=== PATIENT | male | born 1945 | race Caucasian/White ===

== ENCOUNTER → 2020-07-25 10:34 | Outpatient (BNVA) | payer MEDICARE, SELFPAY | PROVIDERS: PCP Internal Medicine; Referring Provider Internal Medicine; Visit Provider Internal Medicine Cardiovascular Disease | DX: I13.0 Hypertensive heart and chronic kidney disease with heart failure and stage 1 through stage 4 chronic kidney disease, or unspecified chronic kidney disease (principal); I50.30 Unspecified diastolic (congestive) heart failure; N18.9 Chronic kidney disease, unspecified; I48.0 Paroxysmal atrial fibrillation; E66.9 Obesity, unspecified; Z68.42 Body mass index [BMI] 45.0-49.9, adult; Z79.01 Long term (current) use of anticoagulants; Z79.899 Other long term (current) drug therapy | CPT/HCPCS: 93005; 99212 ==

== ENCOUNTER 2020-07-31 10:43 | Outpatient (REF) | payer MEDICARE, SELFPAY ==
--- NOTE | 2020-07-31 11:17 | XR_ITS ---
EXAMINATION: XR CHEST CLINICAL INFORMATION: Obesity COMPARISON: Previous chest x-ray April 2017 TECHNIQUE: 2 views of the chest were obtained. FINDINGS: The cardiac and mediastinal contours are stable. The lungs are well inflated. There is linear scarring or subsegmental atelectasis in the left midlung. The lungs are otherwise clear. There is no pleural effusion or pneumothorax. There are degenerative changes of the spine. XR/XR chest 2V IMPRESSION: No evidence for acute disease in the chest. Well-inflated lungs. Scarring or subsegmental atelectasis in the left midlung.
[2020-07-31 12:34] LABS: Alanine Aminotransferase 19 U/L (0-40); Alkaline Phosphatase 102 U/L (39-117); Anion Gap 11 (12-20); Aspartate Amino Transferase 23 U/L (5-37); Bilirubin Direct 0.4 mg/dL (0.0-0.5); Bilirubin Total 0.8 mg/dL (0.0-1.0); Blood Urea Nitrogen 32 mg/dL (9-16); Calcium 9.1 mg/dL (8.4-10.2); Carbon Dioxide 33 mmol/L (22-29); Chloride 99 mmol/L (96-108); Estimated Glomerular Filt Rate 44; Glucose Random 125 mg/dL (60-115); Potassium 4.6 mmol/l (3.3-5.1); Sodium 138 mmol/L (135-145); Total Protein 7.5 g/dL (6.5-8.0)
[2020-07-31 12:35] LABS: B Type Natriuretic Peptide 97 pg/mL (<100)
[2020-07-31 12:49] LABS: TSH reflex Free T4 1.48 mIU/mL (0.32-4.0)
== END 2020-07-31 10:44 | disposition home or self-care (01) ==
LOC: HO.LAB 10:43
PROVIDERS: PCP Internal Medicine; Visit Provider Internal Medicine Cardiovascular Disease
DX: I13.0 Hypertensive heart and chronic kidney disease with heart failure and stage 1 through stage 4 chronic kidney disease, or unspecified chronic kidney disease (principal); N18.9 Chronic kidney disease, unspecified; I50.30 Unspecified diastolic (congestive) heart failure; I48.0 Paroxysmal atrial fibrillation
CPT/HCPCS: 71046; 80048; 80076; 83880; 84443

== ENCOUNTER → 2021-01-24 10:26 | Outpatient (REF) | payer MEDICARE, SELFPAY ==
--- NOTE | 2021-01-24 10:35 | CA_ITS ---
Transthoracic Echocardiogram Patient (Last, First, Middle): Philip Ramirez P Gender: Male Date of : 1945 Age: 75 Procedure Date: 01/24/2021 Procedure Type: Transthoracic Echocardiogram Location: OP Height: 175.26 cm Weight: 140.16 kg BSA: 2.49 m2 Heart Rate: bpm BP: 127 / 70 mmHg Lottery Office Manager: KEYSHAWN Referring MD: Jean Kennedy MD Symptoms: I10 - Essential (primary) hypertension Study Quality: Fair/contrast ECG Rhythm: Sinus Conclusions: - The left ventricular systolic function is normal. The visually estimated ejection fraction is between 65-70%. - There is mild aortic valve stenosis. There is mild aortic valve regurgitation. Findings Procedure Information Contrast agent, definity, is being given per protocol without apparent complications. Left Ventricle Normal left ventricular cavity size. There is mildly increased left ventricular wall thickness. The left ventricular systolic function is normal. The visually estimated ejection fraction is between 65-70%. There is no evidence of regional wall motion abnormalities. Evidence suggests grade I (mild) diastolic dysfunction. Right Ventricle Normal right ventricular cavity size and systolic function. Atria The left atrium is mildly dilated. The right atrium is normal in size. Aortic Valve There is a normal trileaflet aortic valve. There is mild calcification of the aortic valve. There is mild aortic valve stenosis. The peak aortic velocity is 2.88 m/s with a calculated peak gradient of 33 mmHg. The mean gradient is 16 mmHg. The aortic valve area is 1.56 cm2. There is mild aortic valve regurgitation. Mitral Valve The mitral valve appears normal. There is no mitral valve regurgitation. There is no mitral valve stenosis. Pulmonic Valve The pulmonic valve was not well visualized. Tricuspid Valve There is trace tricuspid valve regurgitation. The pulmonary artery systolic pressure is normal. Great Vessels The aortic annulus, sinuses of valsalva, and asc aorta are normal in size. Venous The inferior vena cava is normal in size and collapses greater than 50% with inspiration. Pericardium/Pleural There is no evidence of pericardial effusion. Prior Study Comparison No significant change compared to prior study dated: 11/29/2019. Measurements 2D Linear Measurements IVSd: 1.06 0.6-0.9/0.6-1.0 cm LVIDd: 4.51 3.9-5.3/4.2-5.9 cm LVIDd Index: 1.81 2.4-3.2/2.2-3.1 cm/m2 LVIDs: 2.89 2.0-3.6 cm LVPWd: 1.03 0.7-1.1 cm Ao Root: 3.70 2.1-3.5 cm LA Diam: 4.10 2.7-3.8/3.0-4.0 cm LAIDs Index: 1.65 1.5-2.3 cm/m2 LV Mass: 203.59 67-162/88-224 g LV Mass Index: 81.76 43-95/49-115 g/m2 LVOT Diam: 2.10 3.0+(-)1.3 cm 2D Systolic Function EF 4C: 59.50 >55% EF 2C: 62.60 >55% EF BiP: 61.60 >55% Mitral Valve MV Pk E: 0.74 MV PK A: 0.91 MV Decel Time: 405.00 E/A: 0.80 E'Lateral: 10.30 E'Medial: 5.61 E/E' Med: 13.20 E/E' Lat: 7.20 PHT: 119.00 MVA PHT: 1.85 Decel [place]: 1.83 Aortic Valve AoV Pk Andrew: 2.88 AoV Mn Andrew: 1.83 AoV VTI: 0.64 AoV Pk Grad: 33.00 Aov Mn Grad: 16.00 TAD Cont.VTI: 1.56 LVOT LVOT Pk Andrew: 1.10 LVOT Mn Andrew: 0.75 LVOT VTI: 0.29 LVOT Pk Grad: 5.00 LVOT Mn Grad: 3.00 LVOT Diam: 2.10 LVOT Area: 3.46 Diastolic Function MV Pk E: 0.74 MV Pk A: 0.91 E/A: 0.80 E'Medial: 5.61 E/E' Med: 13.20 E' Laterial: 10.30 E/E' Lat: 7.20 Great Vessels Aorta Ao Root-2D: 3.70 2.0-3.7 cm Ao Asc: 3.90 2.1-3.4 cm Updated in Other Vendor System with Status of Final Rogelio Haro MD electronically signed on 01/26/2021 2:33:55 PM with status of Final
== END ==
LOC: HO.CARD 10:26
PROVIDERS: PCP Internal Medicine; Visit Provider Internal Medicine Cardiovascular Disease
DX: I48.0 Paroxysmal atrial fibrillation (principal); I11.0 Hypertensive heart disease with heart failure; I50.30 Unspecified diastolic (congestive) heart failure
CPT/HCPCS: 93306; Q9957

== ENCOUNTER 2021-01-30 10:23 | Outpatient (REF) | payer MEDICARE, SELFPAY ==
[2021-01-30 12:23] LABS: Mean Corpuscular HGB Conc 32.5 g/dl (31.0-36.0); Mean Corpuscular Hemoglobin 33.9 pg (27.0-33.0); Mean Corpuscular Volume 104.4 fL (80-98); Mean Platelet Volume 10.5 fL (9.4-12.4); Platelet Count 238 X10*3/uL (160-400); Red Blood Count 3.83 X10*6/uL (4.60-5.80); Red Cell Distribution Width 14.9 % (11.0-16.0); White Blood Count 9.4 X10*3/uL (4.8-10.8)
[2021-01-30 12:56] LABS: Anion Gap 13 (12-20); Blood Urea Nitrogen 23 mg/dL (9-16); Calcium 9.5 mg/dL (8.4-10.2); Carbon Dioxide 33 mmol/L (22-29); Chloride 96 mmol/L (96-108); Estimated Glomerular Filt Rate 41; Glucose Random 138 mg/dL (60-115); Potassium 4.5 mmol/L (3.3-5.1); Sodium 137 mmol/L (135-145)
== END 2021-01-30 10:24 | disposition home or self-care (01) ==
LOC: HO.LAB 10:23
PROVIDERS: PCP Internal Medicine; Referring Provider Internal Medicine; Visit Provider Internal Medicine Cardiovascular Disease
DX: I13.0 Hypertensive heart and chronic kidney disease with heart failure and stage 1 through stage 4 chronic kidney disease, or unspecified chronic kidney disease (principal); I50.30 Unspecified diastolic (congestive) heart failure; N18.9 Chronic kidney disease, unspecified; I48.0 Paroxysmal atrial fibrillation; I35.0 Nonrheumatic aortic (valve) stenosis; Z79.01 Long term (current) use of anticoagulants; Z79.899 Other long term (current) drug therapy
CPT/HCPCS: 36415; 80048; 85027; 93005; 99212

== ENCOUNTER 2021-03-03 10:18 | Emergency (ER) | payer MEDICARE, SELFPAY ==
--- NOTE | ~2021-03-03 | XR_ITS ---
EXAMINATION: XR CHEST CLINICAL INFORMATION: Shortness of breath. COMPARISON: Chest 07/31/2020 TECHNIQUE: Frontal view of the chest was obtained. FINDINGS: The lungs are well-expanded and clear. The heart size and pulmonary vascularity is normal. No gross bony abnormality seen. XR/XR chest 1V IMPRESSION: Unremarkable chest examination.
--- NOTE | ~2021-03-03 | US_ITS ---
EXAMINATION: US VENOUS ULTRASOUND WITH DOPPLER LOWER EXTREMITY, BILATERAL CLINICAL INFORMATION: Shortness of breath and bilateral lower extremity edema. COMPARISON: None TECHNIQUE: Ultrasound of the deep veins is performed from the hip to the calf with compression sonography and color and pulse Doppler assessment. Spectral analysis with color-flow imaging is performed. FINDINGS: Technically limited due to large patient's body habitus. RIGHT: There is normal venous compression and respiratory variation and augmented flow. The visualized common femoral vein, superficial femoral vein, profunda femoral vein, popliteal vein, and the trifurcation region shows no evidence of deep venous thrombosis. There is no significant popliteal fossa cyst. LEFT: There is normal venous compression and respiratory variation and augmented flow. The visualized common femoral vein, superficial femoral vein, profunda femoral vein, popliteal vein, and the trifurcation region shows no evidence of deep venous thrombosis. There is no significant popliteal fossa cyst. If the patient's symptoms persist, followup ultrasound in 5 days 7 days might be of value to exclude proximal propagation from a non-visualized calf vein. US/US venous duplex LE BI IMPRESSION: No DVT demonstrated in the bilateral lower extremity. Technically limited study due to patient's body habitus.
[2021-03-03 10:32] VITALS: BP 134/65; PULSE 69; RESP 18; TEMP 36.5; O2SAT 92; BMI 45.8
--- NOTE | 2021-03-03 12:00 | ECG_ITS ---
Test Reason : SHORTNESS OF BREATH Blood Pressure : / mmHG Vent. Rate : 058 BPM Atrial Rate : 058 BPM P-R Int : 000 ms QRS Dur : 086 ms QT Int : 426 ms P-R-T Axes : 000 -05 042 degrees QTc Int : 418 ms Atrial fibrillation with slow ventricular response Abnormal ECG When compared with ECG of 06-FEB-2016 07:19, Atrial fibrillation has replaced Sinus rhythm Referred By: Nikky Pires Electronically Signed By:ELENITA GORE MD
[2021-03-03] MEDS: Furosemide 40 MG/4 ML VIAL IVPUSH (12:54)
[2021-03-03 12:56] VITALS: BP 149/60; PULSE 59; O2SAT 99
[2021-03-03 12:57] LABS: MANUAL DIFF FLAG NO
--- NOTE | 2021-03-03 12:58 | ED.SOB ---
HPI - SOB/Dyspnea General Chief Complaint: Dyspnea Stated Complaint: DIFF BREATHING Time Seen by Provider: 03/03/21 11:59 Source: patient and family Mode of arrival: ambulatory Limitations: no limitations History of Present Illness HPI Narrative: 75-year-old male with a past medical history of atrial fibrillation currently on Xarelto, heart failure with preserved ejection fraction, aortic stenosis, hypertension, CKD and obesity presenting to the ED with complaints of shortness of breath/dyspnea on exertion/orthopnea for the past 4 days worse today with associated intermittent dry cough. Patient also reports worsening lower extremity edema. He denies any dizziness, headaches, fevers, changes in vision, nausea/vomiting, productive cough, palpitations, chest pain, abdominal pain, back pain, dysuria, calf tenderness, recent travel or sick contacts or any other symptoms complaints or concerns at this time. MD elicited complaint: shortness of breath and cough Pertinent past history: congestive heart failure and other (Atrial fibrillation, heart failure, aortic stenosis, hypertension, CKD) Onset (ago): day(s) (Four days worse today) Timing: constant Severity: moderate Exacerbating factors: lying flat, exertion, movement, coughing, inspiration and deep breaths Relieving factors: nothing Known history of: other (See above) Associated symptoms: other (Lower extremity edema) Treatment prior to arrival: none Related Data Home oxygen amount: none Home Medications Medication Instructions Recorded Confirmed allopurinol 100 mg tablet 100 mg PO tab 07/25/20 01/30/21 amiodarone 200 mg tablet 100 mg PO tab 07/25/20 01/30/21 eabhmykebo-ewvnfblitsxfd-zdjsrhwg tab PO 07/25/20 01/30/21 50 mg-325 mg-40 mg tablet cholecalciferol (vitamin D3) 25 25 mcg PO DAILY 07/25/20 01/30/21 mcg (1,000 unit) capsule multivitamin 1 tab PO DAILY 07/25/20 01/30/21 omega-3 fatty acids 1,000 mg 1,000 mg PO DAILY 07/25/20 01/30/21 capsule losartan 50 mg tablet 50 mg PO DAILY 01/30/21 01/30/21 Previous Rx's Medication Instructions Recorded propranolol 120 mg capsule,24 120 mg PO DAILY #30 cap 09/13/20 hr,extended release furosemide 20 mg tablet 20 mg PO DAILY #90 tab 02/06/21 rivaroxaban 15 mg tablet 15 mg PO DAILY #90 tab 02/06/21 furosemide [Lasix] 40 mg PO DAILY 30 Days #30 tab 03/03/21 Allergies Allergy/AdvReac Type Severity Reaction Status Date / Time No Known Allergies Allergy Unverified 06/08/20 14:43 [No Known Allergies*] Review of Systems Review of Systems: Constitutional : positive Weight loss, No Fever, No Chills, No Night Sweats, No Fatigue, No Malaise ENT/Mouth : No Hearing loss, No Ear Pain, No Nasal Congestion, No Sinus Pain, No Hoarseness, No sore throat, No Rhinorrhea, No Swallowing Difficulty Eyes: No Eye Pain, No Swelling, No Redness, No Foreign Body, No Discharge, No Vision Changes Cardiovascular : Positive shortness of breath/dyspnea on exertion/orthopnea/lower extremity edema, No Chest Pain, No Palpitations Respiratory : Positive dry intermittent Cough, No Sputum, No Wheezing, No Smoke Exposure, No Dyspnea Gastrointestinal : No Nausea, No Vomiting, No Diarrhea, No Constipation, No abdominal Pain, No Hematochezia, No Melena Genitourinary : no irregular bleeding, No Dysuria, No Urinary Frequency, No Hematuria, No Urinary Incontinence, No Urgency, No Flank Pain, No Urinary Flow Changes, No Hesitancy Musculoskeletal : No joint pain, No Myalgias, No Joint Swelling Skin : No Skin Lesions, No rash Neuro : No Weakness, No Numbness, No Paresthesias, No Loss of Consciousness, No Dizziness, No Headache Psych : No Anxiety/Panic, No Depression, No SI/HI/AH/VH, No Social Issues, Heme/Lymph: No Bruising, No Bleeding,No Lymphadenopathy Endocrine : No Polyuria, No Polydipsia, No Temperature Intolerance Yes all other systems are reviewed and are negative [facility] Past Medical History Attestation statement: The following information was validated with the patient. Medical History (HFpEF) heart failure with preserved ejection fraction Aortic stenosis CKD (chronic kidney disease) HTN (hypertension) Obesity Paroxysmal atrial fibrillation Surgical History History of surgery on wrist Family History Family History Father Cancer Mother Dementia Social History Social History Advance Directives: Yes Advance Directives Information Provided: No Advance Directives on File: No Physical Exam Vital Signs: Vital Signs: Last Vital Signs Temp 97.7 F 03/03/21 10:32 Pulse 55 03/03/21 16:07 Resp 19 03/03/21 16:07 BP 154/60 H 03/03/21 16:07 Pulse Ox 100 03/03/21 16:07 Body Mass Index 45.8 vital signs have been reviewed as normal and appeared to be correct. Blood pressure normal. Heart rate normal. Respiration rate normal. Temperature normal. Oxygen saturation hypoxic at 88-89% on RA. Appearance: Alert. Oriented X3. acute respiratory distress. Head: Normal external exam. Normocephalic. Atraumatic. Eyes: PERRLA. EOMI. Conjunctiva and sclera normal. Eyelids normal. ENT: EAC normal. TM's Normal. Pharynx normal. Uvula midline. Moist mucous membranes. No trismus noted. No drooling noted. No muffled voice noted. Neck: Normal inspection. Neck supple. FROM. No adenopathy. Thyroid Normal. No meningeal signs. No neck mass noted. CVS: Normal heart rate and rhythm. Heart sound normal. Pulses normal throughout. No murmurs/rales/gallops. Respiratory: Acute respiratory distress pain with deep inspiration although Breath sounds normal. No wheezes/rales/rhonchi noted. Chest nontender. No accessory muscle usage noted or decreased air movement noted. Abdomen: Soft and nontender. Bowel sounds normal in all 4 quadrants. No distention noted. No organomegaly noted. No visible injury noted. Back: No CVA tenderness. Full range of motion noted. No rashes/lesion/induration/fluctuance or signs of infection noted. Skin: Skin warm and dry. Normal skin color. Normal skin turgor. No rashes/lesions/lacerations noted. Extremities: No lower extremity edema. Extremities exhibit normal range of motion. Extremities nontender. Neuro: Oriented X 3. No motor deficit. No sensory deficit. Reflexes normal. Normal steady gait. No focal neuro deficits noted. Vascular: + radial pulses/+ 2 distal pedal pulses/+2 dorsalis pedis b/l. Normal cap refill. No cyanosis noted to upper extremity nails and lower extremity toes nails. Course Course Course Narrative: 12noon -75-year-old male with a past medical history of atrial fibrillation currently on Xarelto, heart failure with preserved ejection fraction, aortic stenosis, hypertension, CKD and obesity presenting to the ED with complaints of shortness of breath/dyspnea on exertion/orthopnea for the past 4 days worse today with associated intermittent dry cough. Patient also reports worsening lower extremity edema. -On exam patient is alert oriented x3 and acute respiratory distress with an oxygen of 88 through 89% on room air therefore I placed him immediately on 2-3 L of nasal cannula oxygen is now satting at 92-96% on 2-3 L of nasal cannula oxygen. Otherwise all other vitals are within normal limits. Lungs clear to auscultation. CV RRR. Positive +3 pitting edema to bilateral lower extremity although no calf tenderness is noted. Plan: Labs, chest x-ray, EKG, bilateral venous duplex ultrasound of lower extremity provide 40 mg of IV Lasix then re-evaluate. Reevaluation(s) Reevaluation #1: - labs reviewed and patient with an elevated white blood cell count at 11,000. Baseline anemia similar when compared to prior. BUN 25. Alkaline phosphate 118. BNP 270. Troponin 6.5. Otherwise all other labs are within normal limits. - EKG revealed atrial fibrillation with slow ventricular response with a ventricular rate of 58 no acute ischemic changes are noted. Similar when compared to prior EKG on 02/06/2016. - chest x-ray within normal limits no acute processes are noted. - venous duplex ultrasound of lower extremity negative for any DVTs although it was a limited study due to patient's body habitus. Therefore they recommended to repeat ultrasound in 5-7 days. - therefore I explained to the patient that he will need a CTA of his chest to evaluate for possible PE and then when he went into the CT scan room to have the CT scan done he reported that he refused to have the CT scan done due to his very claustrophobic and he is declining any medications to help him get through the CTA of his chest. - I also offered a V/Q scan although patient is also refusing reporting that he cannot stay still or lay down flat for 2 hours. - therefore ordered a VBG and plan will be to admit for hypoxia of unknown cause. Time: 15:50 Reevaluation #2: - when I went to admit the patient with Dr. Chung the patient's oxygen saturation was 100% we took him off of the oxygen through nasal cannula and he is steady at 96 through 100% on room air and he reports that he urinated over a L of urine and this is when he started to feel better. - therefore I do not believe this is the PE due to patient is already on Xarelto and is taking as prescribed daily. He also is not tachycardic he is actually bradycardic. Clinically patient appears to have fluid overload therefore I believe it is safe to discharge the patient increasing his Lasix dose to 40 mg instead of his normal 20 mg and instructions return if any new or worsening symptoms follow-up with resistance welder. Patient understands agrees with this plan. Time: 16:42 MDM - SOB/Dyspnea Medical Records Attestation: I reviewed the patient's medical records. Lab Data Attestation: I reviewed the patient's lab results. Result diagrams: 03/03/21 12:45 03/03/21 12:48 Labs: Lab Results 03/03/21 03/03/21 03/03/21 Range/Units 12:44 12:44 12:45 WBC 11.1 H (4.8-10.8) X10*3/uL RBC 3.75 L (4.60-5.80) X10*6/uL Hgb 12.5 L (14.0-18.0) g/dl Hct 39.3 L (42-52) % MCV 104.8 H (80-98) fL MCH 33.3 H (27.0-33.0) pg MCHC 31.8 (31.0-36.0) g/dl RDW 15.1 (11.0-16.0) % Plt Count 231 (160-400) X10*3/uL MPV 9.9 (9.4-12.4) fL Immature Gran % (Auto) 0.6 H (0.0-0.4) % Neut % (Auto) 79.3 H (45-73) % Lymph % (Auto) 10.4 L (20-40) % Sampson % (Auto) 7.1 (2-11) % Eos % (Auto) 2.3 (0-4) % Baso % (Auto) 0.3 (0-2) % Lymph # (Auto) 1.2 (1.2-4.9) X10*3/uL Sampson # (Auto) 0.8 (0.1-1.2) X10*3/uL Eos # (Auto) 0.3 (0.0-0.4) X10*3/uL Baso # (Auto) 0.0 (0.0-0.2) X10*3/uL Abs Immat Gran (auto) 0.07 H (0.00-0.03) X10*3/uL Absolute Neuts (auto) 8.8 H (2.0-8.3) X10*3/uL Absolute Nucleated RBC 0.000 (0.0-0.012) X10*3/uL Nucleated RBC % (auto) 0.0 (0.0-0.2) /100WBC PT (10.8-13.0) SEC INR (0.9-1.1) VBG pH (7.32-7.43) VBG pCO2 mmHg VBG pO2 mmHg VBG HCO3 (22-26) mmol/L VBG O2 Saturation % VBG Base Excess mmol/L Sodium (135-145) mmol/L Potassium (3.3-5.1) mmol/L Chloride (96-108) mmol/L Carbon Dioxide (22-29) mmol/L Anion Gap (12-20) BUN (9-16) mg/dL Creatinine (0.5-1.4) mg/dL Estim Creat Clear Calc Estimated GFR Random Glucose (60-115) mg/dL Calcium (8.4-10.2) mg/dL Magnesium (1.6-2.6) mg/dL Ferritin (20-250) ng/mL Total Bilirubin (0.0-1.0) mg/dL AST (5-37) U/L ALT (0-40) U/L Alkaline Phosphatase (39-117) U/L Lactate Dehydrogenase (118-273) U/L Troponin I High Sens (<3.5-35.0) ng/L B-Natriuretic Peptide (<100) pg/mL Total Protein (6.5-8.0) g/dL Albumin (3.5-5.0) g/dL Procalcitonin 0.06 ng/mL Urine Color Urine Appearance Urine pH (5.0-8.0) Ur Specific Kimball (1.005-1.025) Urine Protein (NEG-TRACE) MG/DL Urine Glucose (UA) (NEG) MG/DL Urine Ketones (NEG) MG/DL Urine Blood (NEG) Urine Nitrite (NEG) Ur Leukocyte Esterase (NEG) Coronavirus (PCR) NEGATIVE (Negative) Influenza Type A (PCR) NEGATIVE (Negative) Influenza Type B (PCR) NEGATIVE (Negative) RSV RNA Qual (PCR) NEGATIVE (Negative) 03/03/21 03/03/21 03/03/21 Range/Units 12:45 12:45 12:48 WBC (4.8-10.8) X10*3/uL RBC (4.60-5.80) X10*6/uL Hgb (14.0-18.0) g/dl Hct (42-52) % MCV (80-98) fL MCH (27.0-33.0) pg MCHC (31.0-36.0) g/dl RDW (11.0-16.0) % Plt Count (160-400) X10*3/uL MPV (9.4-12.4) fL Immature Gran % (Auto) (0.0-0.4) % Neut % (Auto) (45-73) % Lymph % (Auto) (20-40) % Sampson % (Auto) (2-11) % Eos % (Auto) (0-4) % Baso % (Auto) (0-2) % Lymph # (Auto) (1.2-4.9) X10*3/uL Sampson # (Auto) (0.1-1.2) X10*3/uL Eos # (Auto) (0.0-0.4) X10*3/uL Baso # (Auto) (0.0-0.2) X10*3/uL Abs Immat Gran (auto) (0.00-0.03) X10*3/uL Absolute Neuts (auto) (2.0-8.3) X10*3/uL Absolute Nucleated RBC (0.0-0.012) X10*3/uL Nucleated RBC % (auto) (0.0-0.2) /100WBC PT 18.2 H (10.8-13.0) SEC INR 1.5 H (0.9-1.1) VBG pH (7.32-7.43) VBG pCO2 mmHg VBG pO2 mmHg VBG HCO3 (22-26) mmol/L VBG O2 Saturation % VBG Base Excess mmol/L Sodium (135-145) mmol/L Potassium (3.3-5.1) mmol/L Chloride (96-108) mmol/L Carbon Dioxide (22-29) mmol/L Anion Gap (12-20) BUN (9-16) mg/dL Creatinine (0.5-1.4) mg/dL Estim Creat Clear Calc Estimated GFR Random Glucose (60-115) mg/dL Calcium (8.4-10.2) mg/dL Magnesium 2.2 (1.6-2.6) mg/dL Ferritin (20-250) ng/mL Total Bilirubin (0.0-1.0) mg/dL AST (5-37) U/L ALT (0-40) U/L Alkaline Phosphatase (39-117) U/L Lactate Dehydrogenase (118-273) U/L Troponin I High Sens 6.5 (<3.5-35.0) ng/L B-Natriuretic Peptide 270 H (<100) pg/mL Total Protein (6.5-8.0) g/dL Albumin (3.5-5.0) g/dL Procalcitonin ng/mL Urine Color Urine Appearance Urine pH (5.0-8.0) Ur Specific Kimball (1.005-1.025) Urine Protein (NEG-TRACE) MG/DL Urine Glucose (UA) (NEG) MG/DL Urine Ketones (NEG) MG/DL Urine Blood (NEG) Urine Nitrite (NEG) Ur Leukocyte Esterase (NEG) Coronavirus (PCR) (Negative) Influenza Type A (PCR) (Negative) Influenza Type B (PCR) (Negative) RSV RNA Qual (PCR) (Negative) 03/03/21 03/03/21 03/03/21 Range/Units 12:48 15:24 15:42 WBC (4.8-10.8) X10*3/uL RBC (4.60-5.80) X10*6/uL Hgb (14.0-18.0) g/dl Hct (42-52) % MCV (80-98) fL MCH (27.0-33.0) pg MCHC (31.0-36.0) g/dl RDW (11.0-16.0) % Plt Count (160-400) X10*3/uL MPV (9.4-12.4) fL Immature Gran % (Auto) (0.0-0.4) % Neut % (Auto) (45-73) % Lymph % (Auto) (20-40) % Sampson % (Auto) (2-11) % Eos % (Auto) (0-4) % Baso % (Auto) (0-2) % Lymph # (Auto) (1.2-4.9) X10*3/uL Sampson # (Auto) (0.1-1.2) X10*3/uL Eos # (Auto) (0.0-0.4) X10*3/uL Baso # (Auto) (0.0-0.2) X10*3/uL Abs Immat Gran (auto) (0.00-0.03) X10*3/uL Absolute Neuts (auto) (2.0-8.3) X10*3/uL Absolute Nucleated RBC (0.0-0.012) X10*3/uL Nucleated RBC % (auto) (0.0-0.2) /100WBC PT (10.8-13.0) SEC INR (0.9-1.1) VBG pH (7.32-7.43) VBG pCO2 mmHg VBG pO2 mmHg VBG HCO3 (22-26) mmol/L VBG O2 Saturation % VBG Base Excess mmol/L Sodium 139 (135-145) mmol/L Potassium 4.4 (3.3-5.1) mmol/L Chloride 101 (96-108) mmol/L Carbon Dioxide 33 H (22-29) mmol/L Anion Gap 9 L (12-20) BUN 25 H (9-16) mg/dL Creatinine 1.31 (0.5-1.4) mg/dL Estim Creat Clear Calc 67.9 Estimated GFR 53 Random Glucose 115 (60-115) mg/dL Calcium 8.9 D (8.4-10.2) mg/dL Magnesium (1.6-2.6) mg/dL Ferritin 71 (20-250) ng/mL Total Bilirubin 0.6 (0.0-1.0) mg/dL AST 19 (5-37) U/L ALT 14 (0-40) U/L Alkaline Phosphatase 118 H (39-117) U/L Lactate Dehydrogenase 204 (118-273) U/L Troponin I High Sens 8.9 (<3.5-35.0) ng/L B-Natriuretic Peptide (<100) pg/mL Total Protein 7.0 (6.5-8.0) g/dL Albumin 3.8 (3.5-5.0) g/dL Procalcitonin ng/mL Urine Color STRAW Urine Appearance CLEAR Urine pH 5.5 (5.0-8.0) Ur Specific Kimball 1.010 (1.005-1.025) Urine Protein NEG (NEG-TRACE) MG/DL Urine Glucose (UA) NEG (NEG) MG/DL Urine Ketones NEG (NEG) MG/DL Urine Blood NEG (NEG) Urine Nitrite NEG (NEG) Ur Leukocyte Esterase NEG (NEG) Coronavirus (PCR) (Negative) Influenza Type A (PCR) (Negative) Influenza Type B (PCR) (Negative) RSV RNA Qual (PCR) (Negative) 03/03/21 Range/Units 15:45 WBC (4.8-10.8) X10*3/uL RBC (4.60-5.80) X10*6/uL Hgb (14.0-18.0) g/dl Hct (42-52) % MCV (80-98) fL MCH (27.0-33.0) pg MCHC (31.0-36.0) g/dl RDW (11.0-16.0) % Plt Count (160-400) X10*3/uL MPV (9.4-12.4) fL Immature Gran % (Auto) (0.0-0.4) % Neut % (Auto) (45-73) % Lymph % (Auto) (20-40) % Sampson % (Auto) (2-11) % Eos % (Auto) (0-4) % Baso % (Auto) (0-2) % Lymph # (Auto) (1.2-4.9) X10*3/uL Sampson # (Auto) (0.1-1.2) X10*3/uL Eos # (Auto) (0.0-0.4) X10*3/uL Baso # (Auto) (0.0-0.2) X10*3/uL Abs Immat Gran (auto) (0.00-0.03) X10*3/uL Absolute Neuts (auto) (2.0-8.3) X10*3/uL Absolute Nucleated RBC (0.0-0.012) X10*3/uL Nucleated RBC % (auto) (0.0-0.2) /100WBC PT (10.8-13.0) SEC INR (0.9-1.1) VBG pH 7.37 (7.32-7.43) VBG pCO2 65 mmHg VBG pO2 58 mmHg VBG HCO3 39 H (22-26) mmol/L VBG O2 Saturation 86.0 % VBG Base Excess 11.0 mmol/L Sodium (135-145) mmol/L Potassium (3.3-5.1) mmol/L Chloride (96-108) mmol/L Carbon Dioxide (22-29) mmol/L Anion Gap (12-20) BUN (9-16) mg/dL Creatinine (0.5-1.4) mg/dL Estim Creat Clear Calc Estimated GFR Random Glucose (60-115) mg/dL Calcium (8.4-10.2) mg/dL Magnesium (1.6-2.6) mg/dL Ferritin (20-250) ng/mL Total Bilirubin (0.0-1.0) mg/dL AST (5-37) U/L ALT (0-40) U/L Alkaline Phosphatase (39-117) U/L Lactate Dehydrogenase (118-273) U/L Troponin I High Sens (<3.5-35.0) ng/L B-Natriuretic Peptide (<100) pg/mL Total Protein (6.5-8.0) g/dL Albumin (3.5-5.0) g/dL Procalcitonin ng/mL Urine Color Urine Appearance Urine pH (5.0-8.0) Ur Specific Kimball (1.005-1.025) Urine Protein (NEG-TRACE) MG/DL Urine Glucose (UA) (NEG) MG/DL Urine Ketones (NEG) MG/DL Urine Blood (NEG) Urine Nitrite (NEG) Ur Leukocyte Esterase (NEG) Coronavirus (PCR) (Negative) Influenza Type A (PCR) (Negative) Influenza Type B (PCR) (Negative) RSV RNA Qual (PCR) (Negative) Imaging Data Chest x-ray: Attestation: I personally reviewed and interpreted this imaging study as follows: Radiologist's impression: FINDINGS: The lungs are well-expanded and clear. The heart size and pulmonary vascularity is normal. No gross bony abnormality seen. XR/XR chest 1V IMPRESSION: Unremarkable chest examination. ECG Data Attestation: I personally reviewed and interpreted this ECG as follows: ECG interpretation date: 03/03/21 ECG interpretation time: 12:50 Interpretation: Atrial fibrillation with slow ventricular response with a ventricular rate of 58 no acute ischemic changes are noted similar compared to prior EKG. Critical Care Time Critical Care Time Critical Care Time: Yes Total Critical Care Time: 60 Attestation: I personally attest to this time spent taking care of the patient Discharge Plan Discharge Clinical Impression: CHF (congestive heart failure), Fluid overload Patient Disposition: Home, Self-Care Instructions: Heart Failure (ED) Prescriptions: New furosemide [Lasix] 40 mg tablet 40 mg PO DAILY 30 Days Qty: 30 RF: 0 No Action propranolol 120 mg capsule,extended release 24 hr 120 mg PO DAILY Qty: 30 RF: 4 Xarelto 15 mg tablet 15 mg PO DAILY Qty: 90 RF: 1 furosemide 20 mg tablet 20 mg PO DAILY Qty: 90 RF: 1 byhjaqwfmg-nzhdiujoklkhb-xzcl 50-325-40 mg tablet PO RF: 0 omega-3 fatty acids [Fish Oil Concentrate] 1,000 mg capsule 1,000 mg PO DAILY RF: 0 multivitamin Tablet 1 tab PO DAILY RF: 0 cholecalciferol (vitamin D3) 25 mcg (1,000 unit) capsule 25 mcg PO DAILY RF: 0 allopurinol 100 mg tablet 100 mg PO RF: 0 amiodarone 200 mg tablet 100 mg PO RF: 0 losartan 50 mg tablet 50 mg PO DAILY RF: 0 Referrals: Barndi Mayes MD [Primary Care Provider] - 2 days Jean Kennedy MD [Physician] - 2 days Print Language: Polish
[2021-03-03 12:59] LABS: Basophils Percent Auto 0.3 % (0-2); Eosinophils Absolute Auto 0.3 X10*3/uL (0.0-0.4); Eosinophils Percent Auto 2.3 % (0-4); Hematocrit 39.3 % (42-52); Hemoglobin 12.5 g/dl (14.0-18.0); Imm Gran Abs Auto 0.07 X10*3/uL (0.00-0.03); Imm Gran Pct Auto 0.6 % (0.0-0.4); Lymphocytes Absolute Auto 1.2 X10*3/uL (1.2-4.9); Lymphocytes Percent Auto 10.4 % (20-40); Mean Corpuscular HGB Conc 31.8 g/dl (31.0-36.0); Mean Corpuscular Hemoglobin 33.3 pg (27.0-33.0); Mean Corpuscular Volume 104.8 fL (80-98); Mean Platelet Volume 9.9 fL (9.4-12.4); Monocytes Absolute Auto 0.8 X10*3/uL (0.1-1.2); Monocytes Percent Auto 7.1 % (2-11); Neutrophils Absolute Auto 8.8 X10*3/uL (2.0-8.3); Neutrophils Percent Auto 79.3 % (45-73); Platelet Count 231 X10*3/uL (160-400); Red Blood Count 3.75 X10*6/uL (4.60-5.80); Red Cell Distribution Width 15.1 % (11.0-16.0); White Blood Count 11.1 X10*3/uL (4.8-10.8)
[2021-03-03 13:05] LABS: INTERNATIONAL NORM RATIO 1.5 (0.9-1.1); Prothrombin Time 18.2 SEC (10.8-13.0)
[2021-03-03 13:22] LABS: Alanine Aminotransferase 14 U/L (0-40); Albumin Level 3.8 g/dL (3.5-5.0); Alkaline Phosphatase 118 U/L (39-117); Anion Gap 9 (12-20); Aspartate Amino Transferase 19 U/L (5-37); Bilirubin Total 0.6 mg/dL (0.0-1.0); Blood Urea Nitrogen 25 mg/dL (9-16); Calcium 8.9 mg/dL (8.4-10.2); Carbon Dioxide 33 mmol/L (22-29); Chloride 101 mmol/L (96-108); Creatinine Clr Calc Pharmacy 67.9; Estimated Glomerular Filt Rate 53; Glucose Random 115 mg/dL (60-115); Lactate Dehydrogenase 204 U/L (118-273); Potassium 4.4 mmol/L (3.3-5.1); Sodium 139 mmol/L (135-145)
[2021-03-03 13:23] LABS: B Type Natriuretic Peptide 270 pg/mL (<100); Troponin-I High Sensitivity 6.5 ng/L (<3.5-35.0)
[2021-03-03 13:38] LABS: Procalcitonin 0.06 ng/mL
[2021-03-03 13:41] LABS: Ferritin 71 ng/mL (20-250)
[2021-03-03 13:42] LABS: Magnesium 2.2 mg/dL (1.6-2.6)
[2021-03-03 13:50] LABS: Influenza A PCR NEGATIVE (Negative); Influenza B PCR NEGATIVE (Negative); Resp Syncy Virus RNA Qual PCR NEGATIVE (Negative); SARS COV2 PCR INHOUSE NEGATIVE (Negative)
[2021-03-03 13:52] VITALS: O2SAT 88
[2021-03-03 15:31] LABS: Glucose Urine UA NEG (NEG); Leukocyte Esterase Urine NEG (NEG); Nitrite Urine NEG (NEG); PH 5.5 (5.0-8.0); Urine Blood NEG (NEG); Urine Ketones NEG (NEG); Urine Protein NEG (NEG-TRACE)
[2021-03-03 15:33] LABS: Appearance Urine CLEAR; Color Urine STRAW
[2021-03-03 15:52] LABS: VBG HCO3 39 mmol/L (22-26); VBG pCO2 65 mmHg; VBG pH 7.37 (7.32-7.43); VBG pO2 58 mmHg
[2021-03-03 15:59] LABS: Venous Blood Gas Refer to POC result
[2021-03-03 16:07] VITALS: BP 154/60; PULSE 55; RESP 19; O2SAT 100
[2021-03-03 16:24] LABS: Troponin-I High Sensitivity 8.9 ng/L (<3.5-35.0)
== END 2021-03-03 17:44 | disposition home or self-care (01) ==
PROVIDERS: Physician Assistant Medical; Emergency Provider Emergency Medicine Emergency Medical Services; PCP Internal Medicine
DX: I13.0 Hypertensive heart and chronic kidney disease with heart failure and stage 1 through stage 4 chronic kidney disease, or unspecified chronic kidney disease (principal); I50.30 Unspecified diastolic (congestive) heart failure; N18.9 Chronic kidney disease, unspecified; R60.0 Localized edema; R06.02 Shortness of breath; I48.0 Paroxysmal atrial fibrillation; Z79.01 Long term (current) use of anticoagulants; Z20.822 Contact with and (suspected) exposure to COVID-19
CPT/HCPCS: 0241U; 36415; 71045; 80053; 81003; 82728; 83615; 83735; 83880; 84145; 84484; 85025; 85610; 93005; 93970; 96374; 99284; 99291; J1940

== ENCOUNTER 2021-03-06 05:51 | Emergency (ER) | payer MEDICARE, SELFPAY ==
[2021-03-06] VITALS (7 sets, daily range): BP systolic 113–133; BP diastolic 53–66; PULSE 51–61; RESP 14–22; TEMP 36.6; O2SAT 91–93; BMI 45.6
--- NOTE | 2021-03-06 | ECG_ITS ---
Test Reason : CHEST PRESSURE Blood Pressure : / mmHG Vent. Rate : 063 BPM Atrial Rate : 063 BPM P-R Int : 296 ms QRS Dur : 086 ms QT Int : 406 ms P-R-T Axes : 110 -02 058 degrees QTc Int : 415 ms Sinus rhythm with 1st degree A-V block with Premature supraventricular complexes Nonspecific ST abnormality Abnormal ECG When compared with ECG of 03-MAR-2021 12:50, No significant changes seen Referred By: Generic ED Physician Electronically Signed By:GILL SONG
--- NOTE | ~2021-03-06 | XR_ITS ---
EXAMINATION: XR CHEST CLINICAL INFORMATION: Shortness of breath COMPARISON: 03/03/2021 TECHNIQUE: Frontal view of the chest was obtained. XR/XR chest 1V FINDINGS/IMPRESSION: No focal consolidation, pleural effusion or pneumothorax. Pulmonary vascular congestion. The cardiomediastinal silhouette is stable. No acute osseous abnormality.
--- NOTE | 2021-03-06 06:34 | ED.CHESTPAIN ---
HPI - Chest Pain General Chief Complaint: Chest Pain Stated Complaint: tight chest pain Time Seen by Provider: 03/06/21 06:34 Source: patient Mode of arrival: ambulatory Limitations: no limitations History of Present Illness HPI narrative: Patient with chest pain and shortness of breath. Patient has a history of congestive heart failure. Not on oxygen at home. Patient states he has not had a stress test or cardiac cath. 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 Today patient had 6 hours of chest pain with shortness of breath MD complaint: chest heaviness Pertinent past history: other (CHF, Afib) Onset (ago): hour(s) Timing of current episode: now resolved Prior episodes: Yes Onset: during rest Pain location: substernal Pain radiation: none Severity: mild Quality: tightness Associated symptoms: dyspnea Risk Factors Coronary artery disease risk factors: hyperlipidemia and hypertension Related Data Home Medications Medication Instructions Recorded Confirmed allopurinol 100 mg tablet 100 mg PO tab 07/25/20 01/30/21 amiodarone 200 mg tablet 100 mg PO tab 07/25/20 01/30/21 pzfhhphzix-qznhquihqyxey-chuiyfjy tab PO 07/25/20 01/30/21 50 mg-325 mg-40 mg tablet cholecalciferol (vitamin D3) 25 25 mcg PO DAILY 07/25/20 01/30/21 mcg (1,000 unit) capsule multivitamin 1 tab PO DAILY 07/25/20 01/30/21 omega-3 fatty acids 1,000 mg 1,000 mg PO DAILY 07/25/20 01/30/21 capsule losartan 50 mg tablet 50 mg PO DAILY 01/30/21 01/30/21 Previous Rx's Medication Instructions Recorded propranolol 120 mg capsule,24 120 mg PO DAILY #30 cap 09/13/20 hr,extended release furosemide 20 mg tablet 20 mg PO DAILY #90 tab 02/06/21 rivaroxaban 15 mg tablet 15 mg PO DAILY #90 tab 02/06/21 furosemide [Lasix] 40 mg PO DAILY 30 Days #30 tab 03/03/21 Allergies Allergy/AdvReac Type Severity Reaction Status Date / Time No Known Allergies Allergy Unverified 06/08/20 14:43 [No Known Allergies*] Review of Systems Constitutional: Constitutional: Reports no additional constitutional complaints Eyes: Eyes: Reports no additional eye complaints ENT: Denies dizziness Cardiovascular: Cardiovascular: Reports no additional cardiovascular complaints Respiratory: Respiratory: Reports as per HPI Gastrointestinal: Gastrointestinal: Reports no additional gastrointestinal complaints Musculoskeletal: Musculoskeletal: Reports no additional musculoskeletal complaints Integumentary/Breasts: Skin/Breast: Denies rash Neurologic: Reports system reviewed and no additional complaints, except as documented, Denies dizziness and Denies Sensory deficit (Neuro) Psychiatric: Psychiatric: Denies anxiety [facility] Past Medical History Medical History (HFpEF) heart failure with preserved ejection fraction Aortic stenosis CKD (chronic kidney disease) HTN (hypertension) Obesity Paroxysmal atrial fibrillation Surgical History History of surgery on wrist Family History Family History Father Cancer Mother Dementia Social History Social History Alcohol intake: never Patient Tobacco Use Status: Never used Tobacco Use of substances other than those prescribed or required for medical reasons: No Advance Directives: No Advance Directives Information Provided: No Physical Exam Vital Signs: Vital Signs: Last Vital Signs Temp 97.9 F 03/06/21 06:03 Pulse 52 03/06/21 09:29 Resp 14 03/06/21 09:29 BP 117/59 L 03/06/21 09:29 Pulse Ox 93 03/06/21 09:29 Body Mass Index 45.6 Const: Other: chronically ill Nutritional Appearance: obese Orientation/consciousness: oriented to person and patient oriented x3 Limitations: no limitations HENMT: Head: Yes normal to inspection Ears: external ears normal General nose exam: Normal external nose present Mouth: Normal oral and palatal mucosa present and oropharynx normal Throat: Yes posterior oropharynx normal Eyes: General: appearance normal, both eyes and all related structures Neck: Other: supple Neck: Yes normal visual inspection Chest: Chest palpation & inspection: normal inspection of the chest Resp: Other: crackles at the bases Cardio: Jugular venous distension: no JVD Rate: regular rate Rhythm: regular rhythm Heart sounds: S1 normal heart sound present and S2 normal heart sound present GI: Inspection: Yes normal to inspection Palpation (GI): Soft to palpation, nontender and No hepatosplenomegaly present Auscultation: normal bowel sounds : General: Yes no CVA tenderness Back/Spine/Pelvis: Back: no CVA tenderness Skin: General skin exam: no rashes or lesions noted Neuro: General: oriented to person and patient oriented x3 Cranial nerves: Yes CN's II-XII intact bilaterally Motor exam (neuro): 5/5 motor strength present throughout Sensory Exam: No Sensory deficit (Neuro) Extrem: Other: 3+ edema bilaterally Psych: Appearance: grossly normal Course Reevaluation(s) Reevaluation #1: Patient with good story for cardiac disease, despite negative BNP and troponin. Will discuss with Dr. Kennedy. Reevaluation #2: Discussed with Dr. Haro, he offered admission and patient refused Time: 09:28 Reevaluation #3: troponin remained flat, patient diuresed will have patient follow up with Dr. Kennedy Time: 10:50 [facility] - Chest Pain Lab Data Result diagrams: 03/06/21 07:10 03/06/21 08:02 Labs: Lab Results 03/06/21 03/06/21 03/06/21 Range/Units 07:10 07:10 08:02 WBC 11.3 H (4.8-10.8) X10*3/uL RBC 3.67 L (4.60-5.80) X10*6/uL Hgb 12.4 L (14.0-18.0) g/dl Hct 38.2 L (42-52) % MCV 104.1 H (80-98) fL MCH 33.8 H (27.0-33.0) pg MCHC 32.5 (31.0-36.0) g/dl RDW 15.3 (11.0-16.0) % Plt Count 236 (160-400) X10*3/uL MPV 10.3 (9.4-12.4) fL Immature Gran % (Auto) 0.5 H (0.0-0.4) % Neut % (Auto) 80.4 H (45-73) % Lymph % (Auto) 9.9 L (20-40) % [place] % (Auto) 6.4 (2-11) % Eos % (Auto) 2.5 (0-4) % Baso % (Auto) 0.3 (0-2) % Lymph # (Auto) 1.1 L (1.2-4.9) X10*3/uL [place] # (Auto) 0.7 (0.1-1.2) X10*3/uL Eos # (Auto) 0.3 (0.0-0.4) X10*3/uL Baso # (Auto) 0.0 (0.0-0.2) X10*3/uL Abs Immat Gran (auto) 0.06 H (0.00-0.03) X10*3/uL Absolute Neuts (auto) 9.1 H (2.0-8.3) X10*3/uL Absolute Nucleated RBC 0.000 (0.0-0.012) X10*3/uL Nucleated RBC % (auto) 0.0 (0.0-0.2) /100WBC Sodium 141 (135-145) mmol/L Potassium 3.9 (3.3-5.1) mmol/L Chloride 98 (96-108) mmol/L Carbon Dioxide 34 H (22-29) mmol/L Anion Gap 13 (12-20) BUN 29 H (9-16) mg/dL Creatinine 1.67 H (0.5-1.4) mg/dL Estim Creat Clear Calc 53.2 Estimated GFR 40 Random Glucose 152 H (60-115) mg/dL Calcium 9.6 D (8.4-10.2) mg/dL Troponin I High Sens 10.1 (<3.5-35.0) ng/L B-Natriuretic Peptide 113 H (<100) pg/mL 03/06/21 Range/Units 09:37 WBC (4.8-10.8) X10*3/uL RBC (4.60-5.80) X10*6/uL Hgb (14.0-18.0) g/dl Hct (42-52) % MCV (80-98) fL MCH (27.0-33.0) pg MCHC (31.0-36.0) g/dl RDW (11.0-16.0) % Plt Count (160-400) X10*3/uL MPV (9.4-12.4) fL Immature Gran % (Auto) (0.0-0.4) % Neut % (Auto) (45-73) % Lymph % (Auto) (20-40) % [place] % (Auto) (2-11) % Eos % (Auto) (0-4) % Baso % (Auto) (0-2) % Lymph # (Auto) (1.2-4.9) X10*3/uL [place] # (Auto) (0.1-1.2) X10*3/uL Eos # (Auto) (0.0-0.4) X10*3/uL Baso # (Auto) (0.0-0.2) X10*3/uL Abs Immat Gran (auto) (0.00-0.03) X10*3/uL Absolute Neuts (auto) (2.0-8.3) X10*3/uL Absolute Nucleated RBC (0.0-0.012) X10*3/uL Nucleated RBC % (auto) (0.0-0.2) /100WBC Sodium (135-145) mmol/L Potassium (3.3-5.1) mmol/L Chloride (96-108) mmol/L Carbon Dioxide (22-29) mmol/L Anion Gap (12-20) BUN (9-16) mg/dL Creatinine (0.5-1.4) mg/dL Estim Creat Clear Calc Estimated GFR Random Glucose (60-115) mg/dL Calcium (8.4-10.2) mg/dL Troponin I High Sens 10.0 (<3.5-35.0) ng/L B-Natriuretic Peptide (<100) pg/mL ECG Data ECG #1: Attestation: I personally reviewed and interpreted this ECG as follows: Interpretation: sinus 1st degree AV Block, no st or twave changes Discharge Plan Discharge Clinical Impression: Chest pain Qualifiers: Chest pain type: precordial pain Qualified Code(s): R07.2 - Precordial pain (HFpEF) heart failure with preserved ejection fraction Qualifiers: Heart failure chronicity: acute on chronic Qualified Code(s): I50.33 - Acute on chronic diastolic (congestive) heart failure Patient Disposition: Home, Self-Care Instructions: Chest Pain (ED) Additional Instructions: return for increasing chest pain or shortness of breath. You need to see Dr. kennedy in the next 3 days Prescriptions: No Action propranolol 120 mg capsule,extended release 24 hr 120 mg PO DAILY Qty: 30 RF: 4 Xarelto 15 mg tablet 15 mg PO DAILY Qty: 90 RF: 1 furosemide 20 mg tablet 20 mg PO DAILY Qty: 90 RF: 1 furosemide [Lasix] 40 mg tablet 40 mg PO DAILY 30 Days Qty: 30 RF: 0 zmeymjdupw-flgcpogvvrssf-uaec 50-325-40 mg tablet PO RF: 0 omega-3 fatty acids [Fish Oil Concentrate] 1,000 mg capsule 1,000 mg PO DAILY RF: 0 multivitamin Tablet 1 tab PO DAILY RF: 0 cholecalciferol (vitamin D3) 25 mcg (1,000 unit) capsule 25 mcg PO DAILY RF: 0 allopurinol 100 mg tablet 100 mg PO RF: 0 amiodarone 200 mg tablet 100 mg PO RF: 0 losartan 50 mg tablet 50 mg PO DAILY RF: 0 Referrals: Jean Kennedy MD [Physician] - 2 days
[2021-03-06 07:42] LABS: MANUAL DIFF FLAG NO
[2021-03-06 07:45] LABS: Basophils Percent Auto 0.3 % (0-2); Eosinophils Absolute Auto 0.3 X10*3/uL (0.0-0.4); Eosinophils Percent Auto 2.5 % (0-4); Hematocrit 38.2 % (42-52); Hemoglobin 12.4 g/dl (14.0-18.0); Imm Gran Abs Auto 0.06 X10*3/uL (0.00-0.03); Imm Gran Pct Auto 0.5 % (0.0-0.4); Lymphocytes Absolute Auto 1.1 X10*3/uL (1.2-4.9); Lymphocytes Percent Auto 9.9 % (20-40); Mean Corpuscular HGB Conc 32.5 g/dl (31.0-36.0); Mean Corpuscular Hemoglobin 33.8 pg (27.0-33.0); Mean Corpuscular Volume 104.1 fL (80-98); Mean Platelet Volume 10.3 fL (9.4-12.4); Monocytes Absolute Auto 0.7 X10*3/uL (0.1-1.2); Monocytes Percent Auto 6.4 % (2-11); Neutrophils Absolute Auto 9.1 X10*3/uL (2.0-8.3); Neutrophils Percent Auto 80.4 % (45-73); Platelet Count 236 X10*3/uL (160-400); Red Blood Count 3.67 X10*6/uL (4.60-5.80); Red Cell Distribution Width 15.3 % (11.0-16.0); White Blood Count 11.3 X10*3/uL (4.8-10.8)
[2021-03-06] MEDS: Nitroglycerin 2 % Oint 1 GM Packet 1 INCH TRANSDERMA (07:46)
[2021-03-06] MEDS: Aspirin Enteric Coated 81 MG TABLET.DR 162 MG PO (07:47)
[2021-03-06 08:12] LABS: B Type Natriuretic Peptide 113 pg/mL (<100); Troponin-I High Sensitivity 10.1 ng/L (<3.5-35.0)
[2021-03-06 08:51] LABS: Anion Gap 13 (12-20); Blood Urea Nitrogen 29 mg/dL (9-16); Calcium 9.6 mg/dL (8.4-10.2); Carbon Dioxide 34 mmol/L (22-29); Chloride 98 mmol/L (96-108); Creatinine Clr Calc Pharmacy 53.2; Estimated Glomerular Filt Rate 40; Glucose Random 152 mg/dL (60-115); Potassium 3.9 mmol/L (3.3-5.1); Sodium 141 mmol/L (135-145)
--- NOTE | 2021-03-06 09:00 | PC.NURSE ---
Patient continues to sit up on side of bed in no acute distress. Patient states shortness of breath sensation is better.
--- NOTE | 2021-03-06 09:25 | PC.NURSE ---
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
[2021-03-06] MEDS: Furosemide 40 MG/4 ML VIAL IVPUSH (09:29)
--- NOTE | 2021-03-06 09:34 | P.CONCA_ITS ---
History of Present Illness History of Present Illness Date of Service: 03/06/21 Consult reason: congestive heart failure Chief complaint: tight chest pain Narrative: This is a cardiology consultation regarding shortness of breath and chest pressure. He was recently in the ER with complaints of shortness of breath and some intermittent dry cough. He also had worsening lower extremity edema. Possible increase in fluid intake but not clear. He states that his d iuretic dose was increased and was sent home. Now he returns stating that he did feel some improvement but again overnight had some shortness of breath and also had some chest pressure. He still has leg edema. Otherwise no known coronary disease. He has seen by Dr. Kennedy in our office. He has a history of diastolic heart failure, paroxysmal atrial fibrillation and mild aortic stenosis. Review of Systems Review of Systems: Yes all other systems are reviewed and are negative Cardiovascular: Cardiovascular: Reports as per HPI, Reports no additional cardiovascular complaints, Denies acrocyanosis, Denies cool extremities, Denies painful fingertips, Denies chest pain, Denies chest pain at rest, Denies diaphoresis, Denies syncope, Denies irregular heart rhythm, Denies claudication, Denies leg edema, Denies lightheadedness, Denies palpitations and Reports dyspnea Respiratory: Respiratory: Reports dyspnea Neurologic: Denies syncope Endocrine: Endocrine: Denies palpitations PMFSH Past Medical History Medical History (HFpEF) heart failure with preserved ejection fraction Aortic stenosis CKD (chronic kidney disease) HTN (hypertension) Obesity Paroxysmal atrial fibrillation Family History Family History Father Cancer Mother Dementia Surgical History Surgical History History of surgery on wrist Social History Social History Alcohol intake: never Patient Tobacco Use Status: Never used Tobacco Use of substances other than those prescribed or required for medical reasons: No Advance Directives: No Advance Directives Information Provided: No Meds Allergies Allergy/AdvReac Type Severity Reaction Status Date / Time No Known Allergies Allergy Unverified 06/08/20 14:43 [No Known Allergies*] Home Medications Medication Instructions Recorded Confirmed Last Taken Type allopurinol 100 mg tablet 100 mg PO tab 07/25/20 01/30/21 Unknown History amiodarone 200 mg tablet 100 mg PO tab 07/25/20 01/30/21 Unknown History giguadvllj-neopukxejvcul-ekyiglfv tab PO 07/25/20 01/30/21 Unknown History 50 mg-325 mg-40 mg tablet cholecalciferol (vitamin D3) 25 25 mcg PO DAILY 07/25/20 01/30/21 Unknown History mcg (1,000 unit) capsule multivitamin 1 tab PO DAILY 07/25/20 01/30/21 Unknown History omega-3 fatty acids 1,000 mg 1,000 mg PO DAILY 07/25/20 01/30/21 Unknown History capsule losartan 50 mg tablet 50 mg PO DAILY 01/30/21 01/30/21 Unknown History Physical Exam Vital Signs: Vital Signs: Last Vital Signs Temp 97.9 F 03/06/21 06:03 Pulse 52 03/06/21 09:29 Resp 14 03/06/21 09:29 BP 117/59 L 03/06/21 09:29 Pulse Ox 93 03/06/21 09:29 Body Mass Index 45.6 Const: General: cooperative, comfortable and no acute distress Orientation/consciousness: patient oriented x3 HENMT: Other: Unremarkable Neck: Neck: Yes normal visual inspection Chest: Chest palpation & inspection: normal inspection of the chest Resp: Auscultation: clear to auscultation bilaterally, crackles (few basal inspiratory) and no wheezes Cardio: Jugular venous distension: no JVD Palpation: normal PMI Heart sounds: S1 normal heart sound present, S2 normal heart sound present, no gallops, Murmur heart sound present systolic early, II/ and at the right sternal border and no rubs GI: Palpation (GI): Soft to palpation Back/Spine/Pelvis: Other: unremarkable Skin: General skin exam: no rashes or lesions noted Neuro: General: patient oriented x3 Extrem: General: Yes edema (2+ LE) Psych: Mental Status: mental status grossly normal Results Labs and Meds Result diagrams: 03/06/21 07:10 03/06/21 08:02 Lab results: Laboratory Results - last 24 hr 03/06/21 03/06/21 03/06/21 07:10 07:10 08:02 WBC 11.3 H RBC 3.67 L Hgb 12.4 L Hct 38.2 L MCV 104.1 H MCH 33.8 H MCHC 32.5 RDW 15.3 Plt Count 236 MPV 10.3 Immature Gran % (Auto) 0.5 H Neut % (Auto) 80.4 H Lymph % (Auto) 9.9 L [place] % (Auto) 6.4 Eos % (Auto) 2.5 Baso % (Auto) 0.3 Lymph # (Auto) 1.1 L [place] # (Auto) 0.7 Eos # (Auto) 0.3 Baso # (Auto) 0.0 Abs Immat Gran (auto) 0.06 H Absolute Neuts (auto) 9.1 H Absolute Nucleated RBC 0.000 Nucleated RBC % (auto) 0.0 Sodium 141 Potassium 3.9 Chloride 98 Carbon Dioxide 34 H Anion Gap 13 BUN 29 H Creatinine 1.67 H Estim Creat Clear Calc 53.2 Estimated GFR 40 Random Glucose 152 H Calcium 9.6 D Troponin I High Sens 10.1 B-Natriuretic Peptide 113 H ECG Attestation: I personally reviewed and interpreted this ECG as follows: Interpretation: EKG today with sinus rhythm at 63/Min; prolonged MS interval 2 almost 296 milliseconds but difficult to assess as there is baseline artifact and no ischemic changes. Imaging Radiologist's impression: Impressions Chest X-Ray 03/06/21 06:43 FINDINGS/IMPRESSION: No focal consolidation, pleural effusion or pneumothorax. Pulmonary vascular congestion. The cardiomediastinal silhouette is stable. No acute osseous abnormality. Assessment and Plan (1) Acute on chronic diastolic (congestive) heart failure: Status: Acute (2) Paroxysmal atrial fibrillation: Status: Acute EKG does not show any ischemic changes. Sinus rhythm with long MS. Chest x-ray reported to have pulmonary vascular congestion but no effusion or other findings. Labs show elevated creatinine 1.6, BUN 29, potassium 3.9. High sensitivity troponins that 10. High sensitivity troponins during the recent ER visit was also normal. Cardiac BNP today is 113. This is actually better than the recent BNP of 270. His baseline is 97. Overall, he could still be in some acute on chronic diastolic heart failure. He is taking Lasix 40 mg daily. We can do an IV dose now and then double up the 40 mg 2 twice a day for 3 days or so. He does have baseline renal insufficiency and hence we will need to closely monitor his creatinine and I will order repeat labs in about 3 days or so. With regard to the chest pressure, he needs assessment for ischemic heart disease. A prior dobutamine stress echo from 2018 was indeterminate. He states he cannot do a nuclear stress test due to claustrophobia. He cannot walk on the treadmill either. Hence I will order repeat dobutamine stress echo again to be performed in the next few days. We discussed both admission and inpatient workup versus outpatient management as above and patient strongly prefers to rather go home from the ER. If any recurrent chest pressure, I strongly advised him to return back to the ER and then he will rather require inpatient workup then. Follow-up appointment with Dr. Kennedy will be arranged. Procedures Date of Service Date of Service: 03/06/21
--- NOTE | 2021-03-06 09:48 | PC.NURSE ---
Patient denies and shortness of breath, chest pressure or chest pain currently. Respirations are even and nonlabored
--- NOTE | 2021-03-06 10:50 | PC.NURSE ---
Patient is sitting up on side of bed in no distress. Pt has voided 150ml urine since being given lasix
== END 2021-03-06 11:05 | disposition home or self-care (01) ==
PROVIDERS: Emergency Provider Emergency Medicine
DX: R07.2 Precordial pain (principal); I13.0 Hypertensive heart and chronic kidney disease with heart failure and stage 1 through stage 4 chronic kidney disease, or unspecified chronic kidney disease; I50.33 Acute on chronic diastolic (congestive) heart failure; N18.9 Chronic kidney disease, unspecified; I48.0 Paroxysmal atrial fibrillation; R06.02 Shortness of breath
CPT/HCPCS: 36415; 71045; 80048; 83880; 84484; 85025; 93005; 96374; 99285; J1940

== ENCOUNTER → 2021-03-13 10:37 | Outpatient (REF) | payer MEDICARE, SELFPAY ==
--- NOTE | 2021-03-13 10:40 | CA_ITS ---
Acquisition Time: 2021-03-13 10:47:18 Total Exercise Time: 00:27:01 Test Indications: cp, sob Medications: see chart Protocol: DOBUTAMINE Max HR: 106 BPM 73% of Pred: 145 BPM Max BP: 130/070 mmHG Max Work Load: 1.0 METS Pharmacological stress test with Dobutamine infusion to max dose of 40mcq/kg/min achieving heart rate of 65, 45% of MPHR ( baseline heart rate 50, 35% MPHR), then given Atropine 0.4mg IVP with achieving heart rate into the 80s, without anginal symptoms, with isolated PACs and brief accelerated junctional rhythm 1 min post atropine given, with blunted BP response to infusion/ atropine with max BP 116/56 during test and low BP of 82/50 in recovery, (Baseline BP 128/70), with nondiagnostic EKG for ischemia due to suboptimal heart rate. In recovery he was given 350cc of NS IV to help raise BP. Echo images obtained by tech at rest, at 20mcg dobutamine dose and at peak heart rate. Definity contrast used. Test reviewed with Dr Haro. Referred By: Rogelio Haro Overread By: VICENTE OLIVIA
== END ==
LOC: HO.CARD 10:37
PROVIDERS: Visit Provider Internal Medicine
DX: I50.33 Acute on chronic diastolic (congestive) heart failure (principal)
CPT/HCPCS: 93350; J0461; J1250; Q9957

== ENCOUNTER → 2021-03-28 10:33 | Outpatient (REF) | payer MEDICARE, SELFPAY ==
--- NOTE | 2021-03-28 10:37 | CA_ITS ---
Acquisition Time: 2021-03-28 10:53:02 Total Exercise Time: 00:30:00 Test Indications: Dyspnea Medications: ALLOPURINOL AMIODORONE FUROSEMIDE LOSARTAN PROPRANOLOL XARELTO Protocol: DOBUTAMINE Max HR: 118 BPM 81% of Pred: 145 BPM Max BP: 148/048 mmHG Max Work Load: 1.0 METS Pharmacological stress test with Dobutamine infusion to max of 20mcq/kg/min achieving heart rate 98 b/min, 68% MPHR, with hypotensive response to infusions with BP drop from 134/68 at baseline to 90/42 at peak infusion. Drip stopped, 100cc bolus of normal saline given, BP quickly improved to 126/54. Atropine 0.4mg IVP given to assist with raising heart rate, achieving heart rate 118 b/min, 81% MPHR, without anginal symptoms, with isolated PACs, atrial cuplets and 3-4 beat atrial runs, with normotensive response to atropine, with nondiagnostic EKG for ischemia due to suboptimal heart rate, however no noted ischemia at 81% MPHR. Echo images obtained by [employer] at rest, at mid infusion and peak heart rates. Definity contrast used. Recovered for 10 min post test and condition stable. Test reviewed with Dr Haro. Referred By: Erika Rudolph Overread By: ERIKA RUDOLPH
== END ==
LOC: HO.CARD 10:33
PROVIDERS: Visit Provider Nurse Practitioner Family
DX: I50.33 Acute on chronic diastolic (congestive) heart failure (principal)
CPT/HCPCS: 93350; J0461; J1250; Q9957

== ENCOUNTER → 2021-04-10 10:07 | Outpatient (REF) | payer MEDICARE, SELFPAY ==
--- NOTE | ~2021-04-10 | NM_ITS ---
Myocardial perfusion study Indication: Chest pain to evaluate for myocardial ischemia Technique: The patient was brought in for a Lexiscan perfusion study on 04/10/2021. Patient performed low-level exercise and was injected 0.4 mg of Lexiscan intravenously. Within a minute of injection, 44 mCi of sestamibi was given intravenously. Images were obtained using the SPECT gamma camera interlaced with the gating device. Images were obtained in supine position. Resting perfusion study was performed on 04/12/2021. Patient was administered 44 mCi of sestamibi intravenously at rest. Images were then obtained in supine position. Images obtained with and without CT attenuation. Total DLP 162 mGy-cm. Images were processed with the software and compared side to side in short axis, horizontal long axis and vertical long axis views. Findings: The stress perfusion study showed nonattenuated images show normal uptake of radiotracer in all segments of LV myocardium. There is suggestion of left ventricle hypertrophy corrected images suboptimal with mildly to moderately reduced uptake in the septum reduced uptake in the distal septum and apex of the LV myocardium.. The gated study shows normal LV systolic function with calculated LVEF of 51%. LV cavity is normal in size. The gated study shows normal systolic wall thickening and contraction of segments. Resting study shows no change in perfusion pattern compared to stress perfusion study. Gating at rest reveals normal systolic wall motion with ejection fraction at 65%. The findings are consistent with no reversible defect suggestive of ischemia.. NM/NM ulysses perf SPECT rest & str Impression: 1. Myocardial perfusion imaging study shows likely normal myocardial perfusion 2. Gated LVEF is 55% 3. Transient ischemic dilatation present EKG is nondiagnostic for ischemia
--- NOTE | 2021-04-10 10:47 | CA_ITS ---
Acquisition Time: 2021-04-10 10:28:04 Total Exercise Time: 00:02:00 Test Indications: cp, sob Medications: see chart Protocol: LEXISCAN Max HR: 070 BPM 48% of Pred: 145 BPM Max BP: 134/068 mmHG Max Work Load: 1.0 METS Pharmacological stress test with Lexiscan injection, while sitting and kicking his legs, without anginal symptoms, with isolated PACs, with normotensive response to injection, with nondiagnostic EKG for ischemia. Nuclear images pending. Test reviewed with Dr Kennedy. Referred By: Jean Kennedy Overread By: VICENTE OLIVIA
== END ==
LOC: HO.CARD 10:07
PROVIDERS: Visit Provider Internal Medicine Cardiovascular Disease
DX: R07.9 Chest pain, unspecified (principal)
CPT/HCPCS: 78452; 93017; A9500; J0280; J2785

== ENCOUNTER 2021-06-06 06:56 | Emergency (ER) | payer MEDICARE, SELFPAY ==
--- NOTE | ~2021-06-06 | XR_ITS ---
EXAMINATION: XR CHEST CLINICAL INFORMATION: Dyspnea COMPARISON: Previous chest x-ray most recent February 2021 TECHNIQUE: Frontal view of the chest was obtained. FINDINGS: The cardiac silhouette is upper normal in size but stable. The right pulmonary hilum appears slightly prominent. This is similar to previous chest x-rays. The lungs are otherwise clear. There is no pleural effusion or pneumothorax. No acute bone abnormality is seen. XR/XR chest 1V IMPRESSION: No evidence for acute disease in the chest.
--- NOTE | ~2021-06-06 | CT_ITS ---
EXAMINATION: CT CHEST WITHOUT CONTRAST CLINICAL INFORMATION: Dyspnea. Evaluate for pneumonia. COMPARISON: Previous chest x-rays most recent from earlier the same day TECHNIQUE: Multidetector volumetric CT imaging of the chest was done. Axial MIP volume rendering provided. Sagittal and coronal reformatted images were obtained. This CT examination was performed using dose optimization techniques as appropriate, variously including the following: *Automated exposure control *Adjustment of mA and/or kV according to patient size (this includes techniques or standardized protocols for targeted exams where dose is matched to indication/reason for exam; i.e. extremities or head) *Use of iterative reconstruction technique DLP: 276 mGy-cm FINDINGS: DOOR CAPTAIN: LUNGS: There are increased peripheral interstitial markings seen at the lung bases with increased reticulation. There is traction bronchiolectasis seen in the bilateral lower lobes. The lungs are otherwise clear. No evidence of a pneumonia is seen. No endobronchial or endotracheal lesion is seen. There are scattered small lower lobe calcified nodules versus parenchymal calcifications related interstitial disease. The largest measures 3 mm in the right lower lobe axial image 313 series 4. There are scattered areas of increased attenuation seen in the upper lobes. This may represent areas of air-trapping and hypoventilatory changes. No honeycombing, evidence of emphysema or endobronchial or endotracheal lesion. MEDIASTINUM: There is diffuse mediastinal lymphadenopathy. Largest lymph nodes are upper normal in size. No enlarged lymph nodes are seen. The heart does not appear enlarged. There is coronary artery calcification. There is no pericardial effusion. PLEURA: There is no pleural effusion. No pleural mass or thickening. AXILLA: No lymphadenopathy. UPPER ABDOMEN: There are low-attenuation liver lesions probably representing cysts. There are small liver calcifications. OSSEOUS STRUCTURES: There are degenerative changes of the spine. CT/CT chest wo con IMPRESSION: No evidence of pneumonia. Mild peripheral interstitial lung disease.
[2021-06-06 07:32] VITALS: BP 156/61; PULSE 55; RESP 18; TEMP 36.6; O2SAT 91; BMI 43.8
--- NOTE | 2021-06-06 07:45 | ED.SOB ---
HPI - SOB/Dyspnea General Chief Complaint: Dyspnea Stated Complaint: weakness Time Seen by Provider: 06/06/21 07:44 Source: patient Mode of arrival: ambulatory Limitations: no limitations History of Present Illness MD elicited complaint: shortness of breath and cough Pertinent past history: congestive heart failure Onset (ago): week(s) (2) Context: other Timing: progressively worsening Severity: moderate Exacerbating factors: lying flat, exertion and movement Relieving factors: rest and upright position Known history of: congestive heart failure Associated symptoms: cough Treatment prior to arrival: diuretics Related Data Home Medications Medication Instructions Recorded Confirmed allopurinol 100 mg tablet 200 mg PO BEDTIME tab 07/25/20 06/06/21 xymsvuwvqm-dcdiqrgnahcww-mzhykojj 1 tab PO Q6H PRN 07/25/20 06/06/21 50 mg-325 mg-40 mg tablet cholecalciferol (vitamin D3) 25 25 mcg PO DAILY 07/25/20 06/06/21 mcg (1,000 unit) capsule multivitamin 1 tab PO DAILY 07/25/20 06/06/21 omega-3 fatty acids 1,000 mg 1,000 mg PO DAILY 07/25/20 06/06/21 capsule (Fish Oil Concentrate) losartan 50 mg tablet 50 mg PO DAILY 01/30/21 06/06/21 atorvastatin 20 mg tablet 20 mg PO DAILY 06/06/21 06/06/21 furosemide 20 mg tablet 40 mg PO DAILY 06/06/21 06/06/21 rivaroxaban 15 mg tablet (Xarelto) 15 mg PO DAILY@1700 06/06/21 06/06/21 Previous Rx's Medication Instructions Recorded propranolol 120 mg capsule,24 120 mg PO DAILY #30 cap 09/13/20 hr,extended release amiodarone 200 mg tablet 100 mg PO DAILY #45 tab 03/07/21 Allergies Allergy/AdvReac Type Severity Reaction Status Date / Time No Known Allergies Allergy Unverified 06/08/20 14:43 [No Known Allergies*] Review of Systems Review of Systems: Constitutional : No Fever, No Chills ENT/Mouth : No sore throat, No Rhinorrhea, No Swallowing Difficulty Eyes: No Eye Pain, No Swelling, No Redness Cardiovascular : No Chest Pain, positive SOB, pos Orthopnea, positive Edema Respiratory : pos Cough, No Sputum, No Wheezing, positive dyspnea Gastrointestinal : No Nausea, No Vomiting, No Diarrhea, No abdominal Pain, No Hematochezia, No Melena Genitourinary : No Dysuria, No Urinary Frequency, No Hematuria Musculoskeletal : No joint pain, No Myalgias Skin : No Skin Lesions, No rash Neuro : No Weakness, No Numbness, No Dizziness, No Headache Psych : No Anxiety/Panic, No Depression Heme/Lymph: No Bruising, No Lymphadenopathy Endocrine : No Polyuria, No Polydipsia All other systems reviewed and are negative PMFSH Past Medical History Attestation statement: The following information was validated with the patient. Medical History (HFpEF) heart failure with preserved ejection fraction Aortic stenosis CKD (chronic kidney disease) HTN (hypertension) Obesity Paroxysmal atrial fibrillation Surgical History History of surgery on wrist Family History Family History Father Cancer Mother Dementia Social History Social History Alcohol intake: never Patient Tobacco Use Status: Never used Tobacco Use of substances other than those prescribed or required for medical reasons: No Advance Directives: No Advance Directives Information Provided: No Physical Exam Vital Signs: Vital Signs: Last Vital Signs Temp 97.8 F 06/06/21 07:32 Pulse 46 L 06/06/21 09:58 Resp 16 06/06/21 09:58 BP 158/56 H 06/06/21 09:58 Pulse Ox 100 06/06/21 09:58 Body Mass Index 43.8 Appearance: Alert. Oriented X3. No acute distress. Eyes: Pupils equal, round and reactive to light. ENT: Pharynx normal. Neck: Normal inspection. Neck supple. CVS: Normal heart rate and rhythm. Pulses normal. Respiratory: No respiratory distress. Breath sounds rales to both bases - no wheezes noted Abdomen: Soft and nontender. Skin: Skin warm and dry. Normal skin color. Normal skin turgor. Extremities: 2+ pitting lower ext edema No calf ttp Neuro: Oriented X 3. No motor deficit. No sensory deficit. Course Course Course Narrative: will obtain CT chest to evaluate for pneumonia no pneumonia seen, trop negative, BNP slightly higher, COVID negative doubt PE given xarelto use IV lasix ordered will admit for CHF alert and oriented, refusing admission was seen by hospitalist, GCS 15 aware why we want him admitted but he won't stay MDM - SOB/Dyspnea MDM Narrative Medical decision making narrative: 75 yo male with CKD, HTN, PAF on xarelto, CHF, aortic stenosis comes in with c/o progressive 2 weeks LEWIS and orthopnea - has had cough as well. He is not vaccinated. At this time labs, CXR, EKG ordered suspect pneumonia vs CHF vs COVID. He is 91% on RA and not normally on O2 likely admission Lab Data Result diagrams: 06/06/21 08:15 06/06/21 08:15 Labs: Lab Results 06/06/21 06/06/21 06/06/21 Range/Units 07:59 08:15 08:15 WBC 10.9 H (4.8-10.8) X10*3/uL RBC 3.49 L (4.60-5.80) X10*6/uL Hgb 11.8 L (14.0-18.0) g/dl Hct 35.8 L (42-52) % MCV 102.6 H (80-98) fL MCH 33.8 H (27.0-33.0) pg MCHC 33.0 (31.0-36.0) g/dl RDW 15.0 (11.0-16.0) % Plt Count 255 (160-400) X10*3/uL MPV 10.2 (9.4-12.4) fL Immature Gran % (Auto) 0.7 H (0.0-0.4) % Neut % (Auto) 83.9 H (45-73) % Lymph % (Auto) 7.4 L (20-40) % Sherman % (Auto) 6.0 (2-11) % Eos % (Auto) 1.8 (0-4) % Baso % (Auto) 0.2 (0-2) % Lymph # (Auto) 0.8 L (1.2-4.9) X10*3/uL [place] # (Auto) 0.7 (0.1-1.2) X10*3/uL Eos # (Auto) 0.2 (0.0-0.4) X10*3/uL Baso # (Auto) 0.0 (0.0-0.2) X10*3/uL Abs Immat Gran (auto) 0.08 H (0.00-0.03) X10*3/uL Absolute Neuts (auto) 9.2 H (2.0-8.3) X10*3/uL Absolute Nucleated RBC 0.000 (0.0-0.012) X10*3/uL Nucleated RBC % (auto) 0.0 (0.0-0.2) /100WBC PT (9.9-13.0) SEC INR (0.9-1.1) APTT (24.1-38.0) SEC VBG pH (7.32-7.43) VBG pCO2 mmHg VBG pO2 mmHg VBG HCO3 (22-26) mmol/L VBG O2 Saturation % VBG Base Excess mmol/L Sodium (135-145) mmol/L Potassium (3.3-5.1) mmol/L Chloride (96-108) mmol/L Carbon Dioxide (22-29) mmol/L Anion Gap (12-20) BUN (9-16) mg/dL Creatinine (0.5-1.4) mg/dL Estim Creat Clear Calc Estimated GFR Random Glucose (60-115) mg/dL Lactic Acid (0.5-2.0) mmol/L Calcium (8.4-10.2) mg/dL Magnesium (1.6-2.6) mg/dL Total Bilirubin (0.0-1.0) mg/dL Direct Bilirubin (0.0-0.5) mg/dL AST (5-37) U/L ALT (0-40) U/L Alkaline Phosphatase (39-117) U/L Troponin I High Sens (<3.5-35.0) ng/L B-Natriuretic Peptide 298 H (<100) pg/mL Total Protein (6.5-8.0) g/dL Albumin (3.5-5.0) g/dL Lipase (8-78) U/L COVID-19 (LADY) Negative (Negative) COVID-19 Clin Com See Note 06/06/21 06/06/21 06/06/21 Range/Units 08:15 08:15 08:15 WBC (4.8-10.8) X10*3/uL RBC (4.60-5.80) X10*6/uL Hgb (14.0-18.0) g/dl Hct (42-52) % MCV (80-98) fL MCH (27.0-33.0) pg MCHC (31.0-36.0) g/dl RDW (11.0-16.0) % Plt Count (160-400) X10*3/uL MPV (9.4-12.4) fL Immature Gran % (Auto) (0.0-0.4) % Neut % (Auto) (45-73) % Lymph % (Auto) (20-40) % Sherman % (Auto) (2-11) % Eos % (Auto) (0-4) % Baso % (Auto) (0-2) % Lymph # (Auto) (1.2-4.9) X10*3/uL [place] # (Auto) (0.1-1.2) X10*3/uL Eos # (Auto) (0.0-0.4) X10*3/uL Baso # (Auto) (0.0-0.2) X10*3/uL Abs Immat Gran (auto) (0.00-0.03) X10*3/uL Absolute Neuts (auto) (2.0-8.3) X10*3/uL Absolute Nucleated RBC (0.0-0.012) X10*3/uL Nucleated RBC % (auto) (0.0-0.2) /100WBC PT 18.4 H (9.9-13.0) SEC INR 1.6 H (0.9-1.1) APTT 37.7 (24.1-38.0) SEC VBG pH (7.32-7.43) VBG pCO2 mmHg VBG pO2 mmHg VBG HCO3 (22-26) mmol/L VBG O2 Saturation % VBG Base Excess mmol/L Sodium 129 L (135-145) mmol/L Potassium 4.0 (3.3-5.1) mmol/L Chloride 88 L (96-108) mmol/L Carbon Dioxide 32 H (22-29) mmol/L Anion Gap 13 (12-20) BUN 26 H (9-16) mg/dL Creatinine 1.59 H (0.5-1.4) mg/dL Estim Creat Clear Calc 54.6 Estimated GFR 43 Random Glucose 191 H (60-115) mg/dL Lactic Acid 1.1 (0.5-2.0) mmol/L Calcium 9.3 (8.4-10.2) mg/dL Magnesium 2.3 (1.6-2.6) mg/dL Total Bilirubin 1.0 (0.0-1.0) mg/dL Direct Bilirubin 0.4 (0.0-0.5) mg/dL AST 22 (5-37) U/L ALT 16 (0-40) U/L Alkaline Phosphatase 117 (39-117) U/L Troponin I High Sens (<3.5-35.0) ng/L B-Natriuretic Peptide (<100) pg/mL Total Protein 7.6 (6.5-8.0) g/dL Albumin 4.1 (3.5-5.0) g/dL Lipase 33 (8-78) U/L COVID-19 (LADY) (Negative) COVID-19 Clin Com 06/06/21 06/06/21 Range/Units 08:15 08:23 WBC (4.8-10.8) X10*3/uL RBC (4.60-5.80) X10*6/uL Hgb (14.0-18.0) g/dl Hct (42-52) % MCV (80-98) fL MCH (27.0-33.0) pg MCHC (31.0-36.0) g/dl RDW (11.0-16.0) % Plt Count (160-400) X10*3/uL MPV (9.4-12.4) fL Immature Gran % (Auto) (0.0-0.4) % Neut % (Auto) (45-73) % Lymph % (Auto) (20-40) % Sherman % (Auto) (2-11) % Eos % (Auto) (0-4) % Baso % (Auto) (0-2) % Lymph # (Auto) (1.2-4.9) X10*3/uL [place] # (Auto) (0.1-1.2) X10*3/uL Eos # (Auto) (0.0-0.4) X10*3/uL Baso # (Auto) (0.0-0.2) X10*3/uL Abs Immat Gran (auto) (0.00-0.03) X10*3/uL Absolute Neuts (auto) (2.0-8.3) X10*3/uL Absolute Nucleated RBC (0.0-0.012) X10*3/uL Nucleated RBC % (auto) (0.0-0.2) /100WBC PT (9.9-13.0) SEC INR (0.9-1.1) APTT (24.1-38.0) SEC VBG pH 7.37 (7.32-7.43) VBG pCO2 67 mmHg VBG pO2 42 mmHg VBG HCO3 39 H (22-26) mmol/L VBG O2 Saturation 62.0 % VBG Base Excess 11.5 mmol/L Sodium (135-145) mmol/L Potassium (3.3-5.1) mmol/L Chloride (96-108) mmol/L Carbon Dioxide (22-29) mmol/L Anion Gap (12-20) BUN (9-16) mg/dL Creatinine (0.5-1.4) mg/dL Estim Creat Clear Calc Estimated GFR Random Glucose (60-115) mg/dL Lactic Acid (0.5-2.0) mmol/L Calcium (8.4-10.2) mg/dL Magnesium (1.6-2.6) mg/dL Total Bilirubin (0.0-1.0) mg/dL Direct Bilirubin (0.0-0.5) mg/dL AST (5-37) U/L ALT (0-40) U/L Alkaline Phosphatase (39-117) U/L Troponin I High Sens 5.2 (<3.5-35.0) ng/L B-Natriuretic Peptide (<100) pg/mL Total Protein (6.5-8.0) g/dL Albumin (3.5-5.0) g/dL Lipase (8-78) U/L COVID-19 (LADY) (Negative) COVID-19 Clin Com ECG Data Attestation: I personally reviewed and interpreted this ECG as follows: ECG interpretation date: 06/06/21 ECG interpretation time: 09:26 Interpretation: Rate: 56 Rhythm: afib [place]: left Normal QRS complex. ST T wave : normal no RICHMOND, artifact noted qTC: normal no RICHMOND prior studies: no acute ischemia The study has been interpreted contemporaneously by me. . Discharge Plan Discharge Clinical Impression: Acute hyponatremia, Acute dyspnea CHF (congestive heart failure) Qualifiers: Heart failure type: unspecified Heart failure chronicity: acute on chronic Qualified Code(s): I50.9 - Heart failure, unspecified Patient Disposition: Left Against Medical Advice Instructions: Heart Failure (ED), Dyspnea (ED), Against Medical Advice (ED) Additional Instructions: return to ED for any worsening symptoms or concerns you are welcome to return at any time we wanted you admitted for low oxygen and congestive heart failure Prescriptions: No Action propranolol 120 mg capsule,extended release 24 hr 120 mg PO DAILY Qty: 30 RF: 4 amiodarone 200 mg tablet 100 mg PO DAILY Qty: 45 RF: 3 atorvastatin 20 mg tablet 20 mg PO DAILY RF: 0 furosemide 20 mg tablet 40 mg PO DAILY RF: 0 Xarelto 15 mg tablet 15 mg PO DAILY@1700 RF: 0 axcimujpew-gwgilwenotovj-bial 50-325-40 mg tablet 1 tab PO Q6H PRN (Reason: Migraine Headache) RF: 0 omega-3 fatty acids [Fish Oil Concentrate] 1,000 mg capsule 1,000 mg PO DAILY RF: 0 multivitamin Tablet 1 tab PO DAILY RF: 0 cholecalciferol (vitamin D3) 25 mcg (1,000 unit) capsule 25 mcg PO DAILY RF: 0 allopurinol 100 mg tablet 200 mg PO BEDTIME RF: 0 losartan 50 mg tablet 50 mg PO DAILY RF: 0 Referrals: Brandi Mayes MD [Primary Care Provider] - 1 day
--- NOTE | 2021-06-06 07:46 | ECG_ITS ---
Test Reason : SOB Blood Pressure : / mmHG Vent. Rate : 056 BPM Atrial Rate : 234 BPM P-R Int : 000 ms QRS Dur : 110 ms QT Int : 484 ms P-R-T Axes : 000 -35 047 degrees QTc Int : 467 ms Atrial fibrillation with slow ventricular response with a competing junctional pacemaker Left axis deviation Minimal voltage criteria for LVH, may be normal variant Abnormal ECG When compared with ECG of 06-MAR-2021 06:00, Atrial fibrillation has replaced Sinus rhythm QRS duration has increased QT has lengthened Referred By: Ewa Bergman Electronically Signed By:DARON GAYTAN
[2021-06-06 08:21] LABS: COVID-19 Test Negative (Negative)
[2021-06-06 08:25] LABS: MANUAL DIFF FLAG NO
[2021-06-06 08:27] LABS: Venous Blood Gas Refer to POC result
[2021-06-06 08:28] LABS: VBG Base Excess 11.5 mmol/L; VBG HCO3 39 mmol/L (22-26); VBG pCO2 67 mmHg; VBG pH 7.37 (7.32-7.43); VBG pO2 42 mmHg
[2021-06-06 08:32] LABS: INTERNATIONAL NORM RATIO 1.6 (0.9-1.1); Prothrombin Time 18.4 SEC (9.9-13.0)
[2021-06-06 08:34] LABS: Partial Thromboplastin Time 37.7 SEC (24.1-38.0)
[2021-06-06 08:36] LABS: Basophils Percent Auto 0.2 % (0-2); Eosinophils Absolute Auto 0.2 X10*3/uL (0.0-0.4); Eosinophils Percent Auto 1.8 % (0-4); Hematocrit 35.8 % (42-52); Hemoglobin 11.8 g/dl (14.0-18.0); Imm Gran Abs Auto 0.08 X10*3/uL (0.00-0.03); Imm Gran Pct Auto 0.7 % (0.0-0.4); Lymphocytes Absolute Auto 0.8 X10*3/uL (1.2-4.9); Lymphocytes Percent Auto 7.4 % (20-40); Mean Corpuscular Hemoglobin 33.8 pg (27.0-33.0); Mean Corpuscular Volume 102.6 fL (80-98); Mean Platelet Volume 10.2 fL (9.4-12.4); Monocytes Absolute Auto 0.7 X10*3/uL (0.1-1.2); Neutrophils Absolute Auto 9.2 X10*3/uL (2.0-8.3); Neutrophils Percent Auto 83.9 % (45-73); Platelet Count 255 X10*3/uL (160-400); Red Blood Count 3.49 X10*6/uL (4.60-5.80); White Blood Count 10.9 X10*3/uL (4.8-10.8)
[2021-06-06 08:38] LABS: Lactic Acid 1.1 mmol/L (0.5-2.0)
--- NOTE | 2021-06-06 08:40 | PHA.MEDREC ---
Pharmacy Consult ? Medication Reconciliation Pharmacy has completed the medication reconciliation. Note, patient takes 40mg of lasix now. Thanks Vu
[2021-06-06 08:47] LABS: B Type Natriuretic Peptide 298 pg/mL (<100); Troponin-I High Sensitivity 5.2 ng/L (<3.5-35.0)
[2021-06-06 09:00] VITALS: PULSE 47; RESP 20; O2SAT 86
[2021-06-06 09:11] VITALS: O2SAT 95
[2021-06-06 09:12] LABS: Alanine Aminotransferase 16 U/L (0-40); Albumin Level 4.1 g/dL (3.5-5.0); Alkaline Phosphatase 117 U/L (39-117); Anion Gap 13 (12-20); Aspartate Amino Transferase 22 U/L (5-37); Bilirubin Direct 0.4 mg/dL (0.0-0.5); Blood Urea Nitrogen 26 mg/dL (9-16); Calcium 9.3 mg/dL (8.4-10.2); Carbon Dioxide 32 mmol/L (22-29); Chloride 88 mmol/L (96-108); Creatinine Clr Calc Pharmacy 54.6; Estimated Glomerular Filt Rate 43; Glucose Random 191 mg/dL (60-115); Lipase 33 U/L (8-78); Magnesium 2.3 mg/dL (1.6-2.6); Sodium 129 mmol/L (135-145); Total Protein 7.6 g/dL (6.5-8.0)
[2021-06-06 09:58] VITALS: BP 158/56; PULSE 46; RESP 16; O2SAT 100
[2021-06-06 11:01] VITALS: BP 151/70; PULSE 45; RESP 16; TEMP 36.4; O2SAT 97
[2021-06-06] MEDS: Furosemide 40 MG/4 ML VIAL IVPUSH (11:03)
--- NOTE | 2021-06-06 11:14 | PC.NURSE ---
Pt decided he is signing out AMA. Pt states he cant afford to stay for admission or further treatment. Pt given IV lasix. IV discontinued. Pt signed AMA form.
== END 2021-06-06 11:16 | disposition left against medical advice (07) ==
PROVIDERS: Emergency Provider Emergency Medicine; PCP Internal Medicine
DX: R06.00 Dyspnea, unspecified (principal); R06.02 Shortness of breath; E87.1 Hypo-osmolality and hyponatremia; I13.0 Hypertensive heart and chronic kidney disease with heart failure and stage 1 through stage 4 chronic kidney disease, or unspecified chronic kidney disease; N18.9 Chronic kidney disease, unspecified; I50.9 Heart failure, unspecified; Z20.822 Contact with and (suspected) exposure to COVID-19; R05 Cough; I48.0 Paroxysmal atrial fibrillation; R60.0 Localized edema; Z79.01 Long term (current) use of anticoagulants
CPT/HCPCS: 36415; 71045; 71250; 80048; 80076; 82803; 83605; 83690; 83735; 83880; 84484; 85025; 85610; 85730; 87040; 87635; 93005; 96374; 99285; J1940

== ENCOUNTER 2021-06-07 10:08 | Inpatient (IN) | payer MEDICARE, SELFPAY ==
[2021-06-07] VITALS (10 sets, daily range): BP systolic 105–159; BP diastolic 57–79; PULSE 42–89; RESP 15–20; TEMP 36.4–36.6; O2SAT 78–99; BMI 46.7
--- NOTE | ~2021-06-07 | XR_ITS ---
EXAMINATION: XR CHEST CLINICAL INFORMATION: Dyspnea COMPARISON: Chest radiographs 06/06/2021, 03/03/2021, CT chest noncontrast 06/06/2021 TECHNIQUE: Portable upright AP view of the chest was obtained. FINDINGS: There is some mild coarsening bronchiolar markings similar to prior radiograph. There is no interval lobar or segmental airspace consolidation or definite groundglass opacity. The costophrenic sulci are clear. The vascularity is normal. There is no pneumothorax or pleural reaction. Heart size normal. The hilar and mediastinal contours and visualized bony structures are unremarkable. XR/XR chest 1V IMPRESSION: Mild coarsening bronchiolar markings similar to prior exam.
--- NOTE | 2021-06-07 10:21 | ECG_ITS ---
Test Reason : DIFFICULTY BREATHING Blood Pressure : / mmHG Vent. Rate : 047 BPM Atrial Rate : 049 BPM P-R Int : 000 ms QRS Dur : 134 ms QT Int : 508 ms P-R-T Axes : 000 -32 055 degrees QTc Int : 449 ms Sinus bradycardia with 1st degree A-V block Left axis deviation Left ventricular hypertrophy with QRS widening Abnormal ECG When compared with ECG of 06-JUN-2021 09:22, Sinus bradycardia with 1st degree A-V block has replaced Atrial fibrillation Referred By: Ewa Bergman Electronically Signed By:DARON GAYTAN
--- NOTE | 2021-06-07 10:22 | ED_ITS ---
HPI - SOB/Dyspnea General Chief Complaint: Dyspnea Stated Complaint: CHF Time Seen by Provider: 06/07/21 10:20 Source: patient and old records reviewed Mode of arrival: ambulatory Limitations: no limitations History of Present Illness HPI Narrative: 75 yo male with hx of CHF, PAF on xarelto, aortic stenosis, CKD seen yesterday dx with CHF - was going to be admitted but left AMA comes back today c/o increased shortness of breath, he states he did void a lot yesterday after IV lasix in ED lost one pound but feels his breathing is still bad, CT chest yesterday no pneumonia, BNP 298, COVID negative MD elicited complaint: shortness of breath Pertinent past history: congestive heart failure Onset (ago): week(s) (2) Context: occurred during exertion Timing: progressively worsening Severity: moderate Exacerbating factors: lying flat, exertion and coughing Relieving factors: oxygen, rest and upright position Known history of: congestive heart failure Associated symptoms: cough Treatment prior to arrival: none Related Data Home Medications Medication Instructions Recorded Confirmed allopurinol 100 mg tablet 200 mg PO BEDTIME tab 07/25/20 06/07/21 nkweusclfd-rpmdqtsosiiqw-kkafxcru 1 tab PO Q6H PRN 07/25/20 06/07/21 50 mg-325 mg-40 mg tablet cholecalciferol (vitamin D3) 25 25 mcg PO DAILY 07/25/20 06/07/21 mcg (1,000 unit) capsule multivitamin 1 tab PO DAILY 07/25/20 06/07/21 omega-3 fatty acids 1,000 mg 1,000 mg PO DAILY 07/25/20 06/07/21 capsule (Fish Oil Concentrate) losartan 50 mg tablet 50 mg PO DAILY 01/30/21 06/07/21 atorvastatin 20 mg tablet 20 mg PO DAILY 06/06/21 06/07/21 furosemide 20 mg tablet 20 mg PO DAILY 06/06/21 06/07/21 rivaroxaban 15 mg tablet (Xarelto) 15 mg PO DAILY@1700 06/06/21 06/07/21 Previous Rx's Medication Instructions Recorded propranolol 120 mg capsule,24 120 mg PO DAILY #30 cap 09/13/20 hr,extended release amiodarone 200 mg tablet 100 mg PO DAILY #45 tab 03/07/21 Allergies Allergy/AdvReac Type Severity Reaction Status Date / Time No Known Allergies Allergy Verified 06/07/21 10:13 [No Known Allergies*] Review of Systems Review of Systems: Constitutional : No Fever, No Chills ENT/Mouth : No sore throat, No Rhinorrhea, No Swallowing Difficulty Eyes: No Eye Pain, No Swelling, No Redness Cardiovascular : No Chest Pain, positive SOB, pos Orthopnea, positive Edema Respiratory : pos Cough, No Sputum, No Wheezing, positive dyspnea Gastrointestinal : No Nausea, No Vomiting, No Diarrhea, No abdominal Pain, No Hematochezia, No Melena Genitourinary : No Dysuria, No Urinary Frequency, No Hematuria Musculoskeletal : No joint pain, No Myalgias Skin : No Skin Lesions, No rash Neuro : No Weakness, No Numbness, No Dizziness, No Headache Psych : No Anxiety/Panic, No Depression Heme/Lymph: No Bruising, No Lymphadenopathy Endocrine : No Polyuria, No Polydipsia All other systems reviewed and are negative PMFSH Past Medical History Attestation statement: The following information was validated with the patient. Medical History (HFpEF) heart failure with preserved ejection fraction Aortic stenosis CKD (chronic kidney disease) HTN (hypertension) Obesity Paroxysmal atrial fibrillation Surgical History History of surgery on wrist Family History Family History Father Cancer Mother Dementia Social History Social History Alcohol intake: never Patient Tobacco Use Status: Never used Tobacco Advance Directives: No Physical Exam Vital Signs: Vital Signs: Last Vital Signs Pulse 48 L 06/07/21 10:41 Resp 18 06/07/21 10:13 BP 137/64 06/07/21 10:13 Pulse Ox 78 L 06/07/21 10:13 Body Mass Index 46.7 Appearance: Alert. Oriented X3. No acute distress. RN in triage reports 78% on RA but portable machine and no pleth seen found to be 100% on NRB weaned down to NC and now 91% on 2L NC Eyes: Pupils equal, round and reactive to light. ENT: Pharynx normal. Neck: Normal inspection. Neck supple. CVS: bradycardic heart rate and rhythm. Pulses normal. Respiratory: No respiratory distress. Breath sounds diminished throughout rales at bases Abdomen: Soft and nontender. Skin: Skin warm and dry. Normal skin color. Normal skin turgor. Extremities: 2+ pitting lower extremity edema. No calf ttp Neuro: Oriented X 3. No motor deficit. No sensory deficit. Course Course Course Narrative: message sent to Dr. Kemp 1056am - sinus bradycardia with 1st degree AVB hold amio and propanolol MDM - SOB/Dyspnea MDM Narrative Medical decision making narrative: 75 yo male with hx of CHF, PAF on xarelto, aortic stenosis, CKD seen yesterday dx with CHF - was going to be admitted but left AMA comes back today c/o increased shortness of breath, he states he did void a lot yesterday after IV lasix in ED lost one pound but feels his breathing is still bad, CT chest yesterday no pneumonia, BNP 298, COVID negative. At this time will need repeat labs, neb treatment, CXR and admission. He is bradycardic more than usual and I am wondering if this is the cause of his symptoms - will need to see cardiology while admitted. He is on a amiodarone and propanolol - could be having pulmonary issues due to the amio as well. Lab Data Result diagrams: 06/07/21 10:40 06/07/21 10:40 Labs: Lab Results 06/07/21 06/07/21 06/07/21 Range/Units 10:33 10:40 10:40 WBC 9.3 (4.8-10.8) X10*3/uL RBC 3.33 L (4.60-5.80) X10*6/uL Hgb 11.5 L (14.0-18.0) g/dl Hct 34.4 L (42-52) % MCV 103.3 H (80-98) fL MCH 34.5 H (27.0-33.0) pg MCHC 33.4 (31.0-36.0) g/dl RDW 15.0 (11.0-16.0) % Plt Count 256 (160-400) X10*3/uL MPV 10.0 (9.4-12.4) fL Immature Gran % (Auto) 0.6 H (0.0-0.4) % Neut % (Auto) 77.1 H (45-73) % Lymph % (Auto) 11.5 L (20-40) % [place] % (Auto) 8.3 (2-11) % Eos % (Auto) 2.3 (0-4) % Baso % (Auto) 0.2 (0-2) % Lymph # (Auto) 1.1 L (1.2-4.9) X10*3/uL [place] # (Auto) 0.8 (0.1-1.2) X10*3/uL Eos # (Auto) 0.2 (0.0-0.4) X10*3/uL Baso # (Auto) 0.0 (0.0-0.2) X10*3/uL Abs Immat Gran (auto) 0.06 H (0.00-0.03) X10*3/uL Absolute Neuts (auto) 7.2 (2.0-8.3) X10*3/uL Absolute Nucleated RBC 0.000 (0.0-0.012) X10*3/uL Nucleated RBC % (auto) 0.0 (0.0-0.2) /100WBC PT 18.7 H (9.9-13.0) SEC INR 1.6 H (0.9-1.1) APTT 37.9 (24.1-38.0) SEC VBG pH 7.42 (7.32-7.43) VBG pCO2 65 mmHg VBG pO2 39 mmHg VBG HCO3 42 H (22-26) mmol/L VBG O2 Saturation 57.0 % VBG Base Excess 14.9 mmol/L COVID-19 (LADY) (Negative) COVID-19 Clin Com 06/07/21 Range/Units 10:40 WBC (4.8-10.8) X10*3/uL RBC (4.60-5.80) X10*6/uL Hgb (14.0-18.0) g/dl Hct (42-52) % MCV (80-98) fL MCH (27.0-33.0) pg MCHC (31.0-36.0) g/dl RDW (11.0-16.0) % Plt Count (160-400) X10*3/uL MPV (9.4-12.4) fL Immature Gran % (Auto) (0.0-0.4) % Neut % (Auto) (45-73) % Lymph % (Auto) (20-40) % [place] % (Auto) (2-11) % Eos % (Auto) (0-4) % Baso % (Auto) (0-2) % Lymph # (Auto) (1.2-4.9) X10*3/uL [place] # (Auto) (0.1-1.2) X10*3/uL Eos # (Auto) (0.0-0.4) X10*3/uL Baso # (Auto) (0.0-0.2) X10*3/uL Abs Immat Gran (auto) (0.00-0.03) X10*3/uL Absolute Neuts (auto) (2.0-8.3) X10*3/uL Absolute Nucleated RBC (0.0-0.012) X10*3/uL Nucleated RBC % (auto) (0.0-0.2) /100WBC PT (9.9-13.0) SEC INR (0.9-1.1) APTT (24.1-38.0) SEC VBG pH (7.32-7.43) VBG pCO2 mmHg VBG pO2 mmHg VBG HCO3 (22-26) mmol/L VBG O2 Saturation % VBG Base Excess mmol/L COVID-19 (LADY) Negative (Negative) COVID-19 Clin Com See Note ECG Data Attestation: I personally reviewed and interpreted this ECG as follows: ECG interpretation date: 06/07/21 ECG interpretation time: 10:51 Interpretation: Rate: 47 Rhythm: regular [place]: left , LVH wide QRS complex. poor R wave progression ST T wave : nonspecific, no [place] qTC: normal prior studies: changed from prior The study has been interpreted contemporaneously by me. . Discharge Plan Discharge Clinical Impression: Acute dyspnea, Bradycardia Patient Disposition: Admitted As Inpatient
[2021-06-07] MEDS: Albuterol Sulfate (0.083%) 2.5 MG/3 ML VIAL.NEB INHALE (10:41)
--- NOTE | 2021-06-07 10:46 | PHA.MEDREC ---
Pharmacy Consult ? Medication Reconciliation Pharmacy has completed the medication reconciliation. Anette Zuñiga, PharmD [phone]
[2021-06-07 10:47] LABS: MANUAL DIFF FLAG NO
[2021-06-07 10:55] LABS: Hematocrit 34.4 % (42-52); Hemoglobin 11.5 g/dl (14.0-18.0); Imm Gran Pct Auto 0.6 % (0.0-0.4); Mean Corpuscular HGB Conc 33.4 g/dl (31.0-36.0); Mean Corpuscular Hemoglobin 34.5 pg (27.0-33.0); Mean Corpuscular Volume 103.3 fL (80-98); Neutrophils Percent Auto 77.1 % (45-73); Platelet Count 256 X10*3/uL (160-400); Red Blood Count 3.33 X10*6/uL (4.60-5.80); White Blood Count 9.3 X10*3/uL (4.8-10.8)
[2021-06-07 10:56] LABS: Basophils Percent Auto 0.2 % (0-2); Eosinophils Absolute Auto 0.2 X10*3/uL (0.0-0.4); Eosinophils Percent Auto 2.3 % (0-4); Imm Gran Abs Auto 0.06 X10*3/uL (0.00-0.03); Lymphocytes Absolute Auto 1.1 X10*3/uL (1.2-4.9); Lymphocytes Percent Auto 11.5 % (20-40); Monocytes Absolute Auto 0.8 X10*3/uL (0.1-1.2); Monocytes Percent Auto 8.3 % (2-11); Neutrophils Absolute Auto 7.2 X10*3/uL (2.0-8.3)
[2021-06-07 11:00] LABS: VBG Base Excess 14.9 mmol/L; VBG HCO3 42 mmol/L (22-26); VBG pCO2 65 mmHg; VBG pH 7.42 (7.32-7.43); VBG pO2 39 mmHg
[2021-06-07 11:00] LABS: INTERNATIONAL NORM RATIO 1.6 (0.9-1.1); Prothrombin Time 18.7 SEC (9.9-13.0)
[2021-06-07 11:01] LABS: Venous Blood Gas Refer to POC result
[2021-06-07 11:02] LABS: Partial Thromboplastin Time 37.9 SEC (24.1-38.0)
[2021-06-07 11:03] LABS: COVID-19 Test Negative (Negative)
[2021-06-07 11:22] LABS: Alanine Aminotransferase 14 U/L (0-40); Albumin Level 3.9 g/dL (3.5-5.0); Alkaline Phosphatase 115 U/L (39-117); Anion Gap 10 (12-20); Aspartate Amino Transferase 23 U/L (5-37); B Type Natriuretic Peptide 288 pg/mL (<100); Bilirubin Direct 0.5 mg/dL (0.0-0.5); Bilirubin Total 1.1 mg/dL (0.0-1.0); Blood Urea Nitrogen 21 mg/dL (9-16); Calcium 9.2 mg/dL (8.4-10.2); Carbon Dioxide 38 mmol/L (22-29); Chloride 84 mmol/L (96-108); Creatinine Clr Calc Pharmacy 56.1; Estimated Glomerular Filt Rate 47; Glucose Random 157 mg/dL (60-115); Lipase 37 U/L (8-78); Magnesium 2.3 mg/dL (1.6-2.6); Potassium 4.3 mmol/L (3.3-5.1); Sodium 128 mmol/L (135-145); Total Protein 7.3 g/dL (6.5-8.0); Troponin-I High Sensitivity 7.6 ng/L (<3.5-35.0)
--- NOTE | 2021-06-07 12:47 | PM.IMHP ---
History of Present Illness Date of Service: 06/07/21 Chief Complaint: shortness of breath This is a 75-year-old male with a past medical history of paroxysmal AFib maintained in sinus with amiodarone and on anticoagulation with Xarelto, HFpEF, morbid obesity presents to the emergency room for the 2nd time in as many days with complaints of shortness of breath. Patient was seen in the ED on 06/06/2021 by me for admission for CHF exacerbation. However, at that time he refused inpatient admission and left against medical advice. He now returns less than 24 hours with persistent shortness of breath. He reports that his breathing has progressively worsened over several weeks. Upon further questioning he actually reports that his breathing has been ongoing for much longer. He reports being unable to sleep supine requiring a recliner to sleep. He reports weight gain. He reports that his dyspnea was initially with exertion but now even minimal activity has caused his symptoms. His workup in the emergency room revealed an elevated BNP as well as a chest x-ray suggestive of pulmonary/interstitial edema. His case was discussed by the ED provider with Cardiology who recommended holding his rate control drugs and they will be seeing him once hospitalized. Review of Systems Review of Systems: General - denies fevers or chills, denies weakness or fatigue HEENT -denies blurred vision, denies headache, denies sore throat Cardiovascular - denies cp, +orthopnea and + pnd, denies edema Respiratory - +sob, +bo Gastrointestinal - denies abdominal pain, nausea, vomiting, diarrhea - denies flank pain, denies dysuria, denies frequency or urgency Musculoskeletal - denies back pain, denies hip pain, denies knee pain, denies shoulder pain Neurological - denies any focal weakness or numbness Skin, denies any bruising or redness Psychiatric - denies any suicidal ideation, hallucinations, homicidal ideation Endocrinology - denies intolerance to hot / cold temperatures [facility] Medical History (HFpEF) heart failure with preserved ejection fraction Aortic stenosis CKD (chronic kidney disease) HTN (hypertension) Obesity Paroxysmal atrial fibrillation Family History Father Cancer Mother Dementia Surgical History History of surgery on wrist Social History Alcohol intake: never Patient Tobacco Use Status: Never used Tobacco Use of substances other than those prescribed or required for medical reasons: No Advance Directives: No Meds Allergies Allergy/AdvReac Type Severity Reaction Status Date / Time No Known Allergies Allergy Verified 06/07/21 10:13 [No Known Allergies*] Active Medications: Current Medications Generic Name Dose Route Start Last Admin Trade Name Freq PRN Reason Stop Dose Admin Acetaminophen 650 mg 06/07/21 12:31 Acetaminophen 325 Mg Tablet PO Q6H PRN Pain, Mild (Pain Scale 1-3) Allopurinol 200 mg 06/07/21 21:00 Allopurinol 100 Mg Tablet PO BEDTIME [facility] Atorvastatin Calcium 20 mg 06/08/21 09:00 Atorvastatin Calcium 20 Mg Tablet PO DAILY [facility] Furosemide 40 mg 06/07/21 18:00 Furosemide 40 Mg/4 Ml Vial IVPUSH BID@0900,1800 [facility] Protocol Losartan Potassium 50 mg 06/07/21 12:45 Losartan Potassium 50 Mg Tablet PO DAILY [facility] Protocol Multivitamins/Vitamin C 1 tab 06/08/21 09:00 Multivitamin Tablet PO DAILY [facility] Ondansetron HCl 4 mg 06/07/21 12:31 Ondansetron Hcl 4 Mg/2 Ml Vial IVPUSH Q8H PRN Nausea and Vomiting Pharmacy Consult 1 each 06/07/21 10:20 Consult Rx Perform Med Rec MISCELLANE ONCE PRN Consult order Rivaroxaban 15 mg 06/07/21 17:00 Rivaroxaban 15 Mg Tablet PO DAILY@1700 [facility] Sodium Chloride 3 ml 06/07/21 16:00 0.9 % Sodium Chloride Flush 3 Ml Syringe IVFLUSH QSHIFT [facility] Vitamin D 25 mcg 06/08/21 09:00 Cholecalciferol (Vitamin D3) 25 Mcg Tablet PO DAILY [facility] Home Medications Medication Instructions Recorded Confirmed Last Taken Type allopurinol 100 mg tablet 200 mg PO BEDTIME tab 07/25/20 06/07/21 06/05/21 History hcrepmsgjf-raafuuqksoujw-sppzzuic 1 tab PO Q6H PRN 07/25/20 06/07/21 Unknown History 50 mg-325 mg-40 mg tablet cholecalciferol (vitamin D3) 25 25 mcg PO DAILY 07/25/20 06/07/21 06/06/21 History mcg (1,000 unit) capsule multivitamin 1 tab PO DAILY 07/25/20 06/07/21 06/06/21 History omega-3 fatty acids 1,000 mg 1,000 mg PO DAILY 07/25/20 06/07/21 06/06/21 History capsule (Fish Oil Concentrate) losartan 50 mg tablet 50 mg PO DAILY 01/30/21 06/07/21 06/06/21 History atorvastatin 20 mg tablet 20 mg PO DAILY 06/06/21 06/07/21 06/06/21 History furosemide 20 mg tablet 20 mg PO DAILY 06/06/21 06/07/21 06/05/21 History rivaroxaban 15 mg tablet (Xarelto) 15 mg PO DAILY@1700 06/06/21 06/07/21 06/05/21 History Physical Exam Vital Signs and Narrative: Vital Signs: Last Vital Signs Temp 98 F 06/07/21 12:06 Pulse 45 L 06/07/21 12:06 Resp 15 06/07/21 12:06 BP 159/69 H 06/07/21 12:06 Pulse Ox 99 06/07/21 12:06 Body Mass Index 46.7 Const: Other: Constitutional - Awake and Alert, No apparent distress Eyes - PERRLA, EOMI Cardiovascular - S1S2, RRR, No edema, +JVD Respiratory - clear compared to yesterday Gastrointestinal - NT / ND; +BS; No rebound or guarding - No CVA tenderness Extremities - no calf tenderness bilaterally, no swelling Musculoskeletal - Normal inspection, normal ROM Skin - Cool extremities Neurological - Alert & oriented x3, No focal deficit Psychological - Appropriate affect Results Labs CBC and Chem 7: 06/07/21 10:40 06/07/21 10:40 Labs: Laboratory Results - last 24 hr 06/07/21 06/07/21 06/07/21 10:33 10:40 10:40 MCV 103.3 H MCH 34.5 H MCHC 33.4 RDW 15.0 Plt Count 256 MPV 10.0 Immature Gran % (Auto) 0.6 H Neut % (Auto) 77.1 H Lymph % (Auto) 11.5 L [place] % (Auto) 8.3 Eos % (Auto) 2.3 Baso % (Auto) 0.2 Lymph # (Auto) 1.1 L [place] # (Auto) 0.8 Eos # (Auto) 0.2 Baso # (Auto) 0.0 Abs Immat Gran (auto) 0.06 H Absolute Neuts (auto) 7.2 Absolute Nucleated RBC 0.000 Nucleated RBC % (auto) 0.0 PT INR APTT VBG pH 7.42 VBG pCO2 65 VBG pO2 39 VBG HCO3 42 H VBG O2 Saturation 57.0 VBG Base Excess 14.9 Anion Gap 10 L Estim Creat Clear Calc 56.1 Estimated GFR 47 Random Glucose 157 H Lactic Acid Calcium 9.2 Magnesium Total Bilirubin Direct Bilirubin AST ALT Alkaline Phosphatase Troponin I High Sens B-Natriuretic Peptide Total Protein Albumin Lipase COVID-19 (LADY) COVIDIceberg 06/07/21 06/07/21 06/07/21 10:40 10:40 10:40 MCV MCH MCHC RDW Plt Count MPV Immature Gran % (Auto) Neut % (Auto) Lymph % (Auto) [place] % (Auto) Eos % (Auto) Baso % (Auto) Lymph # (Auto) [place] # (Auto) Eos # (Auto) Baso # (Auto) Abs Immat Gran (auto) Absolute Neuts (auto) Absolute Nucleated RBC Nucleated RBC % (auto) PT 18.7 H INR 1.6 H APTT 37.9 VBG pH VBG pCO2 VBG pO2 VBG HCO3 VBG O2 Saturation VBG Base Excess Anion Gap Estim Creat Clear Calc Estimated GFR Random Glucose Lactic Acid Calcium Magnesium 2.3 Total Bilirubin 1.1 H Direct Bilirubin 0.5 AST 23 ALT 14 Alkaline Phosphatase 115 Troponin I High Sens B-Natriuretic Peptide 288 H Total Protein 7.3 Albumin 3.9 Lipase 37 COVID-19 (LADY) COVID-[employer] 06/07/21 06/07/21 06/07/21 10:40 10:40 10:40 MCV MCH MCHC RDW Plt Count MPV Immature Gran % (Auto) Neut % (Auto) Lymph % (Auto) [place] % (Auto) Eos % (Auto) Baso % (Auto) Lymph # (Auto) [place] # (Auto) Eos # (Auto) Baso # (Auto) Abs Immat Gran (auto) Absolute Neuts (auto) Absolute Nucleated RBC Nucleated RBC % (auto) PT INR APTT VBG pH VBG pCO2 VBG pO2 VBG HCO3 VBG O2 Saturation VBG Base Excess Anion Gap Estim Creat Clear Calc Estimated GFR Random Glucose Lactic Acid 1.0 Calcium Magnesium Total Bilirubin Direct Bilirubin AST ALT Alkaline Phosphatase Troponin I High Sens 7.6 B-Natriuretic Peptide Total Protein Albumin Lipase COVID-19 (LADY) Negative COVID-19 Clin Com See Note ECG Attestation: I personally reviewed and interpreted this ECG as follows: (Sinus bradycardia, no blocks appreciated) ECG interpretation date: 06/07/21 ECG interpretation time: 12:59 Imaging Radiologist's Impressions: Impressions Chest X-Ray 06/07/21 10:21 IMPRESSION: Mild coarsening bronchiolar markings similar to prior exam. Assessment and Plan (1) Acute on chronic diastolic (congestive) heart failure: Status: Acute (2) HTN (hypertension): Status: Acute This is a 75 yo M with PMH of PAF on amio+xarelto, HFpEF on lasix 20mg daily, morbid obesity who presents to the hospital less than 24 hours after leaving AMA. He reports progressive shortness of breath on gonig for months but acutely worsened. His presentation is worrisome of acute CHF and bradycardia. He will be admitted for further work up. 1. Progressive shortness of breath multifactorial -- CHF (see details below) vs ? amio toxicity vs primary pulmonary issue 2. Acute on chronic HFpEF IV lasix -- on 20mg at home, will give 40mg BID I/O daily weight recent echo in January 2021 -- will repeat if recommended by cardiology Cardiology consult 3. Sinus bradycardia Hold amio and propanolol 4. PAF Xarelto hold amio + rate control drugs 5. Morbid obesity weight loss and diet encouraged likely contributing to his respiratory symptoms 6. CKD stage 3 SCr at baseline, monitor Full Code DVT pptx, [employer] Endorses his at [facility] Quality Stroke Does the patient have a stroke diagnosis?: No VTE Prior VTE?: No VTE Risk Level:: Medical - moderate - high VTE Device Contraindication: Treatment Not Indicated VTE Drug Contraindication: N/A - Med Ordered
[2021-06-07] MEDS: Losartan Potassium 50 MG TABLET PO (14:30)
--- NOTE | 2021-06-07 14:51 | PC.NURSE ---
patient medicated per order, dinner order taken, pt remains a&ox3, watching tv, compliance monitor sinus bettye, pt awaiting bed on floor, will continue to monitor.
[2021-06-07] MEDS: Rivaroxaban 15 MG TABLET PO (17:15)
[2021-06-07] MEDS: 0.9 % Sodium Chloride Flush 3 ML SYRINGE IVFLUSH (17:16)
[2021-06-07] MEDS: Furosemide 40 MG/4 ML VIAL IVPUSH (17:16)
--- NOTE | 2021-06-07 17:22 | PC.NURSE ---
patient a&ox3, hypo dipper sinus bettye, pt had no c/o pain or discomfort, pt medicated per order, and awaiting dinner as well as bed placement, will continue to monitor.
[2021-06-07] MEDS: allopurinoL 100 MG TABLET 200 MG PO (22:28)
--- NOTE | 2021-06-07 23:53 | PC.NURSE ---
Per reshma Pratt to set vehicle monitor technician limit to HR low of 40 so monitor does not persistently alarm 2/2 pt's asx SB baseline.
--- NOTE | 2021-06-07 23:59 | PC.NURSE ---
Pt resting with eyes closed in recliner, sitting upright. Per ANDREA Sahu pt had been SB all day (as charted, as well) and pt has remained asx. Pt currently SB on monitor at 41, O2 sat and RR stable.
[2021-06-08] VITALS (36 sets, daily range): BP systolic 67–139; BP diastolic 22–81; PULSE 41–115; RESP 13–20; TEMP 36.1–37.2; O2SAT 92–99; BMI 48.1
--- NOTE | 2021-06-08 | ECG_ITS ---
Test Reason : HYPOTENSION Blood Pressure : / mmHG Vent. Rate : 049 BPM Atrial Rate : 053 BPM P-R Int : 000 ms QRS Dur : 106 ms QT Int : 476 ms P-R-T Axes : 000 -41 043 degrees QTc Int : 429 ms Atrial fibrillation with slow ventricular response with a competing junctional pacemaker Left axis deviation Abnormal ECG When compared with ECG of 07-JUN-2021 10:46, Atrial fibrillation has replaced Sinus rhythm Referred By: Armani Gonzales Electronically Signed By:DARON GAYTAN
--- NOTE | 2021-06-08 00:22 | PC.NURSE ---
Pt heard coughing by this RN outside of room. This RN to bedside, pt found awake resting in recliner. Pt aaox4, mentating appropriately, denies pain/discomfort. Pt denies lightheadedness, dizziness, weakness, CP, SOB/ABILIO, abd pain, n/v/d, urinary sx. Pt VS assessed, pt found to be hypotensive at 97/43, Dr Gonzales made aware.
--- NOTE | 2021-06-08 00:45 | PC.NURSE ---
Dr Gonzales requested this RN to assess manual BP. This RN to bedside, assessed manual BP which was 97/48 and reported to Janet. Per SHA Gonzales. Provider held losartan.
--- NOTE | 2021-06-08 01:13 | PC.NURSE ---
Pt asleep in recliner, BP cycled automatically, is 89/33. Dr Gonzales made aware. This RN to wake pt, obtain a manual BP and report back to Janet.
--- NOTE | 2021-06-08 01:29 | PC.NURSE ---
This RN to bedside to perform manual BP which is 82/42. This RN notes that on bedside cardiac monitor technician, pt's BP reads 59/20. This RN notified Dr Gonzales of pt's BP. Plan for 250cc bolus.
[2021-06-08] MEDS: 0.9 % Sodium Chloride 500 ML 250 ML IV (01:39)
--- NOTE | 2021-06-08 01:39 | PC.NURSE ---
Per Dr Gonzales, pt to only receive 250cc, not the 500cc as ordered. Per Janet, he is unable to order 250cc bolus in computer but get telephone order to this RN that pt is only receive 250cc NS.
[2021-06-08 01:56] LABS: MANUAL DIFF FLAG NO
[2021-06-08 01:57] LABS: Basophils Percent Auto 0.3 % (0-2); Eosinophils Absolute Auto 0.3 X10*3/uL (0.0-0.4); Eosinophils Percent Auto 2.7 % (0-4); Hemoglobin 11.6 g/dl (14.0-18.0); Imm Gran Pct Auto 0.9 % (0.0-0.4); Lymphocytes Absolute Auto 1.5 X10*3/uL (1.2-4.9); Lymphocytes Percent Auto 13.7 % (20-40); Mean Corpuscular HGB Conc 33.1 g/dl (31.0-36.0); Mean Corpuscular Hemoglobin 34.4 pg (27.0-33.0); Mean Corpuscular Volume 103.9 fL (80-98); Monocytes Absolute Auto 1.2 X10*3/uL (0.1-1.2); Monocytes Percent Auto 10.8 % (2-11); Neutrophils Absolute Auto 7.7 X10*3/uL (2.0-8.3); Neutrophils Percent Auto 71.6 % (45-73); Platelet Count 253 X10*3/uL (160-400); Red Blood Count 3.37 X10*6/uL (4.60-5.80); Red Cell Distribution Width 14.9 % (11.0-16.0); White Blood Count 10.8 X10*3/uL (4.8-10.8)
[2021-06-08 02:09] LABS: Appearance Urine CLEAR; Color Urine YELLOW; Glucose Urine UA NEG (NEG); Leukocyte Esterase Urine NEG (NEG); Nitrite Urine NEG (NEG); Specific Gravity - Urine 1.015 (1.005-1.025); UACC Culture Trigger NO; Urine Blood NEG (NEG); Urine Ketones NEG (NEG); Urine Protein 1+ MG/DL (NEG-TRACE)
[2021-06-08 02:13] LABS: Anion Gap 16 (12-20); Blood Urea Nitrogen 26 mg/dL (9-16); Calcium 9.2 mg/dL (8.4-10.2); Carbon Dioxide 33 mmol/L (22-29); Chloride 85 mmol/L (96-108); Creatinine Clr Calc Pharmacy 44.8; Estimated Glomerular Filt Rate 36; Glucose Random 99 mg/dL (60-115); Potassium 4.3 mmol/L (3.3-5.1); Sodium 130 mmol/L (135-145)
[2021-06-08 02:16] LABS: Troponin-I High Sensitivity 10.4 ng/L (<3.5-35.0)
[2021-06-08 02:17] LABS: Bacteria Urine 1+ /LPF; Mucus Urine 1+ /LPF; Squamous Epithelial Cell Urine 1+ /LPF
--- NOTE | 2021-06-08 02:19 | PC.NURSE ---
DP pulses identified by doppler on both feet and marked with marker. Pt reports R hand tingling like when you fall asleep on it x a few months. Pt with +CMS to R hand. Dr Gonzales made aware.
--- NOTE | 2021-06-08 02:35 | PC.NURSE ---
Pt with nonproductive, very shallow cough. Pt with expiratory wheezes to L base, diminished R base. Devineni aware
[2021-06-08 02:40] LABS: D Dimer < 200 NG/ML
--- NOTE | 2021-06-08 02:40 | PM.EVENT ---
Event Note Date of Service: 06/08/21 Event Note: Hypotension: Patient has an episode hypotension blood pressure dropped to 82/42; patient was given 250 cc of IV fluids. Patient denied any lightheadedness or dizziness. The follow-up blood pressure improved to 106/68. Held patient's home losartan and Lasix. orthostatices negative. BP drops while pt sleeps; BP improving upon awakening; Pending random cortisol levels; given Stress dose Steroids x1. CHF: Judicious diuresis per blood pressure. Cough with sputum production: CT scan shows mild interstitial lung disease. DuoNebs p.r.n.. Doxycycline for now. Bradycardia: Patient is off propranolol per admitting team. Hypoxia: Multifactorial in the setting interstitial lung disease versus CHF; patient reports he feels much better on supplemental oxygen. Not in respiratory distress. Patient is on Xarelto. negative D-dimer. Cold b/l LE: No skin discoloration noted. Capillary refill is decent. Difficult to palpate pulses secondary to peripheral edema. Peripheral pulses are well appreciated via Doppler. Will defer to the a.m. team for further follow-up.
--- NOTE | 2021-06-08 02:48 | PC.NURSE ---
This RN called RT to notify of duoneb PRN order and need for administration of med now.
[2021-06-08] MEDS: Albuterol/Iprat 2.5/0.5MG 3 ML AMPUL.NEB INHALE ×3 (02:57→17:03)
[2021-06-08] MEDS: Doxycycline Hyclate 100 MG in 0.9 % Sodium Chloride 250 ML 166.67 MG IV ×2 (03:05→15:43)
--- NOTE | 2021-06-08 04:05 | PC.NURSE ---
Dr Gonzales made aware of pt's automated BP as well as BUE manual BPs. Per Dr Gonzales, ok, we'll watch him
[2021-06-08] MEDS: Hydrocortisone Sod Succ/PF 100 MG VIAL 50 MG IVPUSH (05:05)
[2021-06-08] MEDS: 0.9 % Sodium Chloride 500 ML IV (05:07)
[2021-06-08 05:10] LABS: Hematocrit 34.8 % (42-52); Hemoglobin 11.4 g/dl (14.0-18.0); Mean Corpuscular HGB Conc 32.8 g/dl (31.0-36.0); Mean Corpuscular Hemoglobin 34.1 pg (27.0-33.0); Mean Corpuscular Volume 104.2 fL (80-98); Mean Platelet Volume 9.9 fL (9.4-12.4); Platelet Count 218 X10*3/uL (160-400); Red Blood Count 3.34 X10*6/uL (4.60-5.80); Red Cell Distribution Width 14.9 % (11.0-16.0); White Blood Count 9.6 X10*3/uL (4.8-10.8)
[2021-06-08 05:20] LABS: Lactic Acid 0.7 mmol/L (0.5-2.0)
--- NOTE | 2021-06-08 05:28 | PC.NURSE ---
At 0445, pt's automated LUE BP alarmed at 67/27, HR 42 while pt asleep. This RN performed manual RUE BP 68/24 while pt asleep. Pt's stretcher placed into trendelenburg, RUE manual asleep BP 74/32. Dr Gonzales made aware. This RN then woke pt, LUE BP auto 108/45. RUE BP manual 104/50. Dr Gonzales made aware. Dr Gonzales ordered labs, this RN obtained and sent for processing. Dr Gonzales ordered 250cc bolus, again states he's unable to order bolus as such, gave t/o to this RN to only give 250cc to pt not the entire 500cc. Dr Gonzales also ordered solu-cortef, given per NOV, after labs were drawn. Dr Gonzales requested orthostatic vitals. Orthos performed, pt negative for orthostatic hypotension. Provider made aware Awaiting lab results at this time.
[2021-06-08 05:32] LABS: Anion Gap 12 (12-20); Blood Urea Nitrogen 25 mg/dL (9-16); Calcium 8.7 mg/dL (8.4-10.2); Carbon Dioxide 34 mmol/L (22-29); Chloride 88 mmol/L (96-108); Creatinine Clr Calc Pharmacy 48.2; Estimated Glomerular Filt Rate 39; Glucose Random 99 mg/dL (60-115); Potassium 4.2 mmol/L (3.3-5.1); Sodium 130 mmol/L (135-145)
[2021-06-08] MEDS: 0.9 % Sodium Chloride 500 ML 50 ML IV (06:53)
--- NOTE | 2021-06-08 07:25 | PC.NURSE ---
This RN asks Dr Gonzales what plan is for pt as pt's BP appears to drop when pt is asleep but rises when pt is awake. Dr Gonzales states we need to figure out what's going on. we usually see this with heart rate. first he needs echo. I'm questing any adrenal issue. Spoke to day doc. It's going to take a little time to figure out. First things firsst he may be volume depleted from meds yesterday. Plan to continue fluids, maintenance 50cc/hr. Thorough bedside report given to ANDREA Wilson. tSeve aware of plan for admission and continuing to monitor BP
--- NOTE | 2021-06-08 08:13 | PC.NURSE ---
pt alert and oriented. blood pressure 99/43 on the monitor while awake. pt denies dizziness/headache/sob/chest pain. dry, non-productive cough noted. pt ate breakfast. awaiting bed assignment, will continue to monitor.
[2021-06-08] MEDS: Cholecalciferol (Vitamin D3) 25 MCG TABLET PO (08:44)
[2021-06-08] MEDS: Atorvastatin Calcium 20 MG TABLET PO (08:44)
[2021-06-08] MEDS: Multivitamin TABLET 1 TAB PO (08:44)
--- NOTE | 2021-06-08 08:48 | PC.NURSE ---
pt's b/p continues to fluctuate when awake and when asleep. Pt fell asleep just now - b/p on monitor 94/32, similar b/p manually. pt asymptomatic, no complaints. Dr. Montoya aware. continue with plan of care to wake pt up if he falls asleep. fluids still infusing, will continue to monitor.
--- NOTE | 2021-06-08 09:32 | MHC.CM.PN ---
Attempted to meet with patient in regards to discharge planning. Patient is currently sleeping. Spoke with patient's , Alexandria, via telephone at [phone]. Patient lives with , ambulates with a crutch and walking stick and had no services prior to coming to the hospital PCP verified. Copy of HCP verified to be on file. IMM explained and left bedside. Patient has not received any Covid vaccines. Patient's son will transport patient home when medically stable. Continue to monitor for d/c needs.
--- NOTE | 2021-06-08 10:15 | PC.NURSE ---
Dr. Kemp at bedside, he was made aware by this commercial loan underwriter about pt's b/p fluctuating when sleeping and when awake. Pt continues to be asymptomatic. This commercial loan underwriter will continue to monitor pt.
--- NOTE | 2021-06-08 10:31 | PM.CNCAR ---
History of Present Illness History of Present Illness Date of Service: 06/08/21 Requesting physician: Bello Montoya Chief complaint: shortness of breath Narrative: 75-year-old gentleman who is presenting with shortness of breath and bradycardia. He has background history of mild aortic valve stenosis, heart failure with preserved ejection fraction, paroxysmal atrial fibrillation for which he has been on amiodarone, chronic kidney disease, and chronic bradycardia. He said he was feeling short of breath for many weeks and after workup he was being referred to pulmonology for further assessment. He is denying any orthopnea or PND but gets short of breath many walks short distances. With these symptoms he came on June 06 but left AMA. A CT scan at that time showed disease. Now he is presenting again with shortness of breath. Chest x-ray showing interstitial changes but no clear congestive heart failure. He also was hypotensive and required IV fluid bolus to improve his blood pressure. He has sinus bradycardia on the EKG. Due to his interstitial changes amiodarone was held. [facility] Past Medical History Medical History (HFpEF) heart failure with preserved ejection fraction Aortic stenosis CKD (chronic kidney disease) HTN (hypertension) Obesity Paroxysmal atrial fibrillation Family History Family History Father Cancer Mother Dementia Surgical History Surgical History History of surgery on wrist Social History Social History Alcohol intake: never Patient Tobacco Use Status: Never used Tobacco Use of substances other than those prescribed or required for medical reasons: No Advance Directives: No service: No Current occupational status: retired [employer] Allergies Allergy/AdvReac Type Severity Reaction Status Date / Time No Known Allergies Allergy Verified 06/07/21 10:13 [No Known Allergies*] Active Medications: Current Medications Acetaminophen (Acetaminophen 325 Mg Tablet) 650 mg PO Q6H PRN PRN Reason: Pain, Mild (Pain Scale 1-3) Albuterol/Ipratropium (Albuterol/Iprat 2.5/0.5mg 3 Ml Ampul.Neb) 3 ml INHALE RQ4H PRN PRN Reason: Shortness of Breath/Wheezing Last Admin: 06/08/21 02:57 Dose: 3 ml Documented by: Allopurinol (Allopurinol 100 Mg Tablet) 200 mg PO BEDTIME [facility] Last Admin: 06/07/21 22:28 Dose: 200 mg Documented by: Atorvastatin Calcium (Atorvastatin Calcium 20 Mg Tablet) 20 mg PO DAILY [facility] Last Admin: 06/08/21 08:44 Dose: 20 mg Documented by: Furosemide (Furosemide 40 Mg/4 Ml Vial) 40 mg IVPUSH BID@0900,1800 [facility]; Protocol Last Admin: 06/08/21 10:16 Dose: Not Given Documented by: Doxycycline Hyclate 100 mg/ (Sodium Chloride) 250 mls @ 166.67 mls/hr IV Q12H [facility] Last Infusion: 06/08/21 04:35 Dose: Infused Documented by: Sodium Chloride (Ns) 500 mls @ 50 mls/hr IV .Q10H [facility] Stop: 06/08/21 16:44 Last Admin: 06/08/21 06:53 Dose: 50 mls/hr Documented by: Losartan Potassium (Losartan Potassium 50 Mg Tablet) 50 mg PO DAILY [facility]; Protocol Last Admin: 06/07/21 14:30 Dose: 50 mg Documented by: Multivitamins/Vitamin C (Multivitamin Tablet) 1 tab PO DAILY [facility] Last Admin: 06/08/21 08:44 Dose: 1 tab Documented by: Ondansetron HCl (Ondansetron Hcl 4 Mg/2 Ml Vial) 4 mg IVPUSH Q8H PRN PRN Reason: Nausea and Vomiting Pharmacy Consult (Consult Rx Perform Med Rec) 1 each MISCELLANE ONCE PRN PRN Reason: Consult order Rivaroxaban (Rivaroxaban 15 Mg Tablet) 15 mg PO DAILY@1700 [facility] Last Admin: 06/07/21 17:15 Dose: 15 mg Documented by: Sodium Chloride (0.9 % Sodium Chloride Flush 3 Ml Syringe) 3 ml IVFLUSH QSHIFT [facility] Last Admin: 06/08/21 08:46 Dose: Not Given Documented by: Vitamin D (Cholecalciferol (Vitamin D3) 25 Mcg Tablet) 25 mcg PO DAILY [facility] Last Admin: 06/08/21 08:44 Dose: 25 mcg Documented by: Home Medications Medication Instructions Recorded Confirmed Last Taken Type allopurinol 100 mg tablet 200 mg PO BEDTIME tab 07/25/20 06/07/21 06/05/21 History [id number]-[id number] 1 tab PO Q6H PRN 07/25/20 06/07/21 Unknown History 50 mg-325 mg-40 mg tablet cholecalciferol (vitamin D3) 25 25 mcg PO DAILY 07/25/20 06/07/21 06/06/21 History mcg (1,000 unit) capsule multivitamin 1 tab PO DAILY 07/25/20 06/07/21 06/06/21 History omega-3 fatty acids 1,000 mg 1,000 mg PO DAILY 07/25/20 06/07/21 06/06/21 History capsule (Fish Oil Concentrate) losartan 50 mg tablet 50 mg PO DAILY 01/30/21 06/07/21 06/06/21 History atorvastatin 20 mg tablet 20 mg PO DAILY 06/06/21 06/07/21 06/06/21 History furosemide 20 mg tablet 20 mg PO DAILY 06/06/21 06/07/21 06/05/21 History rivaroxaban 15 mg tablet (Xarelto) 15 mg PO DAILY@1700 06/06/21 06/07/21 06/05/21 History Physical Exam Vital Signs: Vital Signs: Last Vital Signs Temp 97.2 F 06/08/21 06:54 Pulse 47 L 06/08/21 09:48 Resp 18 06/08/21 09:45 BP 104/46 L 06/08/21 09:48 Pulse Ox 96 06/08/21 09:34 Body Mass Index 46.7 GENERAL APPEARANCE: in no acute distress, pleasant. NECK: no carotid bruit, no jugular venous distention. SKIN: no suspicious lesions, warm and dry. HEART: Bradycardic. LUNGS: clear to auscultation bilaterally. ABDOMEN: soft, nontender. EXTREMITIES: no edema. PERIPHERAL PULSES: equal. NEUROLOGIC: No gross deficits, AAO X 3 Results Labs and Meds Result diagrams: 06/08/21 05:03 06/08/21 05:03 Lab results: Laboratory Results - last 24 hr 06/07/21 06/07/21 06/07/21 10:33 10:40 10:40 WBC 9.3 RBC 3.33 L Hgb 11.5 L Hct 34.4 L MCV 103.3 H MCH 34.5 H MCHC 33.4 RDW 15.0 Plt Count 256 MPV 10.0 Immature Gran % (Auto) 0.6 H Neut % (Auto) 77.1 H Lymph % (Auto) 11.5 L [place] % (Auto) 8.3 Eos % (Auto) 2.3 Baso % (Auto) 0.2 Lymph # (Auto) 1.1 L [place] # (Auto) 0.8 Eos # (Auto) 0.2 Baso # (Auto) 0.0 Abs Immat Gran (auto) 0.06 H Absolute Neuts (auto) 7.2 Absolute Nucleated RBC 0.000 Nucleated RBC % (auto) 0.0 PT INR APTT D-Dimer VBG pH 7.42 VBG pCO2 65 VBG pO2 39 VBG HCO3 42 H VBG O2 Saturation 57.0 VBG Base Excess 14.9 Sodium 128 L Potassium 4.3 Chloride 84 L Carbon Dioxide 38 H Anion Gap 10 L BUN 21 H Creatinine 1.46 H Estim Creat Clear Calc 56.1 Estimated GFR 47 Random Glucose 157 H Lactic Acid Calcium 9.2 Magnesium Total Bilirubin Direct Bilirubin AST ALT Alkaline Phosphatase Troponin I High Sens B-Natriuretic Peptide Total Protein Albumin Lipase Urine Color Urine Appearance Urine pH Ur Specific [place] Urine Protein Urine Glucose (UA) Urine Ketones Urine Blood Urine Nitrite Ur Leukocyte Esterase Urine RBC Urine WBC Ur Squamous Epith Cells Urine Bacteria Hyaline Casts Urine Mucus COVID-19 ([facility]ADY) COVID-19 Clin Com 06/07/21 06/07/21 06/07/21 10:40 10:40 10:40 WBC RBC Hgb Hct MCV MCH MCHC RDW Plt Count MPV Immature Gran % (Auto) Neut % (Auto) Lymph % (Auto) [place] % (Auto) Eos % (Auto) Baso % (Auto) Lymph # (Auto) [place] # (Auto) Eos # (Auto) Baso # (Auto) Abs Immat Gran (auto) Absolute Neuts (auto) Absolute Nucleated RBC Nucleated RBC % (auto) PT 18.7 H INR 1.6 H APTT 37.9 D-Dimer VBG pH VBG pCO2 VBG pO2 VBG HCO3 VBG O2 Saturation VBG Base Excess Sodium Potassium Chloride Carbon Dioxide Anion Gap BUN Creatinine Estim Creat Clear Calc Estimated GFR Random Glucose Lactic Acid Calcium Magnesium 2.3 Total Bilirubin 1.1 H Direct Bilirubin 0.5 AST 23 ALT 14 Alkaline Phosphatase 115 Troponin I High Sens B-Natriuretic Peptide 288 H Total Protein 7.3 Albumin 3.9 Lipase 37 Urine Color Urine Appearance Urine pH Ur Specific [place] Urine Protein Urine Glucose (UA) Urine Ketones Urine Blood Urine Nitrite Ur Leukocyte Esterase Urine RBC Urine WBC Ur Squamous Epith Cells Urine Bacteria Hyaline Casts Urine Mucus COVID-19 ([facility]AD[facility]) COVID-19 Clin Com 06/07/21 06/07/21 06/07/21 10:40 10:40 10:40 WBC RBC Hgb Hct MCV MCH MCHC RDW Plt Count MPV Immature Gran % (Auto) Neut % (Auto) Lymph % (Auto) [place] % (Auto) Eos % (Auto) Baso % (Auto) Lymph # (Auto) [place] # (Auto) Eos # (Auto) Baso # (Auto) Abs Immat Gran (auto) Absolute Neuts (auto) Absolute Nucleated RBC Nucleated RBC % (auto) PT INR APTT D-Dimer VBG pH VBG pCO2 VBG pO2 VBG HCO3 VBG O2 Saturation VBG Base Excess Sodium Potassium Chloride Carbon Dioxide Anion Gap BUN Creatinine Estim Creat Clear Calc Estimated GFR Random Glucose Lactic Acid 1.0 Calcium Magnesium Total Bilirubin Direct Bilirubin AST ALT Alkaline Phosphatase Troponin I High Sens 7.6 B-Natriuretic Peptide Total Protein Albumin Lipase Urine Color Urine Appearance Urine pH Ur Specific [place] Urine Protein Urine Glucose (UA) Urine Ketones Urine Blood Urine Nitrite Ur Leukocyte Esterase Urine RBC Urine WBC Ur Squamous Epith Cells Urine Bacteria Hyaline Casts Urine Mucus COVID-19 ([facility]ADY) Negative COVID-19 Clin Com See Note 06/08/21 06/08/21 06/08/21 01:49 01:49 01:49 WBC 10.8 RBC 3.37 L Hgb 11.6 L Hct 35.0 L MCV 103.9 H MCH 34.4 H MCHC 33.1 RDW 14.9 Plt Count 253 MPV 10.0 Immature Gran % (Auto) 0.9 H Neut % (Auto) 71.6 Lymph % (Auto) 13.7 L [place] % (Auto) 10.8 Eos % (Auto) 2.7 Baso % (Auto) 0.3 Lymph # (Auto) 1.5 [place] # (Auto) 1.2 Eos # (Auto) 0.3 Baso # (Auto) 0.0 Abs Immat Gran (auto) 0.10 H Absolute Neuts (auto) 7.7 Absolute Nucleated RBC 0.000 Nucleated RBC % (auto) 0.0 PT INR APTT D-Dimer VBG pH VBG pCO2 VBG pO2 VBG HCO3 VBG O2 Saturation VBG Base Excess Sodium 130 L Potassium 4.3 Chloride 85 L Carbon Dioxide 33 H Anion Gap 16 BUN 26 H Creatinine 1.83 H Estim Creat Clear Calc 44.8 Estimated GFR 36 Random Glucose 99 D Lactic Acid Calcium 9.2 Magnesium Total Bilirubin Direct Bilirubin AST ALT Alkaline Phosphatase Troponin I High Sens 10.4 B-Natriuretic Peptide Total Protein Albumin Lipase Urine Color Urine Appearance Urine pH Ur Specific [place] Urine Protein Urine Glucose (UA) Urine Ketones Urine Blood Urine Nitrite Ur Leukocyte Esterase Urine RBC Urine WBC Ur Squamous Epith Cells Urine Bacteria Hyaline Casts Urine Mucus COVID-19 ([facility]ADY) COVID-19 JDLab Com 06/08/21 06/08/21 06/08/21 01:52 02:24 05:03 WBC 9.6 RBC 3.34 L Hgb 11.4 L Hct 34.8 L MCV 104.2 H MCH 34.1 H MCHC 32.8 RDW 14.9 Plt Count 218 MPV 9.9 Immature Gran % (Auto) Neut % (Auto) Lymph % (Auto) [place] % (Auto) Eos % (Auto) Baso % (Auto) Lymph # (Auto) [place] # (Auto) Eos # (Auto) Baso # (Auto) Abs Immat Gran (auto) Absolute Neuts (auto) Absolute Nucleated RBC 0.000 Nucleated RBC % (auto) 0.0 PT INR APTT D-Dimer < 200 VBG pH VBG pCO2 VBG pO2 VBG HCO3 VBG O2 Saturation VBG Base Excess Sodium Potassium Chloride Carbon Dioxide Anion Gap BUN Creatinine Estim Creat Clear Calc Estimated GFR Random Glucose Lactic Acid Calcium Magnesium Total Bilirubin Direct Bilirubin AST ALT Alkaline Phosphatase Troponin I High Sens B-Natriuretic Peptide Total Protein Albumin Lipase Urine Color YELLOW Urine Appearance CLEAR Urine pH 6.0 Ur Specific [place] 1.015 Urine Protein 1+ H Urine Glucose (UA) NEG Urine Ketones NEG Urine Blood NEG Urine Nitrite NEG Ur Leukocyte Esterase NEG Urine RBC 1-4 Urine WBC 1-4 Ur Squamous Epith Cells 1+ Urine Bacteria 1+ Hyaline Casts 1-4 Urine Mucus 1+ COVID-19 (LADY) COVID-19 JDLab Com 06/08/21 06/08/21 05:03 05:03 WBC RBC Hgb Hct MCV MCH MCHC RDW Plt Count MPV Immature Gran % (Auto) Neut % (Auto) Lymph % (Auto) [place] % (Auto) Eos % (Auto) Baso % (Auto) Lymph # (Auto) [place] # (Auto) Eos # (Auto) Baso # (Auto) Abs Immat Gran (auto) Absolute Neuts (auto) Absolute Nucleated RBC Nucleated RBC % (auto) PT INR APTT D-Dimer VBG pH VBG pCO2 VBG pO2 VBG HCO3 VBG O2 Saturation VBG Base Excess Sodium 130 L Potassium 4.2 Chloride 88 L Carbon Dioxide 34 H Anion Gap 12 BUN 25 H Creatinine 1.70 H Estim Creat Clear Calc 48.2 Estimated GFR 39 Random Glucose 99 Lactic Acid 0.7 Calcium 8.7 Magnesium Total Bilirubin Direct Bilirubin AST ALT Alkaline Phosphatase Troponin I High Sens B-Natriuretic Peptide Total Protein Albumin Lipase Urine Color Urine Appearance Urine pH Ur Specific [place] Urine Protein Urine Glucose (UA) Urine Ketones Urine Blood Urine Nitrite Ur Leukocyte Esterase Urine RBC Urine WBC Ur Squamous Epith Cells Urine Bacteria Hyaline Casts Urine Mucus COVID-19 ([facility]ADY) COVID-19 Clin Com Imaging Radiologist's impression: Impressions Chest X-Ray 06/07/21 10:21 IMPRESSION: Mild coarsening bronchiolar markings similar to prior exam. Assessment and Plan (1) Acute dyspnea: Status: Acute (2) Bradycardia: Status: Acute Pleasant 75 gentleman was background history of congestive heart failure, kidney disease, hypertension, paroxysmal atrial fibrillation, mild aortic stenosis and bradycardia is presenting with shortness of breath. Clinically not in heart failure. Was hypotensive and diuretics were held and he was given IV fluids which improved his blood pressure. I think he needs pulmonary evaluation to help assess the cause for his shortness of breath. He was already on Xarelto for atrial fibrillation so pulmonary embolism is unlikely. He has some interstitial changes on the CT scan. In my opinion there are not related to amiodarone but pulmonology can comment about it better. For now amiodarone can be held. He has chronic bradycardia. He has no symptoms due to bradycardia and denies any dizziness or syncope. No advanced heart block noticed. Thank you for allowing me to participate in the care of your patient. Please feel free to contact me if you have any questions. Procedures Date of Service Date of Service: 06/08/21
[2021-06-08] MEDS: methylPREDNISolone Sod Succ 125 MG/2 ML VIAL 60 MG IVPUSH ×2 (11:39→22:12)
--- NOTE | 2021-06-08 12:13 | HO.PM.IMPN ---
Subjective Subjective Date of Service: 06/08/21 Interval History: seen and examined overnight events reviewed patient rpeorts his breathing is a bit easier this AM and while on O2 denies cp denies dizziness Review of Systems General - no fevers or chills Cardiovascular - no chest pain Respiratory - +SOB improving slowly Abdominal- no abdominal pain, nausea, vomiting, diarrhea Review of Systems: Yes all other systems are reviewed and are negative Physical Exam Vital Signs: Vital Signs: Last Vital Signs Temp 97.3 F 06/08/21 11:37 Pulse 47 L 06/08/21 11:37 Resp 16 06/08/21 11:37 BP 125/55 L 06/08/21 11:37 Pulse Ox 99 06/08/21 11:37 Body Mass Index 46.7 Const: Other: General - no acute distress, appears comfortable Cardiovascular - regular rate and rhythm, S1-S2, no jvd appreciated Lungs - diminished sounds, no current distress Abdomen - soft, nontender, no rebound or guarding Extremities - trace pedal edema Neuro - awake and alert, no focal deficits Objective Data Active Medications Acetaminophen (Acetaminophen 325 Mg Tablet) 650 mg PO Q6H PRN PRN Reason: Pain, Mild (Pain Scale 1-3) Albuterol/Ipratropium (Albuterol/Iprat 2.5/0.5mg 3 Ml Ampul.Neb) 3 ml INHALE RQ4H PRN PRN Reason: Shortness of Breath/Wheezing Last Admin: 06/08/21 02:57 Dose: 3 ml Documented by: VANESA Albuterol/Ipratropium (Albuterol/Iprat 2.5/0.5mg 3 Ml Ampul.Neb) 3 ml INHALE RQ4H WHILE AWAKE [facility] Last Admin: 06/08/21 11:18 Dose: 3 ml Documented by: LUPILLO Allopurinol (Allopurinol 100 Mg Tablet) 200 mg PO BEDTIME [facility] Last Admin: 06/07/21 22:28 Dose: 200 mg Documented by: VINNY Atorvastatin Calcium (Atorvastatin Calcium 20 Mg Tablet) 20 mg PO DAILY [facility] Last Admin: 06/08/21 08:44 Dose: 20 mg Documented by: SAMREEN Doxycycline Hyclate 100 mg/ (Sodium Chloride) 250 mls @ 166.67 mls/hr IV Q12H [facility] Last Infusion: 06/08/21 04:35 Dose: 0 mls/hr Documented by: HECTOR Sodium Chloride (Ns) 500 mls @ 50 mls/hr IV .Q10H [facility] Stop: 06/08/21 16:44 Last Admin: 06/08/21 06:53 Dose: 50 mls/hr Documented by: KIM Losartan Potassium (Losartan Potassium 50 Mg Tablet) 50 mg PO DAILY [facility]; Protocol Last Admin: 06/07/21 14:30 Dose: 50 mg Documented by: VINNY Methylprednisolone Sodium Succinate (Methylprednisolone Sod Succ 125 Mg/2 Ml Vial) 60 mg IVPUSH BID [facility] Last Admin: 06/08/21 11:39 Dose: 60 mg Documented by: SAMREEN Multivitamins/Vitamin C (Multivitamin Tablet) 1 tab PO DAILY [facility] Last Admin: 06/08/21 08:44 Dose: 1 tab Documented by: SAMREEN Ondansetron HCl (Ondansetron Hcl 4 Mg/2 Ml Vial) 4 mg IVPUSH Q8H PRN PRN Reason: Nausea and Vomiting Pharmacy Consult (Consult Rx Perform Med Rec) 1 each MISCELLANE ONCE PRN PRN Reason: Consult order Rivaroxaban (Rivaroxaban 15 Mg Tablet) 15 mg PO DAILY@1700 [facility] Last Admin: 06/07/21 17:15 Dose: 15 mg Documented by: VINNY Sodium Chloride (0.9 % Sodium Chloride Flush 3 Ml Syringe) 3 ml IVFLUSH QSHIFT [facility] Last Admin: 06/08/21 08:46 Dose: Not Given Documented by: SAMREEN Non-Admin Reason: IV Running Vitamin D (Cholecalciferol (Vitamin D3) 25 Mcg Tablet) 25 mcg PO DAILY [facility] Last Admin: 06/08/21 08:44 Dose: 25 mcg Documented by: SAMREEN Labs CBC & Chem 7: 06/08/21 05:03 06/08/21 05:03 Labs: Laboratory Results - last 24 hr 06/08/21 06/08/21 06/08/21 01:49 01:49 01:49 MCV 103.9 H MCH 34.4 H MCHC 33.1 RDW 14.9 Plt Count 253 MPV 10.0 Immature Gran % (Auto) 0.9 H Neut % (Auto) 71.6 Lymph % (Auto) 13.7 L [place] % (Auto) 10.8 Eos % (Auto) 2.7 Baso % (Auto) 0.3 Lymph # (Auto) 1.5 [place] # (Auto) 1.2 Eos # (Auto) 0.3 Baso # (Auto) 0.0 Abs Immat Gran (auto) 0.10 H Absolute Neuts (auto) 7.7 Absolute Nucleated RBC 0.000 Nucleated RBC % (auto) 0.0 D-Dimer Anion Gap 16 Estim Creat Clear Calc 44.8 Estimated GFR 36 Random Glucose 99 D Lactic Acid Calcium 9.2 Troponin I High Sens 10.4 Urine Color Urine Appearance Urine pH Ur Specific [place] Urine Protein Urine Glucose (UA) Urine Ketones Urine Blood Urine Nitrite Ur Leukocyte Esterase Urine RBC Urine WBC Ur Squamous Epith Cells Urine Bacteria Hyaline Casts Urine Mucus 06/08/21 06/08/21 06/08/21 01:52 02:24 05:03 MCV 104.2 H MCH 34.1 H MCHC 32.8 RDW 14.9 Plt Count 218 MPV 9.9 Immature Gran % (Auto) Neut % (Auto) Lymph % (Auto) [place] % (Auto) Eos % (Auto) Baso % (Auto) Lymph # (Auto) [place] # (Auto) Eos # (Auto) Baso # (Auto) Abs Immat Gran (auto) Absolute Neuts (auto) Absolute Nucleated RBC 0.000 Nucleated RBC % (auto) 0.0 D-Dimer < 200 Anion Gap Estim Creat Clear Calc Estimated GFR Random Glucose Lactic Acid Calcium Troponin I High Sens Urine Color YELLOW Urine Appearance CLEAR Urine pH 6.0 Ur Specific [place] 1.015 Urine Protein 1+ H Urine Glucose (UA) NEG Urine Ketones NEG Urine Blood NEG Urine Nitrite NEG Ur Leukocyte Esterase NEG Urine RBC 1-4 Urine WBC 1-4 Ur Squamous Epith Cells 1+ Urine Bacteria 1+ Hyaline Casts 1-4 Urine Mucus 1+ 06/08/21 06/08/21 05:03 05:03 MCV MCH MCHC RDW Plt Count MPV Immature Gran % (Auto) Neut % (Auto) Lymph % (Auto) [place] % (Auto) Eos % (Auto) Baso % (Auto) Lymph # (Auto) [place] # (Auto) Eos # (Auto) Baso # (Auto) Abs Immat Gran (auto) Absolute Neuts (auto) Absolute Nucleated RBC Nucleated RBC % (auto) D-Dimer Anion Gap 12 Estim Creat Clear Calc 48.2 Estimated GFR 39 Random Glucose 99 Lactic Acid 0.7 Calcium 8.7 Troponin I High Sens Urine Color Urine Appearance Urine pH Ur Specific [place] Urine Protein Urine Glucose (UA) Urine Ketones Urine Blood Urine Nitrite Ur Leukocyte Esterase Urine RBC Urine WBC Ur Squamous Epith Cells Urine Bacteria Hyaline Casts Urine Mucus Assessment and Plan (1) Acute dyspnea: Status: Acute Assessment and Plan: This is a 75 yo M with? PMH of PAF on amio+xarelto, HFpEF on lasix 20mg daily, morbid obesity who presents to the hospital less than 24 hours after leaving AMA. He reports progressive shortness of breath on gonig for months but acutely worsened. His presentation is worrisome of acute CHF and bradycardia. He will be admitted for further work up. 1. Progressive shortness of breath multifactorial -- CHF (see details below) vs ? amio toxicity vs primary pulmonary issue 2. Acute on chronic HFpEF seen by cardiology -- does not appear to be acute failure stop IV diuretics, hold oral today given low bp overnight -- re-eval diuretics today hold ARB -- again due to low bp 3. ? ILD start IV steroids and PRN nebs Pulmonary input ? amio toxicity 4. Hypotension overnight -- no resolved no evidence of infetious etiology at this time 5. Sinus bradycardia Hold amio and propanolol 6. PAF Xarelto hold amio + rate control drugs 7. Morbid obesity weight loss and diet encouraged likely contributing to his respiratory symptoms 8. CKD stage 3 SCr at baseline, monitor Full Code DVT pptx, Lovenox Endorses his at [facility] Quality Stroke Does the patient have a stroke diagnosis?: No VTE Prior VTE?: No VTE Risk Level:: Medical - moderate - high VTE Device Contraindication: Treatment Not Indicated VTE Drug Contraindication: N/A - Med Ordered
--- NOTE | 2021-06-08 16:47 | P.CONPL_ITS ---
History of Present Illness History of Present Illness Consult date: 06/08/21 Reason for consult: dyspnea Chief complaint: shortness of breath Narrative: 75-year-old gentleman, lifetime nonsmoker, with underlying history of mild aortic stenosis, AFib, diastolic dysfunction admitted with complaints of progressive dyspnea. On ER evaluation patient noted to be in acute exacerbation of underlying chronic diastolic congestive heart failure and started on diuresis with some improvement. CT chest was obtained that demonstrated bibasilar bronchiolectasis with honeycombing consistent with pulmonary fibrosis. Of note, patient has been treated with amiodarone for his underlying AFib. He does not have pre amiodarone CT chest or pulmonary function test. 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 He denies prior personal or family history of lung diseases. Review of Systems Constitutional: Constitutional: Denies daytime sleepiness, Denies excessive sweating, Denies fatigue, Denies fever(s), Denies lethargy, Denies malaise, Denies night sweats, Denies snoring and Denies weight loss Eyes: Eyes: Denies blurry vision and Denies itchy eyes ENT: Denies nasal congestion, Denies post nasal drip, Denies sinus pain, Denies sinus pressure and Denies other ( Thrush) Cardiovascular: Cardiovascular: Denies chest pain, Reports pedal edema, Reports dyspnea, Reports orthopnea and Denies paroxysmal nocturnal dyspnea Respiratory: Respiratory: Denies cough, Denies hemoptysis, Denies excessive phlegm production, Reports dyspnea, Denies snoring and Denies wheezing Gastrointestinal: Gastrointestinal: Denies abdominal pain and Denies heartburn Musculoskeletal: Musculoskeletal: Denies myalgias, Denies arthralgias and Denies joint swelling Integumentary/Breasts: Skin/Breast: Denies rash Neurologic: Denies memory loss and Denies seizure-like activity Psychiatric: Psychiatric: Denies abnormal sleep pattern, Denies anxiety and Denies memory loss Endocrine: Endocrine: Denies excessive sweating, Denies fatigue and Denies heat intolerance Hematologic/Lymphatic: Hematologic/Lymphatic: Denies easy bruising Allergic/Immunologic: Allergic/Immunologic: Denies itchy eyes, Denies seasonal rhinorrhea and Denies wheezing PMFSH Past Medical History Medical History (HFpEF) heart failure with preserved ejection fraction Aortic stenosis CKD (chronic kidney disease) HTN (hypertension) Obesity Paroxysmal atrial fibrillation Family History Family History Father Cancer Mother Dementia Surgical History Surgical History History of surgery on wrist Social History Social History Alcohol intake: never Patient Tobacco Use Status: Never used Tobacco Use of substances other than those prescribed or required for medical reasons: No Advance Directives: No service: No Current occupational status: [employer] Allergies Allergy/AdvReac Type Severity Reaction Status Date / Time No Known Allergies Allergy Verified 06/07/21 10:13 [No Known Allergies*] Active Medications: Current Medications Acetaminophen (Acetaminophen 325 Mg Tablet) 650 mg PO Q6H PRN PRN Reason: Pain, Mild (Pain Scale 1-3) Albuterol/Ipratropium (Albuterol/Iprat 2.5/0.5mg 3 Ml Ampul.Neb) 3 ml INHALE RQ4H PRN PRN Reason: Shortness of Breath/Wheezing Last Admin: 06/08/21 02:57 Dose: 3 ml Documented by: Albuterol/Ipratropium (Albuterol/Iprat 2.5/0.5mg 3 Ml Ampul.Neb) 3 ml INHALE RQ4H WHILE AWAKE [facility] Last Admin: 06/08/21 11:18 Dose: 3 ml Documented by: Allopurinol (Allopurinol 100 Mg Tablet) 200 mg PO BEDTIME [facility] Last Admin: 06/07/21 22:28 Dose: 200 mg Documented by: Atorvastatin Calcium (Atorvastatin Calcium 20 Mg Tablet) 20 mg PO DAILY [facility] Last Admin: 06/08/21 08:44 Dose: 20 mg Documented by: Doxycycline Hyclate 100 mg/ (Sodium Chloride) 250 mls @ 166.67 mls/hr IV Q12H [facility] Last Admin: 06/08/21 15:43 Dose: 166.67 mls/hr Documented by: Losartan Potassium (Losartan Potassium 50 Mg Tablet) 50 mg PO DAILY [facility]; Protocol Last Admin: 06/07/21 14:30 Dose: 50 mg Documented by: Methylprednisolone Sodium Succinate (Methylprednisolone Sod Succ 125 Mg/2 Ml Vial) 60 mg IVPUSH BID [facility] Last Admin: 06/08/21 11:39 Dose: 60 mg Documented by: Multivitamins/Vitamin C (Multivitamin Tablet) 1 tab PO DAILY [facility] Last Admin: 06/08/21 08:44 Dose: 1 tab Documented by: Ondansetron HCl (Ondansetron Hcl 4 Mg/2 Ml Vial) 4 mg IVPUSH Q8H PRN PRN Reason: Nausea and Vomiting Pharmacy Consult (Consult Rx Perform Med Rec) 1 each MISCELLANE ONCE PRN PRN Reason: Consult order Rivaroxaban (Rivaroxaban 15 Mg Tablet) 15 mg PO DAILY@1700 [facility] Last Admin: 06/07/21 17:15 Dose: 15 mg Documented by: Sodium Chloride (0.9 % Sodium Chloride Flush 3 Ml Syringe) 3 ml IVFLUSH QSHIFT [facility] Last Admin: 06/08/21 15:47 Dose: Not Given Documented by: Vitamin D (Cholecalciferol (Vitamin D3) 25 Mcg Tablet) 25 mcg PO DAILY [facility] Last Admin: 06/08/21 08:44 Dose: 25 mcg Documented by: Home Medications Medication Instructions Recorded Confirmed Last Taken Type allopurinol 100 mg tablet 200 mg PO BEDTIME tab 07/25/20 06/07/21 06/05/21 History [id number] 1 tab PO Q6H PRN 07/25/20 06/07/21 Unknown History 50 mg-325 mg-40 mg tablet cholecalciferol (vitamin D3) 25 25 mcg PO DAILY 07/25/20 06/07/21 06/06/21 History mcg (1,000 unit) capsule multivitamin 1 tab PO DAILY 07/25/20 06/07/21 06/06/21 History omega-3 fatty acids 1,000 mg 1,000 mg PO DAILY 07/25/20 06/07/21 06/06/21 History capsule (Fish Oil Concentrate) losartan 50 mg tablet 50 mg PO DAILY 01/30/21 06/07/21 06/06/21 History atorvastatin 20 mg tablet 20 mg PO DAILY 06/06/21 06/07/21 06/06/21 History furosemide 20 mg tablet 20 mg PO DAILY 06/06/21 06/07/21 06/05/21 History rivaroxaban 15 mg tablet (Xarelto) 15 mg PO DAILY@1700 06/06/21 06/07/21 06/05/21 History Physical Exam Vital Signs: Vital Signs: Last Vital Signs Temp 97.7 F 06/08/21 15:59 Pulse 48 L 06/08/21 15:59 Resp 16 06/08/21 15:59 BP 113/52 L 06/08/21 15:59 Pulse Ox 97 06/08/21 15:59 Body Mass Index 46.7 Const: General: no acute distress, alert and awake Nutritional Appearance: obese Eyes: Sclerae: sclerae normal EOM: EOMs intact bilaterally Neck: Neck: Yes no lymphadenopathy, Yes trachea midline and Yes supple Resp: Effort & Inspection: normal respiratory effort and no respiratory distress Auscultation: crackles (Bibasilar) Cardio: Rate: regular rate Rhythm: regular rhythm Heart sounds: no gallops, no murmurs and no rubs GI: Palpation (GI): Soft to palpation and Other GI palpation findings present ( Nontender) Auscultation: normal bowel sounds Extrem: General: No clubbing, No cyanosis and Yes pedal edema (2+ bilateral) Results Laboratory Findings CBC and BMP: 06/08/21 05:03 06/08/21 05:03 ABG, PT/INR, D-dimer: PT/INR, D-dimer PT 18.7 SEC (9.9-13.0) H 06/07/21 10:40 INR 1.6 (0.9-1.1) H 06/07/21 10:40 D-Dimer < 200 NG/ML 06/08/21 02:24 Abnormal lab findings: Abnormal Labs 06/07/21 06/07/21 06/07/21 10:33 10:40 10:40 RBC 3.33 L Hgb 11.5 L Hct 34.4 L MCV 103.3 H MCH 34.5 H Immature Gran % (Auto) 0.6 H Neut % (Auto) 77.1 H Lymph % (Auto) 11.5 L Lymph # (Auto) 1.1 L Abs Immat Gran (auto) 0.06 H PT INR VBG HCO3 42 H Sodium 128 L Chloride 84 L Carbon Dioxide 38 H Anion Gap 10 L BUN 21 H Creatinine 1.46 H Random Glucose 157 H Total Bilirubin B-Natriuretic Peptide Urine Protein 06/07/21 06/07/21 06/07/21 10:40 10:40 10:40 RBC Hgb Hct MCV MCH Immature Gran % (Auto) Neut % (Auto) Lymph % (Auto) Lymph # (Auto) Abs Immat Gran (auto) PT 18.7 H INR 1.6 H VBG HCO3 Sodium Chloride Carbon Dioxide Anion Gap BUN Creatinine Random Glucose Total Bilirubin 1.1 H B-Natriuretic Peptide 288 H Urine Protein 06/08/21 06/08/21 06/08/21 01:49 01:49 01:52 RBC 3.37 L Hgb 11.6 L Hct 35.0 L MCV 103.9 H MCH 34.4 H Immature Gran % (Auto) 0.9 H Neut % (Auto) Lymph % (Auto) 13.7 L Lymph # (Auto) Abs Immat Gran (auto) 0.10 H PT INR VBG HCO3 Sodium 130 L Chloride 85 L Carbon Dioxide 33 H Anion Gap BUN 26 H Creatinine 1.83 H Random Glucose Total Bilirubin B-Natriuretic Peptide Urine Protein 1+ H 06/08/21 06/08/21 05:03 05:03 RBC 3.34 L Hgb 11.4 L Hct 34.8 L MCV 104.2 H MCH 34.1 H Immature Gran % (Auto) Neut % (Auto) Lymph % (Auto) Lymph # (Auto) Abs Immat Gran (auto) PT INR VBG HCO3 Sodium 130 L Chloride 88 L Carbon Dioxide 34 H Anion Gap BUN 25 H Creatinine 1.70 H Random Glucose Total Bilirubin B-Natriuretic Peptide Urine Protein Microbiology: Microbiology 06/07/21 12:05 Blood - Venous Blood Culture - Preliminary No growth after 24 hours. 06/07/21 11:31 Blood - Venous Blood Culture - Preliminary No growth after 24 hours. Assessment and Plan (1) Acute dyspnea: Status: Acute Impression: 75-year-old gentleman with underlying chronic diastolic congestive heart failure, AFib, obesity, early pulmonary fibrosis admitted with dyspnea and treated with diuretic. Patient endorses some improvement in his dyspnea with diuresis. His creatinine has actually improved with diuresis. Recommendation: Agree with further diuresis and empiric treatment for IPF exa cerbation with systemic glucocorticoids. (2) IPF (idiopathic pulmonary fibrosis): Status: Acute (3) Acute on chronic diastolic (congestive) heart failure: Status: Acute Procedures Date of Service Date of Service: 06/08/21
--- NOTE | 2021-06-08 18:03 | PC.NURSE ---
pt's at bedside. current b/p 132/57. pt denies sob/dizziness/headache/no chest pain. Pt given supper. Xarelto not in ed [facility], pharmacy was notified and will bring med to the ed.
[2021-06-08] MEDS: Rivaroxaban 15 MG TABLET PO (18:12)
[2021-06-08] MEDS: allopurinoL 100 MG TABLET 200 MG PO (22:11)
[2021-06-09] VITALS (8 sets, daily range): BP systolic 108–142; BP diastolic 47–59; PULSE 53–65; RESP 14–20; TEMP 36.4–37; O2SAT 92–97; BMI 47.8
[2021-06-09] MEDS: 0.9 % Sodium Chloride Flush 3 ML SYRINGE IVFLUSH ×4 (00:22→21:46)
[2021-06-09] MEDS: Doxycycline Hyclate 100 MG in 0.9 % Sodium Chloride 250 ML 166.67 MG IV ×2 (03:07→16:22)
[2021-06-09] MEDS: Atorvastatin Calcium 20 MG TABLET PO (09:33)
[2021-06-09] MEDS: Cholecalciferol (Vitamin D3) 25 MCG TABLET PO (09:33)
[2021-06-09] MEDS: methylPREDNISolone Sod Succ 125 MG/2 ML VIAL 60 MG IVPUSH ×2 (09:34→21:46)
[2021-06-09] MEDS: Multivitamin TABLET 1 TAB PO (09:34)
--- NOTE | 2021-06-09 11:37 | P.PNIM_ITS ---
Progress Note: A&P (1) IPF (idiopathic pulmonary fibrosis): Status: Acute Assessment and Plan: This is a 75 yo M with? PMH of PAF on amio+xarelto, HFpEF on lasix 20mg daily, morbid obesity who presents to the hospital less than 24 hours after leaving AMA. He reports progressive shortness of breath on gonig for months but acutely worsened. His presentation is worrisome of acute CHF and bradycardia. He will be admitted for further work up. Progressive shortness of breath Likely secondary to idiopathic pulmonary fibrosis seen and evaluated by pulmonology with recommendation to continue steroids and bronchodilators cardiology did not feel that this was related to amiodarone, but will remain held for now due to bradycardia Doxycycline Acute on chronic HFpEF seen by cardiology -- does not appear to be acute failure stop IV diuretics, hold oral today given low bp overnight hold ARB -- again due to low bp Hypotension. Resolved no evidence of infectious etiology at this time Sinus bradycardia Hold amio and propanolol PAF Xarelto hold amio + rate control drugs Morbid obesity weight loss and diet encouraged likely contributing to his respiratory symptoms CKD stage 3 SCr at baseline, monitor Full Code DVT pptx, Lovenox Attending Dr. Chung Subjective Subjective Date of Service: 06/09/21 Review of Systems Follow-up pulmonary fibrosis Improved sob has cough with yellow phlegm Physical Exam Vital Signs: Vital Signs: Last Vital Signs Temp 97.7 F 06/09/21 11:32 Pulse 59 06/09/21 11:32 Resp 18 06/09/21 11:32 BP 108/47 L 06/09/21 11:32 Pulse Ox 94 06/09/21 11:32 Body Mass Index 47.8 Appearing in no acute distress lung sounds are clear to auscultation heart regular rate rhythm, clear S1, S2 positive bowel sounds, abdomen is soft, nontender neuro patient is alert x3, no focal deficits Objective Data Current Medications Acetaminophen (Acetaminophen 325 Mg Tablet) 650 mg PO Q6H PRN PRN Reason: Pain, Mild (Pain Scale 1-3) Albuterol/Ipratropium (Albuterol/Iprat 2.5/0.5mg 3 Ml Ampul.Neb) 3 ml INHALE RQ4H PRN PRN Reason: Shortness of Breath/Wheezing Last Admin: 06/08/21 02:57 Dose: 3 ml Documented by: Albuterol/Ipratropium (Albuterol/Iprat 2.5/0.5mg 3 Ml Ampul.Neb) 3 ml INHALE RQ4H WHILE AWAKE [facility] Last Admin: 06/08/21 19:41 Dose: Not Given Documented by: Allopurinol (Allopurinol 100 Mg Tablet) 200 mg PO BEDTIME [facility] Last Admin: 06/08/21 22:11 Dose: 200 mg Documented by: Atorvastatin Calcium (Atorvastatin Calcium 20 Mg Tablet) 20 mg PO DAILY [facility] Last Admin: 06/09/21 09:33 Dose: 20 mg Documented by: Doxycycline Hyclate 100 mg/ (Sodium Chloride) 250 mls @ 166.67 mls/hr IV Q12H [facility] Last Infusion: 06/09/21 04:47 Dose: Infused Documented by: Losartan Potassium (Losartan Potassium 50 Mg Tablet) 50 mg PO DAILY [facility]; Protocol Last Admin: 06/07/21 14:30 Dose: 50 mg Documented by: Methylprednisolone Sodium Succinate (Methylprednisolone Sod Succ 125 Mg/2 Ml V ial) 60 mg IVPUSH BID [facility] Last Admin: 06/09/21 09:34 Dose: 60 mg Documented by: Multivitamins/Vitamin C (Multivitamin Tablet) 1 tab PO DAILY [facility] Last Admin: 06/09/21 09:34 Dose: 1 tab Documented by: Ondansetron HCl (Ondansetron Hcl 4 Mg/2 Ml Vial) 4 mg IVPUSH Q8H PRN PRN Reason: Nausea and Vomiting Pharmacy Consult (Consult Rx Perform Med Rec) 1 each MISCELLANE ONCE PRN PRN Reason: Consult order Rivaroxaban (Rivaroxaban 15 Mg Tablet) 15 mg PO DAILY@1700 [facility] Last Admin: 06/08/21 18:12 Dose: 15 mg Documented by: Sodium Chloride (0.9 % Sodium Chloride Flush 3 Ml Syringe) 3 ml IVFLUSH QSHIFT [facility] Last Admin: 06/09/21 09:34 Dose: 3 ml Documented by: Vitamin D (Cholecalciferol (Vitamin D3) 25 Mcg Tablet) 25 mcg PO DAILY [facility] Last Admin: 06/09/21 09:33 Dose: 25 mcg Documented by: Labs CBC & Chem 7: 06/08/21 05:03 06/08/21 05:03 Microbiology Microbiology Results: Microbiology 06/07/21 12:05 Blood - Venous Blood Culture - Preliminary No growth after 24 hours. 06/07/21 11:31 Blood - Venous Blood Culture - Preliminary No growth after 24 hours. Quality Stroke Does the patient have a stroke diagnosis?: No VTE Prior VTE?: No VTE Risk Level:: Medical - moderate - high VTE Device Contraindication: Treatment Not Indicated VTE Drug Contraindication: N/A - Med Ordered
[2021-06-09] MEDS: Albuterol/Iprat 2.5/0.5MG 3 ML AMPUL.NEB INHALE ×2 (11:56→15:41)
--- NOTE | 2021-06-09 12:40 | PM.PNCARD ---
Subjective Subjective Date of Service: 06/09/21 Interval history: He is saying he is feeling better. He is on steroids. Diuretics were had any was given IV fluids yesterday because of low blood pressure. Amiodarone propanolol were held also. Amiodarone was held because of abnormal LFTs. Physical Exam Vital Signs: Last Vital Signs Temp 97.7 F 06/09/21 11:32 Pulse 58 06/09/21 11:58 Resp 18 06/09/21 11:32 BP 108/47 L 06/09/21 11:32 Pulse Ox 94 06/09/21 11:32 Body Mass Index 47.8 GENERAL APPEARANCE: in no acute distress, pleasant. NECK: no carotid bruit, no jugular venous distention. SKIN: no suspicious lesions, warm and dry. HEART:? Bradycardic. LUNGS: clear to auscultation bilaterally. ABDOMEN: soft, nontender. EXTREMITIES: no edema. PERIPHERAL PULSES: equal. NEUROLOGIC: No gross deficits, AAO X 3 Results Labs and Meds Result diagrams: 06/08/21 05:03 06/08/21 05:03 Progress Note: A&P Assessment and plan (1) IPF (idiopathic pulmonary fibrosis): Status: Acute (2) Bradycardia: Status: Acute (3) (HFpEF) heart failure with preserved ejection fraction: Status: Acute Assessment and Plan: Pleasant 75-year-old gentleman who presented for shortness of breath. CT scan showed some changes consistent with dyspnea lung disease. He was started on steroids. On admission he was hypotensive and required IV fluids. Clinically was not volume overloaded. Continues to be euvolemic. I think his home dose Lasix 20 mg once a day can be resumed. Continue to hold the amiodarone for now. GI can be cut sided for advise whether amiodarone is the reason for the elevated LFTs. He has chronic bradycardia. I think the propanolol can be resumed as before. Thank you for allowing me to participate in the care of your patient. Please feel free to contact me if you have any questions. Fall Risk Details Current Medications: Current Medications Acetaminophen (Acetaminophen 325 Mg Tablet) 650 mg PO Q6H PRN PRN Reason: Pain, Mild (Pain Scale 1-3) Albuterol/Ipratropium (Albuterol/Iprat 2.5/0.5mg 3 Ml Ampul.Neb) 3 ml INHALE RQ4H PRN PRN Reason: Shortness of Breath/Wheezing Last Admin: 06/08/21 02:57 Dose: 3 ml Documented by: Albuterol/Ipratropium (Albuterol/Iprat 2.5/0.5mg 3 Ml Ampul.Neb) 3 ml INHALE RQ4H WHILE AWAKE [facility] Last Admin: 06/09/21 11:57 Dose: Not Given Documented by: Allopurinol (Allopurinol 100 Mg Tablet) 200 mg PO BEDTIME [facility] Last Admin: 06/08/21 22:11 Dose: 200 mg Documented by: Atorvastatin Calcium (Atorvastatin Calcium 20 Mg Tablet) 20 mg PO DAILY [facility] Last Admin: 06/09/21 09:33 Dose: 20 mg Documented by: Doxycycline Hyclate 100 mg/ (Sodium Chloride) 250 mls @ 166.67 mls/hr IV Q12H [facility] Last Infusion: 06/09/21 04:47 Dose: Infused Documented by: Losartan Potassium (Losartan Potassium 50 Mg Tablet) 50 mg PO DAILY [facility]; Protocol Last Admin: 06/07/21 14:30 Dose: 50 mg Documented by: Methylprednisolone Sodium Succinate (Methylprednisolone Sod Succ 125 Mg/2 Ml Vial) 60 mg IVPUSH BID [facility] Last Admin: 06/09/21 09:34 Dose: 60 mg Documented by: Multivitamins/Vitamin C (Multivitamin Tablet) 1 tab PO DAILY [facility] Last Admin: 06/09/21 09:34 Dose: 1 tab Documented by: Ondansetron HCl (Ondansetron Hcl 4 Mg/2 Ml Vial) 4 mg IVPUSH Q8H PRN PRN Reason: Nausea and Vomiting Pharmacy Consult (Consult Rx Perform Med Rec) 1 each MISCELLANE ONCE PRN PRN Reason: Consult order Rivaroxaban (Rivaroxaban 15 Mg Tablet) 15 mg PO DAILY@1700 [facility] Last Admin: 06/08/21 18:12 Dose: 15 mg Documented by: Sodium Chloride (0.9 % Sodium Chloride Flush 3 Ml Syringe) 3 ml IVFLUSH QSHIFT [facility] Last Admin: 06/09/21 09:34 Dose: 3 ml Documented by: Vitamin D (Cholecalciferol (Vitamin D3) 25 Mcg Tablet) 25 mcg PO DAILY [facility] Last Admin: 06/09/21 09:33 Dose: 25 mcg Documented by: Time Spent With Patient Time: Total time spent is greater than 50% in coordination of care (as documented) at patient's floor/unit and/or counseling patient: Time with patient: 15 - 24 minutes Progress Note: Quality Stroke Does the patient have a stroke diagnosis?: No Procedures Date of Service Date of Service: 06/09/21
[2021-06-09] MEDS: Rivaroxaban 15 MG TABLET PO (16:21)
[2021-06-09] MEDS: allopurinoL 100 MG TABLET 200 MG PO (21:46)
[2021-06-10] VITALS (9 sets, daily range): BP systolic 117–137; BP diastolic 52–63; PULSE 54–78; RESP 18; TEMP 36.2–36.8; O2SAT 87–97; BMI 48.4
[2021-06-10] MEDS: Doxycycline Hyclate 100 MG in 0.9 % Sodium Chloride 250 ML 166.67 MG IV ×2 (02:39→14:38)
[2021-06-10] MEDS: methylPREDNISolone Sod Succ 125 MG/2 ML VIAL 60 MG IVPUSH (08:10)
[2021-06-10] MEDS: Atorvastatin Calcium 20 MG TABLET PO (08:10)
[2021-06-10] MEDS: Cholecalciferol (Vitamin D3) 25 MCG TABLET PO (08:10)
[2021-06-10] MEDS: Multivitamin TABLET 1 TAB PO (08:10)
[2021-06-10] MEDS: 0.9 % Sodium Chloride Flush 3 ML SYRINGE IVFLUSH (08:10)
[2021-06-10] MEDS: Albuterol/Iprat 2.5/0.5MG 3 ML AMPUL.NEB INHALE ×3 (08:23→15:46)
[2021-06-10 09:32] LABS: Anion Gap 11 (12-20); Blood Urea Nitrogen 35 mg/dL (9-16); Calcium 9.3 mg/dL (8.4-10.2); Carbon Dioxide 34 mmol/L (22-29); Chloride 93 mmol/L (96-108); Creatinine Clr Calc Pharmacy 63.3; Estimated Glomerular Filt Rate 53; Glucose Random 161 mg/dL (60-115); Potassium 4.9 mmol/L (3.3-5.1); Sodium 133 mmol/L (135-145)
--- NOTE | 2021-06-10 12:43 | P.DS_ITS ---
DS: Providers Provider Date of Service: 06/10/21 <Dora Kurtz NP - Last Filed: 06/10/21 12:49> Date of admission: 06/07/21 12:31 <Dora Kurtz NP - Last Filed: 06/10/21 12:49> Primary care physician: Brandi Mayes MD <Dora Kurtz NP - Last Filed: 06/10/21 12:49> Consults: 06/07/21 12:32 Consult to Cardiology Routine Consulting Provider: [facility] Reason for consultation: chf, bradycardia 06/08/21 11:00 Consult to Pulmonology Routine Consulting Provider: Chico Montejo Reason for consultation: ? ILD findings on CT secondary to amio? <Dora Kurtz NP - Last Filed: 06/10/21 12:49> Attending physician on discharge: Chuy Chung <Dora Kurtz NP - Last Filed: 06/10/21 12:49> Discharging clinician: Dora Kurtz <Dora Kurtz NP - Last Filed: 06/10/21 12:49> DS: Diagnosis Discharge Diagnosis (1) IPF (idiopathic pulmonary fibrosis): Status: Acute <Dora Kurtz NP - Last Filed: 06/10/21 12:49> (2) Bradycardia: Status: Resolved <Dora Kurtz NP - Last Filed: 06/10/21 12:49> (3) (HFpEF) heart failure with preserved ejection fraction: DS: Summary Hospital Course Hospital Course: HP as per admitting provider This is a 75-year-old male with a past medical history of paroxysmal AFib maintained in sinus with amiodarone and on anticoagulation with Xarelto, HFpEF, morbid obesity presents to the emergency room for the 2nd time in as many days with complaints of shortness of breath.? Patient was seen in the ED on 06/06/2021 by me for admission for CHF exacerbation.? However, at that time he refused inpatient admission and left against medical advice.? He now returns less than 24 hours with persistent shortness of breath.? He reports that his breathing has progressively worsened over several weeks.? Upon further questioning he actually reports that his breathing has been ongoing for much longer.? He reports being unable to sleep supine requiring a recliner to sleep.? He reports weight gain.? He reports that his dyspnea was initially with exertion but now even minimal activity has caused his symptoms. His workup in the emergency room revealed an elevated BNP as well as a chest x-ray suggestive of pulmonary/interstitial edema.? His case was discussed by the ED provider with Cardiology who recommended holding his rate control drugs and they will be seeing him once hospitalized . Idiopathic pulmonary fibrosis. Seen and evaluated by pulmonology with recommendation to continue steroids and bronchodilators while inpatient. He had an a home O2 evaluation and will be going home 2 L of oxygen. Twelve day prednisone taper and 7 more days of doxycycline. He will need to follow up with pulmonology for further evaluation for other medication treatment. Sinus bradycardia. Had some episodes however amiodarone and propranolol were held, pulse not baseline. He should follow-up with Cardiology regarding restarting his amiodarone. <Dora Kurtz NP - Last Filed: 06/10/21 12:49> Time Spent with Patient Time attestation: Total time spent providing and/or coordinating discharge services: <Dora Kurtz NP - Last Filed: 06/10/21 12:49> Discharge coordination time: Greater than 30 minutes <Dora Kurtz NP - Last Filed: 06/10/21 12:49> Quality: Stroke Does the patient have a stroke diagnosis?: No <Dora Kurtz NP - Last Filed: 06/10/21 12:49> Physical Exam Vital Signs: Vital Signs: Last Vital Signs Temp 97.7 F 06/10/21 11:23 Pulse 64 06/10/21 12:16 Resp 18 06/10/21 11:23 BP 117/57 L 06/10/21 11:23 Pulse Ox 90 L 06/10/21 11:23 Body Mass Index 48.4 <Dora Kurtz NP - Last Filed: 06/10/21 12:49> Appearing in no acute distress head is normocephalic atraumatic eyes pupils are PERRLA sclera is anicteric mouth throat mucous membranes are intact and moist neck is supple no lymphadenopathy, no JVD noted lung sounds are clear to auscultation heart regular rate rhythm, clear S1, S2 positive bowel sounds, abdomen is soft, nontender neuro patient is alert x3, no focal deficits <Dora Kurtz NP - Last Filed: 06/10/21 12:49> DS: Data Data Completed and Pending Labs on day of discharge: Laboratory Results - last 24 hr 06/08/21 06/10/21 05:03 08:30 Sodium 133 L Potassium 4.9 Chloride 93 L Carbon Dioxide 34 H Anion Gap 11 L BUN 35 H Creatinine 1.32 Estim Creat Clear Calc 63.3 Estimated GFR 53 Random Glucose 161 H D Calcium 9.3 D Cortisol 16.8 Preliminary micro results at discharge 06/07/21 12:05 Blood Culture - Preliminary Blood - Venous No growth after 48 hours. 06/07/21 11:31 Blood Culture - Preliminary Blood - Venous No growth after 48 hours. <Dora Kurtz NP - Last Filed: 06/10/21 12:49> Discharge Plan Discharge Anticipated Discharge Date/Time: 06/10/21 12:43 <Dora Kurtz NP - Last Filed: 06/10/21 12:49> Patient Disposition: Home, Self-Care <Dora Kurtz NP - Last Filed: 06/10/21 12:49> Discharge Diagnosis: Idiopathic pulmonary fibrosis Acute on chronic heart failure with preserved ejection fraction Hypotension Bradycardia <Dora Kurtz NP - Last Filed: 06/10/21 12:49> Idiopathic pulmonary fibrosis Acute on chronic heart failure with preserved ejection fraction Hypotension Bradycardia <Chuy Chung MD - Last Filed: 06/22/21 15:48> Referrals: Brandi Mayes MD [Primary Care Provider] - 1 Week Chico Montejo MD [Physician] - 1 Week (IPF ) <Dora Kurtz NP - Last Filed: 06/10/21 12:49> Discharge Medications: New prednisone 10 mg tablet See Taper mg PO DAILY Qty: 30 RF: 0 Continued propranolol 120 mg capsule,extended release 24 hr 120 mg PO DAILY Qty: 30 RF: 4 amiodarone 200 mg tablet 100 mg PO DAILY Qty: 45 RF: 3 atorvastatin 20 mg tablet 20 mg PO DAILY RF: 0 furosemide 20 mg tablet 20 mg PO DAILY RF: 0 Xarelto 15 mg tablet 15 mg PO DAILY@1700 RF: 0 jmlfxdimxp-tnoaatlxyqcnx-pfdn 50-325-40 mg tablet 1 tab PO Q6H PRN (Reason: Migraine Headache) RF: 0 omega-3 fatty acids [Fish Oil Concentrate] 1,000 mg capsule 1,000 mg PO DAILY RF: 0 multivitamin Tablet 1 tab PO DAILY RF: 0 cholecalciferol (vitamin D3) 25 mcg (1,000 unit) capsule 25 mcg PO DAILY RF: 0 allopurinol 100 mg tablet 200 mg PO BEDTIME RF: 0 losartan 50 mg tablet 50 mg PO DAILY RF: 0 <Dora Kurtz NP - Last Filed: 06/10/21 12:49> Discharge Orders: Discharge Order (Routine); Ordered 06/10/21 Ordered By: Dora Kurtz <Dora Kurtz NP - Last Filed: 06/10/21 12:49> Diet: advance to usual diet <Dora Kurtz NP - Last Filed: 06/10/21 12:49> advance to usual diet <Chuy Chung MD - Last Filed: 06/22/21 15:48> Activity on Discharge: As tolerated <Dora Kurtz NP - Last Filed: 06/10/21 12:49> As tolerated <Chuy Chung MD - Last Filed: 06/22/21 15:48> Stand Alone Forms: Patient Portal Discharge page <Dora Kurtz NP - Last Filed: 06/10/21 12:49> Care Plan Goals: no further episodes of hypoxia <Dora Kurtz NP - Last Filed: 06/10/21 12:49> Health Concerns: Idiopathic pulmonary fibrosis Acute on chronic heart failure with preserved ejection fraction Hypotension Bradycardia <Dora Kurtz NP - Last Filed: 06/10/21 12:49> Plan of Treatment: Follow up a primary care provider as needed Please follow-up with the ice scraper Dr. Montejo Take all medications as prescribed You will be going home with 2 L of oxygen. Oxygen safety tips below. * Stay at least 10 feet from?open flames. And stay at least 5 feet from sources of a flame.?These include cigarettes, matches, candles, fireplaces, gas burners, and pipes. Or anything else that could start a fire. * Don't smoke. Don?t be around others who are smoking. * Keep oxygen tanks at least 5 feet from any heat source. This includes gas stoves, space heaters, and electric and gas heaters. * Keep the door to the room open. This helps to move air around. It keeps the room from being stuffy. * Protect your oxygen tank from being knocked over. * Store the oxygen tank upright in a secure, approved storage device. * Turn the tank off right away if it is knocked over and makes a hissing noise. If the regulator breaks or you can't safely turn the tank off, remove the tubing and leave the room. Then call the supply company or the fire department right away. * Be careful not to trip over the tubing. * Don't use lotions or creams that have petroleum jelly. This can start a fire when mixed with oxygen. * Turn oxygen off when not using it. * Follow the instructions for safe use from your supply company. Not using oxygen safely is dangerous. It can put you and your neighbors at higher risk for fires and [place]. * Know what to do in an emergency. Your emergency numbers should include 911, your healthcare provider, and your medical supply company. <Dora Kurtz NP - Last Filed: 06/10/21 12:49> Assessment: see discharge summary I saw patient and discssed finding and plan with [employer] and I agree witht the above <Dora Kurtz NP - Last Filed: 06/10/21 12:49> Discharge Date/Time: 06/10/21 17:49 <Dora Kurtz NP - Last Filed: 06/10/21 12:49>
--- NOTE | 2021-06-10 12:54 | MHC.CM.PN ---
Patient has been medically cleared for dc to home today, no services. Last IMM addressed on 06/08/21.
[2021-06-10] MEDS: Rivaroxaban 15 MG TABLET PO (16:26)
== END 2021-06-10 17:49 | disposition home or self-care (01) | DRG 196 ==
LOC: HO.ED 10:58 → HO.EDOVER 12:47 → HO.S3 22:12 → HO.EDOVER 22:26 → HO.IMC 06-08 18:32
PROVIDERS: Hospitalist; Admitting Provider Family Medicine; Emergency Provider Emergency Medicine; PCP Internal Medicine; Visit Provider Nurse Practitioner Acute Care
DX: J84.112 Idiopathic pulmonary fibrosis (principal); I50.33 Acute on chronic diastolic (congestive) heart failure; I13.0 Hypertensive heart and chronic kidney disease with heart failure and stage 1 through stage 4 chronic kidney disease, or unspecified chronic kidney disease; Z68.42 Body mass index [BMI] 45.0-49.9, adult; E66.01 Morbid (severe) obesity due to excess calories; I95.9 Hypotension, unspecified; R00.1 Bradycardia, unspecified; N18.30 Chronic kidney disease, stage 3 unspecified; I48.0 Paroxysmal atrial fibrillation; Z20.822 Contact with and (suspected) exposure to COVID-19; Z79.01 Long term (current) use of anticoagulants; Z79.899 Other long term (current) drug therapy
CPT/HCPCS: 36415; 71045; 71250; 80048; 80076; 81001; 82533; 82803; 83605; 83690; 83735; 83880; 84484; 85025; 85027; 85379; 85610; 85730; 87040; 87635; 90686; 93005; 94640; 96374; 99285; J1940; J2930

== ENCOUNTER → 2021-06-18 13:02 | Outpatient (BNVA) | payer MEDICARE, SELFPAY | PROVIDERS: PCP Internal Medicine; Visit Provider Internal Medicine | DX: J84.112 Idiopathic pulmonary fibrosis (principal); J98.4 Other disorders of lung; R09.02 Hypoxemia; I48.0 Paroxysmal atrial fibrillation; I50.9 Heart failure, unspecified; E66.01 Morbid (severe) obesity due to excess calories | CPT/HCPCS: 99212 ==

== ENCOUNTER 2021-06-29 12:37 | Outpatient (REF) | payer MEDICARE, SELFPAY ==
--- NOTE | 2021-06-29 17:21 | PFT_ITS ---
INDICATION: Pulmonary fibrosis. SPIROMETRY: The FEV1 to FVC of 56% with an FEV1 of 0.76 L, which is 26% predicted, and an FVC of 1.37 L, which is 34% predicted. No significant response to bronchodilators noted. Maximum voluntary ventilation 28% predicted. LUNG VOLUMES: Total lung capacity 64% predicted with an expiratory reserve volume of 36% predicted. DIFFUSION CAPACITY: DLCO 26% predicted. COMPARISONS: I do not have any available at this time. INTERPRETATION: There is a mixed obstructive, restrictive ventilatory defects. It appears that he has very severe COPD without any response to bronchodilators in addition to a moderate degree of restrictive ventilatory defect likely from his underlying pulmonary fibrosis. The patient has a severe decrease in the maximum voluntary ventilation secondary to likely deconditioning. He also has a very severe diffusion impairment secondary to his parenchymal lung disease and emphysema. The patient should have a 6-minute walk test to see if he qualifies for oxygen if he has not had already. MD FIORDALIZA El/DEE / [phone]
== END 2021-06-29 12:38 | disposition home or self-care (01) ==
LOC: HO.RESP 12:37
PROVIDERS: PCP Internal Medicine; Visit Provider Internal Medicine
DX: J84.112 Idiopathic pulmonary fibrosis (principal); J98.4 Other disorders of lung; R09.02 Hypoxemia; E66.01 Morbid (severe) obesity due to excess calories
CPT/HCPCS: 94060; 94727; 94729

== ENCOUNTER 2021-07-17 12:57 | Outpatient (REF) | payer MEDICARE, SELFPAY ==
[2021-07-17 14:48] LABS: B Type Natriuretic Peptide 96 pg/mL (<100)
[2021-07-17 15:07] LABS: Anion Gap 12 (12-20); Blood Urea Nitrogen 29 mg/dL (9-16); Calcium 9.3 mg/dL (8.4-10.2); Carbon Dioxide 40 mmol/L (22-29); Chloride 91 mmol/L (96-108); Estimated Glomerular Filt Rate 40; Glucose Random 124 mg/dL (60-115); Potassium 4.4 mmol/L (3.3-5.1); Sodium 139 mmol/L (135-145)
== END 2021-07-17 12:58 | disposition home or self-care (01) ==
LOC: HO.LAB 12:57
PROVIDERS: Absent Provider Internal Medicine Cardiovascular Disease; PCP Internal Medicine; Visit Provider Internal Medicine
DX: I48.0 Paroxysmal atrial fibrillation (principal); J44.9 Chronic obstructive pulmonary disease, unspecified; J98.4 Other disorders of lung; R09.02 Hypoxemia; E66.01 Morbid (severe) obesity due to excess calories; I50.33 Acute on chronic diastolic (congestive) heart failure; Z79.899 Other long term (current) drug therapy; Z99.81 Dependence on supplemental oxygen; Z68.41 Body mass index [BMI] 40.0-44.9, adult
CPT/HCPCS: 36415; 80048; 83880; 99212

== ENCOUNTER → 2021-08-06 12:39 | Outpatient (BNVA) | payer MEDICARE, SELFPAY | PROVIDERS: PCP Internal Medicine; Referring Provider Internal Medicine; Visit Provider Internal Medicine Cardiovascular Disease | DX: I48.0 Paroxysmal atrial fibrillation (principal); I50.9 Heart failure, unspecified; J96.11 Chronic respiratory failure with hypoxia | CPT/HCPCS: 93005; 99212 ==

== ENCOUNTER → 2021-09-25 13:07 | Outpatient (BNVA) | payer MEDICARE, SELFPAY | PROVIDERS: PCP Internal Medicine; Visit Provider Internal Medicine | DX: J44.9 Chronic obstructive pulmonary disease, unspecified (principal); J98.4 Other disorders of lung; R09.02 Hypoxemia; E66.01 Morbid (severe) obesity due to excess calories | CPT/HCPCS: 99212 ==

== ENCOUNTER 2021-11-21 19:06 | Emergency (ER) | payer MEDICARE, SELFPAY ==
[2021-11-21 19:14] VITALS: BP 102/45; PULSE 55; RESP 20; TEMP 36.3; O2SAT 97; BMI 47.2
[2021-11-21 19:33] LABS: MANUAL DIFF FLAG NO
[2021-11-21 19:34] LABS: Basophils Percent Auto 0.4 % (0-2); Eosinophils Absolute Auto 0.3 X10*3/uL (0.0-0.4); Eosinophils Percent Auto 2.9 % (0-4); Hematocrit 30.9 % (42.0-52.0); Hemoglobin 9.8 g/dl (14.0-18.0); Imm Gran Abs Auto 0.09 X10*3/uL (0.00-0.03); Imm Gran Pct Auto 0.9 % (0.0-0.4); Lymphocytes Absolute Auto 1.4 X10*3/uL (1.2-4.9); Lymphocytes Percent Auto 12.9 % (20-40); Mean Corpuscular HGB Conc 31.7 g/dl (31.0-36.0); Mean Corpuscular Hemoglobin 32.6 pg (27.0-33.0); Mean Corpuscular Volume 102.7 fL (80.0-98.0); Mean Platelet Volume 10.3 fL (9.4-12.4); Monocytes Percent Auto 9.8 % (2-11); Neutrophils Absolute Auto 7.7 x10*3/uL (2.0-8.3); Neutrophils Percent Auto 73.1 % (45-73); Platelet Count 258 X10*3/uL (160-400); Red Blood Count 3.01 X10*6/uL (4.60-5.80); Red Cell Distribution Width 15.9 % (11.0-16.0); White Blood Count 10.5 X10*3/uL (4.8-10.8)
--- NOTE | 2021-11-21 22:20 | ED.EPISTAXIS ---
History of Present Illness General Chief Complaint: Epistaxis Stated Complaint: nose bleed Time Seen by Provider: 11/21/21 22:20 Source: patient Mode of arrival: ambulatory Limitations: no limitations History of Present Illness HPI Narrative: Patient on Xarelto and home oxygen does not have any humidifier at home patient removed the scab from right nostril and start bleeding from the right nostri happen 2 times today history of same in the past also has a subconjunctival hemorrhage left eye no other bleeding no hematuria no blood per rectum usually in the past bleeding usually stops but his time continued and happened 2 times. Patient otherwise feels normal no shortness for no dizziness no chest pain Related Data Home Medications Medication Instructions Recorded Confirmed allopurinol 100 mg tablet 200 mg PO BEDTIME tab 07/25/20 09/25/21 [id number]-ricjklqakekiv-pqtslozg 1 tab PO Q6H PRN 07/25/20 09/25/21 50 mg-325 mg-40 mg tablet cholecalciferol (vitamin D3) 25 25 mcg PO DAILY 07/25/20 09/25/21 mcg (1,000 unit) capsule multivitamin 1 tab PO DAILY 07/25/20 09/25/21 omega-3 fatty acids 1,000 mg 1,000 mg PO DAILY 07/25/20 09/25/21 capsule (Fish Oil Concentrate) losartan 50 mg tablet 50 mg PO DAILY 01/30/21 09/25/21 atorvastatin 20 mg tablet 20 mg PO DAILY 06/06/21 09/25/21 Previous Rx's Medication Instructions Recorded propranolol 120 mg capsule,24 120 mg PO DAILY #30 cap 09/13/20 hr,extended release amiodarone 200 mg tablet 100 mg PO DAILY #45 tab 03/07/21 furosemide 20 mg tablet 20 mg PO DAILY 90 Days #90 tab 07/05/21 rivaroxaban 15 mg tablet (Xarelto) 15 mg PO DAILY@1700 #90 tab 08/08/21 Spiriva Respimat 2.5 mcg/actuation 2 puff PO DAILY #4 g NS 11/13/21 solution for inhalation (tiotropium bromide) Allergies Allergy/AdvReac Type Severity Reaction Status Date / Time No Known Allergies Allergy Verified 11/21/21 19:14 [No Known Allergies*] Review of Systems Review of Systems: Yes all other systems are reviewed and are negative PMFSH Past Medical History Medical History (HFpEF) heart failure with preserved ejection fraction Acute on chronic diastolic (congestive) heart failure Aortic stenosis CHF (congestive heart failure) CKD (chronic kidney disease) COPD (chronic obstructive pulmonary disease) HTN (hypertension) Hypoxemia IPF (idiopathic pulmonary fibrosis) Morbid obesity Obesity Paroxysmal atrial fibrillation Restrictive lung disease Surgical History History of surgery on wrist Family History Family History Father Cancer Mother Dementia Social History Social History Household Members: Spouse Housing: House Do you presently have visiting nurse or other home services: No Alcohol intake: never Patient Tobacco Use Status: Never used Tobacco Advance Directives: No Advance Directives Information Provided: No service: No Current occupational status: retired Physical Exam Vital Signs: Vital Signs: Last Vital Signs Temp 97.4 F 11/21/21 19:14 Pulse 64 11/21/21 23:23 Resp 20 11/21/21 23:23 BP 115/65 11/21/21 23:23 Pulse Ox 98 11/21/21 23:23 Oxygen Flow Rate 2 11/21/21 19:14 BMI result Body Mass Index 47.2 Appearance: Alert. Oriented X3. No acute distress. Obese Eyes: No pallor icterus ENT: Pharynx normal. Oral Mucosa moist no active epistaxis clotted blood in right nostril Neck: Normal inspection. Neck supple. CVS: Normal heart rate and rhythm. Pulses normal. Respiratory: No respiratory distress. Equal air entry bilateral, no wheezing/rales/rhonchi Abdomen: Soft and nontender. Bowel sounds are present, Skin: Skin warm and dry. Normal skin color. Normal skin turgor. Extremities: No lower extremity edema. No calf tenderness Neuro: Oriented X 3. MDM - Epistaxis MDM Narrative Medical decision making narrative: Patient with acute epistaxis secondary to use of Xarelto and nasal oxygen no active bleeding at this time patient advised to have humidifier at home Lab Data Attestation: I reviewed the patient's lab results. Result diagrams: 11/21/21 19:28 Labs: Lab Results 11/21/21 Range/Units 19:28 WBC 10.5 (4.8-10.8) X10*3/uL RBC 3.01 L (4.60-5.80) X10*6/uL Hgb 9.8 L (14.0-18.0) g/dl Hct 30.9 L (42.0-52.0) % MCV 102.7 H (80.0-98.0) fL MCH 32.6 (27.0-33.0) pg MCHC 31.7 (31.0-36.0) g/dl RDW 15.9 (11.0-16.0) % Plt Count 258 (160-400) X10*3/uL MPV 10.3 (9.4-12.4) fL Immature Gran % (Auto) 0.9 H (0.0-0.4) % Neut % (Auto) 73.1 H (45-73) % Lymph % (Auto) 12.9 L (20-40) % [place] % (Auto) 9.8 (2-11) % Eos % (Auto) 2.9 (0-4) % Baso % (Auto) 0.4 (0-2) % Lymph # (Auto) 1.4 (1.2-4.9) X10*3/uL [place] # (Auto) 1.0 (0.1-1.2) X10*3/uL Eos # (Auto) 0.3 (0.0-0.4) X10*3/uL Baso # (Auto) 0.0 (0.0-0.2) X10*3/uL Abs Immat Gran (auto) 0.09 H (0.00-0.03) X10*3/uL Absolute Neuts (auto) 7.7 (2.0-8.3) x10*3/uL Absolute Nucleated RBC 0.000 (0.0-0.012) X10*3/uL Nucleated RBC % (auto) 0.0 (0.0-0.2) /100WBC Discharge Plan Discharge Clinical Impression: Acute anterior epistaxis Patient Disposition: Home, Self-Care Instructions: Nosebleed (ED) Additional Instructions: Local care as adv Use humidifier/humidification bottle in the oxygen concentrator Report to ER if recurrence of bleed Prescriptions: No Action propranolol 120 mg capsule,extended release 24 hr 120 mg PO DAILY Qty: 30 4RF amiodarone 200 mg tablet 100 mg PO DAILY Qty: 45 3RF furosemide 20 mg tablet 20 mg PO DAILY 90 Days Qty: 90 3RF Xarelto 15 mg tablet 15 mg PO DAILY@1700 Qty: 90 3RF Rx Instructions: must administer with evening meal Spiriva Respimat 2.5 mcg/actuation mist 2 puff PO DAILY Qty: 4 3RF atorvastatin 20 mg tablet 20 mg PO DAILY 0RF nbmkvzdntf-zujxtdaehnwwu-hqtq 50-325-40 mg tablet 1 tab PO Q6H PRN (Reason: Migraine Headache) 0RF omega-3 fatty acids [Fish Oil Concentrate] 1,000 mg capsule 1,000 mg PO DAILY 0RF multivitamin Tablet 1 tab PO DAILY 0RF cholecalciferol (vitamin D3) 25 mcg (1,000 unit) capsule 25 mcg PO DAILY 0RF allopurinol 100 mg tablet 200 mg PO BEDTIME 0RF losartan 50 mg tablet 50 mg PO DAILY 0RF Interventions: ED Discharge Assessment Last Done: 11/21/21 23:45 Discharge Date/Time: 11/21/21 23:46
--- NOTE | 2021-11-21 22:55 | PC.NURSE ---
at bedside for primary eval.
[2021-11-21 23:23] VITALS: BP 115/65; PULSE 64; RESP 20; O2SAT 98
== END 2021-11-21 23:46 | disposition home or self-care (01) ==
PROVIDERS: Emergency Provider Internal Medicine; PCP Internal Medicine
DX: R04.0 Epistaxis (principal); I13.0 Hypertensive heart and chronic kidney disease with heart failure and stage 1 through stage 4 chronic kidney disease, or unspecified chronic kidney disease; N18.9 Chronic kidney disease, unspecified; I50.33 Acute on chronic diastolic (congestive) heart failure; I48.0 Paroxysmal atrial fibrillation; E66.01 Morbid (severe) obesity due to excess calories; J44.9 Chronic obstructive pulmonary disease, unspecified; Z99.81 Dependence on supplemental oxygen; Z79.02 Long term (current) use of antithrombotics/antiplatelets; Z79.01 Long term (current) use of anticoagulants
CPT/HCPCS: 36415; 85025; 99283

== ENCOUNTER 2021-11-22 10:20 | Emergency (ER) | payer MEDICARE, SELFPAY ==
[2021-11-22 10:26] VITALS: BP 165/90; PULSE 72
--- NOTE | 2021-11-22 10:31 | ED.EPISTAXIS ---
History of Present Illness General Chief Complaint: Epistaxis Stated Complaint: NOSE BLEED,ON XARELTO PER EMS Time Seen by Provider: 11/22/21 10:31 Source: patient Mode of arrival: EMS Limitations: no limitations History of Present Illness HPI Narrative: Patient is a 76-year-old male with a past medical history of diastolic heart failure, CKD, COPD with O2 dependence, idiopathic pulmonary fibrosis, paroxysmal atrial fibrillation on Xarelto. Patient reports that epistaxis to the right nare that began at 07:30 this morning. He had a similar episode of bleeding yesterday for which he was evaluated in the emergency department and the bleeding resolved. He states that typically he gets dried scabs to his nostrils which he picks at to remove and subsequently causes bleeding. He is oxygen dependent with 2 L via nasal cannula, does not have any humidified oxygen at home. Reports otherwise feeling well with no complaints, denies lightheadedness, dizziness, shortness of breath, palpitations, chest pain, difficulty breathing. Subconjunctival hemorrhage to the left eye, denies any hematuria, bloody or dark stools, any other active bleeding. Related Data Home Medications Medication Instructions Recorded Confirmed allopurinol 100 mg tablet 200 mg PO BEDTIME tab 07/25/20 09/25/21 [id number] 1 tab PO Q6H PRN 07/25/20 09/25/21 50 mg-325 mg-40 mg tablet cholecalciferol (vitamin D3) 25 25 mcg PO DAILY 07/25/20 09/25/21 mcg (1,000 unit) capsule multivitamin 1 tab PO DAILY 07/25/20 09/25/21 omega-3 fatty acids 1,000 mg 1,000 mg PO DAILY 07/25/20 09/25/21 capsule (Fish Oil Concentrate) losartan 50 mg tablet 50 mg PO DAILY 01/30/21 09/25/21 atorvastatin 20 mg tablet 20 mg PO DAILY 06/06/21 09/25/21 Previous Rx's Medication Instructions Recorded propranolol 120 mg capsule,24 120 mg PO DAILY #30 cap 09/13/20 hr,extended release amiodarone 200 mg tablet 100 mg PO DAILY #45 tab 03/07/21 furosemide 20 mg tablet 20 mg PO DAILY 90 Days #90 tab 07/05/21 rivaroxaban 15 mg tablet (Xarelto) 15 mg PO DAILY@1700 #90 tab 08/08/21 Spiriva Respimat 2.5 mcg/actuation 2 puff PO DAILY #4 g NS 11/13/21 solution for inhalation (tiotropium bromide) amoxicillin 875 mg-potassium 1 tab PO Q12H 5 Days #10 tab 11/22/21 clavulanate 125 mg tablet Allergies Allergy/AdvReac Type Severity Reaction Status Date / Time No Known Allergies Allergy Verified 11/21/21 19:14 [No Known Allergies*] Review of Systems Review of Systems: Constitutional: No weight loss, fever, chills, weakness or fatigue. HEENT: + Epistaxis. No visual loss, blurred vision, double vision. Skin: No rash or itching. Cardiovascular: No chest pain, chest pressure or chest discomfort. No palpitations or pedal edema. Respiratory: + shortness of breath, reportedly consistent with baseline, no cough or sputum production. Gastrointestinal: No anorexia, nausea, vomiting or diarrhea. No abdominal pain or blood in stool. Genitourinary: No burning micturition. No urinary frequency or incontinence. Neurologic: No headache, dizziness, syncope, ataxia, numbness or tingling in the extremities. Musculoskeletal: No muscle pain, back pain, joint pain or stiffness. Hematologic: + bleeding Lymphatics: No enlarged lymph nodes. Psychiatric:No depression or anxiety. Endocrine: No polyuria or polydipsia. Yes all other systems are reviewed and are negative [facility] Past Medical History Attestation statement: The following information was validated with the patient. Source: old records reviewed Medical History (HFpEF) heart failure with preserved ejection fraction Acute on chronic diastolic (congestive) heart failure Aortic stenosis CHF (congestive heart failure) CKD (chronic kidney disease) COPD (chronic obstructive pulmonary disease) HTN (hypertension) Hypoxemia IPF (idiopathic pulmonary fibrosis) Morbid obesity Obesity Paroxysmal atrial fibrillation Restrictive lung disease Surgical History History of surgery on wrist Family History Family History Father Cancer Mother Dementia Social History Social History Household Members: Spouse Housing: House Do you presently have visiting nurse or other home services: No Alcohol intake: never Patient Tobacco Use Status: Never used Tobacco Use of substances other than those prescribed or required for medical reasons: No Advance Directives: No Advance Directives Information Provided: No service: No Current occupational status: retired Physical Exam Vital Signs: Vital Signs: Last Vital Signs Temp 97.8 F 11/22/21 13:28 Pulse 48 L 11/22/21 13:28 Resp 18 11/22/21 13:28 BP 125/53 L 11/22/21 13:28 Pulse Ox 99 11/22/21 13:28 Oxygen Flow Rate 4 11/22/21 10:40 BMI result Body Mass Index 47.2 Vital signs have been reviewed as normal and appeared to be correct. Blood pressure normal.? Heart rate low, 49..? Respiration rate normal. Temperature normal.? Oxygen saturation normal. Appearance: Alert.?Oriented to person, place and time. No acute distress.?Normal affect. Head: Normocephalic, atraumatic. Eyes: + left subconjunctival hemorrhage. PERRL, 3 mm bilaterally. Visual turner full to confrontation, EOMi.? Ears: Bilateral ear canals clear, TM visible with good cone of light.? Nose: Active epistaxis to right nare, appears to be actively bleeding anterior right nare below septum Mouth/ Throat: Oral mucosa pink and moist without lesions. Pharynx with clotted blood patient able to expectorate. Neck: Normal inspection.? Neck supple.?? CVS: Heart sounds normal. Normal heart rate and rhythm.? Pulses normal.?? Respiratory: No respiratory distress.? Lung sounds clear to auscultation bilaterally?? Abdomen: Soft and non-tender. Skin: Skin warm and dry.? Normal skin color.? Extremities: No lower extremity edema.? Neuro: Moves all extremities spontaneously. Sensation intact bilaterally. No focal neuro deficits. Ambulates with normal steady gait. Course Course Course Narrative: Patient is a 76-year-old male on Xarelto being evaluated for active epistaxis of the right nare. Patient noted to have bradycardia with heart rate ranging from high 40s to 50s, which is reportedly baseline for patient. In comparison to prior vital signs obtained this appears to be true, he is on propranolol, amiodarone, and losartan. Attempted to stop bleeding with topical Afrin, topical cocaine, topical tranexamic acid, and silver nitrate for cauterization, but unable to stop the bleeding. Decision made to inserted a rhinorocket at 1115. Reevaluation(s) Reevaluation #1: CBC today reveals hemoglobin 9.1 and hematocrit 28.7 in comparison to 9.8/30.9 yesterday. Platelet count is normal 245. Coagulation studies consistent with baseline, PT 18.1/INR 1.6/ PTT 41. Plan to observe patient for an hour to assure cessation of bleeding. Will plan for discharge home and follow-up in 3 days for removal of rhino rocket. Will treat with Augmentin course for 5 days. Time: 11:58 Reevaluation #2: No persistent bleeding at this time. Discussed plan of discharge home with patient. Discussed reasons to return to the emergency department including active bleeding, fevers, chills, shortness of breath, difficulty breathing, chest pain, palpitations, dizziness, lightheadedness, nausea, vomiting or any additional symptoms or concerns. Patient is agreeable with this plan of care. Advised he will need to have rhino rocket removed in 3 days. Will provide contact for ENT. In addition to follow-up with PCP. All questions answered, patient agreeable with plan of care. Time: 13:18 [facility] - Epistaxis Medical Records Attestation: I reviewed the patient's medical records. Lab Data Attestation: I reviewed the patient's lab results. Result diagrams: 11/22/21 11:21 11/22/21 11:21 Labs: Lab Results 11/22/21 11/22/21 11/22/21 Range/Units 11:21 11:21 11:21 WBC 8.7 (4.8-10.8) X10*3/uL RBC 2.81 L (4.60-5.80) X10*6/uL Hgb 9.1 L (14.0-18.0) g/dl Hct 28.7 L (42.0-52.0) % MCV 102.1 H (80.0-98.0) fL MCH 32.4 (27.0-33.0) pg MCHC 31.7 (31.0-36.0) g/dl RDW 15.9 (11.0-16.0) % Plt Count 245 (160-400) X10*3/uL MPV 10.1 (9.4-12.4) fL Immature Gran % (Auto) 1.0 H (0.0-0.4) % Neut % (Auto) 76.4 H (45-73) % Lymph % (Auto) 10.3 L (20-40) % [place] % (Auto) 8.9 (2-11) % Eos % (Auto) 3.2 (0-4) % Baso % (Auto) 0.2 (0-2) % Lymph # (Auto) 0.9 L (1.2-4.9) X10*3/uL [place] # (Auto) 0.8 (0.1-1.2) X10*3/uL Eos # (Auto) 0.3 (0.0-0.4) X10*3/uL Baso # (Auto) 0.0 (0.0-0.2) X10*3/uL Abs Immat Gran (auto) 0.09 H (0.00-0.03) X10*3/uL Absolute Neuts (auto) 6.6 (2.0-8.3) x10*3/uL Absolute Nucleated RBC 0.000 (0.0-0.012) X10*3/uL Nucleated RBC % (auto) 0.0 (0.0-0.2) /100WBC PT 18.1 H (9.9-13.0) SEC INR 1.6 H (0.9-1.1) APTT 41.0 H (24.1-38.0) SEC Sodium 134 L (135-145) mmol/L Potassium 4.3 (3.3-5.1) mmol/L Chloride 96 (96-108) mmol/L Carbon Dioxide 32 H (22-29) mmol/L Anion Gap 10 L (12-20) BUN 31 H (9-16) mg/dL Creatinine 1.47 H (0.5-1.4) mg/dL Estim Creat Clear Calc 60.7 Estimated GFR 47 Random Glucose 152 H (60-115) mg/dL Calcium 9.0 (8.4-10.2) mg/dL Discharge Plan Discharge Clinical Impression: Acute anterior epistaxis Patient Disposition: Home, Self-Care Instructions: Nosebleed (ED) Additional Instructions: If you have return of bleeding you should come back to emergency department for evaluation. If you develops fevers, chills, dizziness, lightheadedness, chest pain, palpitations, shortness of breath, difficulty breathing any new symptoms or concerns he should be re-evaluated. The rhino rocket in your right nostril will need to be removed in 3 days. You can contact ENT to try and schedule follow-up appointment or return to the emergency department. Please contact your PCP to schedule follow-up appointment. In addition, it is important to use humidified oxygen and avoid picking at scabs in the nostrils. In addition you have been sent home with a prescription for an antibiotic, Augmentin to take twice a day for 5 days Prescriptions: New amoxicillin-pot clavulanate 875-125 mg tablet 1 tab PO Q12H 5 Days Qty: 10 0RF No Action propranolol 120 mg capsule,extended release 24 hr 120 mg PO DAILY Qty: 30 4RF amiodarone 200 mg tablet 100 mg PO DAILY Qty: 45 3RF furosemide 20 mg tablet 20 mg PO DAILY 90 Days Qty: 90 3RF Xarelto 15 mg tablet 15 mg PO DAILY@1700 Qty: 90 3RF Rx Instructions: must administer with evening meal Spiriva Respimat 2.5 mcg/actuation mist 2 puff PO DAILY Qty: 4 3RF atorvastatin 20 mg tablet 20 mg PO DAILY 0RF [id number]-hsulwnyhrxpdu-igoi 50-325-40 mg tablet 1 tab PO Q6H PRN (Reason: Migraine Headache) 0RF omega-3 fatty acids [Fish Oil Concentrate] 1,000 mg capsule 1,000 mg PO DAILY 0RF multivitamin Tablet 1 tab PO DAILY 0RF cholecalciferol (vitamin D3) 25 mcg (1,000 unit) capsule 25 mcg PO DAILY 0RF allopurinol 100 mg tablet 200 mg PO BEDTIME 0RF losartan 50 mg tablet 50 mg PO DAILY 0RF Referrals: Jeremy Arenas [Physician] - 3 days
[2021-11-22 10:40] VITALS: BP 136/67; PULSE 50; RESP 16; O2SAT 98; BMI 47.2
[2021-11-22 10:46] VITALS: PULSE 49
--- NOTE | 2021-11-22 10:47 | PC.NURSE ---
Baseline 02 at 2lpm, d/t episatxis, cannula placed in mouth at 4lpm at this time, sat 100%, decreased to 3lpm
[2021-11-22] MEDS: Tranexamic Acid 1,000 MG/10 ML VIAL 500 MG INTRANASAL (10:55)
[2021-11-22] MEDS: Cocaine HCl 4 % 4 ML SOLUTION 2 ML TOPICAL (10:55)
[2021-11-22] MEDS: Silver Nitrate Applicator STICK..EA. 1 APPL TOPICAL (10:55)
[2021-11-22] MEDS: Oxymetazoline HCl 0.05 % Nasal 15 ML SPRAY 2 SPRAY NOSTRIL-B (10:56)
[2021-11-22 11:25] LABS: MANUAL DIFF FLAG NO
--- NOTE | 2021-11-22 11:26 | PC.NURSE ---
Provider remains at bedside in attempt to control bleeding to right nare
[2021-11-22 11:28] LABS: Basophils Percent Auto 0.2 % (0-2); Eosinophils Absolute Auto 0.3 X10*3/uL (0.0-0.4); Eosinophils Percent Auto 3.2 % (0-4); Hematocrit 28.7 % (42.0-52.0); Hemoglobin 9.1 g/dl (14.0-18.0); Imm Gran Abs Auto 0.09 X10*3/uL (0.00-0.03); Lymphocytes Absolute Auto 0.9 X10*3/uL (1.2-4.9); Lymphocytes Percent Auto 10.3 % (20-40); Mean Corpuscular HGB Conc 31.7 g/dl (31.0-36.0); Mean Corpuscular Hemoglobin 32.4 pg (27.0-33.0); Mean Corpuscular Volume 102.1 fL (80.0-98.0); Mean Platelet Volume 10.1 fL (9.4-12.4); Monocytes Absolute Auto 0.8 X10*3/uL (0.1-1.2); Monocytes Percent Auto 8.9 % (2-11); Neutrophils Absolute Auto 6.6 x10*3/uL (2.0-8.3); Neutrophils Percent Auto 76.4 % (45-73); Platelet Count 245 X10*3/uL (160-400); Red Blood Count 2.81 X10*6/uL (4.60-5.80); Red Cell Distribution Width 15.9 % (11.0-16.0); White Blood Count 8.7 X10*3/uL (4.8-10.8)
[2021-11-22 11:32] LABS: INTERNATIONAL NORM RATIO 1.6 (0.9-1.1); Prothrombin Time 18.1 SEC (9.9-13.0)
[2021-11-22 11:45] LABS: Anion Gap 10 (12-20); Blood Urea Nitrogen 31 mg/dL (9-16); Carbon Dioxide 32 mmol/L (22-29); Chloride 96 mmol/L (96-108); Creatinine Clr Calc Pharmacy 60.7; Estimated Glomerular Filt Rate 47; Glucose Random 152 mg/dL (60-115); Potassium 4.3 mmol/L (3.3-5.1); Sodium 134 mmol/L (135-145)
[2021-11-22 13:28] VITALS: BP 125/53; PULSE 48; RESP 18; TEMP 36.6; O2SAT 99
== END 2021-11-22 14:30 | disposition home or self-care (01) ==
PROVIDERS: Nurse Practitioner Family; Emergency Provider Emergency Medicine; PCP Internal Medicine
DX: R04.0 Epistaxis (principal); H11.32 Conjunctival hemorrhage, left eye; I13.0 Hypertensive heart and chronic kidney disease with heart failure and stage 1 through stage 4 chronic kidney disease, or unspecified chronic kidney disease; N18.9 Chronic kidney disease, unspecified; I50.33 Acute on chronic diastolic (congestive) heart failure; I48.0 Paroxysmal atrial fibrillation; J44.9 Chronic obstructive pulmonary disease, unspecified; Z79.01 Long term (current) use of anticoagulants; Z99.81 Dependence on supplemental oxygen
CPT/HCPCS: 30901; 36415; 80048; 85025; 85610; 85730; 99284; C9046

== ENCOUNTER 2021-11-23 15:16 | Emergency (ER) | payer MEDICARE, SELFPAY ==
--- NOTE | 2021-11-23 15:24 | ED.EPISTAXIS ---
History of Present Illness General Chief Complaint: Epistaxis Stated Complaint: bleeding from nose and eyes Time Seen by Provider: 11/23/21 15:22 Source: patient and old records reviewed Mode of arrival: EMS Limitations: no limitations History of Present Illness HPI Narrative: packed with 5.5 yesterday R nare on xarelto atraumatic did fine at home until 1 hour [employer] when he tried to use humidified O2 and the patient noted bleeding from nose again Location: Yes right nares Onset/current episode: Yes hour(s) (1 (packed yesterday)) Duration: Yes constant Pertinent past history: Yes hypertension and Yes history of previous nose bleed Context: Yes history of previous nose bleed and Yes other anticoagulant use Associated symptoms: Yes other (bleeding from R eye) Treatment prior to arrival: Yes other (packed yesterday attempt at cautery, sent home on augmentin) Related Data Home Medications Medication Instructions Recorded Confirmed allopurinol 100 mg tablet 200 mg PO BEDTIME tab 07/25/20 09/25/21 [id number]-gomyhufa 1 tab PO Q6H PRN 07/25/20 09/25/21 50 mg-325 mg-40 mg tablet cholecalciferol (vitamin D3) 25 25 mcg PO DAILY 07/25/20 09/25/21 mcg (1,000 unit) capsule multivitamin 1 tab PO DAILY 07/25/20 09/25/21 omega-3 fatty acids 1,000 mg 1,000 mg PO DAILY 07/25/20 09/25/21 capsule (Fish Oil Concentrate) losartan 50 mg tablet 50 mg PO DAILY 01/30/21 09/25/21 atorvastatin 20 mg tablet 20 mg PO DAILY 06/06/21 09/25/21 Previous Rx's Medication Instructions Recorded propranolol 120 mg capsule,24 120 mg PO DAILY #30 cap 09/13/20 hr,extended release amiodarone 200 mg tablet 100 mg PO DAILY #45 tab 03/07/21 furosemide 20 mg tablet 20 mg PO DAILY 90 Days #90 tab 07/05/21 rivaroxaban 15 mg tablet (Xarelto) 15 mg PO DAILY@1700 #90 tab 08/08/21 Spiriva Respimat 2.5 mcg/actuation 2 puff PO DAILY #4 g NS 11/13/21 solution for inhalation (tiotropium bromide) amoxicillin 875 mg-potassium 1 tab PO Q12H 5 Days #10 tab 11/22/21 clavulanate 125 mg tablet Allergies Allergy/AdvReac Type Severity Reaction Status Date / Time No Known Allergies Allergy Verified 11/21/21 19:14 [No Known Allergies*] Review of Systems Review of Systems: Constitutional : No Fever, No Chills ENT/Mouth : No Ear Pain, No Nasal Congestion, positive nose bleed Eyes: No Eye Pain, No Swelling, No Redness Cardiovascular : No Chest Pain, No SOB Respiratory : No Cough, No Sputum Gastrointestinal : No Nausea, No Vomiting, No Diarrhea Genitourinary : No Dysuria, No Hematuria Musculoskeletal : No joint pain, No Myalgias Skin : No Skin Lesions, No rash Neuro : No Weakness, No Numbness, No headache Psych : No Anxiety/Panic, No Depression Heme/Lymph: positive Bleeding,No Lymphadenopathy Endocrine : No Polyuria, No Polydipsia PMFSH Past Medical History Attestation statement: The following information was validated with the patient. Medical History (HFpEF) heart failure with preserved ejection fraction Acute on chronic diastolic (congestive) heart failure Aortic stenosis CHF (congestive heart failure) CKD (chronic kidney disease) COPD (chronic obstructive pulmonary disease) HTN (hypertension) Hypoxemia IPF (idiopathic pulmonary fibrosis) Morbid obesity Obesity Paroxysmal atrial fibrillation Restrictive lung disease Surgical History History of surgery on wrist Family History Family History Father Cancer Mother Dementia Social History Social History Household Members: Spouse Housing: House Do you presently have visiting nurse or other home services: No Alcohol intake: never Patient Tobacco Use Status: Never used Tobacco Advance Directives: No Advance Directives Information Provided: No service: No Current occupational status: retired Physical Exam Vital Signs: Vital Signs: Last Vital Signs Temp 98.2 F 11/23/21 15:58 Pulse 52 11/23/21 15:58 Resp 16 11/23/21 15:58 BP 130/55 L 11/23/21 15:58 Pulse Ox 98 11/23/21 15:58 BMI result Body Mass Index 47.2 Appearance: Alert. Oriented X3. No acute distress. Eyes: Pupils equal, round and reactive to light. ENT: Pharynx normal. R nare packed bleeding around the Nare noted and blood tricking from R lacrimal area Neck: Normal inspection. Neck supple. CVS: Normal heart rate and rhythm. Pulses normal. Respiratory: No respiratory distress. Breath sounds normal. Abdomen: Soft and nontender. Skin: Skin warm and dry. Normal skin color. Normal skin turgor. Extremities: No lower extremity edema. No calf ttp Neuro: Oriented X 3. No motor deficit. No sensory deficit. Course Course Course Narrative: no further bleeding signed out to Dr. Mena still no bleeding will continue to observe in ED MDM - Epistaxis MDM Narrative Medical decision making narrative: 76 yo male with hx of PAF, CKD, HTN on xarelto here with recurrent nose bleed while packed difficult to control yesterday comes in today with bleeding after trying use humidify oxygen today and it started to bleed again at this time will remove packing and reassess to see if he can be cauterized and re-packed. Dispo per results and findings. Procedures Epistaxis Control Time Out Performed: Yes Nostril: Yes right Nose prepped with: Yes oxymetazoline Direct inspection: Yes anterior source identified Direct inspection method: Yes nasal speculum Clots removed by: Yes suction Epistaxis treatment: Yes TXA soaked gauze, Yes silver nitrate cautery and Yes other (removed packing no posterior bleeding noted) Results of treatment: Yes bleeding controlled Complications: Yes none Discharge Plan Discharge Clinical Impression: Acute anterior epistaxis Patient Disposition: Still a Patient Prescriptions: No Action propranolol 120 mg capsule,extended release 24 hr 120 mg PO DAILY Qty: 30 4RF amiodarone 200 mg tablet 100 mg PO DAILY Qty: 45 3RF furosemide 20 mg tablet 20 mg PO DAILY 90 Days Qty: 90 3RF Xarelto 15 mg tablet 15 mg PO DAILY@1700 Qty: 90 3RF Rx Instructions: must administer with evening meal Spiriva Respimat 2.5 mcg/actuation mist 2 puff PO DAILY Qty: 4 3RF atorvastatin 20 mg tablet 20 mg PO DAILY 0RF amoxicillin-pot clavulanate 875-125 mg tablet 1 tab PO Q12H 5 Days Qty: 10 0RF rtiieapskt-lraytybwhydjn-qhyq 50-325-40 mg tablet 1 tab PO Q6H PRN (Reason: Migraine Headache) 0RF omega-3 fatty acids [Fish Oil Concentrate] 1,000 mg capsule 1,000 mg PO DAILY 0RF multivitamin Tablet 1 tab PO DAILY 0RF cholecalciferol (vitamin D3) 25 mcg (1,000 unit) capsule 25 mcg PO DAILY 0RF allopurinol 100 mg tablet 200 mg PO BEDTIME 0RF losartan 50 mg tablet 50 mg PO DAILY 0RF
[2021-11-23] MEDS: Tranexamic Acid 1,000 MG/10 ML VIAL 500 MG INTRANASAL (15:28)
[2021-11-23] MEDS: Silver Nitrate Applicator STICK..EA. 1 APPL TOPICAL (15:29)
[2021-11-23] MEDS: Oxymetazoline HCl 0.05 % Nasal 15 ML SPRAY 2 SPRAY NOSTRIL-B (15:29)
[2021-11-23 15:38] VITALS: BP 117/50; PULSE 97; RESP 21; TEMP 35.9; O2SAT 98; BMI 47.2
[2021-11-23 15:58] VITALS: BP 130/55; PULSE 52; RESP 16; TEMP 36.8; O2SAT 98
[2021-11-23 17:50] VITALS: BP 145/62; PULSE 54; RESP 16; TEMP 36.9; O2SAT 97
[2021-11-23 17:58] LABS: MANUAL DIFF FLAG NO
[2021-11-23 18:06] LABS: Basophils Percent Auto 0.2 % (0-2); Eosinophils Absolute Auto 0.2 X10*3/uL (0.0-0.4); Eosinophils Percent Auto 2.7 % (0-4); Hematocrit 29.3 % (42.0-52.0); Hemoglobin 9.5 g/dl (14.0-18.0); Imm Gran Abs Auto 0.08 X10*3/uL (0.00-0.03); Imm Gran Pct Auto 0.9 % (0.0-0.4); Lymphocytes Absolute Auto 0.8 X10*3/uL (1.2-4.9); Lymphocytes Percent Auto 9.2 % (20-40); Mean Corpuscular HGB Conc 32.4 g/dl (31.0-36.0); Mean Corpuscular Hemoglobin 32.6 pg (27.0-33.0); Mean Corpuscular Volume 100.7 fL (80.0-98.0); Mean Platelet Volume 10.4 fL (9.4-12.4); Monocytes Absolute Auto 0.7 X10*3/uL (0.1-1.2); Neutrophils Absolute Auto 6.9 x10*3/uL (2.0-8.3); Platelet Count 227 X10*3/uL (160-400); Red Blood Count 2.91 X10*6/uL (4.60-5.80); Red Cell Distribution Width 15.6 % (11.0-16.0); White Blood Count 8.8 X10*3/uL (4.8-10.8)
[2021-11-23 18:08] LABS: INTERNATIONAL NORM RATIO 1.6 (0.9-1.1); Prothrombin Time 18.8 SEC (9.9-13.0)
[2021-11-23] MEDS: Cocaine HCl 4 % 4 ML SOLUTION TOPICAL (19:21)
== END 2021-11-23 20:02 | disposition still patient (30) ==
PROVIDERS: Emergency Medicine; Emergency Provider Emergency Medicine Emergency Medical Services; PCP Internal Medicine
DX: R04.0 Epistaxis (principal); Z79.899 Other long term (current) drug therapy
CPT/HCPCS: 30901; 85025; 85610; 99283; C9046

== ENCOUNTER 2021-11-26 11:50 | Inpatient (IN) | payer MEDICARE, SELFPAY ==
--- NOTE | ~2021-11-26 | FL_ITS ---
EXAMINATION: XR FLUOROSCOPY WITH IMAGES CLINICAL INFORMATION: Pacemaker placement COMPARISON: Previous chest x-ray 11/26/2021 TECHNIQUE: Fluoroscopy performed by Dr. Jeff Johnson. Fluoroscopy time: 154 seconds Dose: 98 mgy Images: 3 FINDINGS: Images demonstrate a left subclavian dual chamber pacemaker in satisfactory position. FL/FL guidance in OR IMPRESSION: Fluoroscopy guidance for pacemaker placement.
--- NOTE | ~2021-11-26 | CT_ITS ---
EXAMINATION: CT CHEST WITHOUT CONTRAST CLINICAL INFORMATION: Hypoxia. History of interstitial lung disease. COMPARISON: Previous chest CT May 2021 and chest x-rays most recent 11/26/2021. TECHNIQUE: Multidetector volumetric CT imaging of the chest was done. Axial MIP volume rendering provided. Sagittal and coronal reformatted images were obtained. This CT examination was performed using dose optimization techniques as appropriate, variously including the following: *Automated exposure control *Adjustment of mA and/or kV according to patient size (this includes techniques or standardized protocols for targeted exams where dose is matched to indication/reason for exam; i.e. extremities or head) *Use of iterative reconstruction technique DLP: 254 mGy-cm FINDINGS: LUNGS: There are scattered areas of increased ground-glass attenuation and denser areas of airspace disease and linear scarring or subsegmental atelectasis. This is seen diffusely throughout the lungs. This is greatest in the left upper lobe. This appears significantly increased from May 2021 exam. There may be mild traction bronchiolectasis seen at the lung bases. There are increased peripheral reticular markings seen at the lung bases. MEDIASTINUM: There is diffuse mediastinal lymphadenopathy. Lymph nodes appear slightly increased from prior exam. Largest lymph node is a right precarinal lymph node measuring 1.7 cm in short axis. The heart is enlarged. There is coronary artery calcification. There is no pericardial effusion. The visualized thyroid gland is unremarkable. PLEURA: There are small bilateral pleural effusions. AXILLA: No lymphadenopathy. UPPER ABDOMEN: There are small low-attenuation liver lesions that are stable. Largest lesion measures 1.5 cm in the lateral segment of the left lobe and is suggestive of a cyst. There are small scattered liver calcifications that are stable. OSSEOUS STRUCTURES: There are degenerative changes of the spine. CT/CT chest wo con IMPRESSION: Significant worsening of pulmonary findings with new areas of ground-glass attenuation and denser airspace disease, linear scarring or atelectasis throughout the lungs. Post COVID fibrotic changes should be considered. Differential would include other viral pneumonia, nonspecific interstitial pneumonitis, changes related to collagen vascular disease or drug toxicity. There are small bilateral pleural effusions and the heart is enlarged. Some element of mild CHF should also be considered. Fleischner guidelines were followed.
--- NOTE | ~2021-11-26 | XR_ITS ---
EXAMINATION: XR CHEST CLINICAL INFORMATION: Cough. COMPARISON: Chest 11/30/2021 TECHNIQUE: Frontal view of the chest was obtained. FINDINGS: The lungs are well-expanded with patchy airspace opacities in both lungs minimally improved in density and size. The heart size is enlarged. The pulmonary vascularity appears normal. Dual pacer electrodes are in right atrium and right ventricle, stable. No gross bony abnormality. XR/XR chest 1V IMPRESSION: Slightly improved bilateral airspace opacities. No change in pacemaker electrodes from previous study.
--- NOTE | ~2021-11-26 | XR_ITS ---
EXAMINATION: XR CHEST CLINICAL INFORMATION: Shortness of breath COMPARISON: Previous chest x-ray most recent May 2021 TECHNIQUE: Frontal view of the chest was obtained. FINDINGS: The cardiac silhouette is slightly enlarged. Hilar and mediastinal contours are unremarkable. There is bilateral central airspace disease. There may be a right pleural effusion. There is no pneumothorax. Degenerative changes of the spine. XR/XR chest 1V IMPRESSION: Enlarged cardiac silhouette. Bilateral central airspace disease and right pleural effusion. Differential would include pulmonary edema and pneumonia. Clinical correlation recommended.
--- NOTE | ~2021-11-26 | XR_ITS ---
EXAMINATION: XR CHEST CLINICAL INFORMATION: Post pacemaker placement COMPARISON: Previous chest x-ray November 2021 TECHNIQUE: Frontal view of the chest was obtained. FINDINGS: The cardiac and mediastinal contours are stable. There is a new left subclavian dual chamber pacemaker in satisfactory position. There is no pneumothorax. There is bilateral airspace disease similar to previous exam. There is no significant pleural effusion. There are degenerative changes of the spine. XR/XR chest 1V IMPRESSION: Satisfactory position of left subclavian dual chamber pacemaker. No pneumothorax.
--- NOTE | 2021-11-26 11:54 | ECG_ITS ---
Test Reason : SOB Blood Pressure : / mmHG Vent. Rate : 043 BPM Atrial Rate : 000 BPM P-R Int : 000 ms QRS Dur : 102 ms QT Int : 472 ms P-R-T Axes : 000 -20 059 degrees QTc Int : 398 ms Poor data quality Possible Atrial fibrillation with slow ventricular response Possible Anterior infarct , age undetermined Abnormal ECG When compared with ECG of 08-JUN-2021 01:35, No significant change was found Referred By: Gilson Solis Electronically Signed By:ELENITA GORE MD
--- NOTE | 2021-11-26 12:01 | ED.SOB ---
HPI - SOB/Dyspnea General Chief Complaint: Dyspnea Stated Complaint: SOB, 78% HOME 2LPM, 98% 10LPM/NRB PER EMS Time Seen by Provider: 11/26/21 11:52 Source: patient and EMS Mode of arrival: EMS Limitations: no limitations History of Present Illness HPI Narrative: this is a 76 years old male with history of paroxysmal AFib anticoagulated with DOAG, morbid obesity, idiopathic pulmonary fibrosis on home O2, congestive heart failure presented to the emergency room via ambulance with chief complaint of shortness of breath he was found by the EMS with an O2 sat of 75% he was placed on high-flow oxygen MD elicited complaint: shortness of breath Pertinent past history: other ( CHF/ idiopathic pulmonary fibrosis) Onset (ago): day(s) (1) Severity: moderate Exacerbating factors: lying flat Relieving factors: oxygen Known history of: congestive heart failure and other (pulmunary fibrosis) Associated symptoms: denies other symptoms Related Data Home oxygen amount: 2 liters Home Medications Medication Instructions Recorded Confirmed allopurinol 100 mg tablet 200 mg PO BEDTIME tab 07/25/20 09/25/21 aoeaxkztfj-txclgpuejxfov-ybwhpeiy 1 tab PO Q6H PRN 07/25/20 09/25/21 50 mg-325 mg-40 mg tablet cholecalciferol (vitamin D3) 25 25 mcg PO DAILY 07/25/20 09/25/21 mcg (1,000 unit) capsule multivitamin 1 tab PO DAILY 07/25/20 09/25/21 omega-3 fatty acids 1,000 mg 1,000 mg PO DAILY 07/25/20 09/25/21 capsule (Fish Oil Concentrate) losartan 50 mg tablet 50 mg PO DAILY 01/30/21 09/25/21 atorvastatin 20 mg tablet 20 mg PO DAILY 06/06/21 09/25/21 Previous Rx's Medication Instructions Recorded propranolol 120 mg capsule,24 120 mg PO DAILY #30 cap 09/13/20 hr,extended release amiodarone 200 mg tablet 100 mg PO DAILY #45 tab 03/07/21 furosemide 20 mg tablet 20 mg PO DAILY 90 Days #90 tab 07/05/21 rivaroxaban 15 mg tablet (Xarelto) 15 mg PO DAILY@1700 #90 tab 08/08/21 Spiriva Respimat 2.5 mcg/actuation 2 puff PO DAILY #4 g NS 11/13/21 solution for inhalation (tiotropium bromide) amoxicillin 875 mg-potassium 1 tab PO Q12H 5 Days #10 tab 11/22/21 clavulanate 125 mg tablet Allergies Allergy/AdvReac Type Severity Reaction Status Date / Time No Known Allergies Allergy Verified 11/26/21 12:10 [No Known Allergies*] Review of Systems Constitutional: Constitutional: Reports no additional constitutional complaints ENT: Reports system reviewed and no additional complaints, except as documented Cardiovascular: Cardiovascular: Denies chest pain, Denies chest pain at rest, Denies chest pain with activity and Reports dyspnea Respiratory: Respiratory: Reports dyspnea Gastrointestinal: Gastrointestinal: Denies constipation, Denies diarrhea and Denies loose stools Musculoskeletal: Musculoskeletal: Reports no additional musculoskeletal complaints Integumentary/Breasts: Skin/Breast: Reports system reviewed and no additional complaints, except as docu Neurologic: Reports system reviewed and no additional complaints, except as documented PMFSH Past Medical History Medical History (HFpEF) heart failure with preserved ejection fraction Acute on chronic diastolic (congestive) heart failure Aortic stenosis CHF (congestive heart failure) CKD (chronic kidney disease) COPD (chronic obstructive pulmonary disease) HTN (hypertension) Hypoxemia IPF (idiopathic pulmonary fibrosis) Morbid obesity Obesity Paroxysmal atrial fibrillation Restrictive lung disease Surgical History History of surgery on wrist Family History Family History Father Cancer Mother Dementia Social History Social History Household Members: Spouse Housing: House Do you presently have visiting nurse or other home services: No Alcohol intake: never Patient Tobacco Use Status: Never used Tobacco Advance Directives: Yes Advance Directives on File: Yes Advance Directives Date on File: 06/08/21 service: No Current occupational status: retired Physical Exam Vital Signs: Vital Signs: Last Vital Signs Temp 96.2 F L 11/26/21 12:10 Pulse 41 L 11/26/21 13:34 Resp 18 11/26/21 13:34 BP 144/58 H 11/26/21 13:34 Pulse Ox 99 11/26/21 13:34 Oxygen Flow Rate 2 11/26/21 12:10 BMI result Body Mass Index 49.0 Const: General: cooperative, well developed and alert Orientation/consciousness: patient oriented x3 HENMT: Other: examination of the head eyes Ear Nose and Throat shows packing in the right nostril Head: Yes normal to inspection Face and sinus: Yes normal facial exam Neck: Neck: Yes normal visual inspection and Yes full ROM Chest: Chest palpation & inspection: normal inspection of the chest Resp: Effort & Inspection: normal respiratory effort Auscultation: clear to auscultation bilaterally Cardio: Rate: regular rate Rhythm: regular rhythm GI: Inspection: Yes normal to inspection Palpation (GI): Soft to palpation, not firm, nontender and no guarding Skin: General skin exam: no rashes or lesions noted, elasticity normal and turgor normal Lesions: no lesions Rashes: no rashes Neuro: General: patient oriented x3 Course Reevaluation(s) Reevaluation #1: Improving much,CXR c/w CHF pleural effusion present,got IV lasix,notified hospitalist Perry Time: 13:55 MDM - SOB/Dyspnea Lab Data Result diagrams: 11/26/21 12:24 11/26/21 12:24 Labs: Lab Results 11/26/21 11/26/21 11/26/21 Range/Units 12:24 12:24 12:24 WBC 8.0 (4.8-10.8) X10*3/uL RBC 2.80 L (4.60-5.80) X10*6/uL Hgb 9.0 L (14.0-18.0) g/dl Hct 28.4 L (42.0-52.0) % MCV 101.4 H (80.0-98.0) fL MCH 32.1 (27.0-33.0) pg MCHC 31.7 (31.0-36.0) g/dl RDW 15.6 (11.0-16.0) % Plt Count 203 (160-400) X10*3/uL MPV 10.6 (9.4-12.4) fL Immature Gran % (Auto) 1.6 H (0.0-0.4) % Neut % (Auto) 77.0 H (45-73) % Lymph % (Auto) 13.1 L (20-40) % [place] % (Auto) 6.6 (2-11) % Eos % (Auto) 1.6 (0-4) % Baso % (Auto) 0.1 (0-2) % Lymph # (Auto) 1.1 L (1.2-4.9) X10*3/uL [place] # (Auto) 0.5 (0.1-1.2) X10*3/uL Eos # (Auto) 0.1 (0.0-0.4) X10*3/uL Baso # (Auto) 0.0 (0.0-0.2) X10*3/uL Abs Immat Gran (auto) 0.13 H (0.00-0.03) X10*3/uL Absolute Neuts (auto) 6.2 (2.0-8.3) x10*3/uL Absolute Nucleated RBC 0.000 (0.0-0.012) X10*3/uL Nucleated RBC % (auto) 0.0 (0.0-0.2) /100WBC PT 19.3 H (9.9-13.0) SEC INR 1.7 H (0.9-1.1) Sodium 126 L (135-145) mmol/L Potassium 4.7 (3.3-5.1) mmol/L Chloride 88 L (96-108) mmol/L Carbon Dioxide 34 H (22-29) mmol/L Anion Gap 9 L (12-20) BUN 22 H (9-16) mg/dL Creatinine 1.18 (0.5-1.4) mg/dL Estim Creat Clear Calc 77.3 Estimated GFR > 60 Random Glucose 207 H D (60-115) mg/dL Calcium 8.6 (8.4-10.2) mg/dL Total Bilirubin 0.9 (0.0-1.0) mg/dL AST 24 (5-37) U/L ALT 13 (0-40) U/L Alkaline Phosphatase 111 (39-117) U/L Troponin I High Sens (<3.5-35.0) ng/L B-Natriuretic Peptide (<100) pg/mL Total Protein 6.7 (6.5-8.0) g/dL Albumin 3.5 (3.5-5.0) g/dL COVID-19 (LADY) (Negative) COVID-19 Clin Com 11/26/21 11/26/21 Range/Units 12:24 12:24 WBC (4.8-10.8) X10*3/uL RBC (4.60-5.80) X10*6/uL Hgb (14.0-18.0) g/dl Hct (42.0-52.0) % MCV (80.0-98.0) fL MCH (27.0-33.0) pg MCHC (31.0-36.0) g/dl RDW (11.0-16.0) % Plt Count (160-400) X10*3/uL MPV (9.4-12.4) fL Immature Gran % (Auto) (0.0-0.4) % Neut % (Auto) (45-73) % Lymph % (Auto) (20-40) % [place] % (Auto) (2-11) % Eos % (Auto) (0-4) % Baso % (Auto) (0-2) % Lymph # (Auto) (1.2-4.9) X10*3/uL [place] # (Auto) (0.1-1.2) X10*3/uL Eos # (Auto) (0.0-0.4) X10*3/uL Baso # (Auto) (0.0-0.2) X10*3/uL Abs Immat Gran (auto) (0.00-0.03) X10*3/uL Absolute Neuts (auto) (2.0-8.3) x10*3/uL Absolute Nucleated RBC (0.0-0.012) X10*3/uL Nucleated RBC % (auto) (0.0-0.2) /100WBC PT (9.9-13.0) SEC INR (0.9-1.1) Sodium (135-145) mmol/L Potassium (3.3-5.1) mmol/L Chloride (96-108) mmol/L Carbon Dioxide (22-29) mmol/L Anion Gap (12-20) BUN (9-16) mg/dL Creatinine (0.5-1.4) mg/dL Estim Creat Clear Calc Estimated GFR Random Glucose (60-115) mg/dL Calcium (8.4-10.2) mg/dL Total Bilirubin (0.0-1.0) mg/dL AST (5-37) U/L ALT (0-40) U/L Alkaline Phosphatase (39-117) U/L Troponin I High Sens 3.7 (<3.5-35.0) ng/L B-Natriuretic Peptide 370 H (<100) pg/mL Total Protein (6.5-8.0) g/dL Albumin (3.5-5.0) g/dL COVID-19 (LADY) Negative (Negative) COVID-19 Clin Com See Note Imaging Data Chest x-ray: Radiologist's impression: XR CHEST CLINICAL INFORMATION: Shortness of breath COMPARISON: Previous chest x-ray most recent May 2021 TECHNIQUE: Frontal view of the chest was obtained. FINDINGS: The cardiac silhouette is slightly enlarged. Hilar and mediastinal contours are unremarkable. There is bilateral central airspace disease. There may be a right pleural effusion. There is no pneumothorax. Degenerative changes of the spine. XR/XR chest 1V IMPRESSION: Enlarged cardiac silhouette. Bilateral central airspace disease and right pleural effusion. Differential would include pulmonary edema and pneumonia. Clinical correlation recommended. Dictated By: Tasha Rosas MD Signed By: <Electronically signed by Tasha Rosas MD in OV> 11/26/21 1318 DD/ 1256 ECG Data Attestation: I personally reviewed and interpreted this ECG as follows: ECG interpretation date: 11/26/21 Pacemaker model: Atrial fibrillation 43 Discharge Plan Discharge Clinical Impression: Acute dyspnea, Atrial fibrillation with slow ventricular response, CHF (congestive heart failure), Chronic hyponatremia Patient Disposition: Admitted As Inpatient
[2021-11-26 12:10] VITALS: BP 129/54; BP 150/80; PULSE 43; PULSE 45; RESP 20; TEMP 35.7; O2SAT 78; O2SAT 98; BMI 49.0
[2021-11-26 12:17] LABS: ABG Refer to POC result
[2021-11-26 12:29] LABS: MANUAL DIFF FLAG NO
[2021-11-26 12:32] LABS: Basophils Percent Auto 0.1 % (0-2); Eosinophils Absolute Auto 0.1 X10*3/uL (0.0-0.4); Eosinophils Percent Auto 1.6 % (0-4); Hematocrit 28.4 % (42.0-52.0); Imm Gran Abs Auto 0.13 X10*3/uL (0.00-0.03); Imm Gran Pct Auto 1.6 % (0.0-0.4); Lymphocytes Absolute Auto 1.1 X10*3/uL (1.2-4.9); Lymphocytes Percent Auto 13.1 % (20-40); Mean Corpuscular HGB Conc 31.7 g/dl (31.0-36.0); Mean Corpuscular Hemoglobin 32.1 pg (27.0-33.0); Mean Corpuscular Volume 101.4 fL (80.0-98.0); Mean Platelet Volume 10.6 fL (9.4-12.4); Monocytes Absolute Auto 0.5 X10*3/uL (0.1-1.2); Monocytes Percent Auto 6.6 % (2-11); Neutrophils Absolute Auto 6.2 x10*3/uL (2.0-8.3); Platelet Count 203 X10*3/uL (160-400); Red Cell Distribution Width 15.6 % (11.0-16.0)
[2021-11-26 12:53] LABS: Alanine Aminotransferase 13 U/L (0-40); Albumin Level 3.5 g/dL (3.5-5.0); Alkaline Phosphatase 111 U/L (39-117); Anion Gap 9 (12-20); Aspartate Amino Transferase 24 U/L (5-37); Bilirubin Total 0.9 mg/dL (0.0-1.0); Blood Urea Nitrogen 22 mg/dL (9-16); Calcium 8.6 mg/dL (8.4-10.2); Carbon Dioxide 34 mmol/L (22-29); Chloride 88 mmol/L (96-108); Creatinine Clr Calc Pharmacy 77.3; Estimated Glomerular Filt Rate > 60; Glucose Random 207 mg/dL (60-115); Potassium 4.7 mmol/L (3.3-5.1); Sodium 126 mmol/L (135-145); Total Protein 6.7 g/dL (6.5-8.0)
[2021-11-26 12:56] LABS: COVID-19 Test Negative (Negative); IDNOW Serial# 16C4AD1C
[2021-11-26 12:58] LABS: B Type Natriuretic Peptide 370 pg/mL (<100); Troponin-I High Sensitivity 3.7 ng/L (<3.5-35.0)
[2021-11-26 13:04] LABS: INTERNATIONAL NORM RATIO 1.7 (0.9-1.1); Prothrombin Time 19.3 SEC (9.9-13.0)
[2021-11-26 13:34] VITALS: BP 144/58; PULSE 41; RESP 18; O2SAT 99
[2021-11-26] MEDS: Furosemide 40 MG/4 ML VIAL IVPUSH ×2 (13:35→18:44)
--- NOTE | 2021-11-26 14:08 | PHA.MEDREC ---
Pharmacy Consult ? Medication Reconciliation Pharmacy has completed the medication reconciliation. Spoke with patients . Pt took all morning medications. Patient has 2 tablets ( 1 day) left of augmentin.
[2021-11-26 14:32] VITALS: BP 133/71; PULSE 42; RESP 19; O2SAT 93
--- NOTE | 2021-11-26 14:36 | PM.IMHP ---
History of Present Illness Date of Service: 11/26/21 Chief Complaint: hypoxia This is a 76 year old male with a PMH of HFpEF, ILD with chronic resp. failure with hypoxia on 1L at home, morbid obesity, PAF - on Xarelto + Amiodarone, who presents to the hospital with complaints of hypoxia and progressive shortness of breath with exertion of several days duration. (Of note, the patient was in the [facility] ED x 3 last week, due to a nose bleed and currently has a rhino rocket in his R nare). The patient reports that he was previously able to ambulate in his home without much issues, but now endorses feeling short of breath after a few steps. Furthermore, he reports checking his pulse ox at home and reports that it was in the 70s with exertion. He reports a chronic cough, unchanged. He denies any fevers or chills. He denies any palp or chest pain. He is unsure if he has gained weight, but does report orthopnea, LE edema. He reports compliance with his diuretic dosing but unsure if he follows a low salt diet. In the ED, the patient was noted to have an elevated bnp of 300 (normally in the 100s). His chest imaging revealed a new R pleural effusion and bilateral central airspace disease. His oxygen saturation, which was 78% when the paramedics found him, improved to the 90s on 100% NRM and he is now tolerating 3-4L by NC. He has been given IV lasix but remains symptomatic and hence will be admitted for further treatment. Review of Systems Review of Systems: negative except HPI [facility] Medical History (HFpEF) heart failure with preserved ejection fraction Acute on chronic diastolic (congestive) heart failure Aortic stenosis CHF (congestive heart failure) CKD (chronic kidney disease) COPD (chronic obstructive pulmonary disease) HTN (hypertension) Hypoxemia IPF (idiopathic pulmonary fibrosis) Morbid obesity Obesity Paroxysmal atrial fibrillation Restrictive lung disease Family History Father Cancer Mother Dementia Surgical History History of surgery on wrist Social History Household Members: Spouse Housing: House Do you presently have visiting nurse or other home services: No Alcohol intake: never Patient Tobacco Use Status: Never used Tobacco Advance Directives: Yes Advance Directives on File: Yes Advance Directives Date on File: 06/08/21 service: No Current occupational status: retired Meds Allergies Allergy/AdvReac Type Severity Reaction Status Date / Time No Known Allergies Allergy Verified 11/26/21 12:10 [No Known Allergies*] Active Medications: Current Medications Acetaminophen (Acetaminophen 325 Mg Tablet) 650 mg PO Q6H PRN PRN Reason: Pain, Mild (Pain Scale 1-3) Allopurinol (Allopurinol 100 Mg Tablet) 200 mg PO BEDTIME [facility]ER Atorvastatin Calcium (Atorvastatin Calcium 20 Mg Tablet) 20 mg PO DAILY [facility] Furosemide (Furosemide 40 Mg/4 Ml Vial) 40 mg IVPUSH BID@0900,1800 MARIFER; Protocol Losartan Potassium (Losartan Potassium 50 Mg Tablet) 50 mg PO DAILY MARIFER; Protocol Multivitamins/Vitamin C (Multivitamin Tablet) 1 tab PO DAILY [facility] Non-Formulary Medication (Tiotropium [place] [Spiriva Respimat]) 2 puff PO DAILY [facility]IFER Ondansetron HCl (Ondansetron Hcl 4 Mg/2 Ml Vial) 4 mg IVPUSH Q8H PRN PRN Reason: Nausea and Vomiting Pharmacy Consult (Consult Rx Perform Med Rec) 1 each MISCELLANE ONCE PRN PRN Reason: Consult order Sodium Chloride (0.9 % Sodium Chloride Flush 3 Ml Syringe) 3 ml IVFLUSH QSHIFT [facility] Vitamin D (Cholecalciferol (Vitamin D3) 25 Mcg Tablet) 25 mcg PO DAILY [facility] Home Medications Medication Instructions Recorded Confirmed Last Taken Type allopurinol 100 mg tablet 200 mg PO BEDTIME tab 07/25/20 11/26/21 11/25/21 History jptrwhinmi-vearnwlmvahqj-fwcbpjlt 1 tab PO Q6H PRN 07/25/20 11/26/21 11/26/21 History 50 mg-325 mg-40 mg tablet cholecalciferol (vitamin D3) 25 25 mcg PO DAILY 07/25/20 11/26/21 11/26/21 History mcg (1,000 unit) capsule multivitamin 1 tab PO DAILY 07/25/20 11/26/21 11/26/21 History losartan 50 mg tablet 50 mg PO DAILY 01/30/21 11/26/21 11/26/21 History atorvastatin 20 mg tablet 20 mg PO DAILY 06/06/21 11/26/21 11/26/21 History amoxicillin 875 mg-potassium 1 tab PO BID 11/26/21 11/26/21 11/26/21 History clavulanate 125 mg tablet furosemide 20 mg tablet 20 mg PO DAILY@1700 11/26/21 11/26/21 11/25/21 History omega 9-ion-wgl-fish oil 1,200 mg 1 cap PO DAILY 11/26/21 11/26/21 11/26/21 History (144 mg-216 mg) capsule (Fish Oil) propranolol 60 mg tablet 1 tab PO BID 11/26/21 11/26/21 11/26/21 History Physical Exam Vital Signs and Narrative: Vital Signs: Last Vital Signs Temp 96.2 F L 11/26/21 12:10 Pulse 42 L 11/26/21 14:32 Resp 19 11/26/21 14:32 BP 133/71 11/26/21 14:32 Pulse Ox 93 11/26/21 14:32 Oxygen Flow Rate 2 11/26/21 12:10 BMI result Body Mass Index 49.0 Const: Other: Constitutional - Awake and Alert, appears comfortable with O2 Eyes - PERRLA, EOMI Cardiovascular - S1S2, RRR, +bilaterally pitting edema; JVD difficult to ascertain due to body habitus Respiratory - mild tachypnea with shallow breathing, saturations in the 90s on NC Gastrointestinal - NT / ND; +BS; No rebound or guarding - No CVA tenderness Extremities - no calf tenderness bilaterally Musculoskeletal - Normal inspection, normal ROM Skin - Warm/Dry Neurological - Alert & oriented x3, No focal deficit Psychological - Appropriate affect Results Labs CBC and Chem 7: 11/26/21 12:24 11/26/21 12:24 Labs: Laboratory Results - last 24 hr 11/26/21 11/26/21 11/26/21 12:24 12:24 12:24 MCV 101.4 H MCH 32.1 MCHC 31.7 RDW 15.6 Plt Count 203 MPV 10.6 Immature Gran % (Auto) 1.6 H Neut % (Auto) 77.0 H Lymph % (Auto) 13.1 L [place] % (Auto) 6.6 Eos % (Auto) 1.6 Baso % (Auto) 0.1 Lymph # (Auto) 1.1 L [place] # (Auto) 0.5 Eos # (Auto) 0.1 Baso # (Auto) 0.0 Abs Immat Gran (auto) 0.13 H Absolute Neuts (auto) 6.2 Absolute Nucleated RBC 0.000 Nucleated RBC % (auto) 0.0 PT 19.3 H INR 1.7 H Anion Gap 9 L Estim Creat Clear Calc 77.3 Estimated GFR > 60 Random Glucose 207 H D Calcium 8.6 Total Bilirubin 0.9 AST 24 ALT 13 Alkaline Phosphatase 111 B-Natriuretic Peptide Total Protein 6.7 Albumin 3.5 COVID-19 (LADY) COVID-19 Clin Com 11/26/21 11/26/21 12:24 12:24 MCV MCH MCHC RDW Plt Count MPV Immature Gran % (Auto) Neut % (Auto) Lymph % (Auto) [place] % (Auto) Eos % (Auto) Baso % (Auto) Lymph # (Auto) [place] # (Auto) Eos # (Auto) Baso # (Auto) Abs Immat Gran (auto) Absolute Neuts (auto) Absolute Nucleated RBC Nucleated RBC % (auto) PT INR Anion Gap Estim Creat Clear Calc Estimated GFR Random Glucose Calcium Total Bilirubin AST ALT Alkaline Phosphatase B-Natriuretic Peptide 370 H Total Protein Albumin COVID-19 (LADY) Negative COVID-19 Clin Com See Note Imaging Radiologist's Impressions: Impressions Chest X-Ray 11/26/21 12:56 IMPRESSION: Enlarged cardiac silhouette. Bilateral central airspace disease and right pleural effusion. Differential would include pulmonary edema and pneumonia. Clinical correlation recommended. Assessment and Plan (1) Acute on chronic respiratory failure with hypoxia: Status: Acute Plan This is a 76 year old M with a PMH of HFpEF, ILD with chronic resp. failure with hypoxia on 1L at home, morbid obesity, PAF - on Xarelto + Amiodarone who presents to the hospital with several days of progressive dyspnea and hypoxia, particularly with exertion. 1. Acute on Chronic Respiratory Failure with hypoxia multifactorial -- partially due to acute CHF, but question if also due to R nares with rhino-rocket; Baseline 1L, now on 3-4L by NC continue with intermittent pulse ox monitoring 2. Acute on Chronic HFpEF clinically in fluid overload as evidenced by swelling + pleural effusion + elevated BNP on lasix 20mg daily at home, will give IV lasix 40mg BID I/O; low salt diet cardiology consult 3. Bradycardia HR in the 40s on the telemonitor, while awake no symptoms at this time; during previous hospitalization, he had similar findings and his bb and amio were held; will do the same now and ask cardiology input 4. Chronic Respiratory failure continue his baseline inhalers 5. HTN continue baseline meds 6. PAF HR in the 40s hold amio / bb 7. MARY not on cpap at home 8. Morbid Obesity likely contributing to worsening of his respiratory/cardiac conditions weight loss Full Code DVT pptx, Xarelto In light of the patients baseline respiratory failure, copd, a. fib, chf -- I anticipate a 2 midnight stay for his acute CHF exacerbation which will require treament with IV lasix and monitoring response. Quality Stroke Does the patient have a stroke diagnosis?: No VTE Prior VTE?: No VTE Risk Level:: Medical - moderate - high VTE Device Contraindication: Treatment Not Indicated VTE Drug Contraindication: N/A - Med Ordered
[2021-11-26] MEDS: Rivaroxaban 20 MG TABLET PO (18:44)
[2021-11-26] MEDS: allopurinoL 100 MG TABLET 200 MG PO (21:47)
[2021-11-27 06:40] LABS: Hematocrit 31.2 % (42.0-52.0); Hemoglobin 9.9 g/dl (14.0-18.0); Mean Corpuscular HGB Conc 31.7 g/dl (31.0-36.0); Mean Platelet Volume 10.9 fL (9.4-12.4); Platelet Count 214 X10*3/uL (160-400); Red Blood Count 3.09 X10*6/uL (4.60-5.80); Red Cell Distribution Width 15.4 % (11.0-16.0); White Blood Count 9.6 X10*3/uL (4.8-10.8)
[2021-11-27 06:48] LABS: Anion Gap 13 (12-20); Blood Urea Nitrogen 22 mg/dL (9-16); Calcium 9.2 mg/dL (8.4-10.2); Carbon Dioxide 34 mmol/L (22-29); Chloride 88 mmol/L (96-108); Creatinine Clr Calc Pharmacy 81.5; Estimated Glomerular Filt Rate > 60; Glucose Random 102 mg/dL (60-115); Potassium 4.5 mmol/L (3.3-5.1); Sodium 130 mmol/L (135-145)
[2021-11-27] MEDS: 0.9 % Sodium Chloride Flush 3 ML SYRINGE IVFLUSH ×2 (07:26)
--- NOTE | 2021-11-27 07:32 | PC.NURSE ---
this health underwriter assumed care of this pt at 0700. pt alert and oriented, denies pain. pt sitting up in recliner eating breakfast. pt awaiting bed assignment.
[2021-11-27 07:49] VITALS: PULSE 46; RESP 20; O2SAT 95
--- NOTE | 2021-11-27 08:18 | HO.PM.IMPN ---
Subjective Subjective Date of Service: 11/27/21 Interval History: LATE ENTRY FOR 11/27/21 Pt seen and examined this AM He is feeling about the same Still with swelling and shortness of breath unable to lay supine Review of Systems negative except above Physical Exam Vital Signs: Vital Signs: Last Vital Signs Temp 98 F 11/28/21 07:00 Pulse 50 11/28/21 07:00 Resp 18 11/28/21 07:00 BP 98/52 L 11/28/21 07:00 Pulse Ox 99 11/28/21 07:00 Oxygen Flow Rate 2 11/26/21 12:10 BMI result Body Mass Index 49.0 Const: Other: General - no acute distress, appears comfortable, remains significantly fluid overloaded with anasarca Cardiovascular - regular rate and rhythm, S1-S2, +b/l pitting edema Lungs - distant breath sounds Abdomen - soft, nontender, no rebound or guarding Extremities - no edema bilaterally Neuro - awake and alert, no focal deficits Objective Data Active Medications Acetaminophen (Acetaminophen 325 Mg Tablet) 650 mg PO Q6H PRN PRN Reason: Pain, Mild (Pain Scale 1-3) Allopurinol (Allopurinol 100 Mg Tablet) 200 mg PO BEDTIME [facility] Last Admin: 11/27/21 22:19 Dose: 200 mg Documented by: CHARITO Atorvastatin Calcium (Atorvastatin Calcium 20 Mg Tablet) 20 mg PO DAILY [facility] Last Admin: 11/27/21 11:00 Dose: 20 mg Documented by: SAMANTHA Furosemide 200 mg/ Sodium (Chloride) 100 mls @ 2.5 mls/hr IVCONT .Q24H [facility] Last Admin: 11/27/21 13:07 Dose: 5 mg/hr, 2.5 mls/hr Documented by: SAMANTHA Losartan Potassium (Losartan Potassium 50 Mg Tablet) 50 mg PO DAILY [facility]; Protocol Last Admin: 11/27/21 11:01 Dose: 50 mg Documented by: SAMANTHA Multivitamins/Vitamin C (Multivitamin Tablet) 1 tab PO DAILY [facility] Last Admin: 11/27/21 11:01 Dose: 1 tab Documented by: SAMANTHA Ondansetron HCl (Ondansetron Hcl 4 Mg/2 Ml Vial) 4 mg IVPUSH Q8H PRN PRN Reason: Nausea and Vomiting Pharmacy Consult (Consult Rx Perform Med Rec) 1 each MISCELLANE ONCE PRN PRN Reason: Consult order Rivaroxaban (Rivaroxaban 20 Mg Tablet) 20 mg PO DAILY@1800 [facility] Last Admin: 11/27/21 17:25 Dose: 20 mg Documented by: CHARITO Sodium Chloride (0.9 % Sodium Chloride Flush 3 Ml Syringe) 3 ml IVFLUSH QSHIFT [facility] Last Admin: 11/28/21 01:09 Dose: Not Given Documented by: PAIGE Non-Admin Reason: IV Running Tiotropium Austin (Tiotropium Austin 18 Mcg Cap.W.Dev) 1 puff INHALE RDAILY [facility] Last Admin: 11/27/21 07:46 Dose: 1 puff Documented by: MELINDA Vitamin D (Cholecalciferol (Vitamin D3) 25 Mcg Tablet) 25 mcg PO DAILY [facility] Last Admin: 11/27/21 11:01 Dose: 25 mcg Documented by: SAMANTHA Labs CBC & Chem 7: 11/27/21 06:11 11/28/21 05:28 Labs: Laboratory Results - last 24 hr 11/26/21 11/27/21 11/28/21 12:10 06:11 05:28 O2 Saturation 96.0 ABG pH at Pt Temp 7.39 ABG pCO2 at Pt Temp 63 H* ABG pO2 at Pt Temp 84 ABG HCO3 39 H ABG Base Excess (Actual) 11.9 Anion Gap 11 L Estim Creat Clear Calc 74.2 Estimated GFR 57 Random Glucose 108 Calcium 9.0 B-Natriuretic Peptide 287 H Assessment and Plan (1) Acute on chronic respiratory failure with hypoxia: Status: Acute Plan This is a 76 year old M with a PMH of HFpEF, ILD with chronic resp. failure with hypoxia on 1L at home, morbid obesity, PAF - on Xarelto + Amiodarone who presents to the hospital with several days of progressive dyspnea and hypoxia, particularly with exertion. 1. Acute on Chronic Respiratory Failure with hypoxia remains on 4L by NC (baseline 1L) wean as tolerated likely secondary to fluid overload from acute CHF 2. Acute on Chronic HFpEF minimal response to IV push lasix, change to lasix gtt @ 5mg/hr cardiology input appreciated daily weight, low Na diet, i/o trend BNP and BMP 3. Bradycardia with marked first degree a-v block will eventually require PPM, but needs to be diursed first 4. Chronic COPD continue his baseline inhalers 5. HTN continue baseline meds 6. PAF Xarelto BB/Amio on hold -- see bradycardia above 7. MARY not on cpap at home 8. Morbid Obesity likely contributing to worsening of his respiratory/cardiac conditions weight loss Full Code DVT pptx, Xarelto Quality Stroke Does the patient have a stroke diagnosis?: No VTE Prior VTE?: No VTE Risk Level:: Medical - moderate - high VTE Device Contraindication: Treatment Not Indicated VTE Drug Contraindication: N/A - Med Ordered
--- NOTE | 2021-11-27 08:56 | MHC.CM.PN ---
Patient lives in a house with his /HCP/[place] and he uses a cane to assist with mobility (Morbidly Obese). Imm addressed and the original will be mailed certified letter to [place] and a copy to be placed on the chart (Patient appears to be SOB).Patient receives O2 at home through [facility] and he has received Covid vax X1. PCP is DR. Jenna Agee. Home is the goal and CM has initiated and will follow for dc planning.
[2021-11-27 09:12] LABS: B Type Natriuretic Peptide 287 pg/mL (<100)
[2021-11-27 09:33] LABS: ABG Base Excess 11.9 mmol/L; ABG HCO3 39 mmol/L (22-26); ABG pCO2 63 mmHg (32-45); ABG pH 7.39 (7.35-7.45); ABG pO2 84 mmHg (83-108)
--- NOTE | 2021-11-27 09:51 | PC.NURSE ---
report given to ANDREA Lowery. pt alert and oriented, vss, denies pain
[2021-11-27 10:53] VITALS: BP 147/63; PULSE 45; RESP 19; TEMP 36.1; O2SAT 100
[2021-11-27] MEDS: Atorvastatin Calcium 20 MG TABLET PO (11:00)
[2021-11-27] MEDS: Losartan Potassium 50 MG TABLET PO (11:01)
[2021-11-27] MEDS: Cholecalciferol (Vitamin D3) 25 MCG TABLET PO (11:01)
[2021-11-27] MEDS: Multivitamin TABLET 1 TAB PO (11:01)
[2021-11-27] MEDS: Furosemide 40 MG/4 ML VIAL IVPUSH (11:01)
--- NOTE | 2021-11-27 11:39 | ECG_ITS ---
Test Reason : BRADYCARDIA Blood Pressure : / mmHG Vent. Rate : 043 BPM Atrial Rate : 043 BPM P-R Int : 576 ms QRS Dur : 122 ms QT Int : 532 ms P-R-T Axes : 000 -34 070 degrees QTc Int : 449 ms Marked sinus bradycardia with marked first degree AV block Left axis deviation Left ventricular hypertrophy with QRS widening ( R in aVL , Sly product ) Abnormal ECG When compared with ECG of 26-NOV-2021 12:10, Sinus rhythm has replaced Undetermined rhythm Referred By: Jean Kennedy Electronically Signed By:JEAN KENNEDY MD
--- NOTE | 2021-11-27 12:37 | PM.CNCAR ---
History of Present Illness History of Present Illness Date of Service: 11/27/21 Requesting physician: Bello Montoya Consult reason: congestive heart failure Chief complaint: Congestive heart failure, bradycardia Narrative: I was requested to see Philip in cardiology consultation today for sudden onset acute shortness of breath and bradycardia. EKG done yesterday was of poor quality with significant baseline artifact and appeared to be possibly in atrial fibrillation with slow ventricular response. However monitor was noted to have clear P-waves. Repeat EKG today shows sinus bradycardia in the 40s with marked first-degree AV block with [place] interval of greater than 500 milliseconds. Philip is a difficult historian. He says he has been getting progressively increasing shortness of breath with the last few weeks also has been getting leg swelling but has not been monitoring his weight at home. He still does not understand the importance of monitoring weight at home to manages heart failure. Currently only on Lasix 20 mg at home. He is also on amiodarone and propranolol for paroxysmal atrial fibrillation as well as migraine respectively. Both of these medications have been held due to slow heart rate. He has history of hypertension, chronic kidney disease. Currently on Xarelto for anticoagulation reduced renal dosing. He also has chronic respiratory failure suspected to be due to interstitial lung disease not amiodarone toxicity and on chronic home oxygen. Due to chronic oxygen therapy says he gets scabbing in his nose and then subsequently least to epistaxis. He presently emergency room twice because of that and currently has a nasal packing in his right nostril. He is mostly sedentary at home. Denies any lightheadedness, syncope. Denies any chest pain. Review of Systems Constitutional: Constitutional: Reports no additional constitutional complaints and Reports fatigue Eyes: Eyes: Reports no additional eye complaints ENT: Reports system reviewed and no additional complaints, except as documented Cardiovascular: Cardiovascular: Denies chest pain, Reports leg edema, Denies lightheadedness, Denies Loss of Consciousness, Denies palpitations, Reports dyspnea on exertion and Reports orthopnea Respiratory: Respiratory: Reports no additional respiratory complaints and Reports dyspnea on exertion Gastrointestinal: Gastrointestinal: Reports no additional gastrointestinal complaints Genitourinary: Genitourinary: Reports no additional male genitourinary complaints Musculoskeletal: Musculoskeletal: Reports no additional musculoskeletal complaints Integumentary/Breasts: Skin/Breast: Reports system reviewed and no additional complaints, except as docu Neurologic: Reports system reviewed and no additional complaints, except as documented Psychiatric: Psychiatric: Reports no additional psychiatric complaints Endocrine: Endocrine: Reports no additional endocrine complaints, Reports fatigue and Denies palpitations Hematologic/Lymphatic: Hematologic/Lymphatic: Reports no additional hematologic/lymphatic complaints Allergic/Immunologic: Allergic/Immunologic: Reports no additional allergic/immunologic complaints [facility] Past Medical History Medical History (HFpEF) heart failure with preserved ejection fraction Acute on chronic diastolic (congestive) heart failure Aortic stenosis CHF (congestive heart failure) CKD (chronic kidney disease) COPD (chronic obstructive pulmonary disease) HTN (hypertension) Hypoxemia IPF (idiopathic pulmonary fibrosis) Morbid obesity Obesity Paroxysmal atrial fibrillation Restrictive lung disease Family History Family History Father Cancer Mother Dementia Surgical History Surgical History History of surgery on wrist Social History Social History Household Members: Spouse Housing: House Do you presently have visiting nurse or other home services: No Alcohol intake: never Patient Tobacco Use Status: Never used Tobacco Advance Directives Date on File: 06/08/21 service: No Current occupational status: retired [employer] Allergies Allergy/AdvReac Type Severity Reaction Status Date / Time No Known Allergies Allergy Verified 11/26/21 12:10 [No Known Allergies*] Active Medications: Current Medications Acetaminophen (Acetaminophen 325 Mg Tablet) 650 mg PO Q6H PRN PRN Reason: Pain, Mild (Pain Scale 1-3) Allopurinol (Allopurinol 100 Mg Tablet) 200 mg PO BEDTIME [facility] Last Admin: 11/26/21 21:47 Dose: 200 mg Documented by: Atorvastatin Calcium (Atorvastatin Calcium 20 Mg Tablet) 20 mg PO DAILY [facility] Last Admin: 11/27/21 11:00 Dose: 20 mg Documented by: Furosemide 200 mg/ Sodium (Chloride) 100 mls @ 2.5 mls/hr IVCONT .Q24H [facility] Losartan Potassium (Losartan Potassium 50 Mg Tablet) 50 mg PO DAILY [facility]; Protocol Last Admin: 11/27/21 11:01 Dose: 50 mg Documented by: Multivitamins/Vitamin C (Multivitamin Tablet) 1 tab PO DAILY [facility] Last Admin: 11/27/21 11:01 Dose: 1 tab Documented by: Ondansetron HCl (Ondansetron Hcl 4 Mg/2 Ml Vial) 4 mg IVPUSH Q8H PRN PRN Reason: Nausea and Vomiting Pharmacy Consult (Consult Rx Perform Med Rec) 1 each MISCELLANE ONCE PRN PRN Reason: Consult order Rivaroxaban (Rivaroxaban 20 Mg Tablet) 20 mg PO DAILY@1800 [facility] Last Admin: 11/26/21 18:44 Dose: 20 mg Documented by: Sodium Chloride (0.9 % Sodium Chloride Flush 3 Ml Syringe) 3 ml IVFLUSH QSHIFT [facility] Last Admin: 11/27/21 07:26 Dose: 3 ml Documented by: Tiotropium Jber (Tiotropium Jber 18 Mcg Cap.W.Dev) 1 puff INHALE RDAILY [facility] Last Admin: 11/27/21 07:46 Dose: 1 puff Documented by: Vitamin D (Cholecalciferol (Vitamin D3) 25 Mcg Tablet) 25 mcg PO DAILY [facility] Last Admin: 11/27/21 11:01 Dose: 25 mcg Documented by: Home Medications Medication Instructions Recorded Confirmed Last Taken Type allopurinol 100 mg tablet 200 mg PO BEDTIME tab 07/25/20 11/26/21 11/25/21 History bcddyslmso-ztygafcyuskqb-ednstqzz 1 tab PO Q6H PRN 07/25/20 11/26/21 11/26/21 History 50 mg-325 mg-40 mg tablet cholecalciferol (vitamin D3) 25 25 mcg PO DAILY 07/25/20 11/26/21 11/26/21 History mcg (1,000 unit) capsule multivitamin 1 tab PO DAILY 07/25/20 11/26/21 11/26/21 History losartan 50 mg tablet 50 mg PO DAILY 01/30/21 11/26/21 11/26/21 History atorvastatin 20 mg tablet 20 mg PO DAILY 06/06/21 11/26/21 11/26/21 History amoxicillin 875 mg-potassium 1 tab PO BID 11/26/21 11/26/21 11/26/21 History clavulanate 125 mg tablet furosemide 20 mg tablet 20 mg PO DAILY@1700 11/26/21 11/26/21 11/25/21 History omega 3-lgv-qll-fish oil 1,200 mg 1 cap PO DAILY 11/26/21 11/26/21 11/26/21 History (144 mg-216 mg) capsule (Fish Oil) propranolol 60 mg tablet 1 tab PO BID 11/26/21 11/26/21 11/26/21 History Physical Exam Vital Signs: Vital Signs: Last Vital Signs Temp 97.0 F 11/27/21 10:53 Pulse 45 L 11/27/21 10:53 Resp 19 11/27/21 10:53 BP 147/63 H 11/27/21 10:53 Pulse Ox 100 11/27/21 10:53 Oxygen Flow Rate 2 11/26/21 12:10 BMI result Body Mass Index 49.0 Const: General: cooperative, alert, awake and in distress moderate and respiratory Nutritional Appearance: obese morbidly obese Orientation/consciousness: patient oriented x3 HENMT: Head: Yes normocephalic and Yes atraumatic Neck: Neck: Yes trachea midline, Yes supple and Yes JVD Chest: Chest palpation & inspection: normal inspection of the chest Resp: Effort & Inspection: normal respiratory effort and paradoxical thoraco-abdominal movements Auscultation: no wheezes and diminished lung sounds Cardio: Jugular venous distension: JVD Rate: regular rate and bradycardic Rhythm: regular rhythm Heart sounds: S1 normal heart sound present, S2 normal heart sound present, no click, no gallops, no murmurs and no rubs GI: Inspection: Yes Abdominal panniculus present and Yes obesity Auscultation: normal bowel sounds Skin: General skin exam: no rashes or lesions noted Neuro: General: patient oriented x3 and no focal motor deficits Extrem: General: No clubbing, No cyanosis and Yes edema (Significant edema bilaterally) Objective Labs and Meds Result diagrams: 11/27/21 06:11 11/27/21 06:11 Lab results: Laboratory Results - last 24 hr 11/26/21 11/26/21 11/26/21 12:10 12:24 12:24 WBC RBC Hgb Hct MCV MCH MCHC RDW Plt Count MPV Absolute Nucleated RBC Nucleated RBC % (auto) PT 19.3 H INR 1.7 H O2 Saturation 96.0 ABG pH at Pt Temp 7.39 ABG pCO2 at Pt Temp 63 H* ABG pO2 at Pt Temp 84 ABG HCO3 39 H ABG Base Excess (Actual) 11.9 Sodium 126 L Potassium 4.7 Chloride 88 L Carbon Dioxide 34 H Anion Gap 9 L BUN 22 H Creatinine 1.18 Estim Creat Clear Calc 77.3 Estimated GFR > 60 Random Glucose 207 H D Calcium 8.6 Total Bilirubin 0.9 AST 24 ALT 13 Alkaline Phosphatase 111 Troponin I High Sens B-Natriuretic Peptide Total Protein 6.7 Albumin 3.5 COVID-19 ([facility]) COVID-19 [employer] 11/26/21 11/26/21 11/27/21 12:24 12:24 06:11 WBC 9.6 RBC 3.09 L Hgb 9.9 L Hct 31.2 L MCV 101.0 H MCH 32.0 MCHC 31.7 RDW 15.4 Plt Count 214 MPV 10.9 Absolute Nucleated RBC 0.000 Nucleated RBC % (auto) 0.0 PT INR O2 Saturation ABG pH at Pt Temp ABG pCO2 at Pt Temp ABG pO2 at Pt Temp ABG HCO3 ABG Base Excess (Actual) Sodium Potassium Chloride Carbon Dioxide Anion Gap BUN Creatinine Estim Creat Clear Calc Estimated GFR Random Glucose Calcium Total Bilirubin AST ALT Alkaline Phosphatase Troponin I High Sens 3.7 B-Natriuretic Peptide 370 H Total Protein Albumin COVID-19 ([facility]) Negative COVID-19 [facility] See Note 11/27/21 11/27/21 06:11 06:11 WBC RBC Hgb Hct MCV MCH MCHC RDW Plt Count MPV Absolute Nucleated RBC Nucleated RBC % (auto) PT INR O2 Saturation ABG pH at Pt Temp ABG pCO2 at Pt Temp ABG pO2 at Pt Temp ABG HCO3 ABG Base Excess (Actual) Sodium 130 L Potassium 4.5 Chloride 88 L Carbon Dioxide 34 H Anion Gap 13 BUN 22 H Creatinine 1.12 Estim Creat Clear Calc 81.5 Estimated GFR > 60 Random Glucose 102 D Calcium 9.2 D Total Bilirubin AST ALT Alkaline Phosphatase Troponin I High Sens B-Natriuretic Peptide 287 H Total Protein Albumin COVID-19 ([facility]) COVID-19 [facility] Radiologist's impression: Impressions Chest X-Ray 11/26/21 12:56 IMPRESSION: Enlarged cardiac silhouette. Bilateral central airspace disease and right pleural effusion. Differential would include pulmonary edema and pneumonia. Clinical correlation recommended. Assessment and Plan (1) Acute on chronic respiratory failure with hypoxia: Status: Acute Patient present with acute respiratory failure on chronic respiratory failure appears to be due to decompensated congestive heart failure as noted by worsening shortness of breath, and significant fluid overload on clinical exam as well as elevated BNP. He is at high risk for the same. S underlying significant restrictive and possibly fibrotic lung disease that explains chronic respiratory failure. Continue oxygen supplementation therapy. Continue aggressive diuresis and started on Lasix 5 mg an hour drip. Strict intake and output chart needs to be pursued. Continue to trend basic metabolic profile. Continue maintain rhythm for now which has helped him in the past. Will require workup for cardiac amyloidosis as an outpatient. Continue good blood pressure control. (2) Paroxysmal atrial fibrillation: Status: Acute Prior history of atrial fibrillation status post cardioversion in over the years has done very well with rhythm management with much improved heart failure syndrome. However has recurrent heart failure syndrome at this point time most likely exacerbated by significant bradycardia and first-degree AV block. See below. For now continue rhythm control approach. Once his bradycardia is resolved will resume amiodarone therapy. Consider repeating CT scan of chest without contrast to evaluate for amiodarone toxicity. Continue full oral anticoagulation and can change Xarelto to 20 mg daily. Will hold Xarelto for pacemaker placement. (3) First degree AV block: Status: Acute Significant sinus bradycardia with marked first-degree AV block effectively leading to poor AV synchrony. Will require pacing therapy to improve bradycardia as well as to resynchronization atrial and ventricle contraction. This will be performed after his heart failure syndrome is much better control. Will follow with you. Greater than 40 minutes was spent in managing his complex care. Procedures Date of Service Date of Service: 11/27/21
[2021-11-27] MEDS: Furosemide 200 MG in 0.9 % Sodium Chloride 80 ML IVCONT (13:07)
[2021-11-27 15:23] VITALS: BP 93/45; PULSE 40; RESP 17; TEMP 36.2; O2SAT 97
[2021-11-27 16:18] VITALS: BP 144/67; PULSE 42; RESP 20; O2SAT 97
[2021-11-27] MEDS: Rivaroxaban 20 MG TABLET PO (17:25)
[2021-11-27 19:41] VITALS: BP 115/57; PULSE 51; RESP 18; TEMP 36.1; O2SAT 100
[2021-11-27] MEDS: allopurinoL 100 MG TABLET 200 MG PO (22:19)
[2021-11-28] VITALS (9 sets, daily range): BP systolic 94–142; BP diastolic 51–64; PULSE 43–72; RESP 14–20; TEMP 35.1–36.6; O2SAT 90–99
[2021-11-28 06:28] LABS: Anion Gap 11 (12-20); Blood Urea Nitrogen 22 mg/dL (9-16); Carbon Dioxide 37 mmol/L (22-29); Chloride 88 mmol/L (96-108); Creatinine Clr Calc Pharmacy 74.2; Estimated Glomerular Filt Rate 57; Glucose Random 108 mg/dL (60-115); Potassium 4.8 mmol/L (3.3-5.1); Sodium 131 mmol/L (135-145)
[2021-11-28] MEDS: Atorvastatin Calcium 20 MG TABLET PO (09:11)
[2021-11-28] MEDS: Multivitamin TABLET 1 TAB PO (09:11)
[2021-11-28] MEDS: 0.9 % Sodium Chloride Flush 3 ML SYRINGE IVFLUSH ×2 (09:11→15:24)
[2021-11-28] MEDS: Cholecalciferol (Vitamin D3) 25 MCG TABLET PO (09:11)
[2021-11-28] MEDS: Losartan Potassium 50 MG TABLET PO (09:15)
--- NOTE | 2021-11-28 09:41 | P.PNIM_ITS ---
Subjective Subjective Date of Service: 11/28/21 Interval History: seen and examined this AM feels the same, reports increased urine output after lasix gtt Review of Systems negative except interval history Physical Exam Vital Signs: Vital Signs: Last Vital Signs Temp 98 F 11/28/21 07:00 Pulse 54 11/28/21 08:31 Resp 20 11/28/21 08:31 BP 98/52 L 11/28/21 07:00 Pulse Ox 99 11/28/21 07:00 Oxygen Flow Rate 2 11/26/21 12:10 BMI result Body Mass Index 49.0 Const: Other: General - no acute distress, appears comfortable Cardiovascular - regular rate and rhythm, S1-S2, still with significant edema, unable to lay supine Lungs - normal respiratory effort, clear to auscultation bilaterally, no wheezing Abdomen - soft, nontender, no rebound or guarding Extremities - no edema bilaterally Neuro - awake and alert, no focal deficits Objective Data Active Medications Acetaminophen (Acetaminophen 325 Mg Tablet) 650 mg PO Q6H PRN PRN Reason: Pain, Mild (Pain Scale 1-3) Allopurinol (Allopurinol 100 Mg Tablet) 200 mg PO BEDTIME [facility] Last Admin: 11/27/21 22:19 Dose: 200 mg Documented by: CHARITO Atorvastatin Calcium (Atorvastatin Calcium 20 Mg Tablet) 20 mg PO DAILY [facility] Last Admin: 11/28/21 09:11 Dose: 20 mg Documented by: BOGDAN Furosemide 200 mg/ Sodium (Chloride) 100 mls @ 2.5 mls/hr IVCONT .Q24H [facility] Last Admin: 11/27/21 13:07 Dose: 5 mg/hr, 2.5 mls/hr Documented by: DABDanny Losartan Potassium (Losartan Potassium 50 Mg Tablet) 50 mg PO DAILY [facility]; Protocol Last Admin: 11/28/21 09:15 Dose: 50 mg Documented by: BOGDAN Multivitamins/Vitamin C (Multivitamin Tablet) 1 tab PO DAILY [facility] Last Admin: 11/28/21 09:11 Dose: 1 tab Documented by: BOGDAN Ondansetron HCl (Ondansetron Hcl 4 Mg/2 Ml Vial) 4 mg IVPUSH Q8H PRN PRN Reason: Nausea and Vomiting Pharmacy Consult (Consult Rx Perform Med Rec) 1 each MISCELLANE ONCE PRN PRN Reason: Consult order Rivaroxaban (Rivaroxaban 20 Mg Tablet) 20 mg PO DAILY@1800 [facility] Last Admin: 11/27/21 17:25 Dose: 20 mg Documented by: CHARITO Sodium Chloride (0.9 % Sodium Chloride Flush 3 Ml Syringe) 3 ml IVFLUSH QSHIFT [facility] Last Admin: 11/28/21 09:11 Dose: 3 ml Documented by: BOGDAN Tiotropium Black (Tiotropium Black 18 Mcg Cap.W.Dev) 1 puff INHALE RDAILY [facility] Last Admin: 11/28/21 08:29 Dose: 1 puff Documented by: ALEXANDRO Vitamin D (Cholecalciferol (Vitamin D3) 25 Mcg Tablet) 25 mcg PO DAILY [facility] Last Admin: 11/28/21 09:11 Dose: 25 mcg Documented by: BOGDAN Labs CBC & Chem 7: 11/27/21 06:11 11/28/21 05:28 Labs: Laboratory Results - last 24 hr 11/28/21 05:28 Anion Gap 11 L Estim Creat Clear Calc 74.2 Estimated GFR 57 Random Glucose 108 Calcium 9.0 Assessment and Plan (1) Acute on chronic respiratory failure with hypoxia: Status: Acute Plan This is a 76 year old M with a PMH of HFpEF, ILD with chronic resp. failure with hypoxia on 1L at home, morbid obesity, PAF - on Xarelto + Amiodarone who presents to the hospital with several days of progressive dyspnea and hypoxia, particularly with exertion. 1. Acute on Chronic Respiratory Failure with hypoxia remains on 4L by NC (baseline 1L) wean as tolerated likely secondary to fluid overload from acute CHF 2. Acute on Chronic HFpEF urine output has increased on lasix drip - negative 2.4L now continue with the current dose for now i/o; BMP daily cardiology input appreciated 3. Bradycardia with marked first degree a-v block will eventually require PPM, but needs to be diursed first 4. Chronic COPD continue his baseline inhalers 5. HTN continue baseline meds 6. PAF Xarelto BB/Amio on hold -- see bradycardia above 7. MARY not on cpap at home 8. Morbid Obesity likely contributing to worsening of his respiratory/cardiac conditions weight loss Full Code DVT pptx, Xarelto Reason for continued hospitalization: Still fluid overloaded requiring IV lasix drip. Also bradycardic and will need PPM once CHF status improved. Quality Stroke Does the patient have a stroke diagnosis?: No VTE Prior VTE?: No VTE Risk Level:: Medical - moderate - high VTE Device Contraindication: Treatment Not Indicated VTE Drug Contraindication: N/A - Med Ordered
[2021-11-28] MEDS: Amoxicillin/Potassium Clav 875 MG TABLET PO ×2 (10:24→20:12)
--- NOTE | 2021-11-28 10:49 | PM.PNCARD ---
Subjective Subjective Date of Service: 11/28/21 Principal diagnosis: CHF, bradycardia Interval history: Patient is doing well today. Breathing is improved. Diuresing well with Lasix drip. His creatinine is bumped up slightly. His leg edema is still present. Has a small wound on his leg. Remains bradycardic with significant first-degree AV block. His nasal packing was also removed this morning. No major bleeding since then Review of Systems Constitutional: Reports no additional constitutional complaints Cardiovascular: Denies chest pain, Denies rapid heart rate, Reports leg edema, Denies palpitations, Reports dyspnea and Reports slow heart rate Respiratory: Reports no additional respiratory complaints and Reports dyspnea Gastrointestinal: Reports no additional gastrointestinal complaints Genitourinary: Reports no additional male genitourinary complaints Musculoskeletal: Reports no additional musculoskeletal complaints Skin/Breast: Reports system reviewed and no additional complaints, except as docu Reports system reviewed and no additional complaints, except as documented Psychiatric: Reports no additional psychiatric complaints Endocrine: Reports no additional endocrine complaints and Denies palpitations Physical Exam Vital Signs: Last Vital Signs Temp 98 F 11/28/21 07:00 Pulse 54 11/28/21 08:31 Resp 20 11/28/21 08:31 BP 98/52 L 11/28/21 07:00 Pulse Ox 99 11/28/21 07:00 Oxygen Flow Rate 2 11/26/21 12:10 BMI result Body Mass Index 49.0 Const General: cooperative, comfortable and in distress mild and respiratory Nutritional Appearance: obese Orientation/consciousness: patient oriented x3 Neck Neck: Yes trachea midline, Yes supple and Yes JVD Resp Effort & Inspection: normal respiratory effort Auscultation: no rales and diminished lung sounds Cardio Jugular venous distension: JVD Rate: regular rate and bradycardic Rhythm: regular rhythm Heart sounds: S1 normal heart sound present, S2 normal heart sound present, no click, no gallops and no murmurs GI Inspection: Yes Abdominal panniculus present Auscultation: normal bowel sounds Skin General skin exam: no rashes or lesions noted Neuro General: patient oriented x3 and no focal motor deficits Extrem General: No clubbing, No cyanosis and Yes edema Objective Labs and Meds Result diagrams: 11/27/21 06:11 11/28/21 05:28 Lab results: Laboratory Results - last 24 hr 11/28/21 05:28 Sodium 131 L Potassium 4.8 Chloride 88 L Carbon Dioxide 37 H Anion Gap 11 L BUN 22 H Creatinine 1.23 Estim Creat Clear Calc 74.2 Estimated GFR 57 Random Glucose 108 Calcium 9.0 Progress Note: A&P Assessment and plan (1) Acute on chronic respiratory failure with hypoxia: Status: Acute Assessment and Plan: Patient with acute respiratory failure with hypoxemia on setting of underlying chronic respiratory failure due to underlying interstitial lung disease of unclear etiology. Should repeat CT chest with noncontrast to evaluate for interstitial lung disease and consider pulmonary consultation. Clinically his shortness of breath is improved with diuresis. Will continue IV diuresis. Pay attention to his blood pressure. Blood pressure continues to get lower will reduce losartan does. Need to rule out presence of underlying cardiac amyloidosis, workup as an outpatient. Will continue to follow with the patient. I think his congestive heart failure syndrome will also possibly get better with treatment of his bradycardia and first-degree AV block which will improve his AV synchrony. However discussed with patient shortness of breath is multifactorial and will need gradual physical therapy and intervention with weight reduction to help his overall chronic issues. Will continue to follow with you (2) Paroxysmal atrial fibrillation: Status: Acute Assessment and Plan: Paroxysmal atrial fibrillation the past has been suppressed and has been on low-dose amiodarone therapy and has done very well with rhythm control approach with his prior resolution of heart failure syndrome. Not having progressive heart failure syndrome with bradycardia needs pacing therapy. For now will hold off on amiodarone therapy due to bradycardia. Continue full oral anticoagulation with Xarelto, can be withheld as per surgeon's discretion prior to pacemaker placement. (3) Sinus bradycardia: Status: Acute Assessment and Plan: Sinus bradycardia with marked first-degree AV block will benefit with pacing therapy. This was discussed with the patient. He is agreeable. Needs further optimization of heart failure prior to pursuing anesthesia and pacemaker placement. Will continue to follow with you. Fall Risk Details Current Medications: Current Medications Acetaminophen (Acetaminophen 325 Mg Tablet) 650 mg PO Q6H PRN PRN Reason: Pain, Mild (Pain Scale 1-3) Allopurinol (Allopurinol 100 Mg Tablet) 200 mg PO BEDTIME [facility] Last Admin: 11/27/21 22:19 Dose: 200 mg Documented by: Amoxicillin/Clavulanate Potassium (Amoxicillin/Potassium Clav 875 Mg Tablet) 875 mg PO BID [facility] Last Admin: 11/28/21 10:24 Dose: 875 mg Documented by: Atorvastatin Calcium (Atorvastatin Calcium 20 Mg Tablet) 20 mg PO DAILY [facility] Last Admin: 11/28/21 09:11 Dose: 20 mg Documented by: Furosemide 200 mg/ Sodium (Chloride) 100 mls @ 2.5 mls/hr IVCONT .Q24H [facility] Last Admin: 11/27/21 13:07 Dose: 5 mg/hr, 2.5 mls/hr Documented by: Losartan Potassium (Losartan Potassium 50 Mg Tablet) 50 mg PO DAILY [facility]; Protocol Last Admin: 11/28/21 09:15 Dose: 50 mg Documented by: Multivitamins/Vitamin C (Multivitamin Tablet) 1 tab PO DAILY [facility] Last Admin: 11/28/21 09:11 Dose: 1 tab Documented by: Ondansetron HCl (Ondansetron Hcl 4 Mg/2 Ml Vial) 4 mg IVPUSH Q8H PRN PRN Reason: Nausea and Vomiting Pharmacy Consult (Consult Rx Perform Med Rec) 1 each MISCELLANE ONCE PRN PRN Reason: Consult order Rivaroxaban (Rivaroxaban 20 Mg Tablet) 20 mg PO DAILY@1800 [facility] Last Admin: 11/27/21 17:25 Dose: 20 mg Documented by: Sodium Chloride (0.9 % Sodium Chloride Flush 3 Ml Syringe) 3 ml IVFLUSH QSHIFT [facility] Last Admin: 11/28/21 09:11 Dose: 3 ml Documented by: Tiotropium [place] (Tiotropium [place] 18 Mcg Cap.W.Dev) 1 puff INHALE RDAILY [facility] Last Admin: 11/28/21 08:29 Dose: 1 puff Documented by: Vitamin D (Cholecalciferol (Vitamin D3) 25 Mcg Tablet) 25 mcg PO DAILY [facility] Last Admin: 11/28/21 09:11 Dose: 25 mcg Documented by: Time Spent With Patient Time: Total time spent is greater than 50% in coordination of care (as documented) at patient's floor/unit and/or counseling patient: Time with patient: 25 - 35 minutes Progress Note: Quality Stroke Does the patient have a stroke diagnosis?: No Procedures Date of Service Date of Service: 11/28/21
[2021-11-28] MEDS: Furosemide 200 MG in 0.9 % Sodium Chloride 80 ML IVCONT (13:50)
[2021-11-28 16:29] LABS: Hemoglobin 8.8 g/dl (14.0-18.0); Mean Corpuscular HGB Conc 32.6 g/dl (31.0-36.0); Mean Corpuscular Volume 101.1 fL (80.0-98.0); Mean Platelet Volume 10.5 fL (9.4-12.4); Platelet Count 200 X10*3/uL (160-400); Red Blood Count 2.67 X10*6/uL (4.60-5.80); Red Cell Distribution Width 15.6 % (11.0-16.0); White Blood Count 8.6 X10*3/uL (4.8-10.8)
[2021-11-28] MEDS: Rivaroxaban 20 MG TABLET PO (17:21)
[2021-11-28] MEDS: allopurinoL 100 MG TABLET 200 MG PO (20:12)
[2021-11-29] VITALS (7 sets, daily range): BP systolic 101–127; BP diastolic 44–64; PULSE 51–73; RESP 14–20; TEMP 35.9–36.4; O2SAT 96–99
[2021-11-29 07:27] LABS: Anion Gap 14 (12-20); Blood Urea Nitrogen 29 mg/dL (9-16); Calcium 9.2 mg/dL (8.4-10.2); Carbon Dioxide 37 mmol/L (22-29); Chloride 82 mmol/L (96-108); Estimated Glomerular Filt Rate 45; Glucose Random 131 mg/dL (60-115); Potassium 4.8 mmol/L (3.3-5.1); Sodium 128 mmol/L (135-145)
[2021-11-29] MEDS: Multivitamin TABLET 1 TAB PO (09:34)
[2021-11-29] MEDS: Atorvastatin Calcium 20 MG TABLET PO (09:34)
[2021-11-29] MEDS: Cholecalciferol (Vitamin D3) 25 MCG TABLET PO (09:34)
[2021-11-29] MEDS: Amoxicillin/Potassium Clav 875 MG TABLET PO ×2 (09:34→20:36)
[2021-11-29] MEDS: Losartan Potassium 50 MG TABLET PO (09:36)
--- NOTE | 2021-11-29 10:22 | PM.PNCARD ---
Subjective Subjective Date of Service: 11/29/21 Principal diagnosis: CHF, bradycardia Interval history: Patient breathing a lot better. Creatinine is going to. Still has significant leg edema. Remains bradycardia with marked first-degree AV block. Hemodynamically stable. Maintaining rhythm. Chest CT pending Review of Systems Constitutional: Reports no additional constitutional complaints Cardiovascular: Reports chest pain, Reports leg edema, Denies lightheadedness, Denies Loss of Consciousness and Reports dyspnea on exertion Respiratory: Reports no additional respiratory complaints and Reports dyspnea on exertion Gastrointestinal: Reports no additional gastrointestinal complaints Genitourinary: Reports no additional male genitourinary complaints Musculoskeletal: Reports no additional musculoskeletal complaints Reports system reviewed and no additional complaints, except as documented Endocrine: Reports no additional endocrine complaints Physical Exam Vital Signs: Last Vital Signs Temp 96.8 F 11/29/21 08:00 Pulse 67 11/29/21 08:34 Resp 20 11/29/21 08:34 BP 123/64 11/29/21 08:00 Pulse Ox 96 11/29/21 08:00 Oxygen Flow Rate 2 11/26/21 12:10 BMI result Body Mass Index 49.0 Const General: cooperative, comfortable, alert and awake Nutritional Appearance: obese Orientation/consciousness: patient oriented x3 Neck Neck: Yes trachea midline and Yes supple Resp Effort & Inspection: normal respiratory effort Auscultation: clear to auscultation bilaterally and diminished lung sounds Cardio Palpation: normal PMI Rate: regular rate and bradycardic Rhythm: regular rhythm Heart sounds: S1 normal heart sound present, S2 normal heart sound present, no click, no gallops and no murmurs GI Inspection: Yes obesity Auscultation: normal bowel sounds Skin General skin exam: no rashes or lesions noted Neuro General: patient oriented x3 and no focal motor deficits Extrem General: No clubbing, No cyanosis and Yes edema Objective Labs and Meds Result diagrams: 11/28/21 16:21 11/29/21 05:58 Lab results: Laboratory Results - last 24 hr 11/28/21 11/29/21 16:21 05:58 WBC 8.6 RBC 2.67 L Hgb 8.8 L Hct 27.0 L MCV 101.1 H MCH 33.0 MCHC 32.6 RDW 15.6 Plt Count 200 MPV 10.5 Absolute Nucleated RBC 0.000 Nucleated RBC % (auto) 0.0 Sodium 128 L Potassium 4.8 Chloride 82 L Carbon Dioxide 37 H Anion Gap 14 BUN 29 H Creatinine 1.52 H Estim Creat Clear Calc 60.0 Estimated GFR 45 Random Glucose 131 H Calcium 9.2 Progress Note: A&P Assessment and plan (1) Acute on chronic respiratory failure with hypoxia: Status: Acute Assessment and Plan: Patient with rising creatinine with IV diuresis. This is concerning. However most likely suggestive reduced stroke volume with IV diuresis and a very narrow pressure volume relationship. This makes it very difficult to manage his heart failure. I think he will get better with pacemaker therapy with improved cardiac output after reestablishment of proper AV synchrony and heart rate. Await CT scan result and if abnormal should get pulmonary consultation. Continue IV diuresis. Continue monitor electrolytes and renal function. Blood pressure is optimally controlled. Maintaining rhythm at this point in time. (2) Paroxysmal atrial fibrillation: Status: Acute Assessment and Plan: Paroxysmal atrial fibrillation the past has not tolerated with heart failure syndrome. Currently maintaining rhythm with bradycardia. See below. For now amiodarone was discontinued due to bradycardia and possible lung toxicity. Will follow set chest CT result and pacemaker, plan for tomorrow. Holding Xarelto today for pacemaker tomorrow. (3) First degree AV block: Status: Acute Assessment and Plan: Marked first-degree AV block leading to loss of AV synchrony. Pacemaker therapy with paced AV delay should be 180 milliseconds to reestablish AV synchrony. Hopefully this will help his heart failure syndrome. Plan for tomorrow. Will continue to follow with you Fall Risk Details Current Medications: Current Medications Acetaminophen (Acetaminophen 325 Mg Tablet) 650 mg PO Q6H PRN PRN Reason: Pain, Mild (Pain Scale 1-3) Allopurinol (Allopurinol 100 Mg Tablet) 200 mg PO BEDTIME [facility] Last Admin: 11/28/21 20:12 Dose: 200 mg Documented by: Amoxicillin/Clavulanate Potassium (Amoxicillin/Potassium Clav 875 Mg Tablet) 875 mg PO BID [facility] [place] Last Admin: 11/29/21 09:34 Dose: 875 mg Documented by: Atorvastatin Calcium (Atorvastatin Calcium 20 Mg Tablet) 20 mg PO DAILY [facility] [place] Last Admin: 11/29/21 09:34 Dose: 20 mg Documented by: Furosemide 200 mg/ Sodium (Chloride) 100 mls @ 2.5 mls/hr IVCONT .Q24H [facility] [place] Last Admin: 11/28/21 13:50 Dose: 5 mg/hr, 2.5 mls/hr Documented by: Losartan Potassium (Losartan Potassium 50 Mg Tablet) 50 mg PO DAILY [facility] [place]; Protocol Last Admin: 11/29/21 09:36 Dose: 50 mg Documented by: Multivitamins/Vitamin C (Multivitamin Tablet) 1 tab PO DAILY [facility] Last Admin: 11/29/21 09:34 Dose: 1 tab Documented by: Ondansetron HCl (Ondansetron Hcl 4 Mg/2 Ml Vial) 4 mg IVPUSH Q8H PRN PRN Reason: Nausea and Vomiting Pharmacy Consult (Consult Rx Perform Med Rec) 1 each MISCELLANE ONCE PRN PRN Reason: Consult order Rivaroxaban (Rivaroxaban 20 Mg Tablet) 20 mg PO DAILY@1800 [facility] [place] Last Admin: 11/28/21 17:21 Dose: 20 mg Documented by: Sodium Chloride (0.9 % Sodium Chloride Flush 3 Ml Syringe) 3 ml IVFLUSH QSHIFT [facility] Last Admin: 11/29/21 00:00 Dose: Not Given Documented by: Tiotropium [place] (Tiotropium [place] 18 Mcg Cap.W.Dev) 1 puff INHALE RDAILY [facility] [place] Last Admin: 11/29/21 08:32 Dose: 1 puff Documented by: Vitamin D (Cholecalciferol (Vitamin D3) 25 Mcg Tablet) 25 mcg PO DAILY [facility] Last Admin: 11/29/21 09:34 Dose: 25 mcg Documented by: Time Spent With Patient Time: Total time spent is greater than 50% in coordination of care (as documented) at patient's floor/unit and/or counseling patient: Time with patient: 25 - 35 minutes Progress Note: Quality Stroke Does the patient have a stroke diagnosis?: No Procedures Date of Service Date of Service: 11/29/21
[2021-11-29] MEDS: Furosemide 200 MG in 0.9 % Sodium Chloride 80 ML IVCONT (11:48)
--- NOTE | 2021-11-29 11:48 | P.EN_ITS ---
Event Note Date of Service: 11/29/21 Event Note: THORACIC SURGERY Consulted by Dr. Kennedy to place a dual-chamber [employer] pacemaker. Patient is scheduled for pacemaker insertion at [facility] at 2:[address] Johnson. * Hold Xarelto today and tomorrow in anticipation of procedure. We will let you know when this can resume postoperatively. * N.p.o. after midnight * Type and screen ordered for tomorrow morning. * Repeat coags ordered for tomorrow morning. (INR was 1.7 on 11/26/2021) * Ancef 2g IV OCTOR Laboratory Tests 11/28/21 11/29/21 16:21 05:58 WBC 8.6 Hgb 8.8 L Hct 27.0 L Plt Count 200 Sodium 128 L Potassium 4.8 Chloride 82 L Carbon Dioxide 37 H BUN 29 H Creatinine 1.52 H
--- NOTE | 2021-11-29 11:48 | PM.EVENT ---
Event Note Date of Service: 11/29/21 Event Note: THORACIC SURGERY Consulted by Dr. Kennedy to place a dual-chamber [employer] pacemaker. Patient is scheduled for pacemaker insertion at [facility] at 2:[address] Johnson. Hold Deepika today and tomorrow in anticipation of procedure. We will let you know when this can resume postoperatively. N.p.o. after midnight Type and screen ordered for tomorrow morning. Repeat coags ordered for tomorrow morning. (INR was 1.7 on 11/26/2021) Ancef 2g IV OCTOR Laboratory Tests 11/28/21 11/29/21 16:21 05:58 WBC 8.6 Hgb 8.8 L Hct 27.0 L Plt Count 200 Sodium 128 L Potassium 4.8 Chloride 82 L Carbon Dioxide 37 H BUN 29 H Creatinine 1.52 H
--- NOTE | 2021-11-29 16:12 | HO.PM.IMPN ---
Subjective Subjective Date of Service: 11/29/21 Interval History: seen and examined this morning denies shortness of breath, no chest pain Review of Systems Review of Systems: Yes all other systems are reviewed and are negative Constitutional Constitutional: Denies chills and Denies fever(s) Cardiovascular Cardiovascular: Denies chest pain, Denies palpitations and Denies dyspnea Respiratory Respiratory: Denies dyspnea Endocrine Endocrine: Denies palpitations Physical Exam Vital Signs: Vital Signs: Last Vital Signs Temp 96.9 F 11/29/21 14:48 Pulse 51 11/29/21 14:48 Resp 18 11/29/21 14:48 BP 101/44 L 11/29/21 14:48 Pulse Ox 97 11/29/21 14:48 Oxygen Flow Rate 2 11/26/21 12:10 BMI result Body Mass Index 49.0 Const: General: cooperative, comfortable, alert and awake Nutritional Appearance: obese Resp: Other: diminished breath sounds; no rales Effort & Inspection: normal respiratory effort and able to speak in complete sentences GI: Inspection: No distended and Yes obesity Palpation (GI): Soft to palpation and nontender Extrem: Other: 2+ pitting edema up to knees bilaterally Objective Data Active Medications Acetaminophen (Acetaminophen 325 Mg Tablet) 650 mg PO Q6H PRN PRN Reason: Pain, Mild (Pain Scale 1-3) Allopurinol (Allopurinol 100 Mg Tablet) 200 mg PO BEDTIME [facility] Last Admin: 11/28/21 20:12 Dose: 200 mg Documented by: ALEJANDRA Amoxicillin/Clavulanate Potassium (Amoxicillin/Potassium Clav 875 Mg Tablet) 875 mg PO BID [facility] Last Admin: 11/29/21 09:34 Dose: 875 mg Documented by: ABHI Atorvastatin Calcium (Atorvastatin Calcium 20 Mg Tablet) 20 mg PO DAILY [facility] Last Admin: 11/29/21 09:34 Dose: 20 mg Documented by: ABHI Furosemide 200 mg/ Sodium (Chloride) 100 mls @ 2.5 mls/hr IVCONT .Q24H [facility] Last Admin: 11/29/21 11:48 Dose: 5 mg/hr, 2.5 mls/hr Documented by: ABHI Cefazolin Sodium/Dextrose (Ancef) 2 gm in 50 mls @ 100 mls/hr IV PREOP ONE Stop: 11/30/21 14:29 Losartan Potassium (Losartan Potassium 50 Mg Tablet) 50 mg PO DAILY [facility]; Protocol Last Admin: 11/29/21 09:36 Dose: 50 mg Documented by: ABHI Multivitamins/Vitamin C (Multivitamin Tablet) 1 tab PO DAILY [facility] Last Admin: 11/29/21 09:34 Dose: 1 tab Documented by: ABHI Ondansetron HCl (Ondansetron Hcl 4 Mg/2 Ml Vial) 4 mg IVPUSH Q8H PRN PRN Reason: Nausea and Vomiting Pharmacy Consult (Consult Rx Perform Med Rec) 1 each MISCELLANE ONCE PRN PRN Reason: Consult order Rivaroxaban (Rivaroxaban 20 Mg Tablet) 20 mg PO DAILY@1800 [facility] Last Admin: 11/28/21 17:21 Dose: 20 mg Documented by: BOGDAN Sodium Chloride (0.9 % Sodium Chloride Flush 3 Ml Syringe) 3 ml IVFLUSH QSHIFT [facility] Last Admin: 11/29/21 11:50 Dose: Not Given Documented by: ABHI Non-Admin Reason: IV Running Tiotropium [place] (Tiotropium [place] 18 Mcg Cap.W.Dev) 1 puff INHALE RDAILY [facility] Last Admin: 11/29/21 08:32 Dose: 1 puff Documented by: ALEXANDRO Vitamin D (Cholecalciferol (Vitamin D3) 25 Mcg Tablet) 25 mcg PO DAILY [facility] Last Admin: 11/29/21 09:34 Dose: 25 mcg Documented by: ABHI Labs CBC & Chem 7: 11/28/21 16:21 11/29/21 05:58 Labs: Laboratory Results - last 24 hr 11/28/21 11/29/21 16:21 05:58 MCV 101.1 H MCH 33.0 MCHC 32.6 RDW 15.6 Plt Count 200 MPV 10.5 Absolute Nucleated RBC 0.000 Nucleated RBC % (auto) 0.0 Anion Gap 14 Estim Creat Clear Calc 60.0 Estimated GFR 45 Random Glucose 131 H Calcium 9.2 Assessment and Plan (1) First degree AV block: Status: Acute (2) Acute on chronic respiratory failure with hypoxia: Status: Acute Plan This is a 76 year old M with a PMH of HFpEF, ILD with chronic resp. failure with hypoxia on 1L at home, morbid obesity, PAF - on Xarelto + Amiodarone who presents to the hospital with several days of progressive dyspnea and hypoxia, particularly with exertion. Acute on Chronic Respiratory Failure with hypoxia remains on 4L by NC (baseline 1L) wean as tolerated likely secondary to fluid overload from acute CHF Acute on Chronic HFpEF good urine output on lasix drip - negative 3.3L now continue with the current dose for now i/o; BMP daily cardiology following Bradycardia with marked first degree a-v block amiodorone and propranolol on hold plan for pacemaker 11/02 NPO at midnight hold xarelto (INR falsely elevated due to AC with xarelto) Hyponatremia sodium 128, appears somewhat chronic r/t fluid overload from CHF follow BMP Chronic COPD continue his baseline inhalers HTN continue baseline meds PAF Xarelto BB/Amio on hold -- see bradycardia above MARY not on cpap at home Morbid Obesity BMI 49.1 likely contributing to worsening of his respiratory/cardiac conditions weight loss Full Code DVT pptx, Xarelto on hold for procedure, mechanical boots Attending: Dr. Montoya Reason for continued hospitalization: Still fluid overloaded requiring IV lasix drip. Also bradycardic and will need PPM Quality Stroke Does the patient have a stroke diagnosis?: No VTE Prior VTE?: No VTE Risk Level:: Medical - moderate - high VTE Device Contraindication: Treatment Not Indicated VTE Drug Contraindication: N/A - Med Ordered
[2021-11-29] MEDS: 0.9 % Sodium Chloride Flush 3 ML SYRINGE IVFLUSH ×2 (17:10)
[2021-11-29] MEDS: allopurinoL 100 MG TABLET 200 MG PO (20:36)
[2021-11-30] VITALS (10 sets, daily range): BP systolic 92–151; BP diastolic 36–65; PULSE 59–72; RESP 14–20; TEMP 35.6–36.4; O2SAT 95–98
[2021-11-30 06:24] LABS: INTERNATIONAL NORM RATIO 1.6 (0.9-1.1); Prothrombin Time 18.3 SEC (9.9-13.0)
[2021-11-30 06:27] LABS: Partial Thromboplastin Time 43.7 SEC (24.1-38.0)
[2021-11-30 07:37] LABS: Blood Urea Nitrogen 33 mg/dL (9-16); Calcium 9.2 mg/dL (8.4-10.2); Chloride 80 mmol/L (96-108); Creatinine Clr Calc Pharmacy 50.9; Estimated Glomerular Filt Rate 37; Glucose Random 111 mg/dL (60-115); Potassium 4.5 mmol/L (3.3-5.1); Sodium 129 mmol/L (135-145)
[2021-11-30 07:54] LABS: Anion Gap 10 (12-20)
[2021-11-30 08:06] LABS: Carbon Dioxide 45 mmol/L (22-29)
[2021-11-30] MEDS: Amoxicillin/Potassium Clav 875 MG TABLET PO ×2 (08:47→21:21)
[2021-11-30] MEDS: Multivitamin TABLET 1 TAB PO (08:47)
[2021-11-30] MEDS: Losartan Potassium 50 MG TABLET PO (08:47)
[2021-11-30] MEDS: 0.9 % Sodium Chloride Flush 3 ML SYRINGE IVFLUSH ×2 (08:47→21:21)
[2021-11-30] MEDS: Cholecalciferol (Vitamin D3) 25 MCG TABLET PO (08:47)
[2021-11-30] MEDS: Atorvastatin Calcium 20 MG TABLET PO (08:47)
--- NOTE | 2021-11-30 10:36 | P.PNCA_ITS ---
Subjective Subjective Date of Service: 11/30/21 Principal diagnosis: CHF, bradycardia Interval history: Patient denying any shortness of breath. Leg edema is improved. Creatinine is further increased. Sodium is low, has been low for the last few days. No neurologic symptoms. His Xarelto has been withheld yesterday. Denies any other cardiac symptoms at this point time. Remains bradycardic with marked first- degree AV block. Blood pressure is optimal. Review of Systems Constitutional: Reports no additional constitutional complaints Cardiovascular: Denies chest pain, Denies pedal edema, Denies lightheadedness, Denies Loss of Consciousness, Denies palpitations and Reports dyspnea on exertion Respiratory: Reports dyspnea on exertion Gastrointestinal: Reports no additional gastrointestinal complaints Genitourinary: Reports no additional male genitourinary complaints Reports system reviewed and no additional complaints, except as documented Endocrine: Denies palpitations Physical Exam Vital Signs: Last Vital Signs Temp 96.8 F 11/30/21 07:39 Pulse 59 11/30/21 07:41 Resp 18 11/30/21 07:41 BP 151/65 H 11/30/21 07:39 Pulse Ox 98 11/30/21 07:39 Oxygen Flow Rate 2 11/26/21 12:10 BMI result Body Mass Index 49.0 Const General: cooperative, comfortable, no acute distress, alert and awake Nutritional Appearance: obese Orientation/consciousness: patient oriented x3 Neck Neck: Yes trachea midline, Yes supple and Yes no JVD Resp Effort & Inspection: normal respiratory effort Auscultation: clear to auscultation bilaterally and diminished lung sounds Cardio Jugular venous distension: no JVD Rate: bradycardic Rhythm: regular rhythm Heart sounds: S1 normal heart sound present, S2 normal heart sound present, no click, no gallops, no murmurs and no rubs GI Inspection: Yes obesity Auscultation: normal bowel sounds Skin General skin exam: no rashes or lesions noted Neuro General: patient oriented x3 and no focal motor deficits Extrem General: No clubbing, No cyanosis and Yes edema (Much improved) Objective Labs and Meds Result diagrams: 11/28/21 16:21 11/30/21 06:00 Lab results: Laboratory Results - last 24 hr 11/30/21 11/30/21 11/30/21 06:00 06:00 06:00 PT 18.3 H INR 1.6 H APTT 43.7 H Sodium 129 L Potassium 4.5 Chloride 80 L Carbon Dioxide 45 H* D Anion Gap 10 L BUN 33 H Creatinine 1.79 H Estim Creat Clear Calc 50.9 Estimated GFR 37 Random Glucose 111 Calcium 9.2 Blood Type O Positive Antibody Screen NEGATIVE Imaging Radiologist's impression: Impressions Chest CT 11/28/21 12:12 IMPRESSION: Significant worsening of pulmonary findings with new areas of ground-glass attenuation and denser airspace disease, linear scarring or atelectasis throughout the lungs. Post COVID fibrotic changes should be considered. Differential would include other viral pneumonia, nonspecific interstitial pneumonitis, changes related to collagen vascular disease or drug toxicity. There are small bilateral pleural effusions and the heart is enlarged. Some element of mild CHF should also be considered. Fleischner guidelines were followed. Progress Note: A&P Assessment and plan (1) CHF (congestive heart failure): Status: Acute Assessment and Plan: Congestive heart failure which has improved now with increasing creatinine with diuresis. This is a difficult clinical problem in this patient. This could be due to multiple factors including stiff ventricle and significant advanced diastolic dysfunction, bradycardia with reduced cardiac output with the very narrow pressure volume loop. Agree with holding diuretics. Pacemaker therapy as below hopefully to improve AV synchrony and help his heart failure syndrome. Also has other factors for his chronic respiratory failure including morbid obesity as well as worsening interstitial lung disease. Pulmonary consult should be obtained. Continue oxygen therapy. Supportive care. (2) First degree AV block: Status: Acute Assessment and Plan: Marked first-degree AV block leading to poor AV synchrony and atrial contraction during late systole or very early diastole. This is ineffective for cardiac function. Will perform pacing with narrowing of the [place] interval with hopefully improving AV synchrony and his heart failure syndrome as well as improving his heart rate. For now hold off on amiodarone till we obtain a pulmonary consult. He does have mild hyponatremia and unless this is an absolute contraindication from anesthesia perspective, I think pacemaker will help his overall cardiac status and medical status. (3) Paroxysmal atrial fibrillation: Status: Acute Assessment and Plan: Paroxysmal atrial fibrillation has remained suppressed and has done well in the past with heart failure syndrome. For now will continue to pursue rhythm control approach although given his lung finding will hold off on amiodarone therapy and evaluate from pulmonary perspective for possible amiodarone toxicity. Pacemaker as above. Also noted to be gradually getting more anemic which is concerning. Hold off on Xarelto and obtain GI consult as well as Hematology consult. Consider transfusion 1 unit to help overall cardiac status. Will follow with you. Fall Risk Details Current Medications: Current Medications Acetaminophen (Acetaminophen 325 Mg Tablet) 650 mg PO Q6H PRN PRN Reason: Pain, Mild (Pain Scale 1-3) Allopurinol (Allopurinol 100 Mg Tablet) 200 mg PO BEDTIME [facility] Last Admin: 11/29/21 20:36 Dose: 200 mg Documented by: Amoxicillin/Clavulanate Potassium (Amoxicillin/Potassium Clav 875 Mg Tablet) 875 mg PO BID [facility] Last Admin: 11/30/21 08:47 Dose: 875 mg Documented by: Atorvastatin Calcium (Atorvastatin Calcium 20 Mg Tablet) 20 mg PO DAILY [facility] Last Admin: 11/30/21 08:47 Dose: 20 mg Documented by: Cefazolin Sodium/Dextrose (Ancef) 2 gm in 50 mls @ 100 mls/hr IV PREOP ONE Stop: 11/30/21 14:29 Losartan Potassium (Losartan Potassium 50 Mg Tablet) 50 mg PO DAILY [facility]; Protocol Last Admin: 11/30/21 08:47 Dose: 50 mg Documented by: Multivitamins/Vitamin C (Multivitamin Tablet) 1 tab PO DAILY [facility] Last Admin: 11/30/21 08:47 Dose: 1 tab Documented by: Ondansetron HCl (Ondansetron Hcl 4 Mg/2 Ml Vial) 4 mg IVPUSH Q8H PRN PRN Reason: Nausea and Vomiting Pharmacy Consult (Consult Rx Perform Med Rec) 1 each MISCELLANE ONCE PRN PRN Reason: Consult order Sodium Chloride (0.9 % Sodium Chloride Flush 3 Ml Syringe) 3 ml IVFLUSH QSHIFT [facility] Last Admin: 11/30/21 08:47 Dose: 3 ml Documented by: Tiotropium [place] (Tiotropium [place] 18 Mcg Cap.W.Dev) 1 puff INHALE RDAILY [facility] Last Admin: 11/30/21 07:39 Dose: 1 puff Documented by: Vitamin D (Cholecalciferol (Vitamin D3) 25 Mcg Tablet) 25 mcg PO DAILY [facility] Last Admin: 11/30/21 08:47 Dose: 25 mcg Documented by: Time Spent With Patient Time: Total time spent is greater than 50% in coordination of care (as documented) at patient's floor/unit and/or counseling patient: Time with patient: 25 - 35 minutes Progress Note: Quality Stroke Does the patient have a stroke diagnosis?: No Procedures Date of Service Date of Service: 11/30/21
--- NOTE | 2021-11-30 12:03 | P.CONPL_ITS ---
History of Present Illness History of Present Illness Consult date: 11/30/21 Reason for consult: dyspnea, cough, pulmonary fibrosis and abnormal CXR/CT Chief complaint: Congestive heart failure, bradycardia Narrative: This 76 years old gentleman is a known case of chronic idiopathic pulmonary fibrosis, and some degree of chronic obstructive pulmonary disease. His baseline treatment include Spiriva HandiHaler 1 capsule by inhalation daily, albuterol MDI only p.r.n.. O2 1 L/minute. Now he is admitted with a few weeks history of gradually increasing shortness of breath. Denies fever chills, or frequent expectoration. He did have a bout of nose bleed 2 weeks ago and was treated with nasal packing. This gentleman also has history of the chronic paroxysmal atrial fibrillation and has been on anticoagulation with Xarelto. He has been treated with amiodarone 200 mg half tablet daily, which is now on hold. Because of his gross obesity, we have discussed with him about sleep apnea in the past and need to do a sleep study but he has declined. Patient has chronic stasis edema of the lower extremities due to a component of chronic congestive heart failure. During this admission he is found to have bradycardia due to 1st and second- degree heart block and patient is scheduled for a demand pacemaker placement. Review of Systems Review of Systems: Yes all other systems are reviewed and are negative Eyes: Eyes: Reports no additional eye complaints Comments: History of the recent nose bleed, Currently inactive Cardiovascular: Cardiovascular: Reports irregular heart rhythm, Reports leg edema and Reports dyspnea Respiratory: Respiratory: Reports as per HPI and Reports dyspnea Gastrointestinal: Gastrointestinal: Reports no additional gastrointestinal complaints Genitourinary: Genitourinary: Reports no additional male genitourinary complaints Musculoskeletal: Musculoskeletal: Reports no additional musculoskeletal complaints Integumentary/Breasts: Skin/Breast: Reports system reviewed and no additional complaints, except as docu Neurologic: Reports system reviewed and no additional complaints, except as documented Psychiatric: Psychiatric: Reports no additional psychiatric complaints [facility] Past Medical History Medical History (Updated 11/30/21 @ 12:14 by Marsha Rosales MD) (HFpEF) heart failure with preserved ejection fraction Acute on chronic diastolic (congestive) heart failure Aortic stenosis CHF (congestive heart failure) CKD (chronic kidney disease) COPD (chronic obstructive pulmonary disease) HTN (hypertension) Hypoxemia IPF (idiopathic pulmonary fibrosis) Morbid obesity Paroxysmal atrial fibrillation Pulmonary fibrosis Restrictive lung disease Family History Family History Father Cancer Mother Dementia Surgical History Surgical History History of surgery on wrist Social History Social History Household Members: Spouse Housing: House Do you presently have visiting nurse or other home services: No Alcohol intake: never Patient Tobacco Use Status: Never used Tobacco Advance Directives Date on File: 06/08/21 service: No Current occupational status: retired [employer] Allergies Allergy/AdvReac Type Severity Reaction Status Date / Time No Known Allergies Allergy Verified 11/26/21 12:10 [No Known Allergies*] Active Medications: Current Medications Acetaminophen (Acetaminophen 325 Mg Tablet) 650 mg PO Q6H PRN PRN Reason: Pain, Mild (Pain Scale 1-3) Albuterol/Ipratropium (Albuterol/Iprat 2.5/0.5mg 3 Ml Ampul.Neb) 3 ml INHALE RQ6H WHILE AWAKE [facility] Allopurinol (Allopurinol 100 Mg Tablet) 200 mg PO BEDTIME [facility] Last Admin: 11/29/21 20:36 Dose: 200 mg Documented by: Amoxicillin/Clavulanate Potassium (Amoxicillin/Potassium Clav 875 Mg Tablet) 875 mg PO BID [facility] Last Admin: 11/30/21 08:47 Dose: 875 mg Documented by: Atorvastatin Calcium (Atorvastatin Calcium 20 Mg Tablet) 20 mg PO DAILY [facility] Last Admin: 11/30/21 08:47 Dose: 20 mg Documented by: Cefazolin Sodium/Dextrose (Ancef) 2 gm in 50 mls @ 100 mls/hr IV PREOP ONE Stop: 11/30/21 14:29 Losartan Potassium (Losartan Potassium 50 Mg Tablet) 50 mg PO DAILY [facility]; Protocol Last Admin: 11/30/21 08:47 Dose: 50 mg Documented by: Methylprednisolone Sodium Succinate (Methylprednisolone Sod Succ 40 Mg/Ml Vial) 40 mg IVPUSH Q8H [facility] Multivitamins/Vitamin C (Multivitamin Tablet) 1 tab PO DAILY [facility] Last Admin: 11/30/21 08:47 Dose: 1 tab Documented by: Ondansetron HCl (Ondansetron Hcl 4 Mg/2 Ml Vial) 4 mg IVPUSH Q8H PRN PRN Reason: Nausea and Vomiting Pharmacy Consult (Consult Rx Perform Med Rec) 1 each MISCELLANE ONCE PRN PRN Reason: Consult order Sodium Chloride (0.9 % Sodium Chloride Flush 3 Ml Syringe) 3 ml IVFLUSH QSHIFT [facility] Last Admin: 11/30/21 08:47 Dose: 3 ml Documented by: Tiotropium [place] (Tiotropium [place] 18 Mcg Cap.W.Dev) 1 puff INHALE RDAILY [facility] Last Admin: 11/30/21 07:39 Dose: 1 puff Documented by: Vitamin D (Cholecalciferol (Vitamin D3) 25 Mcg Tablet) 25 mcg PO DAILY [facility] Last Admin: 11/30/21 08:47 Dose: 25 mcg Documented by: Home Medications Medication Instructions Recorded Confirmed Last Taken Type allopurinol 100 mg tablet 200 mg PO BEDTIME tab 07/25/20 11/26/21 11/25/21 History [id number] 1 tab PO Q6H PRN 07/25/20 11/26/21 11/26/21 History 50 mg-325 mg-40 mg tablet cholecalciferol (vitamin D3) 25 25 mcg PO DAILY 07/25/20 11/26/21 11/26/21 History mcg (1,000 unit) capsule multivitamin 1 tab PO DAILY 07/25/20 11/26/21 11/26/21 History losartan 50 mg tablet 50 mg PO DAILY 01/30/21 11/26/21 11/26/21 History atorvastatin 20 mg tablet 20 mg PO DAILY 06/06/21 11/26/21 11/26/21 History amoxicillin 875 mg-potassium 1 tab PO BID 11/26/21 11/26/21 11/26/21 History clavulanate 125 mg tablet furosemide 20 mg tablet 20 mg PO DAILY@1700 11/26/21 11/26/21 11/25/21 History omega 9-gmw-axq-fish oil 1,200 mg 1 cap PO DAILY 11/26/21 11/26/21 11/26/21 History (144 mg-216 mg) capsule (Fish Oil) propranolol 60 mg tablet 1 tab PO BID 11/26/21 11/26/21 11/26/21 History Physical Exam Vital Signs: Vital Signs: Last Vital Signs Temp 96.8 F 11/30/21 11:47 Pulse 62 11/30/21 11:47 Resp 18 11/30/21 11:47 BP 126/59 L 11/30/21 11:47 Pulse Ox 95 11/30/21 11:47 Oxygen Flow Rate 2 11/26/21 12:10 BMI result Body Mass Index 49.0 Const: Other: Face is round and of the reddish color, He is grossly obese. General: comfortable, no acute distress, alert and awake Orientation/consciousness: patient oriented x3 HENMT: Other: No active bleed Head: Yes normal to inspection General nose exam: No nasal polyps present and No nasal discharge present Face and sinus: Yes sinuses nontender Mouth: oropharynx normal Throat: Yes posterior oropharynx normal Eyes: General: appearance normal, both eyes and all related structures Neck: Neck: Yes normal visual inspection (Short and obese), Yes no lymphadenopathy, Yes trachea midline and Yes no JVD Thyroid: Thyroid normal Chest: Chest palpation & inspection: normal inspection of the chest, normal palpation of entire chest wall and no tenderness Resp: Other: Percussion note is resonant, breath sounds are diminished especially over the basilar areas. Patient has inspiratory crackles over the lower lobes and basilar area. Cardio: Palpation: normal PMI Rate: regular rate Rhythm: abnormal rhythm Heart sounds: no gallops and no murmurs GI: Palpation (GI): Soft to palpation, nontender, No hepatosplenomegaly present and no masses Auscultation: normal bowel sounds Back/Spine/Pelvis: Other: Not examine Thoracic/Lumbar Spine: thoracic and lumbar spine normal to inspection Skin: General skin exam: rashes and/or lesions noted (Has superficial excoriations and read a spots were both legs) Neuro: General: patient oriented x3, No gait normal (Non ambulatory at this time) and no focal motor deficits Cranial nerves: Yes CN's II-XII intact bilaterally Extrem: General: Yes normal to inspection, Yes no calf tenderness and Yes venous stasis dermatitis Psych: Appearance: grossly normal Speech and movement: Normal speech and movement present Results Laboratory Findings CBC and BMP: 11/28/21 16:21 11/30/21 06:00 ABG, PT/INR, D-dimer: PT/INR, D-dimer PT 18.3 SEC (9.9-13.0) H 11/30/21 06:00 INR 1.6 (0.9-1.1) H 11/30/21 06:00 Abnormal lab findings: Abnormal Labs 11/26/21 11/26/21 11/26/21 12:10 12:24 12:24 RBC 2.80 L Hgb 9.0 L Hct 28.4 L MCV 101.4 H Immature Gran % (Auto) 1.6 H Neut % (Auto) 77.0 H Lymph % (Auto) 13.1 L Lymph # (Auto) 1.1 L Abs Immat Gran (auto) 0.13 H PT 19.3 H INR 1.7 H APTT ABG pCO2 at Pt Temp 63 H* ABG HCO3 39 H Sodium Chloride Carbon Dioxide Anion Gap BUN Creatinine Random Glucose B-Natriuretic Peptide 11/26/21 11/26/21 11/27/21 12:24 12:24 06:11 RBC 3.09 L Hgb 9.9 L Hct 31.2 L MCV 101.0 H Immature Gran % (Auto) Neut % (Auto) Lymph % (Auto) Lymph # (Auto) Abs Immat Gran (auto) PT INR APTT ABG pCO2 at Pt Temp ABG HCO3 Sodium 126 L Chloride 88 L Carbon Dioxide 34 H Anion Gap 9 L BUN 22 H Creatinine Random Glucose 207 H D B-Natriuretic Peptide 370 H 11/27/21 11/27/21 11/28/21 06:11 06:11 05:28 RBC Hgb Hct MCV Immature Gran % (Auto) Neut % (Auto) Lymph % (Auto) Lymph # (Auto) Abs Immat Gran (auto) PT INR APTT ABG pCO2 at Pt Temp ABG HCO3 Sodium 130 L 131 L Chloride 88 L 88 L Carbon Dioxide 34 H 37 H Anion Gap 11 L BUN 22 H 22 H Creatinine Random Glucose B-Natriuretic Peptide 287 H 11/28/21 11/29/21 11/30/21 16:21 05:58 06:00 RBC 2.67 L Hgb 8.8 L Hct 27.0 L MCV 101.1 H Immature Gran % (Auto) Neut % (Auto) Lymph % (Auto) Lymph # (Auto) Abs Immat Gran (auto) PT 18.3 H INR 1.6 H APTT 43.7 H ABG pCO2 at Pt Temp ABG HCO3 Sodium 128 L Chloride 82 L Carbon Dioxide 37 H Anion Gap BUN 29 H Creatinine 1.52 H Random Glucose 131 H B-Natriuretic Peptide 11/30/21 06:00 RBC Hgb Hct MCV Immature Gran % (Auto) Neut % (Auto) Lymph % (Auto) Lymph # (Auto) Abs Immat Gran (auto) PT INR APTT ABG pCO2 at Pt Temp ABG HCO3 Sodium 129 L Chloride 80 L Carbon Dioxide 45 H* D Anion Gap 10 L BUN 33 H Creatinine 1.79 H Random Glucose B-Natriuretic Peptide Diagnostic Findings Chest x-ray: report reviewed and image reviewed CT scan - chest: report reviewed and image reviewed Assessment and Plan (1) Morbid obesity: Status: Acute (2) Restrictive lung disease: Status: Acute (3) COPD (chronic obstructive pulmonary disease): Status: Acute (4) Acute on chronic respiratory failure with hypoxia: Status: Acute (5) Pulmonary fibrosis: Status: Acute Plan This gentleman who has morbid obesity is typical case of the MARY/hypoventilation syndrome. But in the past he has declined to have any sleep study or management for this problem. He has chronic interstitial lung disease/pulmonary fibrosis, has been only bord kelli symptomatic, has required O2 1 L/minute. Currently he seems to have progressive ILD, and in addition to pulmonary fibrosis may have a component of acute alveolitis. Sputum culture and Gram stain is ordered to make sure that he does not have active respiratory infection. His chronic respiratory failure mainly in the form of hypoxemia is somewhat worsened at present. He coughed up a goblet off sosa phlegm and this may be due to minimal bleeding, as he is on anticoagulants. I notice that patient has been on amiodarone. In view of interstitial lung disease/pulmonary fibrosis , we should avoid using this agent. PLAN: Sputum for Gram stain and culture is ordered. Incentive spirometry q.8 hours. O2 2-3 L/minute to keep O2 sat above 90%. Because of increased interstitial lung disease I have added Solu-Medrol 40 mg IV Q 8 hours for a few days, then he would need a short course of prednisone. DC Spiriva and start DuoNeb updrafts Q 6 hours while awake. Thank you her ostomy to see this patient I will be glad to follow him along. Procedures Date of Service Date of Service: 11/30/21
--- NOTE | 2021-11-30 12:27 | MHC.CM.PN ---
PLAN IS PACER TODAY. PATIENT STILL WITH [facility]. POSSIBLE REHAB UPON DISCHARGE WILL DISCUSS WITH PATIENT FOR PREFERENCE.
--- NOTE | 2021-11-30 12:44 | HO.PM.IMPN ---
Subjective Subjective Date of Service: 11/30/21 Interval History: Seen and examined this morning No chest pain, no shortness of breath Lower extremity edema improving States that he ?always coughs? denies any change from baseline Review of Systems Review of Systems: Yes all other systems are reviewed and are negative Constitutional Constitutional: Denies chills and Denies fever(s) Cardiovascular Cardiovascular: Denies chest pain and Denies dyspnea Respiratory Respiratory: Reports cough and Denies dyspnea Gastrointestinal Gastrointestinal: Denies abdominal pain Physical Exam Vital Signs: Vital Signs: Last Vital Signs Temp 96.8 F 11/30/21 11:47 Pulse 62 11/30/21 11:47 Resp 18 11/30/21 11:47 BP 126/59 L 11/30/21 11:47 Pulse Ox 95 11/30/21 11:47 Oxygen Flow Rate 2 11/26/21 12:10 BMI result Body Mass Index 49.0 Const: General: cooperative, comfortable, alert and awake Nutritional Appearance: obese Resp: Other: diminished breath sounds; no rales Effort & Inspection: normal respiratory effort and able to speak in complete sentences GI: Inspection: No distended and Yes obesity Palpation (GI): Soft to palpation and nontender Extrem: Other: leg edema improving Objective Data Active Medications Acetaminophen (Acetaminophen 325 Mg Tablet) 650 mg PO Q6H PRN PRN Reason: Pain, Mild (Pain Scale 1-3) Albuterol/Ipratropium (Albuterol/Iprat 2.5/0.5mg 3 Ml Ampul.Neb) 3 ml INHALE RQ6H WHILE AWAKE [facility] Allopurinol (Allopurinol 100 Mg Tablet) 200 mg PO BEDTIME [facility] Last Admin: 11/29/21 20:36 Dose: 200 mg Documented by: ALEJANDRA Amoxicillin/Clavulanate Potassium (Amoxicillin/Potassium Clav 875 Mg Tablet) 875 mg PO BID [facility] Last Admin: 11/30/21 08:47 Dose: 875 mg Documented by: CLARI Atorvastatin Calcium (Atorvastatin Calcium 20 Mg Tablet) 20 mg PO DAILY [facility] Last Admin: 11/30/21 08:47 Dose: 20 mg Documented by: CLARI Cefazolin Sodium/Dextrose (Ancef) 2 gm in 50 mls @ 100 mls/hr IV PREOP ONE Stop: 11/30/21 14:29 Losartan Potassium (Losartan Potassium 50 Mg Tablet) 50 mg PO DAILY [facility]; Protocol Last Admin: 11/30/21 08:47 Dose: 50 mg Documented by: CLARI Methylprednisolone Sodium Succinate (Methylprednisolone Sod Succ 40 Mg/Ml Vial) 40 mg IVPUSH Q8H [facility] Multivitamins/Vitamin C (Multivitamin Tablet) 1 tab PO DAILY [facility] Last Admin: 11/30/21 08:47 Dose: 1 tab Documented by: CLARI Ondansetron HCl (Ondansetron Hcl 4 Mg/2 Ml Vial) 4 mg IVPUSH Q8H PRN PRN Reason: Nausea and Vomiting Pharmacy Consult (Consult Rx Perform Med Rec) 1 each MISCELLANE ONCE PRN PRN Reason: Consult order Sodium Chloride (0.9 % Sodium Chloride Flush 3 Ml Syringe) 3 ml IVFLUSH QSHIFT [facility] Last Admin: 11/30/21 08:47 Dose: 3 ml Documented by: CLARI Tiotropium Artie (Tiotropium Artie 18 Mcg Cap.W.Dev) 1 puff INHALE RDAILY [facility] Last Admin: 11/30/21 07:39 Dose: 1 puff Documented by: ALEXANDRO Vitamin D (Cholecalciferol (Vitamin D3) 25 Mcg Tablet) 25 mcg PO DAILY [facility] Last Admin: 11/30/21 08:47 Dose: 25 mcg Documented by: CLARI Labs CBC & Chem 7: 11/28/21 16:21 11/30/21 06:00 Labs: Laboratory Results - last 24 hr 11/30/21 11/30/21 11/30/21 06:00 06:00 06:00 PT 18.3 H INR 1.6 H APTT 43.7 H Anion Gap 10 L Estim Creat Clear Calc 50.9 Estimated GFR 37 Random Glucose 111 Calcium 9.2 Blood Type O Positive Antibody Screen NEGATIVE Assessment and Plan (1) CHF (congestive heart failure): Status: Acute (2) First degree AV block: Status: Acute (3) Acute on chronic respiratory failure with hypoxia: Status: Acute Plan This is a 76 year old M with a PMH of HFpEF, ILD with chronic resp. failure with hypoxia on 1L at home, morbid obesity, PAF - on Xarelto + Amiodarone who presents to the hospital with several days of progressive dyspnea and hypoxia, particularly with exertion. AJAY creatinine up to 1.79 secondary to diuresis with IV Lasix -Will stop Lasix -hold losartan -follow BMP daily Acute on Chronic Respiratory Failure with hypoxia likely secondary to fluid overload from acute CHF on a background of pulmonary fibrosis/ILD and obesity hypoventilation down to 2L by NC (baseline 1L), wean as tolerated Chest CT showing worsening of pulmonary findings -Seen by pulmonology, rec to start systemic steroids and obtain sputum culture -amiodorone has been on hold due to concern for worsening pulmonary fibrosis Acute on Chronic HFpEF negative 4.7 L initially treated with lasix drip, but creatinine has increased, will d/c lasix follow i/o; BMP daily cardiology following Bradycardia with marked first degree a-v block amiodorone and propranolol on hold plan for pacemaker 11/02 NPO at midnight hold xarelto (INR falsely elevated due to AC with xarelto) Hyponatremia sodium 129, appears somewhat chronic r/t fluid overload from CHF follow BMP Chronic COPD continue his baseline inhalers HTN continue baseline meds PAF Xarelto on hold for PM BB/Amio on hold - see bradycardia above MARY not on cpap at home Morbid Obesity BMI 49.1 contributing to worsening of his respiratory/cardiac conditions weight loss Full Code DVT pptx, Xarelto on hold for procedure, mechanical boots Attending: Dr. Montoya Reason for continued hospitalization: Respiratory failure, bradycardic requiring PPM; systemic IV steroids for ILD flare Quality Stroke Does the patient have a stroke diagnosis?: No VTE Prior VTE?: No VTE Risk Level:: Medical - moderate - high VTE Device Contraindication: Treatment Not Indicated VTE Drug Contraindication: N/A - Med Ordered
[2021-11-30] MEDS: methylPREDNISolone Sod Succ 40 MG/ML VIAL IVPUSH ×2 (12:47→21:21)
--- NOTE | 2021-11-30 13:59 | MHC.SHP ---
Pre-Procedural Eval Section A Date of Service: 11/30/21 Section B Chief Complaint: Congestive heart failure, bradycardia Allergies: Allergies Allergy/AdvReac Type Severity Reaction Status Date / Time No Known Allergies Allergy Verified 11/26/21 12:10 [No Known Allergies*] Plan I have reviewed the history and physical and performed a pertinent physical examination on my patient. No changes have occurred unless specified. Plan for dual chamber pacemaker today. Discussed the risks benefits and alternatives with patient which he understood and agreed to proceed.
--- NOTE | 2021-11-30 14:25 | HO.ANESPROP2 ---
[facility] Active Problems Active Problems: All Active Problems (Updated 11/30/21 @ 12:40 by Debra Porter PA-C) Chronic hypoxemic respiratory failure (Acute) Acute dyspnea (Acute) Atrial fibrillation with slow ventricular response (Acute) Chronic hyponatremia (Acute) Acute on chronic respiratory failure with hypoxia (Acute) Sinus bradycardia (Acute) First degree AV block (Acute) CHF (congestive heart failure) (Acute) Paroxysmal atrial fibrillation (Acute) Aortic stenosis (Acute) Hypoxemia (Acute) Pulmonary fibrosis (Acute) COPD (chronic obstructive pulmonary disease) (Acute) Restrictive lung disease (Acute) CKD (chronic kidney disease) (Acute) Morbid obesity (Acute) Past Medical History Medical History Aortic stenosis CHF (congestive heart failure) CKD (chronic kidney disease) COPD (chronic obstructive pulmonary disease) HTN (hypertension) Hypoxemia IPF (idiopathic pulmonary fibrosis) Morbid obesity Paroxysmal atrial fibrillation Pulmonary fibrosis Restrictive lung disease Family History Family History Father Cancer Mother Dementia Surgical History Surgical History History of surgery on wrist History of Problems with Anesthesia: No Social History Social History Household Members: Spouse Housing: House Do you presently have visiting nurse or other home services: No Alcohol intake: never Patient Tobacco Use Status: Never used Tobacco Advance Directives Date on File: 06/08/21 service: No Current occupational status: retired Meds Allergies Allergy/AdvReac Type Severity Reaction Status Date / Time No Known Allergies Allergy Verified 11/26/21 12:10 [No Known Allergies*] Active Medications: Current Medications Acetaminophen (Acetaminophen 325 Mg Tablet) 650 mg PO Q6H PRN PRN Reason: Pain, Mild (Pain Scale 1-3) Albuterol/Ipratropium (Albuterol/Iprat 2.5/0.5mg 3 Ml Ampul.Neb) 3 ml INHALE RQ6H WHILE AWAKE [facility] Last Admin: 11/30/21 14:18 Dose: Not Given Documented by: Allopurinol (Allopurinol 100 Mg Tablet) 200 mg PO BEDTIME [facility] Last Admin: 11/29/21 20:36 Dose: 200 mg Documented by: Amoxicillin/Clavulanate Potassium (Amoxicillin/Potassium Clav 875 Mg Tablet) 875 mg PO BID [facility] Last Admin: 11/30/21 08:47 Dose: 875 mg Documented by: Atorvastatin Calcium (Atorvastatin Calcium 20 Mg Tablet) 20 mg PO DAILY [facility] Last Admin: 11/30/21 08:47 Dose: 20 mg Documented by: Cefazolin Sodium/Dextrose (Ancef) 2 gm in 50 mls @ 100 mls/hr IV PREOP ONE Stop: 11/30/21 14:29 Losartan Potassium (Losartan Potassium 50 Mg Tablet) 50 mg PO DAILY [facility]; Protocol Last Admin: 11/30/21 08:47 Dose: 50 mg Documented by: Methylprednisolone Sodium Succinate (Methylprednisolone Sod Succ 40 Mg/Ml Vial) 40 mg IVPUSH Q8H [facility] Last Admin: 11/30/21 12:47 Dose: 40 mg Documented by: Multivitamins/Vitamin C (Multivitamin Tablet) 1 tab PO DAILY [facility] Last Admin: 11/30/21 08:47 Dose: 1 tab Documented by: Ondansetron HCl (Ondansetron Hcl 4 Mg/2 Ml Vial) 4 mg IVPUSH Q8H PRN PRN Reason: Nausea and Vomiting Pharmacy Consult (Consult Rx Perform Med Rec) 1 each MISCELLANE ONCE PRN PRN Reason: Consult order Sodium Chloride (0.9 % Sodium Chloride Flush 3 Ml Syringe) 3 ml IVFLUSH QSHIFT [facility] Last Admin: 11/30/21 08:47 Dose: 3 ml Documented by: Tiotropium [place] (Tiotropium [place] 18 Mcg Cap.W.Dev) 1 puff INHALE RDAILY [facility] Last Admin: 11/30/21 07:39 Dose: 1 puff Documented by: Vitamin D (Cholecalciferol (Vitamin D3) 25 Mcg Tablet) 25 mcg PO DAILY [facility] Last Admin: 11/30/21 08:47 Dose: 25 mcg Documented by: Home Medications Medication Instructions Recorded Confirmed Last Taken Type allopurinol 100 mg tablet 200 mg PO BEDTIME tab 07/25/20 11/26/21 11/25/21 History vqabxwbfar-gaxcoubrotulf-pfrjejer 1 tab PO Q6H PRN 07/25/20 11/26/21 11/26/21 History 50 mg-325 mg-40 mg tablet cholecalciferol (vitamin D3) 25 25 mcg PO DAILY 07/25/20 11/26/21 11/26/21 History mcg (1,000 unit) capsule multivitamin 1 tab PO DAILY 07/25/20 11/26/21 11/26/21 History losartan 50 mg tablet 50 mg PO DAILY 01/30/21 11/26/21 11/26/21 History atorvastatin 20 mg tablet 20 mg PO DAILY 06/06/21 11/26/21 11/26/21 History amoxicillin 875 mg-potassium 1 tab PO BID 11/26/21 11/26/21 11/26/21 History clavulanate 125 mg tablet furosemide 20 mg tablet 20 mg PO DAILY@1700 11/26/21 11/26/21 11/25/21 History omega 5-gsb-hdc-fish oil 1,200 mg 1 cap PO DAILY 11/26/21 11/26/21 11/26/21 History (144 mg-216 mg) capsule (Fish Oil) propranolol 60 mg tablet 1 tab PO BID 11/26/21 11/26/21 11/26/21 History Exam Exam Date and Time: November 30, 2021 1425 Height,Weight and Vital Signs: Height 5 ft 9 in Weight 150.7 kg Last Vital Signs Temp 96.3 F L 11/30/21 13:20 Pulse 63 11/30/21 13:20 Resp 20 11/30/21 13:20 BP 110/36 L 11/30/21 13:20 Pulse Ox 98 11/30/21 13:20 Oxygen Flow Rate 2 11/26/21 12:10 Pertinent Lab Results Pertinent Lab Results: Laboratory Tests 11/26/21 11/26/21 11/26/21 12:10 12:24 12:24 WBC 8.0 RBC 2.80 L Hgb 9.0 L Hct 28.4 L MCV 101.4 H MCH 32.1 MCHC 31.7 RDW 15.6 Plt Count 203 MPV 10.6 Immature Gran % (Auto) 1.6 H Neut % (Auto) 77.0 H Lymph % (Auto) 13.1 L Dubois % (Auto) 6.6 Eos % (Auto) 1.6 Baso % (Auto) 0.1 Lymph # (Auto) 1.1 L [place] # (Auto) 0.5 Eos # (Auto) 0.1 Baso # (Auto) 0.0 Abs Immat Gran (auto) 0.13 H Absolute Neuts (auto) 6.2 Absolute Nucleated RBC 0.000 Nucleated RBC % (auto) 0.0 PT 19.3 H INR 1.7 H APTT O2 Saturation 96.0 ABG pH at Pt Temp 7.39 ABG pCO2 at Pt Temp 63 H* ABG pO2 at Pt Temp 84 ABG HCO3 39 H ABG Base Excess (Actual) 11.9 Sodium Potassium Chloride Carbon Dioxide Anion Gap BUN Creatinine Estim Creat Clear Calc Estimated GFR Random Glucose Calcium Total Bilirubin AST ALT Alkaline Phosphatase Troponin I High Sens B-Natriuretic Peptide Total Protein Albumin COVID-19 (LADY) COVID-19 Clin Com Blood Type Antibody Screen 11/26/21 11/26/21 11/26/21 12:24 12:24 12:24 WBC RBC Hgb Hct MCV MCH MCHC RDW Plt Count MPV Immature Gran % (Auto) Neut % (Auto) Lymph % (Auto) Dubois % (Auto) Eos % (Auto) Baso % (Auto) Lymph # (Auto) [place]ois # (Auto) Eos # (Auto) Baso # (Auto) Abs Immat Gran (auto) Absolute Neuts (auto) Absolute Nucleated RBC Nucleated RBC % (auto) PT INR APTT O2 Saturation ABG pH at Pt Temp ABG pCO2 at Pt Temp ABG pO2 at Pt Temp ABG HCO3 ABG Base Excess (Actual) Sodium 126 L Potassium 4.7 Chloride 88 L Carbon Dioxide 34 H Anion Gap 9 L BUN 22 H Creatinine 1.18 Estim Creat Clear Calc 77.3 Estimated GFR > 60 Random Glucose 207 H D Calcium 8.6 Total Bilirubin 0.9 AST 24 ALT 13 Alkaline Phosphatase 111 Troponin I High Sens 3.7 B-Natriuretic Peptide 370 H Total Protein 6.7 Albumin 3.5 COVID-19 (LADY) Negative COVID-19 Clin Com See Note Blood Type Antibody Screen 11/27/21 11/27/21 11/27/21 06:11 06:11 06:11 WBC 9.6 RBC 3.09 L Hgb 9.9 L Hct 31.2 L MCV 101.0 H MCH 32.0 MCHC 31.7 RDW 15.4 Plt Count 214 MPV 10.9 Immature Gran % (Auto) Neut % (Auto) Lymph % (Auto) Dubois % (Auto) Eos % (Auto) Baso % (Auto) Lymph # (Auto) Dubois # (Auto) Eos # (Auto) Baso # (Auto) Abs Immat Gran (auto) Absolute Neuts (auto) Absolute Nucleated RBC 0.000 Nucleated RBC % (auto) 0.0 PT INR APTT O2 Saturation ABG pH at Pt Temp ABG pCO2 at Pt Temp ABG pO2 at Pt Temp ABG HCO3 ABG Base Excess (Actual) Sodium 130 L Potassium 4.5 Chloride 88 L Carbon Dioxide 34 H Anion Gap 13 BUN 22 H Creatinine 1.12 Estim Creat Clear Calc 81.5 Estimated GFR > 60 Random Glucose 102 D Calcium 9.2 D Total Bilirubin AST ALT Alkaline Phosphatase Troponin I High Sens B-Natriuretic Peptide 287 H Total Protein Albumin COVID-19 (LADY) COVIDYoogaia Blood Type Antibody Screen 11/28/21 11/28/21 11/29/21 05:28 16:21 05:58 WBC 8.6 RBC 2.67 L Hgb 8.8 L Hct 27.0 L MCV 101.1 H MCH 33.0 MCHC 32.6 RDW 15.6 Plt Count 200 MPV 10.5 Immature Gran % (Auto) Neut % (Auto) Lymph % (Auto) Dubois % (Auto) Eos % (Auto) Baso % (Auto) Lymph # (Auto) Dubois # (Auto) Eos # (Auto) Baso # (Auto) Abs Immat Gran (auto) Absolute Neuts (auto) Absolute Nucleated RBC 0.000 Nucleated RBC % (auto) 0.0 PT INR APTT O2 Saturation ABG pH at Pt Temp ABG pCO2 at Pt Temp ABG pO2 at Pt Temp ABG HCO3 ABG Base Excess (Actual) Sodium 131 L 128 L Potassium 4.8 4.8 Chloride 88 L 82 L Carbon Dioxide 37 H 37 H Anion Gap 11 L 14 BUN 22 H 29 H Creatinine 1.23 1.52 H Estim Creat Clear Calc 74.2 60.0 Estimated GFR 57 45 Random Glucose 108 131 H Calcium 9.0 9.2 Total Bilirubin AST ALT Alkaline Phosphatase Troponin I High Sens B-Natriuretic Peptide Total Protein Albumin COVID-19 (LADY) COVID[place] Blood Type Antibody Screen 11/30/21 11/30/21 11/30/21 06:00 06:00 06:00 WBC RBC Hgb Hct MCV MCH MCHC RDW Plt Count MPV Immature Gran % (Auto) Neut % (Auto) Lymph % (Auto) Dubois % (Auto) Eos % (Auto) Baso % (Auto) Lymph # (Auto) Dubois # (Auto) Eos # (Auto) Baso # (Auto) Abs Immat Gran (auto) Absolute Neuts (auto) Absolute Nucleated RBC Nucleated RBC % (auto) PT 18.3 H INR 1.6 H APTT 43.7 H O2 Saturation ABG pH at Pt Temp ABG pCO2 at Pt Temp ABG pO2 at Pt Temp ABG HCO3 ABG Base Excess (Actual) Sodium 129 L Potassium 4.5 Chloride 80 L Carbon Dioxide 45 H* D Anion Gap 10 L BUN 33 H Creatinine 1.79 H Estim Creat Clear Calc 50.9 Estimated GFR 37 Random Glucose 111 Calcium 9.2 Total Bilirubin AST ALT Alkaline Phosphatase Troponin I High Sens B-Natriuretic Peptide Total Protein Albumin COVID-19 (LADY) COVID-19 Clin Com Blood Type O Positive Antibody Screen NEGATIVE Airway Mallampati Class: III TM Dist: >3cm Neck ROM: Limited Heart: RRR Lungs: CTA Assessment and Plan Assessment Anesthesia Assessment: Anesthesia Plan Discussed and Chart Reviewed Final Anesthetic Review History of Problems with Anesthesia: No NPO: Yes ASA Class: III Final Preanesthetic Review: Meds/Allgs Chart Reviewed, Consent Obtained/Reviewed and Anes Risks/Benef Reviewed Patient Risk: Intermediate Procedure Risk: Low Anesthetic Plan Anesthetic Plan: MAC: Disposition: Standard PACU
--- NOTE | 2021-11-30 15:20 | P.OP_ITS ---
Operative Note Operative Note Date of Service: 11/30/21 Narrative: Preoperative diagnosis: AV block Postoperative diagnosis: Same Operation: Placement of dual-chamber permanent pacemaker with fluoroscopic guidance Surgeon: Jeff Johnson MD Specimens: None EBL: 5 cc Operative findings: The pacemaker placed was a [employer] MRI serial number [id number]. The atrial lead was a [employer] serial number [id number]. The ventricular lead was a [employer] serial number [id number]. Parameters in the right atrial lead sensing was 1.1 with impedance of 416 threshold 0.5 at 0.5 milliseconds. In the ventricular lead threshold was 0.5 volts at 0.5 milliseconds with an impedance of 600 and an R-wave of 11.3 mV. Patient tolerated procedure well. Operation in detail: The patient was brought to the operating room, placed supine on the operating room table, anesthesia moderate of ices were placed, and the patient was gently sedated. A time-out was performed confirming the correct patient site and procedure. After injection of local anesthetic, a 3 cm incision was made in the left infraclavicular region and carried down to the pectoralis fascia with electrocautery. The patient was then placed in Trendelenburg and an 18 gauge needle was used to access subclavian vein on the 1st take. And a wire was placed into the right atrium under fluoroscopic guidance. A 2nd 18 gauge needle was then used to access the subclavian vein again on the 1st ache and a wire was placed under fluoroscopic guidance and parked in the right atrium. The patient was then taken out of Trendelenburg and a pocket was formed using blunt and electrocautery dissection. The 1st 6 [place] sheath was then placed over wire and the wire and dilator were removed. The ventricular lead was then placed through the sheath and parked in the right atrium and the peel-away sheath was removed. After several attempts using a curved stylet we were eventually able to access the right ventricle and the tip of the lead was positioned at the right ventricular apex. The endocardial screw was deployed and the lead was tested with excellent parameters above. This lead was then secured with silk sutures to the pectoralis fascia. The 2nd 6 [place] sheath was then placed over the 2nd wire and a wire dilator removed. The atrial lead was then placed and parked in the right atrium. AJ stylet was used to position this in the right atrial appendage. The endocardial screws deployed and the lead was tested with excellent parameters above. This lead was also secured with silk sutures to the pectoralis fascia. The pocket was then copiously irrigated with antibiotic solution. The leads were then placed in their appropriate receptacles and the pacemaker was tested again with excellent parameters. The generator and excess lead was then placed into the pocket. The wound was then closed with a deep running 3-0 Vicryl suture followed by running 3-0 Vicryl suture and Dermabond glue in the skin. The patient was then brought back to the ICU in stable condition.
[2021-11-30] MEDS: Omeprazole 20 MG CAPSULE.DR PO (16:48)
--- NOTE | 2021-11-30 16:57 | PC.NURSE ---
Patient returned from pacemaker insertion,alert and oriented,no pain at insertion site left chest.Incision open to air, no crepitus,skin glue in place,cold pack over incision in place from PACU. Heart rhytm verified with IMC and is 100 percent V paced at this time.HR 62. Left arm in immobilizer,patient instructed not to lift/elevate left arm. Message placed on white board and under communication for all staff.
[2021-11-30] MEDS: Albuterol/Iprat 2.5/0.5MG 3 ML AMPUL.NEB INHALE (20:00)
[2021-11-30] MEDS: allopurinoL 100 MG TABLET 200 MG PO (21:21)
[2021-12-01] VITALS (9 sets, daily range): BP systolic 105–141; BP diastolic 47–68; PULSE 66–81; RESP 18–20; TEMP 35.9–37.1; O2SAT 93–97
[2021-12-01] MEDS: methylPREDNISolone Sod Succ 40 MG/ML VIAL IVPUSH ×3 (05:11→20:08)
[2021-12-01] MEDS: Omeprazole 20 MG CAPSULE.DR PO (05:11)
[2021-12-01 07:50] LABS: Anion Gap 12 (12-20); Blood Urea Nitrogen 28 mg/dL (9-16); Calcium 9.6 mg/dL (8.4-10.2); Carbon Dioxide 42 mmol/L (22-29); Chloride 81 mmol/L (96-108); Creatinine Clr Calc Pharmacy 62.1; Estimated Glomerular Filt Rate 47; Glucose Random 199 mg/dL (60-115); Potassium 4.7 mmol/L (3.3-5.1); Sodium 130 mmol/L (135-145)
[2021-12-01] MEDS: 0.9 % Sodium Chloride Flush 3 ML SYRINGE IVFLUSH ×3 (08:00→20:08)
[2021-12-01] MEDS: Albuterol/Iprat 2.5/0.5MG 3 ML AMPUL.NEB INHALE ×3 (08:03→19:58)
[2021-12-01] MEDS: Amoxicillin/Potassium Clav 875 MG TABLET PO ×2 (08:36→20:08)
[2021-12-01] MEDS: Multivitamin TABLET 1 TAB PO (08:36)
[2021-12-01] MEDS: Cholecalciferol (Vitamin D3) 25 MCG TABLET PO (08:36)
[2021-12-01] MEDS: Atorvastatin Calcium 20 MG TABLET PO (08:36)
--- NOTE | 2021-12-01 09:24 | P.PNPL_ITS ---
Subjective Subjective Date of Service: 12/01/21 Principal diagnosis: CHF, bradycardia/pulmonary fibrosis Interval history: This 76 years old gentleman, is status post placement of a pacemaker. He is doing well and denies any respiratory distress. He has his usual intermittent cough with congested feeling. He is on oxygen 2 L/minute and doing well. Objective Data Labs CBC & Chem 7: 11/28/21 16:21 12/01/21 06:17 Labs: Laboratory Results - last 24 hr 12/01/21 06:17 Sodium 130 L Potassium 4.7 Chloride 81 L Carbon Dioxide 42 H* Anion Gap 12 BUN 28 H Creatinine 1.47 H Estim Creat Clear Calc 62.1 Estimated GFR 47 Random Glucose 199 H D Calcium 9.6 Review of Systems Review of Systems Yes all other systems are reviewed and are negative Eyes: Reports no additional eye complaints Comments: History of the recent nose bleed, Currently inactive Cardiovascular: Reports irregular heart rhythm, Reports leg edema and Reports dyspnea Respiratory: Reports as per HPI and Reports dyspnea Gastrointestinal: Reports no additional gastrointestinal complaints Genitourinary: Reports no additional male genitourinary complaints Musculoskeletal: Reports no additional musculoskeletal complaints Skin/Breast: Reports system reviewed and no additional complaints, except as docu Reports system reviewed and no additional complaints, except as documented Psychiatric: Reports no additional psychiatric complaints Physical Exam Vital Signs: Vital Signs: Last Vital Signs Temp 96.6 F L 12/01/21 08:00 Pulse 69 12/01/21 08:08 Resp 20 12/01/21 08:08 BP 139/68 12/01/21 08:00 Pulse Ox 93 12/01/21 08:00 Oxygen Flow Rate 2 11/26/21 12:10 BMI result Body Mass Index 49.0 Procedures Date of Service Date of Service: 12/01/21 Assessment and Plan Assessment and plan (1) Pulmonary fibrosis: Status: Acute (2) COPD (chronic obstructive pulmonary disease): Problem details: Pulmonary function test has shown moderately severe obstructive airway disorder. There was no significant response to bronchodilator therapy. * PT HAS BEEN STARTED ON SPRIVA RESPIMAT 2 INH DAILY , WHICH HE IS USING REGULARLY , Status: Acute (3) Restrictive lung disease: Problem details: Patient is a good candidate for significant restrictive lung disorder due to morbid obesity and pulmonary fibrosis. Pulmonary function test did confirm that he has significant restrictive disorder in addition to severe obstructive disorder. He is instructed to do deep breathing exercises at least 3 times a day r egularly, which he is doing . Needs to lose weight but that seems to be impractical at this time. Status: Acute (4) Morbid obesity: Problem details: He has been obese throughout his last 20-30 years. He might be able to lose a few lbs but will not be expected to lose any significant amount. *Clinically I think he does have obstructive sleep apnea, with nocturnal hypoxemia. He is not willing to even think about being tested or using CPAP. So at this time using oxygen 1 L/minute at nighttime is somewhat helpful Status: Acute (5) Acute on chronic respiratory failure with hypoxia: Status: Acute Plan From respiratory point of view Philip is doing fairly well. He is oxygenating well with nasal cannula and O2 2 L/minute. Both lungs are well aerated with the decreased breath sounds over the lower lobes, and a few inspiratory crackles. When ready to be discharged, he should go home on oxygen 2 L/minute ( he does have O2 concentrator at home) In place of DuoNeb updrafts he can be prescribed Combivent Respimat, and he should use 1 inh q.i.d. After today, DC IV Solu-Medrol in change to prednisone 40 mg daily, with this schedule to reduce by 10 mg every week. Patient is followed up as outpatient and he should the have and follow-up appointment in 2 weeks. Time Spent With Patient Time: Total time spent is greater than 50% in coordination of care (as documented) at patient's floor/unit and/or counseling patient: Time with patient: 15 - 24 minutes Progress Note: Quality Stroke Does the patient have a stroke diagnosis?: No
[2021-12-01 11:00] LABS: Iron 39 mcg/dL (45-160); Percent Iron Saturation 9 % (15-50); Total Iron Binding Capacity 419 mcg/dL (228-428); Unsaturated Iron Binding 380 ug/dL
[2021-12-01 11:16] LABS: Hematocrit 30.5 % (42.0-52.0); Hemoglobin 9.8 g/dl (14.0-18.0); Mean Corpuscular HGB Conc 32.1 g/dl (31.0-36.0); Mean Corpuscular Hemoglobin 31.9 pg (27.0-33.0); Mean Corpuscular Volume 99.3 fL (80.0-98.0); Mean Platelet Volume 11.1 fL (9.4-12.4); Platelet Count 226 X10*3/uL (160-400); Red Blood Count 3.07 X10*6/uL (4.60-5.80); Red Cell Distribution Width 15.5 % (11.0-16.0); White Blood Count 12.5 X10*3/uL (4.8-10.8)
[2021-12-01 11:20] LABS: Ferritin 300 ng/mL (20-250)
[2021-12-01 11:36] LABS: Folate 14.9 ng/mL (> or = 4.0); Vitamin B12 1123 pg/mL (200-900)
--- NOTE | 2021-12-01 11:36 | P.PNCA_ITS ---
Subjective Subjective Date of Service: 12/01/21 Principal diagnosis: CHF, bradycardia/pulmonary fibrosis Interval history: Philip underwent pacemaker placement yesterday. Pacemaker was reprogrammed by me this morning. Patient complains of increased cough and shortness of breath. Has been mostly bed-bound since yesterday. No significant worsening in leg edema. Creatinine is improved. Still remains anemic. Small hematoma at the site of the pacemaker placement. Review of Systems Constitutional: Reports no additional constitutional complaints Cardiovascular: Reports no additional cardiovascular complaints and Reports dyspnea on exertion Respiratory: Reports chest congestion, Reports cough, Reports excessive phlegm production and Reports dyspnea on exertion Gastrointestinal: Reports no additional gastrointestinal complaints Musculoskeletal: Reports no additional musculoskeletal complaints Skin/Breast: Reports system reviewed and no additional complaints, except as do cu Reports system reviewed and no additional complaints, except as documented Endocrine: Reports no additional endocrine complaints Physical Exam Vital Signs: Last Vital Signs Temp 96.6 F L 12/01/21 08:00 Pulse 69 12/01/21 08:08 Resp 20 12/01/21 08:08 BP 139/68 12/01/21 08:00 Pulse Ox 93 12/01/21 08:00 Oxygen Flow Rate 2 11/26/21 12:10 BMI result Body Mass Index 49.0 Const General: cooperative, comfortable, alert, awake and in distress mild and respiratory Nutritional Appearance: obese Orientation/consciousness: patient oriented x3 Neck Neck: Yes trachea midline, Yes supple and Yes no JVD Resp Effort & Inspection: decreased respiratory effort Auscultation: diminished lung sounds Cardio Palpation: normal PMI Rate: regular rate Rhythm: regular rhythm Heart sounds: S1 normal heart sound present, S2 normal heart sound present, no click, no gallops and no murmurs Skin General skin exam: no rashes or lesions noted Neuro General: patient oriented x3 and no focal motor deficits Extrem General: No clubbing, No cyanosis and Yes edema Objective Labs and Meds Result diagrams: 12/01/21 06:17 12/01/21 06:17 Lab results: Laboratory Results - last 24 hr 12/01/21 12/01/21 06:17 06:17 WBC 12.5 H RBC 3.07 L Hgb 9.8 L Hct 30.5 L MCV 99.3 H MCH 31.9 MCHC 32.1 RDW 15.5 Plt Count 226 MPV 11.1 Absolute Nucleated RBC 0.000 Nucleated RBC % (auto) 0.0 Sodium 130 L Potassium 4.7 Chloride 81 L Carbon Dioxide 42 H* Anion Gap 12 BUN 28 H Creatinine 1.47 H Estim Creat Clear Calc 62.1 Estimated GFR 47 Random Glucose 199 H D Calcium 9.6 Iron 39 L TIBC 419 % Saturation 9 L Unsat Iron Binding 380 Ferritin 300 H ECG Pacemaker model: [employer] dual-chamber pacemaker was placed. Pacemaker function: other (Pacemaker was reprogrammed to reduce AV interval. Also rate response turned on) Imaging Radiologist's impression: Impressions Guidance Fluoroscopy 11/30/21 15:30 IMPRESSION: Fluoroscopy guidance for pacemaker placement. Chest X-Ray 11/30/21 15:35 IMPRESSION: Satisfactory position of left subclavian dual chamber pacemaker. No pneumothorax. Progress Note: A&P Assessment and plan (1) Acute on chronic respiratory failure with hypoxia: Status: Acute Assessment and Plan: Acute on chronic respiratory failure which is multifactorial in this elderly gentleman with obesity hypoventilation syndrome, deconditioning, progressive interstitial lung disease finding, pulmonary input appreciated. Does not appear to have overall overt heart failure although this is difficult to assess. Resume p.o. Bumex 1 mg daily. Strict intake and output chart needs to be pursued. Continue to monitor electrolytes and renal function. Pulmonary input appreciated and start steroids for interstitial lung disease. Will discontinue amiodarone therapy for now. If he has recurrent atrial fibrillation this will be very difficult to treat. Check hematocrit and if below 30 consider transfusion. Overall prognosis is guarded. Will follow with you. Hopefully with pacemaker placement improving cardiac output, this will help his heart failure syndrome and cardiorenal syndrome. (2) Paroxysmal atrial fibrillation: Status: Acute Assessment and Plan: Paroxysmal atrial fibrillation which has remained suppressed. Currently of amiodarone therapy. Continue to avoid amiodarone therapy due to findings on chest CT. Pulmonary to follow-up. Also hold oral anticoagulation given his significant anemia. Anemia workup should be pursued and consider GI as well as Hematology consultation. If there is iron deficiency anemia and suspicion for GI bleed, will need evaluation for Watchman device in the future. Risk of stroke was discussed with him. (3) First degree AV block: Status: Acute Assessment and Plan: Marked first-degree AV block with DE interval greater than 500 milliseconds. Status post pacemaker placement. Bradycardia is improved. We reprogrammed his sensed and paced AV interval to improve AV synchrony. Will follow with you. Thank you for allowing me to partake in his care Fall Risk Details Current Medications: Current Medications Acetaminophen (Acetaminophen 325 Mg Tablet) 650 mg PO Q6H PRN PRN Reason: Pain, Mild (Pain Scale 1-3) Albuterol/Ipratropium (Albuterol/Iprat 2.5/0.5mg 3 Ml Ampul.Neb) 3 ml INHALE RQ6H WHILE AWAKE [facility] Last Admin: 12/01/21 08:03 Dose: 3 ml Documented by: Allopurinol (Allopurinol 100 Mg Tablet) 200 mg PO BEDTIME [facility] Last Admin: 11/30/21 21:21 Dose: 200 mg Documented by: Amoxicillin/Clavulanate Potassium (Amoxicillin/Potassium Clav 875 Mg Tablet) 875 mg PO BID [facility] Last Admin: 12/01/21 08:36 Dose: 875 mg Documented by: Atorvastatin Calcium (Atorvastatin Calcium 20 Mg Tablet) 20 mg PO DAILY [facility] Last Admin: 12/01/21 08:36 Dose: 20 mg Documented by: Bumetanide (Bumetanide 1 Mg Tablet) 1 mg PO DAILY [facility]; Protocol Losartan Potassium (Losartan Potassium 50 Mg Tablet) 50 mg PO DAILY [facility]; Protocol Last Admin: 11/30/21 08:47 Dose: 50 mg Documented by: Methylprednisolone Sodium Succinate (Methylprednisolone Sod Succ 40 Mg/Ml Vial) 40 mg IVPUSH Q8H [facility] Stop: 12/01/21 23:59 Last Admin: 12/01/21 05:11 Dose: 40 mg Documented by: Multivitamins/Vitamin C (Multivitamin Tablet) 1 tab PO DAILY [facility] Last Admin: 12/01/21 08:36 Dose: 1 tab Documented by: Omeprazole (Omeprazole 20 Mg Capsule.) 20 mg PO DAILY@0630 [facility] Last Admin: 12/01/21 05:11 Dose: 20 mg Documented by: Ondansetron HCl (Ondansetron Hcl 4 Mg/2 Ml Vial) 4 mg IVPUSH Q8H PRN PRN Reason: Nausea and Vomiting Pharmacy Consult (Consult Rx Perform Med Rec) 1 each MISCELLANE ONCE PRN PRN Reason: Consult order Prednisone (Prednisone 20 Mg Tablet) 40 mg PO DAILY [facility] Sodium Chloride (0.9 % Sodium Chloride Flush 3 Ml Syringe) 3 ml IVFLUSH QSHIFT [facility] Last Admin: 12/01/21 08:00 Dose: 3 ml Documented by: Tiotropium [place] (Tiotropium [place] 18 Mcg Cap.W.Dev) 1 puff INHALE RDAILY [facility] Last Admin: 12/01/21 08:03 Dose: 1 puff Documented by: Vitamin D (Cholecalciferol (Vitamin D3) 25 Mcg Tablet) 25 mcg PO DAILY [facility] Last Admin: 12/01/21 08:36 Dose: 25 mcg Documented by: Time Spent With Patient Time: Total time spent is greater than 50% in coordination of care (as documented) at patient's floor/unit and/or counseling patient: Time with patient: 25 - 35 minutes Progress Note: Quality Stroke Does the patient have a stroke diagnosis?: No Procedures Date of Service Date of Service: 12/01/21
[2021-12-01] MEDS: Bumetanide 1 MG TABLET PO (12:08)
--- NOTE | 2021-12-01 12:37 | P.PNIM_ITS ---
Subjective Subjective Date of Service: 12/01/21 Interval History: seen and examined this morning intermittent coughing, feeling a little congested; does admit to having chronic cough, doesn't seem much different from baseline difficulty moving around due to limited mobility in left arm after PM placement yesterday Physical Exam Vital Signs: Vital Signs: Last Vital Signs Temp 97.6 F 12/01/21 11:46 Pulse 72 12/01/21 11:46 Resp 20 12/01/21 11:46 BP 105/47 L 12/01/21 11:46 Pulse Ox 95 12/01/21 11:46 Oxygen Flow Rate 2 11/26/21 12:10 BMI result Body Mass Index 49.0 Const: General: cooperative, comfortable, alert and awake Nutritional Appearance: obese Resp: Other: diminished breath sounds; no rales Effort & Inspection: normal respiratory effort and able to speak in complete sentences GI: Inspection: No distended and Yes obesity Palpation (GI): Soft to palpation and nontender Extrem: Other: leg edema improving Objective Data Active Medications Acetaminophen (Acetaminophen 325 Mg Tablet) 650 mg PO Q6H PRN PRN Reason: Pain, Mild (Pain Scale 1-3) Albuterol/Ipratropium (Albuterol/Iprat 2.5/0.5mg 3 Ml Ampul.Neb) 3 ml INHALE RQ6H WHILE AWAKE [facility] Last Admin: 12/01/21 08:03 Dose: 3 ml Documented by: ALYSSIA Allopurinol (Allopurinol 100 Mg Tablet) 200 mg PO BEDTIME [facility] Last Admin: 11/30/21 21:21 Dose: 200 mg Documented by: JASMIN Amoxicillin/Clavulanate Potassium (Amoxicillin/Potassium Clav 875 Mg Tablet) 875 mg PO BID [facility] Last Admin: 12/01/21 08:36 Dose: 875 mg Documented by: BOGDAN Atorvastatin Calcium (Atorvastatin Calcium 20 Mg Tablet) 20 mg PO DAILY [facility] Last Admin: 12/01/21 08:36 Dose: 20 mg Documented by: BOGDAN Bumetanide (Bumetanide 1 Mg Tablet) 1 mg PO DAILY [facility]; Protocol Last Admin: 12/01/21 12:08 Dose: 1 mg Documented by: BOGDAN Losartan Potassium (Losartan Potassium 50 Mg Tablet) 50 mg PO DAILY [facility]; Protocol Last Admin: 11/30/21 08:47 Dose: 50 mg Documented by: CLARI Methylprednisolone Sodium Succinate (Methylprednisolone Sod Succ 40 Mg/Ml Vial) 40 mg IVPUSH Q8H [facility] Stop: 12/01/21 23:59 Last Admin: 12/01/21 12:08 Dose: 40 mg Documented by: BOGDAN Multivitamins/Vitamin C (Multivitamin Tablet) 1 tab PO DAILY [facility] Last Admin: 12/01/21 08:36 Dose: 1 tab Documented by: BOGDAN Omeprazole (Omeprazole 20 Mg Capsule.Dr) 20 mg PO DAILY@0630 [facility] Last Admin: 12/01/21 05:11 Dose: 20 mg Documented by: FERNANDO Ondansetron HCl (Ondansetron Hcl 4 Mg/2 Ml Vial) 4 mg IVPUSH Q8H PRN PRN Reason: Nausea and Vomiting Pharmacy Consult (Consult Rx Perform Med Rec) 1 each MISCELLANE ONCE PRN PRN Reason: Consult order Prednisone (Prednisone 20 Mg Tablet) 40 mg PO DAILY [facility] Sodium Chloride (0.9 % Sodium Chloride Flush 3 Ml Syringe) 3 ml IVFLUSH QSHIFT [facility] Last Admin: 12/01/21 08:00 Dose: 3 ml Documented by: BOGDAN Tiotropium [place] (Tiotropium [place] 18 Mcg Cap.W.Dev) 1 puff INHALE RDAILY [facility] Last Admin: 12/01/21 08:03 Dose: 1 puff Documented by: ALYSSIA Vitamin D (Cholecalciferol (Vitamin D3) 25 Mcg Tablet) 25 mcg PO DAILY [facility] Last Admin: 12/01/21 08:36 Dose: 25 mcg Documented by: BOGDAN Labs CBC & Chem 7: 12/01/21 06:17 12/01/21 06:17 Labs: Laboratory Results - last 24 hr 12/01/21 12/01/21 12/01/21 06:17 06:17 06:17 MCV 99.3 H MCH 31.9 MCHC 32.1 RDW 15.5 Plt Count 226 MPV 11.1 Absolute Nucleated RBC 0.000 Nucleated RBC % (auto) 0.0 Anion Gap 12 Estim Creat Clear Calc 62.1 Estimated GFR 47 Random Glucose 199 H D Calcium 9.6 Iron 39 L TIBC 419 % Saturation 9 L Unsat Iron Binding 380 Ferritin 300 H Vitamin B12 1123 H Folate 14.9 Assessment and Plan (1) Chronic hyponatremia: Status: Acute (2) Acute on chronic respiratory failure with hypoxia: Status: Acute (3) Sinus bradycardia: Status: Acute (4) CHF (congestive heart failure): Status: Acute Plan This is a 76 year old M with a PMH of HFpEF, ILD with chronic resp. failure with hypoxia on 1L at home, morbid obesity, PAF - on Xarelto + Amiodarone who present s to the hospital with several days of progressive dyspnea and hypoxia, particularly with exertion. AJAY creatinine down to 1.47 secondary to diuresis with IV Lasix lasix stopped -hold losartan -follow BMP daily Acute on Chronic Respiratory Failure with hypoxia likely secondary to fluid overload from acute CHF on a background of pulmonary fibrosis/ILD and obesity hypoventilation down to 1.5 L by NC (baseline 1L), wean as tolerated Chronic Pulmonary Fibrosis/COPD Chest CT showing worsening of pulmonary findings Seen by pulmonology, started on systemic steroids and obtain sputum culture amiodorone d/c due to concern for worsening pulmonary fibrosis Acute on Chronic HFpEF negative >5L initially treated with lasix drip, but creatinine has increased, will d/c lasix start po bumex follow i/o; BMP daily cardiology following Bradycardia with marked first degree a-v block amiodorone and propranolol on hold s/p pacemaker 11/02 hold xarelto (INR falsely elevated due to AC with xarelto) Anemia no evidence of acute bleeding will start anemia workup hold xarelto for now Leukocytosis likely r/t steroids not infection Hyponatremia sodium 130, appears somewhat chronic r/t fluid overload from CHF follow BMP Chronic COPD continue his baseline inhalers HTN continue baseline meds PAF Xarelto on hold for PM BB/Amio on hold - see bradycardia above MARY not on cpap at home does not want to use CPAP Morbid Obesity BMI 49.1 contributing to worsening of his respiratory/cardiac conditions weight loss Full Code DVT pptx, Xarelto on hold for procedure, mechanical boots Attending: Dr. Germain Reason for continued hospitalization: Respiratory failure, bradycardic requiring PPM; systemic IV steroids for ILD flare Quality Stroke Does the patient have a stroke diagnosis?: No VTE Prior VTE?: No VTE Risk Level:: Medical - moderate - high VTE Device Contraindication: Treatment Not Indicated VTE Drug Contraindication: N/A - Med Ordered
--- NOTE | 2021-12-01 16:14 | HO.POSTANES ---
Post Anesthesia Evaluation Post Anesthesia Evaluation Vital Signs: Vital Signs Temp Pulse Resp BP Pulse Ox 12/01/21 15:28 98.7 F 75 18 108/59 L 95 12/01/21 14:51 71 18 12/01/21 13:31 95 12/01/21 11:46 97.6 F 72 20 105/47 L 95 12/01/21 08:08 69 20 12/01/21 08:00 96.6 F L 81 20 139/68 93 Anesthesia: Monitored Mental Status: Awake Pain Control: Satisfactory Nausea/Vomiting: None Hydration: Adequate Anesthesia-Related Issues: No Anes. Related Issues
--- NOTE | 2021-12-01 20:06 | PM.EVENT ---
Event Note Date of Service: 12/01/21 Event Note: pt s/p pacemaker pt requesting jarquin cather as his arm in sling and needs someone to help hold his urinal everytime he goes. he is also on bumex. order placed for jarquin cath
[2021-12-01] MEDS: allopurinoL 100 MG TABLET 200 MG PO (20:08)
[2021-12-02] VITALS (10 sets, daily range): BP systolic 114–147; BP diastolic 54–72; PULSE 74–90; RESP 18–20; TEMP 36.1–37.2; O2SAT 94–97
[2021-12-02] MEDS: Omeprazole 20 MG CAPSULE.DR PO (06:18)
[2021-12-02] MEDS: Albuterol/Iprat 2.5/0.5MG 3 ML AMPUL.NEB INHALE ×4 (07:32→19:51)
--- NOTE | 2021-12-02 08:00 | PM.PNGS ---
Subjective Subjective Date of Service: 12/02/21 Patient reports: no new complaints Interval history: DC PPM on Friday. Physical Exam Vital Signs: Vital Signs: Last Vital Signs Temp 97.4 F 12/02/21 04:00 Pulse 76 12/02/21 07:33 Resp 18 12/02/21 07:33 BP 114/54 L 12/02/21 04:00 Pulse Ox 94 12/02/21 04:00 Oxygen Flow Rate 1.5 12/01/21 13:31 BMI result Body Mass Index 49.0 Objective Data Active Medications Acetaminophen (Acetaminophen 325 Mg Tablet) 650 mg PO Q6H PRN PRN Reason: Pain, Mild (Pain Scale 1-3) Albuterol/Ipratropium (Albuterol/Iprat 2.5/0.5mg 3 Ml Ampul.Neb) 3 ml INHALE RQ6H WHILE AWAKE [facility] Last Admin: 12/02/21 07:32 Dose: 3 ml Documented by: KADEN Allopurinol (Allopurinol 100 Mg Tablet) 200 mg PO BEDTIME [facility] Last Admin: 12/01/21 20:08 Dose: 200 mg Documented by: FERNANDO Amoxicillin/Clavulanate Potassium (Amoxicillin/Potassium Clav 875 Mg Tablet) 875 mg PO BID [facility] Last Admin: 12/01/21 20:08 Dose: 875 mg Documented by: FERNANDO Atorvastatin Calcium (Atorvastatin Calcium 20 Mg Tablet) 20 mg PO DAILY [facility] Last Admin: 12/01/21 08:36 Dose: 20 mg Documented by: BOGDAN Bumetanide (Bumetanide 1 Mg Tablet) 1 mg PO DAILY [facility]; Protocol Last Admin: 12/01/21 12:08 Dose: 1 mg Documented by: BOGDAN Losartan Potassium (Losartan Potassium 50 Mg Tablet) 50 mg PO DAILY [facility]; Protocol Last Admin: 11/30/21 08:47 Dose: 50 mg Documented by: CLARI Multivitamins/Vitamin C (Multivitamin Tablet) 1 tab PO DAILY [facility] Last Admin: 12/01/21 08:36 Dose: 1 tab Documented by: BOGDAN Omeprazole (Omeprazole 20 Mg Capsule.) 20 mg PO DAILY@0630 [facility] Last Admin: 12/02/21 06:18 Dose: 20 mg Documented by: FERNANDO Ondansetron HCl (Ondansetron Hcl 4 Mg/2 Ml Vial) 4 mg IVPUSH Q8H PRN PRN Reason: Nausea and Vomiting Pharmacy Consult (Consult Rx Perform Med Rec) 1 each MISCELLANE ONCE PRN PRN Reason: Consult order Prednisone (Prednisone 20 Mg Tablet) 40 mg PO DAILY [facility] Sodium Chloride (0.9 % Sodium Chloride Flush 3 Ml Syringe) 3 ml IVFLUSH QSHIFT [facility] Last Admin: 12/01/21 20:08 Dose: 3 ml Documented by: FERNANDO Tiotropium [place] (Tiotropium [place] 18 Mcg Cap.W.Dev) 1 puff INHALE RDAILY [facility] Last Admin: 12/02/21 07:42 Dose: 1 puff Documented by: KADEN Vitamin D (Cholecalciferol (Vitamin D3) 25 Mcg Tablet) 25 mcg PO DAILY [facility] Last Admin: 12/01/21 08:36 Dose: 25 mcg Documented by: BOGDAN Labs CBC & Chem 7: 12/01/21 06:17 12/01/21 06:17 Labs: Laboratory Results - last 24 hr 12/01/21 12/01/21 12/01/21 06:17 06:17 06:17 MCV 99.3 H MCH 31.9 MCHC 32.1 RDW 15.5 Plt Count 226 MPV 11.1 Absolute Nucleated RBC 0.000 Nucleated RBC % (auto) 0.0 Anion Gap 12 Estim Creat Clear Calc 62.1 Estimated GFR 47 Random Glucose 199 H D Calcium 9.6 Iron 39 L TIBC 419 % Saturation 9 L Unsat Iron Binding 380 Ferritin 300 H Vitamin B12 1123 H Folate 14.9 Procedures Date of Service Date of Service: 12/02/21 Progress Note: A&P Assessment and plan (1) First degree AV block: Status: Acute Plan Leads checked remotely and working well. OK to start Xarelto from standpoint of the pacemaker tomorrow. Needs f/u in my office in 2 weeks for wound check and device interrogation. standard post pacemaker precautions: no lifting left arm above the level of the shoulder or reaching behind himselft with that arm. OK to shower, no baths or scrubbing the wound. Call the office sooner if any fevers, drainage, or increasing redness around the wound. Fall Risk Details Current Medications: Current Medications Acetaminophen (Acetaminophen 325 Mg Tablet) 650 mg PO Q6H PRN PRN Reason: Pain, Mild (Pain Scale 1-3) Albuterol/Ipratropium (Albuterol/Iprat 2.5/0.5mg 3 Ml Ampul.Neb) 3 ml INHALE RQ6H WHILE AWAKE [facility] Last Admin: 12/02/21 07:32 Dose: 3 ml Documented by: Allopurinol (Allopurinol 100 Mg Tablet) 200 mg PO BEDTIME [facility] Last Admin: 12/01/21 20:08 Dose: 200 mg Documented by: Amoxicillin/Clavulanate Potassium (Amoxicillin/Potassium Clav 875 Mg Tablet) 875 mg PO BID [facility] Last Admin: 12/01/21 20:08 Dose: 875 mg Documented by: Atorvastatin Calcium (Atorvastatin Calcium 20 Mg Tablet) 20 mg PO DAILY [facility] Last Admin: 12/01/21 08:36 Dose: 20 mg Documented by: Bumetanide (Bumetanide 1 Mg Tablet) 1 mg PO DAILY [facility]; Protocol Last Admin: 12/01/21 12:08 Dose: 1 mg Documented by: Losartan Potassium (Losartan Potassium 50 Mg Tablet) 50 mg PO DAILY [facility]; Protocol Last Admin: 11/30/21 08:47 Dose: 50 mg Documented by: Multivitamins/Vitamin C (Multivitamin Tablet) 1 tab PO DAILY [facility] Last Admin: 12/01/21 08:36 Dose: 1 tab Documented by: Omeprazole (Omeprazole 20 Mg Capsule.Dr) 20 mg PO DAILY@0630 [facility] Last Admin: 12/02/21 06:18 Dose: 20 mg Documented by: Ondansetron HCl (Ondansetron Hcl 4 Mg/2 Ml Vial) 4 mg IVPUSH Q8H PRN PRN Reason: Nausea and Vomiting Pharmacy Consult (Consult Rx Perform Med Rec) 1 each MISCELLANE ONCE PRN PRN Reason: Consult order Prednisone (Prednisone 20 Mg Tablet) 40 mg PO DAILY [facility] Sodium Chloride (0.9 % Sodium Chloride Flush 3 Ml Syringe) 3 ml IVFLUSH QSHIFT [facility] Last Admin: 12/01/21 20:08 Dose: 3 ml Documented by: Tiotropium [place] (Tiotropium [place] 18 Mcg Cap.W.Dev) 1 puff INHALE RDAILY [facility] Last Admin: 12/02/21 07:42 Dose: 1 puff Documented by: Vitamin D (Cholecalciferol (Vitamin D3) 25 Mcg Tablet) 25 mcg PO DAILY [facility] Last Admin: 12/01/21 08:36 Dose: 25 mcg Documented by: Time Spent With Patient Time: Total time spent is greater than 50% in coordination of care (as documented) at patient's floor/unit and/or counseling patient: Time with patient: less than 15 minutes Quality Stroke Does the patient have a stroke diagnosis?: No VTE Prior VTE?: No VTE Risk Level:: Medical - moderate - high VTE Device Contraindication: Treatment Not Indicated VTE Drug Contraindication: N/A - Med Ordered
[2021-12-02 08:07] LABS: Anion Gap 13 (12-20); Blood Urea Nitrogen 31 mg/dL (9-16); Calcium 9.5 mg/dL (8.4-10.2); Carbon Dioxide 41 mmol/L (22-29); Chloride 82 mmol/L (96-108); Creatinine Clr Calc Pharmacy 66.1; Estimated Glomerular Filt Rate 50; Glucose Random 182 mg/dL (60-115); Potassium 5.1 mmol/L (3.3-5.1); Sodium 131 mmol/L (135-145)
[2021-12-02] MEDS: predniSONE 20 MG TABLET 40 MG PO (09:39)
[2021-12-02] MEDS: Bumetanide 1 MG TABLET PO (09:39)
[2021-12-02] MEDS: Atorvastatin Calcium 20 MG TABLET PO (09:39)
[2021-12-02] MEDS: Amoxicillin/Potassium Clav 875 MG TABLET PO ×2 (09:39→22:40)
[2021-12-02] MEDS: Multivitamin TABLET 1 TAB PO (09:39)
[2021-12-02] MEDS: 0.9 % Sodium Chloride Flush 3 ML SYRINGE IVFLUSH ×3 (09:39→22:41)
[2021-12-02] MEDS: Cholecalciferol (Vitamin D3) 25 MCG TABLET PO (09:40)
--- NOTE | 2021-12-02 10:52 | P.PNCA_ITS ---
Subjective Subjective Date of Service: 12/02/21 Principal diagnosis: CHF, bradycardia/pulmonary fibrosis Interval history: Patient continues to have cough. Says his shortnessbreath is stable. Not moving much. Remains in sinus rhythm with adequate pacing. Heart rate is increased to 80-90 beats per minute. Blood pressure is stable. Maintain urine output. Kidney functions have improved. Review of Systems Constitutional: Reports no additional constitutional complaints Cardiovascular: Reports dyspnea and Reports orthopnea Respiratory: Reports cough and Reports dyspnea Gastrointestinal: Reports no additional gastrointestinal complaints Genitourinary: Reports no additional male genitourinary complaints Musculoskeletal: Reports no additional musculoskeletal complaints Skin/Breast: Reports system reviewed and no additional complaints, except as docu Physical Exam Vital Signs: Last Vital Signs Temp 97.1 F 12/02/21 08:00 Pulse 83 12/02/21 08:00 Resp 20 12/02/21 08:00 BP 133/60 12/02/21 08:00 Pulse Ox 95 12/02/21 08:00 Oxygen Flow Rate 1.5 12/01/21 13:31 BMI result Body Mass Index 49.0 Const General: cooperative, comfortable, alert and awake Nutritional Appearance: obese Neck Neck: Yes trachea midline and Yes supple Resp Effort & Inspection: normal respiratory effort Auscultation: diminished lung sounds Cardio Palpation: normal PMI Rate: regular rate Rhythm: regular rhythm Heart sounds: S1 normal heart sound present, S2 normal heart sound present, no click, no gallops and no murmurs Extrem General: No clubbing, No cyanosis and Yes edema Objective Labs and Meds Result diagrams: 12/01/21 06:17 12/02/21 07:42 Lab results: Laboratory Results - last 24 hr 12/01/21 12/01/21 12/01/21 06:17 06:17 06:17 WBC 12.5 H RBC 3.07 L Hgb 9.8 L Hct 30.5 L MCV 99.3 H MCH 31.9 MCHC 32.1 RDW 15.5 Plt Count 226 MPV 11.1 Absolute Nucleated RBC 0.000 Nucleated RBC % (auto) 0.0 Sodium Potassium Chloride Carbon Dioxide Anion Gap BUN Creatinine Estim Creat Clear Calc Estimated GFR Random Glucose Calcium Iron 39 L TIBC 419 % Saturation 9 L Unsat Iron Binding 380 Ferritin 300 H Vitamin B12 1123 H Folate 14.9 12/02/21 07:42 WBC RBC Hgb Hct MCV MCH MCHC RDW Plt Count MPV Absolute Nucleated RBC Nucleated RBC % (auto) Sodium 131 L Potassium 5.1 Chloride 82 L Carbon Dioxide 41 H* Anion Gap 13 BUN 31 H Creatinine 1.38 Estim Creat Clear Calc 66.1 Estimated GFR 50 Random Glucose 182 H Calcium 9.5 Iron TIBC % Saturation Unsat Iron Binding Ferritin Vitamin B12 Folate Imaging Radiologist's impression: Impressions Chest X-Ray 12/01/21 10:20 IMPRESSION: Slightly improved bilateral airspace opacities. No change in pacemaker electrodes from previous study. Progress Note: A&P Assessment and plan (1) Acute on chronic respiratory failure with hypoxia: Status: Acute Assessment and Plan: Acute on chronic respiratory failure multifactorial with obesity hypoventilation, underlying pulmonary parenchymal disease and heart failure syndrome. Clinically heart failure [place] looking euvolemic. Diuresing well with p.o. Bumex. Continue the same. Continue oxygen supplementation therapy. Continue incentive spirometry. Continue treatment as per Pulmonary. Given his poor functional status, overall prognosis is guarded. Continue rhythm control as long as possible. Will avoid amiodarone therapy given his findings of pulm onary fibrosis and interstitial lung disease. Sodium is improving. Creatinine is improved as well. Out of bed to chair and increase activity suggested. (2) Paroxysmal atrial fibrillation: Status: Acute Assessment and Plan: Prior history of atrial fibrillation, currently in sinus rhythm. Continue rhythm control approach as long as possible. Currently of amiodarone therapy and will eventually will have recurrent atrial fibrillation. Will evaluate his clinical status at that point in time. Continue to hold oral anticoagulation therapy till with complete Hematology evaluation. Continue monitor renal function closely. (3) First degree AV block: Status: Acute Assessment and Plan: Significant first-degree AV block status post pacemaker placement. Doing well. Start Inderal therapy to improve his heart rate and improved cardiac insufficiency. Will follow up in the clinic in 4 weeks time. Will sign of the case Fall Risk Details Current Medications: Current Medications Acetaminophen (Acetaminophen 325 Mg Tablet) 650 mg PO Q6H PRN PRN Reason: Pain, Mild (Pain Scale 1-3) Albuterol/Ipratropium (Albuterol/Iprat 2.5/0.5mg 3 Ml Ampul.Neb) 3 ml INHALE R Q6H WHILE AWAKE [facility] Last Admin: 12/02/21 07:32 Dose: 3 ml Documented by: Allopurinol (Allopurinol 100 Mg Tablet) 200 mg PO BEDTIME [facility] Last Admin: 12/01/21 20:08 Dose: 200 mg Documented by: Amoxicillin/Clavulanate Potassium (Amoxicillin/Potassium Clav 875 Mg Tablet) 8 75 mg PO BID [facility] Last Admin: 12/02/21 09:39 Dose: 875 mg Documented by: Atorvastatin Calcium (Atorvastatin Calcium 20 Mg Tablet) 20 mg PO DAILY [facility] Last Admin: 12/02/21 09:39 Dose: 20 mg Documented by: Bumetanide (Bumetanide 1 Mg Tablet) 1 mg PO DAILY [facility]; Protocol Last Admin: 12/02/21 09:39 Dose: 1 mg Documented by: Losartan Potassium (Losartan Potassium 50 Mg Tablet) 50 mg PO DAILY [facility]; Protocol Last Admin: 11/30/21 08:47 Dose: 50 mg Documented by: Multivitamins/Vitamin C (Multivitamin Tablet) 1 tab PO DAILY [facility] Last Admin: 12/02/21 09:39 Dose: 1 tab Documented by: Omeprazole (Omeprazole 20 Mg Capsule.) 20 mg PO DAILY@0630 [facility] Last Admin: 12/02/21 06:18 Dose: 20 mg Documented by: Ondansetron HCl (Ondansetron Hcl 4 Mg/2 Ml Vial) 4 mg IVPUSH Q8H PRN PRN Reason: Nausea and Vomiting Pharmacy Consult (Consult Rx Perform Med Rec) 1 each MISCELLANE ONCE PRN PRN Reason: Consult order Prednisone (Prednisone 20 Mg Tablet) 40 mg PO DAILY [facility] Last Admin: 12/02/21 09:39 Dose: 40 mg Documented by: Sodium Chloride (0.9 % Sodium Chloride Flush 3 Ml Syringe) 3 ml IVFLUSH QSHIFT [facility] Last Admin: 12/02/21 09:39 Dose: 3 ml Documented by: Tiotropium [place] (Tiotropium [place] 18 Mcg Cap.W.Dev) 1 puff INHALE RDAILY [facility] Last Admin: 12/02/21 07:42 Dose: 1 puff Documented by: Vitamin D (Cholecalciferol (Vitamin D3) 25 Mcg Tablet) 25 mcg PO DAILY [facility] Last Admin: 12/02/21 09:40 Dose: 25 mcg Documented by: Time Spent With Patient Time: Total time spent is greater than 50% in coordination of care (as documented) at patient's floor/unit and/or counseling patient: Time with patient: 25 - 35 minutes Progress Note: Quality Stroke Does the patient have a stroke diagnosis?: No Procedures Date of Service Date of Service: 12/02/21
--- NOTE | 2021-12-02 11:12 | HO.PM.IMPN ---
Subjective Subjective Date of Service: 12/02/21 <ERIK Peralta - Last Filed: 12/02/21 12:56> 12/02/21 <Ruben Rivero DO - Last Filed: 12/02/21 13:00> Interval History: seen and examined this morning still coughing, but says its his baseline no sob jarquin placed overnight due to frequent need to urinate and decreased mobility mentioned some tingling in fingers yesterday, seems better today <ERIK Peralta - Last Filed: 12/02/21 12:56> Review of Systems Review of Systems: Yes all other systems are reviewed and are negative <ERIK Peralta - Last Filed: 12/02/21 12:56> Constitutional Constitutional: Denies chills and Denies fever(s) <ERIK Peralta - Last Filed: 12/02/21 12:56> Cardiovascular Cardiovascular: Denies chest pain, Denies palpitations and Denies dyspnea <ERIK Peralta - Last Filed: 12/02/21 12:56> Respiratory Respiratory: Reports cough and Denies dyspnea <ERIK Peralta - Last Filed: 12/02/21 12:56> Endocrine Endocrine: Denies palpitations <ERIK Peralta - Last Filed: 12/02/21 12:56> Physical Exam Vital Signs: Vital Signs: Last Vital Signs Temp 97.1 F 12/02/21 08:00 Pulse 83 12/02/21 08:00 Resp 20 12/02/21 08:00 BP 133/60 12/02/21 08:00 Pulse Ox 95 12/02/21 08:00 Oxygen Flow Rate 1.5 12/01/21 13:31 BMI result Body Mass Index 49.0 <ERIK Peralta - Last Filed: 12/02/21 12:56> Const: General: cooperative, comfortable, alert and awake <ERIK Peralta - Last Filed: 12/02/21 12:56> Nutritional Appearance: obese <ERIK Peralta - Last Filed: 12/02/21 12:56> Resp: Other: diminished breath sounds; no rales <ERIK Peralta - Last Filed: 12/02/21 12:56> Effort & Inspection: normal respiratory effort and able to speak in complete sentences <ERIK Peralta - Last Filed: 12/02/21 12:56> GI: Other: jarquin draining yellow urine <ERIK Peralta Last Filed: 12/02/21 12:56> Inspection: No distended and Yes obesity <ERIK Peralta - Last Filed: 12/02/21 12:56> Palpation (GI): Soft to palpation and nontender <ERIK Peralta - Last Filed: 12/02/21 12:56> Extrem: Other: leg edema improving <ERIK Peralta - Last Filed: 12/02/21 12:56> Objective Data Active Medications Acetaminophen (Acetaminophen 325 Mg Tablet) 650 mg PO Q6H PRN PRN Reason: Pain, Mild (Pain Scale 1-3) Albuterol/Ipratropium (Albuterol/Iprat 2.5/0.5mg 3 Ml Ampul.Neb) 3 ml INHALE RQ6H WHILE AWAKE [facility] Last Admin: 12/02/21 07:32 Dose: 3 ml Documented by: KADEN Allopurinol (Allopurinol 100 Mg Tablet) 200 mg PO BEDTIME [facility] Last Admin: 12/01/21 20:08 Dose: 200 mg Documented by: FERNANDO Amoxicillin/Clavulanate Potassium (Amoxicillin/Potassium Clav 875 Mg Tablet) 875 mg PO BID [facility] Last Admin: 12/02/21 09:39 Dose: 875 mg Documented by: JINNY Atorvastatin Calcium (Atorvastatin Calcium 20 Mg Tablet) 20 mg PO DAILY [facility] Last Admin: 12/02/21 09:39 Dose: 20 mg Documented by: JINNY Bumetanide (Bumetanide 1 Mg Tablet) 1 mg PO DAILY [facility]; Protocol Last Admin: 12/02/21 09:39 Dose: 1 mg Documented by: JINNY Losartan Potassium (Losartan Potassium 50 Mg Tablet) 50 mg PO DAILY [facility]; Protocol Last Admin: 11/30/21 08:47 Dose: 50 mg Documented by: CLARI Multivitamins/Vitamin C (Multivitamin Tablet) 1 tab PO DAILY [facility] Last Admin: 12/02/21 09:39 Dose: 1 tab Documented by: JINNY Omeprazole (Omeprazole 20 Mg Capsule.) 20 mg PO DAILY@0630 [facility] Last Admin: 12/02/21 06:18 Dose: 20 mg Documented by: FERNANDO Ondansetron HCl (Ondansetron Hcl 4 Mg/2 Ml Vial) 4 mg IVPUSH Q8H PRN PRN Reason: Nausea and Vomiting Pharmacy Consult (Consult Rx Perform Med Rec) 1 each MISCELLANE ONCE PRN PRN Reason: Consult order Prednisone (Prednisone 20 Mg Tablet) 40 mg PO DAILY [facility] Last Admin: 12/02/21 09:39 Dose: 40 mg Documented by: JINNY Sodium Chloride (0.9 % Sodium Chloride Flush 3 Ml Syringe) 3 ml IVFLUSH QSHIFT [facility] Last Admin: 12/02/21 09:39 Dose: 3 ml Documented by: JINNY Tiotropium [place] (Tiotropium [place] 18 Mcg Cap.W.Dev) 1 puff INHALE RDAILY [facility] Last Admin: 12/02/21 07:42 Dose: 1 puff Documented by: KADEN Vitamin D (Cholecalciferol (Vitamin D3) 25 Mcg Tablet) 25 mcg PO DAILY [facility] Last Admin: 12/02/21 09:40 Dose: 25 mcg Documented by: JINNY <ERIK Peralta - Last Filed: 12/02/21 12:56> Labs CBC & Chem 7: : 12/01/21 06:17 12/02/21 07:42 <ERIK Peralta - Last Filed: 12/02/21 12:56> Labs: Laboratory Results - last 24 hr 12/01/21 12/01/21 12/01/21 06:17 06:17 06:17 MCV 99.3 H MCH 31.9 MCHC 32.1 RDW 15.5 Plt Count 226 MPV 11.1 Absolute Nucleated RBC 0.000 Nucleated RBC % (auto) 0.0 Anion Gap Estim Creat Clear Calc Estimated GFR Random Glucose Calcium Iron 39 L TIBC 419 % Saturation 9 L Unsat Iron Binding 380 Ferritin 300 H Vitamin B12 1123 H Folate 14.9 12/02/21 07:42 MCV MCH MCHC RDW Plt Count MPV Absolute Nucleated RBC Nucleated RBC % (auto) Anion Gap 13 Estim Creat Clear Calc 66.1 Estimated GFR 50 Random Glucose 182 H Calcium 9.5 Iron TIBC % Saturation Unsat Iron Binding Ferritin Vitamin B12 Folate <ERIK Peralta - Last Filed: 12/02/21 12:56> Assessment and Plan (1) Sinus bradycardia: Status: Acute <ERIK Peralta - Last Filed: 12/02/21 12:56> (2) Acute on chronic respiratory failure with hypoxia: Status: Acute <ERIK Peralta - Last Filed: 12/02/21 12:56> Plan This is a 76 year old M with a PMH of HFpEF, ILD with chronic resp. failure with hypoxia on 1L at home, morbid obesity, PAF - on Xarelto + Amiodarone who presents to the hospital with several days of progressive dyspnea and hypoxia, particularly with exertion. AJAY creatinine trending down, close to baseine secondary to diuresis with IV Lasix, lasix stopped -hold losartan -follow BMP Acute on Chronic Respiratory Failure with hypoxia likely secondary to fluid overload from acute CHF on a background of pulmonary fibrosis/ILD and obesity hypoventilation continue supplemental oxygen (baseline 1L), wean as tolerated Chronic Pulmonary Fibrosis/COPD Chest CT showing worsening of pulmonary findings Seen by pulmonology, started on systemic steroids and requested to obtain sputum culture amiodorone d/c due to concern for worsening pulmonary fibrosis Acute on Chronic HFpEF negative 6.4L. appears euvolemic at this time initially treated with lasix drip, but creatinine increased, changed to PO bumex follow i/o; BMP daily cardiology following Bradycardia with marked first degree a-v block s/p dual chamber pacemaker 11/02 [employer] MRI serial? number [id number]. The atrial lead was a [employer] serial number [id number].?The ventricular lead was a [employer] serial number [id number] device functioning well and fu CXR showing satisfactory position of PM Needs follow up with Dr. Johnson in 2 weeks for wound check and device interrogation. Standar pacemaker precautions:? no lifting left arm above the level of the shoulder or reaching behind himself with that arm.? OK to shower, no baths or scrubbing the wound.? Call the office sooner if any fevers, drainage, or increasing redness around the wound. PAF amio d/c for pulmonary fibrosis propranolol initially on hold for bradycardia, will resume low dose now that PM in place, up titrate prn xarelto on hold initially for PM placement, cardiology requests anemia w/u prior to resuming Anemia b12, folate wnl c/w iron deficency, will start po replacement stool occult pending, no overt bleeding noted (aka no acute blood loss) hold xarelto for now Leukocytosis likely r/t steroids not infection Hyponatremia improving, 131 today follow BMP Chronic COPD continue his baseline inhalers HTN continue baseline meds MARY not on cpap at home does not want to use CPAP Morbid Obesity BMI 49.1 contributing to worsening of his respiratory/cardiac conditions weight loss Full Code DVT pptx, Xarelto on hold for anemia workup, mechanical boots Attending: Dr. Rivero Reason for continued hospitalization: Respiratory failure, systemic IV steroids for ILD flare and placement Dispo: pt rec STR <ERIK Peralta - Last Filed: 12/02/21 12:56> This is a 76 year old M with a PMH of HFpEF, ILD with chronic resp. failure with hypoxia on 1L at home, morbid obesity, PAF - on Xarelto + Amiodarone who presents to the hospital with several days of progressive dyspnea and hypoxia, particularly with exertion. AJAY creatinine trending down, close to baseine secondary to diuresis with IV Lasix, lasix stopped -hold losartan -follow BMP Acute on Chronic Respiratory Failure with hypoxia likely secondary to fluid overload from acute CHF on a background of pulmonary fibrosis/ILD and obesity hypoventilation continue supplemental oxygen (baseline 1L), wean as tolerated Chronic Pulmonary Fibrosis/COPD Chest CT showing worsening of pulmonary findings Seen by pulmonology, started on systemic steroids and requested to obtain sputum culture amiodorone d/c due to concern for worsening pulmonary fibrosis Acute on Chronic HFpEF negative 6.4L. appears euvolemic at this time initially treated with lasix drip, but creatinine increased, changed to PO bumex follow i/o; BMP daily cardiology following Bradycardia with marked first degree a-v block s/p dual chamber pacemaker 11/02 [employer] MRI serial? number [id number]. The atrial lead was a [employer] serial number [id number].?The ventricular lead was a [employer] serial number [id number] device functioning well and fu CXR showing satisfactory position of PM Needs follow up with Dr. Johnson in 2 weeks for wound check and device interrogation. Standar pacemaker precautions:? no lifting left arm above the level of the shoulder or reaching behind himself with that arm.? OK to shower, no baths or scrubbing the wound.? Call the office sooner if any fevers, drainage, or increasing redness around the wound. PAF amio d/c for pulmonary fibrosis propranolol initially on hold for bradycardia, will resume low dose now that PM in place, up titrate prn xarelto on hold initially for PM placement, cardiology requests anemia w/u prior to resuming Anemia b12, folate wnl c/w iron deficency, will start po replacement stool occult pending, no overt bleeding noted (aka no acute blood loss) hold xarelto for now Leukocytosis likely r/t steroids not infection Hyponatremia improving, 131 today follow BMP Chronic COPD continue his baseline inhalers HTN continue baseline meds MARY not on cpap at home does not want to use CPAP Morbid Obesity BMI 49.1 contributing to worsening of his respiratory/cardiac conditions weight loss Full Code DVT pptx, Xarelto on hold for anemia workup, mechanical boots Attending: Dr. Rivero Reason for continued hospitalization: Respiratory failure, systemic IV steroids for ILD flare and placement Dispo: pt rec STR Pt seen/examined. Agree with H+P/physical exam and assessment /plan as outlined by Ms. Monterroso <Ruben Rivero, DO - Last Filed: 12/02/21 13:00> Quality Stroke Does the patient have a stroke diagnosis?: No <ERIK Peralta - Last Filed: 12/02/21 12:56> VTE Prior VTE?: No <ERIK Peralta - Last Filed: 12/02/21 12:56> VTE Risk Level:: Medical - moderate - high <ERIK Peralta Last Filed: 12/02/21 12:56> VTE Device Contraindication: Treatment Not Indicated <ERIK Peralta - Last Filed: 12/02/21 12:56> VTE Drug Contraindication: N/A - Med Ordered <ERIK Peralta Last Filed: 12/02/21 12:56>
[2021-12-02] MEDS: Propranolol HCL 20 MG TABLET PO ×2 (12:10→22:40)
[2021-12-02] MEDS: allopurinoL 100 MG TABLET 200 MG PO (22:40)
[2021-12-03 03:23] VITALS: BP 159/92; PULSE 75; RESP 20; TEMP 36.6; O2SAT 95
[2021-12-03 04:00] VITALS: BP 126/59; PULSE 71; RESP 20; TEMP 36.3; O2SAT 96
[2021-12-03] MEDS: Omeprazole 20 MG CAPSULE.DR PO (05:40)
[2021-12-03 06:34] LABS: Anion Gap 10 (12-20); Blood Urea Nitrogen 32 mg/dL (9-16); Calcium 9.5 mg/dL (8.4-10.2); Chloride 84 mmol/L (96-108); Creatinine Clr Calc Pharmacy 72.4; Estimated Glomerular Filt Rate 56; Glucose Random 156 mg/dL (60-115); Potassium 5.5 mmol/L (3.3-5.1); Sodium 131 mmol/L (135-145)
[2021-12-03 06:37] LABS: Carbon Dioxide 43 mmol/L (22-29)
[2021-12-03] MEDS: Albuterol/Iprat 2.5/0.5MG 3 ML AMPUL.NEB INHALE (07:26)
[2021-12-03 07:28] VITALS: PULSE 76; RESP 18; O2SAT 95
[2021-12-03 08:00] VITALS: BP 114/55; PULSE 73; RESP 20; TEMP 35.9; O2SAT 96
[2021-12-03] MEDS: Cholecalciferol (Vitamin D3) 25 MCG TABLET PO (08:17)
[2021-12-03] MEDS: Amoxicillin/Potassium Clav 875 MG TABLET PO (08:17)
[2021-12-03] MEDS: Propranolol HCL 20 MG TABLET PO (08:17)
[2021-12-03] MEDS: predniSONE 20 MG TABLET 40 MG PO (08:17)
[2021-12-03] MEDS: 0.9 % Sodium Chloride Flush 3 ML SYRINGE IVFLUSH (08:18)
[2021-12-03] MEDS: Multivitamin TABLET 1 TAB PO (08:18)
[2021-12-03] MEDS: Ferrous Sulfate 324 MG TABLET.DR PO (08:18)
[2021-12-03] MEDS: Atorvastatin Calcium 20 MG TABLET PO (08:18)
[2021-12-03] MEDS: Bumetanide 1 MG TABLET PO (08:18)
[2021-12-03 10:23] LABS: Immature Retic Fraction 16.8 % (2.3-13.4); Retic HGB Equivalent 30.2 pg (30.0-35.0); Reticulocyte Percent 2.8 % (0.5-1.8); Reticulocytes Absolute 0.087 X10*6/uL (0.026-0.095)
[2021-12-03 10:29] LABS: Lactate Dehydrogenase 304 U/L (118-273)
[2021-12-03 11:41] VITALS: BP 118/59; PULSE 75; RESP 20; TEMP 36.3; O2SAT 95
--- NOTE | 2021-12-03 12:04 | MHC.CM.PN ---
pt dcd with [facility] for pt PT IS AWARE THAT STR IS THE RECommendation for dc pt staes he has 2 sons that live nearby that will help his when needed he has a lift chir and bars in bathroom amb booked for 2:30
--- NOTE | 2021-12-03 12:43 | W.MHC.F2F ---
Service Date Service Date: 12/03/21 Encounter Date of encounter: 12/03/21 Reasons for Services Signs and symptoms assessed: Treated for acute on chronic respiratory failure with hypoxia, bradycardia with significant first-degree AV block, status post pacemaker placement, chronic hyponatremia, underlying obstructive sleep apnea, morbid obesity needs help with transfers out of bed to chair has left arm sling with restricted activity due to pacemaker will need VNA and physical therapy Reason for shelter: medication management and medication treatment Reason for physical therapy: home safety and mobility and gait/transfer training Homebound: Leaving the home is medically contraindicated at this time without the asist of a device and/or another person due th the listed conditions above and below. Reason homebound: weakness related to hospital stay Certification: Based on the above findings, I certify that this patient is confined to the home and needs intermittent shelter care, physical therapy and/or speech therapy, or continues to need occupational therapy. The patient is under my care, and I have initiated the establishment of the plan of care. The patient will be followed by a physician who will periodically review the plan of care.
[2021-12-03 13:25] LABS: Transferrin 306 mg/dL (188-341)
[2021-12-03 13:45] VITALS: O2SAT 95
[2021-12-03] MEDS: acetaZOLAMIDE 250 MG TABLET 500 MG PO (13:50)
--- NOTE | 2021-12-03 14:21 | P.DS_ITS ---
DS: Providers Provider Date of Service: 12/03/21 Date of admission: 11/26/21 14:19 Primary care physician: Jenna Agee MD Consults: 11/26/21 14:24 Consult to Cardiology Routine Consulting Provider: Jean Kennedy Reason for consultation: acute chf, bradycardia 11/27/21 12:47 Consult to Thoracic Surgery Routine Consulting Provider: Jeff Johnson Reason for consultation: Pacemaker placement Has provider been notified: No 11/30/21 10:48 Consult to Pulmonology Routine Consulting Provider: Marsha Rosales Reason for consultation: respiratory failure, abnormal chest CT Has provider been notified: No DS: Diagnosis Discharge Diagnosis (1) Sinus bradycardia: Status: Resolved (2) Acute on chronic respiratory failure with hypoxia: Status: Resolved DS: Summary Hospital Course Hospital Course: Chief Complaint: hypoxia This is a 76 year old male with a PMH of HFpEF, ILD with chronic resp. failure with hypoxia on 1L at home, morbid obesity, PAF - on Xarelto + Amiodarone, who presents to the hospital with complaints of hypoxia and progressive shortness of breath with exertion of several days duration. (Of note, the patient was in the [facility] ED x 3 last week, due to a nose bleed and currently has a rhino rocket in his R nare). The patient reports that he was previously able to ambulate in his home without much issues, but now endorses feeling short of breath after a few steps. Furthermore, he reports checking his pulse ox at home and reports that it was in the 70s with exertion. He reports a chronic cough, unchanged. He denies any fevers or chills. He denies any palp or chest pain. He is unsure if he has gained weight, but does report orthopnea, LE edema. He reports compliance with his diuretic dosing but unsure if he follows a low salt diet. In the ED, the patient was noted to have an elevated bnp of 300 (normally in the 100s). His chest imaging revealed a new R pleural effusion and bilateral central airspace disease. His oxygen saturation, which was 78% when the paramedics found him, improved to the 90s on 100% NRM and he is now tolerating 3-4L by NC. He has been given IV lasix but remains symptomatic and hence will be admitted for further treatment. Hospital course 76 year old M with a PMH of HFpEF, ILD with chronic resp. failure with hypoxia on 1L at home, morbid obesity, PAF - on Xarelto + Amiodarone who presents to the hospital with several days of progressive dyspnea and hypoxia, particularly with exertion, patient diagnosed to have following medical issues. Acute on Chronic Respiratory Failure with hypoxia likely secondary to fluid overload from acute CHF on a background of pulmonary fibrosis/ILD and obesity hypoventilation, patient was followed closely by pulmonology and Cardiology, CT chest showed worsening of pulmonary findings patient treated with systemic steroids, amiodarone has been discontinued due to concern for worsening pulmonary fibrosis, patient has been placed on by mouth prednisone with i nstruction to take 40 mg daily for 7 days and taper by 10 mg Q weekly he has been recommended to follow-up with pulmonology in 2 weeks and continued on 2 L of oxygen, in regard to heart failure patient was treated with intravenous Lasix drip subsequently noted to have rise in creatinine therefore diuretics changed to by mouth Bumex which patient is tolerating well renal function, returned to baseline, patient noted to have metabolic alkalosis ABG showed stable PH likely compensatory from chronic respiratory acidosis, since patient seems to be at baseline he is being discharged home with recommendation for close outpatient cardiology and Pulmonary follow-up AJAY likely due to diuresis renal function returned to baseline Bradycardia with marked first degree a-v block therefore underwent pacemaker placement on November 30, [employer] MRI serial? number [id number], atrial lead was a [employer] serial number [id number].?The ventricular lead was a [employer] serial number [id number],device functioning well and fu CXR showing satisfactory position of PM,Needs follow up with Dr. Johnson in 2 weeks for wound check and device interrogation recommend to take standar pacemaker precautions:? no lifting left arm above the level of the shoulder or reaching behind himself with that arm.? OK to shower, no baths or scrubbing the wound.? Call the office sooner if any fevers, drainage, or increasing redness around the wound. PAF recommend to continue Xarelto and low-dose propranolol, amiodarone discontinued due to pulmonary fibrosis, recommend to follow CBC in 1 week time due to anemia and continued use of Xarelto Acute on chronic Anemia, noted to have normal B12 folate and iron studies likely has anemia of chronic disease due to underlying chronic kidney disease versus myelodysplastic syndrome, recommend outpatient follow-up with Hematology Dr. Hernandez in 2-4 weeks Leukocytosis likely r/t steroids not infection Hyponatremia seems chronic and stable around 130 Chronic COPD recommend to continue home inhalers and 2 L of oxygen HTN continue baseline meds, losartan discontinued due to borderline low blood pressures and hyperkalemia recommend outpatient follow-up with Cardiology MARY not on cpap at home Morbid Obesity BMI 49.1, contributing to worsening of his respiratory/cardiac conditions, weight loss Time Spent with Patient Time attestation: Total time spent providing and/or coordinating discharge services: Discharge coordination time: Greater than 30 minutes Quality: Stroke Does the patient have a stroke diagnosis?: No Physical Exam Vital Signs: Vital Signs: Last Vital Signs Temp 97.4 F 12/03/21 11:41 Pulse 75 12/03/21 11:41 Resp 20 12/03/21 11:41 BP 118/59 L 12/03/21 11:41 Pulse Ox 95 12/03/21 13:45 Oxygen Flow Rate 2 12/03/21 13:45 BMI result Body Mass Index 49.0 Const: Other: General awake alert, no acute distress. Neck no JVD. CVS regular rate rhythm, left anterior chest wall pacemaker in place incision well healed Respiratory lungs clear to auscultation, no respiratory distress, no wheeze, no rhonchi. Gastrointestinal abdomen soft, nontender, bowel sounds audible, no guarding , no rigidity. Extremities no edema. Left arm in sling Neuro nonfocal Skin no rash Psych appropriate affect DS: Data Data Completed and Pending Labs on day of discharge: Laboratory Results - last 24 hr 12/01/21 12/03/21 12/03/21 06:17 05:47 05:57 Absolute Retic 0.087 Percent Retic 2.8 H Immature Retic Fraction 16.8 H Retic Hgb Equivalent 30.2 Sodium 131 L Potassium 5.5 H Chloride 84 L Carbon Dioxide 43 H* Anion Gap 10 L BUN 32 H Creatinine 1.26 Estim Creat Clear Calc 72.4 Estimated GFR 56 Random Glucose 156 H Calcium 9.5 Transferrin 306 Lactate Dehydrogenase 304 H Discharge Plan Discharge Patient Disposition: Home Health Service Discharge Diagnosis: Acute on chronic respiratory failure with hypoxia Acute on chronic heart failure with preserved EF Bradycardia with marked first-degree AV block status post pacemaker Acute on chronic anemia Leukocytosis Chronic hyponatremia Referrals: [facility] [Other] - 1 Week Jenna Agee MD [Primary Care Provider] - 1 Week Discharge Medications: New bumetanide 1 mg Tablet 1 mg PO DAILY Qty: 30 0RF Protocol: Hold for SBP< HOLD for SBP < : 90 propranolol 20 mg Tablet 20 mg PO BID Qty: 60 0RF Protocol: Hold for SBP/HR < HOLD for SBP < : 90 HOLD for HR < : 60 prednisone 10 mg tablet 10 mg PO DAILY Qty: 70 0RF Rx Instructions: Take prednisone 10 mg 4 tablets x7 days, then take prednisone 10 mg 3 tablets x7 days, then 2 tablets x7 days and then 1 tablet x7 days (DME) bedside commode Kit See Rx Instructions .Route Qty: 1 0RF Rx Instructions: As directed (DME) Ultra-Light Rollator Misc See Rx Instructions .Route Qty: 1 0RF Rx Instructions: As directed Continued Xarelto 15 mg tablet 15 mg PO DAILY@1700 Qty: 90 3RF Rx Instructions: must administer with evening meal Spiriva Respimat 2.5 mcg/actuation mist 2 puff PO DAILY Qty: 4 3RF atorvastatin 20 mg tablet 20 mg PO DAILY 0RF omega 6-mjm-ciw-fish oil [Fish Oil] 1,200 (144-216) mg Capsule 1 cap PO DAILY 0RF zmqtfvofjn-ounvyknackewm-gwdf 50-325-40 mg tablet 1 tab PO Q6H PRN (Reason: Migraine Headache) 0RF multivitamin Tablet 1 tab PO DAILY 0RF cholecalciferol (vitamin D3) 25 mcg (1,000 unit) capsule 25 mcg PO DAILY 0RF allopurinol 100 mg tablet 200 mg PO BEDTIME 0RF Discontinued amiodarone 200 mg tablet 100 mg PO DAILY Qty: 45 3RF propranolol 60 mg tablet 1 tab PO BID 0RF furosemide 20 mg tablet 20 mg PO DAILY@1700 0RF amoxicillin-pot clavulanate 875-125 mg tablet 1 tab PO BID 0RF Rx Instructions: started 11/23/21 x 5 days losartan 50 mg tablet 50 mg PO DAILY 0RF Discharge Orders: Discharge Order (Routine); Ordered 12/03/21 Ordered By: Kenya Metz Diet: advance to usual diet, low fat, low cholesterol and low salt diet Activity on Discharge: As tolerated Stand Alone Forms: Patient Portal Discharge page Other Ambulatory Orders: Basic Metabolic Panel (Routine) Timeframe: 20211210 Facility: [facility] - Location: Laboratory Ordered By: eKnya Metz Complete Blood Count no Diff (Routine) Timeframe: 20211210 Facility: [facility] - Location: Laboratory Ordered By: Kenya Metz Care Plan Goals: Noted to have bradycardia is status post dual-chamber pacemaker on November 30 follow-up with Dr. Phelps in 2 weeks for wound check and device interrogation, Will no lifting arm above the level of shoulder reaching behind with that arm, okay to shower, no baths or scrubbing the wound call office with any fevers drainage or increasing redness around the wound, in regard to atrial fibrillation stop using amiodarone continue low-dose propranolol and Xarelto For anemia follow-up with Hematology Dr. Hernandez in 2-4 weeks, check CBC in 1 week Chronic hyponatremia stable check BMP in 1 week Chronic COPD/obstructive sleep apnea continue 2 L of oxygen take prednisone 40 mg by mouth daily for 7 days and wean by 10 mg Q weekly follow-up with Dr. Rosales in 2 weeks Health Concerns: Continue all medications as prescribed, being discharged home with PT services bedside commode and walker Plan of Treatment: Follow-up with Dr. Phelps in 2 weeks, follow-up with pulmonology Dr. Rosales in 2 weeks follow-up with primary care physician 1-2 weeks. Outpatient follow-up with Dr. Hernandez from Hematology in 2 weeks for anemia Assessment: Per discharge summary Discharge Date/Time: 12/03/21 15:03
[2021-12-03] MEDS: Sodium Zirconium Cyclosilicate 5 GM POWD.PACK PO (14:51)
[2021-12-05 18:21] LABS: Haptoglobin 232 mg/dL (43-212)
[2021-12-06 16:32] LABS: IgA 333 mg/dL (70-320); IgG 1401 mg/dL (600-1540); IgM 57 mg/dL (50-300)
== END 2021-12-03 15:03 | disposition home health service (06) | DRG 242 ==
LOC: HO.ED 13:47 → HO.EDOVER 14:30 → HO.S3 11-27 08:54 → HO.IMC 12-01 00:43
PROVIDERS: Internal Medicine Medical Oncology; Physician Assistant; Physician Assistant Medical; Surgery; Admitting Provider Family Medicine; Emergency Provider Emergency Medicine; PCP Internal Medicine; Visit Provider Hospitalist
PROC: 0JH606Z Insertion of Pacemaker, Dual Chamber into Chest Subcutaneous Tissue and Fascia, Open Approach (ICD-10-PCS; principal; 2021-11-30 14:00)
DX: I13.0 Hypertensive heart and chronic kidney disease with heart failure and stage 1 through stage 4 chronic kidney disease, or unspecified chronic kidney disease (principal); J96.21 Acute and chronic respiratory failure with hypoxia; I50.33 Acute on chronic diastolic (congestive) heart failure; I44.2 Atrioventricular block, complete; Z68.42 Body mass index [BMI] 45.0-49.9, adult; E87.1 Hypo-osmolality and hyponatremia; N17.9 Acute kidney failure, unspecified; E66.2 Morbid (severe) obesity with alveolar hypoventilation; E87.3 Alkalosis; I48.0 Paroxysmal atrial fibrillation; J44.9 Chronic obstructive pulmonary disease, unspecified; R00.1 Bradycardia, unspecified; T50.1X5A Adverse effect of loop [high-ceiling] diuretics, initial encounter; D50.9 Iron deficiency anemia, unspecified; D72.829 Elevated white blood cell count, unspecified; D63.1 Anemia in chronic kidney disease; J84.112 Idiopathic pulmonary fibrosis; N18.9 Chronic kidney disease, unspecified; Z99.81 Dependence on supplemental oxygen; Z20.822 Contact with and (suspected) exposure to COVID-19; Z79.01 Long term (current) use of anticoagulants; Z79.899 Other long term (current) drug therapy
CPT/HCPCS: 30901; 36415; 71045; 71250; 80048; 80053; 82607; 82728; 82746; 82784; 82803; 83010; 83540; 83615; 83880; 84466; 84484; 85025; 85027; 85045; 85610; 85730; 86334; 86850; 86900; 86901; 87635; 93005; 94640; 96374; 97116; 97163; 97530; 99283; 99285; C1758; C1785; C1892; C1898; C9046; J0690; J1100; J1940; J2250; J2405; J2920; J3010; J3370

== ENCOUNTER → 2021-12-24 13:10 | Outpatient (BNVA) | payer MEDICARE, SELFPAY | PROVIDERS: PCP Internal Medicine; Visit Provider Internal Medicine | DX: Z13.89 Encounter for screening for other disorder (principal) | CPT/HCPCS: 99212 ==

== ENCOUNTER → 2022-01-22 09:53 | Outpatient (BNVA) | payer MEDICARE, SELFPAY | PROVIDERS: PCP Internal Medicine; Referring Provider Internal Medicine; Visit Provider Internal Medicine Cardiovascular Disease | DX: J96.11 Chronic respiratory failure with hypoxia (principal); I48.0 Paroxysmal atrial fibrillation; I50.32 Chronic diastolic (congestive) heart failure; Z79.01 Long term (current) use of anticoagulants; Z79.899 Other long term (current) drug therapy; Z45.018 Encounter for adjustment and management of other part of cardiac pacemaker | CPT/HCPCS: 93280; 99212 ==

== ENCOUNTER → 2022-02-04 13:04 | Outpatient (BNVA) | payer MEDICARE, SELFPAY | PROVIDERS: PCP Internal Medicine; Visit Provider Internal Medicine | DX: E66.01 Morbid (severe) obesity due to excess calories (principal); J98.4 Other disorders of lung; J84.9 Interstitial pulmonary disease, unspecified; R09.02 Hypoxemia; Z99.81 Dependence on supplemental oxygen; Z68.41 Body mass index [BMI] 40.0-44.9, adult | CPT/HCPCS: 99212 ==

== ENCOUNTER 2022-02-06 09:22 | Emergency (ER) | payer MEDICARE, SELFPAY ==
--- NOTE | ~2022-02-06 | XR_ITS ---
EXAMINATION: XR CHEST CLINICAL INFORMATION: Shortness of breath COMPARISON: None TECHNIQUE: Frontal view of the chest was obtained. FINDINGS: Once again patchy airspace opacities are seen. There is certainly no worsening here. Some improvement in the mid-upper lung zones. Pacer wires are unchanged in position. Low lung volumes. The cardiac silhouette is comparable XR/XR chest 1V IMPRESSION: Low lung volumes. No worsening in some likely improvement in patchy opacifications in the mid to upper lung zones. Continued follow-up recommended. There is no failure. No significant effusion
[2022-02-06 09:27] VITALS: BP 134/86; PULSE 70; O2SAT 99
[2022-02-06 09:29] VITALS: BP 146/58; PULSE 64; RESP 18; TEMP 36.6; O2SAT 100; BMI 45.2
--- NOTE | 2022-02-06 10:17 | ECG_ITS ---
Test Reason : difficulty breathing Blood Pressure : / mmHG Vent. Rate : 062 BPM Atrial Rate : 067 BPM P-R Int : 000 ms QRS Dur : 214 ms QT Int : 508 ms P-R-T Axes : 091 -51 091 degrees QTc Int : 515 ms Artifact in tracing Ventricular-paced rhythm Abnormal ECG When compared with ECG of 27-NOV-2021 11:46, Rhythm change Referred By: Gilson Solis Electronically Signed By:GILL SONG
--- NOTE | 2022-02-06 10:19 | ED_ITS ---
HPI - General Adult General Chief complaint: General Medical Stated complaint: DIFF BREATHING Time Seen by Provider: 02/06/22 10:15 Source: patient Mode of arrival: EMS Limitations: no limitations History of Present Illness HPI narrative: This is a 76 years old male with history of COPD O2 dependent 2.5 liter pr esented with a chief complaint of shortness of breath, symptoms started this morning he stated he feeling a little bit better now denies any chest pain. The patient is anticoagulated for A.Fib Onset (ago): hour(s) (2) Severity: mild Relieving factors: none Exacerbating factors: none Related Data Home Medications Medication Instructions Recorded Confirmed allopurinol 100 mg tablet 200 mg PO BEDTIME tab 07/25/20 01/22/22 byplafmesj-caanrgfuahzid-qastcmiq 1 tab PO Q6H PRN 07/25/20 01/22/22 50 mg-325 mg-40 mg tablet cholecalciferol (vitamin D3) 25 25 mcg PO DAILY 07/25/20 01/22/22 mcg (1,000 unit) capsule multivitamin 1 tab PO DAILY 07/25/20 01/22/22 atorvastatin 20 mg tablet 20 mg PO DAILY 06/06/21 01/22/22 omega 1-pas-bql-fish oil 1,200 mg 1 cap PO DAILY 11/26/21 01/22/22 (144 mg-216 mg) capsule (Fish Oil) Previous Rx's Medication Instructions Recorded rivaroxaban 15 mg tablet (Xarelto) 15 mg PO DAILY@1700 #90 tab 08/08/21 Spiriva Respimat 2.5 mcg/actuation 2 puff PO DAILY #4 g NS 11/13/21 solution for inhalation (tiotropium bromide) bumetanide 1 mg tablet 1 mg PO DAILY #30 tab 12/03/21 commode (bedside commode) #1 ea 12/03/21 propranolol 20 mg tablet 20 mg PO BID #60 tab 12/03/21 walker (Ultra-Light Rollator) #1 ea 12/03/21 doxycycline monohydrate 100 mg 100 mg PO BID #14 cap 02/06/22 capsule prednisone 20 mg tablet 60 mg PO DAILY #12 tab 02/06/22 Allergies Allergy/AdvReac Type Severity Reaction Status Date / Time No Known Allergies Allergy Verified 02/04/22 13:26 [No Known Allergies*] Review of Systems Constitutional: Constitutional: Reports no additional constitutional complaints ENT: Reports system reviewed and no additional complaints, except as docum ented Cardiovascular: Cardiovascular: Reports no additional cardiovascular complaints Respiratory: Respiratory: Reports no additional respiratory complaints Gastrointestinal: Gastrointestinal: Reports no additional gastrointestinal complaints Musculoskeletal: Musculoskeletal: Reports no additional musculoskeletal complaints Neurologic: Reports system reviewed and no additional complaints, except as documented [facility] Past Medical History Medical History Aortic stenosis Atrial fibrillation with slow ventricular response CHF (congestive heart failure) Chronic heart failure with preserved ejection fraction (HFpEF) Chronic hyponatremia CKD (chronic kidney disease) COPD (chronic obstructive pulmonary disease) First degree AV block HTN (hypertension) Hypoxemia Hypoxemia requiring supplemental oxygen Interstitial lung disease IPF (idiopathic pulmonary fibrosis) Morbid obesity Morbid obesity Pacemaker (~2021) Paroxysmal atrial fibrillation Pulmonary fibrosis Restrictive lung disease Restrictive lung disease Surgical History History of pacemaker (~2021) History of surgery on wrist Family History Family History Father Cancer Mother Dementia Social History Social History Household Members: Spouse Housing: House Do you presently have visiting nurse or other home services: No Alcohol intake: never Patient Tobacco Use Status: Never used Tobacco Use of substances other than those prescribed or required for medical reasons: No Advance Directives: Yes Advance Directives on File: Yes Advance Directives Date on File: 06/08/21 service: No Current occupational status: retired Physical Exam ED Vital Signs: Vital Signs - 24 hr 02/06/22 09:29 02/06/22 11:56 02/06/22 13:07 Temperature 97.8 F 97.8 F Pulse Rate 64 65 66 Respiratory Rate 18 20 21 H Blood Pressure 146/58 H 138/91 H Pulse Oximetry 100 100 02/06/22 13:13 Temperature 97.9 F Pulse Rate 69 Respiratory Rate 22 H Blood Pressure 132/62 Pulse Oximetry 93 BMI result Body Mass Index 45.2 Const General: cooperative, comfortable and no acute distress HENMT Head: Yes normal to inspection General nose exam: Normal external nose present Face and sinus: Yes normal facial exam Mouth: Normal oral and palatal mucosa present Throat: Yes posterior oropharynx normal Neck Neck: Yes normal visual inspection Chest Chest palpation & inspection: normal inspection of the chest Resp Effort & Inspection: normal respiratory effort and able to speak in complete sentences Auscultation: clear to auscultation bilaterally Cardio Jugular venous distension: no JVD Rate: regular rate Rhythm: regular rhythm GI Inspection: Yes normal to inspection Palpation (GI): Soft to palpation Skin General skin exam: no rashes or lesions noted Course Reevaluation(s) Reevaluation #1: Patient remained stable, O2 sat is 100%, chest x-ray showing no acute disease, delta troponin okay, BNP not elevated, unlikely pulmonary emboli because he is already anticoagulated. I think the patient can be discharged home will treat him as a COPD flare I would discharge him on prednisone and antibiotic. Discussed with the patient is very comfortable with the plan Time: 14:26 Medical Decision Making Lab Data Lab results reviewed: Yes I reviewed the patient's lab results. Result diagrams: 02/06/22 11:12 02/06/22 11:11 Labs: Lab Results 02/06/22 02/06/22 02/06/22 Range/Units 11:11 11:11 11:11 WBC (4.8-10.8) X10*3/uL RBC (4.60-5.80) X10*6/uL Hgb (14.0-18.0) g/dl Hct (42.0-52.0) % MCV (80.0-98.0) fL MCH (27.0-33.0) pg MCHC (31.0-36.0) g/dl RDW (11.0-16.0) % Plt Count (160-400) X10*3/uL MPV (9.4-12.4) fL Immature Gran % (Auto) (0.0-0.4) % Neut % (Auto) (45-73) % Lymph % (Auto) (20-40) % [place] % (Auto) (2-11) % Eos % (Auto) (0-4) % Baso % (Auto) (0-2) % Lymph # (Auto) (1.2-4.9) X10*3/uL [place] # (Auto) (0.1-1.2) X10*3/uL Eos # (Auto) (0.0-0.4) X10*3/uL Baso # (Auto) (0.0-0.2) X10*3/uL Abs Immat Gran (auto) (0.00-0.03) X10*3/uL Absolute Neuts (auto) (2.0-8.3) x10*3/uL Absolute Nucleated RBC (0.0-0.012) X10*3/uL Nucleated RBC % (auto) (0.0-0.2) /100WBC PT 17.1 H (9.9-13.0) SEC INR 1.5 H (0.9-1.1) APTT 39.9 H Cancelled (24.1-38.0) SEC Sodium 138 (135-145) mmol/L Potassium 4.0 D (3.3-5.1) mmol/L Chloride 92 L (96-108) mmol/L Carbon Dioxide 36 H (22-29) mmol/L Anion Gap 14 (12-20) BUN 25 H (9-16) mg/dL Creatinine 1.39 (0.5-1.4) mg/dL Estim Creat Clear Calc 62.6 Estimated GFR 50 Random Glucose 144 H (60-115) mg/dL Calcium 10.0 (8.4-10.2) mg/dL Total Bilirubin 0.7 (0.0-1.0) mg/dL AST 25 (5-37) U/L ALT 15 (0-40) U/L Alkaline Phosphatase 128 H (39-117) U/L Troponin I High Sens (<3.5-35.0) ng/L B-Natriuretic Peptide (<100) pg/mL Total Protein 7.8 (6.5-8.0) g/dL Albumin 3.8 (3.5-5.0) g/dL COVID-19 (LADY) (Negative) COVID-19 Clin Com 02/06/22 02/06/22 02/06/22 Range/Units 11:11 11:12 11:12 WBC 10.8 (4.8-10.8) X10*3/uL RBC 3.54 L (4.60-5.80) X10*6/uL Hgb 11.3 L (14.0-18.0) g/dl Hct 35.0 L (42.0-52.0) % MCV 98.9 H (80.0-98.0) fL MCH 31.9 (27.0-33.0) pg MCHC 32.3 (31.0-36.0) g/dl RDW 17.0 H (11.0-16.0) % Plt Count 296 D (160-400) X10*3/uL MPV 9.9 (9.4-12.4) fL Immature Gran % (Auto) 0.6 H (0.0-0.4) % Neut % (Auto) 79.0 H (45-73) % Lymph % (Auto) 9.5 L (20-40) % [place] % (Auto) 7.1 (2-11) % Eos % (Auto) 3.4 (0-4) % Baso % (Auto) 0.4 (0-2) % Lymph # (Auto) 1.0 L (1.2-4.9) X10*3/uL [place] # (Auto) 0.8 (0.1-1.2) X10*3/uL Eos # (Auto) 0.4 (0.0-0.4) X10*3/uL Baso # (Auto) 0.0 (0.0-0.2) X10*3/uL Abs Immat Gran (auto) 0.06 H (0.00-0.03) X10*3/uL Absolute Neuts (auto) 8.5 H (2.0-8.3) x10*3/uL Absolute Nucleated RBC 0.000 (0.0-0.012) X10*3/uL Nucleated RBC % (auto) 0.0 (0.0-0.2) /100WBC PT (9.9-13.0) SEC INR (0.9-1.1) APTT (24.1-38.0) SEC Sodium (135-145) mmol/L Potassium (3.3-5.1) mmol/L Chloride (96-108) mmol/L Carbon Dioxide (22-29) mmol/L Anion Gap (12-20) BUN (9-16) mg/dL Creatinine (0.5-1.4) mg/dL Estim Creat Clear Calc Estimated GFR Random Glucose (60-115) mg/dL Calcium (8.4-10.2) mg/dL Total Bilirubin (0.0-1.0) mg/dL AST (5-37) U/L ALT (0-40) U/L Alkaline Phosphatase (39-117) U/L Troponin I High Sens 13.2 D (<3.5-35.0) ng/L B-Natriuretic Peptide 122 H (<100) pg/mL Total Protein (6.5-8.0) g/dL Albumin (3.5-5.0) g/dL COVID-19 (LADY) (Negative) COVID-19 Clin Com 02/06/22 02/06/22 Range/Units 11:12 13:41 WBC (4.8-10.8) X10*3/uL RBC (4.60-5.80) X10*6/uL Hgb (14.0-18.0) g/dl Hct (42.0-52.0) % MCV (80.0-98.0) fL MCH (27.0-33.0) pg MCHC (31.0-36.0) g/dl RDW (11.0-16.0) % Plt Count (160-400) X10*3/uL MPV (9.4-12.4) fL Immature Gran % (Auto) (0.0-0.4) % Neut % (Auto) (45-73) % Lymph % (Auto) (20-40) % [place] % (Auto) (2-11) % Eos % (Auto) (0-4) % Baso % (Auto) (0-2) % Lymph # (Auto) (1.2-4.9) X10*3/uL [place] # (Auto) (0.1-1.2) X10*3/uL Eos # (Auto) (0.0-0.4) X10*3/uL Baso # (Auto) (0.0-0.2) X10*3/uL Abs Immat Gran (auto) (0.00-0.03) X10*3/uL Absolute Neuts (auto) (2.0-8.3) x10*3/uL Absolute Nucleated RBC (0.0-0.012) X10*3/uL Nucleated RBC % (auto) (0.0-0.2) /100WBC PT (9.9-13.0) SEC INR (0.9-1.1) APTT (24.1-38.0) SEC Sodium (135-145) mmol/L Potassium (3.3-5.1) mmol/L Chloride (96-108) mmol/L Carbon Dioxide (22-29) mmol/L Anion Gap (12-20) BUN (9-16) mg/dL Creatinine (0.5-1.4) mg/dL Estim Creat Clear Calc Estimated GFR Random Glucose (60-115) mg/dL Calcium (8.4-10.2) mg/dL Total Bilirubin (0.0-1.0) mg/dL AST (5-37) U/L ALT (0-40) U/L Alkaline Phosphatase (39-117) U/L Troponin I High Sens 12.6 (<3.5-35.0) ng/L B-Natriuretic Peptide (<100) pg/mL Total Protein (6.5-8.0) g/dL Albumin (3.5-5.0) g/dL COVID-19 (LADY) Negative (Negative) COVID-19 Clin Com See Note Imaging Data Chest x-ray: Radiologist's impression: None TECHNIQUE: Frontal view of the chest was obtained. FINDINGS: Once again patchy airspace opacities are seen. There is certainly no worsening here. Some improvement in the mid-upper lung zones. Pacer wires are unchanged in position. Low lung volumes. The cardiac silhouette is comparable XR/XR chest 1V IMPRESSION: Low lung volumes. No worsening in some likely improvement in patchy opacifications in the mid to upper lung zones. Continued follow-up recommended. There is no failure. No significant effusion ? Dictated By: Surendra Calderon MD Signed By: <Electronically signed by Surendra Calderon MD in OV> 02/06/22 1159 Discharge Plan Discharge Clinical Impression: Asthma exacerbation in COPD Patient Disposition: Home, Self-Care Instructions: COPD (Chronic Obstructive Pulmonary Disease) (DC) Additional Instructions: please follow-up with your primary care physician, return if you worse. Prescriptions: New prednisone 20 mg tablet 60 mg PO DAILY Qty: 12 0RF doxycycline monohydrate 100 mg capsule 100 mg PO BID Qty: 14 0RF No Action Xarelto 15 mg tablet 15 mg PO DAILY@1700 Qty: 90 3RF Rx Instructions: must administer with evening meal Spiriva Respimat 2.5 mcg/actuation mist 2 puff PO DAILY Qty: 4 3RF atorvastatin 20 mg tablet 20 mg PO DAILY 0RF omega 1-afh-ntr-fish oil [Fish Oil] 1,200 (144-216) mg Capsule 1 cap PO DAILY 0RF bumetanide 1 mg Tablet 1 mg PO DAILY Qty: 30 0RF Protocol: Hold for SBP< HOLD for SBP < : 90 propranolol 20 mg Tablet 20 mg PO BID Qty: 60 0RF Protocol: Hold for SBP/HR < HOLD for SBP < : 90 HOLD for HR < : 60 (DME) bedside commode Kit See Rx Instructions .Route Qty: 1 0RF Rx Instructions: As directed (DME) Ultra-Light Rollator Misc See Rx Instructions .Route Qty: 1 0RF Rx Instructions: As directed nkrhkdtdlz-xkxiisjnrlvjn-dfsf 50-325-40 mg tablet 1 tab PO Q6H PRN (Reason: Migraine Headache) 0RF multivitamin Tablet 1 tab PO DAILY 0RF cholecalciferol (vitamin D3) 25 mcg (1,000 unit) capsule 25 mcg PO DAILY 0RF allopurinol 100 mg tablet 200 mg PO BEDTIME 0RF Referrals: Physician,Unknown J [Primary Care Provider] - 2 days Interventions: ED Discharge Assessment Last Done: 02/06/22 15:28 Discharge Date/Time: 02/06/22 15:29
[2022-02-06 11:15] LABS: MANUAL DIFF FLAG NO
[2022-02-06 11:19] LABS: Basophils Percent Auto 0.4 % (0-2); Eosinophils Absolute Auto 0.4 X10*3/uL (0.0-0.4); Eosinophils Percent Auto 3.4 % (0-4); Hemoglobin 11.3 g/dl (14.0-18.0); Imm Gran Abs Auto 0.06 X10*3/uL (0.00-0.03); Imm Gran Pct Auto 0.6 % (0.0-0.4); Lymphocytes Percent Auto 9.5 % (20-40); Mean Corpuscular HGB Conc 32.3 g/dl (31.0-36.0); Mean Corpuscular Hemoglobin 31.9 pg (27.0-33.0); Mean Corpuscular Volume 98.9 fL (80.0-98.0); Mean Platelet Volume 9.9 fL (9.4-12.4); Monocytes Absolute Auto 0.8 X10*3/uL (0.1-1.2); Monocytes Percent Auto 7.1 % (2-11); Neutrophils Absolute Auto 8.5 x10*3/uL (2.0-8.3); Platelet Count 296 X10*3/uL (160-400); Red Blood Count 3.54 X10*6/uL (4.60-5.80); White Blood Count 10.8 X10*3/uL (4.8-10.8)
[2022-02-06 11:27] LABS: INTERNATIONAL NORM RATIO 1.5 (0.9-1.1); Prothrombin Time 17.1 SEC (9.9-13.0)
[2022-02-06 11:30] LABS: Partial Thromboplastin Time 39.9 SEC (24.1-38.0)
[2022-02-06 11:39] LABS: Alanine Aminotransferase 15 U/L (0-40); Albumin Level 3.8 g/dL (3.5-5.0); Alkaline Phosphatase 128 U/L (39-117); Anion Gap 14 (12-20); Aspartate Amino Transferase 25 U/L (5-37); Bilirubin Total 0.7 mg/dL (0.0-1.0); Blood Urea Nitrogen 25 mg/dL (9-16); Carbon Dioxide 36 mmol/L (22-29); Chloride 92 mmol/L (96-108); Creatinine Clr Calc Pharmacy 62.6; Estimated Glomerular Filt Rate 50; Glucose Random 144 mg/dL (60-115); Sodium 138 mmol/L (135-145); Total Protein 7.8 g/dL (6.5-8.0)
[2022-02-06 11:40] LABS: Troponin-I High Sensitivity 13.2 ng/L (<3.5-35.0)
[2022-02-06 11:40] LABS: B Type Natriuretic Peptide 122 pg/mL (<100)
[2022-02-06 11:43] LABS: COVID-19 Test Negative (Negative); IDNOW Serial# 16C4AD1C
[2022-02-06 11:56] VITALS: BP 138/91; PULSE 65; RESP 20; TEMP 36.6; O2SAT 100
[2022-02-06] MEDS: Albuterol/Iprat 2.5/0.5MG 3 ML AMPUL.NEB INHALE (13:02)
[2022-02-06 13:07] VITALS: PULSE 66; RESP 21; O2SAT 100
[2022-02-06 13:13] VITALS: BP 132/62; PULSE 69; RESP 22; TEMP 36.6; O2SAT 93
[2022-02-06] MEDS: methylPREDNISolone Sod Succ 125 MG/2 ML VIAL IVPUSH (13:16)
[2022-02-06 14:07] LABS: Troponin-I High Sensitivity 12.6 ng/L (<3.5-35.0)
== END 2022-02-06 15:29 | disposition home or self-care (01) ==
PROVIDERS: Emergency Provider Emergency Medicine
DX: J44.1 Chronic obstructive pulmonary disease with (acute) exacerbation (principal); R06.02 Shortness of breath; I48.91 Unspecified atrial fibrillation; I13.0 Hypertensive heart and chronic kidney disease with heart failure and stage 1 through stage 4 chronic kidney disease, or unspecified chronic kidney disease; N18.9 Chronic kidney disease, unspecified; I50.9 Heart failure, unspecified; Z20.822 Contact with and (suspected) exposure to COVID-19; Z99.81 Dependence on supplemental oxygen; Z79.01 Long term (current) use of anticoagulants; Z79.02 Long term (current) use of antithrombotics/antiplatelets; Z95.0 Presence of cardiac pacemaker
CPT/HCPCS: 36415; 71045; 80053; 83880; 84484; 85025; 85610; 85730; 87635; 93005; 94640; 94664; 96374; 99284; J2930

== ENCOUNTER → 2022-05-09 09:56 | Outpatient (BNVA) | payer MEDICARE, SELFPAY | PROVIDERS: PCP Internal Medicine; Visit Provider Internal Medicine Cardiovascular Disease | DX: I35.0 Nonrheumatic aortic (valve) stenosis (principal); I50.32 Chronic diastolic (congestive) heart failure; I48.0 Paroxysmal atrial fibrillation; Z95.0 Presence of cardiac pacemaker; J96.11 Chronic respiratory failure with hypoxia | CPT/HCPCS: 93280; 99212 ==

== ENCOUNTER → 2022-05-13 13:01 | Outpatient (BNVA) | payer MEDICARE, SELFPAY | PROVIDERS: PCP Internal Medicine; Visit Provider Internal Medicine | DX: J84.9 Interstitial pulmonary disease, unspecified (principal); R09.02 Hypoxemia; J98.4 Other disorders of lung; E66.01 Morbid (severe) obesity due to excess calories; Z95.0 Presence of cardiac pacemaker; Z99.81 Dependence on supplemental oxygen | CPT/HCPCS: 99212 ==

== ENCOUNTER → 2022-06-18 12:44 | Outpatient (REF) | payer MEDICARE, SELFPAY ==
--- NOTE | 2022-06-18 12:46 | CA_ITS ---
Transthoracic Echocardiogram Patient (Last, First, Middle): Philip Ramirez P Gender: Male Date of : 1945 Age: 76 Procedure Date: 06/18/2022 Procedure Type: Transthoracic Echocardiogram Location: OP Height: 175.26 cm Weight: 125.65 kg BSA: 2.37 m2 Heart Rate: bpm BP: 110 / 62 mmHg Fitter Tacker: Referring MD: Jean Kennedy MD Symptoms: I35.0 - Nonrheumatic aortic (valve) stenosis Study Quality: Fair/Contrast used ECG Rhythm: Ventriculary paced rhythm Conclusions: - The left ventricular systolic function is normal. The calculated ejection fraction is 64% by biplane method. - There is moderate aortic valve stenosis. Findings Procedure Information Contrast agent, definity, is being given per protocol without apparent complications. Left Ventricle Normal left ventricular cavity size. There is mildly increased left ventricular wall thickness. The left ventricular systolic function is normal. The calculated ejection fraction is 64% by biplane method. There is no evidence of regional wall motion abnormalities. Diastolic function is indeterminate on the basis of available data. Right Ventricle The right ventricle was not well visualized. Normal right ventricular cavity size. There is a pacemaker wire seen in the right ventricle. Atria Both atria are normal in size. Aortic Valve The aortic valve was not well visualized. There is moderate aortic valve stenosis. The mean gradient is 24 mmHg. The aortic valve area is 1.35 cm2. There is no aortic valve regurgitation. Dimensionless index 0.39. Mitral Valve The mitral valve appears normal. There is no mitral valve regurgitation. There is no mitral valve stenosis. Pulmonic Valve The pulmonic valve is likely normal. Tricuspid Valve There is trace tricuspid valve regurgitation. There is no evidence of pulmonary hypertension. Great Vessels The asc aorta is normal in size. Venous The inferior vena cava is mildly dilated and collapses greater than 50% with inspiration. Pericardium/Pleural There is no evidence of pericardial effusion. Prior Study Comparison Changes noted compared to prior study dated: 01/24/2021. Progression of aortic valve stenosis. Measurements 2D Linear Measurements IVSd: 1.40 0.6-0.9/0.6-1.0 cm LVIDd: 5.09 3.9-5.3/4.2-5.9 cm LVIDd Index: 2.15 2.4-3.2/2.2-3.1 cm/m2 LVIDs: 3.36 2.0-3.6 cm LVPWd: 1.44 0.7-1.1 cm Ao Root: 3.50 2.1-3.5 cm LA Diam: 3.60 2.7-3.8/3.0-4.0 cm LAIDs Index: 1.52 1.5-2.3 cm/m2 LV Mass: 381.48 67-162/88-224 g LV Mass Index: 160.96 43-95/49-115 g/m2 LVOT Diam: 2.10 3.0+(-)1.3 cm 2D Systolic Function EF 4C: 64.20 >55% EF 2C: 63.60 >55% EF BiP: 64.00 >55% Mitral Valve MV Pk E: 1.12 MV Decel Time: 121.00 E'Lateral: 12.50 E'Medial: 9.25 E/E' Med: 12.10 E/E' Lat: 9.00 PHT: 36.00 MVA PHT: 6.11 Decel Donley: 9.21 Aortic Valve AoV Pk Andrew: 3.09 AoV Mn Andrew: 2.31 AoV VTI: 0.63 AoV Pk Grad: 38.00 Aov Mn Grad: 24.00 TAD Cont.VTI: 1.35 LVOT LVOT Pk Andrew: 1.19 LVOT Mn Andrew: 0.78 LVOT VTI: 0.25 LVOT Pk Grad: 6.00 LVOT Mn Grad: 3.00 LVOT Diam: 2.10 LVOT Area: 3.46 Diastolic Function MV Pk E: 1.12 E'Medial: 9.25 E/E' Med: 12.10 E' Laterial: 12.50 E/E' Lat: 9.00 Tricuspid Valve TR Pk Andrew: 2.74 TR Pk Grad: 30.00 RA Press: 8.00 RVSP: 38.00 Great Vessels Aorta Ao Root-2D: 3.50 2.0-3.7 cm Ao Asc: 3.50 2.1-3.4 cm Pulmonary Valve PV Pk Andrew: 1.64 Peak PV Grad: 11.00 Updated in Other Vendor System with Status of Final Rogelio Haro MD electronically signed on 06/19/2022 2:49:03 PM with status of Final
== END ==
LOC: HO.CARD 12:44
PROVIDERS: PCP Internal Medicine; Visit Provider Internal Medicine Cardiovascular Disease
DX: I35.0 Nonrheumatic aortic (valve) stenosis (principal)
CPT/HCPCS: 93306; Q9957

== ENCOUNTER → 2022-08-06 12:07 | Outpatient (BNVA) | payer MEDICARE, SELFPAY | PROVIDERS: PCP Internal Medicine; Referring Provider Internal Medicine; Visit Provider Internal Medicine Cardiovascular Disease | DX: Z45.018 Encounter for adjustment and management of other part of cardiac pacemaker (principal); I50.32 Chronic diastolic (congestive) heart failure; I48.0 Paroxysmal atrial fibrillation; I35.0 Nonrheumatic aortic (valve) stenosis | CPT/HCPCS: 93280; 99212 ==

== ENCOUNTER → 2022-09-17 13:26 | Outpatient (BNVA) | payer MEDICARE, SELFPAY | PROVIDERS: PCP Internal Medicine; Visit Provider Internal Medicine | DX: J44.9 Chronic obstructive pulmonary disease, unspecified (principal); J84.9 Interstitial pulmonary disease, unspecified; J98.4 Other disorders of lung; R09.02 Hypoxemia; I13.0 Hypertensive heart and chronic kidney disease with heart failure and stage 1 through stage 4 chronic kidney disease, or unspecified chronic kidney disease; I50.32 Chronic diastolic (congestive) heart failure; N18.9 Chronic kidney disease, unspecified; E66.01 Morbid (severe) obesity due to excess calories; Z99.3 Dependence on wheelchair; Z99.81 Dependence on supplemental oxygen | CPT/HCPCS: 99212 ==

== ENCOUNTER 2022-09-30 12:01 | Outpatient (REF) | payer MEDICARE, SELFPAY ==
[2022-09-30 12:18] LABS: MANUAL DIFF FLAG NO
[2022-09-30 12:47] LABS: Basophils Absolute Auto 0.1 X10*3/uL (0.0-0.2); Basophils Percent Auto 0.5 % (0-2); Eosinophils Absolute Auto 0.3 X10*3/uL (0.0-0.4); Eosinophils Percent Auto 2.6 % (0-4); Hematocrit 33.5 % (42.0-52.0); Hemoglobin 10.6 g/dl (14.0-18.0); Imm Gran Abs Auto 0.06 X10*3/uL (0.00-0.03); Imm Gran Pct Auto 0.6 % (0.0-0.4); Lymphocytes Absolute Auto 1.6 X10*3/uL (1.2-4.9); Lymphocytes Percent Auto 16.1 % (20-40); Mean Corpuscular HGB Conc 31.6 g/dl (31.0-36.0); Mean Corpuscular Hemoglobin 33.1 pg (27.0-33.0); Mean Corpuscular Volume 104.7 fL (80.0-98.0); Mean Platelet Volume 10.2 fL (9.4-12.4); Monocytes Percent Auto 9.7 % (2-11); Neutrophils Absolute Auto 6.9 x10*3/uL (2.0-8.3); Neutrophils Percent Auto 70.5 % (45-73); Platelet Count 222 X10*3/uL (160-400); Red Cell Distribution Width 15.2 % (11.0-16.0); White Blood Count 9.8 X10*3/uL (4.8-10.8)
[2022-09-30 13:07] LABS: Anion Gap 13 (12-20); Blood Urea Nitrogen 28 mg/dL (9-16); Calcium 9.6 mg/dL (8.4-10.2); Carbon Dioxide 37 mmol/L (22-29); Chloride 96 mmol/L (96-108); Estimated Glomerular Filt Rate > 60; Glucose Random 104 mg/dL (60-115); Potassium 4.6 mmol/L (3.3-5.1); Sodium 141 mmol/L (135-145)
[2022-09-30 14:16] LABS: B Type Natriuretic Peptide 268 pg/mL (<100)
== END 2022-09-30 12:02 | disposition home or self-care (01) ==
LOC: HO.LAB 12:01
PROVIDERS: Nurse Practitioner Family; Visit Provider Internal Medicine Cardiovascular Disease
DX: I48.0 Paroxysmal atrial fibrillation (principal); N18.9 Chronic kidney disease, unspecified
CPT/HCPCS: 36415; 80048; 83880; 85025

== ENCOUNTER → 2023-01-14 13:16 | Outpatient (BNVA) | payer MEDICARE, SELFPAY | PROVIDERS: PCP Internal Medicine; Visit Provider Internal Medicine | DX: J84.9 Interstitial pulmonary disease, unspecified (principal); J98.4 Other disorders of lung; J44.9 Chronic obstructive pulmonary disease, unspecified; E66.01 Morbid (severe) obesity due to excess calories; Z99.81 Dependence on supplemental oxygen | CPT/HCPCS: 99212 ==

== ENCOUNTER 2023-02-06 12:45 | Outpatient (REF) | payer MEDICARE, SELFPAY ==
--- NOTE | ~2023-02-06 | CT_ITS ---
EXAMINATION: CT CHEST WITHOUT CONTRAST CLINICAL INFORMATION: Interstitial lung disease. COMPARISON: Previous chest x-ray most recent January [address] most recent November 2021. TECHNIQUE: Axial images through the chest without contrast. High-resolution thin axial images were also performed. Sagittal and coronal reconstructions on the technologist's workstation were performed. This CT examination was performed using dose optimization techniques as appropriate, variously including the following: *Automated exposure control *Adjustment of mA and/or kV according to patient size (this includes techniques or standardized protocols for targeted exams where dose is matched to indication/reason for exam; i.e. extremities or head) *Use of iterative reconstruction technique DLP: 341 mGy-cm. FINDINGS: Chest: There are increased peripheral reticular markings. This is greatest at the lung bases. There is traction bronchiolectasis seen in both lower lobes. There is increased peripheral parenchymal attenuation greatest at the lung bases. The previously identified areas of scattered ground-glass attenuation and denser areas of airspace disease appear improved from November 2021 exam. No honeycombing. No endobronchial or endotracheal lesion. Left subclavian dual chamber pacemaker appears unchanged. Diffuse mediastinal lymphadenopathy not appreciably changed. Largest lymph node is a right precarinal lymph node measuring 1.6 cm in short axis. Enlarged heart. No pericardial effusion. Moderate coronary artery calcification. Normal caliber thoracic aorta. Prominent pulmonary arteries, main pulmonary artery measuring 3.2 cm. No pleural effusion or pleural thickening. No chest wall mass or enlarged axillary lymph nodes. Question mild cirrhotic changes of the liver. Small liver calcifications. Stable small low-attenuation liver lesions. Larger lesions probably represent cysts. Largest lesion measures 1.5 cm in the medial segment of the left lobe of the liver. Smaller lesions are difficult to accurately characterize. Degenerative changes of the spine. CT/CT chest wo con - High Res IMPRESSION: Interstitial lung disease. The previously identified ground-glass attenuation and denser areas of airspace disease appear improved from November 2021 exam and may have represented acute alveolitis.
== END 2023-02-06 12:46 | disposition home or self-care (01) ==
LOC: HO.CT 12:45
PROVIDERS: PCP Internal Medicine; Visit Provider Internal Medicine
DX: E66.01 Morbid (severe) obesity due to excess calories (principal); J98.4 Other disorders of lung; J84.9 Interstitial pulmonary disease, unspecified
CPT/HCPCS: 71250

== ENCOUNTER → 2023-02-11 12:16 | Outpatient (BNVA) | payer MEDICARE, SELFPAY | PROVIDERS: PCP Internal Medicine; Referring Provider Internal Medicine; Visit Provider Internal Medicine Cardiovascular Disease | DX: I35.0 Nonrheumatic aortic (valve) stenosis (principal); I48.91 Unspecified atrial fibrillation; I50.32 Chronic diastolic (congestive) heart failure; J96.11 Chronic respiratory failure with hypoxia; I48.0 Paroxysmal atrial fibrillation; Z79.01 Long term (current) use of anticoagulants; Z99.81 Dependence on supplemental oxygen; Z45.018 Encounter for adjustment and management of other part of cardiac pacemaker | CPT/HCPCS: 93005; 93280; 99212 ==

== ENCOUNTER → 2023-03-03 12:41 | Outpatient (REF) | payer MEDICARE, SELFPAY ==
--- NOTE | 2023-03-03 12:46 | CA_ITS ---
Transthoracic Echocardiogram Patient (Last, First, Middle): Philip Ramirez P Gender: Male Date of : 1945 Age: 77 Procedure Date: 03/03/2023 Procedure Type: Transthoracic Echocardiogram Location: OP Height: 175.26 cm Weight: 127.01 kg BSA: 2.38 m2 Heart Rate: bpm BP: 130 / 60 mmHg Cook Fish Eggs: ALIZE Referring MD: Jean Kennedy MD Skewer Up: Jean Kennedy MD Symptoms: I35.0 - Nonrheumatic aortic (valve) stenosis Study Quality: Technically Difficult, contrast ECG Rhythm: Sinus Conclusions: - 1. Technically difficult study despite use of contrast agent 2. Normal LV systolic function with grade 2 diastolic dysfunction 3. [id number]-[id number] aortic stenosis 4. Normal calculated RV systolic pressure 5. Upper limits of normal ascending aortic size Findings Procedure Information Contrast agent, definity, is being given per protocol without apparent complications. Left Ventricle Normal left ventricular size and systolic function. The visually estimated ejection fraction is between 60-65%. Spectral Doppler is indicative of a pseudonormal filling pattern. E/E prime ratio is >15, consistent with elevated filling pressures. Evidence suggests grade II (moderate) diastolic dysfunction. Right Ventricle The right ventricle was not well visualized. There is normal right ventricular systolic function. Atria The left atrium was not well visualized. Interatrial shunt cannot be excluded. The right atrium was not well visualized. Aortic Valve The aortic valve was not well visualized. There is mild calcification of the aortic valve. There is mild thickening of the aortic valve. There is mild to moderate aortic valve stenosis. The mean gradient is 19 mmHg. The aortic valve area is 1.50 cm2. There is mild aortic valve regurgitation. Mitral Valve The mitral valve was not well visualized. There is trace mitral valve regurgitation. There is no mitral valve stenosis. Pulmonic Valve The pulmonic valve was not well visualized. Tricuspid Valve The tricuspid valve was not well visualized. The right ventricular systolic pressure is normal. The right ventricular systolic pressure is 20 mmHg. There is no evidence of pulmonary hypertension. Great Vessels The pulmonary artery was not well visualized. Venous The inferior vena cava is normal in size and collapses greater than 50% with inspiration. Pericardium/Pleural The pericardium was not well visualized. Prior Study Comparison No significant change compared to prior study dated: 06/18/2022. Measurements 2D Linear Measurements IVSd: 1.15 0.6-0.9/0.6-1.0 cm LVIDd: 5.46 3.9-5.3/4.2-5.9 cm LVIDd Index: 2.29 2.4-3.2/2.2-3.1 cm/m2 LVIDs: 3.75 2.0-3.6 cm LVPWd: 1.10 0.7-1.1 cm LA Diam: 2.90 2.7-3.8/3.0-4.0 cm LAIDs Index: 1.22 1.5-2.3 cm/m2 LV Mass: 307.36 67-162/88-224 g LV Mass Index: 129.14 43-95/49-115 g/m2 LVOT Diam: 2.40 3.0+(-)1.3 cm 2D Systolic Function EF 4C: 68.00 >55% EF 2C: 58.00 >55% EF BiP: 62.50 >55% Mitral Valve MV Pk E: 1.14 MV PK A: 0.55 MV Decel Time: 180.00 E/A: 2.10 E'Lateral: 10.10 E'Medial: 7.18 E/E' Med: 15.90 E/E' Lat: 11.30 PHT: 53.00 MVA PHT: 4.15 Decel [place]: 6.32 Aortic Valve AoV Pk Andrew: 2.91 AoV Mn Andrew: 2.04 AoV VTI: 0.58 AoV Pk Grad: 34.00 Aov Mn Grad: 19.00 TAD Cont.VTI: 1.50 AI Pk Andrew: 3.51 AI [place]: 1.71 LVOT LVOT Pk Andrew: 1.02 LVOT Mn Andrew: 0.69 LVOT VTI: 0.19 LVOT Pk Grad: 4.00 LVOT Mn Grad: 2.00 LVOT Diam: 2.40 LVOT Area: 4.52 Diastolic Function MV Pk E: 1.14 MV Pk A: 0.55 E/A: 2.10 E'Medial: 7.18 E/E' Med: 15.90 E' Laterial: 10.10 E/E' Lat: 11.30 Right Ventricle TAPSE (mm): 18.00 TVS' Andrew: 9.46 Tricuspid Valve TR Pk Andrew: 2.09 TR Pk Grad: 17.00 RA Press: 3.00 RVSP: 20.00 Great Vessels Aorta Sinus of Valsalva: 4.00 2.0-3.5 cm Ao Asc: 3.50 2.1-3.4 cm Pulmonary Valve PV Pk Andrew: 1.00 Peak PV Grad: 4.00 Updated in Other Vendor System with Status of Final Jean Kennedy MD electronically signed on 03/04/2023 10:57:29 AM with status of Final
== END ==
LOC: HO.CARD 12:41
PROVIDERS: Visit Provider Internal Medicine Cardiovascular Disease
DX: I35.0 Nonrheumatic aortic (valve) stenosis (principal)
CPT/HCPCS: 93306; Q9957

== ENCOUNTER → 2023-03-05 13:15 | Outpatient (BNVA) | payer MEDICARE, SELFPAY | PROVIDERS: PCP Internal Medicine; Visit Provider Internal Medicine | DX: J84.9 Interstitial pulmonary disease, unspecified (principal); J98.4 Other disorders of lung; J84.10 Pulmonary fibrosis, unspecified; J44.9 Chronic obstructive pulmonary disease, unspecified; R09.02 Hypoxemia; Z95.0 Presence of cardiac pacemaker; Z99.81 Dependence on supplemental oxygen | CPT/HCPCS: 99212 ==

== ENCOUNTER 2023-05-20 13:02 | Outpatient (AMB) | payer MEDICARE, SELFPAY ==
--- NOTE | 2023-05-20 13:18 | MHC.OFFVIS ---
Intake Vital Signs 05/20/23 13:19 Height 5 ft 9 in Weight 262 lb BMI 38.7 BMI Reason not done Patient refused/unable BP 100/62 Blood Pressure Location Rt brachial Position Sitting Pulse 63 Pulse Source Pulse Oximeter Pulse Oximetry (%) 96 Oxygen Delivery Method Nasal Cannula Oxygen Flow Rate 3 Intake Visit Reasons: copd Intake Note: pt is here for follow up and states he cannot do anything anymore, even sitting he will feel short, with exertion he pushes O2 to 4. pt states he is coughing a lot, and he just feels terrible. Drying Rack Changer Required: No Allergies No Known Allergies [No Known Allergies*] Allergy (Verified 05/20/23 13:46) Medication List - Last Reconciled 05/20/23 by Marsha Rosales MD albuterol sulfate 90 mcg/actuation 2 puffs inhalation Q4-6H PRN allopurinol 200 mg PO BEDTIME atorvastatin 20 mg PO DAILY bumetanide 1 mg See Protocol PO DAILY mheobylckn-qhtdlaqoqesab-teem 50-325-40 mg 1 tab PO Q6H PRN cholecalciferol (vitamin D3) 25 mcg PO DAILY commode (bedside commode) As directed ipratropium-albuterol 0.5 mg-3 mg(2.5 mg base)/3 mL 3 mL inhalation Q4-6H PRN 30 days metoprolol succinate ER 50 mg PO DAILY omega 9-wrc-lne-fish oil 1,200 (144-216) mg (Fish Oil) 1 cap PO DAILY rivaroxaban (Xarelto) 20 mg PO DAILY Spiriva Respimat 2.5 mcg/actuation (tiotropium bromide) 2 puffs PO DAILY NS walker (Ultra-Light Rollator misc) As directed Do you need a note to return to daycare/school/sports/work: No HPI copd HPI Details This 77 years old gentleman, a case, of morbid obesity ,S/P COVID pneumonia, with residual pulmonary fibrosis, COPD, and ongoing respiratory failure, Comes aft. No wheezing at set er 2 months for follow-up. His main complaint is marked generalized weakness, he has been losing weight, but still remains. morbidly obese He is not able to function much, and stays mostly in the wheelchair. He has very frequent cough and gets tired after the bouts of cough, He has to [place] up his oxygen to 4 L/minute sometimes, using O2 24 hours a day. Yet he has had no fever or chills, and no wheezing. I see in the mcTEL system that he has not had any complete lab since September of this year. [facility] Medical History Aortic stenosis Atrial fibrillation with slow ventricular response CHF (congestive heart failure) Chronic heart failure with preserved ejection fraction (HFpEF) Chronic hyponatremia CKD (chronic kidney disease) COPD (chronic obstructive pulmonary disease) COPD (chronic obstructive pulmonary disease) Fatigue First degree AV block HTN (hypertension) Hypoxemia Hypoxemia requiring supplemental oxygen Interstitial lung disease IPF (idiopathic pulmonary fibrosis) Morbid obesity Morbid obesity Pacemaker (~2021) Paroxysmal atrial fibrillation Pulmonary fibrosis Restrictive lung disease Restrictive lung disease Surgical History History of pacemaker (~2021) History of surgery on wrist Family History Father Cancer Mother Dementia Social History Household Members: Spouse Housing: House Do you presently have visiting nurse or other home services: No Alcohol intake: never Patient Tobacco Use Status: Never used Tobacco Advance Directives Date on File: 06/08/21 service: No Current occupational status: retired Review of Systems Const All systems reviewed & are unremarkable except as noted in HPI and below Eyes Reports no additional complaints ENT Reports no additional complaints Card Denies chest pain, Reports irregular heart rhythm, Reports leg edema (bilateral ) and Reports dyspnea on exertion Resp Reports as per HPI and Reports dyspnea on exertion GI Reports no additional complaints Reports no additional complaints Musc Reports abnormal gait (Patient is non ambulatory, uses wide wheelchair) and Reports back pain Skin/Breast Reports system reviewed and no additional complaints, except as documented Neuro Reports abnormal gait (Patient is non ambulatory, uses wide wheelchair) Psych Reports no additional complaints Physical Exam Vital Signs: Last Vital Signs Pulse 63 05/20/23 13:19 BP 100/62 05/20/23 13:19 Pulse Ox 96 05/20/23 13:19 Oxygen Delivery Method Nasal Cannula 05/20/23 13:19 Oxygen Flow Rate 3 05/20/23 13:19 BMI result Body Mass Index 38.7 Const General: no acute distress (But short of breath during conversation), alert and awake Orientation/consciousness: patient oriented x3 HEENT Head: Yes normal to inspection General nose exam: No nasal polyps present and No nasal discharge present Face and sinus: Yes sinuses nontender Mouth: oropharynx normal Teeth and gingiva: other (THROAT IS NARROW, BUT THERE IS NO EVIDENCE OF INFECTION AND ALSO NO THRUSH.) Throat: Yes posterior oropharynx normal Eyes General: appearance normal, both eyes and all related structures Neck Neck: Yes normal visual inspection, Yes no lymphadenopathy, Yes trachea midline and Yes no JVD Thyroid: Thyroid normal Chest Chest palpation & inspection: normal inspection of the chest, normal palpation of entire chest wall and no tenderness Resp Other: Percussion note not perceptible over the lower have some of the chest. Breath sounds are slightly decreased over both lower lobes. No wheezes , A few creps over thw bases. Cardio Palpation: normal PMI Rate: regular rate Rhythm: abnormal rhythm (Atrial fibrillation) Heart sounds: no gallops and no murmurs GI Palpation (GI): Soft to palpation, nontender, No hepatosplenomegaly present, no masses and Other GI palpation findings present (Abdomen is extremely obese and protuberant) Auscultation: normal bowel sounds Back/Spine/Pelvis Thoracic/Lumbar Spine: thoracic and lumbar spine normal to inspection and thoraco-lumbar ROM limited Skin General skin exam: no rashes or lesions noted and induration (Left leg) Neuro General: patient oriented x3, No gait normal (Non ambulatory) and no focal motor deficits Cranial nerves: Yes CN's II-XII intact bilaterally Extrem General: Yes normal to inspection, Yes no calf tenderness, Yes edema (only minimal edema of legs ) and Yes venous stasis dermatitis (of both legs ) Psych Appearance: grossly normal Speech and movement: Normal speech and movement present Office Procedures Nebulizer Teach Details: Philip and his were educated on the proper use and cleaning of the nebulizer, they state they have no questions at this time. [id number] - Nebulizer Teach Assessment & Plan Assessment & Plan (1) COPD (chronic obstructive pulmonary disease): Comment: PER PULMONARY FUNCTION TEST HE DOES NOT HAVE ANY SIGNIFICANT OBSTRUCTIVE DISORDER, BUT CLINICALLY HE HAS FREQUENT AND SHORTNESS OF BREATH, WHICH ARE CONTROLLED WITH SPIRIVA RESPIMAT 2 INH DAILY . SINCE THE START OF SUMMER HE IS HAVING INCREASED CONGESTED FEELING IN THE CHEST ESPECIALLY IN THE UPPER AIRWAYS. ON EXAMINATION HIS UPPER AIRWAYS ARE NARROW, BUT I DID NOT SEE ANY ACUTE INFECTION. PLAN : I THINK HE WILL BENEFIT FROM THE USE OF DUONEB UPDRAFTS. SO WE HAVE PROVIDED HIM A NEBULIZER UNIT FROM THE OFFICE, AND I HAVE PRESCRIBED DUONEB SOLUTION, ADVISED TO USE THE NEBULIZER WITH DUONEB SOLUTION Q 6 HOURS P.R.N., TWICE A DAY. ALSO MAY USE MUCINEX SYRUP OR THE TABLET 400 MG B.I.D.. CONTINUE USING SPIRIVA R ESPIMAT IS 2.5 2 INHALATIONS DAILY. Code(s): J44.9 - Chronic obstructive pulmonary disease, unspecified (2) Hypoxemia requiring supplemental oxygen: Comment: PATIENT HAS HYPOXEMIA SECONDARY TO RESTRICTIVE PULMONARY DISORDER AND ILD. HE IS DOING WELL WITH OXYGEN 3 L/MT WHICH HE NEEDS CONTINUOUSLY. TESTED PREVIOUSLY HE HAS NOT QUALIFIED FOR OXYGEN CONSERVING UNIT. AT PRESENT HE USES A STATIONARY CONCENTRATOR AT HIS WORK PLACE ( GIVEN TO HIM BY 1 OF HIS FRIENDS ) AND HE USES HIS REGULAR CONCENTRATOR AT HOME, HE DOES HAVE LIGHTWEIGHT CYLINDERS WHICH HE CAN CARRY EASILY. Code(s): R09.02 - Hypoxemia; Z99.81 - Dependence on supplemental oxygen (3) Restrictive lung disease: Comment: Clinically he has significant restrictive pulmonary disorder due to his morbid obesity, And pulmonary fibrosis is in the lower lobes. ADVISED TO DO DEEP BREATHING EXERCISES WITH THE INCENTIVE SPIROMETER 3 TIMES A DAY REGULARLY. Code(s): J98.4 - Other disorders of lung (4) Interstitial lung disease: Comment: , PER RECENT CT SCAN OF THE CHEST HE HAS RESIDUAL PULMONARY FIBROSIS IN BOTH LOWER LOBES, GROUND-GLASS DENSITIES SECONDARY TO ALVEOLITIS HAVE ALMOST RESOLVED. HE STILL CONTINUES TO HAVE SIGNIFICANT COUGH, CONGESTED FEELING AND DYSPNEA. SO HE IS TO CONTINUE OXYGEN, 3-4 L/MINUTE, DUONEB UPDRAFTS ADDED. Code(s): J84.9 - Interstitial pulmonary disease, unspecified (5) Fatigue: Comment: TODAY HIS MAIN COMPLAINT IS MARKED GENERALIZED WEAKNESS AND FEELS SHORT OF BREATH AND EXHAUSTED ON DOING ANY PHYSICAL WORK. I HAVE ORDERED COMPLETE METABOLIC PANEL AND T4 TSH LEVEL, TO CHECK FOR ANY METABOLIC ABNORMALITIES. I HAVE ALSO ORDERED VENOUS BLOOD GAS STUDY. Code(s): R53.83 - Other fatigue Orders: Orders Basic Metabolic Panel Today J44.9 - Chronic obstructive pulmonary disease, unspecified, J84.9 - Interstitial pulmonary disease, unspecified, J98.4 - Other disorders of lung, R09.02 - Hypoxemia, R53.83 - Other fatigue, Z99.81 - Dependence on supplemental oxygen TSH reflex Free T4 Today J44.9 - Chronic obstructive pulmonary disease, unspecified, R53.83 - Other fatigue Complete Blood Count Auto Diff Today J44.9 - Chronic obstructive pulmonary disease, unspecified, R53.83 - Other fatigue Venous Blood Gases - POC Today J44.9 - Chronic obstructive pulmonary disease, unspecified, R09.02 - Hypoxemia, Z99.81 - Dependence on supplemental oxygen AMB Nebulizer Teach Today J44.9 - Chronic obstructive pulmonary disease, unspecified Medications: New ipratropium-albuterol 0.5 mg-3 mg(2.5 mg base)/3 mL 3 mL inhalation Q4-6H 30 days PRN 180 mL 3RF wheezing Coding Level of Care Code Est Pt Level 4 (04259) Diagnoses COPD (chronic obstructive pulmonary disease) J44.9 Hypoxemia requiring supplemental oxygen R09.02; Z99.81 Restrictive lung disease J98.4 Interstitial lung disease J84.9 Fatigue R53.83 CPT Codes Nebulizer Teach - Nebulizer Teach: [id number] - Nebulizer Teach ([id number])
[2023-05-20 13:19] VITALS: BP 100/62; PULSE 63; O2SAT 96; BMI 38.7
== END 2023-05-20 13:53 | disposition home or self-care (01) ==
PROVIDERS: PCP Internal Medicine; Visit Provider Internal Medicine
DX: J44.9 Chronic obstructive pulmonary disease, unspecified (principal); R09.02 Hypoxemia; Z99.81 Dependence on supplemental oxygen; J98.4 Other disorders of lung; J84.9 Interstitial pulmonary disease, unspecified; R53.83 Other fatigue
CPT/HCPCS: 99214

== ENCOUNTER 2023-05-20 13:02 | Outpatient (REF) | payer MEDICARE, SELFPAY ==
[2023-05-20 14:07] LABS: MANUAL DIFF FLAG NO
[2023-05-20 15:41] LABS: Basophils Percent Auto 0.3 % (0-2); Eosinophils Absolute Auto 0.1 X10*3/uL (0.0-0.4); Eosinophils Percent Auto 1.2 % (0-4); Hematocrit 34.4 % (42.0-52.0); Hemoglobin 11.2 g/dl (14.0-18.0); Imm Gran Abs Auto 0.07 X10*3/uL (0.00-0.03); Imm Gran Pct Auto 0.6 % (0.0-0.4); Lymphocytes Absolute Auto 1.2 X10*3/uL (1.2-4.9); Lymphocytes Percent Auto 10.6 % (20-40); Mean Corpuscular HGB Conc 32.6 g/dl (31.0-36.0); Mean Corpuscular Hemoglobin 32.6 pg (27.0-33.0); Mean Platelet Volume 10.2 fL (9.4-12.4); Monocytes Absolute Auto 0.8 X10*3/uL (0.1-1.2); Monocytes Percent Auto 6.8 % (2-11); Neutrophils Absolute Auto 9.2 x10*3/uL (2.0-8.3); Neutrophils Percent Auto 80.5 % (45-73); Platelet Count 255 X10*3/uL (160-400); Red Blood Count 3.44 X10*6/uL (4.60-5.80); Red Cell Distribution Width 14.7 % (11.0-16.0); White Blood Count 11.4 X10*3/uL (4.8-10.8)
[2023-05-20 16:40] LABS: Anion Gap 11 (12-20); Blood Urea Nitrogen 23 mg/dL (9-16); Calcium 10.5 mg/dL (8.4-10.2); Carbon Dioxide 42 mmol/L (22-29); Chloride 81 mmol/L (96-108); Estimated Glomerular Filt Rate > 60; Glucose Random 107 mg/dL (60-115); Potassium 3.7 mmol/L (3.3-5.1); Sodium 130 mmol/L (135-145)
[2023-05-20 16:49] LABS: TSH reflex Free T4 1.42 uIU/mL (0.32-4.0)
== END 2023-05-20 13:03 | disposition home or self-care (01) ==
LOC: HO.LAB 13:02
PROVIDERS: PCP Internal Medicine; Visit Provider Internal Medicine
DX: J44.9 Chronic obstructive pulmonary disease, unspecified (principal); E66.01 Morbid (severe) obesity due to excess calories; R09.02 Hypoxemia; J98.4 Other disorders of lung; J84.9 Interstitial pulmonary disease, unspecified; R53.83 Other fatigue; J84.10 Pulmonary fibrosis, unspecified; U09.9 Post COVID-19 condition, unspecified; Z99.81 Dependence on supplemental oxygen; Z79.899 Other long term (current) drug therapy
CPT/HCPCS: 36415; 80048; 84443; 85025; 94664; 99212

== ENCOUNTER 2023-05-21 13:42 | Outpatient (AMB) | payer MEDICARE, SELFPAY ==
--- NOTE | 2023-05-21 13:52 | A.OFFVIS_ITS ---
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 Patient reprts pain has been present for about a year with his right hand being the worse. He has difficulty with gripping and pinching making it difficult to writing, twisting caps off bottles and frequently dropping items. He has locking and catching in all his fingers of right hand but maily his IF. NO previous tx. 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 He states he has weakness, stiffness, numbness and tingling in his bilateral hands which is worse on his right than his left hand. His pain is aggravated with writing, putting on his shirts, twisting caps off bottles, gripping and pinching movements and frequently drops items. He also c/o locking and catching in all his fingers of the right hand mainly in his index finger. He has not had any treatment in the past. He has a history of gout and atrial fibrillation. [facility] Medical History (Updated 05/21/23 @ 14:29 by Gunnar De La Torre) Aortic stenosis Atrial fibrillation with slow ventricular response CHF (congestive heart failure) Chronic heart failure with preserved ejection fraction (HFpEF) Chronic hyponatremia CKD (chronic kidney disease) COPD (chronic obstructive pulmonary disease) COPD (chronic obstructive pulmonary disease) Fatigue First degree AV block HTN (hypertension) Hypoxemia Hypoxemia requiring supplemental oxygen Interstitial lung disease IPF (idiopathic pulmonary fibrosis) Morbid obesity Morbid obesity Pacemaker (~2021) Paroxysmal atrial fibrillation Pulmonary fibrosis Restrictive lung disease Restrictive lung disease Surgical History (Updated 05/21/23 @ 14:01 by Sahara Daniel Danny) History of pacemaker (~2021) History of surgery on wrist Family History Father Cancer Mother Dementia Social History Household Members: Spouse Housing: House Do you presently have visiting nurse or other home services: No Alcohol intake: never Patient Tobacco Use Status: Never used Tobacco Advance Directives Date on File: 06/08/21 service: No Current occupational status: retired Review of Systems Const All systems reviewed & are unremarkable except as noted in HPI and below Physical Exam Vital Signs: BMI result Body Mass Index 38.7 Const General: cooperative, healthy appearing, comfortable, no acute distress, well developed and alert Orientation/consciousness: patient oriented x3 HEENT Head: Yes normal to inspection, Yes normocephalic and Yes atraumatic Eyes General: appearance normal, both eyes and all related structures Resp Effort & Inspection: normal respiratory effort and able to speak in complete sentences Cardio Rate: regular rate Peripheral pulses: Peripheral pulses 2+ throughout GI Palpation (GI): Soft to palpation Skin Lesions: no lesions Rashes: no rashes Neuro General: patient oriented x3 Extrem Other: Right hand: Normal to inspection. No effusion, no abrasion and no fracture contracture. He can fully extend all digits and he can bring his hand to closed fist without any catching or locking. He does have some tenderness along the A1 patricia of the index finger but there is no catching or locking. There is evidence of Heberden?s along the DIP joint of the right hand. He has thenar wasting. Negative Tinel?s. NVI. Left hand: Normal to inspection. He does have a scar present along the radial aspect of the wrist which extends in to thenar eminence of the hand. He can make a full fist and extend all digits but he is unable to abduct all digits. No catching or locking. Thenar wasting is present. Negative Tinel?s. Pulses are intact. Assessment & Plan Assessment & Plan (1) Osteoarthritis of hands, bilateral: Code(s): M19.041 - Primary osteoarthritis, right hand; M19.042 - Primary osteoarthritis, left hand Plan Patient has multiple comorbidities which prevents him from taking multiple medications such as anti-inflammatories. In that case I do recommend he continue taking Tylenol for symptomatic treatment and I encouraged him to continue with some hand exercises which I did demonstrate in the office today. I did offer him a formal therapy for occupational therapy which he deferred at this time. If symptoms persist or worsens, patient will contact the office, otherwise follow- up as needed. Patient Instructions: Scribed for Ta-Madai Meuse, PA-C, by Gunnar De La Torre medical genetics director, on 05/21/2023 at 2:00 PM JERMAINE. ISandy PA-C, have personally reviewed and agree with the information entered by the scribe. Coding Level of Care Code New Pt Level 3 (51060) Diagnoses Osteoarthritis of hands, bilateral M19.041; M19.042
[2023-05-21 13:53] VITALS: BMI 38.7
== END 2023-05-21 14:28 | disposition home or self-care (01) ==
PROVIDERS: PCP Internal Medicine; Visit Provider Physician Assistant
DX: M19.041 Primary osteoarthritis, right hand (principal); M19.042 Primary osteoarthritis, left hand
CPT/HCPCS: 99203

== ENCOUNTER → 2023-05-21 13:42 | Outpatient (BNVA) | payer MEDICARE, SELFPAY | PROVIDERS: PCP Internal Medicine; Visit Provider Physician Assistant | DX: M19.041 Primary osteoarthritis, right hand (principal); M19.042 Primary osteoarthritis, left hand | CPT/HCPCS: 99202 ==

== ENCOUNTER → 2023-06-05 23:59 | Outpatient (BNV) | payer MEDICARE, SELFPAY ==
--- NOTE | 2023-06-05 11:18 | MHC.OFFVIS ---
Intake Intake Visit Reasons: Remote Device Check- [facility] Allergies No Known Allergies [No Known Allergies*] Allergy (Verified 05/21/23 14:00) [facility] Medical History (Updated 05/21/23 @ 14:29 by Gunnar De La Torre) Fatigue COPD (chronic obstructive pulmonary disease) Hypoxemia requiring supplemental oxygen Restrictive lung disease Morbid obesity Chronic heart failure with preserved ejection fraction (HFpEF) Interstitial lung disease Pacemaker (~2021) Pulmonary fibrosis First degree AV block Chronic hyponatremia CHF (congestive heart failure) Atrial fibrillation with slow ventricular response COPD (chronic obstructive pulmonary disease) Restrictive lung disease Hypoxemia Morbid obesity IPF (idiopathic pulmonary fibrosis) Aortic stenosis Paroxysmal atrial fibrillation CKD (chronic kidney disease) HTN (hypertension) Surgical History (Updated 05/21/23 @ 14:01 by Sahara Daniel [facility]) History of pacemaker (~2021) History of surgery on wrist Family History Father Cancer Mother Dementia Social History Household Members: Spouse Housing: House Do you presently have visiting nurse or other home services: No Alcohol intake: never Patient Tobacco Use Status: Never used Tobacco Advance Directives Date on File: 06/08/21 service: No Current occupational status: retired Office Procedures Cardiac Device Check Cardiac Device Check Details: Remote pacemaker report generated 06/05/2023. Pacemaker function is adequate. Increasing burden of atrial fibrillation noted [id number] Cardiac Device Interrogation, pacemaker Procedure code (CPT) selection complete Coding Level of Care Code Procedure Only CPT Codes Cardiac Device Check - Cardiac Device 12: [id number] Cardiac Device Interrogation, pacemaker ([id number])
== END ==
PROVIDERS: PCP Internal Medicine; Visit Provider Internal Medicine Cardiovascular Disease
DX: I48.0 Paroxysmal atrial fibrillation (principal); Z95.0 Presence of cardiac pacemaker
CPT/HCPCS: 93294

== ENCOUNTER 2023-07-14 13:28 | Outpatient (AMB) | payer MEDICARE, SELFPAY ==
--- NOTE | 2023-07-14 13:32 | A.OFFVIS_ITS ---
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: No Allergies No Known Allergies [No Known Allergies*] Allergy (Verified 07/14/23 13:43) Medication List - Last Reconciled 07/14/23 by Marsha Rosales MD albuterol sulfate 90 mcg/actuation 2 puffs inhalation Q4-6H PRN allopurinol 200 mg PO BEDTIME atorvastatin 20 mg PO DAILY bumetanide 1 mg See Protocol PO DAILY snekyyygny-ifkmmicjiqwdo-vwbg 50-325-40 mg 1 tab PO Q6H PRN cholecalciferol (vitamin D3) 25 mcg PO DAILY commode (bedside commode) As directed ipratropium-albuterol 0.5 mg-3 mg(2.5 mg base)/3 mL 3 mL inhalation Q4-6H PRN 30 days metoprolol succinate ER 50 mg PO DAILY omega 0-rpq-mib-fish oil 1,200 (144-216) mg (Fish Oil) 1 cap PO DAILY rivaroxaban (Xarelto) 20 mg PO DAILY Spiriva Respimat 2.5 mcg/actuation (tiotropium bromide) 2 puffs PO DAILY NS walker (Ultra-Light Rollator misc) As directed Do you need a note to return to daycare/school/sports/work: No HPI copd HPI Details 78 years old gentleman, comes for short- term follow-up. Since his last visit he used DuoNeb updraft only once and says that it made him kind of choke. Then he went to ENT physician who checked his throat or and there was no throat cancer, but he treated him empirically with antibiotic which has helped and cleared his throat. Philip continues to lose weight and I think this is due to continued diuresis. His lap tests did show borderline hyponatremia , hypochloremia and elevated HCO3 which I think is due to diuretic therapy. Overall his breathing is better and he does not feel as congested. His main problem is that he still were very weak and gets short of breath on any exertion. As long as he is sitting in his wheelchair or recliner there is not much shortness of breath. [facility] Medical History Fatigue COPD (chronic obstructive pulmonary disease) Hypoxemia requiring supplemental oxygen Restrictive lung disease Morbid obesity Chronic heart failure with preserved ejection fraction (HFpEF) Interstitial lung disease Pacemaker (~2021) Pulmonary fibrosis First degree AV block Chronic hyponatremia CHF (congestive heart failure) Atrial fibrillation with slow ventricular response COPD (chronic obstructive pulmonary disease) Restrictive lung disease Hypoxemia Morbid obesity IPF (idiopathic pulmonary fibrosis) Aortic stenosis Paroxysmal atrial fibrillation CKD (chronic kidney disease) HTN (hypertension) Surgical History History of pacemaker (~2021) History of surgery on wrist Family History Father Cancer Mother Dementia Social History Household Members: Spouse Housing: House Do you presently have visiting nurse or other home services: No Alcohol intake: never Patient Tobacco Use Status: Never used Tobacco Advance Directives Date on File: 06/08/21 service: No Current occupational status: retired Review of Systems Const All systems reviewed & are unremarkable except as noted in HPI and below Eyes Reports no additional complaints ENT Reports no additional complaints Card Denies chest pain, Reports irregular heart rhythm, Reports leg edema (bilateral ) and Reports dyspnea on exertion Resp Reports as per HPI and Reports dyspnea on exertion GI Reports no additional complaints Reports no additional complaints Musc Reports abnormal gait (Patient is non ambulatory, uses wide wheelchair) and Reports back pain Skin/Breast Reports system reviewed and no additional complaints, except as documented Neuro Reports abnormal gait (Patient is non ambulatory, uses wide wheelchair) Psych Reports no additional complaints Physical Exam Vital Signs: Last Vital Signs Pulse 74 07/14/23 13:36 BP 110/64 07/14/23 13:36 Pulse Ox 97 07/14/23 13:36 Oxygen Delivery Method Room Air 07/14/23 13:36 BMI result Body Mass Index 37.1 Const General: no acute distress (But short of breath during conversation), alert and awake Orientation/consciousness: patient oriented x3 HEENT Head: Yes normal to inspection General nose exam: No nasal polyps present and No nasal discharge present Face and sinus: Yes sinuses nontender Mouth: oropharynx normal Teeth and gingiva: other (THROAT IS NARROW, BUT THERE IS NO EVIDENCE OF INFECTION AND ALSO NO THRUSH.) Throat: Yes posterior oropharynx normal Eyes General: appearance normal, both eyes and all related structures Neck Neck: Yes normal visual inspection, Yes no lymphadenopathy, Yes trachea midline and Yes no JVD Thyroid: Thyroid normal Chest Chest palpation & inspection: normal inspection of the chest, normal palpation of entire chest wall and no tenderness Resp Other: Percussion note not perceptible over the lower have some of the chest. Breath sounds are slightly decreased over both lower lobes. No wheezes or creps are heard . Cardio Palpation: normal PMI Rate: regular rate Rhythm: abnormal rhythm (Atrial fibrillation) Heart sounds: no gallops and no murmurs GI Palpation (GI): Soft to palpation, nontender, No hepatosplenomegaly present, no masses and Other GI palpation findings present (Abdomen is extremely obese and protuberant) Auscultation: normal bowel sounds Back/Spine/Pelvis Thoracic/Lumbar Spine: thoracic and lumbar spine normal to inspection and thoraco-lumbar ROM limited Skin General skin exam: no rashes or lesions noted and induration (Left leg) Neuro General: patient oriented x3, No gait normal (Non ambulatory) and no focal motor deficits Cranial nerves: Yes CN's II-XII intact bilaterally Extrem General: Yes normal to inspection, Yes no calf tenderness, Yes edema (only minimal edema of legs ) and Yes venous stasis dermatitis (of both legs ) Psych Appearance: grossly normal Speech and movement: Normal speech and movement present Assessment & Plan Assessment & Plan (1) COPD (chronic obstructive pulmonary disease): Comment: PER PULMONARY FUNCTION TEST HE DOES NOT HAVE ANY SIGNIFICANT OBSTRUCTIVE DISORDER, BUT CLINICALLY HE HAS FREQUENT AND SHORTNESS OF BREATH, WHICH ARE CONTROLLED WITH SPIRIVA RESPIMAT 2 INH DAILY . HIS FEELING OF CHEST CONGESTION HAS IMPROVED. PROBABLY DUE TO THE COURSE OF ANTIBIOTIC THAT HE GOT. FROM ENT PHYSICIAN PLAN : CONTINUE SPIRIVA RESPIMAT 2 INHALATIONS DAILY. USE DUONEB UPDRAFT Q 4-6 HOURS ONLY P.R.N. IF FEELS CONGESTED. Code(s): J44.9 - Chronic obstructive pulmonary disease, unspecified (2) Restrictive lung disease: Comment: Clinically he has significant restrictive pulmonary disorder due to his morbid obesity, And pulmonary fibrosis is in the lower lobes. ADVISED TO DO DEEP BREATHING EXERCISES WITH THE INCENTIVE SPIROMETER 3 TIMES A DAY REGULARLY. Code(s): J98.4 - Other disorders of lung (3) Hypoxemia requiring supplemental oxygen: Comment: PATIENT HAS HYPOXEMIA SECONDARY TO RESTRICTIVE PULMONARY DISORDER AND ILD. HE IS DOING WELL WITH OXYGEN 3 L/MT WHICH HE NEEDS CONTINUOUSLY. TESTED PREVIOUSLY HE HAS NOT QUALIFIED FOR OXYGEN CONSERVING UNIT. AT PRESENT HE USES A STATIONARY CONCENTRATOR AT HIS WORK PLACE ( GIVEN TO HIM BY 1 OF HIS FRIENDS ) AND HE USES HIS REGULAR CONCENTRATOR AT HOME, HE DOES HAVE LIGHTWEIGHT CYLINDERS WHICH HE CAN CARRY EASILY. Code(s): R09.02 - Hypoxemia; Z99.81 - Dependence on supplemental oxygen (4) Morbid obesity: Comment: This gentleman is morbidly obese, especially with abdominal and truncal obesity. He denies symptoms of obstructive sleep apnea. Weight reduction discussed . As noted on previous visits for practical purposes it is very difficult for him to lose weight. Code(s): E66.01 - Morbid (severe) obesity due to excess calories (5) Chronic heart failure with preserved ejection fraction (HFpEF): Comment: IS ASSOCIATED PROBLEM IS CHRONIC CONGESTIVE HEART FAILURE WHICH IS BEING TREATED WITH DIURETIC THERAPY. HE DID HAVE BORDERLINE HYPONATREMIA, HYPOCHLOREMIA , . AND ALKALOSIS PROBABLY RELATED TO DIURETIC THERAPY. I HAVE URGED HIM TO MAKE APPOINTMENT TO BE SEEN BY THE CARDIOLOGY SERVICE SOON POSSIBLE. I HAVE ALSO URGED HIM TO MAKE REGULAR APPOINTMENTS TO BE SEEN BY PRIMARY. CARE PHYSICIAN Code(s): I50.32 - Chronic diastolic (congestive) heart failure (6) Interstitial lung disease: Comment: , PER RECENT CT SCAN OF THE CHEST HE HAS RESIDUAL PULMONARY FIBROSIS IN BOTH LOWER LOBES, GROUND-GLASS DENSITIES SECONDARY TO ALVEOLITIS HAVE ALMOST RESOLVED. HE STILL CONTINUES TO HAVE SIGNIFICANT COUGH, CONGESTED FEELING AND DYSPNEA. SO HE IS TO CONTINUE OXYGEN, 3-4 L/MINUTE, RAHUL JEAN ADDED. Code(s): J84.9 - Interstitial pulmonary disease, unspecified (7) Fatigue: Comment: TODAY HIS MAIN COMPLAINT IS MARKED GENERALIZED WEAKNESS AND FEELS SHORT OF BREATH AND EXHAUSTED ON DOING ANY PHYSICAL WORK. THIS IS DUE TO COMBINATION OF ALL THE ABOVE NOTED PROBLEMS. Code(s): R53.83 - Other fatigue Coding Level of Care Code Est Pt Level 4 (75785) Diagnoses COPD (chronic obstructive pulmonary disease) J44.9 Restrictive lung disease J98.4 Hypoxemia requiring supplemental oxygen R09.02; Z99.81 Morbid obesity E66.01 Chronic heart failure with preserved ejection fraction (HFpEF) I50.32 Interstitial lung disease J84.9 Fatigue R53.83
[2023-07-14 13:36] VITALS: BP 110/64; PULSE 74; O2SAT 97; BMI 37.1
== END 2023-07-14 13:55 | disposition home or self-care (01) ==
PROVIDERS: PCP Internal Medicine; Visit Provider Internal Medicine
DX: J44.9 Chronic obstructive pulmonary disease, unspecified (principal); J98.4 Other disorders of lung; R09.02 Hypoxemia; Z99.81 Dependence on supplemental oxygen; E66.01 Morbid (severe) obesity due to excess calories; I50.32 Chronic diastolic (congestive) heart failure; J84.9 Interstitial pulmonary disease, unspecified; R53.83 Other fatigue
CPT/HCPCS: 99214

== ENCOUNTER → 2023-07-14 13:28 | Outpatient (BNVA) | payer MEDICARE, SELFPAY | PROVIDERS: PCP Internal Medicine; Visit Provider Internal Medicine | DX: J44.9 Chronic obstructive pulmonary disease, unspecified (principal); J98.4 Other disorders of lung; J84.9 Interstitial pulmonary disease, unspecified; R09.02 Hypoxemia; R53.83 Other fatigue; E66.01 Morbid (severe) obesity due to excess calories; Z99.81 Dependence on supplemental oxygen; I50.32 Chronic diastolic (congestive) heart failure; Z68.37 Body mass index [BMI] 37.0-37.9, adult | CPT/HCPCS: 99212 ==

== ENCOUNTER 2023-09-01 13:26 | Outpatient (AMB) | payer MEDICARE, SELFPAY ==
[2023-09-01 13:33] VITALS: BP 130/72; PULSE 78; BMI 37.1
--- NOTE | 2023-09-01 13:33 | A.OFFVIS_ITS ---
Intake Vital Signs 09/01/23 13:33 Height 5 ft 9 in Weight 251 lb BMI 37.1 BP 130/72 Blood Pressure Location Lt radial Position Sitting Pulse 78 Pulse Source Pulse Oximeter Intake Visit Reasons: 6 month f/u w/[facility] am[facility]o Intake Note: 6 mnth f/up w/[facility] Pt its feeling fine Final Inspection Supervisor Required: No Accompanied by: Spouse Allergies No Known Allergies [No Known Allergies*] Allergy (Verified 07/14/23 13:43) Medication List - Last Reconciled 09/01/23 by Jean Kennedy MD albuterol sulfate 90 mcg/actuation 2 puffs inhalation Q4-6H PRN allopurinol 200 mg PO BEDTIME atorvastatin 20 mg PO DAILY bumetanide 1 mg See Protocol PO DAILY xbynczfgho-gaecyxjkxnyoe-jnha 50-325-40 mg 1 tab PO Q6H PRN cholecalciferol (vitamin D3) 25 mcg PO DAILY commode (bedside commode) As directed ipratropium-albuterol 0.5 mg-3 mg(2.5 mg base)/3 mL 3 mL inhalation Q4-6H PRN 30 days metoprolol succinate ER 50 mg PO DAILY omega 8-kiy-wym-fish oil 1,200 (144-216) mg (Fish Oil) 1 cap PO DAILY rivaroxaban (Xarelto) 20 mg PO DAILY Spiriva Respimat 2.5 mcg/actuation (tiotropium bromide) 2 puffs PO DAILY NS walker (Ultra-Light Rollator misc) As directed HPI HPI Comments History of Present Illness Details Philip comes for follow-up. He has very limited amount activity due to shortness of breath and currently moves around with help of her electric scooter except for in the home he walks with a walker. He has no worsening shortness of breath or leg edema. His heart failure syndrome has remained controlled on current bumetanide therapy. He uses oxygen around the clock mostly 3 liters/minute nasal cannula. Without that he is very hypoxic. He denies any clear orthopnea, PND. He denies any prolonged palpitation irregular heartbeat. No bleeding issues or neurologic events. [facility] Medical History (Updated 09/01/23 @ 13:56 by Jean Kennedy MD) Persistent atrial fibrillation Paroxysmal atrial fibrillation Fatigue COPD (chronic obstructive pulmonary disease) Hypoxemia requiring supplemental oxygen Restrictive lung disease Morbid obesity Chronic heart failure with preserved ejection fraction (HFpEF) Interstitial lung disease Pacemaker (~2021) Pulmonary fibrosis First degree AV block Chronic hyponatremia CHF (congestive heart failure) Atrial fibrillation with slow ventricular response COPD (chronic obstructive pulmonary disease) Restrictive lung disease Hypoxemia Morbid obesity IPF (idiopathic pulmonary fibrosis) Aortic stenosis CKD (chronic kidney disease) HTN (hypertension) Surgical History History of pacemaker (~2021) History of surgery on wrist Family History Father Cancer Mother Dementia Social History Household Members: Spouse Housing: House Do you presently have visiting nurse or other home services: No Alcohol intake: never Patient Tobacco Use Status: Never used Tobacco Advance Directives Date on File: 06/08/21 service: No Current occupational status: retired Review of Systems Const Reports chills, Reports fatigue, Reports fever(s), Reports frequent falls, Reports weakness, Reports weight gain and Reports weight loss ENT Reports dizziness Card Reports chest pain, Reports leg edema, Reports lightheadedness, Reports palpitations, Reports dyspnea and Reports dyspnea on exertion Resp Reports cough, Reports dyspnea and Reports dyspnea on exertion GI Reports hematochezia Musc Reports abnormal gait, Reports muscle weakness, Reports numbness, Reports radiating pain into limb and Reports tingling Neuro Reports abnormal gait, Reports dizziness, Reports frequent falls, Reports numbness, Reports tingling and Reports weakness Endo Reports fatigue and Reports palpitations Physical Exam Vital Signs: Last Vital Signs Pulse 78 09/01/23 13:33 BP 130/72 09/01/23 13:33 BMI result Body Mass Index 37.1 Const General: cooperative, comfortable, no acute distress, alert and awake Nutritional Appearance: obese morbidly obese Orientation/consciousness: patient oriented x3 Limitations: wheelchair Neck Neck: Yes trachea midline, Yes supple and Yes no JVD Resp Effort & Inspection: normal respiratory effort Auscultation: clear to auscultation bilaterally and diminished lung sounds Cardio Jugular venous distension: no JVD Palpation: normal PMI Rhythm: abnormal rhythm irregularly irregular Heart sounds: S1 normal heart sound present, S2 normal heart sound present, Murmur heart sound present systolic early and Other heart sounds present (S4 present) GI Inspection: Yes Abdominal panniculus present and Yes obesity Auscultation: normal bowel sounds Skin General skin exam: no rashes or lesions noted and ecchymosis Neuro General: patient oriented x3 and no focal motor deficits Extrem General: No clubbing, No cyanosis, Yes edema and Yes venous stasis dermatitis Psych Appearance: grossly normal Office Procedures Cardiac Device Check Cardiac Device Check Details: Dual-chamber [facility] pacemaker was reprogrammed from DDDR to VVIR for chronic atrial fibrillation. Ventricular pacing thresholds are adequate and reprogrammed to enhance battery life. Ventricular sensing is excellent. Pacing lead impedance is stable. Battery life is adequate. [id number] Cardiac Device Check, pacemaker dual lead Procedure code (CPT) selection complete Assessment & Plan Assessment & Plan (1) Chronic heart failure with preserved ejection fraction (HFpEF): Comment: IS ASSOCIATED PROBLEM IS CHRONIC CONGESTIVE HEART FAILURE WHICH IS BEING TREATED WITH DIURETIC THERAPY. HE DID HAVE BORDERLINE HYPONATREMIA, HYPOCHLOREMIA , . AND ALKALOSIS PROBABLY RELATED TO DIURETIC THERAPY. I HAVE URGED HIM TO MAKE APPOINTMENT TO BE SEEN BY THE CARDIOLOGY SERVICE SOON POSSIBLE. I HAVE ALSO URGED HIM TO MAKE REGULAR APPOINTMENTS TO BE SEEN BY PRIMARY. CARE PHYSICIAN Code(s): I50.32 - Chronic diastolic (congestive) heart failure Plan: Heart failure preserved ejection fraction with predominantly right heart failure syndrome. Clinically appears to be euvolemic. Leg edema is much improved on low-dose bumetanide therapy. I think this is probably related to treatment of his chronic respiratory failure with chronic oxygen therapy to reduce pulmonary vaso constriction improve RV function. Continue current diuretic regimen. Daily weight monitoring avoidance of salt loading was discussed. Continue mobility as tolerated. Continue aggressive blood pressure control which is currently well optimized. (2) Persistent atrial fibrillation: Code(s): I48.19 - Other persistent atrial fibrillation Plan: Persistent chronic atrial fibrillation. Has failed rhythm control approach and is currently of amiodarone therapy given his pulmonary fibrosis. Continue full oral anticoagulation, currently on Xarelto 20 mg daily. Rate is adequately controlled. (3) Pacemaker: Onset Date: ~2021 Comment: ([facility] DCPP - placed 11/2021) Code(s): Z95.0 - Presence of cardiac pacemaker Plan: Cardiac pacemaker in-situ for sick sinus syndrome. Pacemaker is working well. Reprogrammed from DDDR to VVIR. At this point in time continue to monitor remotely and follow up in the clinic in 6 months time. Follow up in the clinic in 6 months time, sooner p.r.n.. Thank you for allowing me to partake in his care Coding Level of Care Code Est Pt Level 4 (50325) Diagnoses Chronic heart failure with preserved ejection fraction (HFpEF) I50.32 Persistent atrial fibrillation I48.19 Pacemaker Z95.0 CPT Codes Cardiac Device Check - Cardiac Device 2: [id number] Cardiac Device Check, pacemaker dual lead ([id number])
== END 2023-09-01 13:55 | disposition home or self-care (01) ==
PROVIDERS: Visit Provider Internal Medicine Cardiovascular Disease
DX: I50.32 Chronic diastolic (congestive) heart failure (principal); I48.19 Other persistent atrial fibrillation; Z95.0 Presence of cardiac pacemaker
CPT/HCPCS: 93280; 99214

== ENCOUNTER → 2023-09-01 13:26 | Outpatient (BNVA) | payer MEDICARE, SELFPAY | PROVIDERS: Visit Provider Internal Medicine Cardiovascular Disease | DX: Z45.018 Encounter for adjustment and management of other part of cardiac pacemaker (principal); I50.32 Chronic diastolic (congestive) heart failure; I48.19 Other persistent atrial fibrillation | CPT/HCPCS: 93280; 99212 ==

== ENCOUNTER → 2023-09-17 23:59 | Outpatient (BNV) | payer MEDICARE, SELFPAY ==
--- NOTE | 2023-09-23 08:25 | A.OFFVIS_ITS ---
Intake Intake Visit Reasons: Remote Device Check- [facility] Allergies No Known Allergies [No Known Allergies*] Allergy (Verified 07/14/23 13:43) [facility] Medical History (Updated 09/01/23 @ 13:56 by Jean Kennedy MD) Persistent atrial fibrillation Paroxysmal atrial fibrillation Fatigue COPD (chronic obstructive pulmonary disease) Hypoxemia requiring supplemental oxygen Restrictive lung disease Morbid obesity Chronic heart failure with preserved ejection fraction (HFpEF) Interstitial lung disease Pacemaker (~2021) Pulmonary fibrosis First degree AV block Chronic hyponatremia CHF (congestive heart failure) Atrial fibrillation with slow ventricular response COPD (chronic obstructive pulmonary disease) Restrictive lung disease Hypoxemia Morbid obesity IPF (idiopathic pulmonary fibrosis) Aortic stenosis CKD (chronic kidney disease) HTN (hypertension) Surgical History History of pacemaker (~2021) History of surgery on wrist Family History Father Cancer Mother Dementia Social History Household Members: Spouse Housing: House Do you presently have visiting nurse or other home services: No Alcohol intake: never Patient Tobacco Use Status: Never used Tobacco Advance Directives Date on File: 06/08/21 service: No Current occupational status: retired Office Procedures Cardiac Device Check Cardiac Device Check Details: Remote pacemaker report generated 09/17/2023. Patient persistent atrial fibrillation. We pacing 33% of time. Pacemaker function is otherwise adequate [id number] Cardiac Device Interrogation, pacemaker Procedure code (CPT) selection complete Assessment & Plan Assessment & Plan (1) Pacemaker: Onset Date: ~2021 Comment: ([facility] DCPP - placed 11/2021) Code(s): Z95.0 - Presence of cardiac pacemaker Plan: See above Coding Level of Care Code Procedure Only Diagnoses Pacemaker Z95.0 CPT Codes Cardiac Device Check - Cardiac Device 12: [id number] Cardiac Device Interrogation, pacemaker ([id number])
== END ==
PROVIDERS: PCP Internal Medicine; Visit Provider Internal Medicine Cardiovascular Disease
DX: I48.19 Other persistent atrial fibrillation (principal); Z95.0 Presence of cardiac pacemaker
CPT/HCPCS: 93294

== ENCOUNTER 2023-10-13 13:41 | Outpatient (AMB) | payer MEDICARE, SELFPAY ==
--- NOTE | 2023-10-13 13:44 | MHC.OFFVIS ---
Intake Vital Signs 10/13/23 13:45 Height 5 ft 9 in Weight 251 lb BMI 37.1 BP 120/70 Blood Pressure Location Lt brachial Pulse 91 Pulse Source Pulse Oximeter Pulse Oximetry (%) 97 Oxygen Delivery Method Nasal Cannula Oxygen Flow Rate 2 Intake Visit Reasons: copd Intake Note: pt is here for follow up and states he is about the same. Certified Diabetes Educator Required: No Allergies No Known Allergies [No Known Allergies*] Allergy (Verified 10/13/23 13:51) Do you need a note to return to daycare/school/sports/work: No HPI copd HPI Details Philip is 78 years old gentleman, who is grossly obese, with marked impairment of his locomotion. He does have a motorized scooter at home but does not bring it out in the snow season. He uses a wide base chair , when he comes outdoors. Breathing has been stable with mild to moderate intermittent cough. Luckily he has had no respiratory infection because he does not get outdoors. He is using Spiriva Respimat 2 inhalations daily, and DuoNeb updraft only once in a while. He complains that if he do uses DuoNeb updraft it makes him cough. I explained to him that that cough is actually beneficial so that he will bring up some phlegm. He uses oxygen 2 L/minute most of the times. Overall he has remained stable. [facility] Medical History Persistent atrial fibrillation Paroxysmal atrial fibrillation Fatigue COPD (chronic obstructive pulmonary disease) Hypoxemia requiring supplemental oxygen Restrictive lung disease Morbid obesity Chronic heart failure with preserved ejection fraction (HFpEF) Interstitial lung disease Pacemaker (~2021) Pulmonary fibrosis First degree AV block Chronic hyponatremia CHF (congestive heart failure) Atrial fibrillation with slow ventricular response COPD (chronic obstructive pulmonary disease) Restrictive lung disease Hypoxemia Morbid obesity IPF (idiopathic pulmonary fibrosis) Aortic stenosis CKD (chronic kidney disease) HTN (hypertension) Surgical History History of pacemaker (~2021) History of surgery on wrist Family History Father Cancer Mother Dementia Social History Household Members: Spouse Housing: House Do you presently have visiting nurse or other home services: No Alcohol intake: never Patient Tobacco Use Status: Never used Tobacco Advance Directives Date on File: 06/08/21 service: No Current occupational status: retired Review of Systems Const All systems reviewed & are unremarkable except as noted in HPI and below Eyes Reports no additional complaints ENT Reports no additional complaints Card Denies chest pain, Reports irregular heart rhythm, Reports leg edema (bilateral ) and Reports dyspnea on exertion Resp Reports as per HPI and Reports dyspnea on exertion GI Reports no additional complaints Reports no additional complaints Musc Reports abnormal gait (Patient is non ambulatory, uses wide wheelchair) and Reports back pain Skin/Breast Reports system reviewed and no additional complaints, except as documented Neuro Reports abnormal gait (Patient is non ambulatory, uses wide wheelchair) Psych Reports no additional complaints Physical Exam Vital Signs: Last Vital Signs Pulse 91 10/13/23 13:45 BP 120/70 10/13/23 13:45 Pulse Ox 97 10/13/23 13:45 Oxygen Delivery Method Nasal Cannula 10/13/23 13:45 Oxygen Flow Rate 2 10/13/23 13:45 BMI result Body Mass Index 37.1 Const General: no acute distress (But short of breath during conversation), alert and awake Orientation/consciousness: patient oriented x3 HEENT Head: Yes normal to inspection General nose exam: No nasal polyps present and No nasal discharge present Face and sinus: Yes sinuses nontender Mouth: oropharynx normal Teeth and gingiva: other (THROAT IS NARROW, BUT THERE IS NO EVIDENCE OF INFECTION AND ALSO NO THRUSH.) Throat: Yes posterior oropharynx normal Eyes General: appearance normal, both eyes and all related structures Neck Neck: Yes normal visual inspection, Yes no lymphadenopathy, Yes trachea midline and Yes no JVD Thyroid: Thyroid normal Chest Chest palpation & inspection: normal inspection of the chest, normal palpation of entire chest wall and no tenderness Resp Other: Percussion note not perceptible over the lower have some of the chest. Breath sounds are slightly decreased over both lower lobes. No wheezes or creps are heard . Cardio Palpation: normal PMI Rate: regular rate Rhythm: abnormal rhythm (Atrial fibrillation) Heart sounds: no gallops and no murmurs GI Palpation (GI): Soft to palpation, nontender, No hepatosplenomegaly present, no masses and Other GI palpation findings present (Abdomen is extremely obese and protuberant) Auscultation: normal bowel sounds Back/Spine/Pelvis Thoracic/Lumbar Spine: thoracic and lumbar spine normal to inspection and thoraco-lumbar ROM limited Skin General skin exam: no rashes or lesions noted and induration (Left leg) Neuro General: patient oriented x3, No gait normal (Non ambulatory) and no focal motor deficits Cranial nerves: Yes CN's II-XII intact bilaterally Extrem General: Yes normal to inspection, Yes no calf tenderness, Yes edema (only minimal edema of legs ) and Yes venous stasis dermatitis (of both legs ) Psych Appearance: grossly normal Speech and movement: Normal speech and movement present Assessment & Plan Assessment & Plan (1) COPD (chronic obstructive pulmonary disease): Comment: PER PULMONARY FUNCTION TEST HE DOES NOT HAVE ANY SIGNIFICANT OBSTRUCTIVE DISORDER, BUT CLINICALLY HE HAS FREQUENT COUGH AND SHORTNESS OF BREATH, WHICH ARE CONTROLLED WITH SPIRIVA RESPIMAT 2 INH DAILY . Code(s): J44.9 - Chronic obstructive pulmonary disease, unspecified Plan: PLAN : CONTINUE SPIRIVA RESPIMAT 2 INHALATIONS DAILY. USE DUONEB UPDRAFT Q 4-6 HOURS ONLY P.R.N. IF FEELS CONGESTED. (2) Interstitial lung disease: Comment: , PER CT SCAN OF THE CHEST HE HAS RESIDUAL PULMONARY FIBROSIS IN BOTH LOWER LOBES, GROUND-GLASS DENSITIES SECONDARY TO ALVEOLITIS HAVE RESOLVED. HE STILL CONTINUES TO HAVE SIGNIFICANT COUGH, CONGESTED FEELING AND DYSPNEA. Code(s): J84.9 - Interstitial pulmonary disease, unspecified Plan: USE DUONEB UPDRAFT Q 6 HOURS P.R.N. (3) Hypoxemia requiring supplemental oxygen: Comment: PATIENT HAS HYPOXEMIA SECONDARY TO RESTRICTIVE PULMONARY DISORDER AND ILD. HE IS DOING WELL WITH OXYGEN 3 L/MT WHICH HE NEEDS CONTINUOUSLY. TESTED PREVIOUSLY HE HAS NOT QUALIFIED FOR OXYGEN CONSERVING UNIT. Code(s): R09.02 - Hypoxemia; Z99.81 - Dependence on supplemental oxygen Plan: ABOVE (4) Morbid obesity: Comment: This gentleman is morbidly obese, especially with abdominal and truncal obesity. He denies symptoms of obstructive sleep apnea. Weight reduction discussed . As noted on previous visits for practical purposes it is very difficult for him to lose weight. Code(s): E66.01 - Morbid (severe) obesity due to excess calories Plan: ABOVE Coding Level of Care Code Est Pt Level 3 (72232) Diagnoses COPD (chronic obstructive pulmonary disease) J44.9 Interstitial lung disease J84.9 Hypoxemia requiring supplemental oxygen R09.02; Z99.81 Morbid obesity E66.01
[2023-10-13 13:45] VITALS: BP 120/70; PULSE 91; O2SAT 97; BMI 37.1
== END 2023-10-13 14:02 | disposition home or self-care (01) ==
PROVIDERS: PCP Internal Medicine; Visit Provider Internal Medicine
DX: J44.9 Chronic obstructive pulmonary disease, unspecified (principal); J84.9 Interstitial pulmonary disease, unspecified; R09.02 Hypoxemia; Z99.81 Dependence on supplemental oxygen; E66.01 Morbid (severe) obesity due to excess calories
CPT/HCPCS: 99213

== ENCOUNTER → 2023-10-13 13:41 | Outpatient (BNVA) | payer MEDICARE, SELFPAY | PROVIDERS: PCP Internal Medicine; Visit Provider Internal Medicine | DX: J44.9 Chronic obstructive pulmonary disease, unspecified (principal); J84.9 Interstitial pulmonary disease, unspecified; R09.02 Hypoxemia; E66.01 Morbid (severe) obesity due to excess calories; Z99.81 Dependence on supplemental oxygen; Z68.37 Body mass index [BMI] 37.0-37.9, adult | CPT/HCPCS: 99212 ==

== ENCOUNTER → 2023-12-16 23:59 | Outpatient (BNV) | payer MEDICARE, SELFPAY ==
--- NOTE | 2023-12-17 12:26 | A.OFFVIS_ITS ---
Intake Intake Visit Reasons: Remote Device Check- [facility] Allergies No Known Allergies [No Known Allergies*] Allergy (Verified 10/13/23 13:51) [facility] Medical History Persistent atrial fibrillation Paroxysmal atrial fibrillation Fatigue COPD (chronic obstructive pulmonary disease) Hypoxemia requiring supplemental oxygen Restrictive lung disease Morbid obesity Chronic heart failure with preserved ejection fraction (HFpEF) Interstitial lung disease Pacemaker (~2021) Pulmonary fibrosis First degree AV block Chronic hyponatremia CHF (congestive heart failure) Atrial fibrillation with slow ventricular response COPD (chronic obstructive pulmonary disease) Restrictive lung disease Hypoxemia Morbid obesity IPF (idiopathic pulmonary fibrosis) Aortic stenosis CKD (chronic kidney disease) HTN (hypertension) Surgical History History of pacemaker (~2021) History of surgery on wrist Family History Father Cancer Mother Dementia Social History Household Members: Spouse Housing: House Do you presently have visiting nurse or other home services: No Alcohol intake: never Patient Tobacco Use Status: Never used Tobacco Advance Directives Date on File: 06/08/21 service: No Current occupational status: retired Office Procedures Cardiac Device Check Cardiac Device Check Details: Remote pacemaker report generated 12/16/2023. Pacemaker function is adequate. [id number] Cardiac Device Interrogation, pacemaker Procedure code (CPT) selection complete Assessment & Plan Assessment & Plan (1) Pacemaker: Onset Date: ~2021 Comment: ([facility] DCPP - placed 11/2021) Code(s): Z95.0 - Presence of cardiac pacemaker Plan: See above Coding Level of Care Code Procedure Only Diagnoses Pacemaker Z95.0 CPT Codes Cardiac Device Check - Cardiac Device 12: [id number] Cardiac Device Interrogation, pacemaker ([id number])
== END ==
PROVIDERS: PCP Internal Medicine; Visit Provider Internal Medicine Cardiovascular Disease
DX: I44.2 Atrioventricular block, complete (principal); Z95.0 Presence of cardiac pacemaker
CPT/HCPCS: 93294

== ENCOUNTER 2024-01-19 16:07 | Emergency (ER) | payer MEDICARE, SELFPAY ==
--- NOTE | ~2024-01-19 | XR_ITS ---
EXAMINATION: XR CHEST CLINICAL INFORMATION: Shortness of breath, history of COPD. COMPARISON: CT chest 02/06/2023. Chest radiograph 02/06/2022. TECHNIQUE: Frontal view of the chest was obtained. FINDINGS: Left-sided pacer with leads projecting over the right atrium and right ventricle. Stable prominence of the cardiomediastinal silhouette. Increased bronchovascular markings with suggestion of more focal infiltrates in the lower lungs. Possible trace bilateral pleural effusions. No pneumothorax. No acute osseous findings. XR/XR chest 1V IMPRESSION: Findings are suggestive of small airways disease versus atypical/viral infection with infiltrates in the lower lungs and trace bilateral pleural effusions.
[2024-01-19 16:22] VITALS: BP 162/88; PULSE 66; O2SAT 95
--- NOTE | 2024-01-19 16:24 | ECG_ITS ---
Test Reason : DIFF BREATHING Blood Pressure : / mmHG Vent. Rate : 102 BPM Atrial Rate : 300 BPM P-R Int : 092 ms QRS Dur : 100 ms QT Int : 336 ms P-R-T Axes : 229 -38 131 degrees QTc Int : 437 ms Artifact in tracing Undetermined rhythm possibly intermittent V pacing Nonspecific ST and T wave abnormality Abnormal ECG When compared with ECG of 06-FEB-2022 11:12, Current undetermined rhythm precludes rhythm comparison, needs review Referred By: Neda Rueda Electronically Signed By:GILL SONG
--- NOTE | 2024-01-19 16:25 | ED.SOB ---
HPI - SOB/Dyspnea General Chief Complaint: Dyspnea Stated Complaint: DIFFICULTY BREATHING Time Seen by Provider: 01/19/24 16:09 Source: patient and EMS Mode of arrival: EMS Limitations: no limitations History of Present Illness HPI Narrative: Patient comes to the emergency room complaining of shortness of breath that started couple of days ago. Patient known to have CHF, asthma and COPD, uses 4 L at home. Per EMS, patient was found sitting, saturating 90% on his usual 4 L. patient was given 1 DuoNeb and patient states that he feels better now. Patient denies any lower extremity edema. Patient denies chest pain Related Data Home Medications ?Medication ?Instructions ?Recorded ?Confirmed allopurinol 100 mg tablet 200 mg PO BEDTIME 07/25/20 09/01/23 trttaatgxp-iizkfghetpmxf-gvtgeshp 1 tab PO Q6H PRN Migraine Headache 07/25/20 09/01/23 50 mg-325 mg-40 mg tablet cholecalciferol (vitamin D3) 25 25 mcg PO DAILY 07/25/20 09/01/23 mcg (1,000 unit) capsule atorvastatin 20 mg tablet 20 mg PO DAILY 06/06/21 09/01/23 omega 1-pxj-hpj-fish oil 1,200 mg 1 cap PO DAILY 11/26/21 09/01/23 (144 mg-216 mg) capsule (Fish Oil) Previous Rx's ?Medication ?Instructions ?Recorded commode (bedside commode) #1 ea 12/03/21 walker (Ultra-Light Rollator misc) #1 ea 12/03/21 albuterol sulfate 90 mcg/actuation 2 puff inhalation Q4-6H PRN 03/08/23 aerosol inhaler shortness of breath or wheezing #8.5 grams ipratropium 0.5 mg-albuterol 3 mg 3 ml inhalation Q4-6H PRN wheezing 05/20/23 (2.5 mg base)/3 mL nebulization 30 days #180 mL soln rivaroxaban 20 mg tablet (Xarelto) 20 mg PO DAILY #90 tabs 08/04/23 bumetanide 1 mg tablet 1 mg PO DAILY #30 tabs 10/07/23 metoprolol succinate 50 mg 50 mg PO DAILY #30 tabs 12/02/23 tablet,extended release 24 hr Spiriva Respimat 2.5 mcg/actuation 2 puff PO DAILY #4 grams 01/09/24 solution for inhalation (tiotropium bromide) albuterol sulfate 2.5 mg/3 mL 2.5 mg (3 mL) inhalation Q4-6H PRN 01/19/24 (0.083 %) solution for nebulization shortness of breath or wheezing #75 mL azithromycin 250 mg tablet 250 mg PO DAILY 4 days #4 tabs 01/19/24 prednisone 50 mg tablet 50 mg PO DAILY #4 tabs 01/19/24 Allergies Allergy/AdvReac Type Severity Reaction Status Date / Time No Known Allergies Allergy Verified 01/19/24 16:38 [No Known Allergies*] Review of Systems Review of Systems: Constitutional : No Weight loss, No Fever, No Chills, No Night Sweats, No Fatigue, No Malaise ENT/Mouth : No Hearing loss, No Ear Pain, No Nasal Congestion, No Sinus Pain, No Hoarseness, No sore throat, No Rhinorrhea, No Swallowing Difficulty Eyes: No Eye Pain, No Swelling, No Redness, No Foreign Body, No Discharge, No Vision Changes Cardiovascular : No Chest Pain, denies orthopnea, no palpitations Respiratory : Complaining of cough and wheezing, shortness of breath today Gastrointestinal : No Nausea, No Vomiting, No Diarrhea, No Constipation, No abdominal Pain, No Hematochezia, No Melena Genitourinary : no irregular bleeding, No Dysuria, No Urinary Frequency, No Hematuria, No Urinary Incontinence, No Urgency, No Flank Pain, No Urinary Flow Changes, No Hesitancy Musculoskeletal : No joint pain, No Myalgias, No Joint Swelling Skin : No Skin Lesions, No rash Neuro : No Weakness, No Numbness, No Paresthesias, No Loss of Consciousness, No Dizziness, No Headache Psych : No Anxiety/Panic, No Depression, No SI/HI/AH/VH, No Social Issues, Heme/Lymph: No Bruising, No Bleeding,No Lymphadenopathy Endocrine : No Polyuria, No Polydipsia, No Temperature Intolerance [facility] Past Medical History Medical History Persistent atrial fibrillation Paroxysmal atrial fibrillation Fatigue COPD (chronic obstructive pulmonary disease) Hypoxemia requiring supplemental oxygen Restrictive lung disease Morbid obesity Chronic heart failure with preserved ejection fraction (HFpEF) Interstitial lung disease Pacemaker (~2021) Pulmonary fibrosis First degree AV block Chronic hyponatremia CHF (congestive heart failure) Atrial fibrillation with slow ventricular response COPD (chronic obstructive pulmonary disease) Restrictive lung disease Hypoxemia Morbid obesity IPF (idiopathic pulmonary fibrosis) Aortic stenosis CKD (chronic kidney disease) HTN (hypertension) Surgical History History of pacemaker (~2021) History of surgery on wrist Family History Family History Father Cancer Mother Dementia Social History Social History Household Members: Spouse Housing: House Do you presently have visiting nurse or other home services: No Alcohol intake: never Patient Tobacco Use Status: Never used Tobacco Smoked in Last 30 Days: No Use of substances other than those prescribed or required for medical reasons: No Advance Directives: Yes Advance Directives on File: Yes Advance Directives Date on File: 06/08/21 Do you have a plan to hurt others: No Plan service: No Current occupational status: retired Physical Exam Vital Signs: Vital Signs: Last Vital Signs Temp 97.7 F 01/19/24 16:36 Pulse 63 01/19/24 16:36 Resp 26 H 01/19/24 16:36 BP 130/64 01/19/24 16:36 Pulse Ox 92 01/19/24 16:36 O2 Del Method Nasal Cannula 01/19/24 16:36 Oxygen Flow Rate 4 01/19/24 16:36 BMI result Body Mass Index 46.3 Const: Other: Appearance: Alert. Oriented X3. No acute distress. Eyes: Pupils equal, round and reactive to light. ENT: Pharynx normal. Neck: Normal inspection. Neck supple. No lymph nodes noted. No crepitus CVS: Normal heart rate and rhythm. Pulses normal. Normal S1 and S2 Respiratory: No respiratory distress. Fairly good air movement, minimal wheezing bilaterally, oxygen saturation 96% on his home dose 4 L Abdomen: Soft and nontender. No rigidity. No distention. Skin: Skin warm and dry. Normal skin color. Normal skin turgor. Lower extremities chronic venous stasis Extremities: No lower extremity edema. No Lacerations. No Rash Neuro: Oriented X 3. No motor deficit. No sensory deficit. Moving all extremities. No slurred speech. CN 2 through 12 grossly intact Psych: calm, cooperative, normal affect Course Course Course Narrative: -after a DuoNeb, patient started feeling much better. -of patient's labs and imaging pending Medical Decision Making Medical Decision Making [facility] Narrative: -my interpretation of labs: Hematology is at baseline. Normal white blood cell count. Patient's blood gases show a normal pH, a pCO2 of 99. However, patient's bicarb is 66, patient's pCO2 level is likely chronic. Patient is awake, alert and oriented x3, not somnolent. Negative troponin, BNP at baseline. -given patient's past medical history and presentation, patient is empirically being treated with azithromycin. Patient already received nebulization treatment before arriving to the hospital, magnesium, Solu-Medrol. -patient states that he feels back to baseline. Patient is wheelchair bound, nonambulatory, oxygen saturation steady at 94% on his home dose oxygen 4 L. -so far it seems that patient had an asthma exacerbation. Patient will be discharged with prednisone. Also, due to patient's past medical history of chronic lung disease, patient will be given a dose of antibiotics. -patient states that he ran out of albuterol for his lab machine. Has only been using inhalers. Differential Diagnosis Differential Diagnoses: The differential diagnosis associated with the presentation includes (Asthma, chronic lung disease, pneumonia, viral syndrome) Admission/Observation Consideration of admission/observation: Escalation of care including admission/observation considered Lab Data [facility] Lab Attestation statement: I reviewed the patient's lab results. 01/19/24 17:14 01/19/24 17:14 Labs: Lab Results 01/19/24 01/19/24 01/19/24 Range/Units 17:14 17:17 17:22 WBC 8.6 (4.8-10.8) X10*3/uL RBC 2.92 L (4.60-5.80) X10*6/uL Hgb 9.3 L (14.0-18.0) g/dl Hct 31.3 L (42.0-52.0) % MCV 107.2 H (80.0-98.0) fL MCH 31.8 (27.0-33.0) pg MCHC 29.7 L (31.0-36.0) g/dl RDW 15.7 (11.0-16.0) % Plt Count 215 (160-400) X10*3/uL MPV 9.9 (9.4-12.4) fL Immature Gran % (Auto) 0.7 H (0.0-0.4) % Neut % (Auto) 76.4 H (45-73) % Lymph % (Auto) 12.4 L (20-40) % Victoria % (Auto) 8.1 (2-11) % Eos % (Auto) 2.1 (0-4) % Baso % (Auto) 0.3 (0-2) % Lymph # (Auto) 1.1 L (1.2-4.9) X10*3/uL Victoria # (Auto) 0.7 (0.1-1.2) X10*3/uL Eos # (Auto) 0.2 (0.0-0.4) X10*3/uL Baso # (Auto) 0.0 (0.0-0.2) X10*3/uL Abs Immat Gran (auto) 0.06 H (0.00-0.03) X10*3/uL Absolute Neuts (auto) 6.6 (2.0-8.3) x10*3/uL Absolute Nucleated RBC 0.000 (0.0-0.012) X10*3/uL Nucleated RBC % (auto) 0.0 (0.0-0.2) /100WBC PT 15.0 H (11.1-13.3) SEC INR 1.2 H (0.9-1.1) VBG pH 7.43 (7.32-7.43) VBG pCO2 99 mmHg VBG pO2 42 mmHg VBG HCO3 66 H (22-26) mmol/L VBG O2 Saturation 67.0 % VBG Base Excess 35.3 mmol/L Sodium 139 (135-145) mmol/L Potassium 3.7 (3.3-5.1) mmol/L Chloride 79 L (96-108) mmol/L Carbon Dioxide 50 H* (22-29) mmol/L Anion Gap 14 (12-20) BUN 14 (9-16) mg/dL Creatinine 1.03 (0.5-1.4) mg/dL Estim Creat Clear Calc 80.4 Estimated GFR > 60 Random Glucose 162 H (60-115) mg/dL Lactic Acid 1.3 (0.5-2.0) mmol/L Calcium 9.4 D (8.4-10.2) mg/dL Total Bilirubin 0.7 (0.0-1.0) mg/dL Direct Bilirubin 0.4 (0.0-0.5) mg/dL AST 21 (5-37) U/L ALT 12 (0-40) U/L Alkaline Phosphatase 152 H (39-117) U/L Troponin I High Sens 18.0 (<3.5-35.0) ng/L B-Natriuretic Peptide 248 H (<100) pg/mL Total Protein 8.4 H (6.5-8.0) g/dL Albumin 3.2 L (3.5-5.0) g/dL Independent Interpretation I performed an independent interpretation of an: Plain X-Ray Radiology Impression Discussion of test interpretation with radiology: I have reviewed the radiologist's reading. Radiologist Impression: Left-sided pacer with leads projecting over the right atrium and right ventricle. Stable prominence of the cardiomediastinal silhouette. Increased bronchovascular markings with suggestion of more focal infiltrates in the lower lungs. Possible trace bilateral pleural effusions. No pneumothorax. No acute osseous findings. XR/XR chest 1V IMPRESSION: Findings are suggestive of small airways disease versus atypical/viral infection with infiltrates in the lower lungs and trace bilateral pleural effusions. Critical Care Time Critical Care Time Critical Care Time: Yes Total Critical Care Time: 45 Attestation: I have personally provided critical care time. Time includes review of lab data, radiology results, discussion with consultants, and monitoring for potential decompensation. Intervention performed as documented. Discharge Plan Discharge Clinical Impression: Asthma with exacerbation Patient Disposition: Home, Self-Care Instructions: Asthma (ED) Additional Instructions: Please follow-up with your primary care physician tomorrow. If you have any worsening or new symptoms, please return to the emergency room or call 911 Prescriptions: New albuterol sulfate 2.5 mg /3 mL (0.083 %) solution for nebulization 2.5 mg inhalation Q4-6H PRN (Reason: shortness of breath or wheezing) Qty: 75 0RF prednisone 50 mg tablet 50 mg PO DAILY Qty: 4 0RF azithromycin 250 mg tablet 250 mg PO DAILY 4 Days Qty: 4 0RF Rx Instructions: start on day 2 of therapy No Action ipratropium-albuterol 0.5 mg-3 mg(2.5 mg base)/3 mL solution for nebulization 3 ml inhalation Q4-6H PRN (Reason: wheezing) 30 Days Qty: 180 3RF Xarelto 20 mg tablet 20 mg PO DAILY Qty: 90 1RF Rx Instructions: must administer with evening meal bumetanide 1 mg tablet 1 mg PO DAILY Qty: 30 4RF Protocol: Hold for SBP< HOLD for SBP < : 90 metoprolol succinate 50 mg tablet extended release 24 hr 50 mg PO DAILY Qty: 30 6RF Spiriva Respimat 2.5 mcg/actuation mist 2 puff PO DAILY Qty: 4 3RF atorvastatin 20 mg tablet 20 mg PO DAILY omega 7-oek-nkq-fish oil [Fish Oil] 1,200 (144-216) mg Capsule 1 cap PO DAILY (DME) bedside commode Kit See Rx Instructions .Route Qty: 1 0RF Rx Instructions: As directed (DME) Ultra-Light Rollator Misc See Rx Instructions .Route Qty: 1 0RF Rx Instructions: As directed wogtieqeio-hoxznhklpspyg-hyqd 50-325-40 mg tablet 1 tab PO Q6H PRN (Reason: Migraine Headache) cholecalciferol (vitamin D3) 25 mcg (1,000 unit) capsule 25 mcg PO DAILY allopurinol 100 mg tablet 200 mg PO BEDTIME albuterol sulfate 90 mcg/actuation HFA aerosol inhaler 2 puff inhalation Q4-6H PRN (Reason: shortness of breath or wheezing) Qty: 8.5 3RF Print Language: Arabic
[2024-01-19 16:36] VITALS: BP 130/64; PULSE 63; RESP 26; TEMP 36.5; O2SAT 92; BMI 46.3
[2024-01-19 17:20] LABS: MANUAL DIFF FLAG NO
[2024-01-19 17:25] LABS: VBG Base Excess 35.3 mmol/L; VBG HCO3 66 mmol/L (22-26); VBG pCO2 99 mmHg; VBG pH 7.43 (7.32-7.43); VBG pO2 42 mmHg
[2024-01-19 17:26] LABS: Venous Blood Gas Refer to POC result
[2024-01-19 17:27] LABS: Basophils Percent Auto 0.3 % (0-2); Eosinophils Absolute Auto 0.2 X10*3/uL (0.0-0.4); Eosinophils Percent Auto 2.1 % (0-4); Hematocrit 31.3 % (42.0-52.0); Hemoglobin 9.3 g/dl (14.0-18.0); Imm Gran Abs Auto 0.06 X10*3/uL (0.00-0.03); Imm Gran Pct Auto 0.7 % (0.0-0.4); Lymphocytes Absolute Auto 1.1 X10*3/uL (1.2-4.9); Lymphocytes Percent Auto 12.4 % (20-40); Mean Corpuscular HGB Conc 29.7 g/dl (31.0-36.0); Mean Corpuscular Hemoglobin 31.8 pg (27.0-33.0); Mean Corpuscular Volume 107.2 fL (80.0-98.0); Mean Platelet Volume 9.9 fL (9.4-12.4); Monocytes Absolute Auto 0.7 X10*3/uL (0.1-1.2); Monocytes Percent Auto 8.1 % (2-11); Neutrophils Absolute Auto 6.6 x10*3/uL (2.0-8.3); Neutrophils Percent Auto 76.4 % (45-73); Platelet Count 215 X10*3/uL (160-400); Red Blood Count 2.92 X10*6/uL (4.60-5.80); Red Cell Distribution Width 15.7 % (11.0-16.0); White Blood Count 8.6 X10*3/uL (4.8-10.8)
[2024-01-19 17:32] LABS: INTERNATIONAL NORM RATIO 1.2 (0.9-1.1)
[2024-01-19 17:43] LABS: B Type Natriuretic Peptide 248 pg/mL (<100)
[2024-01-19 17:44] LABS: Lactic Acid 1.3 mmol/L (0.5-2.0)
[2024-01-19 17:49] LABS: Alanine Aminotransferase 12 U/L (0-40); Albumin Level 3.2 g/dL (3.5-5.0); Alkaline Phosphatase 152 U/L (39-117); Anion Gap 14 (12-20); Aspartate Amino Transferase 21 U/L (5-37); Bilirubin Direct 0.4 mg/dL (0.0-0.5); Bilirubin Total 0.7 mg/dL (0.0-1.0); Blood Urea Nitrogen 14 mg/dL (9-16); Calcium 9.4 mg/dL (8.4-10.2); Chloride 79 mmol/L (96-108); Creatinine Clr Calc Pharmacy 80.4; Estimated Glomerular Filt Rate > 60; Glucose Random 162 mg/dL (60-115); Potassium 3.7 mmol/L (3.3-5.1); Sodium 139 mmol/L (135-145); Total Protein 8.4 g/dL (6.5-8.0)
[2024-01-19 18:02] LABS: Carbon Dioxide 50 mmol/L (22-29)
[2024-01-19] MEDS: methylPREDNISolone Sod Succ 125 MG/2 ML VIAL IVPUSH (20:40)
[2024-01-19] MEDS: Magnesium Sulfate/H2O 2 GM/50 ML PIGGYBACK IV (20:40)
[2024-01-19] MEDS: Azithromycin 500 MG TABLET PO (20:40)
[2024-01-19 20:49] VITALS: BP 121/52; PULSE 82; RESP 22; TEMP 36.6; O2SAT 96
[2024-01-19 20:55] LABS: IDNOW Serial# 08D9AD1C
[2024-01-19 20:56] LABS: COVID-19 Test Negative (Negative)
[2024-01-19 20:56] LABS: IDNOW Serial# 152EDE1D; Influenza A Negative (Negative); Influenza B2 Negative (Negative)
[2024-01-19 21:56] VITALS: BP 118/56; PULSE 60; RESP 20; TEMP 36.7; O2SAT 95
--- NOTE | 2024-01-19 22:53 | PC.NURSE ---
Patient okay to be d/c'd, needs ambulance ride back home d/t inability to walk, [facility] made aware.
--- NOTE | 2024-01-19 23:19 | PC.NURSE ---
EMS at bedside.
[2024-01-19 23:34] VITALS: BP 118/56; PULSE 60; RESP 20; TEMP 36.6; O2SAT 96
== END 2024-01-19 23:35 | disposition home or self-care (01) ==
PROVIDERS: Emergency Provider Emergency Medicine
DX: J45.901 Unspecified asthma with (acute) exacerbation (principal); J44.9 Chronic obstructive pulmonary disease, unspecified; R06.02 Shortness of breath; R94.31 Abnormal electrocardiogram [ECG] [EKG]; Z79.899 Other long term (current) drug therapy; Z11.52 Encounter for screening for COVID-19
CPT/HCPCS: 36415; 71045; 80048; 80076; 82803; 83605; 83880; 84484; 85025; 85610; 87040; 87502; 87635; 93005; 96365; 96366; 96375; 99284; 99285; J2919; J3475

== ENCOUNTER → 2024-01-19 16:24 | Outpatient (BNV) | payer MEDICARE, SELFPAY | PROVIDERS: Emergency Provider Emergency Medicine; Visit Provider Internal Medicine | DX: R94.31 Abnormal electrocardiogram [ECG] [EKG] (principal) | CPT/HCPCS: 93010 ==

== ENCOUNTER 2024-02-02 22:17 | Emergency (ER) | payer MEDICARE, SELFPAY ==
--- NOTE | ~2024-02-02 | XR_ITS ---
EXAMINATION: XR CHEST CLINICAL INFORMATION: Dyspnea. COMPARISON: 01/19/2024 TECHNIQUE: Frontal view of the chest was obtained. FINDINGS: The cardiomediastinal silhouette is stable. Pacer leads are in place. There is no focal lung consolidation or pleural effusion. The bony structures and soft tissues are unremarkable. XR/XR chest 1V IMPRESSION: No evidence for acute disease.
[2024-02-02 22:27] VITALS: BP 140/80; PULSE 73; O2SAT 96
--- NOTE | 2024-02-02 22:33 | ECG_ITS ---
Test Reason : SOB Blood Pressure : / mmHG Vent. Rate : 075 BPM Atrial Rate : 000 BPM P-R Int : 000 ms QRS Dur : 104 ms QT Int : 364 ms P-R-T Axes : 000 -41 119 degrees QTc Int : 406 ms Atrial fibrillation Left axis deviation Left ventricular hypertrophy with repolarization abnormality ( R in aVL , [place] product ) Abnormal ECG When compared with ECG of 19-JAN-2024 17:01, Previous ECG has undetermined rhythm, needs review ST no longer depressed in Lateral leads Inverted T waves have replaced nonspecific T wave abnormality in Lateral leads Referred By: Marilyn Bergman Electronically Signed By:ELENITA GORE MD
[2024-02-02] MEDS: Albuterol Sulfate 5 MG, Albuterol/Iprat 2.5/0.5MG 3 ML 3 ML INHALE (22:39)
[2024-02-02 22:41] VITALS: PULSE 81; RESP 16; O2SAT 92
[2024-02-02 22:44] VITALS: BP 142/53; PULSE 91; RESP 18; TEMP 36.5; O2SAT 98
--- NOTE | 2024-02-02 22:44 | ED.SOB ---
HPI - SOB/Dyspnea General Chief Complaint: Dyspnea Stated Complaint: SOB -82% RA, 96% w/ duo neb, wheezing Time Seen by Provider: 02/02/24 22:23 Source: patient, EMS and old records reviewed Mode of arrival: EMS Limitations: no limitations History of Present Illness HPI Narrative: 78 yo male with PMH of asthma, chronic resp failure on 4L NC, ILD, PAF on xarelto, PPM, aortic stenosis, CHF preserved EF, reports he has been feeling a little sick for the past few days and tonight he was coughing and felt more short of breath checked his O2 level it was in the 70s. EMS found him 82% on his 4L NC he has no chest pain. Denies fevers or change in sputum production. Given duoneb and put on NRB on arrival to our ED he is 98% on his 4L NC MD elicited complaint: shortness of breath Pertinent past history: COPD, asthma and congestive heart failure Onset (ago): day(s) (few) Context: recent illness Timing: improved Severity: moderate Exacerbating factors: exertion Relieving factors: oxygen, rest and bronchodilators Known history of: COPD, asthma and congestive heart failure Associated symptoms: cough Treatment prior to arrival: oxygen and bronchodilator Related Data Home Medications ?Medication ?Instructions ?Recorded ?Confirmed allopurinol 100 mg tablet 200 mg PO BEDTIME 07/25/20 09/01/23 ymqfvykpls-zfmojoekirysn-ryvtusro 1 tab PO Q6H PRN Migraine Headache 07/25/20 09/01/23 50 mg-325 mg-40 mg tablet cholecalciferol (vitamin D3) 25 25 mcg PO DAILY 07/25/20 09/01/23 mcg (1,000 unit) capsule atorvastatin 20 mg tablet 20 mg PO DAILY 06/06/21 09/01/23 omega 2-ybp-qht-fish oil 1,200 mg 1 cap PO DAILY 11/26/21 09/01/23 (144 mg-216 mg) capsule (Fish Oil) Previous Rx's ?Medication ?Instructions ?Recorded commode (bedside commode) #1 ea 12/03/21 walker (Ultra-Light Rollator misc) #1 ea 12/03/21 albuterol sulfate 90 mcg/actuation 2 puff inhalation Q4-6H PRN 03/08/23 aerosol inhaler shortness of breath or wheezing #8.5 grams ipratropium 0.5 mg-albuterol 3 mg 3 ml inhalation Q4-6H PRN wheezing 05/20/23 (2.5 mg base)/3 mL nebulization 30 days #180 mL soln rivaroxaban 20 mg tablet (Xarelto) 20 mg PO DAILY #90 tabs 08/04/23 bumetanide 1 mg tablet 1 mg PO DAILY #30 tabs 10/07/23 metoprolol succinate 50 mg 50 mg PO DAILY #30 tabs 12/02/23 tablet,extended release 24 hr Spiriva Respimat 2.5 mcg/actuation 2 puff PO DAILY #4 grams 01/09/24 solution for inhalation (tiotropium bromide) azithromycin 250 mg tablet 250 mg PO DAILY 4 days #4 tabs 01/19/24 prednisone 50 mg tablet 50 mg PO DAILY #4 tabs 01/19/24 albuterol sulfate 2.5 mg/3 mL 2.5 mg (3 mL) inhalation Q4-6H PRN 01/20/24 (0.083 %) solution for nebulization shortness of breath or wheezing #75 mL Allergies Allergy/AdvReac Type Severity Reaction Status Date / Time No Known Allergies Allergy Verified 02/02/24 23:21 [No Known Allergies*] Review of Systems Review of Systems: Constitutional : No Fever, No Chills ENT/Mouth : No Hoarseness, No sore throat, No Rhinorrhea Eyes: No Redness, No Discharge, No Vision Changes Cardiovascular : No Chest Pain, positive SOB, positive Dyspnea on Exertion, No Edema Respiratory : positive Cough, No Sputum, positive Wheezing, Gastrointestinal : No Nausea, No Vomiting, No Diarrhea, No abdominal Pain Genitourinary : No Dysuria, No Hematuria Musculoskeletal : No joint pain, No Myalgias Skin : No rash Neuro : No Weakness, No Numbness, No Headache Psych : No anxiety, depression Heme/Lymph: No Bruising, No Bleeding Endocrine : No Polyuria, No Polydipsia All other systems reviewed and are negative [facility] Past Medical History Attestation statement: The following information was validated with the patient. Source: old records reviewed Medical History Persistent atrial fibrillation Paroxysmal atrial fibrillation Fatigue COPD (chronic obstructive pulmonary disease) Hypoxemia requiring supplemental oxygen Restrictive lung disease Morbid obesity Chronic heart failure with preserved ejection fraction (HFpEF) Interstitial lung disease Pacemaker (~2021) Pulmonary fibrosis First degree AV block Chronic hyponatremia CHF (congestive heart failure) Atrial fibrillation with slow ventricular response COPD (chronic obstructive pulmonary disease) Restrictive lung disease Hypoxemia Morbid obesity IPF (idiopathic pulmonary fibrosis) Aortic stenosis CKD (chronic kidney disease) HTN (hypertension) Surgical History History of pacemaker (~2021) History of surgery on wrist Family History Family History Father Cancer Mother Dementia Social History Social History Household Members: Spouse Housing: House Do you presently have visiting nurse or other home services: No Alcohol intake: never Patient Tobacco Use Status: Never used Tobacco Smoked in Last 30 Days: No Advance Directives: Yes Advance Directives on File: Yes Advance Directives Date on File: 06/08/21 Do you have a plan to hurt others: No Plan service: No Current occupational status: retired Physical Exam Vital Signs: Vital Signs: Last Vital Signs Temp 97.7 F 02/02/24 22:44 Pulse 88 02/03/24 00:28 Resp 16 02/03/24 00:28 BP 118/64 02/03/24 00:28 Pulse Ox 93 02/03/24 00:28 O2 Del Method Nasal Cannula 02/03/24 00:28 O2 Flow Rate 2 02/02/24 22:44 BMI result Body Mass Index 44.2 Appearance: Alert. Oriented X3. No acute distress. Eyes: Pupils equal, round and reactive to light. ENT: Pharynx normal. Neck: Normal inspection. Neck supple. CVS: Normal heart rate and rhythm. Pulses normal. Respiratory: No respiratory distress. Breath sounds slightly diminished Abdomen: Soft and nontender. Skin: Skin warm and dry. Normal skin color. Normal skin turgor. Extremities: No lower extremity edema. No calf ttp Neuro: Oriented X 3. No motor deficit. No sensory deficit. Course Course Course Narrative: no resp distress, lungs improved slight diminished 93% on his 4L right now 110am Medications Administered Discontinued Medications Generic Name Dose Route Start Last Admin Trade Name Freq PRN Reason Stop Dose Admin Albuterol Sulfate 5 mg/ 0 mg 02/02/24 22:35 02/02/24 22:39 Albuterol/Ipratropium 3 ml INHALE 02/02/24 22:36 2.5 each ONCE ONE Administration Ceftriaxone Sodium 1 gm/ 50 mls @ 100 mls/hr 02/02/24 22:53 02/02/24 23:48 Sodium Chloride IV 02/02/24 23:22 Infused ONCE ONE Infusion Methylprednisolone Sodium Succinate 60 mg 02/02/24 22:33 02/02/24 23:17 Methylprednisolone Sod Succ 125 Mg/2 Ml Vial IVPUSH 02/02/24 22:34 60 mg ONCE ONE Administration Medical Decision Making Medical Decision Making [facility] Narrative: 78 yo male with PMH of asthma, chronic resp failure on 4L NC, ILD, PAF on xarelto, PPM, aortic stenosis, CHF preserved EF here with c/o worsening shortness of breath has hx of same sounds like in setting of a cough at this time no hypoxia stable on his normal O2. Will obtain basic labs, CXR, IV steroids, bronch protocol, start on empiric ceftriaxone he has no chest pain to suggest ACS and is on xarelto doubt VTE, no leg edema to suggest CHF Differential Diagnosis Differential Diagnoses: The differential diagnosis associated with the presentation includes asthma, viral syndrome, chronic hypoxia Admission/Observation Consideration of admission/observation: Escalation of care including admission/observation considered hemoglobin, BNP, trop and EKG at baseline no disease on CXR sats > 93% while here no resp distress states he feels 100% better and wants to go home has not been hypoxic with us at all will DC home on doxy and steroids Lab Data [facility] Lab Attestation statement: I reviewed the patient's lab results. 02/02/24 22:49 02/02/24 22:49 Labs: Lab Results 02/02/24 02/02/24 02/02/24 Range/Units 22:48 22:49 22:55 WBC 11.2 H (4.8-10.8) X10*3/uL RBC 2.98 L (4.60-5.80) X10*6/uL Hgb 9.6 L (14.0-18.0) g/dl Hct 31.8 L (42.0-52.0) % MCV 106.7 H (80.0-98.0) fL MCH 32.2 (27.0-33.0) pg MCHC 30.2 L (31.0-36.0) g/dl RDW 15.5 (11.0-16.0) % Plt Count 218 (160-400) X10*3/uL MPV 10.1 (9.4-12.4) fL Immature Gran % (Auto) 0.7 H (0.0-0.4) % Neut % (Auto) 79.9 H (45-73) % Lymph % (Auto) 11.1 L (20-40) % [place] % (Auto) 6.3 (2-11) % Eos % (Auto) 1.8 (0-4) % Baso % (Auto) 0.2 (0-2) % Lymph # (Auto) 1.2 (1.2-4.9) X10*3/uL [place] # (Auto) 0.7 (0.1-1.2) X10*3/uL Eos # (Auto) 0.2 (0.0-0.4) X10*3/uL Baso # (Auto) 0.0 (0.0-0.2) X10*3/uL Abs Immat Gran (auto) 0.08 H (0.00-0.03) X10*3/uL Absolute Neuts (auto) 8.9 H (2.0-8.3) x10*3/uL Absolute Nucleated RBC 0.000 (0.0-0.012) X10*3/uL Nucleated RBC % (auto) 0.0 (0.0-0.2) /100WBC VBG pH 7.46 H (7.32-7.43) VBG pCO2 90 mmHg VBG pO2 39 mmHg VBG HCO3 64 H (22-26) mmol/L VBG O2 Saturation 63.0 % VBG Base Excess 34.8 mmol/L Sodium 143 (135-145) mmol/L Potassium 4.3 (3.3-5.1) mmol/L Chloride 82 L (96-108) mmol/L Carbon Dioxide 49 H* (22-29) mmol/L Anion Gap 16 (12-20) BUN 18 H (9-16) mg/dL Creatinine 1.10 (0.5-1.4) mg/dL Estim Creat Clear Calc 73.3 Estimated GFR > 60 Random Glucose 161 H (60-115) mg/dL Lactic Acid 1.5 (0.5-2.0) mmol/L Calcium 9.4 (8.4-10.2) mg/dL Magnesium 2.0 (1.6-2.6) mg/dL Total Bilirubin 0.6 (0.0-1.0) mg/dL Direct Bilirubin 0.3 (0.0-0.5) mg/dL AST 20 (5-37) U/L ALT 12 (0-40) U/L Alkaline Phosphatase 157 H (39-117) U/L Troponin I High Sens 21.8 (<3.5-35.0) ng/L B-Natriuretic Peptide 222 H (<100) pg/mL Total Protein 7.6 (6.5-8.0) g/dL Albumin 3.1 L (3.5-5.0) g/dL Procalcitonin 0.06 ng/mL Independent Interpretation I performed an independent interpretation of an: EKG and Plain X-Ray (no pneumonia) Interpretation: Rate: 75 Rhythm: afib [place]: left Normal P waves. Normal [place]. Normal QRS complex. ST T wave : artifact but no [place] qTC: 406 prior studies: no acute ischemia The study has been interpreted contemporaneously by me. . Radiology Impression Discussion of test interpretation with radiology: I have reviewed the radiologist's reading. Independent Historian Clinical information obtained from an independent historian. History obtained from or confirmed by: EMS External Record Review External record reviewed: Inpatient record Prescription Management I considered prescription management with: Antibiotic and Other Discharge Plan Discharge Clinical Impression: COPD (chronic obstructive pulmonary disease) Qualifiers: COPD type: COPD with acute exacerbation Qualified Code(s): J44.1 - Chronic obstructive pulmonary disease with (acute) exacerbation Patient Disposition: Home, Self-Care Instructions: COPD (Chronic Obstructive Pulmonary Disease) (ED) Additional Instructions: oxygen levels here > 93% the whole time normal labs and chest xray. return for any worsening sypmtoms. please follow up with your lung doctor this week. start on doxycycline. would bump up prednisone to 40mg for the next 3 days return for any worsening symptoms or concerns. Prescriptions: No Action ipratropium-albuterol 0.5 mg-3 mg(2.5 mg base)/3 mL solution for nebulization 3 ml inhalation Q4-6H PRN (Reason: wheezing) 30 Days Qty: 180 3RF Xarelto 20 mg tablet 20 mg PO DAILY Qty: 90 1RF Rx Instructions: must administer with evening meal bumetanide 1 mg tablet 1 mg PO DAILY Qty: 30 4RF Protocol: Hold for SBP< HOLD for SBP < : 90 metoprolol succinate 50 mg tablet extended release 24 hr 50 mg PO DAILY Qty: 30 6RF Spiriva Respimat 2.5 mcg/actuation mist 2 puff PO DAILY Qty: 4 3RF atorvastatin 20 mg tablet 20 mg PO DAILY omega 2-urp-hvb-fish oil [Fish Oil] 1,200 (144-216) mg Capsule 1 cap PO DAILY (DME) bedside commode Kit See Rx Instructions .Route Qty: 1 0RF Rx Instructions: As directed (DME) Ultra-Light Rollator Misc See Rx Instructions .Route Qty: 1 0RF Rx Instructions: As directed prednisone 50 mg tablet 50 mg PO DAILY Qty: 4 0RF azithromycin 250 mg tablet 250 mg PO DAILY 4 Days Qty: 4 0RF Rx Instructions: start on day 2 of therapy albuterol sulfate 2.5 mg /3 mL (0.083 %) solution for nebulization 2.5 mg inhalation Q4-6H PRN (Reason: shortness of breath or wheezing) Qty: 75 0RF kqrtjauuyl-egqegxxusmyza-ouyt 50-325-40 mg tablet 1 tab PO Q6H PRN (Reason: Migraine Headache) cholecalciferol (vitamin D3) 25 mcg (1,000 unit) capsule 25 mcg PO DAILY allopurinol 100 mg tablet 200 mg PO BEDTIME albuterol sulfate 90 mcg/actuation HFA aerosol inhaler 2 puff inhalation Q4-6H PRN (Reason: shortness of breath or wheezing) Qty: 8.5 3RF Print Language: Tuvaluan
[2024-02-02 22:57] LABS: MANUAL DIFF FLAG NO
[2024-02-02 22:58] LABS: Basophils Percent Auto 0.2 % (0-2); Eosinophils Absolute Auto 0.2 X10*3/uL (0.0-0.4); Eosinophils Percent Auto 1.8 % (0-4); Hematocrit 31.8 % (42.0-52.0); Hemoglobin 9.6 g/dl (14.0-18.0); Imm Gran Abs Auto 0.08 X10*3/uL (0.00-0.03); Imm Gran Pct Auto 0.7 % (0.0-0.4); Lymphocytes Absolute Auto 1.2 X10*3/uL (1.2-4.9); Lymphocytes Percent Auto 11.1 % (20-40); Mean Corpuscular HGB Conc 30.2 g/dl (31.0-36.0); Mean Corpuscular Hemoglobin 32.2 pg (27.0-33.0); Mean Corpuscular Volume 106.7 fL (80.0-98.0); Mean Platelet Volume 10.1 fL (9.4-12.4); Monocytes Absolute Auto 0.7 X10*3/uL (0.1-1.2); Monocytes Percent Auto 6.3 % (2-11); Neutrophils Absolute Auto 8.9 x10*3/uL (2.0-8.3); Neutrophils Percent Auto 79.9 % (45-73); Platelet Count 218 X10*3/uL (160-400); Red Blood Count 2.98 X10*6/uL (4.60-5.80); Red Cell Distribution Width 15.5 % (11.0-16.0); White Blood Count 11.2 X10*3/uL (4.8-10.8)
[2024-02-02] MEDS: cefTRIAXone sodium 1 GM in 0.9 % Sodium Chloride 50 ML IV (22:59)
[2024-02-02 23:00] LABS: Venous Blood Gas Refer to POC result
[2024-02-02 23:01] LABS: VBG Base Excess 34.8 mmol/L; VBG HCO3 64 mmol/L (22-26); VBG pCO2 90 mmHg; VBG pH 7.46 (7.32-7.43); VBG pO2 39 mmHg
--- NOTE | 2024-02-02 23:01 | PC.NURSE ---
pt changed into hospital attire, teletypesetter monitor applied, respiratory at bedside- pt to rec additional updraft, and steroids. 20G IV establish L-ac rocephin infusing per order
[2024-02-02 23:07] LABS: Lactic Acid 1.5 mmol/L (0.5-2.0)
[2024-02-02 23:17] LABS: Troponin-I High Sensitivity 21.8 ng/L (<3.5-35.0)
[2024-02-02] MEDS: methylPREDNISolone Sod Succ 125 MG/2 ML VIAL 60 MG IVPUSH (23:17)
[2024-02-02 23:20] VITALS: BMI 44.2
[2024-02-02 23:22] LABS: B Type Natriuretic Peptide 222 pg/mL (<100)
[2024-02-02 23:31] LABS: Alanine Aminotransferase 12 U/L (0-40); Albumin Level 3.1 g/dL (3.5-5.0); Alkaline Phosphatase 157 U/L (39-117); Anion Gap 16 (12-20); Aspartate Amino Transferase 20 U/L (5-37); Bilirubin Direct 0.3 mg/dL (0.0-0.5); Bilirubin Total 0.6 mg/dL (0.0-1.0); Blood Urea Nitrogen 18 mg/dL (9-16); Calcium 9.4 mg/dL (8.4-10.2); Carbon Dioxide 49 mmol/L (22-29); Chloride 82 mmol/L (96-108); Creatinine Clr Calc Pharmacy 73.3; Estimated Glomerular Filt Rate > 60; Glucose Random 161 mg/dL (60-115); Potassium 4.3 mmol/L (3.3-5.1); Sodium 143 mmol/L (135-145); Total Protein 7.6 g/dL (6.5-8.0)
[2024-02-02 23:35] LABS: Procalcitonin 0.06 ng/mL
[2024-02-03 00:28] VITALS: BP 118/64; PULSE 88; RESP 16; O2SAT 93
[2024-02-03 01:30] VITALS: BP 118/64; PULSE 88; RESP 16; TEMP 36.1; O2SAT 95
== END 2024-02-03 04:07 | disposition home or self-care (01) ==
PROVIDERS: Emergency Provider Emergency Medicine; PCP Internal Medicine
DX: J44.1 Chronic obstructive pulmonary disease with (acute) exacerbation (principal); R06.02 Shortness of breath; R05.9 Cough, unspecified; I48.91 Unspecified atrial fibrillation; Z79.01 Long term (current) use of anticoagulants; Z79.899 Other long term (current) drug therapy
CPT/HCPCS: 71045; 80048; 80076; 82803; 83605; 83735; 83880; 84145; 84484; 85025; 87040; 93005; 94640; 96365; 96375; 99284; 99285; J0696; J2919

== ENCOUNTER → 2024-02-02 22:33 | Outpatient (BNV) | payer MEDICARE, SELFPAY | PROVIDERS: Emergency Provider Emergency Medicine; PCP Internal Medicine; Visit Provider Internal Medicine Cardiovascular Disease | DX: I48.91 Unspecified atrial fibrillation (principal) | CPT/HCPCS: 93010 ==

== ENCOUNTER 2024-02-09 13:30 | Outpatient (AMB) | payer MEDICARE, SELFPAY ==
[2024-02-09 13:35] VITALS: BP 110/72; PULSE 71; O2SAT 95
--- NOTE | 2024-02-09 13:35 | MHC.OFFVIS ---
Vital Signs 02/09/24 13:35 Height 5 ft 8 in BP 110/72 Blood Pressure Location Lt brachial Position Sitting Pulse 71 Pulse Source Pulse Oximeter Pulse Oximetry (%) 95 Oxygen Delivery Method Nasal Cannula Oxygen Flow Rate 4 Intake Visit Reasons: copd Intake Note: pt is here for follow up and states he was in ER x2 for copd, still has mucous with cough, some red tinged, some yellow/green. Allergies No Known Allergies [No Known Allergies*] Allergy (Verified 02/09/24 13:57) Medication List - Last Reconciled 02/09/24 by Marsha Rosales MD albuterol sulfate 2.5 mg (3 mL) inhalation Q4-6H PRN albuterol sulfate 90 mcg/actuation 2 puffs inhalation Q4-6H PRN allopurinol 200 mg PO BEDTIME atorvastatin 20 mg PO DAILY azithromycin 250 mg PO DAILY 4 days bumetanide 1 mg See Protocol PO DAILY iyajrpydns-sjlbczhutqngt-hmtm 50-325-40 mg 1 tab PO Q6H PRN cholecalciferol (vitamin D3) 25 mcg PO DAILY commode (bedside commode) As directed ipratropium-albuterol 0.5 mg-3 mg(2.5 mg base)/3 mL 3 mL inhalation Q4-6H PRN 30 days metoprolol succinate ER 50 mg PO DAILY omega 3-bqn-hzo-fish oil 1,200 (144-216) mg (Fish Oil) 1 cap PO DAILY prednisone 50 mg PO DAILY rivaroxaban (Xarelto) 20 mg PO DAILY Spiriva Respimat 2.5 mcg/actuation (tiotropium bromide) 2 puffs PO DAILY NS walker (Ultra-Light Rollator misc) As directed Do you need a note to return to daycare/school/sports/work: No HPI HPI copd: Details: LEONOR IS 78 YEARS OLD VERY PLEASANT GENTLEMAN WHO IS MORBIDLY OBESE, AND HAS CHRONIC RESPIRATORY FAILURE. HE HAS NEVER BEEN WORKED UP FOR SLEEP APNEA , AND PREVIOUSLY NEVER USED CPAP OR BIPAP. LEONOR HAS HAD COVID INFECTION FOLLOWED BY RESPIRATORY FAILURE, AND DURING THAT TIME HE DID USE HIGH-FLOW OXYGEN THEN BIPAP FOR A SHORT PERIOD. HE IS BEING TREATED FOR ONGOING RESTRICTIVE PULMONARY DISORDER/MILD RESIDUAL INTERSTITIAL LUNG DISEASE/CHRONIC OBSTRUCTIVE PULMONARY DISEASE/CHRONIC RESPIRATORY FAILURE. HE IS ON O2 3-4 L/MINUTE, , NOW A DAYS HAS INCREASED TO 4 L . FOR MOST OF THE TIME RECENTLY HE HAS HAD BOUTS OF COUGH WITH URGE TO EXPECTORATES BUT THERE IS NOT MUCH MUCUS THAT HE CAN BRING UP. HE HAS BEEN SEEN IN THE EMERGENCY ROOM TWICE, THERE WAS NO DEFINITE PNEUMONIA, HE WAS TREATED WITH A COURSE OF AZITHROMYCIN AND PREDNISONE. 2ND TIME HE WAS SEEN IN THE EMERGENCY ROOM JUST ABOUT A WEEK AGO WITH SIMILAR SYMPTOMS. ON THIS VISIT CHEST X-RAY DID NOT SHOW. ANY ACUTE DISEASE VENOUS BLOOD GASES SHOW MARKEDLY ELEVATED PCO2 BUT NORMAL PH C/W CHRONIC COMPENSATED RESPIRATORY FAILURE. [facility] Medical History (Updated 02/09/24 @ 14:09 by Marsha Rosales MD) Respiratory failure with hypoxia and hypercapnia Hypoventilation syndrome Persistent atrial fibrillation Paroxysmal atrial fibrillation Fatigue COPD (chronic obstructive pulmonary disease) Hypoxemia requiring supplemental oxygen Restrictive lung disease Morbid obesity Chronic heart failure with preserved ejection fraction (HFpEF) Interstitial lung disease Pacemaker (~2021) Pulmonary fibrosis First degree AV block Chronic hyponatremia CHF (congestive heart failure) Atrial fibrillation with slow ventricular response COPD (chronic obstructive pulmonary disease) Restrictive lung disease Hypoxemia Morbid obesity IPF (idiopathic pulmonary fibrosis) Aortic stenosis CKD (chronic kidney disease) HTN (hypertension) Surgical History History of pacemaker (~2021) History of surgery on wrist Family History Father Cancer Mother Dementia Social History Household Members: Spouse Housing: House Do you presently have visiting nurse or other home services: No Alcohol intake: never Patient Tobacco Use Status: Never used Tobacco Advance Directives Date on File: 06/08/21 service: No Current occupational status: retired Review of Systems Const All systems reviewed & are unremarkable except as noted in HPI and below Eyes Reports no additional complaints ENT Reports no additional complaints Card Denies chest pain, Reports irregular heart rhythm, Reports leg edema (bilateral ) and Reports dyspnea on exertion Resp Reports as per HPI and Reports dyspnea on exertion GI Reports no additional complaints Reports no additional complaints Musc Reports abnormal gait (Patient is non ambulatory, uses wide wheelchair) and Reports back pain Skin/Breast Reports system reviewed and no additional complaints, except as documented Neuro Reports abnormal gait (Patient is non ambulatory, uses wide wheelchair) Psych Reports no additional complaints Physical Exam Const General: no acute distress (But short of breath during conversation), alert and awake Orientation/consciousness: patient oriented x3 HEENT Head: Yes normal to inspection General nose exam: No nasal polyps present and No nasal discharge present Face and sinus: Yes sinuses nontender Mouth: oropharynx normal Teeth and gingiva: other (THROAT IS NARROW, BUT THERE IS NO EVIDENCE OF INFECTION AND ALSO NO THRUSH.) Throat: Yes posterior oropharynx normal Eyes General: appearance normal, both eyes and all related structures Neck Neck: Yes normal visual inspection, Yes no lymphadenopathy, Yes trachea midline and Yes no JVD Thyroid: Thyroid normal Chest Chest palpation & inspection: normal inspection of the chest, normal palpation of entire chest wall and no tenderness Resp Other: Percussion note not perceptible over the lower have some of the chest. Breath sounds are slightly decreased over both lower lobes. No wheezes or creps are heard . Cardio Palpation: normal PMI Rate: regular rate Rhythm: abnormal rhythm (Atrial fibrillation) Heart sounds: no gallops and no murmurs GI Palpation (GI): Soft to palpation, nontender, No hepatosplenomegaly present, no masses and Other GI palpation findings present (Abdomen is extremely obese and protuberant) Auscultation: normal bowel sounds Back/Spine/Pelvis Thoracic/Lumbar Spine: thoracic and lumbar spine normal to inspection and thoraco-lumbar ROM limited Skin General skin exam: no rashes or lesions noted and induration (Left leg) Neuro General: patient oriented x3, No gait normal (Non ambulatory) and no focal motor deficits Cranial nerves: Yes CN's II-XII intact bilaterally Extrem General: Yes normal to inspection, Yes no calf tenderness, Yes edema (only minimal edema of legs ) and Yes venous stasis dermatitis (of both legs ) Psych Appearance: grossly normal Speech and movement: Normal speech and movement present Assessment & Plan Assessment & Plan (1) COPD (chronic obstructive pulmonary disease): Comment: PER PULMONARY FUNCTION TEST HE DOES NOT HAVE ANY SIGNIFICANT OBSTRUCTIVE DISORDER, BUT CLINICALLY HE HAS FREQUENT COUGH AND SHORTNESS OF BREATH, WHICH ARE CONTROLLED WITH SPIRIVA RESPIMAT 2 INH DAILY . Code(s): J44.9 - Chronic obstructive pulmonary disease, unspecified Category: Medical Qualifiers: COPD type: COPD with acute exacerbation Qualified Code(s): J44.1 - Chronic obstructive pulmonary disease with (acute) exacerbation Plan: CONTINUE SPIRIVA RESPIMAT 2 INHALATIONS DAILY IPRATROPIUM-ALBUTEROL IN THE NEBULIZER 3 TIMES A DAY ALBUTEROL HFA OR ALBUTEROL VIA NEBULIZER Q 4-6 HOURS ONLY P.R.N.. (2) Restrictive lung disease: Comment: Clinically he has significant restrictive pulmonary disorder due to his morbid obesity, And pulmonary fibrosis is in the lower lobes. Code(s): J98.4 - Other disorders of lung Category: Medical Plan: ADVISED TO DO DEEP BREATHING EXERCISES WITH THE INCENTIVE SPIROMETER 3 TIMES A DAY REGULARLY. TODAY I TAUGHT HIM TO DO DEEP BREATHING EXERCISES WITH PURSED LIP TECHNIQUE. .HE UNDERSTOOD WELL I ADVISED HIM TO DO BREATHING EXERCISES EVERY 2 HOURS WHILE AWAKE. (3) Morbid obesity: Comment: This gentleman is morbidly obese, especially with abdominal and truncal obesity. He denies symptoms of obstructive sleep apnea. Code(s): E66.01 - Morbid (severe) obesity due to excess calories Category: Medical Plan: Weight reduction discussed . As noted on previous visits for practical purposes it is very difficult for him to lose weight. (4) Hypoventilation syndrome: Comment: HE HAS CLINICAL FEATURES AND CONFIRMED BY VENOUS BLOOD GASES THAT HE SUFFERS FROM CHRONIC HYPOVENTILATION SYNDROME/RESPIRATORY FAILURE. EXPLAINED TO HIM. WILL REPEAT VENOUS BLOOD GAS STUDY TODAY AND ALSO ELECTROLYTES. Code(s): R06.89 - Other abnormalities of breathing Category: Medical Plan: IF HIS PCO2 IS ELEVATED HE I MAY TRY TO TREAT HIM WITH THE ACETAZOLAMIDE AND DEEP BREATHING EXERCISES IF THAT DOES NOT IMPROVE HIS CONDITION THEN HE WILL BE A GOOD CANDIDATE FOR BIPAP TREATMENT AT NIGHT (5) Respiratory failure with hypoxia and hypercapnia: Comment: HE HAS HYPOXEMIA WELL HYPERCAPNIA, SECONDARY TO HYPOVENTILATION NOTED ABOVE. Code(s): J96.91 - Respiratory failure, unspecified with hypoxia; J96.92 - Respiratory failure, unspecified with hypercapnia Category: Medical Plan: SEE UNDER HYPOVENTILATION SYNDROME Orders: Orders Venous Blood Gas Today J44.1 - Chronic obstructive pulmonary disease with (acute) exacerbation, J96.91 - Respiratory failure, unspecified with hypoxia, J96.92 - Respiratory failure, unspecified with hypercapnia, R06.89 - Other abnormalities of breathing Electrolytes Today J96.91 - Respiratory failure, unspecified with hypoxia, J96.92 - Respiratory failure, unspecified with hypercapnia, R06.89 - Other abnormalities of breathing Coding Level of Care Code Est Pt Level 4 (49912) Diagnoses COPD (chronic obstructive pulmonary disease) J44.1 COPD type: COPD with acute exacerbation Restrictive lung disease J98.4 Morbid obesity E66.01 Hypoventilation syndrome R06.89 Respiratory failure with hypoxia and hypercapnia J96.91; J96.92
== END 2024-02-09 14:00 | disposition home or self-care (01) ==
PROVIDERS: PCP Internal Medicine; Visit Provider Internal Medicine
DX: J44.1 Chronic obstructive pulmonary disease with (acute) exacerbation (principal); J98.4 Other disorders of lung; E66.01 Morbid (severe) obesity due to excess calories; R06.89 Other abnormalities of breathing; J96.91 Respiratory failure, unspecified with hypoxia; J96.92 Respiratory failure, unspecified with hypercapnia
CPT/HCPCS: 99214

== ENCOUNTER 2024-02-09 13:30 | Outpatient (REF) | payer MEDICARE, SELFPAY ==
[2024-02-09 14:19] LABS: Venous Blood Gas Refer to POC result
[2024-02-09 14:20] LABS: VBG Base Excess 36.5 mmol/L; VBG pCO2 92 mmHg; VBG pH 7.46 (7.32-7.43); VBG pO2 26 mmHg
[2024-02-09 14:21] LABS: VBG HCO3 67 mmol/L (22-26)
[2024-02-09 14:51] LABS: Anion Gap 16 (12-20); Carbon Dioxide 49 mmol/L (22-29); Chloride 81 mmol/L (96-108); Potassium 4.6 mmol/L (3.3-5.1); Sodium 141 mmol/L (135-145)
== END 2024-02-09 13:31 | disposition home or self-care (01) ==
LOC: HO.LAB 13:30
PROVIDERS: PCP Internal Medicine; Visit Provider Internal Medicine
DX: J44.1 Chronic obstructive pulmonary disease with (acute) exacerbation (principal); J98.4 Other disorders of lung; E66.01 Morbid (severe) obesity due to excess calories; R06.89 Other abnormalities of breathing; J96.91 Respiratory failure, unspecified with hypoxia; J96.92 Respiratory failure, unspecified with hypercapnia; Z99.81 Dependence on supplemental oxygen
CPT/HCPCS: 36415; 80051; 82803; 99212

== ENCOUNTER 2024-02-27 12:39 | Emergency (ER) | payer MEDICARE, SELFPAY ==
[2024-02-27] VITALS (9 sets, daily range): BP systolic 114–131; BP diastolic 47–69; PULSE 58–92; RESP 6–22; TEMP 36.4–36.7; O2SAT 87–97; BMI 38.0
--- NOTE | 2024-02-27 | ECG_ITS ---
Test Reason : WEAKNESS Blood Pressure : / mmHG Vent. Rate : 065 BPM Atrial Rate : 000 BPM P-R Int : 000 ms QRS Dur : 132 ms QT Int : 374 ms P-R-T Axes : 000 -45 120 degrees QTc Int : 388 ms Atrial fibrillation with occasional ventricular-paced complexes Left axis deviation Left ventricular hypertrophy with QRS widening ( R in aVL , Sly product ) T wave abnormality, consider lateral ischemia Abnormal ECG When compared with ECG of 02-FEB-2024 22:59, No significant changes seen Referred By: Generic ED Physician Electronically Signed By:ELENITA GORE MD
--- NOTE | ~2024-02-27 | XR_ITS ---
EXAMINATION: XR CHEST CLINICAL INFORMATION: Shortness of breath COMPARISON: Previous chest x-ray January 2024 TECHNIQUE: Frontal view of the chest was obtained. FINDINGS: Left subclavian dual-chamber pacemaker with leads projecting over the right atrium and right ventricle. The cardiac silhouette is enlarged. There is pulmonary venous redistribution and increased central markings questionable for mild pulmonary edema. Lungs otherwise clear. No pleural effusion or pneumothorax. XR/XR chest 1V IMPRESSION: Enlarged cardiac silhouette and increased lung markings questionable for mild pulmonary edema.
[2024-02-27 13:15] LABS: MANUAL DIFF FLAG NO
[2024-02-27 13:26] LABS: Basophils Percent Auto 0.2 % (0-2); Eosinophils Absolute Auto 0.2 X10*3/uL (0.0-0.4); Eosinophils Percent Auto 2.1 % (0-4); Hematocrit 34.6 % (42.0-52.0); Hemoglobin 10.5 g/dl (14.0-18.0); Imm Gran Abs Auto 0.13 X10*3/uL (0.00-0.03); Imm Gran Pct Auto 1.4 % (0.0-0.4); Lymphocytes Absolute Auto 1.1 X10*3/uL (1.2-4.9); Lymphocytes Percent Auto 11.7 % (20-40); Mean Corpuscular HGB Conc 30.3 g/dl (31.0-36.0); Mean Corpuscular Hemoglobin 31.2 pg (27.0-33.0); Mean Corpuscular Volume 102.7 fL (80.0-98.0); Monocytes Absolute Auto 0.7 X10*3/uL (0.1-1.2); Neutrophils Absolute Auto 7.4 x10*3/uL (2.0-8.3); Neutrophils Percent Auto 77.6 % (45-73); Platelet Count 202 X10*3/uL (160-400); Red Blood Count 3.37 X10*6/uL (4.60-5.80); Red Cell Distribution Width 15.8 % (11.0-16.0); White Blood Count 9.6 X10*3/uL (4.8-10.8)
[2024-02-27 13:37] LABS: Troponin-I High Sensitivity 44.9 ng/L (<3.5-35.0)
[2024-02-27 13:47] LABS: Alanine Aminotransferase 9 U/L (0-40); Albumin Level 2.9 g/dL (3.5-5.0); Alkaline Phosphatase 150 U/L (39-117); Anion Gap 7 (12-20); Aspartate Amino Transferase 23 U/L (5-37); Bilirubin Total 0.6 mg/dL (0.0-1.0); Blood Urea Nitrogen 19 mg/dL (9-16); Calcium 9.5 mg/dL (8.4-10.2); Carbon Dioxide 51 mmol/L (22-29); Chloride 86 mmol/L (96-108); Creatinine Clr Calc Pharmacy 71.5; Estimated Glomerular Filt Rate > 60; Glucose Random 114 mg/dL (60-115); Potassium 3.2 mmol/L (3.3-5.1); Sodium 142 mmol/L (135-145); Total Protein 7.3 g/dL (6.5-8.0)
[2024-02-27 13:54] LABS: Influenza A PCR NEGATIVE (Negative); Influenza B PCR NEGATIVE (Negative); Resp Syncy Virus RNA Qual PCR NEGATIVE (Negative); SARS COV2 PCR INHOUSE NEGATIVE (Negative)
[2024-02-27 14:14] LABS: Venous Blood Gas Refer to POC result
[2024-02-27 14:15] LABS: VBG Base Excess 27.6 mmol/L; VBG HCO3 57 mmol/L (22-26); VBG pCO2 83 mmHg; VBG pH 7.44 (7.32-7.43); VBG pO2 35 mmHg
--- NOTE | 2024-02-27 14:31 | ED.GENADULT ---
HPI - General Adult General Chief complaint: Failure to Thrive Stated complaint: GEN WEAKNESS AND FTT PER EMS Time Seen by Provider: 02/27/24 13:53 Source: patient Mode of arrival: ambulatory Limitations: no limitations History of Present Illness HPI narrative: This is a 78-year-old man with a past medical history of hep F, LD with chronic respiratory failure with hypoxia on 1 L at home, paroxysmal atrial fibrillation who was brought in by EMS with family requesting placement. Patient family present at time of history and exam. Patient states he has felt increasingly weak over the last several months. Patient states difficulty ambulating. He states he is always short of breath and this has not change. He states he has a chronic cough and states no change to frequency or sputum production. He states no fevers, chills or chest pain. He states no hemoptysis. He states no recent fall, head strike or trauma. He states no abdominal pain, nausea/vomiting, dysuria or urinary frequency/urgency. He states no back pain. Family states he was constipated, but states that he then had a large bowel movement earlier this week. He states passing flatus. He states no melena or hematochezia. Family states he has had difficulty ambulating and spends most of his time sitting in a recliner. Family states it takes at least 3 people to get him out of bed. Family states they do not have any visiting nurses. Related Data Home Medications ?Medication ?Instructions ?Recorded ?Confirmed allopurinol 100 mg tablet 200 mg PO BEDTIME 07/25/20 02/27/24 atorvastatin 20 mg tablet 20 mg PO DAILY 06/06/21 02/27/24 Previous Rx's ?Medication ?Instructions ?Recorded commode (bedside commode) #1 ea 12/03/21 walker (Ultra-Light Rollator [facility] [place]) #1 ea 12/03/21 bumetanide 1 mg tablet 1 mg PO DAILY #30 tabs 10/07/23 metoprolol succinate 50 mg 50 mg PO DAILY #30 tabs 12/02/23 tablet,extended release 24 hr Spiriva Respimat 2.5 mcg/actuation 2 puff PO DAILY #4 grams 01/09/24 solution for inhalation (tiotropium bromide) rivaroxaban 20 mg tablet (Xarelto) 20 mg PO DAILY #90 tabs 02/04/24 acetazolamide 250 mg tablet 250 mg PO BID Respiratory failure 02/09/24 30 days #60 tabs Allergies Allergy/AdvReac Type Severity Reaction Status Date / Time No Known Allergies Allergy Verified 02/27/24 12:56 [No Known Allergies*] Review of Systems Review of Systems: ROS as per HPI [facility] Past Medical History Medical History (Updated 02/27/24 @ 21:10 by Amadeo Carey MD) Respiratory failure with hypoxia and hypercapnia Hypoventilation syndrome Persistent atrial fibrillation Paroxysmal atrial fibrillation Fatigue COPD (chronic obstructive pulmonary disease) Hypoxemia requiring supplemental oxygen Restrictive lung disease Morbid obesity Chronic heart failure with preserved ejection fraction (HFpEF) Interstitial lung disease Pacemaker (~2021) Pulmonary fibrosis First degree AV block Chronic hyponatremia CHF (congestive heart failure) Atrial fibrillation with slow ventricular response COPD (chronic obstructive pulmonary disease) Restrictive lung disease Hypoxemia Morbid obesity IPF (idiopathic pulmonary fibrosis) Aortic stenosis CKD (chronic kidney disease) HTN (hypertension) Surgical History History of pacemaker (~2021) History of surgery on wrist Family History Family History Father Cancer Mother Dementia Social History Social History Household Members: Spouse Housing: House Do you presently have visiting nurse or other home services: No Alcohol intake: never Patient Tobacco Use Status: Never used Tobacco Smoked in Last 30 Days: No Use of substances other than those prescribed or required for medical reasons: No Advance Directives: Yes Advance Directives on File: Yes Advance Directives Date on File: 06/08/21 Do you have a plan to hurt others: No Plan service: No Current occupational status: retired Physical Exam ED Vital Signs: Vital Signs - 24 hr 02/27/24 12:47 02/27/24 13:56 02/27/24 14:55 Temperature 97.8 F 98.1 F Pulse Rate 72 58 Respiratory Rate 22 H 20 Blood Pressure 117/63 129/47 L Pulse Oximetry 92 93 92 Oxygen Delivery Method Nasal Cannula Nasal Cannula Nasal Cannula Oxygen Flow Rate 4 02/27/24 15:11 02/27/24 15:24 02/27/24 16:42 Temperature 97.8 F Pulse Rate 75 65 Respiratory Rate 6 L 17 19 Blood Pressure 121/50 L 131/55 L Pulse Oximetry 97 87 L Oxygen Delivery Method Nasal Cannula Nasal Cannula Oxygen Flow Rate 4 4 02/27/24 17:06 02/27/24 17:48 Temperature Pulse Rate 83 Respiratory Rate 20 Blood Pressure 118/59 L 114/65 Pulse Oximetry 90 L Oxygen Delivery Method Nasal Cannula Oxygen Flow Rate 4 BMI result Body Mass Index 38.0 Gen: NAD, AOx3 HEENT: NCAT, EOMI, normal conjunctiva CV: RRR Pulm: Scattered bilateral expiratory wheezes, no increased work of breathing or respiratory distress GI: Soft, NTND, no rebound, guarding or rigidity Neuro: Grossly non focal Medications Administered Generic Name Dose Route Start Last Admin Trade Name Freq PRN Reason Stop Dose Admin Rivaroxaban 20 mg 02/27/24 19:00 02/27/24 19:10 Rivaroxaban 20 Mg Tablet PO 20 mg DAILY@1700 MARIFER Administration Discontinued Medications Generic Name Dose Route Start Last Admin Trade Name Freq PRN Reason Stop Dose Admin Albuterol/Ipratropium 3 ml 02/27/24 14:58 02/27/24 15:01 Albuterol/Iprat 2.5/0.5mg 3 Ml Ampul.Neb INHALE 02/27/24 14:59 3 ml ONCE ONE Administration Bumetanide 1 mg 02/27/24 15:43 02/27/24 17:06 Bumetanide 1 Mg/4 Ml Vial IVPUSH 02/27/24 15:44 1 mg ONCE ONE Administration Protocol Potassium Chloride 40 meq 02/27/24 14:56 02/27/24 15:03 Potassium Chloride Er 20 Meq Tab.Er.Prt PO 02/27/24 14:57 40 meq ONCE ONE Administration Medical Decision Making Medical Decision Making [facility] Narrative: Differential diagnosis includes, but is not limited to Patient is afebrile and hemodynamically stable on room air. Exam is benign and reassuring. I reviewed and interpreted labs. There is mild hypokalemia with potassium 3.2, which is repleted. Of note, patient is at baseline anemia with hemoglobin 10.5 (previous 9.6). Troponin is elevated at 44.9 albeit 2 hour troponin 43.3, which is reassuring. This is likely demand ischemia. Very low suspicion for ACS given no chest pain and reassuring EKG. I reviewed and interpreted EKG, which is unremarkable for any acute findings. Diagnostic imaging with enlarged cardiac silhouette and increased lung markings questionable for mild pulmonary edema. On re-examination at 3:44 p.m., patient reports feeling well patient and family state that he did not take his Bumex prior to coming to the emergency room. Given questionable findings for mild pulmonary edema. Will provide patient with 1 mg IV Bumex while here in the ED and awaiting physical therapy and case management consultation. Care is transitioned to Dr. Marilyn Bergman at 2100 with disposition pending reevaluation as well as physical therapy and case management consultations. Admission/Observation Consideration of admission/observation: Escalation of care including admission/observation considered Lab Data MDM Lab Attestation statement: I reviewed the patient's lab results. 02/27/24 13:11 02/27/24 13:11 Labs: Lab Results 02/27/24 02/27/24 02/27/24 Range/Units 13:11 14:07 15:23 WBC 9.6 (4.8-10.8) X10*3/uL RBC 3.37 L (4.60-5.80) X10*6/uL Hgb 10.5 L (14.0-18.0) g/dl Hct 34.6 L (42.0-52.0) % MCV 102.7 H (80.0-98.0) fL MCH 31.2 (27.0-33.0) pg MCHC 30.3 L (31.0-36.0) g/dl RDW 15.8 (11.0-16.0) % Plt Count 202 (160-400) X10*3/uL MPV 11.0 (9.4-12.4) fL Immature Gran % (Auto) 1.4 H (0.0-0.4) % Neut % (Auto) 77.6 H (45-73) % Lymph % (Auto) 11.7 L (20-40) % [place] % (Auto) 7.0 (2-11) % Eos % (Auto) 2.1 (0-4) % Baso % (Auto) 0.2 (0-2) % Lymph # (Auto) 1.1 L (1.2-4.9) X10*3/uL [place] # (Auto) 0.7 (0.1-1.2) X10*3/uL Eos # (Auto) 0.2 (0.0-0.4) X10*3/uL Baso # (Auto) 0.0 (0.0-0.2) X10*3/uL Abs Immat Gran (auto) 0.13 H (0.00-0.03) X10*3/uL Absolute Neuts (auto) 7.4 (2.0-8.3) x10*3/uL Absolute Nucleated RBC 0.000 (0.0-0.012) X10*3/uL Nucleated RBC % (auto) 0.0 (0.0-0.2) /100WBC VBG pH 7.44 H (7.32-7.43) VBG pCO2 83 mmHg VBG pO2 35 mmHg VBG HCO3 57 H (22-26) mmol/L VBG O2 Saturation 72.0 % VBG Base Excess 27.6 mmol/L Sodium 142 (135-145) mmol/L Potassium 3.2 L D (3.3-5.1) mmol/L Chloride 86 L (96-108) mmol/L Carbon Dioxide 51 H* (22-29) mmol/L Anion Gap 7 L (12-20) BUN 19 H (9-16) mg/dL Creatinine 1.04 (0.5-1.4) mg/dL Estim Creat Clear Calc 71.5 Estimated GFR > 60 Random Glucose 114 (60-115) mg/dL Calcium 9.5 (8.4-10.2) mg/dL Total Bilirubin 0.6 (0.0-1.0) mg/dL AST 23 (5-37) U/L ALT 9 (0-40) U/L Alkaline Phosphatase 150 H (39-117) U/L Troponin I High Sens 44.9 H D 43.3 H (<3.5-35.0) ng/L Total Protein 7.3 (6.5-8.0) g/dL Albumin 2.9 L (3.5-5.0) g/dL Urine Color Urine Appearance Urine pH (5.0-9.0) Ur Specific [place] (1.005-1.025) Urine Protein (Neg-Trace) mg/dL Urine Glucose (UA) (Negative) mg/dL Urine Ketones (Negative) mg/dL Urine Blood (Negative) Urine Nitrite (Negative) Ur Leukocyte Esterase (Negative) Urine RBC (0-2) /HPF Urine WBC (0-5) /HPF Ur Squamous Epith Cells (0-2) /HPF Urine Bacteria (None Seen) Hyaline Casts (0-2) /LPF Influenza Type A (PCR) NEGATIVE (Negative) Influenza Type B (PCR) NEGATIVE (Negative) RSV RNA Qual (PCR) NEGATIVE (Negative) SARS-CoV-2 RNA (RT-PCR) NEGATIVE (Negative) 02/27/24 Range/Units 17:36 WBC (4.8-10.8) X10*3/uL RBC (4.60-5.80) X10*6/uL Hgb (14.0-18.0) g/dl Hct (42.0-52.0) % MCV (80.0-98.0) fL MCH (27.0-33.0) pg MCHC (31.0-36.0) g/dl RDW (11.0-16.0) % Plt Count (160-400) X10*3/uL MPV (9.4-12.4) fL Immature Gran % (Auto) (0.0-0.4) % Neut % (Auto) (45-73) % Lymph % (Auto) (20-40) % [place] % (Auto) (2-11) % Eos % (Auto) (0-4) % Baso % (Auto) (0-2) % Lymph # (Auto) (1.2-4.9) X10*3/uL [place] # (Auto) (0.1-1.2) X10*3/uL Eos # (Auto) (0.0-0.4) X10*3/uL Baso # (Auto) (0.0-0.2) X10*3/uL Abs Immat Gran (auto) (0.00-0.03) X10*3/uL Absolute Neuts (auto) (2.0-8.3) x10*3/uL Absolute Nucleated RBC (0.0-0.012) X10*3/uL Nucleated RBC % (auto) (0.0-0.2) /100WBC VBG pH (7.32-7.43) VBG pCO2 mmHg VBG pO2 mmHg VBG HCO3 (22-26) mmol/L VBG O2 Saturation % VBG Base Excess mmol/L Sodium (135-145) mmol/L Potassium (3.3-5.1) mmol/L Chloride (96-108) mmol/L Carbon Dioxide (22-29) mmol/L Anion Gap (12-20) BUN (9-16) mg/dL Creatinine (0.5-1.4) mg/dL Estim Creat Clear Calc Estimated GFR Random Glucose (60-115) mg/dL Calcium (8.4-10.2) mg/dL Total Bilirubin (0.0-1.0) mg/dL AST (5-37) U/L ALT (0-40) U/L Alkaline Phosphatase (39-117) U/L Troponin I High Sens (<3.5-35.0) ng/L Total Protein (6.5-8.0) g/dL Albumin (3.5-5.0) g/dL Urine Color Dark Yellow Urine Appearance Clear Urine pH >= 9.0 (5.0-9.0) Ur Specific [place] 1.015 (1.005-1.025) Urine Protein 100 (2+) H (Neg-Trace) mg/dL Urine Glucose (UA) Negative (Negative) mg/dL Urine Ketones Negative (Negative) mg/dL Urine Blood Negative (Negative) Urine Nitrite Negative (Negative) Ur Leukocyte Esterase Negative (Negative) Urine RBC 0-2 (0-2) /HPF Urine WBC 0-5 (0-5) /HPF Ur Squamous Epith Cells 0-2 (0-2) /HPF Urine Bacteria None Seen (None Seen) Hyaline Casts 0-2 (0-2) /LPF Influenza Type A (PCR) (Negative) Influenza Type B (PCR) (Negative) RSV RNA Qual (PCR) (Negative) SARS-CoV-2 RNA (RT-PCR) (Negative) Independent Interpretation I performed an independent interpretation of an: EKG Interpretation: EKG demonstrates atrial fibrillation at 65 beats per minute, QRS 132, QTC 388, T-wave flattening in leads V4-V6, no STEMI (compared to prior EKG February 02, 2024 there are no diagnostic ischemic changes) Radiology Impression Discussion of test interpretation with radiology: I have reviewed the radiologist's reading. Radiologist Impression: IMPRESSION: Enlarged cardiac silhouette and increased lung markings questionable for mild pulmonary edema. Dictated By: Tasha Rosas MD Signed By: <Electronically signed by Tasha Rosas MD in OV> 02/27/24 0833 Discharge Plan Discharge Clinical Impression: Adult failure to thrive, Chronic hypoxemic respiratory failure, Hypokalemia, Elevated troponin Patient Disposition: Still a Patient Prescriptions: No Action bumetanide 1 mg tablet 1 mg PO DAILY Qty: 30 4RF Protocol: Hold for SBP< HOLD for SBP < : 90 metoprolol succinate 50 mg tablet extended release 24 hr 50 mg PO DAILY Qty: 30 6RF Spiriva Respimat 2.5 mcg/actuation mist 2 puff PO DAILY Qty: 4 3RF Xarelto 20 mg tablet 20 mg PO DAILY Qty: 90 1RF Rx Instructions: must administer with evening meal atorvastatin 20 mg tablet 20 mg PO DAILY (DME) bedside commode Kit See Rx Instructions .Route Qty: 1 0RF Rx Instructions: As directed (DME) Ultra-Light Rollator Misc See Rx Instructions .Route Qty: 1 0RF Rx Instructions: As directed allopurinol 100 mg tablet 200 mg PO BEDTIME acetazolamide 250 mg tablet 250 mg PO BID 30 Days Qty: 60 2RF Rx Instructions: take on tablet twice daily for 30 days - medication started 02/09/24. Print Language: Armenian
[2024-02-27] MEDS: Albuterol/Iprat 2.5/0.5MG 3 ML AMPUL.NEB INHALE (15:01)
[2024-02-27] MEDS: Potassium Chloride ER 20 MEQ TAB.ER.PRT 40 MEQ PO (15:03)
[2024-02-27 15:50] LABS: Troponin-I High Sensitivity 43.3 ng/L (<3.5-35.0)
[2024-02-27] MEDS: Bumetanide 1 MG/4 ML VIAL IVPUSH (17:06)
--- NOTE | 2024-02-27 17:47 | MHC.EDTECH ---
pt changed over to hospital bed
[2024-02-27 17:59] LABS: Appearance Urine Clear; Color Urine Dark Yellow; Glucose Urine UA Negative (Negative); Leukocyte Esterase Urine Negative (Negative); Nitrite Urine Negative (Negative); PH >= 9.0 (5.0-9.0); Specific Gravity - Urine 1.015 (1.005-1.025); UMIC TRIGGER UACC YES; Urine Blood Negative (Negative); Urine Ketones Negative (Negative); Urine Protein 100 (2+) mg/dL (Neg-Trace)
--- NOTE | 2024-02-27 18:24 | PHA.MEDREC ---
Pharmacy Consult ? Medication Reconciliation Pharmacy has completed the medication reconciliation. Spoke with patient he stated his [place] brought a list in. I got the list from his folder and called to confirm his last doses at home.
--- NOTE | 2024-02-27 18:37 | MHC.CM.ED ---
Addendum entered by Angelique Hobbs 02/27/24 18:45: CM did speak with patient and family regarding home VNA/PT services if not offered an acute rehab bed. Pt has no funds for STR. Original Note: Cm met with patient at the request of Dr. Carey. /HCP [place] ([phone]) and DIL present. Pt is alert and oriented x4. Pt lives with his . Sleeps in his recliner. Uses Oxygen at 4/L continuous; provided by [facility]. Has a walker, rollator, wheelchair and a scooter. Has a shower chair. Pt has no services. HCP is on file. PCP was verified. Pt was active, able to ambulate short distances and complete ADL's until about 6 months ago. Pt has progressively gotten weaker and has gotten to the point that he has been chair bound. Pt understands that he is deeply deconditioned and needs to move and regain some mobility so he can remain at home. Awaiting PT evaluation. Referrals to Acute Rehabs hav been made. Will refer to [facility]. Pamphlets given for [facility] and [facility] financial services for possible assistance with MH application in the future. is unsure if they will qualify. They have no funds for home help. given written plan of care at her request. CM will follow for discharge planning.
[2024-02-27 19:07] LABS: Bacteria Urine None Seen (None Seen); Hyaline Casts Urine 0-2 /LPF (0-2); RBC Urine 0-2 /HPF (0-2); Squamous Epithelial Cell Urine 0-2 /HPF (0-2); WBC Urine 0-5 /HPF (0-5)
[2024-02-27] MEDS: Rivaroxaban 20 MG TABLET PO (19:10)
--- NOTE | 2024-02-27 19:17 | PC.NURSE ---
Pt ca&ox3, no signs of distress. Pt sitting up in bed eating dinner. Pt medicated per nov. Pt denies pain at this time. Plan of care ongoing.
--- NOTE | 2024-02-27 19:22 | PC.NURSE ---
This RN assumed pt care @ 1900.
--- NOTE | 2024-02-27 19:32 | PC.NURSE ---
Pt requested and room curtain opened all the way, lights turned, and bedside table moved. Meal tray removed. Pt ate 100% of dinner. Plan of care ongoing.
--- NOTE | 2024-02-27 21:36 | PC.NURSE ---
Pharmacy called spoke with Kelsey for diamox, med not in pyxis. Plan of care ongoing
[2024-02-27] MEDS: allopurinoL 100 MG TABLET 200 MG PO (22:00)
[2024-02-27] MEDS: acetaZOLAMIDE 250 MG TABLET PO (22:00)
--- NOTE | 2024-02-27 22:10 | PC.NURSE ---
Pt medicated per nov. Plan of care ongoing.
[2024-02-28] VITALS (7 sets, daily range): BP systolic 110–130; BP diastolic 47–64; PULSE 66–81; RESP 16–23; TEMP 36.2–36.8; O2SAT 92–97
[2024-02-28] MEDS: Tiotropium Bromide 2.5 mcg 1 PUFF/2.5 MCG MIST.INHAL 2 PUFF INHALE (08:07)
[2024-02-28] MEDS: Bumetanide 1 MG TABLET PO (08:57)
[2024-02-28] MEDS: acetaZOLAMIDE 250 MG TABLET PO ×2 (08:58→21:50)
[2024-02-28] MEDS: Metoprolol Succinate ER 50 MG TAB.ER.24H PO (08:58)
[2024-02-28] MEDS: Atorvastatin Calcium 20 MG TABLET PO (08:58)
--- NOTE | 2024-02-28 09:05 | PC.NURSE ---
alert and oriented, medicated per the MAR. patient resting quietly in room offering no complaints at this time. remains in hospital bed.
[2024-02-28] MEDS: Nystatin Powder 15 GM BOTTLE 1 APPL TOPICAL (12:00)
--- NOTE | 2024-02-28 16:11 | MHC.CM.ED ---
Addendum entered by Jaclyn Lassiter 02/29/24 07:56: Received telephone call from Ninfa. Patient is agreeable to rehab at [facility] if they are able to offer a bed. Patient is motivated to get stronger. Original Note: Patient remains in ER. Physical therapy eval completed. Short term rehab is recommended. [facility] not able to offer a bed. [facility] is waiting for PT note. Patient's [id number], Ninfa updated via telephone at [phone] and will update family. Patient is not sure he wants to go to rehab. He has slept in a recliner for over 10 years. He is not comfortable sleeping in a bed and feels he would be more comfortable going home. Ninfa aware and will speak to her [id number]. Continue to monitor for d/c needs.
[2024-02-28] MEDS: Rivaroxaban 20 MG TABLET PO (18:40)
[2024-02-28] MEDS: allopurinoL 100 MG TABLET 200 MG PO (21:50)
--- NOTE | 2024-02-28 23:20 | PC.NURSE ---
on license of [facility] cath placed
[2024-02-29 00:53] VITALS: BP 123/58; PULSE 81; RESP 20; O2SAT 96
--- NOTE | 2024-02-29 04:42 | PC.NURSE ---
pt asleep in recliner per request
[2024-02-29 06:52] VITALS: BP 130/69; PULSE 104; RESP 18; TEMP 36.9; O2SAT 96
[2024-02-29 08:42] VITALS: PULSE 80; RESP 18; O2SAT 96
[2024-02-29] MEDS: Tiotropium Bromide 2.5 mcg 1 PUFF/2.5 MCG MIST.INHAL 2 PUFF INHALE (08:42)
--- NOTE | 2024-02-29 09:24 | MHC.CM.ED ---
Patient remains in ER. [facility] is unable to offer a bed. Patient will go home with Leonela YEUNG for snf and physical therapy. Referral to [facility] already made by Dora BEARD booked for 10am. Patient, daughter in law Ocasio, Ryanne MENDEZ and Tish STREET aware. Continue to monitor for d/c needs.
[2024-02-29 11:01] VITALS: BP 126/67; PULSE 104; RESP 18; TEMP 36.9; O2SAT 95
== END 2024-02-29 11:03 | disposition home or self-care (01) ==
PROVIDERS: Emergency Provider Emergency Medicine; PCP Internal Medicine
DX: J96.11 Chronic respiratory failure with hypoxia (principal); R62.7 Adult failure to thrive; E87.6 Hypokalemia; I48.91 Unspecified atrial fibrillation; R79.89 Other specified abnormal findings of blood chemistry; R26.2 Difficulty in walking, not elsewhere classified; R11.0 Nausea; Z79.899 Other long term (current) drug therapy; Z03.818 Encounter for observation for suspected exposure to other biological agents ruled out
CPT/HCPCS: 0241U; 36415; 71045; 80053; 81001; 82803; 84484; 85025; 93005; 94640; 94664; 96374; 97162; 99285; J1939

== ENCOUNTER → 2024-02-27 13:04 | Outpatient (BNV) | payer MEDICARE, SELFPAY | PROVIDERS: Emergency Provider Emergency Medicine; PCP Internal Medicine; Visit Provider Internal Medicine Cardiovascular Disease | DX: R53.1 Weakness (principal); I48.91 Unspecified atrial fibrillation; R94.31 Abnormal electrocardiogram [ECG] [EKG] | CPT/HCPCS: 93010 ==

== ENCOUNTER 2024-03-03 11:38 | Emergency (ER) | payer MEDICARE, SELFPAY ==
--- NOTE | 2024-03-03 | ECG_ITS ---
Test Reason : WEAKNESS Blood Pressure : / mmHG Vent. Rate : 063 BPM Atrial Rate : 000 BPM P-R Int : 000 ms QRS Dur : 110 ms QT Int : 368 ms P-R-T Axes : 000 -42 098 degrees QTc Int : 376 ms Artifact in tracing Atrial fibrillation with occasional ventricular-paced complexes Left axis deviation Moderate voltage criteria for LVH, may be normal variant ( R in aVL , Sly product ) Nonspecific ST and T wave abnormality Abnormal ECG When compared with ECG of 27-FEB-2024 13:04, No significant changes seen Referred By: Generic ED Physician Electronically Signed By:GILL OSNG
--- NOTE | ~2024-03-03 | XR_ITS ---
EXAMINATION: XR CHEST CLINICAL INFORMATION: FTT COMPARISON: 03/03/2024 TECHNIQUE: 2 views of the chest were obtained. FINDINGS: EKG leads overlie the chest. Dual-lead left pectoral pacemaker appears unchanged. Cardiac silhouette is within normal limits in size for technique, unchanged as compared to prior. There is prominence of the central pulmonary vasculature. Chronic pleural parenchymal scarring is again noted. No appreciable pulmonary edema. No pleural effusion or pneumothorax. Bones are osteopenic. Degenerative disc disease in the thoracolumbar spine. Osteoarthritis is present in the acromioclavicular and glenohumeral joints. XR/XR chest 2V IMPRESSION: Prominence of the pulmonary vasculature which could be due to pulmonary arterial hypertension. Otherwise, no acute cardiac pulmonary findings..
[2024-03-03 11:52] VITALS: BP 142/76; BP 98/49; PULSE 62; PULSE 72; RESP 20; TEMP 36; O2SAT 92; O2SAT 97; BMI 42.6
[2024-03-03 11:57] VITALS: BP 96/51; PULSE 75; RESP 19; O2SAT 97
--- NOTE | 2024-03-03 12:47 | PC.NURSE ---
Pt presents to ED via EMS from home, reports increased general weakness, difficulty ambulating, poor PO intake and unable to take himself at home for past 6 months. Reports recent admission here at [facility] where he was offered rehab placement but declined, reports he would like rehab placement this time. Has home O2 at baseline 4L O2 for COPD. Denies CP, N/V/D, ABD pain, fevers. Alert and oriented, breathing labored w/ exertion or long periods of talking. Skin unkept, dry.
[2024-03-03 13:06] LABS: Alanine Aminotransferase 16 U/L (0-40); Albumin Level 2.8 g/dL (3.5-5.0); Alkaline Phosphatase 141 U/L (39-117); Anion Gap 8 (12-20); Aspartate Amino Transferase 26 U/L (5-37); Bilirubin Total 0.4 mg/dL (0.0-1.0); Blood Urea Nitrogen 16 mg/dL (9-16); Calcium 9.3 mg/dL (8.4-10.2); Chloride 89 mmol/L (96-108); Creatinine Clr Calc Pharmacy 82.3; Estimated Glomerular Filt Rate > 60; Glucose Random 121 mg/dL (60-115); Potassium 3.9 mmol/L (3.3-5.1); Sodium 139 mmol/L (135-145); Total Protein 7.1 g/dL (6.5-8.0)
[2024-03-03 13:14] LABS: Carbon Dioxide 46 mmol/L (22-29)
--- NOTE | 2024-03-03 14:08 | ED_ITS ---
HPI - General Adult General Chief complaint: Weakness Stated complaint: WEAK,UNABLE TO AMB/WT BEAR,FTT PER EMS Time Seen by Provider: 03/03/24 13:35 History of Present Illness ED Provider: Dr. Patel HPI narrative: 78 y/o M patient; PMH HFpEF, ILD with chronic respiratory failure on home O2, morbid obesity, paroxysmal atrial fibrillation on Xarelto; who presents from home reporting several months of failure to thrive. The patient is interested in a rehab placement due to generalized weakness and decreased ambulation. He states he was recommended to come to the emergency department by his family independence case manager today. He states at home he spends all of his time in his recliner. He pees in a bucket and often has incontinence of stool because he cannot get up due to his weakness. He denies any other acute medical complaints. Related Data Home Medications ?Medication ?Instructions ?Recorded ?Confirmed allopurinol 100 mg tablet 200 mg PO BEDTIME 07/25/20 02/27/24 atorvastatin 20 mg tablet 20 mg PO DAILY 06/06/21 02/27/24 Previous Rx's ?Medication ?Instructions ?Recorded commode (bedside commode) #1 ea 12/03/21 walker (Ultra-Light Rollator misc) #1 ea 12/03/21 bumetanide 1 mg tablet 1 mg PO DAILY #30 tabs 10/07/23 metoprolol succinate 50 mg 50 mg PO DAILY #30 tabs 12/02/23 tablet,extended release 24 hr Spiriva Respimat 2.5 mcg/actuation 2 puff PO DAILY #4 grams 01/09/24 solution for inhalation (tiotropium bromide) rivaroxaban 20 mg tablet (Xarelto) 20 mg PO DAILY #90 tabs 02/04/24 acetazolamide 250 mg tablet 250 mg PO BID Respiratory failure 02/09/24 30 days #60 tabs Allergies Allergy/AdvReac Type Severity Reaction Status Date / Time No Known Allergies Allergy Verified 03/03/24 11:54 [No Known Allergies*] Review of Systems 2 Review of Systems: Yes all other systems are reviewed and are negative Neurologic: Denies Abnormal speech present and Denies Sensory deficit (Neuro) PMFSH Past Medical History Attestation statement: The following information was validated with the patient. Source: old records reviewed Medical History Respiratory failure with hypoxia and hypercapnia Hypoventilation syndrome Persistent atrial fibrillation Paroxysmal atrial fibrillation Fatigue COPD (chronic obstructive pulmonary disease) Hypoxemia requiring supplemental oxygen Restrictive lung disease Morbid obesity Chronic heart failure with preserved ejection fraction (HFpEF) Interstitial lung disease Pacemaker (~2021) Pulmonary fibrosis First degree AV block Chronic hyponatremia CHF (congestive heart failure) Atrial fibrillation with slow ventricular response COPD (chronic obstructive pulmonary disease) Restrictive lung disease Hypoxemia Morbid obesity IPF (idiopathic pulmonary fibrosis) Aortic stenosis CKD (chronic kidney disease) HTN (hypertension) Surgical History History of pacemaker (~2021) History of surgery on wrist Family History Family History Father Cancer Mother Dementia Social History Social History Household Members: Spouse Housing: House Do you presently have visiting nurse or other home services: No Alcohol intake: never Patient Tobacco Use Status: Never used Tobacco Smoked in Last 30 Days: No Use of substances other than those prescribed or required for medical reasons: No Advance Directives: Yes Advance Directives on File: Yes Advance Directives Date on File: 06/08/21 service: No Current occupational status: retired Physical Exam ED Vital Signs: Vital Signs - 24 hr 03/03/24 11:52 03/03/24 11:57 03/03/24 15:06 Temperature 96.8 F Pulse Rate 72 75 75 Respiratory Rate 20 19 Blood Pressure 98/49 L 96/51 L 96/51 L Pulse Oximetry 97 97 97 Oxygen Delivery Method Nasal Cannula Nasal Cannula Oxygen Flow Rate 4 03/03/24 17:00 Temperature 97.8 F Pulse Rate 89 Respiratory Rate 16 Blood Pressure 123/73 Pulse Oximetry 97 Oxygen Delivery Method Nasal Cannula Oxygen Flow Rate 4 BMI result Body Mass Index 42.6 Patient is afebrile and hemodynamically stable on home 4L NC. Const General: cooperative Orientation/consciousness: patient oriented x3 HENMT Head: Yes normal to inspection and Yes atraumatic Eyes General: appearance normal, both eyes and all related structures Pupils: Equal, round and reactive pupils present EOM: EOMs intact bilaterally Neck Neck: Yes normal visual inspection, Yes full ROM, Yes supple and No tender Chest Chest palpation & inspection: normal inspection of the chest and normal palpation of entire chest wall Resp Effort & Inspection: normal respiratory effort, able to speak in complete sentences, no cough and no respiratory distress Auscultation: clear to auscultation bilaterally Cardio Rate: regular rate Rhythm: regular rhythm GI Other: Obese Inspection: No Abdominal wall edema and No distended Palpation (GI): Soft to palpation, not firm, nontender, no guarding and not rigid Auscultation: normal bowel sounds Back/Spine/Pelvis Other: Non-tender without decubitus ulceration Neuro General: patient oriented x3 Cranial nerves: Yes Equal, round and reactive pupils present Cognition (Neuro): normal cognition Speech: No Abnormal speech present Motor exam (neuro): Other motor observations present (strength 4/4 upper and lower extremities bilaterally ) Sensory Exam: No Sensory deficit (Neuro) Course Course Course Narrative: Patient is afebrile and hemodynamically stable. Interested in rehab placement for failure to thrive. Ordered coordinated care and physical therapy evaluations. Regular diet requested. Ordered screening EKG, labs, and CXR. Reevaluation(s) Reevaluation #1: CXR unremarkable. Laboratory studies reviewed. Baseline anemia. Baseline elevated bicarb. Baseline low chloride. Troponin 24.1, less than 43.3 on prior ED visit 02/27/2024. Repeat troponin remains flat. Low albumin 2.8. TSH 1.63. Pending coordinated care and physical therapy recommendations at this time. Patient voluntarily requesting urinary jarquin. Explained to patient that unless he is retaining urine we cannot place a jarquin due to risk versus benefits specifically of infection. Patient is able to sit and urinate. Plan: Transition care to Dr. Lr pending coordinated care recommendations Condition: stable Medical Decision Making Lab Data 03/03/24 14:23 03/03/24 12:40 Labs: Lab Results 03/03/24 03/03/24 03/03/24 Range/Units 12:40 14:23 15:58 WBC 9.0 (4.8-10.8) X10*3/uL RBC 3.25 L (4.60-5.80) X10*6/uL Hgb 9.9 L (14.0-18.0) g/dl Hct 33.1 L (42.0-52.0) % MCV 101.8 H (80.0-98.0) fL MCH 30.5 (27.0-33.0) pg MCHC 29.9 L (31.0-36.0) g/dl RDW 16.4 H (11.0-16.0) % Plt Count 212 (160-400) X10*3/uL MPV 10.3 (9.4-12.4) fL Immature Gran % (Auto) 0.9 H (0.0-0.4) % Neut % (Auto) 76.5 H (45-73) % Lymph % (Auto) 9.5 L (20-40) % [place] % (Auto) 8.9 (2-11) % Eos % (Auto) 4.0 (0-4) % Baso % (Auto) 0.2 (0-2) % Lymph # (Auto) 0.9 L (1.2-4.9) X10*3/uL [place] # (Auto) 0.8 (0.1-1.2) X10*3/uL Eos # (Auto) 0.4 (0.0-0.4) X10*3/uL Baso # (Auto) 0.0 (0.0-0.2) X10*3/uL Abs Immat Gran (auto) 0.08 H (0.00-0.03) X10*3/uL Absolute Neuts (auto) 6.8 (2.0-8.3) x10*3/uL Absolute Nucleated RBC 0.000 (0.0-0.012) X10*3/uL Nucleated RBC % (auto) 0.0 (0.0-0.2) /100WBC Sodium 139 (135-145) mmol/L Potassium 3.9 D (3.3-5.1) mmol/L Chloride 89 L (96-108) mmol/L Carbon Dioxide 46 H* (22-29) mmol/L Anion Gap 8 L (12-20) BUN 16 (9-16) mg/dL Creatinine 0.96 (0.5-1.4) mg/dL Estim Creat Clear Calc 82.3 Estimated GFR > 60 Random Glucose 121 H (60-115) mg/dL Calcium 9.3 (8.4-10.2) mg/dL Total Bilirubin 0.4 (0.0-1.0) mg/dL AST 26 (5-37) U/L ALT 16 (0-40) U/L Alkaline Phosphatase 141 H (39-117) U/L Troponin I High Sens 24.1 26.5 (<3.5-35.0) ng/L Total Protein 7.1 (6.5-8.0) g/dL Albumin 2.8 L (3.5-5.0) g/dL Lipase 25 (8-78) U/L TSH 1.63 (0.32-4.0) uIU/mL Urine Color Urine Appearance Urine pH (5.0-9.0) Ur Specific [place] (1.005-1.025) Urine Protein (Neg-Trace) mg/dL Urine Glucose (UA) (Negative) mg/dL Urine Ketones (Negative) mg/dL Urine Blood (Negative) Urine Nitrite (Negative) Ur Leukocyte Esterase (Negative) 03/03/24 Range/Units 17:12 WBC (4.8-10.8) X10*3/uL RBC (4.60-5.80) X10*6/uL Hgb (14.0-18.0) g/dl Hct (42.0-52.0) % MCV (80.0-98.0) fL MCH (27.0-33.0) pg MCHC (31.0-36.0) g/dl RDW (11.0-16.0) % Plt Count (160-400) X10*3/uL MPV (9.4-12.4) fL Immature Gran % (Auto) (0.0-0.4) % Neut % (Auto) (45-73) % Lymph % (Auto) (20-40) % [place] % (Auto) (2-11) % Eos % (Auto) (0-4) % Baso % (Auto) (0-2) % Lymph # (Auto) (1.2-4.9) X10*3/uL [place] # (Auto) (0.1-1.2) X10*3/uL Eos # (Auto) (0.0-0.4) X10*3/uL Baso # (Auto) (0.0-0.2) X10*3/uL Abs Immat Gran (auto) (0.00-0.03) X10*3/uL Absolute Neuts (auto) (2.0-8.3) x10*3/uL Absolute Nucleated RBC (0.0-0.012) X10*3/uL Nucleated RBC % (auto) (0.0-0.2) /100WBC Sodium (135-145) mmol/L Potassium (3.3-5.1) mmol/L Chloride (96-108) mmol/L Carbon Dioxide (22-29) mmol/L Anion Gap (12-20) BUN (9-16) mg/dL Creatinine (0.5-1.4) mg/dL Estim Creat Clear Calc Estimated GFR Random Glucose (60-115) mg/dL Calcium (8.4-10.2) mg/dL Total Bilirubin (0.0-1.0) mg/dL AST (5-37) U/L ALT (0-40) U/L Alkaline Phosphatase (39-117) U/L Troponin I High Sens (<3.5-35.0) ng/L Total Protein (6.5-8.0) g/dL Albumin (3.5-5.0) g/dL Lipase (8-78) U/L TSH (0.32-4.0) uIU/mL Urine Color Yellow Urine Appearance Clear Urine pH 7.5 (5.0-9.0) Ur Specific [place] 1.010 (1.005-1.025) Urine Protein Trace (Neg-Trace) mg/dL Urine Glucose (UA) Negative (Negative) mg/dL Urine Ketones Negative (Negative) mg/dL Urine Blood Negative (Negative) Urine Nitrite Negative (Negative) Ur Leukocyte Esterase Negative (Negative) Independent Interpretation I performed an independent interpretation of an: EKG Interpretation: A fib 63BPM, unremarkable compared to EKG 02/27/2024. Radiology Impression Discussion of test interpretation with radiology: I have reviewed the radiologist's reading. Radiologist Impression: EXAMINATION: XR CHEST CLINICAL INFORMATION: FTT COMPARISON: 03/03/2024 TECHNIQUE: 2 views of the chest were obtained. FINDINGS: EKG leads overlie the chest. Dual-lead left pectoral pacemaker appears unchanged. Cardiac silhouette is within normal limits in size for technique, unchanged as compared to prior. There is prominence of the central pulmonary vasculature. Chronic pleural parenchymal scarring is again noted. No appreciable pulmonary edema. No pleural effusion or pneumothorax. Bones are osteopenic. Degenerative disc disease in the thoracolumbar spine. Osteoarthritis is present in the acromioclavicular and glenohumeral joints. XR/XR chest 2V IMPRESSION: Prominence of the pulmonary vasculature which could be due to pulmonary arterial hypertension. Otherwise, no acute cardiac pulmonary findings.. Discharge Plan Discharge Clinical Impression: Physical deconditioning Patient Disposition: Still a Patient Prescriptions: No Action bumetanide 1 mg tablet 1 mg PO DAILY Qty: 30 4RF Protocol: Hold for SBP< HOLD for SBP < : 90 metoprolol succinate 50 mg tablet extended release 24 hr 50 mg PO DAILY Qty: 30 6RF Spiriva Respimat 2.5 mcg/actuation mist 2 puff PO DAILY Qty: 4 3RF Xarelto 20 mg tablet 20 mg PO DAILY Qty: 90 1RF Rx Instructions: must administer with evening meal atorvastatin 20 mg tablet 20 mg PO DAILY (DME) bedside commode Kit See Rx Instructions .Route Qty: 1 0RF Rx Instructions: As directed (DME) Ultra-Light Rollator Misc See Rx Instructions .Route Qty: 1 0RF Rx Instructions: As directed allopurinol 100 mg tablet 200 mg PO BEDTIME acetazolamide 250 mg tablet 250 mg PO BID 30 Days Qty: 60 2RF Rx Instructions: take on tablet twice daily for 30 days - medication started 02/09/24. Print Language: Slovak
[2024-03-03 14:27] LABS: MANUAL DIFF FLAG NO
[2024-03-03 14:28] LABS: Lipase 25 U/L (8-78); Troponin-I High Sensitivity 24.1 ng/L (<3.5-35.0)
[2024-03-03 14:34] LABS: Basophils Percent Auto 0.2 % (0-2); Eosinophils Absolute Auto 0.4 X10*3/uL (0.0-0.4); Hematocrit 33.1 % (42.0-52.0); Hemoglobin 9.9 g/dl (14.0-18.0); Imm Gran Abs Auto 0.08 X10*3/uL (0.00-0.03); Imm Gran Pct Auto 0.9 % (0.0-0.4); Lymphocytes Absolute Auto 0.9 X10*3/uL (1.2-4.9); Lymphocytes Percent Auto 9.5 % (20-40); Mean Corpuscular HGB Conc 29.9 g/dl (31.0-36.0); Mean Corpuscular Hemoglobin 30.5 pg (27.0-33.0); Mean Corpuscular Volume 101.8 fL (80.0-98.0); Mean Platelet Volume 10.3 fL (9.4-12.4); Monocytes Absolute Auto 0.8 X10*3/uL (0.1-1.2); Monocytes Percent Auto 8.9 % (2-11); Neutrophils Absolute Auto 6.8 x10*3/uL (2.0-8.3); Neutrophils Percent Auto 76.5 % (45-73); Platelet Count 212 X10*3/uL (160-400); Red Blood Count 3.25 X10*6/uL (4.60-5.80); Red Cell Distribution Width 16.4 % (11.0-16.0)
[2024-03-03 15:01] LABS: Thyroid Stimulating Hormone 1.63 uIU/mL (0.32-4.0)
[2024-03-03 15:06] VITALS: BP 96/51; PULSE 75; O2SAT 97
[2024-03-03 16:25] LABS: Troponin-I High Sensitivity 26.5 ng/L (<3.5-35.0)
[2024-03-03 17:00] VITALS: BP 123/73; PULSE 89; RESP 16; TEMP 36.6; O2SAT 97
[2024-03-03 17:19] LABS: Appearance Urine Clear; Color Urine Yellow; Glucose Urine UA Negative (Negative); Leukocyte Esterase Urine Negative (Negative); Nitrite Urine Negative (Negative); PH 7.5 (5.0-9.0); Urine Blood Negative (Negative); Urine Ketones Negative (Negative); Urine Protein Trace mg/dL (Neg-Trace)
--- NOTE | 2024-03-03 18:22 | PC.NURSE ---
Case management at bedside.
--- NOTE | 2024-03-03 19:35 | PC.NURSE ---
This RN assumed pt care @ 1900. Pt resting comfortably in bed, no signs of distress. Plan of care ongoing.
[2024-03-03 20:10] VITALS: BP 110/60; PULSE 75; RESP 16; TEMP 36.8; O2SAT 95
--- NOTE | 2024-03-03 20:18 | MHC.CM.ED ---
NAREN met with patient at the request of Dr. Patel. Pt was seen in the ED on 02/26-02/28 with same concerns of physical deconditioning, unable to ambulate and needing rehab. At that time, the acute rehabs did not offer a bed, patient had no qualifying stay to qualify for STR with Medicare payment, and patient has not funds to pay for STR. At that time, pt was referred to [facility]. Referral was placed with [facility]. refused referral to financial counselors for assistance with MH application. /HCP Alexandria Ramirez ([phone]) tells CM that she refused appointment with [facility] because they could not see her for a week. Alexandria is hesitant to have help in the home. Patient lives with his . Has a walker, electric scooter, and rollator. Pt has not ambulated in weeks, but patient and are very vague as to how long he has been non-ambulatory. Pt sleeps in his recliner, voids in a bucket and has not had a BM in a week. Pt refuses to wear depends and does not wear underpants. He has not showered in weeks. Pt is unkempt. Pt is on continuous oxygen at 4L, supplied by [employer]. Alexandria continually tells CM that her needs PT and that the home PT told her he needs rehab in a facility. CM explained 3 times that acute referrals have been made, as they were made 3 days ago. Explained that the facilities will make a decision on admission tomorrow. CM again explained patient does not meet criteria for admission and that Medicare will not pay for STR from the ED without a qualifying stay. Alexandria does not understand and feels Medicare should pay. Son is also present. Son seems to understand. CM spoke with TOD via speaker phone and explained above and that referrals were made for acute rehab. If denied, then they could private pay for STR or the patient would have to go home with [facility]. Family is asking about admission. NAREN spoke with Dr. Patel-Pt does not meet criteria for admission. CM stressed with Alexandria that she needs help at home. She is very resistant. She does not want any referrals to [facility] or [facility] financial services for assistance with MH application. Son tells NAREN that he and his brother will speak with his mother about help at home. Patient will stay overnight, awaiting disposition in the am. [facility] has denied admission. [facility] is reviewing. [facility] is reviewing. CM will follow for discharge planning.
[2024-03-03 20:58] VITALS: BP 135/55; PULSE 110; RESP 20; TEMP 36.6; O2SAT 96
--- NOTE | 2024-03-03 22:11 | MHC.EDTECH ---
Patient Came to overflow at 2030. incontinent x 2. The Rn and i gave him a full bed bath with soap and water. redness and skin breakdown noted in groin folds and under breast. a size 25 short [place] cath was placed to prevent skin break down. provided patient with call cates, a drink as requested. bed alarm on.
[2024-03-04] VITALS (7 sets, daily range): BP systolic 108–134; BP diastolic 55–72; PULSE 60–92; RESP 17–19; TEMP 36.6–37.1; O2SAT 93–100
[2024-03-04] MEDS: Acetaminophen 325 MG TABLET 975 MG PO ×2 (06:20→15:17)
--- NOTE | 2024-03-04 06:32 | PC.NURSE ---
Assumed care of patient at 0600 am. Patient awake, coughing, complaining of 10/10 lower back/abdomen pain, states feels like I'm going to be split in half , asking for some Tylenol. MAR reviewed, no meds ordered at this time. Spoke to [facility] RN Nevaeh who spoke to ED MD who ordered 1x dose of 975 mg PO Tylenol. Asked patient if he knew any other meds that he takes, he states he does not, but his should. Called Alexandria, no answer, left message to call here when able.
--- NOTE | 2024-03-04 08:27 | MHC.CM.ED ---
Patient remains in ER. [facility] is not able to offer a bed. Clinical updates sent to [facility] and [facility]. PT rodriguez stated LUE in sling. No lifting . That was auto-populated from when patient had pacemaker inserted in November 2021. Physical therapist is unable to delete this. Continue to monitor for d/c needs.
--- NOTE | 2024-03-04 08:52 | PHA.MEDREC ---
Pharmacy Consult ? Medication Reconciliation Pharmacy has completed the medication reconciliation. Reviewed med rec done by nursing (Zee). Patient recently here 02/26-02/28 and was talked to by pharmacy for med rec.
[2024-03-04] MEDS: Lidocaine 4 % Patch ADH..PATCH 1 PATCH TRANSDERMA (10:02)
[2024-03-04] MEDS: Tiotropium Bromide 2.5 mcg 1 PUFF/2.5 MCG MIST.INHAL 2 PUFF INHALE (10:02)
[2024-03-04] MEDS: Atorvastatin Calcium 20 MG TABLET PO (10:02)
[2024-03-04] MEDS: Metoprolol Succinate ER 50 MG TAB.ER.24H PO (10:02)
[2024-03-04] MEDS: Bumetanide 1 MG TABLET PO (10:03)
[2024-03-04] MEDS: acetaZOLAMIDE 250 MG TABLET PO (10:53)
--- NOTE | 2024-03-04 13:35 | MHC.CM.ED ---
Patient remains in ER overflow. No acute rehab bed offers available. Attempted to speak with patient's son, Andres, via telephone at [phone]. Left message requesting return telephone call. Spoke with Andres's sig other, Ninfa, via telephone at [phone]. Andres and Ninfa spoke with Alexandria. She is now agreeable to more help in the home. Patient will return home with [facility] via BLS at 5pm. Patient, Zee Ocasio RN and Anette VALENCIA aware. Continue to monitor for d/c needs.
--- NOTE | 2024-03-04 13:56 | PC.NURSE ---
Addendum entered by Zee Rivero 03/04/24 14:29: incontinent of large bowel movement, patient cleaned/changed and repositioned in the bed Original Note: patient states that his last bowel movement was yesterday and he feels as if he could go right now. plan for patient to be discharged w/ ems at 1700
--- NOTE | 2024-03-05 11:30 | MHC.CM.ED ---
Received notification from [facility] that they will not be able to accept patient back. Referral broadcasted in [employer]. [facility] is able to accept patient.
== END 2024-03-04 17:55 | disposition home or self-care (01) ==
PROVIDERS: Emergency Provider Emergency Medicine
DX: R62.7 Adult failure to thrive (principal); Z68.41 Body mass index [BMI] 40.0-44.9, adult; R53.1 Weakness; I48.0 Paroxysmal atrial fibrillation; J96.10 Chronic respiratory failure, unspecified whether with hypoxia or hypercapnia; Z99.81 Dependence on supplemental oxygen; Z95.0 Presence of cardiac pacemaker; J44.9 Chronic obstructive pulmonary disease, unspecified; I13.0 Hypertensive heart and chronic kidney disease with heart failure and stage 1 through stage 4 chronic kidney disease, or unspecified chronic kidney disease; N18.9 Chronic kidney disease, unspecified; I50.9 Heart failure, unspecified; Z79.01 Long term (current) use of anticoagulants
CPT/HCPCS: 36415; 51798; 71046; 80053; 81003; 83690; 84443; 84484; 85025; 93005; 97162; 99285

== ENCOUNTER → 2024-03-03 12:16 | Outpatient (BNV) | payer MEDICARE, SELFPAY | PROVIDERS: Emergency Provider Emergency Medicine; Visit Provider Internal Medicine | DX: R53.1 Weakness (principal); I48.91 Unspecified atrial fibrillation; R94.31 Abnormal electrocardiogram [ECG] [EKG] | CPT/HCPCS: 93010 ==

== ENCOUNTER → 2024-03-16 23:59 | Outpatient (BNV) | payer MEDICARE, SELFPAY ==
--- NOTE | 2024-03-16 14:49 | MHC.OFFVIS ---
Intake Visit Reasons: Remote Device Check- [facility] Allergies No Known Allergies [No Known Allergies*] Allergy (Verified 03/03/24 11:54) PFS Medical History Respiratory failure with hypoxia and hypercapnia Hypoventilation syndrome Persistent atrial fibrillation Paroxysmal atrial fibrillation Fatigue COPD (chronic obstructive pulmonary disease) Hypoxemia requiring supplemental oxygen Restrictive lung disease Morbid obesity Chronic heart failure with preserved ejection fraction (HFpEF) Interstitial lung disease Pacemaker (~2021) Pulmonary fibrosis First degree AV block Chronic hyponatremia CHF (congestive heart failure) Atrial fibrillation with slow ventricular response COPD (chronic obstructive pulmonary disease) Restrictive lung disease Hypoxemia Morbid obesity IPF (idiopathic pulmonary fibrosis) Aortic stenosis CKD (chronic kidney disease) HTN (hypertension) Surgical History History of pacemaker (~2021) History of surgery on wrist Family History Father Cancer Mother Dementia Social History Household Members: Spouse Housing: House Do you presently have visiting nurse or other home services: No Alcohol intake: never Patient Tobacco Use Status: Never used Tobacco Advance Directives Date on File: 06/08/21 service: No Current occupational status: retired Office Procedures Cardiac Device Check Cardiac Device Check Details: Remote pacemaker report generated 03/16/2024. Pacemaker function is adequate [id number] Cardiac Device Interrogation, pacemaker Procedure code (CPT) selection complete Assessment & Plan Assessment & Plan (1) Pacemaker: Onset Date: ~2021 Comment: ([facility] DCPP - placed 11/2021) Code(s): Z95.0 - Presence of cardiac pacemaker Category: Medical Plan: See above Coding Level of Care Code Procedure Only Diagnoses Pacemaker Z95.0 CPT Codes Cardiac Device Check - Cardiac Device 12: [id number] Cardiac Device Interrogation, pacemaker ([id number])
== END ==
PROVIDERS: Visit Provider Internal Medicine Cardiovascular Disease
DX: Z45.018 Encounter for adjustment and management of other part of cardiac pacemaker (principal)
CPT/HCPCS: 93294

== ENCOUNTER 2024-05-11 13:36 | Outpatient (AMB) | payer MEDICARE, SELFPAY ==
[2024-05-11 13:52] VITALS: BP 120/54; PULSE 60; O2SAT 94
--- NOTE | 2024-05-11 13:52 | A.OFFVIS_ITS ---
Vital Signs 05/11/24 13:52 Height 5 ft 8 in BP 120/54 L Blood Pressure Location Lt brachial Position Sitting Pulse 60 Pulse Source Pulse Oximeter Pulse Oximetry (%) 94 Oxygen Delivery Method Nasal Cannula Oxygen Flow Rate 4 Intake Visit Reasons: COPD Intake Note: pt is here for follow up visit, he has [facility] in the home, physical therapy also, he states he is struggling with his breathing, and he sleeps a lot also. Continuous Wave Operator Required: No Allergies No Known Allergies [No Known Allergies*] Allergy (Verified 05/11/24 14:05) Medication List - Last Reconciled 05/11/24 by Marsha Rosales MD acetazolamide 250 mg PO BID 30 days allopurinol 200 mg PO BEDTIME atorvastatin 20 mg PO DAILY bumetanide 1 mg See Protocol PO DAILY commode (bedside commode) As directed metoprolol succinate ER 50 mg PO DAILY rivaroxaban (Xarelto) 20 mg PO DAILY Spiriva Respimat 2.5 mcg/actuation (tiotropium bromide) 2 puffs PO DAILY NS walker (Ultra-Light Rollator misc) As directed Do you need a note to return to daycare/school/sports/work: No HPI HPI COPD: Details: LEONOR, 78 YEARS OLD GENTLEMAN, COMES AFTER 3 MONTHS FOR FOLLOW-UP. HE HAD BEEN STARTED ON HOME VENTILATOR FOR TREATMENT OF HIS WORSENED RESPIRATORY FAILURE, WITH CO2 RETENTION. HOWEVER NO MATTER HOW MUCH HE TRIED HE COULD NOT USE THE VENTILATOR AND IT WAS RETURNED. HE CONTINUES TO STRUGGLE WITH BREATHING, HAS FREQUENT BOUTS OF COUGH, SOME WHEEZING. BUT HE HAS HAD NO RESPIRATORY INFECTION. HE HAS CARE BY VISITING NURSES AT HOME, WHO HAVE HELPED HIM IN DOING DEEP BREATHING EXERCISES AND ALSO PROVIDING PHYSICAL THERAPY TO HELP HIM MOVE AROUND. HE IS TAKING HIS DIURETIC THERAPY REGULARLY. HE WAS TAKING ACETAZOLAMIDE 250 MG B.I.D. WHICH FINISHED A FEW DAYS AGO AND HE NEEDS A REFILL. OVERALL HIS CONDITION IS NOT ANY WORSE, I THINK IT IS SOMEWHAT BETTER THAN BEFORE. HE SEEMS TO BE MORE ALERT THAN LAST TIME. [facility] Medical History Respiratory failure with hypoxia and hypercapnia Hypoventilation syndrome Persistent atrial fibrillation Paroxysmal atrial fibrillation Fatigue COPD (chronic obstructive pulmonary disease) Hypoxemia requiring supplemental oxygen Restrictive lung disease Morbid obesity Chronic heart failure with preserved ejection fraction (HFpEF) Interstitial lung disease Pacemaker (~2021) Pulmonary fibrosis First degree AV block Chronic hyponatremia CHF (congestive heart failure) Atrial fibrillation with slow ventricular response COPD (chronic obstructive pulmonary disease) Restrictive lung disease Hypoxemia Morbid obesity IPF (idiopathic pulmonary fibrosis) Aortic stenosis CKD (chronic kidney disease) HTN (hypertension) Surgical History History of pacemaker (~2021) History of surgery on wrist Family History Father Cancer Mother Dementia Social History Household Members: Spouse Housing: House Do you presently have visiting nurse or other home services: No Alcohol intake: never Patient Tobacco Use Status: Never used Tobacco Advance Directives Date on File: 06/08/21 service: No Current occupational status: retired Review of Systems Const All systems reviewed & are unremarkable except as noted in HPI and below Eyes Reports no additional complaints ENT Reports no additional complaints Card Denies chest pain, Reports irregular heart rhythm, Reports leg edema (bilateral ) and Reports dyspnea on exertion Resp Reports as per HPI and Reports dyspnea on exertion GI Reports no additional complaints Reports no additional complaints Musc Reports abnormal gait (Patient is non ambulatory, uses wide wheelchair) and Reports back pain Skin/Breast Reports system reviewed and no additional complaints, except as documented Neuro Reports abnormal gait (Patient is non ambulatory, uses wide wheelchair) Psych Reports no additional complaints Physical Exam Vital Signs: Last Vital Signs Pulse 60 05/11/24 13:52 BP 120/54 L 05/11/24 13:52 Pulse Ox 94 05/11/24 13:52 Oxygen Delivery Method Nasal Cannula 05/11/24 13:52 Oxygen Flow Rate 4 05/11/24 13:52 Const General: no acute distress (But short of breath during conversation), alert and awake Orientation/consciousness: patient oriented x3 HEENT Head: Yes normal to inspection General nose exam: No nasal polyps present and No nasal discharge present Face and sinus: Yes sinuses nontender Mouth: oropharynx normal Teeth and gingiva: other (THROAT IS NARROW, BUT THERE IS NO EVIDENCE OF INFECTION AND ALSO NO THRUSH.) Throat: Yes posterior oropharynx normal Eyes General: appearance normal, both eyes and all related structures Neck Neck: Yes normal visual inspection, Yes no lymphadenopathy, Yes trachea midline and Yes no JVD Thyroid: Thyroid normal Chest Chest palpation & inspection: normal inspection of the chest, normal palpation of entire chest wall and no tenderness Resp Other: Percussion note not perceptible over the lower have some of the chest. Breath sounds are slightly decreased over both lower lobes. He does have some expiratory wheezes over both lower lobe areas. Cardio Palpation: normal PMI Rate: regular rate Rhythm: abnormal rhythm (Atrial fibrillation) Heart sounds: no gallops and no murmurs GI Palpation (GI): Soft to palpation, nontender, No hepatosplenomegaly present, no masses and Other GI palpation findings present (Abdomen is extremely obese and protuberant) Auscultation: normal bowel sounds Back/Spine/Pelvis Thoracic/Lumbar Spine: thoracic and lumbar spine normal to inspection and thoraco-lumbar ROM limited Skin General skin exam: no rashes or lesions noted and induration (Left leg) Neuro General: patient oriented x3, No gait normal (Non ambulatory) and no focal motor deficits Cranial nerves: Yes CN's II-XII intact bilaterally Extrem General: Yes normal to inspection, Yes no calf tenderness, Yes edema (only minimal edema of legs , actually not much this time.) and Yes venous stasis dermatitis (of both legs ) Psych Appearance: grossly normal Speech and movement: Normal speech and movement present Results Reviewed Results Reviewed: Chest x-ray, 03/03/24 IMPRESSION: Prominence of the pulmonary vasculature which could be due to pulmonary arterial hypertension. Otherwise, no acute cardiac pulmonary findings.. Assessment & Plan Assessment & Plan (1) COPD (chronic obstructive pulmonary disease): Comment: PER PULMONARY FUNCTION TEST HE DOES NOT HAVE ANY SIGNIFICANT OBSTRUCTIVE DISORDER, BUT CLINICALLY HE HAS FREQUENT COUGH AND SHORTNESS OF BREATH, WHICH ARE CONTROLLED WITH SPIRIVA RESPIMAT 2 INH DAILY . Code(s): J44.9 - Chronic obstructive pulmonary disease, unspecified Category: Medical Qualifiers: COPD type: COPD with acute exacerbation Qualified Code(s): J44.1 - Chronic obstructive pulmonary disease with (acute) exacerbation Plan: see below (2) Hypoventilation syndrome: Comment: HE HAS CLINICAL FEATURES AND CONFIRMED BY VENOUS BLOOD GASES THAT HE SUFFERS FROM CHRONIC HYPOVENTILATION SYNDROME/RESPIRATORY FAILURE. EXPLAINED TO HIM. WILL REPEAT VENOUS BLOOD GAS STUDY TODAY AND ALSO ELECTROLYTES. Code(s): R06.89 - Other abnormalities of breathing Category: Medical Plan: see below (3) Respiratory failure with hypoxia and hypercapnia: Comment: HE HAS HYPOXEMIA WELL HYPERCAPNIA, SECONDARY TO HYPOVENTILATION NOTED ABOVE. Code(s): J96.91 - Respiratory failure, unspecified with hypoxia; J96.92 - Respiratory failure, unspecified with hypercapnia Category: Medical Plan: see below (4) Restrictive lung disease: Comment: Clinically he has significant restrictive pulmonary disorder due to his morbid obesity, And pulmonary fibrosis is in the lower lobes. Code(s): J98.4 - Other disorders of lung Category: Medical Plan: see below (5) Chronic heart failure with preserved ejection fraction (HFpEF): Comment: IS ASSOCIATED PROBLEM IS CHRONIC CONGESTIVE HEART FAILURE WHICH IS BEING TREATED WITH DIURETIC THERAPY. HE DID HAVE BORDERLINE HYPONATREMIA, HYPOCHLOREMIA , . AND ALKALOSIS PROBABLY RELATED TO DIURETIC THERAPY. I HAVE URGED HIM TO MAKE APPOINTMENT TO BE SEEN BY THE CARDIOLOGY SERVICE SOON POSSIBLE. I HAVE ALSO URGED HIM TO MAKE REGULAR APPOINTMENTS TO BE SEEN BY PRIMARY. CARE PHYSICIAN Code(s): I50.32 - Chronic diastolic (congestive) heart failure Category: Medical Plan: see below (6) Interstitial lung disease: Comment: , PER CT SCAN OF THE CHEST HE HAS RESIDUAL PULMONARY FIBROSIS IN BOTH LOWER LOBES, GROUND-GLASS DENSITIES SECONDARY TO ALVEOLITIS HAVE RESOLVED. HE STILL CONTINUES TO HAVE SIGNIFICANT COUGH, CONGESTED FEELING AND DYSPNEA. Code(s): J84.9 - Interstitial pulmonary disease, unspecified Category: Medical Plan: see below Plan This 78 years old gentleman who is grossly obese and has multiple problems as listed above. Could not use the home ventilator. He remains on O2 4 L/minute. He is relatively stable and mental status seems to be better than last time. Home physical therapy is helping. I have again trained him to do deep breathing exercises with pursed lip technique, and us the to remind him every couple hours. He is advised to continue acetazolamide 250 mg b.i.d. Use DuoNeb. updrafts at least twice a day Continue Spiriva Respimat 2.52 inhalations daily. Deep breathing exercises with pursed lip technique q.2 hours while awake O2 3-4 L/minute to keep O2 sat just above 90% Orders: Orders Venous Blood Gas Today J44.1 - Chronic obstructive pulmonary disease with (acute) exacerbation, J96.91 - Respiratory failure, unspecified with hypoxia, J96.92 - Respiratory failure, unspecified with hypercapnia, R06.89 - Other abnormalities of breathing Blood Urea Nitrogen Today J96.91 - Respiratory failure, unspecified with hypoxia, J96.92 - Respiratory failure, unspecified with hypercapnia, N18.9 - Chronic kidney disease, unspecified, R06.89 - Other abnormalities of breathing Creatinine Today J96.91 - Respiratory failure, unspecified with hypoxia, J96.92 - Respiratory failure, unspecified with hypercapnia, N18.9 - Chronic kidney disease, unspecified Electrolytes Today J96.91 - Respiratory failure, unspecified with hypoxia, J96.92 - Respiratory failure, unspecified with hypercapnia, N18.9 - Chronic kidney disease, unspecified Coding Level of Care Code Est Pt Level 4 (06059) Diagnoses COPD (chronic obstructive pulmonary disease) J44.1 COPD type: COPD with acute exacerbation Hypoventilation syndrome R06.89 Respiratory failure with hypoxia and hypercapnia J96.91; J96.92 Restrictive lung disease J98.4 Chronic heart failure with preserved ejection fraction (HFpEF) I50.32 Interstitial lung disease J84.9
== END 2024-05-11 14:20 | disposition home or self-care (01) ==
PROVIDERS: PCP Internal Medicine; Visit Provider Internal Medicine
DX: J44.1 Chronic obstructive pulmonary disease with (acute) exacerbation (principal); J96.91 Respiratory failure, unspecified with hypoxia; J96.92 Respiratory failure, unspecified with hypercapnia; J98.4 Other disorders of lung; I50.32 Chronic diastolic (congestive) heart failure; J84.9 Interstitial pulmonary disease, unspecified
CPT/HCPCS: 99214

== ENCOUNTER 2024-05-11 13:36 | Outpatient (REF) | payer MEDICARE, SELFPAY ==
[2024-05-11 15:05] LABS: VBG Base Excess 37.1 mmol/L; VBG HCO3 69 mmol/L (22-26); VBG pCO2 98 mmHg; VBG pH 7.45 (7.32-7.43); VBG pO2 28 mmHg
[2024-05-11 15:06] LABS: Venous Blood Gas Refer to POC result
[2024-05-11 15:31] LABS: Blood Urea Nitrogen 17 mg/dL (9-16); Carbon Dioxide 51 mmol/L (22-29); Chloride 73 mmol/L (96-108); Estimated Glomerular Filt Rate > 60; Sodium 131 mmol/L (135-145)
== END 2024-05-11 13:37 | disposition home or self-care (01) ==
LOC: HO.LAB 13:36
PROVIDERS: PCP Internal Medicine; Visit Provider Internal Medicine
DX: J96.91 Respiratory failure, unspecified with hypoxia (principal); J96.92 Respiratory failure, unspecified with hypercapnia; N18.9 Chronic kidney disease, unspecified; J44.1 Chronic obstructive pulmonary disease with (acute) exacerbation
CPT/HCPCS: 36415; 80051; 82565; 82803; 84520; 99212

== ENCOUNTER 2024-05-12 15:40 | Emergency (ER) | payer MEDICARE, SELFPAY ==
[2024-05-12] VITALS (8 sets, daily range): BP systolic 113–160; BP diastolic 53–82; PULSE 56–80; RESP 17–22; TEMP -17.7–34.8; O2SAT 75–96; BMI 39.5
--- NOTE | ~2024-05-12 | XR_ITS ---
EXAMINATION: XR CHEST CLINICAL INFORMATION: Shortness of breath. COMPARISON: Chest radiograph 03/03/2024. TECHNIQUE: AP view of the chest was obtained. FINDINGS: Stable enlargement of the cardiomediastinal silhouette. Left-sided pacer with leads projecting over the expected location of the right atrium and right ventricle. Unchanged prominence of the central pulmonary vasculature. Slightly increased interstitial coarsening bilaterally. No focal consolidation. No pleural effusion or pneumothorax. No acute osseous findings. XR/XR chest 1V IMPRESSION: 1. Slightly increased interstitial coarsening which could be related with an infectious/inflammatory process of the small airways. No focal consolidation. No pleural effusion or pneumothorax. 2. Unchanged enlargement of the cardiomediastinal silhouette. 3. Stable prominence of the central pulmonary vasculature that could indicate pulmonary hypertension. Electronically signed by: Iman Liu MD 05/12/2024 07:00 PM EDT
--- NOTE | 2024-05-12 15:52 | ECG_ITS ---
Test Reason : SOB Blood Pressure : / mmHG Vent. Rate : 055 BPM Atrial Rate : 000 BPM P-R Int : 000 ms QRS Dur : 110 ms QT Int : 434 ms P-R-T Axes : 000 -41 096 degrees QTc Int : 415 ms Atrial fibrillation with slow ventricular response with frequent ventricular-paced complexes Left axis deviation Incomplete left bundle branch block Moderate voltage criteria for LVH, may be normal variant ( R in aVL , Sly product ) Abnormal QRS-T angle, consider primary T wave abnormality Abnormal ECG When compared with ECG of 03-MAR-2024 12:16, Vent. rate has decreased BY 8 BPM Referred By: Anette Grant Electronically Signed By:DARON GAYTAN
--- NOTE | 2024-05-12 16:05 | ED.SOB ---
HPI - SOB/Dyspnea General Chief Complaint: Dyspnea Stated Complaint: SOB, 85% RA, LOW 90'S ON NC Time Seen by Provider: 05/12/24 16:01 Source: patient and EMS Mode of arrival: EMS Limitations: no limitations History of Present Illness ED Provider: Dr. Neda Rueda HPI Narrative: Patient comes to the emergency room via ambulance from home. Patient states that he feels the same as always. Patient states that his coughing is at baseline in his shortness of breath is at baseline as well. Denies chest pain. According to EMS, the patient was at home with physical therapy, patient usually uses 4 L nasal cannula at baseline. However, while he was working out with PT, patient's oxygen saturation was in the low 80s. It is unclear if he was using his oxygen or not. Related Data Home Medications ?Medication ?Instructions ?Recorded ?Confirmed allopurinol 100 mg tablet 200 mg PO BEDTIME 07/25/20 05/11/24 atorvastatin 20 mg tablet 20 mg PO DAILY 06/06/21 05/11/24 Previous Rx's ?Medication ?Instructions ?Recorded commode (bedside commode) #1 ea 12/03/21 walker (Ultra-Light Rollator misc) #1 ea 12/03/21 bumetanide 1 mg tablet 1 mg PO DAILY #30 tabs 10/07/23 metoprolol succinate 50 mg 50 mg PO DAILY #30 tabs 12/02/23 tablet,extended release 24 hr Spiriva Respimat 2.5 mcg/actuation 2 puff PO DAILY #4 grams 01/09/24 solution for inhalation (tiotropium bromide) rivaroxaban 20 mg tablet (Xarelto) 20 mg PO DAILY #90 tabs 02/04/24 acetazolamide 250 mg tablet 250 mg PO BID Respiratory failure 05/11/24 30 days #60 tabs azithromycin 250 mg tablet 250 mg PO DAILY 4 days #4 tabs 05/12/24 cefuroxime axetil 500 mg tablet 500 mg PO BID #14 tabs 05/12/24 prednisone 50 mg tablet 50 mg PO DAILY #5 tabs 05/12/24 Allergies Allergy/AdvReac Type Severity Reaction Status Date / Time No Known Allergies Allergy Verified 05/12/24 15:51 [No Known Allergies*] Review of Systems Review of Systems: Constitutional : No Weight loss, No Fever, No Chills, No Night Sweats, No Fatigue, No Malaise ENT/Mouth : No Hearing loss, No Ear Pain, No Nasal Congestion, No Sinus Pain, No Hoarseness, No sore throat, No Rhinorrhea, No Swallowing Difficulty Eyes: No Eye Pain, No Swelling, No Redness, No Foreign Body, No Discharge, No Vision Changes Cardiovascular : No Chest Pain, No SOB, No Dyspnea on Exertion, No Orthopnea, No Edema, No Palpitations Respiratory : Reports at baseline coughing sputum production and shortness of breath, no worsening of symptoms per patient, per PT and EMS, patient's oxygen saturation was low even on 4 L Gastrointestinal : No Nausea, No Vomiting, No Diarrhea, No Constipation, No abdominal Pain, No Hematochezia, No Melena Genitourinary : no irregular bleeding, No Dysuria, No Urinary Frequency, No Hematuria, No Urinary Incontinence, No Urgency, No Flank Pain, No Urinary Flow Changes, No Hesitancy Musculoskeletal : No joint pain, No Myalgias, No Joint Swelling Skin : No Skin Lesions, No rash Neuro : No Weakness, No Numbness, No Paresthesias, No Loss of Consciousness, No Dizziness, No Headache Psych : No Anxiety/Panic, No Depression, No SI/HI/AH/VH, No Social Issues, Heme/Lymph: No Bruising, No Bleeding,No Lymphadenopathy Endocrine : No Polyuria, No Polydipsia, No Temperature Intolerance [facility] Past Medical History Medical History Respiratory failure with hypoxia and hypercapnia Hypoventilation syndrome Persistent atrial fibrillation Paroxysmal atrial fibrillation Fatigue COPD (chronic obstructive pulmonary disease) Hypoxemia requiring supplemental oxygen Restrictive lung disease Morbid obesity Chronic heart failure with preserved ejection fraction (HFpEF) Interstitial lung disease Pacemaker (~2021) Pulmonary fibrosis First degree AV block Chronic hyponatremia CHF (congestive heart failure) Atrial fibrillation with slow ventricular response COPD (chronic obstructive pulmonary disease) Restrictive lung disease Hypoxemia Morbid obesity IPF (idiopathic pulmonary fibrosis) Aortic stenosis CKD (chronic kidney disease) HTN (hypertension) Surgical History History of pacemaker (~2021) History of surgery on wrist Family History Family History Father Cancer Mother Dementia Social History Social History Household Members: Spouse Housing: House Do you presently have visiting nurse or other home services: No Alcohol intake: never Patient Tobacco Use Status: Never used Tobacco Advance Directives: Yes Advance Directives on File: Yes Advance Directives Date on File: 06/08/21 Do you have a plan to hurt others: No Plan service: No Current occupational status: retired Physical Exam Vital Signs: Vital Signs: Last Vital Signs Temp 94.7 F L 05/12/24 20:22 Pulse 56 05/12/24 20:22 Resp 18 05/12/24 20:22 BP 119/82 05/12/24 20:22 Pulse Ox 92 05/12/24 20:22 O2 Del Method Nasal Cannula 05/12/24 20:22 O2 Flow Rate 4 05/12/24 20:22 BMI result Body Mass Index 39.5 Const: Other: Appearance: Alert. Oriented X3. No acute distress. Eyes: Pupils equal, round and reactive to light. ENT: Pharynx normal. Neck: Normal inspection. Neck supple. No lymph nodes noted. No crepitus CVS: Normal heart rate and rhythm. Pulses normal. Normal S1 and S2 Respiratory: bilateral crackles, no wheezing, oxygen saturation 92% on 10 L OxyMask Abdomen: Soft and nontender. No rigidity. No distention. Skin: Skin warm and dry. Normal skin color. Normal skin turgor. Extremities: No lower extremity edema. No Lacerations. No Rash Neuro: Oriented X 3. No motor deficit. No sensory deficit. Moving all extremities. No slurred speech. CN 2 through 12 grossly intact Psych: calm, cooperative, normal affect Course Course Course Narrative: all of patient's labs and imaging pending - patient receiving a bronch protocol Medications Administered Generic Name Dose Route Start Last Admin Trade Name Freq PRN Reason Stop Dose Admin Azithromycin 500 mg/ Sodium 250 mls @ 125 mls/hr 05/12/24 19:07 05/12/24 19:58 Chloride IV 05/12/24 21:06 125 mls/hr ONCE ONE Administration Discontinued Medications Generic Name Dose Route Start Last Admin Trade Name Freq PRN Reason Stop Dose Admin Albuterol Sulfate 2.5 mg/ 0 mg 05/12/24 16:04 05/12/24 16:19 Albuterol/Ipratropium 3 ml INHALE 05/12/24 16:05 5 dose ONCE ONE Administration Ceftriaxone Sodium 1 gm/ 50 mls @ 100 mls/hr 05/12/24 19:07 05/12/24 20:14 Sodium Chloride IV 05/12/24 19:36 Infused ONCE ONE Infusion Medical Decision Making Medical Decision Making [facility] Narrative: My interpretation of labs: Hematology at baseline, patient's pCO2 is 86 which is patient's baseline, bicarb 66, pH 7.49, patient is compensated. Patient states that he refuses to wear CPAP at bedtime which has been recommended by his previous providers. Patient's sodium slightly decreased 132, troponin within normal limits - my interpretation of chest x-ray, possible pneumonia. - Patient was empirically treated with antibiotics, ceftriaxone and azithromycin, Solu-Medrol, nebulization treatments. Patient's blood pressure is stable. - IV fluids were going to be started. However, patient states that he wants to go home. Patient declined admission. Patient states that at this time, his oxygen is back to baseline, he is always on 4 L and he feels well. Patient states that to begin with, prior to arrival he was feeling well. - I discussed with the patient that on arrival he was requiring more oxygen and also his temperature is low, both oral and rectal. - I discussed the patient with Dr. Johnson, who accepted the patient. Dr. Johnson tried to convince the patient to stay/ be admitted. However, patient is adamant that he will not stay Differential Diagnosis Differential Diagnoses: The differential diagnosis associated with the presentation includes ( COPD, pneumonia, hypoxic respiratory failure) Admission/Observation Consideration of admission/observation: Escalation of care including admission/observation considered Consult Healthcare Provider Management of the patient was discussed with: Hospitalist Lab Data [facility] Lab Attestation statement: I reviewed the patient's lab results. 05/12/24 15:59 05/12/24 16:49 Labs: Lab Results 05/12/24 05/12/24 05/12/24 Range/Units 15:59 16:00 16:08 WBC 10.4 (4.8-10.8) X10*3/uL RBC 3.40 L (4.60-5.80) X10*6/uL Hgb 10.5 L (14.0-18.0) g/dl Hct 33.9 L (42.0-52.0) % MCV 99.7 H (80.0-98.0) fL MCH 30.9 (27.0-33.0) pg MCHC 31.0 (31.0-36.0) g/dl RDW 16.6 H (11.0-16.0) % Plt Count 245 (160-400) X10*3/uL MPV 10.7 (9.4-12.4) fL Immature Gran % (Auto) 1.4 H (0.0-0.4) % Neut % (Auto) 80.4 H (45-73) % Lymph % (Auto) 10.1 L (20-40) % [place] % (Auto) 5.9 (2-11) % Eos % (Auto) 1.9 (0-4) % Baso % (Auto) 0.3 (0-2) % Lymph # (Auto) 1.1 L (1.2-4.9) X10*3/uL [place] # (Auto) 0.6 (0.1-1.2) X10*3/uL Eos # (Auto) 0.2 (0.0-0.4) X10*3/uL Baso # (Auto) 0.0 (0.0-0.2) X10*3/uL Abs Immat Gran (auto) 0.14 H (0.00-0.03) X10*3/uL Absolute Neuts (auto) 8.3 (2.0-8.3) x10*3/uL Absolute Nucleated RBC 0.000 (0.0-0.012) X10*3/uL Nucleated RBC % (auto) 0.0 (0.0-0.2) /100WBC Hold Purple Top Hold Blue Top VBG pH 7.49 H (7.32-7.43) VBG pCO2 86 mmHg VBG pO2 49 mmHg VBG HCO3 66 H (22-26) mmol/L VBG O2 Saturation 79.0 % VBG Base Excess 35.4 mmol/L Sodium (135-145) mmol/L Potassium (3.3-5.1) mmol/L Chloride (96-108) mmol/L Carbon Dioxide (22-29) mmol/L Anion Gap BUN (9-16) mg/dL Creatinine (0.5-1.4) mg/dL Estim Creat Clear Calc Estimated GFR Random Glucose (60-115) mg/dL Lactic Acid 1.4 (0.5-2.0) mmol/L Calcium (8.4-10.2) mg/dL Magnesium (1.6-2.6) mg/dL Total Bilirubin (0.0-1.0) mg/dL Direct Bilirubin (0.0-0.5) mg/dL AST (5-37) U/L ALT (0-40) U/L Alkaline Phosphatase (39-117) U/L Troponin I High Sens (<3.5-35.0) ng/L B-Natriuretic Peptide 198 H (<100) pg/mL Total Protein (6.5-8.0) g/dL Albumin (3.5-5.0) g/dL COVID-19 (LADY) Negative (Negative) COVID-19 Clin Com See Note 05/12/24 05/12/24 05/12/24 Range/Units 16:45 16:48 16:49 WBC (4.8-10.8) X10*3/uL RBC (4.60-5.80) X10*6/uL Hgb (14.0-18.0) g/dl Hct (42.0-52.0) % MCV (80.0-98.0) fL MCH (27.0-33.0) pg MCHC (31.0-36.0) g/dl RDW (11.0-16.0) % Plt Count (160-400) X10*3/uL MPV (9.4-12.4) fL Immature Gran % (Auto) (0.0-0.4) % Neut % (Auto) (45-73) % Lymph % (Auto) (20-40) % [place] % (Auto) (2-11) % Eos % (Auto) (0-4) % Baso % (Auto) (0-2) % Lymph # (Auto) (1.2-4.9) X10*3/uL [place] # (Auto) (0.1-1.2) X10*3/uL Eos # (Auto) (0.0-0.4) X10*3/uL Baso # (Auto) (0.0-0.2) X10*3/uL Abs Immat Gran (auto) (0.00-0.03) X10*3/uL Absolute Neuts (auto) (2.0-8.3) x10*3/uL Absolute Nucleated RBC (0.0-0.012) X10*3/uL Nucleated RBC % (auto) (0.0-0.2) /100WBC Hold Purple Top SEE NOTE Hold Blue Top VBG pH (7.32-7.43) VBG pCO2 mmHg VBG pO2 mmHg VBG HCO3 (22-26) mmol/L VBG O2 Saturation % VBG Base Excess mmol/L Sodium 132 L (135-145) mmol/L Potassium 4.5 (3.3-5.1) mmol/L Chloride 73 L (96-108) mmol/L Carbon Dioxide 51 H* (22-29) mmol/L Anion Gap TNP BUN 16 (9-16) mg/dL Creatinine 0.74 (0.5-1.4) mg/dL Estim Creat Clear Calc 102.5 Estimated GFR > 60 Random Glucose 112 (60-115) mg/dL Lactic Acid (0.5-2.0) mmol/L Calcium 10.0 D (8.4-10.2) mg/dL Magnesium 1.9 (1.6-2.6) mg/dL Total Bilirubin 0.7 (0.0-1.0) mg/dL Direct Bilirubin 0.3 (0.0-0.5) mg/dL AST 21 (5-37) U/L ALT 10 (0-40) U/L Alkaline Phosphatase 146 H (39-117) U/L Troponin I High Sens 10.6 D (<3.5-35.0) ng/L B-Natriuretic Peptide (<100) pg/mL Total Protein 7.5 (6.5-8.0) g/dL Albumin 3.1 L (3.5-5.0) g/dL COVID-19 (LADY) (Negative) COVID-19 Clin Com 05/12/24 Range/Units 16:58 WBC (4.8-10.8) X10*3/uL RBC (4.60-5.80) X10*6/uL Hgb (14.0-18.0) g/dl Hct (42.0-52.0) % MCV (80.0-98.0) fL MCH (27.0-33.0) pg MCHC (31.0-36.0) g/dl RDW (11.0-16.0) % Plt Count (160-400) X10*3/uL MPV (9.4-12.4) fL Immature Gran % (Auto) (0.0-0.4) % Neut % (Auto) (45-73) % Lymph % (Auto) (20-40) % [place] % (Auto) (2-11) % Eos % (Auto) (0-4) % Baso % (Auto) (0-2) % Lymph # (Auto) (1.2-4.9) X10*3/uL [place] # (Auto) (0.1-1.2) X10*3/uL Eos # (Auto) (0.0-0.4) X10*3/uL Baso # (Auto) (0.0-0.2) X10*3/uL Abs Immat Gran (auto) (0.00-0.03) X10*3/uL Absolute Neuts (auto) (2.0-8.3) x10*3/uL Absolute Nucleated RBC (0.0-0.012) X10*3/uL Nucleated RBC % (auto) (0.0-0.2) /100WBC Hold Purple Top Hold Blue Top SEE NOTE VBG pH (7.32-7.43) VBG pCO2 mmHg VBG pO2 mmHg VBG HCO3 (22-26) mmol/L VBG O2 Saturation % VBG Base Excess mmol/L Sodium (135-145) mmol/L Potassium (3.3-5.1) mmol/L Chloride (96-108) mmol/L Carbon Dioxide (22-29) mmol/L Anion Gap BUN (9-16) mg/dL Creatinine (0.5-1.4) mg/dL Estim Creat Clear Calc Estimated GFR Random Glucose (60-115) mg/dL Lactic Acid (0.5-2.0) mmol/L Calcium (8.4-10.2) mg/dL Magnesium (1.6-2.6) mg/dL Total Bilirubin (0.0-1.0) mg/dL Direct Bilirubin (0.0-0.5) mg/dL AST (5-37) U/L ALT (0-40) U/L Alkaline Phosphatase (39-117) U/L Troponin I High Sens (<3.5-35.0) ng/L B-Natriuretic Peptide (<100) pg/mL Total Protein (6.5-8.0) g/dL Albumin (3.5-5.0) g/dL COVID-19 (LADY) (Negative) COVID-19 Clin Com Independent Interpretation I performed an independent interpretation of an: Plain X-Ray Radiology Impression Discussion of test interpretation with radiology: I have reviewed the radiologist's reading. Radiologist Impression: FINDINGS: Stable enlargement of the cardiomediastinal silhouette. Left-sided pacer with leads projecting over the expected location of the right atrium and right ventricle. Unchanged prominence of the central pulmonary vasculature. Slightly increased interstitial coarsening bilaterally. No focal consolidation. No pleural effusion or pneumothorax. No acute osseous findings. XR/XR chest 1V IMPRESSION: 1. Slightly increased interstitial coarsening which could be related with an infectious/inflammatory process of the small airways. No focal consolidation. No pleural effusion or pneumothorax. 2. Unchanged enlargement of the cardiomediastinal silhouette. 3. Stable prominence of the central pulmonary vasculature that could indicate pulmonary hypertension. Critical Care Time Critical Care Time Critical Care Time: Yes Total Critical Care Time: 60 Attestation: I have personally provided critical care time. Time includes review of lab data, radiology results, discussion with consultants, and monitoring for potential decompensation. Intervention performed as documented. Discharge Plan Discharge Clinical Impression: Hypoxic respiratory failure, Chronic lung disease, Hypothermia Patient Disposition: Left Against Medical Advice Instructions: COPD (Chronic Obstructive Pulmonary Disease) (ED), Acute Hypothermia (ED), Chronic Respiratory Failure (DC) Additional Instructions: Please follow-up with your primary care physician tomorrow. If you have any worsening or new symptoms, please return to the emergency room or call 911 Prescriptions: New prednisone 50 mg tablet 50 mg PO DAILY Qty: 5 0RF cefuroxime axetil 500 mg tablet 500 mg PO BID Qty: 14 0RF azithromycin 250 mg tablet 250 mg PO DAILY 4 Days Qty: 4 0RF Rx Instructions: start on day 2 of therapy No Action bumetanide 1 mg tablet 1 mg PO DAILY Qty: 30 4RF Protocol: Hold for SBP< HOLD for SBP < : 90 metoprolol succinate 50 mg tablet extended release 24 hr 50 mg PO DAILY Qty: 30 6RF Spiriva Respimat 2.5 mcg/actuation mist 2 puff PO DAILY Qty: 4 3RF Xarelto 20 mg tablet 20 mg PO DAILY Qty: 90 1RF Rx Instructions: must administer with evening meal atorvastatin 20 mg tablet 20 mg PO DAILY (DME) bedside commode Kit See Rx Instructions .Route Qty: 1 0RF Rx Instructions: As directed (DME) Ultra-Light Rollator Misc See Rx Instructions .Route Qty: 1 0RF Rx Instructions: As directed allopurinol 100 mg tablet 200 mg PO BEDTIME acetazolamide 250 mg tablet 250 mg PO BID 30 Days Qty: 60 5RF Rx Instructions: take on tablet twice daily for 30 days - medication started 02/09/24. Print Language: Upper Sorbian
[2024-05-12 16:07] LABS: MANUAL DIFF FLAG NO
[2024-05-12 16:12] LABS: VBG Base Excess 35.4 mmol/L; VBG HCO3 66 mmol/L (22-26); VBG pCO2 86 mmHg; VBG pH 7.49 (7.32-7.43); VBG pO2 49 mmHg
[2024-05-12 16:13] LABS: Venous Blood Gas Refer to POC result
[2024-05-12] MEDS: Albuterol Sulfate 2.5 MG, Albuterol/Iprat 2.5/0.5MG 3 ML 3 ML INHALE (16:19)
[2024-05-12 16:26] LABS: COVID-19 Test Negative (Negative); IDNOW Serial# 58CA691E
[2024-05-12 16:31] LABS: Lactic Acid 1.4 mmol/L (0.5-2.0)
[2024-05-12 16:40] LABS: B Type Natriuretic Peptide 198 pg/mL (<100)
[2024-05-12 17:00] LABS: Basophils Percent Auto 0.3 % (0-2); Eosinophils Absolute Auto 0.2 X10*3/uL (0.0-0.4); Eosinophils Percent Auto 1.9 % (0-4); Hematocrit 33.9 % (42.0-52.0); Hemoglobin 10.5 g/dl (14.0-18.0); Imm Gran Abs Auto 0.14 X10*3/uL (0.00-0.03); Imm Gran Pct Auto 1.4 % (0.0-0.4); Lymphocytes Absolute Auto 1.1 X10*3/uL (1.2-4.9); Lymphocytes Percent Auto 10.1 % (20-40); Mean Corpuscular Hemoglobin 30.9 pg (27.0-33.0); Mean Corpuscular Volume 99.7 fL (80.0-98.0); Mean Platelet Volume 10.7 fL (9.4-12.4); Monocytes Absolute Auto 0.6 X10*3/uL (0.1-1.2); Monocytes Percent Auto 5.9 % (2-11); Neutrophils Absolute Auto 8.3 x10*3/uL (2.0-8.3); Neutrophils Percent Auto 80.4 % (45-73); Platelet Count 245 X10*3/uL (160-400); Red Cell Distribution Width 16.6 % (11.0-16.0); White Blood Count 10.4 X10*3/uL (4.8-10.8)
[2024-05-12 17:17] LABS: Troponin-I High Sensitivity 10.6 ng/L (<3.5-35.0)
[2024-05-12 17:30] LABS: Alanine Aminotransferase 10 U/L (0-40); Albumin Level 3.1 g/dL (3.5-5.0); Alkaline Phosphatase 146 U/L (39-117); Aspartate Amino Transferase 21 U/L (5-37); Bilirubin Direct 0.3 mg/dL (0.0-0.5); Bilirubin Total 0.7 mg/dL (0.0-1.0); Blood Urea Nitrogen 16 mg/dL (9-16); Carbon Dioxide 51 mmol/L (22-29); Chloride 73 mmol/L (96-108); Creatinine Clr Calc Pharmacy 102.5; Estimated Glomerular Filt Rate > 60; Glucose Random 112 mg/dL (60-115); Magnesium 1.9 mg/dL (1.6-2.6); Potassium 4.5 mmol/L (3.3-5.1); Sodium 132 mmol/L (135-145); Total Protein 7.5 g/dL (6.5-8.0)
--- NOTE | 2024-05-12 18:34 | PC.NURSE ---
Pt enters my care- oxygen saturation only 82% on 4L turned up to 5L- oxygen saturation not responding.Pt placed back on oxymask
--- NOTE | 2024-05-12 18:50 | PC.NURSE ---
Addendum entered by Shelli Daigle 05/12/24 22:32: Provider aware of repeat low temp. Original Note: Pt rectal temp 94.5, does not feel cool to touch. Pt given 3 warm blankets, Dr. Rueda made aware.
[2024-05-12] MEDS: cefTRIAXone sodium 1 GM in 0.9 % Sodium Chloride 50 ML IV (19:41)
[2024-05-12] MEDS: Azithromycin 500 MG in 0.9 % Sodium Chloride 250 ML 125 MG IV (19:58)
--- NOTE | 2024-05-12 20:11 | PM.EVENT ---
Event Note Date of Service: 05/12/24 Event Note: I was asked to evaluate the patient for inpatient admission due to COPD exacerbation the setting of possible pneumonia. Patient states he has been coughing for years and no change in frequency of cough noted. He uses 4 L supplemental oxygen at baseline and was found to be hypoxic, unclear if he was using his oxygen at home while he was found to be hypoxic. Patient states he is feeling well and his oxygen requirement is now back to baseline, currently satting 90% on 4 L supplemental oxygen. No wheezing. Patient stated he would like to go home as he would feel more comfortable at home. States he feels that his breathing is back to baseline. Discussed with ER provider. Time Spent With Patient Time: Total time managing care of this patient today ____ minutes.
[2024-05-12] MEDS: methylPREDNISolone Sod Succ 125 MG/2 ML VIAL IVPUSH (22:14)
== END 2024-05-12 22:33 | disposition left against medical advice (07) ==
PROVIDERS: Physician Assistant; Emergency Provider Emergency Medicine
DX: J96.11 Chronic respiratory failure with hypoxia (principal); R05.9 Cough, unspecified; Z79.899 Other long term (current) drug therapy; T68.XXXA Hypothermia, initial encounter; X31.XXXA Exposure to excessive natural cold, initial encounter; J44.9 Chronic obstructive pulmonary disease, unspecified; I13.0 Hypertensive heart and chronic kidney disease with heart failure and stage 1 through stage 4 chronic kidney disease, or unspecified chronic kidney disease; N18.9 Chronic kidney disease, unspecified; I50.9 Heart failure, unspecified; I48.91 Unspecified atrial fibrillation; Z95.0 Presence of cardiac pacemaker
CPT/HCPCS: 36415; 71045; 80048; 80076; 82803; 83605; 83735; 83880; 84484; 85025; 87040; 87635; 92950; 93005; 94640; 96365; 96367; 96375; 99285; J0456; J0696; J2919

== ENCOUNTER 2024-05-20 13:15 | Inpatient (IN) | payer MEDICARE, SELFPAY ==
[2024-05-20] VITALS (8 sets, daily range): BP systolic 106–159; BP diastolic 51–85; PULSE 53–83; RESP 15–20; TEMP 34.9–35.1; O2SAT 93–98; BMI 37.4; BMI 37.8
--- NOTE | ~2024-05-20 | XR_ITS ---
EXAMINATION: XR CHEST CLINICAL INFORMATION: [place] failure COMPARISON: Chest x-ray May 20, 2000 TECHNIQUE: Frontal view of the chest was obtained. FINDINGS: Streaky bilateral opacities. No organized collection. No pneumothorax or pleural effusion. Enlarged cardiomediastinal silhouette. Left-sided pacemaker with intact atrial and ventricular leads. Soft tissues and osseous structures within normal limits. XR/XR chest 1V IMPRESSION: Cardiomegaly. Streaky bilateral opacities. Electronically signed by: Huy Montoya DO 05/23/2024 09:10 PM EDT
--- NOTE | ~2024-05-20 | CT_ITS ---
EXAMINATION: CT HEAD WITHOUT IV CONTRAST CLINICAL INFORMATION: Encephalopathy COMPARISON: None TECHNIQUE: Contiguous axial imaging was performed from the skull base to vertex without intravenous contrast. Sagittal and coronal reformatted images were obtained. This CT examination was performed using dose optimization techniques as appropriate, variously including the following: * Automated exposure control * Adjustment of mA and/or kV according to patient size (this includes techniques or standardized protocols for targeted exams where dose is matched to indication/reason for exam; i.e. extremities or head) Use of iterative reconstruction technique DLP: 1250 mGy-cm FINDINGS: No acute osseous or soft tissue abnormality. The mastoid air cells and visualized portions of the paranasal sinuses are well aerated. There is an apparent hypodensity in the left occipital lobe with loss of phillips-white matter differentiation which could reflect an evolving acute infarct. There is no evidence of acute intracranial hemorrhage. No abnormal mass effect or midline shift is seen. No extra-axial fluid collections are identified. No hydrocephalus. No significant volume loss. CT/CT head/brain wo IV con IMPRESSION: 1. Apparent hypodensity and loss of phillips-white matter differentiation in the left occipital lobe could reflect an evolving acute infarct, however this region of the brain is particularly susceptible to artifact. This could be further evaluated with noncontrast MRI or repeat head CT if clinically indicated. 2. No other acute intracranial abnormality is identified. Above impression was communicated to ERIK Webb at 7:39pm Electronically signed by: Brendon Crawford MD 05/23/2024 07:42 PM EDT
--- NOTE | ~2024-05-20 | CT_ITS ---
EXAMINATION: CT CHEST WITHOUT CONTRAST CLINICAL INFORMATION: Acute respiratory failure COMPARISON: Multiple prior chest x-rays as recently as 05/23/2024 TECHNIQUE: Multidetector volumetric CT imaging of the chest was done. Axial MIP volume rendering provided. Sagittal and coronal reformatted images were obtained. This CT examination was performed using dose optimization techniques as appropriate, variously including the following: *Automated exposure control *Adjustment of mA and/or kV according to patient size (this includes techniques or standardized protocols for targeted exams where dose is matched to indication/reason for exam; i.e. extremities or head) *Use of iterative reconstruction technique DLP: 1250 mGy-cm FINDINGS: LUNGS: Respiratory motion limits evaluation. There is mild apical predominant emphysema. There are scattered areas of groundglass attenuation, consolidation, and bronchial wall thickening throughout the lungs. MEDIASTINUM: The heart is enlarged. There is a left chest tube and cardiac device. There are moderate coronary artery calcifications. CORONARY ARTERY CALCIFICATION: Present PLEURA: There is no pleural effusion. No pleural mass or thickening. AXILLA: No lymphadenopathy. UPPER ABDOMEN: Multiple calcified granulomas throughout the liver. OSSEOUS STRUCTURES: Degenerative disease of the thoracic spine. CT/CT chest wo IV con IMPRESSION: Respiratory motion limits evaluation. Scattered areas of groundglass attenuation, consolidation, and bronchial wall thickening throughout the lungs. Findings may be infectious/inflammatory in etiology. Fleischner guidelines were followed. Electronically signed by: Mercedes Ren MD 05/24/2024 07:37 AM EDT
--- NOTE | ~2024-05-20 | XR_ITS ---
EXAMINATION: XR CHEST CLINICAL INFORMATION: Weakness COMPARISON: Chest radiograph 05/12/2024 TECHNIQUE: Frontal view of the chest was obtained. FINDINGS: Dual lead left chest wall pacemaker with intracardiac leads projecting over the right atrium and right ventricle, similar to prior exam. The lungs are mildly hypoexpanded. Again noted patchy bilateral airspace opacities. Similar central vascular congestion. No pleural effusions or pneumothorax. The cardiomediastinal silhouette is enlarged and unchanged. Degenerative changes of the thoracic spine. XR/XR chest 1V IMPRESSION: Again noted bilateral patchy airspace opacities which may be secondary to infectious or inflammatory etiology. Similar central vascular congestion. Electronically signed by: Simone Edwards MD 05/20/2024 03:28 PM EDT
--- NOTE | 2024-05-20 13:26 | ED.GENADULT ---
HPI - General Adult General Chief complaint: General Medical Stated complaint: WEAK,CONF W/HALLUCINATIONS,FREQ URINE W/ODER Time Seen by Provider: 05/20/24 13:26 History of Present Illness ED Provider: Jose MORALEZ narrative: The patient is a 78-year-old male with multiple medical problems. He is morbidly obese. He has chronic lung disease and has chronic home oxygen at 3.5-4 L. He has a history of atrial fibrillation and is on oral anticoagulation with rivaroxaban. He lives at home with his . Apparently a visiting nurse came to the house today and felt that he might be slightly confused. An ambulance was called and he was brought to the hospital. The patient denies any fever, sweats, chills. He denies any abnormal shortness of breath. He says that he feels that his legs have gotten gradually weaker over the last 6 months and he is having increasing difficulties getting around. The patient was seen here in the emergency room 8 days ago. At that time it seemed as though he was mildly hypoxic during home physical therapy and he was sent to the emergency room. Here in the emergency room his evaluation revealed compensated chronic hypercapnia. He was offered hospitalization for an exacerbation of his chronic lung disease but ultimately insisted on being discharged. At that visit he was also noted to be mildly hypothermic with a temperature of 94.7 degrees. Related Data Home Medications ?Medication ?Instructions ?Recorded ?Confirmed allopurinol 100 mg tablet 200 mg PO BEDTIME 07/25/20 05/20/24 atorvastatin 20 mg tablet 20 mg PO DAILY 06/06/21 05/20/24 cholecalciferol (vitamin D3) 25 25 mcg PO DAILY 05/20/24 05/20/24 mcg (1,000 unit) tablet (Vitamin D3) Previous Rx's ?Medication ?Instructions ?Recorded commode (bedside commode) #1 ea 12/03/21 walker (Ultra-Light Rollator mis) #1 ea 12/03/21 bumetanide 1 mg tablet 1 mg PO DAILY #30 tabs 10/07/23 metoprolol succinate 50 mg 50 mg PO DAILY #30 tabs 12/02/23 tablet,extended release 24 hr Spiriva Respimat 2.5 mcg/actuation 2 puff PO DAILY #4 grams 01/09/24 solution for inhalation (tiotropium bromide) rivaroxaban 20 mg tablet (Xarelto) 20 mg PO DAILY #90 tabs 02/04/24 acetazolamide 250 mg tablet 250 mg PO BID Respiratory failure 05/11/24 30 days #60 tabs Allergies Allergy/AdvReac Type Severity Reaction Status Date / Time No Known Allergies Allergy Verified 05/20/24 13:36 [No Known Allergies*] Review of Systems Review of Systems: Yes all other systems are reviewed and are negative FOR[facility], LAT[facility] Past Medical History Medical History Respiratory failure with hypoxia and hypercapnia Hypoventilation syndrome Persistent atrial fibrillation Paroxysmal atrial fibrillation Fatigue COPD (chronic obstructive pulmonary disease) Hypoxemia requiring supplemental oxygen Restrictive lung disease Morbid obesity Chronic heart failure with preserved ejection fraction (HFpEF) Interstitial lung disease Pacemaker (~2021) Pulmonary fibrosis First degree AV block Chronic hyponatremia CHF (congestive heart failure) Atrial fibrillation with slow ventricular response COPD (chronic obstructive pulmonary disease) Restrictive lung disease Hypoxemia Morbid obesity IPF (idiopathic pulmonary fibrosis) Aortic stenosis CKD (chronic kidney disease) HTN (hypertension) Surgical History History of pacemaker (~2021) History of surgery on wrist Family History Family History Father Cancer Mother Dementia Social History Social History Household Members: Spouse Housing: House Do you presently have visiting nurse or other home services: Yes (pt unsure if aid or VNA) Alcohol intake: never Patient Tobacco Use Status: Never used Tobacco Advance Directives Date on File: 06/08/21 service: No Current occupational status: retired Physical Exam ED Vital Signs: Vital Signs - 24 hr 05/20/24 13:32 05/20/24 15:11 05/20/24 16:33 Temperature 95.0 F L 94.8 F L Pulse Rate 61 53 55 Respiratory Rate 18 16 15 Blood Pressure 121/70 113/57 L Pulse Oximetry 98 98 Oxygen Delivery Method Nasal Cannula Nasal Cannula Oxygen Flow Rate 3 05/20/24 18:23 Temperature 94.8 F L Pulse Rate Respiratory Rate Blood Pressure Pulse Oximetry Oxygen Delivery Method Oxygen Flow Rate BMI result Body Mass Index 37.4 Const Other: The patient is a morbidly obese chronically ill-appearing 78-year-old. He is on oxygen. He is awake but has a very vague demeanor and affect.. He does not seem to be in acute pain or respiratory distress HENMT Other: Face is symmetrical. Mucous membranes moist. Airway is clear. Eyes Other: Pupils are round equal, conjunctivae clear, extraocular movements intact. Neck Other: The neck is fairly thick. No apparent JVD. No masses. Resp Other: Diminished air entry bilaterally. Possibly some mild crackles at the bases. No hans wheezes. Cardio Rate: regular rate Rhythm: regular rhythm Heart sounds: S1 normal heart sound present and S2 normal heart sound present GI Other: The patient has a large abdomen that does not seem acutely tender. Skin Other: Skin is pale and dry. Neuro Other: The patient is awake but seems sleepy and prefers to have his eyes closed. He responds to verbal stimuli. He has a very vague demeanor although he seems quite well oriented to some things.. No facial asymmetry. Speech is fairly clear. He seems generally weak but does not seem to have any lateralizing findings. Extrem Other: Both feet have palpable dorsalis pedis pulses. Feet feel cool. No pitting edema Medications Administered Generic Name Dose Route Start Last Admin Trade Name Freq PRN Reason Stop Dose Admin Allopurinol 200 mg 05/20/24 21:00 05/20/24 21:10 Allopurinol 100 Mg Tablet PO 200 mg BEDTIME MAIRFER Administration Docusate Sodium 100 mg 05/20/24 21:00 05/20/24 21:10 Docusate Sodium 100 Mg Capsule PO 100 mg BID MARIFER Administration Piperacillin Sod/Tazobactam 50 mls @ 100 mls/hr 05/20/24 18:45 05/20/24 20:28 Sod 3.375 gm/ Sodium Chloride IV Infused Q6H MARIFER Infusion Polyethylene Glycol 17 gm 05/20/24 19:15 05/20/24 20:24 Polyethylene Glycol 3350 17 Gm Powd.Pack PO 17 gm DAILY MARIFER Administration Rivaroxaban 20 mg 05/20/24 19:15 05/20/24 21:10 Rivaroxaban 20 Mg Tablet PO 20 mg DAILY@1730 MARIFER Administration Sodium Chloride 3 ml 05/21/24 00:00 05/20/24 21:11 0.9 % Sodium Chloride Flush 3 Ml Syringe IVFLUSH 3 ml QSHIFT MARIFER Administration Tiotropium [place] 2 puff 05/20/24 19:00 05/20/24 20:09 Tiotropium [place] 2.5 Mcg 1 Puff/2.5 Mcg Mist.Inhal INHALE Not Given RDAILY MARIFER Discontinued Medications Generic Name Dose Route Start Last Admin Trade Name Jayde PRN Reason Stop Dose Admin Albuterol/Ipratropium 3 ml 05/20/24 16:16 05/20/24 16:32 Albuterol/Iprat 2.5/0.5mg 3 Ml Ampul.Neb INHALE 05/20/24 16:17 3 ml ONCE ONE Administration Sodium Chloride 100 mls @ 100 mls/hr 05/20/24 15:39 05/20/24 16:09 Ns IV 05/20/24 16:38 Not Given ONCE ONE Sodium Chloride 100 mls @ 100 mls/hr 05/20/24 15:39 05/20/24 16:10 Ns IV 05/20/24 16:38 Not Given ONCE ONE Lactulose 30 gm 05/20/24 19:14 05/20/24 20:22 Lactulose 20 Gm/30 Ml Solution PO 05/20/24 19:15 30 gm ONCE ONE Administration Medical Decision Making Medical Decision Making MDM Narrative: The patient is very chronically ill 78-year-old whose called 911 because he has seemed increasingly confused at home over the last few days and also because he seems to possibly have been having hallucinations. Here in the emergency room the patient had a very vague demeanor but seemed oriented to some aspects of his care such as the fact that he was able to tell me that he was anticoagulated on Xarelto when I asked him if he was on an anticoagulant. The patient has a white blood count elevation of 16.8. When he was here 8 days ago his white count was 10.4. It is possible this elevation in his white count could be related to his recent prednisone use. His venous blood gas shows a pH of 7.49 with a pCO2 of 72. His serum bicarb is 48. I believe he has a chronically compensated CO2 retention. His CRP is mildly elevated at 3.2. His lactate is normal at 0.7. His rectal temperature was 94.8 degrees. My overall impression is that the patient seems to be gradually failing but I am not convinced that he is acutely septic. His urinalysis shows no ketones. No sign of infection. Chest x-ray is unchanged from 8 days ago. Blood cultures have been drawn but after discussing the case with the hospitalist we will hold off any antibiotics for now as it is not clear that an infection is present. The patient will be admitted for further evaluation. Lab Data 05/20/24 14:59 05/20/24 15:54 Labs: Lab Results 05/20/24 05/20/24 05/20/24 Range/Units 14:59 15:00 15:05 WBC 16.8 H (4.8-10.8) X10*3/uL RBC 3.21 L (4.60-5.80) X10*6/uL Hgb 10.0 L (14.0-18.0) g/dl Hct 30.2 L (42.0-52.0) % MCV 94.1 (80.0-98.0) fL MCH 31.2 (27.0-33.0) pg MCHC 33.1 (31.0-36.0) g/dl RDW 16.0 (11.0-16.0) % Plt Count 169 D (160-400) X10*3/uL MPV 11.1 (9.4-12.4) fL Immature Gran % (Auto) 3.1 H (0.0-0.4) % Neut % (Auto) 80.3 H (45-73) % Lymph % (Auto) 8.7 L (20-40) % Wallace % (Auto) 5.0 (2-11) % Eos % (Auto) 2.7 (0-4) % Baso % (Auto) 0.2 (0-2) % Lymph # (Auto) 1.5 (1.2-4.9) X10*3/uL Wallace # (Auto) 0.8 (0.1-1.2) X10*3/uL Eos # (Auto) 0.5 H (0.0-0.4) X10*3/uL Baso # (Auto) 0.0 (0.0-0.2) X10*3/uL Abs Immat Gran (auto) 0.53 H (0.00-0.03) X10*3/uL Absolute Neuts (auto) 13.5 H (2.0-8.3) x10*3/uL Absolute Nucleated RBC 0.050 H (0.0-0.012) X10*3/uL Nucleated RBC % (auto) 0.3 H (0.0-0.2) /100WBC VBG pH 7.49 H (7.32-7.43) VBG pCO2 72 mmHg VBG pO2 47 mmHg VBG HCO3 55 H (22-26) mmol/L VBG O2 Saturation 81.0 % VBG Base Excess 27.0 mmol/L Sodium (135-145) mmol/L Potassium (3.3-5.1) mmol/L Chloride (96-108) mmol/L Carbon Dioxide (22-29) mmol/L Anion Gap (12-20) BUN (9-16) mg/dL Creatinine (0.5-1.4) mg/dL Estim Creat Clear Calc Estimated GFR Random Glucose (60-115) mg/dL Lactic Acid (0.5-2.0) mmol/L Calcium (8.4-10.2) mg/dL Magnesium (1.6-2.6) mg/dL Total Bilirubin (0.0-1.0) mg/dL Direct Bilirubin (0.0-0.5) mg/dL AST (5-37) U/L ALT (0-40) U/L Alkaline Phosphatase (39-117) U/L Troponin I High Sens 17.4 D (<3.5-35.0) ng/L C-Reactive Protein (< or = 0.50) mg/dL B-Natriuretic Peptide 116 H (<100) pg/mL Total Protein (6.5-8.0) g/dL Albumin (3.5-5.0) g/dL TSH 2.05 (0.32-4.0) uIU/mL Random Cortisol 18.0 ug/dL Urine Color Urine Appearance Urine pH (5.0-9.0) Ur Specific [place] (1.005-1.025) Urine Protein (Neg-Trace) mg/dL Urine Glucose (UA) (Negative) mg/dL Urine Ketones (Negative) mg/dL Urine Blood (Negative) Urine Nitrite (Negative) Ur Leukocyte Esterase (Negative) Urine RBC (0-2) /HPF Urine WBC (0-5) /HPF Ur Squamous Epith Cells (0-2) /HPF Urine Bacteria (None Seen) Hyaline Casts (0-2) /LPF Urine Opiates Screen (Not Detect) Ur Buprenorphine Scrn (Not Detect) ng/mL Ur Oxycodone Screen (Not Detect) ng/mL Urine Methadone Screen (Not Detect) ng/mL Urine Fentanyl Screen (Not Detect) Ur Barbiturates Screen (Not Detect) Ur Phencyclidine Scrn (Not Detect) Ur Amphetamines Screen (Not Detect) U Benzodiazepines Scrn (Not Detect) Urine Cocaine Screen (Not Detect) U Marijuana (THC) Screen (Not Detect) Ethyl Alcohol mg/dL Influenza Type A (PCR) NEGATIVE (Negative) Influenza Type B (PCR) NEGATIVE (Negative) RSV RNA Qual (PCR) NEGATIVE (Negative) SARS-CoV-2 RNA (RT-PCR) NEGATIVE (Negative) Crossmatch 05/20/24 05/20/24 05/20/24 Range/Units 15:54 16:28 17:12 WBC (4.8-10.8) X10*3/uL RBC (4.60-5.80) X10*6/uL Hgb (14.0-18.0) g/dl Hct (42.0-52.0) % MCV (80.0-98.0) fL MCH (27.0-33.0) pg MCHC (31.0-36.0) g/dl RDW (11.0-16.0) % Plt Count (160-400) X10*3/uL MPV (9.4-12.4) fL Immature Gran % (Auto) (0.0-0.4) % Neut % (Auto) (45-73) % Lymph % (Auto) (20-40) % Wallace % (Auto) (2-11) % Eos % (Auto) (0-4) % Baso % (Auto) (0-2) % Lymph # (Auto) (1.2-4.9) X10*3/uL Wallace # (Auto) (0.1-1.2) X10*3/uL Eos # (Auto) (0.0-0.4) X10*3/uL Baso # (Auto) (0.0-0.2) X10*3/uL Abs Immat Gran (auto) (0.00-0.03) X10*3/uL Absolute Neuts (auto) (2.0-8.3) x10*3/uL Absolute Nucleated RBC (0.0-0.012) X10*3/uL Nucleated RBC % (auto) (0.0-0.2) /100WBC VBG pH (7.32-7.43) VBG pCO2 mmHg VBG pO2 mmHg VBG HCO3 (22-26) mmol/L VBG O2 Saturation % VBG Base Excess mmol/L Sodium 128 L (135-145) mmol/L Potassium 3.5 D (3.3-5.1) mmol/L Chloride 75 L (96-108) mmol/L Carbon Dioxide 48 H* (22-29) mmol/L Anion Gap 9 L (12-20) BUN 26 H (9-16) mg/dL Creatinine 0.84 (0.5-1.4) mg/dL Estim Creat Clear Calc 90.5 Estimated GFR > 60 Random Glucose 122 H (60-115) mg/dL Lactic Acid 0.7 (0.5-2.0) mmol/L Calcium 9.5 (8.4-10.2) mg/dL Magnesium 1.9 (1.6-2.6) mg/dL Total Bilirubin 0.9 (0.0-1.0) mg/dL Direct Bilirubin 0.4 (0.0-0.5) mg/dL AST 25 (5-37) U/L ALT 15 (0-40) U/L Alkaline Phosphatase 132 H (39-117) U/L Troponin I High Sens (<3.5-35.0) ng/L C-Reactive Protein 3.21 H (< or = 0.50) mg/dL B-Natriuretic Peptide (<100) pg/mL Total Protein 6.8 (6.5-8.0) g/dL Albumin 3.2 L (3.5-5.0) g/dL TSH (0.32-4.0) uIU/mL Random Cortisol ug/dL Urine Color Urine Appearance Urine pH (5.0-9.0) Ur Specific [place] (1.005-1.025) Urine Protein (Neg-Trace) mg/dL Urine Glucose (UA) (Negative) mg/dL Urine Ketones (Negative) mg/dL Urine Blood (Negative) Urine Nitrite (Negative) Ur Leukocyte Esterase (Negative) Urine RBC (0-2) /HPF Urine WBC (0-5) /HPF Ur Squamous Epith Cells (0-2) /HPF Urine Bacteria (None Seen) Hyaline Casts (0-2) /LPF Urine Opiates Screen Not Detected (Not Detect) Ur Buprenorphine Scrn Not Detected (Not Detect) ng/mL Ur Oxycodone Screen Not Detected (Not Detect) ng/mL Urine Methadone Screen Not Detected (Not Detect) ng/mL Urine Fentanyl Screen Not Detected (Not Detect) Ur Barbiturates Screen Not Detected (Not Detect) Ur Phencyclidine Scrn Not Detected (Not Detect) Ur Amphetamines Screen Not Detected (Not Detect) U Benzodiazepines Scrn Not Detected (Not Detect) Urine Cocaine Screen Not Detected (Not Detect) U Marijuana (THC) Screen Not Detected (Not Detect) Ethyl Alcohol < 10 mg/dL Influenza Type A (PCR) (Negative) Influenza Type B (PCR) (Negative) RSV RNA Qual (PCR) (Negative) SARS-CoV-2 RNA (RT-PCR) (Negative) Crossmatch See Detail 05/20/24 Range/Units 17:47 WBC (4.8-10.8) X10*3/uL RBC (4.60-5.80) X10*6/uL Hgb (14.0-18.0) g/dl Hct (42.0-52.0) % MCV (80.0-98.0) fL MCH (27.0-33.0) pg MCHC (31.0-36.0) g/dl RDW (11.0-16.0) % Plt Count (160-400) X10*3/uL MPV (9.4-12.4) fL Immature Gran % (Auto) (0.0-0.4) % Neut % (Auto) (45-73) % Lymph % (Auto) (20-40) % Wallace % (Auto) (2-11) % Eos % (Auto) (0-4) % Baso % (Auto) (0-2) % Lymph # (Auto) (1.2-4.9) X10*3/uL Wallace # (Auto) (0.1-1.2) X10*3/uL Eos # (Auto) (0.0-0.4) X10*3/uL Baso # (Auto) (0.0-0.2) X10*3/uL Abs Immat Gran (auto) (0.00-0.03) X10*3/uL Absolute Neuts (auto) (2.0-8.3) x10*3/uL Absolute Nucleated RBC (0.0-0.012) X10*3/uL Nucleated RBC % (auto) (0.0-0.2) /100WBC VBG pH (7.32-7.43) VBG pCO2 mmHg VBG pO2 mmHg VBG HCO3 (22-26) mmol/L VBG O2 Saturation % VBG Base Excess mmol/L Sodium (135-145) mmol/L Potassium (3.3-5.1) mmol/L Chloride (96-108) mmol/L Carbon Dioxide (22-29) mmol/L Anion Gap (12-20) BUN (9-16) mg/dL Creatinine (0.5-1.4) mg/dL Estim Creat Clear Calc Estimated GFR Random Glucose (60-115) mg/dL Lactic Acid (0.5-2.0) mmol/L Calcium (8.4-10.2) mg/dL Magnesium (1.6-2.6) mg/dL Total Bilirubin (0.0-1.0) mg/dL Direct Bilirubin (0.0-0.5) mg/dL AST (5-37) U/L ALT (0-40) U/L Alkaline Phosphatase (39-117) U/L Troponin I High Sens (<3.5-35.0) ng/L C-Reactive Protein (< or = 0.50) mg/dL B-Natriuretic Peptide (<100) pg/mL Total Protein (6.5-8.0) g/dL Albumin (3.5-5.0) g/dL TSH (0.32-4.0) uIU/mL Random Cortisol ug/dL Urine Color Yellow Urine Appearance Clear Urine pH 8.0 (5.0-9.0) Ur Specific [place] 1.010 (1.005-1.025) Urine Protein 30 (1+) H (Neg-Trace) mg/dL Urine Glucose (UA) Negative (Negative) mg/dL Urine Ketones Negative (Negative) mg/dL Urine Blood Negative (Negative) Urine Nitrite Negative (Negative) Ur Leukocyte Esterase Negative (Negative) Urine RBC 0-2 (0-2) /HPF Urine WBC 0-5 (0-5) /HPF Ur Squamous Epith Cells 0-2 (0-2) /HPF Urine Bacteria None Seen (None Seen) Hyaline Casts 0-2 (0-2) /LPF Urine Opiates Screen (Not Detect) Ur Buprenorphine Scrn (Not Detect) ng/mL Ur Oxycodone Screen (Not Detect) ng/mL Urine Methadone Screen (Not Detect) ng/mL Urine Fentanyl Screen (Not Detect) Ur Barbiturates Screen (Not Detect) Ur Phencyclidine Scrn (Not Detect) Ur Amphetamines Screen (Not Detect) U Benzodiazepines Scrn (Not Detect) Urine Cocaine Screen (Not Detect) U Marijuana (THC) Screen (Not Detect) Ethyl Alcohol mg/dL Influenza Type A (PCR) (Negative) Influenza Type B (PCR) (Negative) RSV RNA Qual (PCR) (Negative) SARS-CoV-2 RNA (RT-PCR) (Negative) Crossmatch Discharge Plan Discharge Clinical Impression: Chronic respiratory failure with hypoxia Patient Disposition: Admitted As Inpatient Interventions: Admission Worksheet (ED) Last Done: 05/20/24 19:26 Discharge Date/Time: 05/20/24 20:43
--- NOTE | 2024-05-20 13:39 | ECG_ITS ---
Test Reason : weakness Blood Pressure : / mmHG Vent. Rate : 058 BPM Atrial Rate : 000 BPM P-R Int : 000 ms QRS Dur : 112 ms QT Int : 444 ms P-R-T Axes : 000 -36 122 degrees QTc Int : 435 ms Atrial fibrillation with slow ventricular response with frequent ventricular-paced complexes Left axis deviation Incomplete left bundle branch block Left ventricular hypertrophy with repolarization abnormality ( R in aVL , [place] product ) Abnormal ECG When compared with ECG of 12-MAY-2024 16:22, Vent. rate has increased BY 3 BPM Referred By: Emiliano Garcia Electronically Signed By:DARON AGYTAN
--- NOTE | 2024-05-20 13:47 | PC.NURSE ---
left knee tender to movement, swollen. Pt also reports left sided neck pain
[2024-05-20 15:08] LABS: MANUAL DIFF FLAG NO
[2024-05-20 15:10] LABS: VBG HCO3 55 mmol/L (22-26); VBG pCO2 72 mmHg; VBG pH 7.49 (7.32-7.43); VBG pO2 47 mmHg
[2024-05-20 15:13] LABS: Basophils Percent Auto 0.2 % (0-2); Eosinophils Absolute Auto 0.5 X10*3/uL (0.0-0.4); Eosinophils Percent Auto 2.7 % (0-4); Hematocrit 30.2 % (42.0-52.0); Imm Gran Abs Auto 0.53 X10*3/uL (0.00-0.03); Imm Gran Pct Auto 3.1 % (0.0-0.4); Lymphocytes Absolute Auto 1.5 X10*3/uL (1.2-4.9); Lymphocytes Percent Auto 8.7 % (20-40); Mean Corpuscular HGB Conc 33.1 g/dl (31.0-36.0); Mean Corpuscular Hemoglobin 31.2 pg (27.0-33.0); Mean Corpuscular Volume 94.1 fL (80.0-98.0); Mean Platelet Volume 11.1 fL (9.4-12.4); Monocytes Absolute Auto 0.8 X10*3/uL (0.1-1.2); NRBC Pct Auto 0.3 /100WBC (0.0-0.2); Neutrophils Absolute Auto 13.5 x10*3/uL (2.0-8.3); Neutrophils Percent Auto 80.3 % (45-73); Platelet Count 169 X10*3/uL (160-400); Red Blood Count 3.21 X10*6/uL (4.60-5.80); White Blood Count 16.8 X10*3/uL (4.8-10.8)
--- NOTE | 2024-05-20 15:15 | PC.NURSE ---
pt is tired, somewhat lethargic. answers questions quietly when asked and goes back to sleeping. pt hypothermic, aware and requested to bundle pt up with warm blankets
[2024-05-20 15:34] LABS: B Type Natriuretic Peptide 116 pg/mL (<100)
[2024-05-20 15:36] LABS: Troponin-I High Sensitivity 17.4 ng/L (<3.5-35.0)
[2024-05-20 15:49] LABS: Influenza A PCR NEGATIVE (Negative); Influenza B PCR NEGATIVE (Negative); Resp Syncy Virus RNA Qual PCR NEGATIVE (Negative); SARS COV2 PCR INHOUSE NEGATIVE (Negative)
[2024-05-20 15:50] LABS: Thyroid Stimulating Hormone 2.05 uIU/mL (0.32-4.0)
[2024-05-20 16:29] LABS: Alanine Aminotransferase 15 U/L (0-40); Albumin Level 3.2 g/dL (3.5-5.0); Alkaline Phosphatase 132 U/L (39-117); Anion Gap 9 (12-20); Aspartate Amino Transferase 25 U/L (5-37); Bilirubin Direct 0.4 mg/dL (0.0-0.5); Bilirubin Total 0.9 mg/dL (0.0-1.0); Blood Urea Nitrogen 26 mg/dL (9-16); C Reactive Protein 3.21 mg/dL (< or = 0.50); Calcium 9.5 mg/dL (8.4-10.2); Carbon Dioxide 48 mmol/L (22-29); Chloride 75 mmol/L (96-108); Creatinine Clr Calc Pharmacy 90.5; Estimated Glomerular Filt Rate > 60; Ethanol < 10 mg/dL; Glucose Random 122 mg/dL (60-115); Magnesium 1.9 mg/dL (1.6-2.6); Potassium 3.5 mmol/L (3.3-5.1); Sodium 128 mmol/L (135-145); Total Protein 6.8 g/dL (6.5-8.0)
[2024-05-20] MEDS: Albuterol/Iprat 2.5/0.5MG 3 ML AMPUL.NEB INHALE (16:32)
[2024-05-20 16:48] LABS: Lactic Acid 0.7 mmol/L (0.5-2.0)
[2024-05-20 17:31] LABS: Amphetamine Screen Urine Not Detected (Not Detect); Barbiturates, Urine Not Detected (Not Detect); Benzodiazepines Screen Urine Not Detected (Not Detect); Buprenorphine Scr Not Detected (Not Detect); Cannabinoid Screen Urine Not Detected (Not Detect); Cocaine Screen Urine Not Detected (Not Detect); Fentanyl, urine Not Detected (Not Detect); Methadone Screen, Urine Not Detected (Not Detect); Opiate Screen Urine Not Detected (Not Detect); Oxycodone Screen Urine Not Detected (Not Detect); Phencyclidine Screen Urine Not Detected (Not Detect)
--- NOTE | 2024-05-20 17:35 | P.HPHOSP_ITS ---
History of Present Illness Date of Service: 05/20/24 Attending physician on admission: [facility] Chief Complaint: AMS, hallucinations Pt is a 78-year-old male with a PMH significant for HFpEF, COPD, hypoventilation syndrome, chronic respiratory failure with hypoxia and hypercapnia chronically on 4 L home O2, chronic AFib with slow ventricular response on Xarelto, and s/p pacemaker in place who presents to the ED with?altered mental status and hallucinations x1 week. Patient initially presented to the ED 1 week ago on 05/12 for increasing shortness a breath and difficulty breathing. Was evaluated for possible inpatient admission for COPD exacerbation setting of possible pneumonia, though patient ultimately did not want to be admitted and was discharged home on prednisone, cefuroxime 500 mg b.i.d. x7 days, and azithromycin x5 days. Reports completed full course of antibiotics and steroids. Patient himself is alert and oriented x3, though occasionally makes nonsensical comments were speaks about people who were not in the room. Called patient's who states that he has been experiencing hallucinations for the past week that appear to be worsening with each day. For example, has been seeing people that are not there and believes that the TV is talking to him. Has had reduced p.o. intake, particularly of food. At times hands have been shaking and has had reduced strength. reports patient's strength has diminished especially in the past 6 months. Previously ambulated with walker in the home, though has not done this for the past few months. Also states patient has not had bowel movement for past week. Chronic SOB and cough appear at baseline. No reported nausea, vomiting, or pain. Patient himself denies any acute medical complaints. In the ED pt was hypothermic as low as 94.8, bradycardic at 53, and was soft BP as low as 113/57. Labs were significant for leukocytosis 16.8, stable anemia of 10.0/30.2, sodium 128, chloride 75, bicarb 48, anion gap 9, BUN 26, alk-phos 132, CRP 3.21 and albumin 3.2. TSH WNL. BNP 116. Troponin 17.4 (similar to previous). VBG with pH 7.49, pCO2 72, and bicarb 55, similar to previous. Tested negative for influenza a and B, RSV, and COVID. CXR redemonstrated bilateral patchy airspace opacities and central vascular congestion, similar to previous. EKG demonstrated AFib with slow ventricular response and frequent ventricular paced complexes. No evidence of significant ST elevations or depressions. Pt was treated with DuoNebs. Pt will be admitted to the hospital for treatment and further evaluation of acute metabolic encephalopathy with hypothermia of unclear etiology. Review of Systems 2 Review of Systems: Reported hallucinations x1 week Increasing weakness Reduced p.o. intake Chronic SOB and cough at baseline No nausea, vomiting, abdominal pain Denies chest pain/pressure, palpitations [facility] Medical History Respiratory failure with hypoxia and hypercapnia Hypoventilation syndrome Persistent atrial fibrillation Paroxysmal atrial fibrillation Fatigue COPD (chronic obstructive pulmonary disease) Hypoxemia requiring supplemental oxygen Restrictive lung disease Morbid obesity Chronic heart failure with preserved ejection fraction (HFpEF) Interstitial lung disease Pacemaker (~2021) Pulmonary fibrosis First degree AV block Chronic hyponatremia CHF (congestive heart failure) Atrial fibrillation with slow ventricular response COPD (chronic obstructive pulmonary disease) Restrictive lung disease Hypoxemia Morbid obesity IPF (idiopathic pulmonary fibrosis) Aortic stenosis CKD (chronic kidney disease) HTN (hypertension) Family History Father Cancer Mother Dementia Surgical History History of pacemaker (~2021) History of surgery on wrist Social History Household Members: Spouse Housing: House Do you presently have visiting nurse or other home services: No Alcohol intake: never Patient Tobacco Use Status: Never used Tobacco Advance Directives Date on File: 06/08/21 service: No Current occupational status: retired [employer] Allergies Allergy/AdvReac Type Severity Reaction Status Date / Time No Known Allergies Allergy Verified 05/20/24 13:36 [No Known Allergies*] Home Medications ?Medication ?Instructions ?Recorded ?Confirmed ?Last Taken ?Type allopurinol 100 mg tablet 200 mg PO BEDTIME 07/25/20 05/20/24 05/19/24 History atorvastatin 20 mg tablet 20 mg PO DAILY 06/06/21 05/20/24 05/19/24 History cholecalciferol (vitamin D3) 25 25 mcg PO DAILY 05/20/24 05/20/2424 History mcg (1,000 unit) tablet (Vitamin D3) Physical Exam 2 Vital Signs and Narrative: Vital Signs: Last Vital Signs Temp 94.8 F L 05/20/24 15:11 Pulse 55 05/20/24 16:33 Resp 15 05/20/24 16:33 BP 113/57 L 05/20/24 15:11 Pulse Ox 98 05/20/24 15:11 O2 Del Method Nasal Cannula 05/20/24 15:11 O2 Flow Rate 3 05/20/24 15:11 Oxygen Flow Rate 3 05/20/24 13:32 BMI result Body Mass Index 37.4 Constitutional: Somnolent though arousable and capable of answering questions appropriately. Head is bout, patient mumbling and difficult to understand. Sometimes takes multiple questions for patient to respond and be understood. In no acute distress. Mental Status: Oriented to person, place and time. Eyes: Pupils are equal, round, and reactive to light. Ear, Nose, and Throat: Oropharynx clear, mucous membranes moist. Ears and nose without deformities. Trachea midline. Respiratory: Clear to auscultation bilaterally, though diminished. No significant wheezing, rales, or rhonchi noted. Cardiovascular: Irregularly irregular rhythm. Gastrointestinal: Abdomen soft, non-tender, non-distended, obese. Normal bowel sounds. Neurologic: Cranial nerves II-XII are grossly intact bilaterally. No focal neurological deficits. Moves all extremities spontaneously, though with global weakness noted, especially of the lower extremities. Skin: Warm, dry. Extremities: No significant pitting edema. Psychiatric: Patient mostly answers appropriately, however sometimes appears to answer nonsensically though was difficult to understand. Also appears to be seeing people in the room who are not there. Results Labs 05/20/24 14:59 05/20/24 15:54 Labs: Laboratory Results - last 24 hr 05/20/24 05/20/24 05/20/24 14:59 15:00 15:05 MCV 94.1 MCH 31.2 MCHC 33.1 RDW 16.0 Plt Count 169 D MPV 11.1 Immature Gran % (Auto) 3.1 H Neut % (Auto) 80.3 H Lymph % (Auto) 8.7 L Traverse % (Auto) 5.0 Eos % (Auto) 2.7 Baso % (Auto) 0.2 Lymph # (Auto) 1.5 Traverse # (Auto) 0.8 Eos # (Auto) 0.5 H Baso # (Auto) 0.0 Abs Immat Gran (auto) 0.53 H Absolute Neuts (auto) 13.5 H Absolute Nucleated RBC 0.050 H Nucleated RBC % (auto) 0.3 H VBG pH 7.49 H VBG pCO2 72 VBG pO2 47 VBG HCO3 55 H VBG O2 Saturation 81.0 VBG Base Excess 27.0 Anion Gap Estim Creat Clear Calc Estimated GFR Random Glucose Lactic Acid Calcium Magnesium Total Bilirubin Direct Bilirubin AST ALT Alkaline Phosphatase Troponin I High Sens 17.4 D C-Reactive Protein B-Natriuretic Peptide 116 H Total Protein Albumin TSH 2.05 Urine Opiates Screen Ur Buprenorphine Scrn Ur Oxycodone Screen Urine Methadone Screen Urine Fentanyl Screen Ur Barbiturates Screen Ur Phencyclidine Scrn Ur Amphetamines Screen U Benzodiazepines Scrn Urine Cocaine Screen U Marijuana (THC) Screen Ethyl Alcohol Influenza Type A (PCR) NEGATIVE Influenza Type B (PCR) NEGATIVE RSV RNA Qual (PCR) NEGATIVE SARS-CoV-2 RNA (RT-PCR) NEGATIVE Crossmatch 05/20/24 05/20/24 05/20/24 15:54 16:28 17:12 MCV MCH MCHC RDW Plt Count MPV Immature Gran % (Auto) Neut % (Auto) Lymph % (Auto) Traverse % (Auto) Eos % (Auto) Baso % (Auto) Lymph # (Auto) Traverse # (Auto) Eos # (Auto) Baso # (Auto) Abs Immat Gran (auto) Absolute Neuts (auto) Absolute Nucleated RBC Nucleated RBC % (auto) VBG pH VBG pCO2 VBG pO2 VBG HCO3 VBG O2 Saturation VBG Base Excess Anion Gap 9 L Estim Creat Clear Calc 90.5 Estimated GFR > 60 Random Glucose 122 H Lactic Acid 0.7 Calcium 9.5 Magnesium 1.9 Total Bilirubin 0.9 Direct Bilirubin 0.4 AST 25 ALT 15 Alkaline Phosphatase 132 H Troponin I High Sens C-Reactive Protein 3.21 H B-Natriuretic Peptide Total Protein 6.8 Albumin 3.2 L TSH Urine Opiates Screen Not Detected Ur Buprenorphine Scrn Not Detected Ur Oxycodone Screen Not Detected Urine Methadone Screen Not Detected Urine Fentanyl Screen Not Detected Ur Barbiturates Screen Not Detected Ur Phencyclidine Scrn Not Detected Ur Amphetamines Screen Not Detected U Benzodiazepines Scrn Not Detected Urine Cocaine Screen Not Detected U Marijuana (THC) Screen Not Detected Ethyl Alcohol < 10 Influenza Type A (PCR) Influenza Type B (PCR) RSV RNA Qual (PCR) SARS-CoV-2 RNA (RT-PCR) Crossmatch See Detail Imaging Radiologist's Impressions: Impressions Chest X-Ray 05/20/24 14:15 IMPRESSION: Again noted bilateral patchy airspace opacities which may be secondary to infectious or inflammatory etiology. Similar central vascular congestion. Electronically signed by: Simone Edwards MD 05/20/2024 03:28 PM EDT RP Assessment and Plan (1) Acute metabolic encephalopathy: Status: Acute Plan Pt is a 78-year-old male with a PMH significant for HFpEF, COPD, hypoventilation syndrome, chronic respiratory failure with hypoxia and hypercapnia chronically on 4 L home O2, chronic AFib with slow ventricular response on Xarelto, and s/p pacemaker in place who presents to the ED with?altered mental status and hallucinations x1 week. Pt will be admitted to the hospital for treatment and further evaluation of acute metabolic encephalopathy with hypothermia of unclear etiology. Acute metabolic encephalopathy Patient with worsening hallucinations x1 week Unclear etiology: UA negative, CXR negative, blood cultures on 05/12/2024 negative Patient recently finished course of cefuroxime and azithromycin for CAP Patient does not meet sepsis criteria: Leukocytosis secondary to steroid use, finished prednisone taper 3 days prior Will empirically cover with Zosyn, started 05/20/2024 Check ammonia levels Follow up blood cultures Monitor mentation Hypothermia Patient has been hypothermic as low as 94.8 Unclear etiology: Infectious workup has been negative so far Will place in [facility] until reaches 98 degrees Treat as above Hyponatremia Sodium 128 at time of presentation Likely secondary to diuretic use in the setting of reduced p.o. intake Hold Diamox and bumetanide Follow sodium Monitor on telemetry Constipation Has not had bowel movement and past week Will give lactulose, Colace, and MiraLax Monitor I/O COPD Not in acute exacerbation Continue home inhalers DuoNebs p.r.n. Bradycardia HR noted to the in the 50s EKG showing increased ventricular paced complexes Patient asymptomatic Will hold metoprolol Monitor on telemetry Chronic AFib Continue Xarelto Hold metoprolol due to bradycardia HLD Continue statin Hx of gout Continue allopurinol Full Code Attending:?Dr. Chung DVT Prophylaxis: On Xarelto Pt will require a hospitalization of at least two nights for treatment of?acute metabolic encephalopathy of unclear etiology in the setting of hypothermia and hyponatremia. Patient requires inpatient level of care due to need for empiric IV antibiotic coverage, and close monitoring of vitals including temperature and labs including sodium. Quality Stroke Does the patient have a stroke diagnosis?: No VTE Prior VTE?: No VTE Risk Level:: Medical - moderate - high VTE Device Contraindication: Treatment Not Indicated VTE Drug Contraindication: N/A - Med Ordered
--- NOTE | 2024-05-20 17:36 | PC.NURSE ---
pt sleepy, lethargic. urine sample obtained via straight cath. sent to lab
--- NOTE | 2024-05-20 17:50 | PC.NURSE ---
UA ordered per Dr. Chung. sent to lab (HERNANDEZ sent earlier)
[2024-05-20 17:53] LABS: Venous Blood Gas Refer to POC result
[2024-05-20 17:59] LABS: Appearance Urine Clear; Color Urine Yellow; Glucose Urine UA Negative (Negative); Leukocyte Esterase Urine Negative (Negative); Nitrite Urine Negative (Negative); UMIC TRIGGER UACC YES; Urine Blood Negative (Negative); Urine Ketones Negative (Negative); Urine Protein 30 (1+) mg/dL (Neg-Trace)
--- NOTE | 2024-05-20 18:35 | PHA.MEDREC ---
Addendum entered by Shira Sumner RPh 05/20/24 19:10: med rec reviewed by [facility] Original Note: Pharmacy Consult ? Medication Reconciliation Pharmacy has completed the medication reconciliation. Spoke with Alexandria over the phone. Alexandria was able to confirm the patient medications and that he finished the Azithromycin, Cefuroxime and Prednisone regimens yesterday. He also never took any medications today according to Alexandria and he took everything yesterday.
[2024-05-20] MEDS: Piperacillin Sodium/Tazobactam 3.375 GM in 0.9 % Sodium Chloride 50 ML IV ×2 (19:04→23:53)
--- NOTE | 2024-05-20 19:05 | MHC.EDTECH ---
This Tech took over care as PCT @[id number]
[2024-05-20 19:43] LABS: Ammonia 28 umol/L (13-55)
[2024-05-20 20:21] LABS: Bacteria Urine None Seen (None Seen); Hyaline Casts Urine 0-2 /LPF (0-2); RBC Urine 0-2 /HPF (0-2); Squamous Epithelial Cell Urine 0-2 /HPF (0-2); WBC Urine 0-5 /HPF (0-5)
[2024-05-20] MEDS: Lactulose 20 GM/30 ML SOLUTION 30 GM PO (20:22)
[2024-05-20] MEDS: polyethylene glycoL 3350 17 GM POWD.PACK PO (20:24)
[2024-05-20] MEDS: allopurinoL 100 MG TABLET 200 MG PO (21:10)
[2024-05-20] MEDS: Docusate Sodium 100 MG CAPSULE PO (21:10)
[2024-05-20] MEDS: Rivaroxaban 20 MG TABLET PO (21:10)
[2024-05-20] MEDS: 0.9 % Sodium Chloride Flush 3 ML SYRINGE IVFLUSH (21:11)
[2024-05-21] VITALS (10 sets, daily range): BP systolic 105–153; BP diastolic 51–83; PULSE 65–99; RESP 16–20; TEMP 35.8–37.7; O2SAT 92–97
--- NOTE | 2024-05-21 05:02 | PC.NURSE ---
Addendum entered by Ivy Anguiano RN 05/21/24 06:38: VBG results back at 06:18, Dr. Johnson notified. No new orders at this time. Phlebotomy priority [employer] to travel writer and covering Dr. Johnson this morning at 06:27 with critical bicarb of 42 with MD acknowledgement response. No new orders at this time. Original Note: Patient admitted to s4 20:00 hour from ED, seen this admission for acute metabolic encephalopathy. Pt was confused but alert and easily arousable on arrival, A&Ox3. Pt on 3L nc on arrival (3-4L nc is pt's baseline per chart review and pt report). Pt hypothermic 95.0 MS on arrival, placed on bairhugger with Dr. Johnson written goal for 98 degrees to remove bairhugger. 03:00 hour patient temp normalized though pt noted to be more drowsy and confused, only A&Ox1 to self only. Bairhugger removed per parameters. Spo2 noted to be 85% on 3L nc though pt was observed breathing through his mouth, no distress noted. Of note, pt has hx of ILD, respiratory failure with hypoxia and hypercapnia and had elevated co2 on labs from ED. Pt was switched from nc to oxymask 2L and continuous spo2 monitoring placed with spo2 maintaining goal 88-92%. Despite sat improvement the pt remains drowsy and confused. Lung sounds unchanged from initial assessment. Breathing remains even and unlabored without distress. Covering Dr. Johnson notified, VBG ordered. Phlebotomy requested to bedside x2 for lab draw.
[2024-05-21 05:57] LABS: VBG Base Excess 27.1 mmol/L; VBG HCO3 52 mmol/L (22-26); VBG pCO2 54 mmHg; VBG pH 7.59 (7.32-7.43); VBG pO2 50 mmHg
[2024-05-21 05:57] LABS: Venous Blood Gas Refer to POC result
[2024-05-21 06:01] LABS: Hematocrit 28.7 % (42.0-52.0); Hemoglobin 9.8 g/dl (14.0-18.0); Mean Corpuscular HGB Conc 34.1 g/dl (31.0-36.0); Mean Corpuscular Hemoglobin 31.8 pg (27.0-33.0); Mean Corpuscular Volume 93.2 fL (80.0-98.0); Mean Platelet Volume 10.6 fL (9.4-12.4); NRBC Pct Auto 0.5 /100WBC (0.0-0.2); Platelet Count 166 X10*3/uL (160-400); Red Blood Count 3.08 X10*6/uL (4.60-5.80); Red Cell Distribution Width 16.6 % (11.0-16.0); White Blood Count 17.6 X10*3/uL (4.8-10.8)
[2024-05-21 06:28] LABS: Anion Gap 13 (12-20); Blood Urea Nitrogen 24 mg/dL (9-16); Calcium 9.4 mg/dL (8.4-10.2); Carbon Dioxide 42 mmol/L (22-29); Chloride 77 mmol/L (96-108); Creatinine Clr Calc Pharmacy 80.5; Estimated Glomerular Filt Rate > 60; Glucose Random 114 mg/dL (60-115); Potassium 4.1 mmol/L (3.3-5.1); Sodium 128 mmol/L (135-145)
[2024-05-21] MEDS: Piperacillin Sodium/Tazobactam 3.375 GM in 0.9 % Sodium Chloride 50 ML IV ×3 (06:43→17:22)
[2024-05-21] MEDS: 0.9 % Sodium Chloride Flush 3 ML SYRINGE IVFLUSH ×3 (08:31→21:18)
--- NOTE | 2024-05-21 11:08 | HO.PM.IMPN ---
Subjective Subjective Date of Service: 05/21/24 Interval History: f/u on con confusion, encephalopathy he is still confused and waxing and waning from periods of lucidity to confused state this morning while eating would barely stay awake, a vbg was done showing no chaged in CO2 hypothermia resolved Review of Systems Reported hallucinations x1 week Increasing weakness Reduced p.o. intake Chronic SOB and cough at baseline No nausea, vomiting, abdominal pain Denies chest pain/pressure, palpitations Physical Exam Vital Signs: Vital Signs: Last Vital Signs Temp 98.5 F 05/21/24 10:54 Pulse 90 05/21/24 10:54 Resp 20 05/21/24 10:54 BP 153/83 H 05/21/24 10:54 Pulse Ox 92 05/21/24 10:54 O2 Del Method Nasal Cannula 05/21/24 10:54 O2 Flow Rate 2 05/21/24 10:54 Oxygen Flow Rate 3 05/20/24 13:32 BMI result Body Mass Index 37.8 Objective Data Active Medications Acetaminophen (Acetaminophen 325 Mg Tablet) 650 mg PO Q6H PRN PRN Reason: Pain, Mild (Pain Scale 1-3), fever or headache Albuterol/Ipratropium (Albuterol/Iprat 2.5/0.5mg 3 Ml Ampul.Neb) 3 ml INHALE RQ4H WHILE AWAKE PRN PRN Reason: Shortness of Breath/Wheezing Allopurinol (Allopurinol 100 Mg Tablet) 200 mg PO BEDTIME [facility] Last Admin: 05/20/24 21:10 Dose: 200 mg Documented By: TISHA Atorvastatin Calcium (Atorvastatin Calcium 20 Mg Tablet) 20 mg PO DAILY [facility] Last Admin: 05/21/24 08:30 Dose: Not Given Documented By: ROBERT Non-Admin Reason: Patient Condition Contraindication Comments: pt too lethargic to swallow safely, at bedside Calcium Carbonate (Calcium Carbonate 750 Mg Tab.Chew) 750 mg PO Q4H PRN PRN Reason: Heartburn Docusate Sodium (Docusate Sodium 100 Mg Capsule) 100 mg PO BID [facility] Last Admin: 05/21/24 08:30 Dose: Not Given Documented By: ROBERT Non-Admin Reason: Patient Condition Contraindication Comments: pt too lethargic to swallow safely, at bedside Piperacillin Sod/Tazobactam (Sod 3.375 gm/ Sodium Chloride) 50 mls @ 100 mls/hr IV Q6H [facility] Last Infusion: 05/21/24 07:47 Dose: Infused Documented By: ROBERT Magnesium Hydroxide (Milk Of Magnesia 30 Ml Oral.Susp) 30 ml PO DAILY PRN PRN Reason: Constipation Melatonin (Melatonin 3 Mg Tablet) 6 mg PO BEDTIME PRN PRN Reason: Insomnia Ondansetron HCl (Ondansetron Hcl 4 Mg/2 Ml Vial) 4 mg IVPUSH Q8H PRN PRN Reason: Nausea and Vomiting Polyethylene Glycol (Polyethylene Glycol 3350 17 Gm Powd.Pack) 17 gm PO DAILY [facility] Last Admin: 05/21/24 08:30 Dose: Not Given Documented By: ROBERT Non-Admin Reason: Patient Condition Contraindication Comments: pt too lethargic to swallow safely, MD at bedside Rivaroxaban (Rivaroxaban 20 Mg Tablet) 20 mg PO DAILY@1730 [facility] Last Admin: 05/20/24 21:10 Dose: 20 mg Documented By: TISHA Sodium Chloride (0.9 % Sodium Chloride Flush 3 Ml Syringe) 3 ml IVFLUSH QSHIFT [facility] Last Admin: 05/21/24 08:31 Dose: 3 ml Documented By: ROBERT Tiotropium [place] (Tiotropium [place] 2.5 Mcg 1 Puff/2.5 Mcg Mist.Inhal) 2 puff INHALE RDAILY [facility] Last Admin: 05/21/24 07:48 Dose: Not Given Documented By: SAÚL Non-Admin Reason: Patient Condition Contraindication Vitamin D (Cholecalciferol (Vitamin D3) 25 Mcg Tablet) 25 mcg PO DAILY [facility] Last Admin: 05/21/24 08:30 Dose: Not Given Documented By: ROBERT Non-Admin Reason: Patient Condition Contraindication Comments: pt too lethargic to swallow safely, at bedside Labs 05/21/24 05:47 05/21/24 05:47 Labs: Laboratory Results - last 24 hr 05/20/24 05/20/24 05/20/24 14:59 15:00 15:05 MCV 94.1 MCH 31.2 MCHC 33.1 RDW 16.0 Plt Count 169 D MPV 11.1 Immature Gran % (Auto) 3.1 H Neut % (Auto) 80.3 H Lymph % (Auto) 8.7 L Cherry % (Auto) 5.0 Eos % (Auto) 2.7 Baso % (Auto) 0.2 Lymph # (Auto) 1.5 Cherry # (Auto) 0.8 Eos # (Auto) 0.5 H Baso # (Auto) 0.0 Abs Immat Gran (auto) 0.53 H Absolute Neuts (auto) 13.5 H Absolute Nucleated RBC 0.050 H Nucleated RBC % (auto) 0.3 H VBG pH 7.49 H VBG pCO2 72 VBG pO2 47 VBG HCO3 55 H VBG O2 Saturation 81.0 VBG Base Excess 27.0 Anion Gap Estim Creat Clear Calc Estimated GFR Random Glucose Lactic Acid Calcium Magnesium Total Bilirubin Direct Bilirubin AST ALT Alkaline Phosphatase Ammonia Troponin I High Sens 17.4 D C-Reactive Protein B-Natriuretic Peptide 116 H Total Protein Albumin TSH 2.05 Random Cortisol 18.0 Urine Color Urine Appearance Urine pH Ur Specific [place] Urine Protein Urine Glucose (UA) Urine Ketones Urine Blood Urine Nitrite Ur Leukocyte Esterase Urine RBC Urine WBC Ur Squamous Epith Cells Urine Bacteria Hyaline Casts Urine Opiates Screen Ur Buprenorphine Scrn Ur Oxycodone Screen Urine Methadone Screen Urine Fentanyl Screen Ur Barbiturates Screen Ur Phencyclidine Scrn Ur Amphetamines Screen U Benzodiazepines Scrn Urine Cocaine Screen U Marijuana (THC) Screen Ethyl Alcohol Influenza Type A (PCR) NEGATIVE Influenza Type B (PCR) NEGATIVE RSV RNA Qual (PCR) NEGATIVE SARS-CoV-2 RNA (RT-PCR) NEGATIVE Crossmatch 05/20/24 05/20/24 05/20/24 15:54 16:28 17:12 MCV MCH MCHC RDW Plt Count MPV Immature Gran % (Auto) Neut % (Auto) Lymph % (Auto) Cherry % (Auto) Eos % (Auto) Baso % (Auto) Lymph # (Auto) Cherry # (Auto) Eos # (Auto) Baso # (Auto) Abs Immat Gran (auto) Absolute Neuts (auto) Absolute Nucleated RBC Nucleated RBC % (auto) VBG pH VBG pCO2 VBG pO2 VBG HCO3 VBG O2 Saturation VBG Base Excess Anion Gap 9 L Estim Creat Clear Calc 90.5 Estimated GFR > 60 Random Glucose 122 H Lactic Acid 0.7 Calcium 9.5 Magnesium 1.9 Total Bilirubin 0.9 Direct Bilirubin 0.4 AST 25 ALT 15 Alkaline Phosphatase 132 H Ammonia Troponin I High Sens C-Reactive Protein 3.21 H B-Natriuretic Peptide Total Protein 6.8 Albumin 3.2 L TSH Random Cortisol Urine Color Urine Appearance Urine pH Ur Specific [place] Urine Protein Urine Glucose (UA) Urine Ketones Urine Blood Urine Nitrite Ur Leukocyte Esterase Urine RBC Urine WBC Ur Squamous Epith Cells Urine Bacteria Hyaline Casts Urine Opiates Screen Not Detected Ur Buprenorphine Scrn Not Detected Ur Oxycodone Screen Not Detected Urine Methadone Screen Not Detected Urine Fentanyl Screen Not Detected Ur Barbiturates Screen Not Detected Ur Phencyclidine Scrn Not Detected Ur Amphetamines Screen Not Detected U Benzodiazepines Scrn Not Detected Urine Cocaine Screen Not Detected U Marijuana (THC) Screen Not Detected Ethyl Alcohol < 10 Influenza Type A (PCR) Influenza Type B (PCR) RSV RNA Qual (PCR) SARS-CoV-2 RNA (RT-PCR) Crossmatch See Detail 05/20/24 05/20/24 05/21/24 17:47 19:11 05:47 MCV 93.2 MCH 31.8 MCHC 34.1 RDW 16.6 H Plt Count 166 MPV 10.6 Immature Gran % (Auto) Neut % (Auto) Lymph % (Auto) Cherry % (Auto) Eos % (Auto) Baso % (Auto) Lymph # (Auto) Cherry # (Auto) Eos # (Auto) Baso # (Auto) Abs Immat Gran (auto) Absolute Neuts (auto) Absolute Nucleated RBC 0.080 H Nucleated RBC % (auto) 0.5 H VBG pH VBG pCO2 VBG pO2 VBG HCO3 VBG O2 Saturation VBG Base Excess Anion Gap 13 Estim Creat Clear Calc 80.5 Estimated GFR > 60 Random Glucose 114 Lactic Acid Calcium 9.4 Magnesium Total Bilirubin Direct Bilirubin AST ALT Alkaline Phosphatase Ammonia 28 Troponin I High Sens C-Reactive Protein B-Natriuretic Peptide Total Protein Albumin TSH Random Cortisol Urine Color Yellow Urine Appearance Clear Urine pH 8.0 Ur Specific [place] 1.010 Urine Protein 30 (1+) H Urine Glucose (UA) Negative Urine Ketones Negative Urine Blood Negative Urine Nitrite Negative Ur Leukocyte Esterase Negative Urine RBC 0-2 Urine WBC 0-5 Ur Squamous Epith Cells 0-2 Urine Bacteria None Seen Hyaline Casts 0-2 Urine Opiates Screen Ur Buprenorphine Scrn Ur Oxycodone Screen Urine Methadone Screen Urine Fentanyl Screen Ur Barbiturates Screen Ur Phencyclidine Scrn Ur Amphetamines Screen U Benzodiazepines Scrn Urine Cocaine Screen U Marijuana (THC) Screen Ethyl Alcohol Influenza Type A (PCR) Influenza Type B (PCR) RSV RNA Qual (PCR) SARS-CoV-2 RNA (RT-PCR) Crossmatch 05/21/24 05:52 MCV MCH MCHC RDW Plt Count MPV Immature Gran % (Auto) Neut % (Auto) Lymph % (Auto) Cherry % (Auto) Eos % (Auto) Baso % (Auto) Lymph # (Auto) Cherry # (Auto) Eos # (Auto) Baso # (Auto) Abs Immat Gran (auto) Absolute Neuts (auto) Absolute Nucleated RBC Nucleated RBC % (auto) VBG pH 7.59 H VBG pCO2 54 VBG pO2 50 VBG HCO3 52 H VBG O2 Saturation 92.0 VBG Base Excess 27.1 Anion Gap Estim Creat Clear Calc Estimated GFR Random Glucose Lactic Acid Calcium Magnesium Total Bilirubin Direct Bilirubin AST ALT Alkaline Phosphatase Ammonia Troponin I High Sens C-Reactive Protein B-Natriuretic Peptide Total Protein Albumin TSH Random Cortisol Urine Color Urine Appearance Urine pH Ur Specific [place] Urine Protein Urine Glucose (UA) Urine Ketones Urine Blood Urine Nitrite Ur Leukocyte Esterase Urine RBC Urine WBC Ur Squamous Epith Cells Urine Bacteria Hyaline Casts Urine Opiates Screen Ur Buprenorphine Scrn Ur Oxycodone Screen Urine Methadone Screen Urine Fentanyl Screen Ur Barbiturates Screen Ur Phencyclidine Scrn Ur Amphetamines Screen U Benzodiazepines Scrn Urine Cocaine Screen U Marijuana (THC) Screen Ethyl Alcohol Influenza Type A (PCR) Influenza Type B (PCR) RSV RNA Qual (PCR) SARS-CoV-2 RNA (RT-PCR) Crossmatch Assessment and Plan (1) Acute metabolic encephalopathy: Status: Acute Plan Pt is a 78-year-old male with a PMH significant for HFpEF, COPD, hypoventilation syndrome, chronic respiratory failure with hypoxia and hypercapnia chronically on 4 L home O2, chronic AFib with slow ventricular response on Xarelto, and s/p pacemaker in place who presents to the ED with?altered mental status and hallucinations x1 week. Pt will be admitted to the hospital for treatment and further evaluation of acute metabolic encephalopathy with hypothermia of unclear etiology. 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 holding bumex metabolic alkalosis d/t bumex -diamox Constipation -lactulose, colace, miralax COPD-no exacerbation -continue inhalers, just finished steroid Not in acute exacerbation Continue home inhalers DuoNebs p.r.n. Bradycardia HR noted to the in the 50s EKG showing increased ventricular paced complexes Patient asymptomatic Will hold metoprolol Monitor on telemetry Chronic AFib -Continue Xarelto -resume metoprolol HLD Continue statin Hx of gout Continue allopurinol Full Code Attending:?Dr. Chung DVT Prophylaxis: On Xarelto Pt will require a hospitalization of at least two nights for treatment of?acute metabolic encephalopathy of unclear etiology in the setting of hypothermia and hyponatremia. Patient requires inpatient level of care due to need for empiric IV antibiotic coverage, and close monitoring of vitals including temperature and labs including sodium. Quality Stroke Does the patient have a stroke diagnosis?: No VTE Prior VTE?: No VTE Risk Level:: Medical - moderate - high VTE Device Contraindication: Treatment Not Indicated VTE Drug Contraindication: N/A - Med Ordered
--- NOTE | 2024-05-21 12:41 | MHC.CM.PN ---
IMM 05/21/24 discussed with HCP / , [place] on the phone. Pt lives with , he has a walker and w/c, but is not moving around much, spends most of this time in the recliner. HCP is on file and confirmed: Alexandria and Andres. Pt also has home O2. PCP is Dr. Herrera. Pt is active with [facility] for NSG and PT. DCP: may be STR, pt only has Medicare, so will need 3 night stay to qualify. CM will follow and assist with DC plan.
--- NOTE | 2024-05-21 14:43 | MHC.SL.SWA ---
Speech Pathologist Impression: Risk of Aspiration Due to: History of Pneumonia Poor PO Intake Reduced Cognition Dysphasia Diet Status: Liquid Consistency and Strategies for Safe Swallow: Liquid Intake Recommendation: Chancellor Thick Liquid Intake Strategies: Liquids by Teaspoon Only Solid Food Consistency: Dietary Recommendations: Grnd/Mech Altered (NDD2) Additional Modifications to Solid Foods: Patient will require 1-1 feeding, liquids/foods by tsp only. Patient will need careful positioning for all meals (e.g. head may need to be supported/positioned with pillows), orientation to meal, and close observation for clinical signs of aspiration. Do not attempt if patient is lethargic and discontinue with signs of coughing, upper airway congestion, change in vocal quality. Oral Medication Intake: Crushed with Puree Please contact the pharmacy regarding appropriate crushable or liquid drug formulations that are available whenever modified delivery is recommended. Compensatory Strategies and Precautions to be Taken for Safe Swallow: Sitting Upright (90 deg) Small Bites and Sips Alternate Liquids/Solids Rate of Ingestion Change Oral Check Avoid Specific Foods Supervision While Eating and Drinking for Safe Swallow: Total Assistance (1:1) Foods to Avoid: Mixed consistencies. Blend sauces and gravies well. Swallowing Recommended Treatments: Compens. Strategy Educat. Recommendation for Speech: Inpatient Speech Therapy Comment: Patient presents with moderate primarily oral phase dysphagia, severe level of confusion/disorientation, and positioning issues, e.g. today presented as somewhat frozen or fixed with a head slumped position. Patient today was chewing repeatedly at rest, and then chewed all liquids and solids presented. Recommend START diet of Ground/Mechanical (NDD2) with NECTAR THICK liquids, by tsp only, pills crushed in Puree. Patient will require 1-1 feeding with careful positioning for meal and strict aspiration precautions. MD/RD notified of recommendation by secure text, RN in person. OIL TESTER will continue to follow. Frequency/Duration: Date Range for Service Req: Timeline to reassess: Transmission Assembler Clinican/Clinical Fellow: No Supervisory Statement: I have reviewed and agree with the student/clinical fellow's documentation: N/A Speech Language Pathologist: Ryanne Oliveira M.A., CCC-OIL TESTER
[2024-05-21] MEDS: Rivaroxaban 20 MG TABLET PO (17:21)
[2024-05-21] MEDS: vancomycin/NS 2,000 MG/500 ML PLAST..BAG 250 MG IV (18:15)
--- NOTE | 2024-05-21 19:17 | PHA.PROG ---
Admission Date/Time: May 20, 2024 18:41 Indication: BACTEREMIA Weight in k kg Serum Creatinine - Last 168 Hours 05/20/24 05/21/24 15:54 05:47 Creatinine 0.84 0.95 Estimated CrCl and GFR - Last 168 Hours 05/20/24 05/21/24 15:54 05:47 Estim Creat Clear Calc 90.5 80.5 Estimated GFR > 60 > 60 Vancomycin Loading Dose: 2000 Current Vancomycin Dosing Regimen: 1000 Q 12 Vancomycin Monitoring using AUC goal of 400 - 600 range with trough as surrogate marker:486 Date and Time for next Vancomycin Level to be drawn: 05/23 @ 0600 Pharmacist Comments on Vancomycin Plan: Vancomycin dosing will take advantage of WatchGuard as a clinical decision support tool that uses Bayesian modeling to calculate individual patient's pharmacokinetic parameters and forecast the patient's drug concentration time course with the target goal AUC 24 range of 400 - 600 mg/L/hr.
[2024-05-21] MEDS: Acetaminophen 325 MG TABLET 650 MG PO (21:16)
[2024-05-21] MEDS: acetaZOLAMIDE 250 MG TABLET PO (21:17)
[2024-05-21] MEDS: Metoprolol Tartrate 25 MG TABLET PO (21:17)
[2024-05-21] MEDS: allopurinoL 100 MG TABLET 200 MG PO (21:17)
[2024-05-21] MEDS: Docusate Sodium 100 MG CAPSULE PO (21:17)
[2024-05-22] VITALS (9 sets, daily range): BP systolic 115–127; BP diastolic 56–71; PULSE 59–92; RESP 16–20; TEMP 36.1–36.7; O2SAT 92–97
[2024-05-22] MEDS: Piperacillin Sodium/Tazobactam 3.375 GM in 0.9 % Sodium Chloride 50 ML IV ×4 (00:30→18:25)
[2024-05-22 07:37] LABS: Hematocrit 27.3 % (42.0-52.0); Hemoglobin 9.2 g/dl (14.0-18.0); Mean Corpuscular HGB Conc 33.7 g/dl (31.0-36.0); Mean Corpuscular Hemoglobin 31.4 pg (27.0-33.0); Mean Corpuscular Volume 93.2 fL (80.0-98.0); Mean Platelet Volume 10.8 fL (9.4-12.4); NRBC Pct Auto 0.2 /100WBC (0.0-0.2); Platelet Count 141 X10*3/uL (160-400); Red Blood Count 2.93 X10*6/uL (4.60-5.80); Red Cell Distribution Width 17.1 % (11.0-16.0); White Blood Count 13.3 X10*3/uL (4.8-10.8)
[2024-05-22 08:00] LABS: Blood Urea Nitrogen 26 mg/dL (9-16); Calcium 8.9 mg/dL (8.4-10.2); Creatinine Clr Calc Pharmacy 67.6; Estimated Glomerular Filt Rate > 60; Glucose Random 120 mg/dL (60-115)
[2024-05-22] MEDS: Tiotropium Bromide 2.5 mcg 1 PUFF/2.5 MCG MIST.INHAL 2 PUFF INHALE (08:27)
[2024-05-22] MEDS: acetaZOLAMIDE 250 MG TABLET PO (08:36)
[2024-05-22] MEDS: Atorvastatin Calcium 20 MG TABLET PO (08:37)
[2024-05-22] MEDS: Cholecalciferol (Vitamin D3) 25 MCG TABLET PO (08:37)
[2024-05-22] MEDS: Metoprolol Tartrate 25 MG TABLET PO (08:37)
[2024-05-22] MEDS: polyethylene glycoL 3350 17 GM POWD.PACK PO (08:38)
[2024-05-22] MEDS: vancomycin HCL 1,000 MG in 0.9 % Sodium Chloride 250 ML 270 MG IV (08:44)
[2024-05-22] MEDS: 0.9 % Sodium Chloride Flush 3 ML SYRINGE IVFLUSH ×2 (08:45→17:30)
[2024-05-22 08:53] LABS: Anion Gap 11 (12-20); Carbon Dioxide 43 mmol/L (22-29); Chloride 81 mmol/L (96-108); Potassium 3.3 mmol/L (3.3-5.1); Sodium 132 mmol/L (135-145)
--- NOTE | 2024-05-22 10:56 | P.PNIM_ITS ---
Subjective Subjective Date of Service: 05/22/24 Interval History: f/u on con confusion, encephalopathy he is more alert, awake today and more interactive Physical Exam 2 Vital Signs: Vital Signs: Last Vital Signs Temp 97 F 05/22/24 07:57 Pulse 87 05/22/24 08:37 Resp 20 05/22/24 08:28 BP 127/58 L 05/22/24 08:37 Pulse Ox 97 05/22/24 07:57 O2 Del Method Nasal Cannula 05/22/24 07:57 O2 Flow Rate 2 05/22/24 07:57 Oxygen Flow Rate 3 05/20/24 13:32 BMI result Body Mass Index 37.8 Const: Other: General: AO X 3, no acute distress Resp: CTA bilateral CVS: S1,S2,RRR GI: +BS, NT, no distention Skin: No rash Neuro: motor grossly intact Psych: appropriate affect Objective Data Active Medications Acetaminophen (Acetaminophen 325 Mg Tablet) 650 mg PO Q6H PRN PRN Reason: Pain, Mild (Pain Scale 1-3), fever or headache Last Admin: 05/21/24 21:16 Dose: 650 mg Documented By: ALTHEA Acetazolamide (Acetazolamide 250 Mg Tablet) 250 mg PO BID [facility] Last Admin: 05/22/24 08:36 Dose: 250 mg Documented By: JESS Albuterol/Ipratropium (Albuterol/Iprat 2.5/0.5mg 3 Ml Ampul.Neb) 3 ml INHALE RQ4H WHILE AWAKE PRN PRN Reason: Shortness of Breath/Wheezing Allopurinol (Allopurinol 100 Mg Tablet) 200 mg PO BEDTIME [facility] Last Admin: 05/21/24 21:17 Dose: 200 mg Documented By: ALTHEA Atorvastatin Calcium (Atorvastatin Calcium 20 Mg Tablet) 20 mg PO DAILY [facility] Last Admin: 05/22/24 08:37 Dose: 20 mg Documented By: JESS Calcium Carbonate (Calcium Carbonate 750 Mg Tab.Chew) 750 mg PO Q4H PRN PRN Reason: Heartburn Docusate Sodium (Docusate Sodium 100 Mg Capsule) 100 mg PO BID [facility] Last Admin: 05/22/24 08:42 Dose: Not Given Documented By: JESS Non-Admin Reason: can not be crushed Piperacillin Sod/Tazobactam (Sod 3.375 gm/ Sodium Chloride) 50 mls @ 100 mls/hr IV Q6H [facility] Last Infusion: 05/22/24 07:07 Dose: Infused Documented By: DENIA Vancomycin HCl 1,000 mg/ (Sodium Chloride) 270 mls @ 270 mls/hr IV Q12H [facility] Last Infusion: 05/22/24 09:52 Dose: Infused Documented By: JESS Magnesium Hydroxide (Milk Of Magnesia 30 Ml Oral.Susp) 30 ml PO DAILY PRN PRN Reason: Constipation Melatonin (Melatonin 3 Mg Tablet) 6 mg PO BEDTIME PRN PRN Reason: Insomnia Metoprolol Tartrate (Metoprolol Tartrate 25 Mg Tablet) 25 mg PO BID [facility]; Protocol Last Admin: 05/22/24 08:37 Dose: 25 mg Documented By: JESS Ondansetron HCl (Ondansetron Hcl 4 Mg/2 Ml Vial) 4 mg IVPUSH Q8H PRN PRN Reason: Nausea and Vomiting Pharmacy Consult (Consult Rx Vancomycin Dosing) 1 each MISCELLANE DAILY PRN PRN Reason: Consult order Polyethylene Glycol (Polyethylene Glycol 3350 17 Gm Powd.Pack) 17 gm PO DAILY [facility] Last Admin: 05/22/24 08:38 Dose: 17 gm Documented By: JESS Rivaroxaban (Rivaroxaban 20 Mg Tablet) 20 mg PO DAILY@1730 [facility] Last Admin: 05/21/24 17:21 Dose: 20 mg Documented By: ROBERT Sodium Chloride (0.9 % Sodium Chloride Flush 3 Ml Syringe) 3 ml IVFLUSH QSHIFT [facility] Last Admin: 05/22/24 08:45 Dose: 3 ml Documented By: JESS Tiotropium [place] (Tiotropium [place] 2.5 Mcg 1 Puff/2.5 Mcg Mist.Inhal) 2 puff INHALE RDAILY [facility] Last Admin: 05/22/24 08:27 Dose: 2 puff Documented By: AMPARO Vitamin D (Cholecalciferol (Vitamin D3) 25 Mcg Tablet) 25 mcg PO DAILY [facility] Last Admin: 05/22/24 08:37 Dose: 25 mcg Documented By: JESS Labs 05/22/24 07:28 05/22/24 07:28 Labs: Laboratory Results - last 24 hr 05/22/24 07:28 MCV 93.2 MCH 31.4 MCHC 33.7 RDW 17.1 H Plt Count 141 L MPV 10.8 Absolute Nucleated RBC 0.030 H Nucleated RBC % (auto) 0.2 Anion Gap 11 L Estim Creat Clear Calc 67.6 Estimated GFR > 60 Random Glucose 120 H Calcium 8.9 Microbiology Microbiology Results: Microbiology 05/20/24 16:28 Blood Culture - Final Blood - Venous Coag negative Staphylococcus 05/20/24 16:47 Blood Culture - Preliminary Blood - Venous No growth after 24 hours. Assessment and Plan (1) Acute metabolic encephalopathy: Status: Acute Plan Pt is a 78-year-old male with a PMH significant for HFpEF, COPD, hypoventilation syndrome, chronic respiratory failure with hypoxia and hypercapnia chronically on 4 L home O2, chronic AFib with slow ventricular response on Xarelto, and s/p pacemaker in place who presents to the ED with?altered mental status and hallucinations x1 week. Pt will be admitted to the hospital for treatment and further evaluation of acute metabolic encephalopathy with hypothermia of unclear etiology. Acute metabolic encephalopathy probably multifactorial--hyponatremia, ?pna, bacteremia. 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 Chronic AFib -Continue Xarelto -continue metoprolol HLD Continue statin Hx of gout Continue allopurinol Full Code Attending:?Dr. Chung DVT Prophylaxis: On Xarelto need for inpt: encephalopathy , PNA, Quality Stroke Does the patient have a stroke diagnosis?: No VTE Prior VTE?: No VTE Risk Level:: Medical - moderate - high VTE Device Contraindication: Treatment Not Indicated VTE Drug Contraindication: N/A - Med Ordered
[2024-05-22] MEDS: Rivaroxaban 20 MG TABLET PO (17:30)
[2024-05-22 18:33] LABS: Creatinine Clr Calc Pharmacy 73.5; Estimated Glomerular Filt Rate > 60
[2024-05-22 18:39] LABS: Vancomycin Random 22.1 mcg/mL (15-20)
--- NOTE | 2024-05-22 18:51 | HE.PHANOTE ---
VANCO DOSE ADJUSTMENT BASED ON TROUGH OF 22.1. DOSE CHANGING TO 750 Q 12H. NEXT LEVEL 05/24 @ 0900
[2024-05-22] MEDS: Melatonin 3 MG TABLET 6 MG PO (22:55)
[2024-05-22] MEDS: acetaZOLAMIDE 250 MG TABLET 500 MG PO (22:55)
[2024-05-22] MEDS: allopurinoL 100 MG TABLET 200 MG PO (22:55)
[2024-05-22] MEDS: Docusate Sodium 100 MG CAPSULE PO (22:55)
[2024-05-22] MEDS: vancomycin HCL 750 MG in 0.9 % Sodium Chloride 250 ML 265 MG IV (22:59)
[2024-05-23] VITALS (16 sets, daily range): BP systolic 94–127; BP diastolic 44–59; PULSE 51–68; RESP 16–21; TEMP 35.1–36.9; O2SAT 93–100
--- NOTE | 2024-05-23 | ECG_ITS ---
Test Reason : ICU Evaluation Blood Pressure : / mmHG Vent. Rate : 053 BPM Atrial Rate : 053 BPM P-R Int : 240 ms QRS Dur : 138 ms QT Int : 438 ms P-R-T Axes : 019 -43 119 degrees QTc Int : 410 ms Atrial fibrillation with slow ventricular response with frequent ventricular-paced complexes Left axis deviation Left ventricular hypertrophy with QRS widening and repolarization abnormality ( R in aVL , [place] product ) Abnormal ECG When compared with ECG of 20-MAY-2024 14:12, Vent. rate has decreased BY 5 BPM Referred By: Sada Solomon Electronically Signed By:DARON GAYTAN
[2024-05-23] MEDS: Piperacillin Sodium/Tazobactam 3.375 GM in 0.9 % Sodium Chloride 50 ML IV ×4 (00:24→18:15)
[2024-05-23 07:21] LABS: Blood Urea Nitrogen 21 mg/dL (9-16); Calcium 8.6 mg/dL (8.4-10.2); Creatinine Clr Calc Pharmacy 79.6; Estimated Glomerular Filt Rate > 60; Glucose Random 110 mg/dL (60-115)
[2024-05-23] MEDS: Tiotropium Bromide 2.5 mcg 1 PUFF/2.5 MCG MIST.INHAL 2 PUFF INHALE (07:29)
[2024-05-23 07:45] LABS: Anion Gap 8 (12-20); Carbon Dioxide 44 mmol/L (22-29); Chloride 83 mmol/L (96-108); Potassium 3.2 mmol/L (3.3-5.1); Sodium 132 mmol/L (135-145)
--- NOTE | 2024-05-23 07:59 | HE.PHANOTE ---
Vanco Dosing Renal function slight improvement. Will continue current regimen. Next level 05/24 @ 0900. Berhane NunnD
[2024-05-23 08:32] LABS: MANUAL DIFF FLAG NO
[2024-05-23 08:37] LABS: Basophils Percent Auto 0.1 % (0-2); Eosinophils Absolute Auto 0.4 X10*3/uL (0.0-0.4); Eosinophils Percent Auto 3.8 % (0-4); Hematocrit 27.2 % (42.0-52.0); Hemoglobin 8.8 g/dl (14.0-18.0); Imm Gran Abs Auto 0.18 X10*3/uL (0.00-0.03); Imm Gran Pct Auto 1.6 % (0.0-0.4); Lymphocytes Absolute Auto 1.2 X10*3/uL (1.2-4.9); Lymphocytes Percent Auto 10.9 % (20-40); Mean Corpuscular HGB Conc 32.4 g/dl (31.0-36.0); Mean Corpuscular Hemoglobin 31.9 pg (27.0-33.0); Mean Corpuscular Volume 98.6 fL (80.0-98.0); Mean Platelet Volume 11.7 fL (9.4-12.4); Monocytes Absolute Auto 0.8 X10*3/uL (0.1-1.2); Monocytes Percent Auto 7.3 % (2-11); Neutrophils Absolute Auto 8.7 x10*3/uL (2.0-8.3); Neutrophils Percent Auto 76.3 % (45-73); Platelet Count 148 X10*3/uL (160-400); Red Blood Count 2.76 X10*6/uL (4.60-5.80); Red Cell Distribution Width 17.8 % (11.0-16.0); White Blood Count 11.4 X10*3/uL (4.8-10.8)
[2024-05-23] MEDS: 0.9 % Sodium Chloride Flush 3 ML SYRINGE IVFLUSH ×2 (08:41→18:14)
[2024-05-23] MEDS: Milk of Magnesia 30 ML ORAL.SUSP PO (08:42)
[2024-05-23] MEDS: Potassium Chloride Packet 20 MEQ PACKET 40 MEQ PO (08:42)
[2024-05-23] MEDS: Atorvastatin Calcium 20 MG TABLET PO (08:42)
[2024-05-23] MEDS: polyethylene glycoL 3350 17 GM POWD.PACK PO (08:43)
[2024-05-23] MEDS: Docusate Sodium 100 MG CAPSULE PO (08:43)
[2024-05-23] MEDS: Cholecalciferol (Vitamin D3) 25 MCG TABLET PO (08:43)
[2024-05-23] MEDS: acetaZOLAMIDE 250 MG TABLET 500 MG PO (08:54)
[2024-05-23] MEDS: Metoprolol Tartrate 25 MG TABLET PO (08:54)
[2024-05-23] MEDS: vancomycin HCL 750 MG in 0.9 % Sodium Chloride 250 ML 265 MG IV (10:43)
--- NOTE | 2024-05-23 11:37 | HO.PM.IMPN ---
Subjective Subjective Date of Service: 05/23/24 Interval History: f/u on con confusion, encephalopathy he is more alert, awake today and more interactive but still with some level of confusion Physical Exam Vital Signs: Vital Signs: Last Vital Signs Temp 97 F 05/23/24 08:00 Pulse 55 05/23/24 08:00 Resp 20 05/23/24 08:00 BP 127/59 L 05/23/24 08:00 Pulse Ox 99 05/23/24 08:00 O2 Del Method Nasal Cannula 05/23/24 08:00 O2 Flow Rate 2 05/23/24 08:00 Oxygen Flow Rate 3 05/20/24 13:32 BMI result Body Mass Index 37.8 Const: Other: General: AO X 3, no acute distress Resp: CTA bilateral CVS: S1,S2,RRR GI: +BS, NT, no distention Skin: No rash Neuro: motor grossly intact Psych: appropriate affect Objective Data Active Medications Acetaminophen (Acetaminophen 325 Mg Tablet) 650 mg PO Q6H PRN PRN Reason: Pain, Mild (Pain Scale 1-3), fever or headache Last Admin: 05/21/24 21:16 Dose: 650 mg Documented By: ALTHEA Acetazolamide (Acetazolamide 250 Mg Tablet) 500 mg PO BID [facility] Last Admin: 05/23/24 08:54 Dose: 500 mg Documented By: DARIA Albuterol/Ipratropium (Albuterol/Iprat 2.5/0.5mg 3 Ml Ampul.Neb) 3 ml INHALE RQ4H WHILE AWAKE PRN PRN Reason: Shortness of Breath/Wheezing Allopurinol (Allopurinol 100 Mg Tablet) 200 mg PO BEDTIME [facility] Last Admin: 05/22/24 22:55 Dose: 200 mg Documented By: ALTHEA Atorvastatin Calcium (Atorvastatin Calcium 20 Mg Tablet) 20 mg PO DAILY [facility] Last Admin: 05/23/24 08:42 Dose: 20 mg Documented By: DARIA Calcium Carbonate (Calcium Carbonate 750 Mg Tab.Chew) 750 mg PO Q4H PRN PRN Reason: Heartburn Docusate Sodium (Docusate Sodium 100 Mg Capsule) 100 mg PO BID [facility] Last Admin: 05/23/24 08:43 Dose: 100 mg Documented By: DARIA Piperacillin Sod/Tazobactam (Sod 3.375 gm/ Sodium Chloride) 50 mls @ 100 mls/hr IV Q6H [facility] Last Infusion: 05/23/24 08:42 Dose: Infused Documented By: DARIA Vancomycin HCl 750 mg/ Sodium (Chloride) 265 mls @ 265 mls/hr IV Q12H [facility] Last Admin: 05/23/24 10:43 Dose: 265 mls/hr Documented By: DARIA Magnesium Hydroxide (Milk Of Magnesia 30 Ml Oral.Susp) 30 ml PO DAILY PRN PRN Reason: Constipation Last Admin: 05/23/24 08:42 Dose: 30 ml Documented By: DARIA Melatonin (Melatonin 3 Mg Tablet) 6 mg PO BEDTIME PRN PRN Reason: Insomnia Last Admin: 05/22/24 22:55 Dose: 6 mg Documented By: ALTHEA Metoprolol Tartrate (Metoprolol Tartrate 25 Mg Tablet) 25 mg PO BID [facility]; Protocol Last Admin: 05/23/24 08:54 Dose: 25 mg Documented By: DARIA Ondansetron HCl (Ondansetron Hcl 4 Mg/2 Ml Vial) 4 mg IVPUSH Q8H PRN PRN Reason: Nausea and Vomiting Pharmacy Consult (Consult Rx Vancomycin Dosing) 1 each MISCELLANE DAILY PRN PRN Reason: Consult order Polyethylene Glycol (Polyethylene Glycol 3350 17 Gm Powd.Pack) 17 gm PO DAILY [facility] Last Admin: 05/23/24 08:43 Dose: 17 gm Documented By: DARIA Rivaroxaban (Rivaroxaban 20 Mg Tablet) 20 mg PO DAILY@1730 [facility] Last Admin: 05/22/24 17:30 Dose: 20 mg Documented By: JESS Sodium Chloride (0.9 % Sodium Chloride Flush 3 Ml Syringe) 3 ml IVFLUSH QSHIFT [facility] Last Admin: 05/23/24 08:41 Dose: 3 ml Documented By: DARIA Tiotropium Blackwell (Tiotropium Blackwell 2.5 Mcg 1 Puff/2.5 Mcg Mist.Inhal) 2 puff INHALE RDAILY [facility] Last Admin: 05/23/24 07:29 Dose: 2 puff Documented By: ALEXANDRO Vitamin D (Cholecalciferol (Vitamin D3) 25 Mcg Tablet) 25 mcg PO DAILY [facility] Last Admin: 05/23/24 08:43 Dose: 25 mcg Documented By: DARIA Labs 05/23/24 06:43 05/23/24 06:43 Labs: Laboratory Results - last 24 hr 05/22/24 05/23/24 18:09 06:43 MCV 98.6 H D MCH 31.9 MCHC 32.4 RDW 17.8 H Plt Count 148 L MPV 11.7 Immature Gran % (Auto) 1.6 H Neut % (Auto) 76.3 H Lymph % (Auto) 10.9 L [place] % (Auto) 7.3 Eos % (Auto) 3.8 Baso % (Auto) 0.1 Lymph # (Auto) 1.2 [place] # (Auto) 0.8 Eos # (Auto) 0.4 Baso # (Auto) 0.0 Abs Immat Gran (auto) 0.18 H Absolute Neuts (auto) 8.7 H Absolute Nucleated RBC 0.000 Nucleated RBC % (auto) 0.0 Hold Purple Top SEE NOTE Anion Gap 8 L Estim Creat Clear Calc 73.5 79.6 Estimated GFR > 60 > 60 Random Glucose 110 Calcium 8.6 Random Vancomycin 22.1 H Microbiology Microbiology Results: Microbiology 05/20/24 16:47 Blood Culture - Preliminary Blood - Venous No growth after 48 hours. 05/20/24 16:28 Blood Culture - Final Blood - Venous Coag negative Staphylococcus Assessment and Plan (1) Acute metabolic encephalopathy: Status: Acute Plan Pt is a 78-year-old male with a PMH significant for HFpEF, COPD, hypoventilation syndrome, chronic respiratory failure with hypoxia and hypercapnia chronically on 4 L home O2, chronic AFib with slow ventricular response on Xarelto, and s/p pacemaker in place who presents to the ED with?altered mental status and hallucinations x1 week. Pt will be admitted to the hospital for treatment and further evaluation of acute metabolic encephalopathy with hypothermia of unclear etiology. Acute metabolic encephalopathy probably multifactorial--hyponatremia, ?pna, bacteremia. 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 Chronic AFib -Continue Xarelto -continue metoprolol HLD Continue statin Hx of gout Continue allopurinol Full Code Attending:?Dr. Chung DVT Prophylaxis: On Xarelto need for inpt: encephalopathy , PNA needing IV abx Quality Stroke Does the patient have a stroke diagnosis?: No VTE Prior VTE?: No VTE Risk Level:: Medical - moderate - high VTE Device Contraindication: Treatment Not Indicated VTE Drug Contraindication: N/A - Med Ordered
[2024-05-23 16:51] LABS: ABG Base Excess 17.3 mmol/L; ABG HCO3 46 mmol/L (22-26); ABG pCO2 82 mmHg (32-45); ABG pH 7.35 (7.35-7.45); ABG pO2 136 mmHg (83-108)
[2024-05-23 17:07] LABS: ABG Refer to POC result
--- NOTE | 2024-05-23 17:35 | PM.EVENT ---
Event Note Date of Service: 05/23/24 Event Note: Patient is a 78 Y M with heart failure, atrial fibrillation on rivaroxaban, s/p pacemaker, COPD c/b chronic mixed respiratory failure, on 4 L NC baseline, and recent COPD exacerbation on 05/12, who re-presented to the ED on 05/20 w/ visual and auditory hallucinations and intermittent encephalopathy, found to be hypothermic, though grossly unrevealing work-up, admitted medicine for continued management, w/ some interval improvement of encephalopathy; on 05/23, patient developed obtundation, found to have acute on chronic hypercarbic respiratory failure, admitted ICU for BiPAP and very close monitoring; pending additional work-up including CT head, CT chest, EKG, and repeat labs Time Spent With Patient Time: Total time managing care of this patient today ____ minutes.
--- NOTE | 2024-05-23 17:45 | PM.EVENT ---
Event Note Date of Service: 05/23/24 Event Note: Although awake during the morning, he progressively became somnolent, easily aroused but quickly falling back to sleep. His oxygen saturation on supplemental O2 remained high. An arterial blood gas (ABG) showed a CO2 level of 82 with a normal pH. His baseline CO2 is in the high 50s. BiPAP is being initiated, and he is being transferred to the ICU. This has been discussed with Dr. Solomon, and his [place] has been updated over the phone. Time Spent With Patient Time: Total time managing care of this patient today ____ minutes.
[2024-05-23] MEDS: Albuterol Sulfate 2.5 MG, Albuterol Sulfate (0.083%) 2.5 MG 5 MG INHALE (17:53)
[2024-05-23] MEDS: Azithromycin 500 MG in 0.9 % Sodium Chloride 250 ML 125 MG IV (18:13)
[2024-05-23] MEDS: methylPREDNISolone Sod Succ 125 MG/2 ML VIAL 60 MG IVPUSH (18:14)
[2024-05-23 18:15] LABS: MANUAL DIFF FLAG NO
[2024-05-23 18:18] LABS: Basophils Percent Auto 0.2 % (0-2); Eosinophils Absolute Auto 0.4 X10*3/uL (0.0-0.4); Eosinophils Percent Auto 3.4 % (0-4); Hematocrit 29.8 % (42.0-52.0); Hemoglobin 9.4 g/dl (14.0-18.0); Imm Gran Abs Auto 0.15 X10*3/uL (0.00-0.03); Imm Gran Pct Auto 1.3 % (0.0-0.4); Lymphocytes Percent Auto 8.6 % (20-40); Mean Corpuscular HGB Conc 31.5 g/dl (31.0-36.0); Mean Corpuscular Volume 98.3 fL (80.0-98.0); Monocytes Absolute Auto 0.6 X10*3/uL (0.1-1.2); Monocytes Percent Auto 5.8 % (2-11); Neutrophils Percent Auto 80.7 % (45-73); Platelet Count 137 X10*3/uL (160-400); Red Blood Count 3.03 X10*6/uL (4.60-5.80); Red Cell Distribution Width 17.8 % (11.0-16.0); White Blood Count 11.1 X10*3/uL (4.8-10.8)
[2024-05-23 18:19] LABS: VBG Base Excess 19.2 mmol/L; VBG HCO3 46 mmol/L (22-26); VBG pCO2 64 mmHg; VBG pH 7.46 (7.32-7.43); VBG pO2 74 mmHg
[2024-05-23 18:19] LABS: Venous Blood Gas Refer to POC result
[2024-05-23 18:36] LABS: Anion Gap 12 (12-20); Blood Urea Nitrogen 19 mg/dL (9-16); Calcium 8.7 mg/dL (8.4-10.2); Carbon Dioxide 37 mmol/L (22-29); Chloride 87 mmol/L (96-108); Creatinine Clr Calc Pharmacy 84.9; Estimated Glomerular Filt Rate > 60; Glucose Random 111 mg/dL (60-115); Magnesium 2.2 mg/dL (1.6-2.6); Phosphorus 3.6 mg/dL (2.7-4.5); Potassium 3.9 mmol/L (3.3-5.1); Sodium 132 mmol/L (135-145)
[2024-05-23 18:38] LABS: B Type Natriuretic Peptide 185 pg/mL (<100)
[2024-05-23] MEDS: Albuterol/Iprat 2.5/0.5MG 3 ML AMPUL.NEB INHALE (19:02)
--- NOTE | 2024-05-23 19:23 | PC.NURSE ---
Assumed care of patient 17:30. RN to RN bedisde report provided to this DIRECTOR OF DEVELOPMENT AND MARKETING by [employer] sales consultant. Pt on Bipap, FiO2 titrated up from 21% to 30% Pt opens eyes to name, see shift assessment New labs ordered and obtained, new CXR obtained. IV zithro and IV zosyn given. IVP Solumedrol given per new orders in NOV. 18:[address] of head and chest in ED on zoll monitor. Pt accompanied by 2 RNs and RT. 19:00 RN to RN report given to night RN.
[2024-05-24] VITALS (31 sets, daily range): BP systolic 102–142; BP diastolic 31–78; PULSE 51–84; RESP 11–28; TEMP 35–36.9; O2SAT 89–100
[2024-05-24] MEDS: Piperacillin Sodium/Tazobactam 3.375 GM in 0.9 % Sodium Chloride 50 ML IV ×4 (00:47→18:10)
[2024-05-24 04:37] LABS: VBG Base Excess 16.8 mmol/L; VBG HCO3 43 mmol/L (22-26); VBG pCO2 62 mmHg; VBG pH 7.45 (7.32-7.43); VBG pO2 31 mmHg
[2024-05-24 04:45] LABS: Venous Blood Gas Refer to POC result
[2024-05-24 05:00] LABS: Basophils Percent Auto 0.1 % (0-2); Eosinophils Percent Auto 0.1 % (0-4); Hematocrit 27.1 % (42.0-52.0); Hemoglobin 8.8 g/dl (14.0-18.0); Imm Gran Abs Auto 0.13 X10*3/uL (0.00-0.03); Imm Gran Pct Auto 1.3 % (0.0-0.4); Lymphocytes Absolute Auto 0.4 X10*3/uL (1.2-4.9); Lymphocytes Percent Auto 3.4 % (20-40); MANUAL DIFF FLAG SCAN; Mean Corpuscular HGB Conc 32.5 g/dl (31.0-36.0); Mean Corpuscular Volume 95.4 fL (80.0-98.0); Mean Platelet Volume 10.9 fL (9.4-12.4); Monocytes Absolute Auto 0.1 X10*3/uL (0.1-1.2); Monocytes Percent Auto 1.1 % (2-11); Neutrophils Absolute Auto 9.7 x10*3/uL (2.0-8.3); Platelet Count 134 X10*3/uL (160-400); Red Blood Count 2.84 X10*6/uL (4.60-5.80); Red Cell Distribution Width 17.3 % (11.0-16.0); SCAN SMEAR FLAG 1; White Blood Count 10.3 X10*3/uL (4.8-10.8)
[2024-05-24 05:18] LABS: Anion Gap 13 (12-20); Blood Urea Nitrogen 21 mg/dL (9-16); Calcium 8.9 mg/dL (8.4-10.2); Carbon Dioxide 35 mmol/L (22-29); Chloride 87 mmol/L (96-108); Creatinine Clr Calc Pharmacy 76.4; Estimated Glomerular Filt Rate > 60; Glucose Random 186 mg/dL (60-115); Phosphorus 3.2 mg/dL (2.7-4.5); Potassium 4.2 mmol/L (3.3-5.1); Sodium 131 mmol/L (135-145)
[2024-05-24 05:33] LABS: SLIDE REVIEW VERIFIED
[2024-05-24] MEDS: Lactated Ringers 500 ML 100 ML IVCONT (05:45)
[2024-05-24] MEDS: methylPREDNISolone Sod Succ 125 MG/2 ML VIAL 60 MG IVPUSH (05:45)
[2024-05-24] MEDS: Albuterol/Iprat 2.5/0.5MG 3 ML AMPUL.NEB INHALE ×4 (07:26→20:40)
[2024-05-24] MEDS: 0.9 % Sodium Chloride Flush 3 ML SYRINGE IVFLUSH ×2 (07:52→15:24)
--- NOTE | 2024-05-24 08:08 | PM.CCPN ---
Subjective Subjective Date of Service: 05/24/24 Interval History: no significant overnight events; placed on BiPAP with interval improvement of encephalopathy Critical Care Time (minutes): 60 Physical Exam Vital Signs: Vital Signs: Last Vital Signs Temp 97.9 F 05/24/24 07:00 Pulse 53 05/24/24 07:37 Resp 15 05/24/24 07:37 BP 112/49 L 05/24/24 07:00 Pulse Ox 97 05/24/24 07:00 O2 Del Method Nasal Cannula 05/24/24 07:00 O2 Flow Rate 1 05/24/24 07:00 FiO2 24 05/24/24 07:55 Oxygen Flow Rate 3 05/20/24 13:32 BMI result Body Mass Index 37.8 Const: General: cooperative, healthy appearing, comfortable, no acute distress, well developed, alert and awake Orientation/consciousness: oriented to person, oriented to place and oriented to time (Year Only) HEENT: Head: Yes normal to inspection, Yes normocephalic and Yes atraumatic Eyes: General: appearance normal, both eyes and all related structures Neck: Neck: Yes normal visual inspection, Yes full ROM, Yes no meningeal signs, Yes trachea midline and Yes supple Chest: Chest palpation & inspection: normal inspection of the chest Resp: Other: no appreciable rales, rhonchi, wheezing Effort & Inspection: normal respiratory effort Cardio: Rate: bradycardic Rhythm: abnormal rhythm GI: Inspection: Yes normal to inspection, No Abdominal wall edema and No distended Palpation (GI): Soft to palpation, not firm, nontender, no guarding and not rigid Skin: General skin exam: no rashes or lesions noted Neuro: General: oriented to person, oriented to place, oriented to time (Year Only), tone normal, moves all extremities, no meningeal signs and no focal motor deficits Extrem: Other: 1+ pitting edema to bilateral shins General: Yes normal to inspection, Yes full ROM and Yes capillary refill normal Psych: Other: no appreciable visual nor auditory hallucinations Appearance: grossly normal Objective Data Labs 05/24/24 04:32 05/24/24 04:32 Labs: Laboratory Results - last 24 hr 05/23/24 05/23/24 05/23/24 06:43 16:41 18:09 WBC 11.4 H 11.1 H RBC 2.76 L 3.03 L Hgb 8.8 L 9.4 L Hct 27.2 L 29.8 L MCV 98.6 H D 98.3 H MCH 31.9 31.0 MCHC 32.4 31.5 RDW 17.8 H 17.8 H Plt Count 148 L 137 L MPV 11.7 11.0 Immature Gran % (Auto) 1.6 H 1.3 H Neut % (Auto) 76.3 H 80.7 H Lymph % (Auto) 10.[address] [place] % (Auto) 7.3 5.8 Eos % (Auto) 3.8 3.4 Baso % (Auto) 0.1 0.2 Lymph # (Auto) 1.[address] [place] # (Auto) 0.8 0.6 Eos # (Auto) 0.4 0.4 Baso # (Auto) 0.0 0.0 Abs Immat Gran (auto) 0.18 H 0.15 H Absolute Neuts (auto) 8.7 H 9.0 H Absolute Nucleated RBC 0.000 0.000 Nucleated RBC % (auto) 0.0 0.0 Smear Tech's Comments O2 Saturation 99.0 ABG pH at Pt Temp 7.35 ABG pCO2 at Pt Temp 82 H* ABG pO2 at Pt Temp 136 H ABG HCO3 46 H ABG Base Excess (Actual) 17.3 VBG pH VBG pCO2 VBG pO2 VBG HCO3 VBG O2 Saturation VBG Base Excess Sodium 132 L Potassium 3.9 D Chloride 87 L Carbon Dioxide 37 H Anion Gap 12 BUN 19 H Creatinine 0.90 Estim Creat Clear Calc 84.9 Estimated GFR > 60 Random Glucose 111 Calcium 8.7 Phosphorus 3.6 Magnesium 2.0 2.2 B-Natriuretic Peptide 185 H 05/23/24 05/24/24 05/24/24 18:15 04:28 04:32 WBC 10.3 RBC 2.84 L Hgb 8.8 L Hct 27.1 L MCV 95.4 MCH 31.0 MCHC 32.5 RDW 17.3 H Plt Count 134 L MPV 10.9 Immature Gran % (Auto) 1.3 H Neut % (Auto) 94.0 H Lymph % (Auto) 3.[address] [place] % (Auto) 1.1 L Eos % (Auto) 0.1 Baso % (Auto) 0.1 Lymph # (Auto) 0.[address] [place] # (Auto) 0.1 Eos # (Auto) 0.0 Baso # (Auto) 0.0 Abs Immat Gran (auto) 0.13 H Absolute Neuts (auto) 9.7 H Absolute Nucleated RBC 0.000 Nucleated RBC % (auto) 0.0 Smear Tech's Comments VERIFIED O2 Saturation ABG pH at Pt Temp ABG pCO2 at Pt Temp ABG pO2 at Pt Temp ABG HCO3 ABG Base Excess (Actual) VBG pH 7.46 H 7.45 H VBG pCO2 64 62 VBG pO2 74 31 VBG HCO3 46 H 43 H VBG O2 Saturation 98.0 53.0 VBG Base Excess 19.2 16.8 Sodium 131 L Potassium 4.2 Chloride 87 L Carbon Dioxide 35 H Anion Gap 13 BUN 21 H Creatinine 1.00 Estim Creat Clear Calc 76.4 Estimated GFR > 60 Random Glucose 186 H Calcium 8.9 Phosphorus 3.2 Magnesium 2.0 B-Natriuretic Peptide Microbiology Microbiology Results: Microbiology 05/20/24 16:47 Blood - Venous Blood Culture - Preliminary No growth after 48 hours. 05/20/24 16:28 Blood - Venous Blood Culture - Final Coag negative Staphylococcus Progress Note: A&P Assessment and plan (1) Acute metabolic encephalopathy: Status: Acute (2) Respiratory failure with hypoxia and hypercapnia: Status: Acute (3) Pneumonia: Status: Acute (4) COPD (chronic obstructive pulmonary disease): Status: Acute Plan Patient is a 78 Y M with heart failure, atrial fibrillation on rivaroxaban, s/p pacemaker, COPD c/b chronic mixed respiratory failure, on 4 L NC baseline, and recent COPD exacerbation on 05/12, who re-presented to the ED on 05/20 w/ visual and auditory hallucinations and intermittent encephalopathy, found to be hypothermic, though grossly unrevealing work-up, admitted medicine for continued management, w/ some interval improvement of encephalopathy; on 05/23, patient developed obtundation, found to have acute on chronic hypercarbic respiratory failure, admitted ICU for BiPAP N: encephalopathy, improving CV: intermittent hypotension; to monitor very closely; norepinephrine gtt as needed R: COPD c/b chronic mixed respiratory failure, on 4 L NC baseline, BiPAP when sleeping and as needed GI: NPO while encephalopathic, advance diet as tolerated : no acute issues H: no acute issues; atrial fibrillation, home rivaroxaban when tolerating PO; mechanical devices ID: possible pneumonia, empiric azithromycin, zosyn E: no acute issues; to monitor hypo-/hyper-glycemia P: visual and auditory hallucinations, improving Quality Stroke Does the patient have a stroke diagnosis?: No VTE Prior VTE?: No VTE Risk Level:: Medical - moderate - high VTE Device Contraindication: N/A - Device Ordered VTE Drug Contraindication: N/A - Med Ordered
[2024-05-24 08:44] LABS: Venous Blood Gas Refer to POC result
[2024-05-24 08:47] LABS: VBG Base Excess 19.4 mmol/L; VBG HCO3 46 mmol/L (22-26); VBG pCO2 67 mmHg; VBG pH 7.44 (7.32-7.43); VBG pO2 86 mmHg
[2024-05-24 08:54] LABS: Lactic Acid 1.4 mmol/L (0.5-2.0)
[2024-05-24 09:04] LABS: Vancomycin Random 21.4 mcg/mL (15-20)
[2024-05-24] MEDS: Lactated Ringers 500 ML IVCONT (10:15)
[2024-05-24] MEDS: Azithromycin 500 MG in 0.9 % Sodium Chloride 250 ML 125 MG IV (18:10)
[2024-05-24] MEDS: Midodrine HCl 2.5 MG TABLET PO (21:27)
[2024-05-25] VITALS (30 sets, daily range): BP systolic 96–151; BP diastolic 38–72; PULSE 52–84; RESP 11–23; TEMP 36–37; O2SAT 90–99
[2024-05-25] MEDS: Piperacillin Sodium/Tazobactam 3.375 GM in 0.9 % Sodium Chloride 50 ML IV ×4 (00:16→18:01)
[2024-05-25] MEDS: 0.9 % Sodium Chloride Flush 3 ML SYRINGE IVFLUSH ×4 (00:17→20:15)
[2024-05-25 05:19] LABS: Basophils Percent Auto 0.1 % (0-2); Hematocrit 25.1 % (42.0-52.0); Hemoglobin 8.4 g/dl (14.0-18.0); Imm Gran Abs Auto 0.16 X10*3/uL (0.00-0.03); Imm Gran Pct Auto 0.8 % (0.0-0.4); Lymphocytes Absolute Auto 0.8 X10*3/uL (1.2-4.9); Lymphocytes Percent Auto 4.1 % (20-40); MANUAL DIFF FLAG SCAN; Mean Corpuscular HGB Conc 33.5 g/dl (31.0-36.0); Mean Corpuscular Hemoglobin 31.7 pg (27.0-33.0); Mean Corpuscular Volume 94.7 fL (80.0-98.0); Mean Platelet Volume 10.4 fL (9.4-12.4); Monocytes Absolute Auto 0.9 X10*3/uL (0.1-1.2); Monocytes Percent Auto 4.7 % (2-11); NRBC Pct Auto 0.1 /100WBC (0.0-0.2); Neutrophils Absolute Auto 17.1 x10*3/uL (2.0-8.3); Neutrophils Percent Auto 90.3 % (45-73); Platelet Count 151 X10*3/uL (160-400); Red Blood Count 2.65 X10*6/uL (4.60-5.80); Red Cell Distribution Width 17.4 % (11.0-16.0); SCAN SMEAR FLAG 1; White Blood Count 18.9 X10*3/uL (4.8-10.8)
[2024-05-25 05:19] LABS: VBG Base Excess 20.3 mmol/L; VBG HCO3 44 mmol/L (22-26); VBG pCO2 48 mmHg; VBG pH 7.57 (7.32-7.43); VBG pO2 82 mmHg
[2024-05-25 05:32] LABS: Albumin Level 2.7 g/dL (3.5-5.0)
[2024-05-25 05:33] LABS: SLIDE REVIEW VERIFIED
[2024-05-25 05:43] LABS: Anion Gap 15 (12-20); Blood Urea Nitrogen 21 mg/dL (9-16); Calcium 8.7 mg/dL (8.4-10.2); Carbon Dioxide 34 mmol/L (22-29); Chloride 90 mmol/L (96-108); Creatinine Clr Calc Pharmacy 85.9; Estimated Glomerular Filt Rate > 60; Glucose Random 129 mg/dL (60-115); Magnesium 2.2 mg/dL (1.6-2.6); Phosphorus 2.1 mg/dL (2.7-4.5); Potassium 3.6 mmol/L (3.3-5.1); Sodium 135 mmol/L (135-145)
[2024-05-25 05:57] LABS: Venous Blood Gas Refer to POC result
[2024-05-25] MEDS: Potassium Phosphate/NS 15 MMOL/250 ML PLAST..BAG 62.5 MMOL IV ×2 (06:10→10:11)
[2024-05-25] MEDS: Albuterol/Iprat 2.5/0.5MG 3 ML AMPUL.NEB INHALE ×4 (08:04→19:39)
[2024-05-25] MEDS: Tiotropium Bromide 2.5 mcg 1 PUFF/2.5 MCG MIST.INHAL 2 PUFF INHALE (08:04)
[2024-05-25] MEDS: methylPREDNISolone Sod Succ 125 MG/2 ML VIAL 60 MG IVPUSH (08:24)
[2024-05-25] MEDS: Midodrine HCl 2.5 MG TABLET PO ×3 (08:24→20:15)
--- NOTE | 2024-05-25 09:28 | P.PNCC_ITS ---
Subjective Subjective Date of Service: 05/25/24 Interval History: intermittent encephalopathy, necessitating BiPAP Critical Care Time (minutes): 60 Physical Exam 2 Vital Signs: Vital Signs: Last Vital Signs Temp 96.8 F 05/25/24 09:00 Pulse 66 05/25/24 09:00 Resp 16 05/25/24 09:00 BP 119/48 L 05/25/24 09:00 Pulse Ox 95 05/25/24 09:00 O2 Del Method Nasal Cannula 05/25/24 09:00 O2 Flow Rate 1 05/25/24 09:00 FiO2 24 05/25/24 07:10 Oxygen Flow Rate 3 05/20/24 13:32 BMI result Body Mass Index 37.8 Const: Other: fatigued, though easily arousable w/ verbal stimulus General: cooperative, no acute distress and well developed O rientation/consciousness: patient oriented x3 HEENT: Head: Yes normal to inspection, Yes normocephalic and Yes atraumatic Eyes: General: appearance normal, both eyes and all related structures Neck: Neck: Yes normal visual inspection, Yes full ROM, Yes no meningeal signs, Yes trachea midline and Yes supple Chest: Chest palpation & inspection: normal inspection of the chest Resp: Other: no appreciable rales, rhonchi, wheezing Effort & Inspection: normal respiratory effort Cardio: Rate: regular rate Rhythm: regular rhythm GI: Inspection: Yes normal to inspection, No Abdominal wall edema and No distended Palpation (GI): Soft to palpation, not firm, nontender, no guarding and not rigid Skin: General skin exam: no rashes or lesions noted Neuro: General: patient oriented x3, tone normal, moves all extremities, no meningeal signs and no focal motor deficits Extrem: General: Yes normal to inspection, Yes full ROM, Yes capillary refill normal and Yes no clubbing, cyanosis or edema Psych: Appearance: grossly normal Objective Data Labs 05/25/24 05:10 05/25/24 05:10 Labs: Laboratory Results - last 24 hr 05/25/24 05/25/24 05:07 05:10 WBC 18.9 H RBC 2.65 L Hgb 8.4 L Hct 25.1 L MCV 94.7 MCH 31.7 MCHC 33.5 RDW 17.4 H Plt Count 151 L MPV 10.4 Immature Gran % (Auto) 0.8 H Neut % (Auto) 90.3 H Lymph % (Auto) 4.1 L [place] % (Auto) 4.7 Eos % (Auto) 0.0 Baso % (Auto) 0.1 Lymph # (Auto) 0.8 L [place] # (Auto) 0.9 Eos # (Auto) 0.0 Baso # (Auto) 0.0 Abs Immat Gran (auto) 0.16 H Absolute Neuts (auto) 17.1 H Absolute Nucleated RBC 0.020 H Nucleated RBC % (auto) 0.1 Smear Tech's Comments VERIFIED VBG pH 7.57 H VBG pCO2 48 VBG pO2 82 VBG HCO3 44 H VBG O2 Saturation 99.0 VBG Base Excess 20.3 Sodium 135 Potassium 3.6 Chloride 90 L Carbon Dioxide 34 H Anion Gap 15 BUN 21 H Creatinine 0.89 Estim Creat Clear Calc 85.9 Estimated GFR > 60 Random Glucose 129 H Calcium 8.7 Phosphorus 2.1 L Magnesium 2.2 Albumin 2.7 L Microbiology Microbiology Results: Microbiology 05/20/24 16:47 Blood - Venous Blood Culture - Preliminary No growth after 48 hours. 05/20/24 16:28 Blood - Venous Blood Culture - Final Coag negative Staphylococcus Progress Note: A&P Assessment and plan (1) Acute metabolic encephalopathy: Status: Acute (2) Respiratory failure with hypoxia and hypercapnia: Status: Acute (3) Pneumonia: Status: Acute (4) COPD (chronic obstructive pulmonary disease): Status: Acute Plan Patient is a 78 Y M with heart failure, atrial fibrillation on rivaroxaban, s/p pacemaker, COPD c/b chronic mixed respiratory failure, on 4 L NC baseline, and recent COPD exacerbation on 05/12, who re-presented to the ED on 05/20 w/ visual and auditory hallucinations and intermittent encephalopathy, found to be hypothermic, though grossly unrevealing work-up, admitted medicine for continued management, w/ some interval improvement of encephalopathy; on 05/23, patient developed obtundation, found to have acute on chronic hypercarbic respiratory failure, admitted ICU for BiPAP N: intermittent encephalopathy CV: intermittent hypotension, though no overt shock, started on midodrine; to monitor very closely R: COPD c/b chronic mixed respiratory failure, on 4 L NC baseline, BiPAP when sleeping and as needed GI: NPO while encephalopathic, advance diet as tolerated : no acute issues H: no acute issues; atrial fibrillation, home rivaroxaban when tolerating PO; mechanical devices ID: possible pneumonia, empiric azithromycin, zosyn E: no acute issues; to monitor hypo-/hyper-glycemia P: visual and auditory hallucinations, resolved Quality Stroke Does the patient have a stroke diagnosis?: No VTE Prior VTE?: No VTE Risk Level:: Medical - moderate - high VTE Device Contraindication: N/A - Device Ordered VTE Drug Contraindication: N/A - Med Ordered
--- NOTE | 2024-05-25 13:48 | MHC.CM.PN ---
Pt continues on intermittent BiPap in ICU for management of encephalopathy. [facility] referrals made should he require a higher level of skill than his existing [facility] and spouse can provide. CM to follow.
[2024-05-25] MEDS: Rivaroxaban 20 MG TABLET PO (16:52)
[2024-05-25] MEDS: Azithromycin 500 MG in 0.9 % Sodium Chloride 250 ML 125 MG IV (17:08)
[2024-05-26] VITALS (23 sets, daily range): BP systolic 98–125; BP diastolic 39–64; PULSE 61–113; RESP 12–23; TEMP 36.8–37.6; O2SAT 92–99
--- NOTE | 2024-05-26 | ECG_ITS ---
Test Reason : Tachycardia Blood Pressure : / mmHG Vent. Rate : 117 BPM Atrial Rate : 000 BPM P-R Int : 000 ms QRS Dur : 120 ms QT Int : 306 ms P-R-T Axes : 000 -47 110 degrees QTc Int : 426 ms Atrial fibrillation with rapid ventricular response Left axis deviation Non-specific intra-ventricular conduction delay Minimal voltage criteria for LVH, may be normal variant ( Sly product ) Marked ST abnormality, possible lateral subendocardial injury Abnormal ECG When compared with ECG of 23-MAY-2024 19:03, Atrial fibrillation has replaced Electronic ventricular pacemaker Vent. rate has increased BY 64 BPM Referred By: Sada Solomon Electronically Signed By:DARON GAYTAN
[2024-05-26] MEDS: Piperacillin Sodium/Tazobactam 3.375 GM in 0.9 % Sodium Chloride 50 ML IV ×4 (00:09→17:40)
[2024-05-26 05:27] LABS: VBG Base Excess 18.5 mmol/L; VBG HCO3 42 mmol/L (22-26); VBG pCO2 48 mmHg; VBG pH 7.55 (7.32-7.43); VBG pO2 39 mmHg
[2024-05-26 05:39] LABS: MANUAL DIFF FLAG NO
[2024-05-26 05:41] LABS: Basophils Percent Auto 0.2 % (0-2); Hematocrit 26.2 % (42.0-52.0); Hemoglobin 8.6 g/dl (14.0-18.0); Imm Gran Abs Auto 0.18 X10*3/uL (0.00-0.03); Imm Gran Pct Auto 0.9 % (0.0-0.4); Lymphocytes Absolute Auto 0.8 X10*3/uL (1.2-4.9); Lymphocytes Percent Auto 4.3 % (20-40); Mean Corpuscular HGB Conc 32.8 g/dl (31.0-36.0); Mean Corpuscular Hemoglobin 31.2 pg (27.0-33.0); Mean Corpuscular Volume 94.9 fL (80.0-98.0); Mean Platelet Volume 10.6 fL (9.4-12.4); Monocytes Percent Auto 5.1 % (2-11); Neutrophils Absolute Auto 17.2 x10*3/uL (2.0-8.3); Neutrophils Percent Auto 89.5 % (45-73); Platelet Count 168 X10*3/uL (160-400); Red Blood Count 2.76 X10*6/uL (4.60-5.80); Red Cell Distribution Width 17.9 % (11.0-16.0); White Blood Count 19.3 X10*3/uL (4.8-10.8)
[2024-05-26 05:46] LABS: Venous Blood Gas Refer to POC result
[2024-05-26 06:11] LABS: Anion Gap 11 (12-20); Blood Urea Nitrogen 21 mg/dL (9-16); Calcium 9.1 mg/dL (8.4-10.2); Carbon Dioxide 37 mmol/L (22-29); Chloride 92 mmol/L (96-108); Creatinine Clr Calc Pharmacy 83.1; Estimated Glomerular Filt Rate > 60; Glucose Random 138 mg/dL (60-115); Magnesium 2.1 mg/dL (1.6-2.6); Phosphorus 2.2 mg/dL (2.7-4.5); Potassium 4.5 mmol/L (3.3-5.1); Sodium 135 mmol/L (135-145)
--- NOTE | 2024-05-26 07:28 | PC.RT ---
pt refused to wear sleep study last night and also refused to wear cpap as well.
[2024-05-26] MEDS: Tiotropium Bromide 2.5 mcg 1 PUFF/2.5 MCG MIST.INHAL 2 PUFF INHALE (07:37)
[2024-05-26] MEDS: Albuterol/Iprat 2.5/0.5MG 3 ML AMPUL.NEB INHALE ×3 (07:39→15:09)
[2024-05-26] MEDS: methylPREDNISolone Sod Succ 125 MG/2 ML VIAL 60 MG IVPUSH (08:00)
[2024-05-26] MEDS: Atorvastatin Calcium 20 MG TABLET PO (08:01)
[2024-05-26] MEDS: Sodium,Potassium Phosphates POWD.PACK 1 PACKET PO (08:01)
[2024-05-26] MEDS: Midodrine HCl 2.5 MG TABLET PO (08:01)
[2024-05-26] MEDS: 0.9 % Sodium Chloride Flush 3 ML SYRINGE IVFLUSH ×3 (08:01→19:53)
--- NOTE | 2024-05-26 08:49 | P.PNCC_ITS ---
Subjective Subjective Date of Service: 05/26/24 Interval History: refusing BiPAP and sleep study last night; otherwise no significant overnight events Critical Care Time (minutes): 60 Physical Exam 2 Vital Signs: Vital Signs: Last Vital Signs Temp 98.4 F 05/26/24 08:00 Pulse 71 05/26/24 08:00 Resp 18 05/26/24 08:00 BP 125/54 L 05/26/24 08:00 Pulse Ox 96 05/26/24 08:00 O2 Del Method Nasal Cannula 05/26/24 08:00 O2 Flow Rate 0.5 05/26/24 08:00 FiO2 24 05/25/24 14:00 Oxygen Flow Rate 3 05/20/24 13:32 BMI result Body Mass Index 37.8 Const: General: cooperative, healthy appearing, comfortable, no acute distress, well developed, alert, awake and Physically active O rientation/consciousness: oriented to person and oriented to place HEENT: Head: Yes normal to inspection, Yes normocephalic and Yes atraumatic Eyes: General: appearance normal, both eyes and all related structures Neck: Neck: Yes normal visual inspection, Yes full ROM, Yes no meningeal signs, Yes trachea midline and Yes supple Chest: Chest palpation & inspection: normal inspection of the chest Resp: Other: no appreciable rales, rhonchi, wheezing Effort & Inspection: normal respiratory effort Cardio: Rate: regular rate Rhythm: abnormal rhythm GI: Inspection: Yes normal to inspection, No Abdominal wall edema and No distended Palpation (GI): Soft to palpation, not firm, nontender, no guarding and not rigid Skin: General skin exam: no rashes or lesions noted Neuro: General: oriented to person, oriented to place, tone normal, moves all extremities, no meningeal signs and no focal motor deficits Extrem: General: Yes normal to inspection, Yes full ROM, Yes capillary refill normal and Yes no clubbing, cyanosis or edema Psych: Appearance: grossly normal Objective Data Labs 05/26/24 05:22 05/26/24 05:22 Labs: Laboratory Results - last 24 hr 05/26/24 05/26/24 05:18 05:22 WBC 19.3 H RBC 2.76 L Hgb 8.6 L Hct 26.2 L MCV 94.9 MCH 31.2 MCHC 32.8 RDW 17.9 H Plt Count 168 MPV 10.6 Immature Gran % (Auto) 0.9 H Neut % (Auto) 89.5 H Lymph % (Auto) 4.3 L [place] % (Auto) 5.1 Eos % (Auto) 0.0 Baso % (Auto) 0.2 Lymph # (Auto) 0.8 L [place] # (Auto) 1.0 Eos # (Auto) 0.0 Baso # (Auto) 0.0 Abs Immat Gran (auto) 0.18 H Absolute Neuts (auto) 17.2 H Absolute Nucleated RBC 0.000 Nucleated RBC % (auto) 0.0 VBG pH 7.55 H VBG pCO2 48 VBG pO2 39 VBG HCO3 42 H VBG O2 Saturation 72.0 VBG Base Excess 18.5 Sodium 135 Potassium 4.5 D Chloride 92 L Carbon Dioxide 37 H Anion Gap 11 L BUN 21 H Creatinine 0.92 Estim Creat Clear Calc 83.1 Estimated GFR > 60 Random Glucose 138 H Calcium 9.1 Phosphorus 2.2 L Magnesium 2.1 Microbiology Microbiology Results: Microbiology 05/20/24 16:47 Blood - Venous Blood Culture - Final No growth after 5 days. 05/20/24 16:28 Blood - Venous Blood Culture - Final Coag negative Staphylococcus Progress Note: A&P Assessment and plan (1) Acute metabolic encephalopathy: Status: Acute (2) Respiratory failure with hypoxia and hypercapnia: Status: Acute (3) COPD (chronic obstructive pulmonary disease): Status: Acute Plan Patient is a 78 Y M with heart failure, atrial fibrillation on rivaroxaban, s/p pacemaker, COPD c/b chronic mixed respiratory failure, on 4 L NC baseline, and recent COPD exacerbation on 05/12, who re-presented to the ED on 05/20 w/ visual and auditory hallucinations and intermittent encephalopathy, found to be hypothermic, though grossly unrevealing work-up, admitted medicine for continued management, w/ some interval improvement of encephalopathy; on 05/23, patient developed obtundation, found to have acute on chronic hypercarbic respiratory failure, admitted ICU for BiPAP N: intermittent encephalopathy, likely toxic-metabolic CV: intermittent hypotension, though no overt shock, started on midodrine; to monitor very closely R: COPD c/b chronic mixed respiratory failure, on 4 L NC baseline, BiPAP when sleeping and as needed, though now refusing GI: NPO while encephalopathic, advance diet as tolerated : no acute issues H: no acute issues; atrial fibrillation, home rivaroxaban ID: possible pneumonia, empiric azithromycin, zosyn E: no acute issues; to monitor hypo-/hyper-glycemia P: visual and auditory hallucinations, resolved Quality Stroke Does the patient have a stroke diagnosis?: No VTE Prior VTE?: No VTE Risk Level:: Medical - moderate - high VTE Device Contraindication: N/A - Device Ordered VTE Drug Contraindication: N/A - Med Ordered
[2024-05-26] MEDS: Metoprolol Tartrate 5 MG/5 ML VIAL 10 MG IVPUSH (09:29)
[2024-05-26] MEDS: acetaZOLAMIDE 250 MG TABLET 500 MG PO (09:34)
--- NOTE | 2024-05-26 09:34 | W.MHC.ACPN ---
Advanced Care Planning Note Advanced Care Planning Note Discussed with: family member(s) Time spent (in minutes): 15 Narrative: I called Ms. Ramirez to offer updates. We discussed Mr. Ramirez's goals of care. After discussing in person yesterday with Ms. Ramirez, their son, and [id number], Mr. Ramirez's family believe that Mr. Ramirez's wishes would be to be DNR, DNI based on his values. Ms. Ramirez's family plan to come to the hospital today to continue goals of care conversations. Problems Discussed (1) Acute metabolic encephalopathy: (2) Respiratory failure with hypoxia and hypercapnia: (3) COPD (chronic obstructive pulmonary disease):
[2024-05-26] MEDS: Furosemide 20 MG/2 ML VIAL 10 MG IVPUSH (09:35)
--- NOTE | 2024-05-26 14:00 | W.MHC.ACPN ---
Advanced Care Planning Note Advanced Care Planning Note Discussed with: patient and family member(s) Time spent (in minutes): 30 Narrative: Mr. Ramirez's , sons, and [id number] were at Mr. Ramirez's bedside today. They stated that after talking to Mr. Ramirez and as a family, they believe that Mr. Ramirez no longer wants non-invasive ventilation. We discussed that given such, Mr. Ramirez will eventually become hypercarbic, and would likely . They expressed understanding of this. We then discussed comfort-focused and hospice care. They stated they will continue to speak with Mr. Ramirez and as a family. Problems Discussed (1) Acute metabolic encephalopathy: (2) Respiratory failure with hypoxia and hypercapnia: (3) COPD (chronic obstructive pulmonary disease):
--- NOTE | 2024-05-26 15:31 | P.ACPN_ITS ---
Advanced Care Planning Note Advanced Care Planning Note Discussed with: family member(s) Time spent (in minutes): 5 Narrative: After discussing with Mr. Ramirez and as a family, Mr. Ramirez and his family have decided to transition his philosophy of care to comfort- focused/hospice care. Problems Discussed (1) Acute metabolic encephalopathy: (2) Respiratory failure with hypoxia and hypercapnia: (3) COPD (chronic obstructive pulmonary disease):
[2024-05-26] MEDS: oxyCODONE HCl Immed Release 5 MG TABLET PO (17:23)
[2024-05-26] MEDS: Rivaroxaban 20 MG TABLET PO (17:24)
[2024-05-27] VITALS (9 sets, daily range): BP systolic 113–129; BP diastolic 58–69; PULSE 59–89; RESP 16–18; TEMP 36–36.6; O2SAT 97–100
[2024-05-27] MEDS: Piperacillin Sodium/Tazobactam 3.375 GM in 0.9 % Sodium Chloride 50 ML IV ×4 (00:18→17:32)
--- NOTE | 2024-05-27 07:41 | P.PNCC_ITS ---
Subjective Subjective Date of Service: 05/27/24 Interval History: no significant overnight events Critical Care Time (minutes): 0 Physical Exam 2 Vital Signs: Vital Signs: Last Vital Signs Temp 99 F 05/26/24 22:00 Pulse 66 05/27/24 05:16 Resp 18 05/27/24 05:16 BP 123/59 L 05/26/24 22:00 Pulse Ox 99 05/27/24 05:16 O2 Del Method Nasal Cannula 05/27/24 05:16 O2 Flow Rate 3 05/27/24 05:16 FiO2 24 05/25/24 14:00 Oxygen Flow Rate 3 05/20/24 13:32 BMI result Body Mass Index 37.8 Const: General: cooperative, healthy appearing, comfortable, no acute distress, well developed, alert, awake and Physically active O rientation/consciousness: oriented to person and oriented to place HEENT: Head: Yes normal to inspection, Yes normocephalic and Yes atraumatic Eyes: General: appearance normal, both eyes and all related structures Neck: Neck: Yes normal visual inspection, Yes full ROM, Yes trachea midline and Yes supple Chest: Chest palpation & inspection: normal inspection of the chest Resp: Other: no appreciable rales, rhonchi, wheezing Effort & Inspection: normal respiratory effort Cardio: Rate: bradycardic Rhythm: abnormal rhythm GI: Inspection: Yes normal to inspection, No Abdominal wall edema and No distended Palpation (GI): Soft to palpation, not firm, nontender, no guarding and not rigid Skin: General skin exam: no rashes or lesions noted Neuro: General: oriented to person, oriented to place, tone normal, moves all extremities and no focal motor deficits Extrem: General: Yes normal to inspection, Yes full ROM and Yes capillary refill normal Psych: Appearance: grossly normal Objective Data Labs 05/26/24 05:22 05/26/24 05:22 Microbiology Microbiology Results: Microbiology 05/20/24 16:47 Blood - Venous Blood Culture - Final No growth after 5 days. 05/20/24 16:28 Blood - Venous Blood Culture - Final Coag negative Staphylococcus Progress Note: A&P Assessment and plan (1) Respiratory failure with hypoxia and hypercapnia: Status: Acute (2) COPD (chronic obstructive pulmonary disease): Status: Acute Plan Patient is a 78 Y M with heart failure, atrial fibrillation on rivaroxaban, s/p pacemaker, COPD c/b chronic mixed respiratory failure, on 4 L NC baseline, and recent COPD exacerbation on 05/12, who re-presented to the ED on 05/20 w/ visual and auditory hallucinations and intermittent encephalopathy, found to be hypothermic, though grossly unrevealing work-up, admitted medicine for continued management, w/ some interval improvement of encephalopathy; on 05/23, patient developed obtundation, found to have acute on chronic hypercarbic respiratory failure, admitted ICU for BiPAP; on 05/26, transitioned to comfort-focused care N, CV: no acute issues R: COPD c/b chronic mixed respiratory failure, on 4 L NC baseline; per philosophy of care, no longer desires BiPAP, intubation GI: liberated diet , H, ID, E, P: no acute issues S: comfort-focused care/palliative care; symptoms appear well-controlled Quality Stroke Does the patient have a stroke diagnosis?: No VTE Prior VTE?: No VTE Risk Level:: Medical - moderate - high VTE Device Contraindication: N/A - Device Ordered VTE Drug Contraindication: N/A - Med Ordered
[2024-05-27] MEDS: Scopolamine 1.5 MG PATCH.TD.3 EAR-BEHIND (09:59)
[2024-05-27] MEDS: 0.9 % Sodium Chloride Flush 3 ML SYRINGE IVFLUSH ×3 (10:00→20:02)
[2024-05-27] MEDS: Tiotropium Bromide 2.5 mcg 1 PUFF/2.5 MCG MIST.INHAL 2 PUFF INHALE (10:04)
[2024-05-27] MEDS: Atorvastatin Calcium 20 MG TABLET PO (12:57)
[2024-05-27] MEDS: Albuterol/Iprat 2.5/0.5MG 3 ML AMPUL.NEB INHALE ×2 (15:23→19:50)
[2024-05-27] MEDS: Rivaroxaban 20 MG TABLET PO (17:30)
[2024-05-27] MEDS: allopurinoL 100 MG TABLET 200 MG PO (20:00)
[2024-05-28 07:39] VITALS: BP 124/84; PULSE 84; RESP 18; TEMP 36.3; O2SAT 96
[2024-05-28] MEDS: Albuterol/Iprat 2.5/0.5MG 3 ML AMPUL.NEB INHALE ×3 (07:53→20:23)
[2024-05-28] MEDS: Tiotropium Bromide 2.5 mcg 1 PUFF/2.5 MCG MIST.INHAL 2 PUFF INHALE (07:53)
[2024-05-28 07:54] VITALS: PULSE 92; RESP 18; O2SAT 97
[2024-05-28] MEDS: 0.9 % Sodium Chloride Flush 3 ML SYRINGE IVFLUSH ×3 (08:06→23:52)
[2024-05-28] MEDS: Atorvastatin Calcium 20 MG TABLET PO (08:06)
[2024-05-28] MEDS: Magnesium Hydrox/Alum Hydrox 30 ML ORAL.SUSP PO (09:36)
[2024-05-28] MEDS: Omeprazole 20 MG CAPSULE.DR PO (09:36)
--- NOTE | 2024-05-28 11:11 | MHC.CM.PN ---
Addendum entered by Isabel Giraldo 05/28/24 15:51: [facility] informational happened today 05/28/24. The family and patient are accepting hospice. A call was made to [facility]. T/W spoke with Hoa Spain. She emailed a referral form. The referral form has been started today. [facility] aware of [facility] referral to [facility]. They have obtained PCP information. They will fax it to the facility. A Face sheet and preliminary referral form have been faxed to [facility]. Original Note: Dr Metz to have a goals of care conversation with patients . Hospice was briefly discussed. The wifes choice for hospice is [facility]. She was informed that [facility] also has a hospice division. Patient stated that she wants [facility]. An early referral has been sent. A hospice informational has been requested. DP TBD by goals of care conversation. CM will follow for discharge.
--- NOTE | 2024-05-28 11:13 | PC.NURSE ---
Skin redness and excoriation under abdominal folds,bilateral groin,scrotum,Dr. Metz notified ,nystatin ordered,wound nurse notified,consult in place
[2024-05-28] MEDS: Nystatin Powder 15 GM BOTTLE 1 APPL TOPICAL ×2 (12:44→20:45)
--- NOTE | 2024-05-28 12:58 | HO.WOUND ---
Wound Consult: Initial 78yr old?male admitted to [facility] on 05/20/24 - See progress notes and H&P for detailed history.? Wound consult placed for Groin, scrotum and abdominal skin fold.? Patient agreeable to assessment and photo documentation.? Chart review reveals patient was in ICU at time of admission and recently transitioned to Med Surg unit. Assessed for foam in place and redness noted to sacrum - chart review reveals two areas were noted on admission. Sacrum Etiology: ?Deep Tissue Injury Measurements: two sites measureing less and 1.5cm each Wound Bed: intact maroon purple nonblanchable tissue Drainage / Odor: None Edges: ? irregular Laina wound: ?red pink tissue intact and remains blanchable - No Induration, Fluctuance or Warmth noted Pain: denies Goals of Treatment: ? Off Load Pressure and foam dressing Abdominal Skin Fold Groin and inner thighs Etiology: MASD Wound Bed: mirrored red pink moist tissue - areas of maceration and epidermal peeling noted Drainage / Odor: None noted Edges: ?mirrored Laina wound: ?intact Pain: reports pain Goals of Treatment: ?Interdry for translocation of moisture and barrier cream Recommendations: 1. Turn and Reposition every 2 hours and as needed for patient comfort.? Use pillows or wedges to support off loading positions. 2. Off Load all bony prominences with use of pillows and heel boots if needed.? Apply Preventative foams where needed. ? 3. Monitor for incontinence and moisture control, use barrier creams when needed for prevention and treatment. 4. Provide adequate and supplemental nutrition.? 5. Order low air loss mattress. 6. When applicable maintain blood glucose levels per Providers order. 7. Sacrum - Off Load Pressure - Routine cleansing. Apply sacral foam dressing. Assess Q shift and change every 5 days and PRN. 8. Abdominal Skin Fold - Routine Cleansing, dry well. Tuck Interdry AG Sheet into skin fold to wick and translocate moisture away from skin fold.? Be sure to leave at least 2 inch of fabric exposed outside of skin fold.? Change when soiled or after 5 days. 9. Scrotum and groin - Cleanse with PH balanced spray / wipe. Apply barrier cream to affected area twice daily and PRN after episodes of incontinence. Re-consult wound care Nurse for wound deterioration or wound changes.
--- NOTE | 2024-05-28 13:33 | MHC.CLN ---
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
--- NOTE | 2024-05-28 14:46 | P.PNIM_ITS ---
Subjective Subjective Date of Service: 05/28/24 Interval History: Being followed for chronic hypoxic/hypercarbic respiratory failure due to hypoventilation syndrome. Patient awake alert this morning complaining of heartburn denies shortness of breath, no cough, no nausea, no vomiting tolerating diet offers no other complaints. Review of Systems All other system reviewed and are negative. Physical Exam 2 Vital Signs: Vital Signs: Last Vital Signs Temp 97.3 F 05/28/24 07:39 Pulse 92 05/28/24 07:54 Resp 18 05/28/24 07:54 BP 124/84 05/28/24 07:39 Pulse Ox 96 05/28/24 07:39 O2 Del Method Nasal Cannula 05/28/24 07:39 O2 Flow Rate 3.0 05/28/24 07:39 FiO2 24 05/25/24 14:00 Oxygen Flow Rate 3 05/20/24 13:32 BMI result Body Mass Index 37.8 Const: Other: General awake alert x3, in no acute distress. Neck no JVD. CVS regular rate rhythm, Respiratory no respiratory distress, no wheeze, no rhonchi. Gastrointestinal abdomen soft, obese, non tender, bowel sounds audible Neuro non focal Psych appropriate affect Objective Data Active Medications Acetaminophen (Acetaminophen 325 Mg Tablet) 650 mg PO Q4H PRN PRN Reason: Fever >/= 100, Pain, mild 1-3 Al Hydroxide/Mg Hydroxide (Magnesium Hydrox/Alum Hydrox 30 Ml Oral.Susp) 30 ml PO Q6H PRN PRN Reason: heartburn Last Admin: 05/28/24 09:36 Dose: 30 ml Documented By: CHARITO Comments: pt requested for heartburn Albuterol/Ipratropium (Albuterol/Iprat 2.5/0.5mg 3 Ml Ampul.Neb) 3 ml INHALE RQ4H WHILE AWAKE [facility] Last Admin: 05/28/24 11:24 Dose: Not Given Documented By: SAÚL Non-Admin Reason: Patient Asleep Allopurinol (Allopurinol 100 Mg Tablet) 200 mg PO BEDTIME [facility] Last Admin: 05/27/24 20:00 Dose: 200 mg Documented By: GRIFFINRISNorma Artificial Tears (Artificial Tears 15 Ml Drops) 2 drop EYE-BOTH Q4H PRN PRN Reason: Dry Eyes Atorvastatin Calcium (Atorvastatin Calcium 20 Mg Tablet) 20 mg PO DAILY [facility] Last Admin: 05/28/24 08:06 Dose: 20 mg Documented By: CHARITO Docusate Sodium (Docusate Sodium 100 Mg Capsule) 100 mg PO BEDTIME PRN PRN Reason: Constipation Fentanyl (Fentanyl Citrate/Pf 100 Mcg/2 Ml Vial) 50 mcg IVPUSH Q1H PRN; Protocol PRN Reason: Dyspnea Glycopyrrolate (Glycopyrrolate 0.2 Mg/Ml Vial) 0.2 mg IVPUSH Q6H PRN PRN Reason: Respiratory secretions Haloperidol Lactate (Haloperidol Lactate 5 Mg/Ml Vial) 0.5 mg IVPUSH Q4H PRN PRN Reason: Delirium Ibuprofen (Ibuprofen 400 Mg Tablet) 400 mg PO Q6H PRN PRN Reason: Fever >/= 100, Pain, mild 1-3 Lorazepam (Lorazepam 2 Mg/Ml Vial) 0.5 mg IVPUSH Q4H PRN PRN Reason: Myoclonic twitching/anxiety Morphine Sulfate (Morphine Sulfate Immed Release 15 Mg Tablet) 15 mg PO Q4H PRN PRN Reason: Pain, Severe (Pain Scale 7-10) Nystatin (Nystatin Powder 15 Gm Bottle) 1 appl TOPICAL BID [facility]; Protocol Last Admin: 05/28/24 12:44 Dose: 1 appl Documented By: CHARITO Omeprazole (Omeprazole 20 Mg Capsule.) 20 mg PO DAILY@0630 [facility] Last Admin: 05/28/24 09:36 Dose: 20 mg Documented By: CHARITO Ondansetron HCl (Ondansetron Hcl 4 Mg/2 Ml Vial) 4 mg IVPUSH Q4H PRN PRN Reason: Nausea and Vomiting Oxycodone HCl (Oxycodone Hcl Immed Release 5 Mg Tablet) 5 mg PO Q4H PRN PRN Reason: Pain, Moderate(Pain Scale 4-6) Last Admin: 05/26/24 17:23 Dose: 5 mg Documented By: REBA Rivaroxaban (Rivaroxaban 20 Mg Tablet) 20 mg PO DAILY@1730 [facility] Last Admin: 05/27/24 17:30 Dose: 20 mg Documented By: CELINAARTEun Senna (Sennosides 8.6 Mg Tablet) 8.6 mg PO BEDTIME PRN PRN Reason: Constipation Sodium Chloride (0.9 % Sodium Chloride Flush 3 Ml Syringe) 3 ml IVFLUSH QSHIFT [facility] Last Admin: 05/28/24 08:06 Dose: 3 ml Documented By: CHARITO Tiotropium [place] (Tiotropium [place] 2.5 Mcg 1 Puff/2.5 Mcg Mist.Inhal) 2 puff INHALE RDAILY [facility] Last Admin: 05/28/24 07:53 Dose: 2 puff Documented By: GUIDIB Labs 05/26/24 05:22 05/26/24 05:22 Assessment and Plan (1) Respiratory failure with hypoxia and hypercapnia: Status: Acute Plan 78 Y M with heart failure, atrial fibrillation on rivaroxaban, s/p pacemaker, COPD c/b chronic mixed respiratory failure, on 4 L NC baseline, and recent COPD exacerbation on 05/12, who re-presented to the ED on 05/20 w/ visual and auditory hallucinations and intermittent encephalopathy, found to be hypothermic, though grossly unrevealing work-up, admitted medicine for continued management, w/ some interval improvement of encephalopathy; on 05/23, patient developed obtundation, found to have acute on chronic hypercarbic respiratory failure, admitted ICU for BiPAP; on 05/26, transitioned to comfort-focused care and transferred to medical floor on 05/27 History of chronic hypoxic and hypercarbic respiratory failure due to hypoventilation syndrome Patient declined continued use of BiPAP and intubation Will referred to hospice, called left message, rn case management arranging for hospice eval safe disposition Continue oxygen and home inhalers. Heartburn likely due to gastritis will add Prilosec and Maalox. Acute encephalopathy resolved. COPD no acute exacerbation, will resume all home inhalers and acetazolamide chronic alkalosis. History of gout continue allopurinol. Hyperlipidemia continue statins. Chronic persistent atrial fibrillation continue Xarelto and hold metoprolol. follow heart rate. DVT prophylaxis on Xarelto. Code status DNR DNI. In my clinical judgment patient require continued inpatient hospitalization for hospice evaluation and safe disposition. Quality Stroke Does the patient have a stroke diagnosis?: No VTE Prior VTE?: No VTE Risk Level:: Medical - moderate - high VTE Device Contraindication: N/A - Device Ordered VTE Drug Contraindication: N/A - Med Ordered
[2024-05-28 15:12] VITALS: BP 137/60; PULSE 92; RESP 18; TEMP 36.1; O2SAT 94
[2024-05-28 15:26] VITALS: PULSE 92; RESP 18; O2SAT 95
[2024-05-28] MEDS: Rivaroxaban 20 MG TABLET PO (16:12)
[2024-05-28 20:23] VITALS: PULSE 93; RESP 16; O2SAT 93
[2024-05-28] MEDS: allopurinoL 100 MG TABLET 200 MG PO (20:44)
[2024-05-29] VITALS (7 sets, daily range): BP systolic 129–147; BP diastolic 67–73; PULSE 76–98; RESP 8–20; TEMP 36–36.4; O2SAT 93–95
[2024-05-29] MEDS: Acetaminophen 325 MG TABLET 650 MG PO ×2 (00:04→09:50)
--- NOTE | 2024-05-29 06:36 | PC.NURSE ---
Notified MD Queen at 0636 this patient has blood tinged urine in jarquin since previous shift. Notified of last HH which was low and drawn on the fourth for this patient on xarelto. Notified no labs since and that Hospice consult is pending.
[2024-05-29] MEDS: Omeprazole 20 MG CAPSULE.DR PO (07:11)
[2024-05-29] MEDS: Albuterol/Iprat 2.5/0.5MG 3 ML AMPUL.NEB INHALE ×4 (07:34→20:36)
[2024-05-29] MEDS: Tiotropium Bromide 2.5 mcg 1 PUFF/2.5 MCG MIST.INHAL 2 PUFF INHALE (07:41)
[2024-05-29] MEDS: Sodium,Potassium Phosphates POWD.PACK 1 PACKET PO ×2 (09:48→19:45)
[2024-05-29] MEDS: 0.9 % Sodium Chloride Flush 3 ML SYRINGE IVFLUSH ×3 (09:49→19:46)
[2024-05-29] MEDS: Atorvastatin Calcium 20 MG TABLET PO (09:50)
[2024-05-29] MEDS: acetaZOLAMIDE 250 MG TABLET PO ×2 (09:50→19:45)
[2024-05-29] MEDS: Nystatin Powder 15 GM BOTTLE 1 APPL TOPICAL ×2 (09:51→21:02)
--- NOTE | 2024-05-29 10:00 | PC.NURSE ---
Roberts is draining blood tinged urine ,Dr. Metz made aware
--- NOTE | 2024-05-29 10:52 | P.PNIM_ITS ---
Subjective Subjective Date of Service: 05/29/24 Interval History: Being followed for acute metabolic encephalopathy and hypercarbic and hypoxic respiratory failure. Resting comfortably offers no acute complaints denies shortness of breath, no cough, no abdominal pain, wishes to remain in bed, Roberts catheter with blood tinged urine, patient denies urinary burning or pain, no other acute events overnight. Review of Systems All other system reviewed and are negative. Physical Exam 2 Vital Signs: Vital Signs: Last Vital Signs Temp 97.1 F 05/29/24 07:34 Pulse 98 05/29/24 07:34 Resp 18 05/29/24 07:34 BP 147/67 H 05/29/24 07:34 Pulse Ox 93 05/29/24 07:34 O2 Del Method Room Air 05/29/24 07:34 O2 Flow Rate 2 05/29/24 00:00 FiO2 24 05/25/24 14:00 Oxygen Flow Rate 3 05/20/24 13:32 BMI result Body Mass Index 37.8 Const: Other: General awake alert x3, in no acute distress. Neck no JVD. CVS regular rate rhythm, Respiratory no respiratory distress, no wheeze, no rhonchi. Gastrointestinal abdomen soft, obese, non tender, bowel sounds audible Neuro non focal Extremities no edema Psych appropriate affect Objective Data Active Medications Acetaminophen (Acetaminophen 325 Mg Tablet) 650 mg PO Q4H PRN PRN Reason: Fever >/= 100, Pain, mild 1-3 Last Admin: 05/29/24 09:50 Dose: 650 mg Documented By: CHARITO Acetazolamide (Acetazolamide 250 Mg Tablet) 250 mg PO BID ON LICENSE OF [facility] Last Admin: 05/29/24 09:50 Dose: 250 mg Documented By: CHARITO Al Hydroxide/Mg Hydroxide (Magnesium Hydrox/Alum Hydrox 30 Ml Oral.Susp) 30 ml PO Q6H PRN PRN Reason: heartburn Last Admin: 05/28/24 09:36 Dose: 30 ml Documented By: CHARITO Comments: pt requested for heartburn Albuterol/Ipratropium (Albuterol/Iprat 2.5/0.5mg 3 Ml Ampul.Neb) 3 ml INHALE RQ4H WHILE AWAKE ON LICENSE OF [facility] Last Admin: 05/29/24 07:34 Dose: 3 ml Documented By: KADEN Allopurinol (Allopurinol 100 Mg Tablet) 200 mg PO BEDTIME ON LICENSE OF [facility] Last Admin: 05/28/24 20:44 Dose: 200 mg Documented By: ROCHELLE Artificial Tears (Artificial Tears 15 Ml Drops) 2 drop EYE-BOTH Q4H PRN PRN Reason: Dry Eyes Atorvastatin Calcium (Atorvastatin Calcium 20 Mg Tablet) 20 mg PO DAILY ON LICENSE OF [facility] Last Admin: 05/29/24 09:50 Dose: 20 mg Documented By: CHARITO Docusate Sodium (Docusate Sodium 100 Mg Capsule) 100 mg PO BEDTIME PRN PRN Reason: Constipation Fentanyl (Fentanyl Citrate/Pf 100 Mcg/2 Ml Vial) 50 mcg IVPUSH Q1H PRN; Protocol PRN Reason: Dyspnea Glycopyrrolate (Glycopyrrolate 0.2 Mg/Ml Vial) 0.2 mg IVPUSH Q6H PRN PRN Reason: Respiratory secretions Haloperidol Lactate (Haloperidol Lactate 5 Mg/Ml Vial) 0.5 mg IVPUSH Q4H PRN PRN Reason: Delirium Ibuprofen (Ibuprofen 400 Mg Tablet) 400 mg PO Q6H PRN PRN Reason: Fever >/= 100, Pain, mild 1-3 Lorazepam (Lorazepam 2 Mg/Ml Vial) 0.5 mg IVPUSH Q4H PRN PRN Reason: Myoclonic twitching/anxiety Morphine Sulfate (Morphine Sulfate Immed Release 15 Mg Tablet) 15 mg PO Q4H PRN PRN Reason: Pain, Severe (Pain Scale 7-10) Nystatin (Nystatin Powder 15 Gm Bottle) 1 appl TOPICAL BID ON LICENSE OF [facility]; Protocol Last Admin: 05/29/24 09:51 Dose: 1 appl Documented By: CHARITO Omeprazole (Omeprazole 20 Mg Capsule.Dr) 20 mg PO DAILY@0630 ON LICENSE OF [facility] Last Admin: 05/29/24 07:11 Dose: 20 mg Documented By: LEYDA Ondansetron HCl (Ondansetron Hcl 4 Mg/2 Ml Vial) 4 mg IVPUSH Q4H PRN PRN Reason: Nausea and Vomiting Oxycodone HCl (Oxycodone Hcl Immed Release 5 Mg Tablet) 5 mg PO Q4H PRN PRN Reason: Pain, Moderate(Pain Scale 4-6) Last Admin: 05/26/24 17:23 Dose: 5 mg Documented By: REBA Potassium Phos/Sodium Phos (Sodium,Potassium Phosphates Powd.Pack) 1 packet PO BID ON LICENSE OF [facility] Stop: 05/30/24 21:01 Last Admin: 05/29/24 09:48 Dose: 1 packet Documented By: CHARITO Rivaroxaban (Rivaroxaban 20 Mg Tablet) 20 mg PO DAILY@1730 ON LICENSE OF [facility] Last Admin: 05/28/24 16:12 Dose: 20 mg Documented By: CHARITO Senna (Sennosides 8.6 Mg Tablet) 8.6 mg PO BEDTIME PRN PRN Reason: Constipation Sodium Chloride (0.9 % Sodium Chloride Flush 3 Ml Syringe) 3 ml IVFLUSH QSHIFT ON LICENSE OF [facility] Last Admin: 05/29/24 09:49 Dose: 3 ml Documented By: CHARITO Sodium Chloride (Sodium Chloride 0.65 % Nasal 44 Ml Sprbtl) 1 spray NOSTRIL-B Q1H PRN PRN Reason: Dryness Tiotropium [place] (Tiotropium [place] 2.5 Mcg 1 Puff/2.5 Mcg Mist.Inhal) 2 puff INHALE RDAILY ON LICENSE OF [facility] Last Admin: 05/29/24 07:41 Dose: 2 puff Documented By: DAYANAL Labs 05/26/24 05:22 05/26/24 05:22 Assessment and Plan (1) Respiratory failure with hypoxia and hypercapnia: Status: Acute Plan 78 Y M with heart failure, atrial fibrillation on rivaroxaban, s/p pacemaker, COPD c/b chronic mixed respiratory failure, on 4 L NC baseline, and recent COPD exacerbation on 05/12, who re-presented to the ED on 05/20 w/ visual and auditory hallucinations and intermittent encephalopathy, found to be hypothermic, though grossly unrevealing work-up, admitted medicine for continued management, w/ some interval improvement of encephalopathy; on 05/23, patient developed obtundation, found to have acute on chronic hypercarbic respiratory failure, admitted ICU for BiPAP; on 05/26, transitioned to comfort-focused care and transferred to medical floor on 05/27 History of chronic hypoxic and hypercarbic respiratory failure due to hypoventilation syndrome Patient declined continued use of BiPAP and intubation Spoke with they had a session with hospice, and has no medical questions at present. Family and showcase maker working for safe disposition Continue oxygen and home inhalers. Heartburn likely due to gastritis resolved, continue Prilosec and Maalox. Acute encephalopathy resolved. COPD no acute exacerbation, continue home inhalers, DuoNeb and acetazolamide chronic alkalosis. History of gout continue allopurinol, no acute flare. Hyperlipidemia continue statins. Chronic persistent atrial fibrillation continue Xarelto and metoprolol XL 25 mg daily (home dose 50 mg) stable heart rate Mild acute hypophosphatemia will replete and follow labs. History of chronic heart failure with preserved EF Bumex on hold, no acute exacerbation noted appears euvolemic. DVT prophylaxis on Xarelto. Code status DNR DNI. In my clinical judgment patient require continued inpatient hospitalization for hospice evaluation and safe disposition. Quality Stroke Does the patient have a stroke diagnosis?: No VTE Prior VTE?: No VTE Risk Level:: Medical - moderate - high VTE Device Contraindication: N/A - Device Ordered VTE Drug Contraindication: N/A - Med Ordered
[2024-05-29] MEDS: allopurinoL 100 MG TABLET 200 MG PO (21:03)
[2024-05-30] VITALS (8 sets, daily range): BP systolic 111–145; BP diastolic 58–80; PULSE 80–100; RESP 16–20; TEMP 36.3–37.1; O2SAT 92–96
[2024-05-30] MEDS: Sodium Chloride 0.65 % Nasal 44 ML SPRBTL 1 SPRAY NOSTRIL-B (02:00)
[2024-05-30] MEDS: Acetaminophen 325 MG TABLET 650 MG PO ×4 (02:03→20:06)
[2024-05-30] MEDS: Omeprazole 20 MG CAPSULE.DR PO (05:33)
[2024-05-30] MEDS: Albuterol/Iprat 2.5/0.5MG 3 ML AMPUL.NEB INHALE ×4 (08:07→19:19)
[2024-05-30] MEDS: Tiotropium Bromide 2.5 mcg 1 PUFF/2.5 MCG MIST.INHAL 2 PUFF INHALE (08:07)
[2024-05-30] MEDS: acetaZOLAMIDE 250 MG TABLET PO ×2 (08:20→20:03)
[2024-05-30] MEDS: Atorvastatin Calcium 20 MG TABLET PO (08:20)
[2024-05-30] MEDS: Sodium,Potassium Phosphates POWD.PACK 1 PACKET PO ×2 (08:20→20:04)
[2024-05-30] MEDS: 0.9 % Sodium Chloride Flush 3 ML SYRINGE IVFLUSH ×3 (08:21→20:04)
[2024-05-30] MEDS: Nystatin Powder 15 GM BOTTLE 1 APPL TOPICAL ×2 (08:21→20:13)
--- NOTE | 2024-05-30 12:33 | P.PNIM_ITS ---
Subjective Subjective Date of Service: 05/30/24 Interval History: Being followed for acute on chronic hypoxic and hypercapnic respiratory failure acute encephalopathy. Patient offers no acute complaints denies shortness of breath complain of cough productive of clear to light yellow phlegm, denies fever, no chills, tolerating diet, no diarrhea. Review of Systems All other system reviewed and are negative. Physical Exam 2 Vital Signs: Vital Signs: Last Vital Signs Temp 97.4 F 05/30/24 07:31 Pulse 86 05/30/24 10:55 Resp 18 05/30/24 10:55 BP 125/80 05/30/24 07:31 Pulse Ox 94 05/30/24 07:31 O2 Del Method Nasal Cannula 05/30/24 07:31 O2 Flow Rate 2 05/30/24 07:31 FiO2 24 05/25/24 14:00 Oxygen Flow Rate 3 05/20/24 13:32 BMI result Body Mass Index 37.8 Const: Other: General awake alert x3, in no acute distress. Neck no JVD. CVS regular rate rhythm, Respiratory no respiratory distress, no wheeze, no rhonchi. Gastrointestinal abdomen soft, obese, non tender, bowel sounds audible Neuro non focal Extremities no edema Psych appropriate affect Objective Data Active Medications Acetaminophen (Acetaminophen 325 Mg Tablet) 650 mg PO Q4H PRN PRN Reason: Fever >/= 100, Pain, mild 1-3 Last Admin: 05/30/24 08:26 Dose: 650 mg Documented By: COTEMA Acetazolamide (Acetazolamide 250 Mg Tablet) 250 mg PO BID [facility] Last Admin: 05/30/24 08:20 Dose: 250 mg Documented By: ESTEBAN Al Hydroxide/Mg Hydroxide (Magnesium Hydrox/Alum Hydrox 30 Ml Oral.Susp) 30 ml PO Q6H PRN PRN Reason: heartburn Last Admin: 05/28/24 09:36 Dose: 30 ml Documented By: CHARITO Comments: pt requested for heartburn Albuterol/Ipratropium (Albuterol/Iprat 2.5/0.5mg 3 Ml Ampul.Neb) 3 ml INHALE RQ4H WHILE AWAKE [facility] Last Admin: 05/30/24 10:55 Dose: 3 ml Documented By: BLASCL Allopurinol (Allopurinol 100 Mg Tablet) 200 mg PO BEDTIME [facility] Last Admin: 05/29/24 21:03 Dose: 200 mg Documented By: PAUL Artificial Tears (Artificial Tears 15 Ml Drops) 2 drop EYE-BOTH Q4H PRN PRN Reason: Dry Eyes Atorvastatin Calcium (Atorvastatin Calcium 20 Mg Tablet) 20 mg PO DAILY [facility] Last Admin: 05/30/24 08:20 Dose: 20 mg Documented By: ESTEBAN Docusate Sodium (Docusate Sodium 100 Mg Capsule) 100 mg PO BEDTIME PRN PRN Reason: Constipation Glycopyrrolate (Glycopyrrolate 0.2 Mg/Ml Vial) 0.2 mg IVPUSH Q6H PRN PRN Reason: Respiratory secretions Lorazepam (Lorazepam 2 Mg/Ml Vial) 0.5 mg IVPUSH Q4H PRN PRN Reason: Myoclonic twitching/anxiety Morphine Sulfate (Morphine Sulfate Immed Release 15 Mg Tablet) 15 mg PO Q4H PRN PRN Reason: Pain, Severe (Pain Scale 7-10) Nystatin (Nystatin Powder 15 Gm Bottle) 1 appl TOPICAL BID [facility]; Protocol Last Admin: 05/30/24 08:21 Dose: 1 appl Documented By: ESTEBAN Omeprazole (Omeprazole 20 Mg Capsule.Dr) 20 mg PO DAILY@0630 [facility] Last Admin: 05/30/24 05:33 Dose: 20 mg Documented By: PAUL Ondansetron HCl (Ondansetron Hcl 4 Mg/2 Ml Vial) 4 mg IVPUSH Q4H PRN PRN Reason: Nausea and Vomiting Oxycodone HCl (Oxycodone Hcl Immed Release 5 Mg Tablet) 5 mg PO Q4H PRN PRN Reason: Pain, Moderate(Pain Scale 4-6) Last Admin: 05/26/24 17:23 Dose: 5 mg Documented By: REBA Potassium Phos/Sodium Phos (Sodium,Potassium Phosphates Powd.Pack) 1 packet PO BID [facility] Stop: 05/30/24 21:01 Last Admin: 05/30/24 08:20 Dose: 1 packet Documented By: ESTEBAN Rivaroxaban (Rivaroxaban 20 Mg Tablet) 20 mg PO DAILY@1730 [facility] Last Admin: 05/28/24 16:12 Dose: 20 mg Documented By: CHARITO Senna (Sennosides 8.6 Mg Tablet) 8.6 mg PO BEDTIME PRN PRN Reason: Constipation Sodium Chloride (0.9 % Sodium Chloride Flush 3 Ml Syringe) 3 ml IVFLUSH QSHIFT [facility] Last Admin: 05/30/24 08:21 Dose: 3 ml Documented By: COTEMA Sodium Chloride (Sodium Chloride 0.65 % Nasal 44 Ml Sprbtl) 1 spray NOSTRIL-B Q1H PRN PRN Reason: Dryness Last Admin: 05/30/24 02:00 Dose: 1 spray Documented By: CASTILM Tiotropium [place] (Tiotropium [place] 2.5 Mcg 1 Puff/2.5 Mcg Mist.Inhal) 2 puff INHALE RDAILY [facility] Last Admin: 05/30/24 08:07 Dose: 2 puff Documented By: KADEN Labs 05/26/24 05:22 05/26/24 05:22 Assessment and Plan (1) Respiratory failure with hypoxia and hypercapnia: Status: Acute Plan 78 Y M with heart failure, atrial fibrillation on rivaroxaban, s/p pacemaker, COPD c/b chronic mixed respiratory failure, on 4 L NC baseline, and recent COPD exacerbation on 05/12, who re-presented to the ED on 05/20 w/ visual and auditory hallucinations and intermittent encephalopathy, found to be hypothermic, though grossly unrevealing work-up, admitted medicine for continued management, w/ some interval improvement of encephalopathy; on 05/23, patient developed obtundation, found to have acute on chronic hypercarbic respiratory failure, admitted ICU for BiPAP; on 05/26, transitioned to comfort-focused care and transferred to medical floor on 05/27 History of chronic hypoxic and hypercarbic respiratory failure due to hypoventilation syndrome/pneumonia Patient declined continued use of BiPAP and intubation Finished course of antibiotic for pneumonia Continue DuoNeb will change to q.i.d. and Spiriva Family and case aide working for safe disposition Continue oxygen to keep finger oximetry just above 90% and home inhalers. Recommend deep breathing exercises with pursed lip technique Q 2 hours while awake. Spoke with daughter and sons and explained them about hospice care. Family met with hospice and agreeable for hospice care. Heartburn likely due to gastritis resolved, continue Prilosec and Maalox. Acute encephalopathy resolved was multifactorial likely due to infection, hypercarbia. COPD no acute exacerbation, continue home inhalers, DuoNeb and acetazolamide chronic alkalosis. History of gout continue allopurinol, no acute flare. Hyperlipidemia continue statins. Chronic persistent atrial fibrillation continue Xarelto and metoprolol XL 25 mg daily (home dose 50 mg) stable heart rate Mild acute hypophosphatemia will replete and follow labs. History of chronic heart failure with preserved EF Bumex on hold, no acute exacerbation noted, appears euvolemic. DVT prophylaxis on Xarelto. Code status DNR DNI. In my clinical judgment patient require continued inpatient hospitalization for hospice evaluation and safe disposition. Quality Stroke Does the patient have a stroke diagnosis?: No VTE Prior VTE?: No VTE Risk Level:: Medical - moderate - high VTE Device Contraindication: N/A - Device Ordered VTE Drug Contraindication: N/A - Med Ordered
[2024-05-30] MEDS: polyethylene glycoL 3350 17 GM POWD.PACK PO (17:13)
[2024-05-30] MEDS: diphenhydrAMINE HCL 25 MG CAPSULE PO (18:43)
[2024-05-30] MEDS: allopurinoL 100 MG TABLET 200 MG PO (20:04)
[2024-05-31] VITALS (8 sets, daily range): BP systolic 124–136; BP diastolic 68–94; PULSE 78–96; RESP 15–20; TEMP 36–36.8; O2SAT 92–96
[2024-05-31] MEDS: Omeprazole 20 MG CAPSULE.DR PO (05:52)
[2024-05-31] MEDS: Tiotropium Bromide 2.5 mcg 1 PUFF/2.5 MCG MIST.INHAL 2 PUFF INHALE (07:39)
[2024-05-31] MEDS: Albuterol/Iprat 2.5/0.5MG 3 ML AMPUL.NEB INHALE ×4 (07:40→19:51)
[2024-05-31] MEDS: acetaZOLAMIDE 250 MG TABLET PO ×2 (08:25→20:26)
[2024-05-31] MEDS: 0.9 % Sodium Chloride Flush 3 ML SYRINGE IVFLUSH ×3 (08:26→22:22)
[2024-05-31] MEDS: Nystatin Powder 15 GM BOTTLE 1 APPL TOPICAL ×2 (08:26→20:26)
[2024-05-31] MEDS: polyethylene glycoL 3350 17 GM POWD.PACK PO (08:26)
[2024-05-31] MEDS: Atorvastatin Calcium 20 MG TABLET PO (08:26)
--- NOTE | 2024-05-31 10:13 | MHC.CLN ---
F/U DIET=REGULAR, GROUND WITH NECTAR THICK LIQUIDS. ACCEPTING PO. SKIN WITH DTI TO [facility]. PLAN OF CARE IS TO TRANSITION TO HOSPICE SERVICE. RD TO PROVIDE SUPPORT NEEDED.
--- NOTE | 2024-05-31 10:36 | MHC.CM.PN ---
Addendum entered by Tish Waddell RN 05/31/24 15:11: [facility] RN met w/ patient at bedside. Patient is appropriate for their program. However, still not agreeable. Family will meet with patient this evening and CM will follow up tomorrow. Addendum entered by Tish Waddell RN 05/31/24 12:43: CM spoke w/ who is unable to care for patient at home. One son nearby, but working daytime caregiver and not available to care for patient. is in agreement w/ plan for [facility]. [facility]uli Flores RN will eval patient at 2pm. Addendum entered by Tish Waddell RN 05/31/24 11:20: Patient states he would like to return home. CM LM for to discuss. Addendum entered by Tish Waddell RN 05/31/24 10:47: [facility] requesting [facility]. MD aware. Original Note: Per MD rounds patient medically cleared to dc on hospice. Awaiting eval from [facility]. Sandra Bowers of [facility] will coordinate w/ to complete this today. If accepted, patient can xfer Friday. CM will continue to follow.
--- NOTE | 2024-05-31 16:58 | HO.PM.IMPN ---
Subjective Subjective Date of Service: 05/31/24 Interval History: Wishes to be discharged home, complaining of lower back discomfort, feels bed is uncomfortable. Refusing to go to [facility] , wants to go home , upset at . is unable to care for him at home. Denies shortness of breath, no headache, no dizziness, no fevers, no chills, no acute issues overnight oxygenation is stable on 2 L. Review of Systems All other system reviewed and are negative Physical Exam Vital Signs: Vital Signs: Last Vital Signs Temp 97.2 F 05/31/24 15:19 Pulse 86 05/31/24 15:22 Resp 16 05/31/24 15:22 BP 136/71 05/31/24 15:19 Pulse Ox 92 05/31/24 15:19 O2 Del Method Nasal Cannula 05/31/24 15:19 O2 Flow Rate 1.0 05/31/24 15:19 FiO2 24 05/25/24 14:00 Oxygen Flow Rate 3 05/20/24 13:32 BMI result Body Mass Index 37.8 Const: Other: General awake alert x3, in no acute distress. Neck no JVD. CVS regular rate rhythm, Respiratory no respiratory distress, no wheeze, no rhonchi. Gastrointestinal abdomen soft, obese, non tender, bowel sounds audible Neuro non focal Extremities no edema Psych appropriate affect Objective Data Active Medications Acetaminophen (Acetaminophen 325 Mg Tablet) 650 mg PO Q4H PRN PRN Reason: Fever >/= 100, Pain, mild 1-3 Last Admin: 05/30/24 20:06 Dose: 650 mg Documented By: ARSALAN Acetazolamide (Acetazolamide 250 Mg Tablet) 250 mg PO BID [facility] Last Admin: 05/31/24 08:25 Dose: 250 mg Documented By: SALIMA Al Hydroxide/Mg Hydroxide (Magnesium Hydrox/Alum Hydrox 30 Ml Oral.Susp) 30 ml PO Q6H PRN PRN Reason: heartburn Last Admin: 05/28/24 09:36 Dose: 30 ml Documented By: CHARITO Comments: pt requested for heartburn Albuterol/Ipratropium (Albuterol/Iprat 2.5/0.5mg 3 Ml Ampul.Neb) 3 ml INHALE RQID [facility] Last Admin: 05/31/24 15:21 Dose: 3 ml Documented By: SAÚL Allopurinol (Allopurinol 100 Mg Tablet) 200 mg PO BEDTIME [facility] Last Admin: 05/30/24 20:04 Dose: 200 mg Documented By: ARSALAN Artificial Tears (Artificial Tears 15 Ml Drops) 2 drop EYE-BOTH Q4H PRN PRN Reason: Dry Eyes Atorvastatin Calcium (Atorvastatin Calcium 20 Mg Tablet) 20 mg PO DAILY [facility] Last Admin: 05/31/24 08:26 Dose: 20 mg Documented By: SALIMA Diphenhydramine HCl (Diphenhydramine Hcl 25 Mg Capsule) 25 mg PO Q6H PRN PRN Reason: itching Last Admin: 05/30/24 18:43 Dose: 25 mg Documented By: COTEMA Docusate Sodium (Docusate Sodium 100 Mg Capsule) 100 mg PO BEDTIME PRN PRN Reason: Constipation Glycopyrrolate (Glycopyrrolate 0.2 Mg/Ml Vial) 0.2 mg IVPUSH Q6H PRN PRN Reason: Respiratory secretions Nystatin (Nystatin Powder 15 Gm Bottle) 1 appl TOPICAL BID [facility]; Protocol Last Admin: 05/31/24 08:26 Dose: 1 appl Documented By: SALIMA Omeprazole (Omeprazole 20 Mg Capsule.Dr) 20 mg PO DAILY@0630 [facility] Last Admin: 05/31/24 05:52 Dose: 20 mg Documented By: ARSALAN Ondansetron HCl (Ondansetron Hcl 4 Mg/2 Ml Vial) 4 mg IVPUSH Q4H PRN PRN Reason: Nausea and Vomiting Polyethylene Glycol (Polyethylene Glycol 3350 17 Gm Powd.Pack) 17 gm PO DAILY [facility] Last Admin: 05/31/24 08:26 Dose: 17 gm Documented By: SALIMA Rivaroxaban (Rivaroxaban 20 Mg Tablet) 20 mg PO DAILY@1730 [facility] Last Admin: 05/28/24 16:12 Dose: 20 mg Documented By: CHARITO Senna (Sennosides 8.6 Mg Tablet) 8.6 mg PO BEDTIME PRN PRN Reason: Constipation Sodium Chloride (0.9 % Sodium Chloride Flush 3 Ml Syringe) 3 ml IVFLUSH QSHIFT [facility] Last Admin: 05/31/24 08:26 Dose: 3 ml Documented By: HO.MCDONOH Sodium Chloride (Sodium Chloride 0.65 % Nasal 44 Ml Sprbtl) 1 spray NOSTRIL-B Q1H PRN PRN Reason: Dryness Last Admin: 05/30/24 02:00 Dose: 1 spray Documented By: PAUL Tiotropium [place] (Tiotropium [place] 2.5 Mcg 1 Puff/2.5 Mcg Mist.Inhal) 2 puff INHALE RDAILY [facility] Last Admin: 05/31/24 07:39 Dose: 2 puff Documented By: SAÚL Labs 05/26/24 05:22 05/26/24 05:22 Assessment and Plan (1) Pneumonia: Status: Acute (2) Acute metabolic encephalopathy: Status: Acute Plan 78 Y M with heart failure, atrial fibrillation on rivaroxaban, s/p pacemaker, COPD c/b chronic mixed respiratory failure, on 4 L NC baseline, and recent COPD exacerbation on 05/12, who re-presented to the ED on 05/20 w/ visual and auditory hallucinations and intermittent encephalopathy, found to be hypothermic, though grossly unrevealing work-up, admitted medicine for continued management, w/ some interval improvement of encephalopathy; on 05/23, patient developed obtundation, found to have acute on chronic hypercarbic respiratory failure, admitted ICU for BiPAP; on 05/26, transitioned to comfort-focused care and transferred to medical floor on 05/27 History of chronic hypoxic and hypercarbic respiratory failure due to hypoventilation syndrome/pneumonia Patient declined continued use of BiPAP and intubation Finished course of antibiotic for pneumonia Continue DuoNeb q.i.d. and Spiriva Continue oxygen to keep finger oximetry just above 90% and home inhalers. Recommend deep breathing exercises with pursed lip technique Q 2 hours while awake. daughter and sons spoke with hospice and are agreeable for hospice care. MOL[facility] form signed Family unable to provide care at home, therefore arranged for hospice care at [facility] if patient accepted he can be discharged on Friday However patient is declining to go there. Family will meet with patient this evening. Heartburn likely due to gastritis resolved, continue Prilosec and Maalox. Acute encephalopathy resolved was multifactorial likely due to infection, hypercarbia. COPD no acute exacerbation, continue home inhalers, DuoNeb and acetazolamide for chronic alkalosis. History of gout continue allopurinol, no acute flare. Hyperlipidemia continue statins. Chronic persistent atrial fibrillation continue Xarelto and metoprolol XL 25 mg daily (home dose 50 mg) stable heart rate Mild acute hypophosphatemia repleted History of chronic heart failure with preserved EF appears euvolemic will hold Bumex DVT prophylaxis on Xarelto. Code status DNR DNI. In my clinical judgment patient require continued inpatient hospitalization for safe disposition. Quality Stroke Does the patient have a stroke diagnosis?: No VTE Prior VTE?: No VTE Risk Level:: Medical - moderate - high VTE Device Contraindication: N/A - Device Ordered VTE Drug Contraindication: N/A - Med Ordered
[2024-05-31] MEDS: Acetaminophen 325 MG TABLET 650 MG PO (17:13)
[2024-05-31] MEDS: Rivaroxaban 20 MG TABLET PO (17:13)
[2024-05-31] MEDS: allopurinoL 100 MG TABLET 200 MG PO (20:26)
[2024-05-31] MEDS: Sodium Chloride 0.65 % Nasal 44 ML SPRBTL 1 SPRAY NOSTRIL-B (20:29)
[2024-06-01] VITALS (8 sets, daily range): BP systolic 98–139; BP diastolic 57–75; PULSE 70–110; RESP 18–19; TEMP 36.1–36.8; O2SAT 93–99
[2024-06-01] MEDS: Omeprazole 20 MG CAPSULE.DR PO (05:15)
[2024-06-01] MEDS: diphenhydrAMINE HCL 25 MG CAPSULE PO ×2 (05:15→18:29)
[2024-06-01] MEDS: Acetaminophen 325 MG TABLET 650 MG PO ×2 (08:01→19:49)
[2024-06-01] MEDS: acetaZOLAMIDE 250 MG TABLET PO ×2 (08:01→19:50)
[2024-06-01] MEDS: Atorvastatin Calcium 20 MG TABLET PO (08:01)
[2024-06-01] MEDS: 0.9 % Sodium Chloride Flush 3 ML SYRINGE IVFLUSH ×3 (08:02→20:00)
[2024-06-01] MEDS: Nystatin Powder 15 GM BOTTLE 1 APPL TOPICAL ×2 (08:08→19:38)
[2024-06-01] MEDS: Albuterol/Iprat 2.5/0.5MG 3 ML AMPUL.NEB INHALE ×3 (08:29→19:39)
[2024-06-01] MEDS: Tiotropium Bromide 2.5 mcg 1 PUFF/2.5 MCG MIST.INHAL 2 PUFF INHALE (08:29)
--- NOTE | 2024-06-01 13:33 | P.PNIM_ITS ---
Subjective Subjective Date of Service: 06/01/24 Interval History: denies dyspnea or pain as long as he doesn't move now agreeable to hospice at [facility] Review of Systems Review of Systems: Yes all other systems are reviewed and are negative Physical Exam 2 Vital Signs: Vital Signs: Last Vital Signs Temp 98.2 F 06/01/24 07:22 Pulse 94 06/01/24 12:40 Resp 18 06/01/24 12:40 BP 125/75 06/01/24 08:11 Pulse Ox 97 06/01/24 08:11 O2 Del Method Nasal Cannula 06/01/24 07:22 O2 Flow Rate 2 06/01/24 07:22 FiO2 24 05/25/24 14:00 Oxygen Flow Rate 3 05/20/24 13:32 BMI result Body Mass Index 37.8 Gen: chronically ill HEENT: sclera anicteric, moist mucus membranes Neck: supple Lungs: diminished Heart: regular rate and rhythm, no murmurs Abd: soft, non-tender, non-distended Ext: no edema Skin: warm/well-perfused Neuro: alert and oriented x3, no focal findings Psych: appropriate affect Objective Data Active Medications Acetaminophen (Acetaminophen 325 Mg Tablet) 650 mg PO Q4H PRN PRN Reason: Fever >/= 100, Pain, mild 1-3 Last Admin: 06/01/24 08:01 Dose: 650 mg Documented By: SALIMA Acetazolamide (Acetazolamide 250 Mg Tablet) 250 mg PO BID [facility] Last Admin: 06/01/24 08:01 Dose: 250 mg Documented By: SALIMA Al Hydroxide/Mg Hydroxide (Magnesium Hydrox/Alum Hydrox 30 Ml Oral.Susp) 30 ml PO Q6H PRN PRN Reason: heartburn Last Admin: 05/28/24 09:36 Dose: 30 ml Documented By: CHARITO Comments: pt requested for heartburn Albuterol/Ipratropium (Albuterol/Iprat 2.5/0.5mg 3 Ml Ampul.Neb) 3 ml INHALE RQID [facility] Last Admin: 06/01/24 12:39 Dose: 3 ml Documented By: AMPARO Allopurinol (Allopurinol 100 Mg Tablet) 200 mg PO BEDTIME [facility] Last Admin: 05/31/24 20:26 Dose: 200 mg Documented By: HO.ODRISM Artificial Tears (Artificial Tears 15 Ml Drops) 2 drop EYE-BOTH Q4H PRN PRN Reason: Dry Eyes Atorvastatin Calcium (Atorvastatin Calcium 20 Mg Tablet) 20 mg PO DAILY [facility] Last Admin: 06/01/24 08:01 Dose: 20 mg Documented By: SALIMA Diphenhydramine HCl (Diphenhydramine Hcl 25 Mg Capsule) 25 mg PO Q6H PRN PRN Reason: itching Last Admin: 06/01/24 05:15 Dose: 25 mg Documented By: GRIFFINRISNorma Docusate Sodium (Docusate Sodium 100 Mg Capsule) 100 mg PO BEDTIME PRN PRN Reason: Constipation Glycopyrrolate (Glycopyrrolate 0.2 Mg/Ml Vial) 0.2 mg IVPUSH Q6H PRN PRN Reason: Respiratory secretions Nystatin (Nystatin Powder 15 Gm Bottle) 1 appl TOPICAL BID [facility]; Protocol Last Admin: 06/01/24 08:08 Dose: 1 appl Documented By: SALIMA Omeprazole (Omeprazole 20 Mg Capsule.) 20 mg PO DAILY@0630 [facility] Last Admin: 06/01/24 05:15 Dose: 20 mg Documented By: ARSALAN Ondansetron HCl (Ondansetron Hcl 4 Mg/2 Ml Vial) 4 mg IVPUSH Q4H PRN PRN Reason: Nausea and Vomiting Polyethylene Glycol (Polyethylene Glycol 3350 17 Gm Powd.Pack) 17 gm PO DAILY [facility] Last Admin: 06/01/24 08:02 Dose: Not Given Documented By: SALIMA Non-Admin Reason: Patient Refused Rivaroxaban (Rivaroxaban 20 Mg Tablet) 20 mg PO DAILY@1730 [facility] Last Admin: 05/31/24 17:13 Dose: 20 mg Documented By: SALIMA Senna (Sennosides 8.6 Mg Tablet) 8.6 mg PO BEDTIME PRN PRN Reason: Constipation Sodium Chloride (0.9 % Sodium Chloride Flush 3 Ml Syringe) 3 ml IVFLUSH QSHIFT [facility] Last Admin: 06/01/24 08:02 Dose: 3 ml Documented By: SALIMA Sodium Chloride (Sodium Chloride 0.65 % Nasal 44 Ml Sprbtl) 1 spray NOSTRIL-B Q1H PRN PRN Reason: Dryness Last Admin: 05/31/24 20:29 Dose: 1 spray Documented By: GRIFFINRISM Tiotropium [place] (Tiotropium [place] 2.5 Mcg 1 Puff/2.5 Mcg Mist.Inhal) 2 puff INHALE LENCHO [facility] Last Admin: 06/01/24 08:29 Dose: 2 puff Documented By: AMPARO Labs 05/26/24 05:22 05/26/24 05:22 Assessment and Plan (1) Pneumonia: Status: Acute (2) Acute metabolic encephalopathy: Status: Acute Plan d13 78yo M with CHF, AF on rivaroxaban + PPM, COPD with mixed hypoxic/hypercarbic resp failure [on 4L O2 NC at baseline] with recent COPD exacerbation presented with visual/auditory hallucinations, admitted for encephalopathy. Also found to be hypothermic. Initially admitted to hospitalist service but then developed obtundation due to acute/chronic hypercarbia. Admitted to ICU for BiPAP. Transitioned to palliative care 05/26, transferred to medical floor 05/27, now awaiting hospice placement. acute/chronic hypoxic/hypercarbic resp failure due to COPD and PNA - Pt declined continued use of BiPAP and wished not to be intubated - Finished course of antibiotics - Continue meds, nebs, inhalers - Per family discussion transitioning to hospice care; family unable to provide care at home so arranging for transfer to [facility] GERD/gastritis - continue PPI acute metabolic encephalopathy - resolved after treatment above hx gout - allopurinol HLD - statin chronic AF - Xarelto, metoprolol succinate chronic HFpEF - hold Bumex; appears euvolemic VTE ppx - rivaroxaban dispo - plan hospice facility In my clinical judgment, the patient requires continued inpatient hospitalization for the following reasons: safe disposition Total time managing care of this patient today: 35 minutes. Quality Stroke Does the patient have a stroke diagnosis?: No VTE Prior VTE?: No VTE Risk Level:: Medical - moderate - high VTE Device Contraindication: N/A - Device Ordered VTE Drug Contraindication: N/A - Med Ordered
--- NOTE | 2024-06-01 15:12 | MHC.CM.PN ---
Addendum entered by Raya Diaz 06/01/24 15:30: FINAL IMM DELIVERED. WHITE COPY LEFT AT BEDSIDE, SPOUSE AWARE. Original Note: CM SPOKE WITH PT/ , BOTH AGREEABLE TO HOSPICE AT [facility]. PT HAS BEEN ACCEPTED THERE AND [facility] HAS DONE INFORMATIONAL WITH PT/FAMILY. [facility] HAS ACCEPTED WELL. EQUIPMENT NEEDS OBTAINED BY [facility] AND WILL BE DELIVERED BEFORE DC TOMORROW AT 10 AM. BLS TRANSPORT HAS BEEN BOOKED FOR 10 AM 06/02/24 VIA MIN. PROVIDER MADE AWARE. AWARE.
[2024-06-01] MEDS: Rivaroxaban 20 MG TABLET PO (17:47)
[2024-06-01] MEDS: Docusate Sodium 100 MG CAPSULE PO (19:49)
[2024-06-01] MEDS: allopurinoL 100 MG TABLET 200 MG PO (19:50)
[2024-06-02 03:46] VITALS: BP 112/64; PULSE 96; RESP 19; TEMP 36; O2SAT 93
[2024-06-02] MEDS: Omeprazole 20 MG CAPSULE.DR PO (06:43)
[2024-06-02 07:22] VITALS: BP 124/61; PULSE 70; RESP 18; TEMP 36.4; O2SAT 96
[2024-06-02] MEDS: 0.9 % Sodium Chloride Flush 3 ML SYRINGE IVFLUSH (08:16)
[2024-06-02] MEDS: Nystatin Powder 15 GM BOTTLE 1 APPL TOPICAL (08:16)
[2024-06-02] MEDS: Atorvastatin Calcium 20 MG TABLET PO (08:16)
[2024-06-02] MEDS: polyethylene glycoL 3350 17 GM POWD.PACK PO (08:16)
[2024-06-02] MEDS: acetaZOLAMIDE 250 MG TABLET PO (08:16)
--- NOTE | 2024-06-02 09:45 | PM.DS ---
DS: Providers Provider Date of Service: 06/02/24 Date of admission: 05/20/24 18:41 Primary care physician: Jenna Agee MD Consults: 05/26/24 15:35 Consult to Case Management Routine Comment: Consult to Hospice Routine Comment: 05/28/24 11:11 Consult to Wound Care Routine Reason for consultation: redness,skin excoriation bilateral groin,scrotum,under abdominal folds DS: Diagnosis Discharge Diagnosis (1) Pneumonia: Status: Acute (2) Acute metabolic encephalopathy: Status: Acute (3) Acute on chronic respiratory failure with hypoxia and hypercapnia: Status: Acute (4) Hypoventilation syndrome: Status: Acute (5) COPD (chronic obstructive pulmonary disease): Status: Acute DS: Summary Hospital Course Hospital Course: From the history and physical by the admitting hospitalist, ERIK Okeefe, 05/20/24: Pt is a 78-year-old male with a PMH significant for HFpEF, COPD, hypoventilation syndrome, chronic respiratory failure with hypoxia and hypercapnia chronically on 4 L home O2, chronic AFib with slow ventricular response on Xarelto, and s/p pacemaker in place who presents to the ED with altered mental status and hallucinations x1 week. Patient initially presented to the ED 1 week ago on 05/12 for increasing shortness a breath and difficulty breathing. Was evaluated for possible inpatient admission for COPD exacerbation setting of possible pneumonia, though patient ultimately did not want to be admitted and was discharged home on prednisone, cefuroxime 500 mg b.i.d. x7 days, and azithromycin x5 days. Reports completed full course of antibiotics and steroids. Patient himself is alert and oriented x3, though occasionally makes nonsensical comments were speaks about people who were not in the room. Called patient's who states that he has been experiencing hallucinations for the past week that appear to be worsening with each day. For example, has been seeing people that are not there and believes that the TV is talking to him. Has had reduced p.o. intake, particularly of food. At times hands have been shaking and has had reduced strength. reports patient's strength has diminished especially in the past 6 months. Previously ambulated with walker in the home, though has not done this for the past few months. Also states patient has not had bowel movement for past week. Chronic SOB and cough appear at baseline. No reported nausea, vomiting, or pain. Patient himself denies any acute medical complaints. In the ED pt was hypothermic as low as 94.8, bradycardic at 53, and was soft BP as low as 113/57. Labs were significant for leukocytosis 16.8, stable anemia of 10.0/30.2, sodium 128, chloride 75, bicarb 48, anion gap 9, BUN 26, alk-phos 132, CRP 3.21 and albumin 3.2. TSH WNL. BNP 116. Troponin 17.4 (similar to previous). VBG with pH 7.49, pCO2 72, and bicarb 55, similar to previous. Tested negative for influenza a and B, RSV, and COVID. CXR redemonstrated bilateral patchy airspace opacities and central vascular congestion, similar to previous. EKG demonstrated AFib with slow ventricular response and frequent ventricular paced complexes. No evidence of significant ST elevations or depressions. Pt was treated with DuoNebs. Pt will be admitted to the hospital for treatment and further evaluation of acute metabolic encephalopathy with hypothermia of unclear etiology. 78yo M with CHF, AF on rivaroxaban + PPM, COPD with mixed hypoxic/hypercarbic resp failure [on 4L O2 NC at baseline] with recent COPD exacerbation, and hypoventilation syndrome who presented with visual/auditory hallucinations and was initially admitted to the hospitalist service for encephalopathy. Also found to be hypothermic. Unfortunately, he developed obtundation due to acute/chronic hypercarbia on 05/23/24 and was transferred to the ICU for BiPAP support. After discussion with him and his family, he was transitioned to palliative measures 05/26 and transferred to the medical floor 05/27 while hospice placement was sought. He declined continued used of BiPAP and affirmed that he did not want to be intubated. He was treated with a course of antibiotics for pneumonia. As his family was unable to provide 14/04 care for him at home, hospice placement at [facility] was arranged. Time Attestation Discharge Coordination Time (in mins): 45 Quality: Safe Use of Opioids Does Pt have an Active Cancer Diagnosis on the Problem List?: No Quality: Stroke Does the patient have a stroke diagnosis?: No Physical Exam Vital Signs: Vital Signs: Last Vital Signs Temp 97.5 F 06/02/24 07:22 Pulse 70 06/02/24 07:22 Resp 18 06/02/24 07:22 BP 124/61 06/02/24 07:22 Pulse Ox 96 06/02/24 07:22 O2 Del Method Nasal Cannula 06/02/24 07:22 O2 Flow Rate 2 06/02/24 07:22 FiO2 24 05/25/24 14:00 Oxygen Flow Rate 3 05/20/24 13:32 BMI result Body Mass Index 37.8 Gen: chronically ill, weak HEENT: sclera anicteric, moist mucus membranes Neck: supple Lungs: diminished Heart: regular rate and rhythm, no murmurs Abd: soft, non-tender, non-distended Ext: no edema Skin: warm/well-perfused Neuro: alert and oriented x3, no focal findings Psych: appropriate affect DS: Data Data Completed and Pending Completed studies during hospitalization [Text1]: Laboratory Results WBC 19.3 X10*3/uL (4.8-10.8) H 05/26/24 05:22 RBC 2.76 X10*6/uL (4.60-5.80) L 05/26/24 05:22 Hgb 8.6 g/dl (14.0-18.0) L 05/26/24 05:22 Hct 26.2 % (42.0-52.0) L 05/26/24 05:22 MCV 94.9 fL (80.0-98.0) 05/26/24 05:22 MCH 31.2 pg (27.0-33.0) 05/26/24 05:22 MCHC 32.8 g/dl (31.0-36.0) 05/26/24 05:22 RDW 17.9 % (11.0-16.0) H 05/26/24 05:22 Plt Count 168 X10*3/uL (160-400) 05/26/24 05:22 MPV 10.6 fL (9.4-12.4) 05/26/24 05:22 Immature Gran % (Auto) 0.9 % (0.0-0.4) H 05/26/24 05:22 Neut % (Auto) 89.5 % (45-73) H 05/26/24 05:22 Lymph % (Auto) 4.3 % (20-40) L 05/26/24 05:22 [place] % (Auto) 5.1 % (2-11) 05/26/24 05:22 Eos % (Auto) 0.0 % (0-4) 05/26/24 05:22 Baso % (Auto) 0.2 % (0-2) 05/26/24 05:22 Lymph # (Auto) 0.8 X10*3/uL (1.2-4.9) L 05/26/24 05:22 [place] # (Auto) 1.0 X10*3/uL (0.1-1.2) 05/26/24 05:22 Eos # (Auto) 0.0 X10*3/uL (0.0-0.4) 05/26/24 05:22 Baso # (Auto) 0.0 X10*3/uL (0.0-0.2) 05/26/24 05:22 Abs Immat Gran (auto) 0.18 X10*3/uL (0.00-0.03) H 05/26/24 05:22 Absolute Neuts (auto) 17.2 x10*3/uL (2.0-8.3) H 05/26/24 05:22 Absolute Nucleated RBC 0.000 X10*3/uL (0.0-0.012) 05/26/24 05:22 Nucleated RBC % (auto) 0.0 /100WBC (0.0-0.2) 05/26/24 05:22 Smear Tech's Comments VERIFIED 05/25/24 05:10 Hold Purple Top SEE NOTE 05/23/24 06:43 O2 Saturation 99.0 % 05/23/24 16:41 ABG pH at Pt Temp 7.35 (7.35-7.45) 05/23/24 16:41 ABG pCO2 at Pt Temp 82 mmHg (32-45) H* 05/23/24 16:41 ABG pO2 at Pt Temp 136 mmHg (83-108) H 05/23/24 16:41 ABG HCO3 46 mmol/L (22-26) H 05/23/24 16:41 ABG Base Excess (Actual) 17.3 mmol/L 05/23/24 16:41 VBG pH 7.55 (7.32-7.43) H 05/26/24 05:18 VBG pCO2 48 mmHg 05/26/24 05:18 VBG pO2 39 mmHg 05/26/24 05:18 VBG HCO3 42 mmol/L (22-26) H 05/26/24 05:18 VBG O2 Saturation 72.0 % 05/26/24 05:18 VBG Base Excess 18.5 mmol/L 05/26/24 05:18 Sodium 135 mmol/L (135-145) 05/26/24 05:22 Potassium 4.5 mmol/L (3.3-5.1) D 05/26/24 05:22 Chloride 92 mmol/L (96-108) L 05/26/24 05:22 Carbon Dioxide 37 mmol/L (22-29) H 05/26/24 05:22 Anion Gap 11 (12-20) L 05/26/24 05:22 BUN 21 mg/dL (9-16) H 05/26/24 05:22 Creatinine 0.92 mg/dL (0.5-1.4) 05/26/24 05:22 Estim Creat Clear Calc 83.1 05/26/24 05:22 Estimated GFR > 60 05/26/24 05:22 Random Glucose 138 mg/dL (60-115) H 05/26/24 05:22 Lactic Acid 1.4 mmol/L (0.5-2.0) 05/24/24 08:33 Calcium 9.1 mg/dL (8.4-10.2) 05/26/24 05:22 Phosphorus 2.2 mg/dL (2.7-4.5) L 05/26/24 05:22 Magnesium 2.1 mg/dL (1.6-2.6) 05/26/24 05:22 Total Bilirubin 0.9 mg/dL (0.0-1.0) 05/20/24 15:54 Direct Bilirubin 0.4 mg/dL (0.0-0.5) 05/20/24 15:54 AST 25 U/L (5-37) 05/20/24 15:54 ALT 15 U/L (0-40) 05/20/24 15:54 Alkaline Phosphatase 132 U/L (39-117) H 05/20/24 15:54 Ammonia 28 umol/L (13-55) 05/20/24 19:11 Troponin I High Sens 17.4 ng/L (<3.5-35.0) D 05/20/24 15:00 C-Reactive Protein 3.21 mg/dL (< or = 0.50) H 05/20/24 15:54 B-Natriuretic Peptide 185 pg/mL (<100) H 05/23/24 18:09 Total Protein 6.8 g/dL (6.5-8.0) 05/20/24 15:54 Albumin 2.7 g/dL (3.5-5.0) L 05/25/24 05:10 TSH 2.05 uIU/mL (0.32-4.0) 05/20/24 15:00 Random Cortisol 18.0 ug/dL 05/20/24 14:59 Urine Color Yellow 05/20/24 17:47 Urine Appearance Clear 05/20/24 17:47 Urine pH 8.0 (5.0-9.0) 05/20/24 17:47 Ur Specific [place] 1.010 (1.005-1.025) 05/20/24 17:47 Urine Protein 30 (1+) mg/dL (Neg-Trace) H 05/20/24 17:47 Urine Glucose (UA) Negative mg/dL (Negative) 05/20/24 17:47 Urine Ketones Negative mg/dL (Negative) 05/20/24 17:47 Urine Blood Negative (Negative) 05/20/24 17:47 Urine Nitrite Negative (Negative) 05/20/24 17:47 Ur Leukocyte Esterase Negative (Negative) 05/20/24 17:47 Urine RBC 0-2 /HPF (0-2) 05/20/24 17:47 Urine WBC 0-5 /HPF (0-5) 05/20/24 17:47 Ur Squamous Epith Cells 0-2 /HPF (0-2) 05/20/24 17:47 Urine Bacteria None Seen (None Seen) 05/20/24 17:47 Hyaline Casts 0-2 /LPF (0-2) 05/20/24 17:47 Random Vancomycin 21.4 mcg/mL (15-20) H 05/24/24 08:33 Urine Opiates Screen Not Detected (Not Detect) 05/20/24 17:12 Ur Buprenorphine Scrn Not Detected ng/mL (Not Detect) 05/20/24 17:12 Ur Oxycodone Screen Not Detected ng/mL (Not Detect) 05/20/24 17:12 Urine Methadone Screen Not Detected ng/mL (Not Detect) 05/20/24 17:12 Urine Fentanyl Screen Not Detected (Not Detect) 05/20/24 17:12 Ur Barbiturates Screen Not Detected (Not Detect) 05/20/24 17:12 Ur Phencyclidine Scrn Not Detected (Not Detect) 05/20/24 17:12 Ur Amphetamines Screen Not Detected (Not Detect) 05/20/24 17:12 U Benzodiazepines Scrn Not Detected (Not Detect) 05/20/24 17:12 Urine Cocaine Screen Not Detected (Not Detect) 05/20/24 17:12 U Marijuana (THC) Screen Not Detected (Not Detect) 05/20/24 17:12 Ethyl Alcohol < 10 mg/dL 05/20/24 15:54 Influenza Type A (PCR) NEGATIVE (Negative) 05/20/24 15:00 Influenza Type B (PCR) NEGATIVE (Negative) 05/20/24 15:00 RSV RNA Qual (PCR) NEGATIVE (Negative) 05/20/24 15:00 SARS-CoV-2 RNA (RT-PCR) NEGATIVE (Negative) 05/20/24 15:00 Crossmatch See Detail 05/20/24 15:54 Impressions Chest X-Ray 05/23/24 18:10 IMPRESSION: Cardiomegaly. Streaky bilateral opacities. Electronically signed by: Huy Montoya DO 05/23/2024 09:10 PM EDT RP Chest CT 05/23/24 18:37 IMPRESSION: Respiratory motion limits evaluation. Scattered areas of groundglass attenuation, consolidation, and bronchial wall thickening throughout the lungs. Findings may be infectious/inflammatory in etiology. Fleischner guidelines were followed. Electronically signed by: Mercedes Ren MD 05/24/2024 07:37 AM EDT RP Head CT 05/23/24 18:37 IMPRESSION: 1. Apparent hypodensity and loss of phillips-white matter differentiation in the left occipital lobe could reflect an evolving acute infarct, however this region of the brain is particularly susceptible to artifact. This could be further evaluated with noncontrast MRI or repeat head CT if clinically indicated. 2. No other acute intracranial abnormality is identified. Above impression was communicated to ERIK Webb at 7:39pm Electronically signed by: Brendon Crawford MD 05/23/2024 07:42 PM EDT RP Discharge Plan Discharge Anticipated Discharge Date/Time: 06/02/24 10:00 Patient Disposition: Hospice - Medical Facility Discharge Diagnosis: COPD respiratory failure Referrals: Jenna Agee MD [Primary Care Provider] - 1 Week Discharge Medications: New acetaminophen 650 mg suppository [address] Q6H PRN (Reason: mild pain or fever) Qty: 50 0RF bisacodyl 10 mg suppository [address] DAILY PRN (Reason: constipation) Qty: 30 0RF haloperidol 0.5 mg tablet 0.5 mg PO Q4H PRN (Reason: nausea, vomiting, or agitation) Qty: 30 0RF hyoscyamine sulfate 0.125 mg tablet 0.25 mg PO Q4H PRN (Reason: secretions) Qty: 30 0RF lorazepam 1 mg tablet 1 mg PO Q4H PRN (Reason: anxiety or dyspnea) Qty: 30 0RF morphine concentrate 100 mg/5 mL (20 mg/mL) solution 5 mg PO Q1H PRN (Reason: pain or dyspnea) Qty: 30 0RF Rx Instructions: Partial Fill upon patient request. Continued (DME) bedside commode Kit See Rx Instructions .Route Qty: 1 0RF Rx Instructions: As directed (DME) Ultra-Light Rollator Misc See Rx Instructions .Route Qty: 1 0RF Rx Instructions: As directed Discontinued bumetanide 1 mg tablet 1 mg PO DAILY Qty: 30 4RF Protocol: Hold for SBP< HOLD for SBP < : 90 metoprolol succinate 50 mg tablet extended release 24 hr 50 mg PO DAILY Qty: 30 6RF Spiriva Respimat 2.5 mcg/actuation mist 2 puff PO DAILY Qty: 4 3RF Xarelto 20 mg tablet 20 mg PO DAILY Qty: 90 1RF Rx Instructions: must administer with evening meal atorvastatin 20 mg tablet 20 mg PO DAILY cholecalciferol (vitamin D3) [Vitamin D3] 25 mcg (1,000 unit) Tablet 25 mcg PO DAILY allopurinol 100 mg tablet 200 mg PO BEDTIME acetazolamide 250 mg tablet 250 mg PO BID 30 Days Qty: 60 5RF Rx Instructions: take on tablet twice daily for 30 days - medication started 02/09/24. Discharge Orders: Discharge Order (Routine); Ordered 06/02/24 Ordered By: Praveen Campbell Diet: Advance to usual diet Activity on Discharge: As tolerated Stand Alone Forms: Patient Portal Discharge page Print Language: Japanese Care Plan Goals: Hospice care Health Concerns: COPD respiratory failure Plan of Treatment: Medications for comfort/palliation of symptoms Assessment: As above
--- NOTE | 2024-06-02 09:55 | MHC.CM.PN ---
DP: PT HAS BEEN CLEARED FOR DC TO [facility] FOR 10 AM VIA MIN DEANS. AWARE. [facility] AWARE AND WILL SIGN ON TODAY.
== END 2024-06-02 10:47 | disposition hospice, inpatient (51) | DRG 193 ==
LOC: HO.ED 14:05 → HO.EDOVER 18:53 → HO.IMC 19:21 → HO.ICU 05-23 17:39 → HO.S3 05-27 11:44
PROVIDERS: Internal Medicine; Internal Medicine Critical Care Medicine; Nurse Practitioner Family; Student in an Organized Health Care Education/Training Program; Admitting Provider Student in an Organized Health Care Education/Training Program; Emergency Provider Emergency Medicine; PCP Internal Medicine; Visit Provider Family Medicine
DX: J18.9 Pneumonia, unspecified organism (principal); G93.41 Metabolic encephalopathy; J96.21 Acute and chronic respiratory failure with hypoxia; J96.22 Acute and chronic respiratory failure with hypercapnia; I48.19 Other persistent atrial fibrillation; I50.32 Chronic diastolic (congestive) heart failure; E87.1 Hypo-osmolality and hyponatremia; J44.0 Chronic obstructive pulmonary disease with (acute) lower respiratory infection; E87.3 Alkalosis; E66.2 Morbid (severe) obesity with alveolar hypoventilation; Z68.37 Body mass index [BMI] 37.0-37.9, adult; Z51.5 Encounter for palliative care; Z66 Do not resuscitate; E78.5 Hyperlipidemia, unspecified; K21.9 Gastro-esophageal reflux disease without esophagitis; K29.70 Gastritis, unspecified, without bleeding; E83.39 Other disorders of phosphorus metabolism; E87.6 Hypokalemia; M10.9 Gout, unspecified; T50.1X5A Adverse effect of loop [high-ceiling] diuretics, initial encounter; R68.0 Hypothermia, not associated with low environmental temperature; K59.00 Constipation, unspecified; Z95.0 Presence of cardiac pacemaker; Z20.822 Contact with and (suspected) exposure to COVID-19; Z99.81 Dependence on supplemental oxygen; Z79.01 Long term (current) use of anticoagulants; Z79.899 Other long term (current) drug therapy
CPT/HCPCS: 0241U; 36415; 36600; 70450; 71045; 71250; 80048; 80076; 80202; 80307; 81001; 82040; 82140; 82533; 82565; 82803; 83605; 83735; 83880; 84100; 84443; 84484; 85025; 85027; 86140; 87040; 87147; 87205; 92610; 93005; 94640; 94660; 97162; 99285; C1758; J0456; J1940; J2543; J2919; J3370; J7120

== ENCOUNTER → 2024-05-20 18:41 | Outpatient (BNV) | payer MEDICARE, SELFPAY | PROVIDERS: Admitting Provider Student in an Organized Health Care Education/Training Program; Emergency Provider Emergency Medicine; Visit Provider Student in an Organized Health Care Education/Training Program | DX: J96.21 Acute and chronic respiratory failure with hypoxia (principal); J96.22 Acute and chronic respiratory failure with hypercapnia; J44.1 Chronic obstructive pulmonary disease with (acute) exacerbation; J18.9 Pneumonia, unspecified organism; G93.41 Metabolic encephalopathy; R06.89 Other abnormalities of breathing | CPT/HCPCS: 99223; 99232; 99233; 99239; 99499 ==

== ENCOUNTER → 2024-05-20 18:41 | Outpatient (BNV) | payer MEDICARE, SELFPAY | PROVIDERS: Admitting Provider Student in an Organized Health Care Education/Training Program; Emergency Provider Emergency Medicine; Visit Provider Internal Medicine Critical Care Medicine | DX: J44.1 Chronic obstructive pulmonary disease with (acute) exacerbation (principal); J96.91 Respiratory failure, unspecified with hypoxia; J96.92 Respiratory failure, unspecified with hypercapnia | CPT/HCPCS: 99223; 99291; 99499 ==